=== PATIENT | female | born 1960 | race Hispanic/Latino ===

== ENCOUNTER 2021-12-22 09:03 | Observation (INO) | payer SELFPAY ==
[2021-12-22] VITALS (13 sets, daily range): BP systolic 88–136; BP diastolic 50–83; PULSE 78–130; RESP 12–18; TEMP 36.1–36.7; O2SAT 88–100; BMI 42.3
--- NOTE | 2021-12-22 | GALL_PTH ---
PATIENT: KIERRA FLOWER #:[id number] LOC: MS3 U#:[id number] AGE/SX: 61/F ROOM: NC315 RE12/22/[address]: Dr. Seth Lauren MD : 1960 BED: 1 DIS: 12/24/2021 SPEC #: [id number] RECD: 12/23/21 10:12 STATUS: FAHAD NGUYEN #: [id number] SERGEI: 12/22/21 00:[address]: Seth Lauren DEPT: SURGICAL PATHOLOGY RECD BY: Dominic Molina ENTERED: 12/23/21 10:12 SP TYPE: FUNMI [place] DR: Dr. Daniel Hess MD Tissues: Gallbladder, NOS Procedures: Surgery Specimen Level III HEADER OPERATION: Laparoscopic cholecystectomy with IOC PRE-OP DIAGNOSIS: Acute cholecystitis TISSUE SUBMITTED: Gallbladder MICROSCOPIC DIAGNOSIS Gallbladder, cholecystectomy: Chronic cholecystitis with denudation of mucosa and cholelithiasis. AM:rg 12/26/2021 MICROSCOPIC DESCRIPTION Slides are reviewed. GROSS DESCRIPTION Received is one container labeled with the patient's name and designated gallbladder. The specimen consists of a gallbladder measuring 9 x 4 x 3.5 cm. The external surface is smooth and glistening. Focally, it is granular, hemorrhagic and contains cautery artifact. The lumen of the gallbladder contains yellow-green mucoid bile and multiple chalky-white calculi ranging in size from <0.1 to 0.7 cm in greatest dimension. The gallbladder mucosa is smooth and glistening bile-stained and without any mass lesions. The gallbladder wall averages 0.2 cm in thickness and is free of mass lesions. Copy And [employer] Associate sections of the gallbladder and the cystic duct at margin of resection are submitted in one cassette. / AM:colby 12/23/2021 TC:3 CPT: 95697
--- NOTE | 2021-12-22 09:14 | EKG12_ITS ---
Test Reason : CP Blood Pressure : / mmHG Vent. Rate : 135 BPM Atrial Rate : 135 BPM P-R Int : 132 ms QRS Dur : 064 ms QT Int : 306 ms P-R-T Axes : 049 024 074 degrees QTc Int : 459 ms Sinus tachycardia Nonspecific ST and T wave abnormality Abnormal ECG Confirmed by AMADOR IVAN, ELIDA ([id number]), medical editor VERN VALDOVINOS ([id number]) on 12/26/2021 11:11:15 AM Referred By: MAKENZIE Confirmed By:ELIDA ENGLISH MD
--- NOTE | 2021-12-22 09:14 | CT_ITS ---
STUDY: CT ABDOMEN AND PELVIS WITH CONTRAST REASON FOR EXAM: Female, 61 years old. Abdominal pain RADIATION DOSAGE (If Supplied By Facility): CTDIvol = ( 18.47 ) mGy, DLP = ( 1279.77 ) mGycm TECHNIQUE: Transaxial images were obtained from the dome of the diaphragm to the symphysis pubis without oral contrast. IV 100mL Isovue-300 was administered. Sagittal and coronal images were reconstructed. Individualized dose optimization techniques were used for this CT. COMPARISON: None. FINDINGS: There is shift of the heart and mediastinal structures towards the right hemithorax. Multiple small cystic spaces are seen in the right lower lobe with air-fluid levels. These may represent pneumatoceles or infected bulla. There is evidence of a small right pleural effusion. The visualized portions of the heart are within normal limits. Perihepatic fluid. Decreased size of the liver with the nodular contour suggestive of cirrhosis. Marked degree of a distention of the gallbladder. Mild splenomegaly. Normal pancreas. Normal bilateral adrenal glands. Normal right kidney. Normal left kidney. Residual fluid and fluid seen within the stomach. There is diffuse thickening of the gastric wall. A mass lesion should be ruled out. Normal small intestine. There are multiple colonic diverticula consistent with diverticulosis. There is a tubular, thick-walled appendix (>7mm), consistent with acute appendicitis. Normal abdominal aorta. Normal inferior vena cava. Normal retroperitoneum. Increased markings within the mesenteric fat. Inflammatory process should be ruled out. Normal urinary bladder. Fluid is seen within the pelvis. There is evidence of an umbilical hernia containing fat. Normal osseous structures. CT/Abdomen/Pelvis W IV Cont ONLY IMPRESSION: Loss of volume in the right hemithorax with multiple cystic spaces in the right lower lobe with air-fluid levels. Ascites. Findings suggestive of cirrhosis of the liver. Markedly distended gallbladder. There is thickening of the appendix and keep with appendicitis. Increased markings in the mesenteric fat suggestive of inflammatory changes. Sigmoid diverticulosis. Electronically Signed: Valeriano Hull MD at 11:03 EST ,
--- NOTE | 2021-12-22 09:15 | US_ITS ---
STUDY: ABDOMINAL ULTRASOUND - RIGHT UPPER QUADRANT REASON FOR VISIT: Female, 61 years old abdominal pain. Nausea and vomiting. TECHNIQUE: Ultrasound evaluation of the right upper quadrant was performed with real-time and static novak-scale imaging. TECHNICAL QUALITY: Limited. Examination limited due to the patient?s condition. COMPARISON: None. FINDINGS: Liver: The liver measures 14.1 cm. There is a heterogeneous echogenicity of the liver. The bile ducts are within normal limits. There is hepatic color flow. The direction of portal flow is hepatopetal. There is no demonstrated mass lesion. Gallbladder: There is a markedly distended gallbladder. The gallbladder wall is thickened and measures 10.6 mm. There is a positive sonographic Mock''s sign. There is pericholecystic fluid. There are multiple echogenic structures within the gallbladder, consistent with multiple gallstones. Common Bile Duct (C.B.D.): The common bile duct was not visualized. Pancreas: There is nonvisualization of the pancreas due to overlying bowel gas. Right Kidney: Normal size of the right kidney. The right kidney measures 10.9 cm x 5.9 cm x 5.5 cm. Normal renal cortex. The right cortex measures 1.7 cm. There is no demonstrated renal mass or cyst. There is no right hydronephrosis. US/Gallbladder IMPRESSION: Heterogeneous hepatic echotexture. Thickening gallbladder wall with distention and multiple gallstones. Electronically Signed: Valeriano Hull MD at 11:05 EST ,
--- NOTE | 2021-12-22 09:16 | ED.VIS.GI ---
HPI HPI - GI History of Present Illness Chief Complaint: Abd Pain Narrative Narrative: History and physical is mildly limited secondary to language barrier. Patient speaks mainly Marshallese. 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 Additionally, I can speak conversational Marshallese to a small to moderate degree. Patient presents to the emergency department this morning with epigastric to right upper quadrant abdominal pain. She had normal bowel movement today. She denies any exacerbating or alleviating factors. No fevers or chills. She vomited once with a small amount of blood. She does not take blood thinners. She denies any significant past medical history except for she has been treated for bronchitis with an inhaler. She denies any chest pain. No other symptoms. She complains of pain in the upper portion of her abdomen. [facility] Medical History Bronchitis Allergy/AdvReac Type Severity Reaction Status Date / Time No Known Allergies Allergy Verified 12/22/21 09:11 Surgical History no surgical history Social History Smoking Status: Never smoker ROS ROS ED ROS Narrative Constitutional: No fever, no chills. HEENT: No sore throat. No neck pain. No loss of vision. No rhinorrhea. Cardiovascular: No chest pain. No palpitations. No pedal edema. Respiratory: No cough, no shortness of breath. Abdominal: Epigastric to right upper quadrant abdominal pain. Positive nausea. 1 episode of vomiting with a small amount of blood. Genitourinary: No dysuria. No hematuria. Musculoskeletal: No myalgias. No arthralgias. Neurologic: No headaches. No dizziness. No lightheadedness. Skin: No rash. No change in color. Psychiatric: No depression. No anxiety. EXAM Physical Exam Narrative Exam Narrative: Afebrile. Vital signs noted. HEENT: Normocephalic. Atraumatic. PERRL, EOMI. Neck soft and supple. No point tenderness or step off. Cardiovascular: Positive tachycardia no murmurs, rubs, or gallops appreciated. Respiratory: No tachypnea. Lungs clear to auscultation bilaterally. Gastrointestinal: Abdomen soft, with tenderness to palpation in the epigastrium to right upper quadrant, with normoactive bowel sounds. No rebound or guarding. Questionable Mock sign, limited secondary to body habitus. Neurological: Awake. Alert. Nonfocal, nonlateralizing. Skin: No rash. Normal color. No pallor. Musculoskeletal: No pedal edema. Full range of motion extremities. Const Vital Signs: 12/22/21 09:07 12/22/21 10:47 Temperature 97.8 F Temperature Source Temporal Pulse Rate 130 H 116 H Respiratory Rate 12 12 Blood Pressure 136/83 H 102/58 L Blood Pressure Mean 100 72 Pulse Ox 99 100 Oxygen Delivery Method Room Air Room Air MDM MDM MDM Narrative Medical decision making narrative: Comprehensive work-up was pursued. Her EKG shows sinus tachycardia at a rate of [address] changes/no STEMI. She was administered morphine and ondansetron and will be bolused normal saline. I have concern that while she may have pancreatitis versus cholecystitis. She has normal white count of 9.7, hemoglobin stable at 11.2, platelet count normal at 172. Lactic acid elevated at 3.1. Lipase normal at 55. High-sensitivity troponin negative at 8. She has an elevated alk phos at 187, AST and ALT only slightly elevated at 39 and the other being normal. I did obtain a CT of the abdomen and pelvis along with an ultrasound of the right upper quadrant. It appears that she has an acute appendicitis because it is tubular, and dilated greater than 7 mm. Additionally, she has gallstones and a thickened gallbladder wall at 10.6 mm. Common bile duct was not visualized. She was started on Zosyn. I did discuss the patient with Dr. Sutton with general surgery who will admit her and take her to the operating room. Additionally, it was noted on her CT that she has cirrhosis of the liver along with ascites, and bullae in her right lower lobe of her lung that have air-fluid levels in it. I do feel these are more incidental findings when compared to her acute appendicitis and acute cholecystitis. Patient will be admitted in stable condition. Lab Data Labs: Laboratory Results - last 24 hr 12/22/21 12/22/21 12/22/21 09:10 09:10 09:10 WBC 9.7 RBC 3.45 L Hgb 11.2 L Hct 34.4 L MCV 99.7 H MCH 32.5 H MCHC 32.6 RDW Std Deviation 53.9 H RDW Coeff of Blas 14.6 Plt Count 172 MPV 10.2 Immature Gran % (Auto) 0.200 Neut % (Auto) 64.5 Lymph % (Auto) 29.6 [place] % (Auto) 5.1 Eos % (Auto) 0.2 Baso % (Auto) 0.4 Absolute Neuts (auto) 6.3 Absolute Lymphs (auto) 2.87 Nucleated RBC % 0 PT INR Sodium 141 Potassium 4.2 Chloride 108 H Carbon Dioxide 30.0 Anion Gap 3 L BUN 29 H Creatinine 0.70 Estim Creat Clear Calc 62.16 Est GFR (MDRD) Af Amer 110 Est GFR (MDRD) Non-Af 91 BUN/Creatinine Ratio 41.5 H Glucose 124 H Lactic Acid 3.1 H* Calcium 7.6 L Total Bilirubin 2.00 H AST 39 H ALT 26 Alkaline Phosphatase 187 H Troponin I High Sens 8 Total Protein 6.7 Albumin 2.0 L Globulin 4.7 H Albumin/Globulin Ratio 0.4 L Lipase 55 L 12/22/21 09:10 WBC RBC Hgb Hct MCV MCH MCHC RDW Std Deviation RDW Coeff of Blas Plt Count MPV Immature Gran % (Auto) Neut % (Auto) Lymph % (Auto) [place] % (Auto) Eos % (Auto) Baso % (Auto) Absolute Neuts (auto) Absolute Lymphs (auto) Nucleated RBC % PT 19.4 H INR 1.7 Sodium Potassium Chloride Carbon Dioxide Anion Gap BUN Creatinine Estim Creat Clear Calc Est GFR (MDRD) Af Amer Est GFR (MDRD) Non-Af BUN/Creatinine Ratio Glucose Lactic Acid Calcium Total Bilirubin AST ALT Alkaline Phosphatase Troponin I High Sens Total Protein Albumin Globulin Albumin/Globulin Ratio Lipase Radiography Diagnostic Testing: Clinical Impression(s) from Imaging Studies Abdomen/Pelvis CT 12/22/21 09:14 IMPRESSION: Loss of volume in the right hemithorax with multiple cystic spaces in the right lower lobe with air-fluid levels. Ascites. Findings suggestive of cirrhosis of the liver. Markedly distended gallbladder. There is thickening of the appendix and keep with appendicitis. Increased markings in the mesenteric fat suggestive of inflammatory changes. Sigmoid diverticulosis. Electronically Signed: Valeriano Hull MD at 11:03 EST , Gallbladder Ultrasound 12/22/21 09:15 IMPRESSION: Heterogeneous hepatic echotexture. Thickening gallbladder wall with distention and multiple gallstones. Electronically Signed: Valeriano Hull MD at 11:05 EST , Discharge Plan Dx/Rx/DC Orders Clinical Impression: Cholecystitis, Appendicitis, Lactic acidosis, Cirrhosis of liver, Lung bullae Disposition Disposition: Acute Care Hospital [facility]
[2021-12-22] MEDS: 0.9% Normal Saline 1,000 ML 1000 ML IV (09:19)
[2021-12-22] MEDS: Ondansetron 4 MG/2 ML Vial IV ×3 (09:19→22:02)
[2021-12-22] MEDS: Morphine 4 MG/ML Syringe IV (09:19)
[2021-12-22 09:31] LABS: Absolute Lymphocyte Count 2.87 X10^3/uL (0.83-4.51); Absolute Neutrophil Count 6.3 X10^3/uL (2.0-7.7); Basophil# 0.04 X10^3/uL; Basophil% 0.4 % (0-1); Eosinophil# 0.02 X10^3/uL; Eosinophils% 0.2 % (0-5); Hematocrit 34.4 % (37-47); Hemoglobin 11.2 g/dL (12.0-15.0); Lymphocyte # 2.87 X10^3/ul (0.83-4.51); Lymphocyte % 29.6 % (19-41); Mean Corp Hgb Conc 32.6 g/dL (32-36); Mean Corpuscular Hgb 32.5 pg (27.0-32.0); Mean Corpuscular Volume 99.7 fL (81-99); Mean Platelet Vol. 10.2 fl (6.2-12.0); Monocyte# 0.49 X10^3/uL; Monocyte% 5.1 % (0-10); NRBC Flagged by Analyzer 0 % (0-5); Neutrophil # 6.26 X10^3/uL (2.7-7.7); Neutrophil % 64.5 % (47-70); Platelet Count 172 K/mm3 (150-450); RBC Distribution Width CV 14.6 % (11.6-14.6); RBC Distribution Width SD 53.9 fl (35.1-43.9); Red Blood Count 3.45 M/mm3 (4.2-5.4); White Blood Count 9.7 K/mm3 (4.4-11.0)
[2021-12-22 09:48] LABS: ALB/GLOB Ratio 0.4 RATIO (0.9-2.4); AST(SGOT) 39 U/L (15-37); Alanine Aminotransfer ALT/SGPT 26 U/L (13-56); Alkaline Phosphatase 187 U/L (45-117); Anion Gap 3 (5-15); BUN 29 mg/dL (7-18); BUN/Creat Ratio 41.5 RATIO (10-20); Calcium,Total 7.6 mg/dL (8.5-10.1); Chloride 108 mmol/L (98-107); EST Glomerular Filtration Rate 91 mL/min (>60); Est Glom Filt Rate - Afr Amer 110 mL/min (>60); Estimated Creatinine Clearance 62.16 ml/min; Globulin 4.7 g/dL (2.2-4.2); Glucose 124 mg/dL (74-106); Lipase 55 U/L (73-393); Potassium 4.2 mmol/L (3.5-5.1); Protein, Total 6.7 g/dL (6.4-8.2); Sodium Level 141 mmol/L (136-145); Troponin-I HS 8 pg/mL (3.0-54.0)
[2021-12-22 09:58] LABS: Lactic Acid 3.1 mmol/L (0.4-1.9)
[2021-12-22] MEDS: 0.9% Normal Saline 1,000 ML 999 ML IV (10:32)
[2021-12-22 12:06] LABS: International Normalized Ratio 1.7; Prothrombin Time (Protime)PT. 19.4 SECONDS (11.7-14.9)
--- NOTE | 2021-12-22 12:17 | PCM.HP.STD ---
HPI - General HPI Narrative KIERRA FOSTER, is a 61 F who presents with epigastric pain. No fevers or chills. No nausea or vomiting. PFSH Medical History Bronchitis Allergy/AdvReac Type Severity Reaction Status Date / Time No Known Allergies Allergy Verified 12/22/21 09:11 Surgical History no surgical history Social History Smoking Status: Never smoker ROS Constitutional Constitutional: Denies anorexia or fatigue Cardiovascular Cardiovascular: Denies chest pain Respiratory/Chest Respiratory/Chest: Denies cough Gastrointestinal Gastrointestinal: Reports abdominal pain; Denies nausea or vomiting Genitourinary Genitourinary: Denies difficulty urinating Musculoskeletal Musculoskeletal: Denies difficulty walking Integumentary Integumentary: Denies jaundice Neurologic Neurologic: Denies abnormal gait Psychiatric Psychiatric: Denies anxiety Endocrine Endocrinology: Denies flushing Vital Signs Vital Signs Vital Signs: 12/22/21 09:07 12/22/21 10:47 Temperature 97.8 F Temperature Source Temporal Pulse Rate 130 H 116 H Respiratory Rate 12 12 Blood Pressure 136/83 H 102/58 L Blood Pressure Mean 100 72 Pulse Ox 99 100 Oxygen Delivery Method Room Air Room Air Weight Weight: 216 lb 14.958 oz Body Mass Index (BMI) 42.3 Physical Exam Const oriented x3 and no apparent distress Resp normal respiratory effort Cardio regular rate and regular rhythm GI soft to palpation Palpation: tender epigastric Results Lab / Micro Data Result Diagrams: 12/22/21 09:10 12/22/21 09:10 Labs: Laboratory Results - last 24 hr 12/22/21 09:10: WBC 9.7, RBC 3.45 L, Hgb 11.2 L, Hct 34.4 L, MCV 99.7 H, MCH 32.5 H, MCHC 32.6, RDW Std Deviation 53.9 H, RDW Coeff of Blas 14.6, Plt Count 172, MPV 10.2, Immature Gran % (Auto) 0.200, Neut % (Auto) 64.5, Lymph % (Auto) 29.6, [place] % (Auto) 5.1, Eos % (Auto) 0.2, Baso % (Auto) 0.4, Absolute Neuts (auto) 6.3, Absolute Lymphs (auto) 2.87, Nucleated RBC % 0 12/22/21 09:10: Sodium 141, Potassium 4.2, Chloride 108 H, Carbon Dioxide 30.0, Anion Gap 3 L, BUN 29 H, Creatinine 0.70, Estim Creat Clear Calc 62.16, Est GFR (MDRD) Af Amer 110, Est GFR (MDRD) Non-Af 91, BUN/Creatinine Ratio 41.5 H, Glucose 124 H, Calcium 7.6 L, Total Bilirubin 2.00 H, AST 39 H, ALT 26, Alkaline Phosphatase 187 H, Troponin I High Sens 8, Total Protein 6.7, Albumin 2.0 L, Globulin 4.7 H, Albumin/Globulin Ratio 0.4 L, Lipase 55 L 12/22/21 09:10: Lactic Acid 3.1 H* 12/22/21 09:10: PT 19.4 H, INR 1.7 Micro: Microbiology 12/22/21 11:20 Nasal Secretion SARS-CoV-2 Antigen (Rapid) - Final Radiology Impression Abdomen/Pelvis CT 12/22/21 09:14 IMPRESSION: Loss of volume in the right hemithorax with multiple cystic spaces in the right lower lobe with air-fluid levels. Ascites. Findings suggestive of cirrhosis of the liver. Markedly distended gallbladder. There is thickening of the appendix and keep with appendicitis. Increased markings in the mesenteric fat suggestive of inflammatory changes. Sigmoid diverticulosis. Electronically Signed: Valeriano Hull MD at 11:03 EST , Gallbladder Ultrasound 12/22/21 09:15 IMPRESSION: Heterogeneous hepatic echotexture. Thickening gallbladder wall with distention and multiple gallstones. Electronically Signed: Valeriano Hull MD at 11:05 EST , Assessment & Plan Assessment/Plan (1) Cholecystitis: (2) Appendicitis: QUALIFIERS: Appendicitis type: unspecified Qualified Code(s): K37 - Unspecified appendicitis (3) Cirrhosis of liver: QUALIFIERS: Hepatic cirrhosis type: unspecified hepatic cirrhosis Ascites presence: with ascites Qualified Code(s): K74.60 - Unspecified cirrhosis of liver; R18.8 - Other ascites PLAN: Patient has epigastric pain and a CT scan shows a very distended gallbladder as well as cirrhosis of the liver with ascites. Patient also has inflammation around the right lower quadrant with possible acute appendicitis. Gallbladder ultrasound shows cholelithiasis with thickened wall. There is a lot of fluid and a lot of epigastric pain and a very large gallbladder so I do recommend laparoscopic cholecystectomy with cholangiogram. I did discuss with the patient that she is at increased risk due to her cirrhosis. I also discussed possible appendectomy if the appendix appears inflamed. I discussed the procedure in detail with the patient. I discussed the risks, benefits, and alternatives of the procedure. I discussed the risks including but not limited to bleeding, infection, injury to surrounding organs such as the liver, bile duct, bowels. I did discuss the possibility of having to convert to an open procedure as well as the possibility that if any injuries occurred this may necessitate further surgery at a tertiary care center. Seth Lauren MD Pager: [facility] [address] [place] [address], [address] [place] [address] Office:
[2021-12-22] MEDS: Metoclopramide 10 MG/2 ML Vial IV (12:27)
[2021-12-22] MEDS: Lactated Ringers 1,000 ML 15 ML IV ×2 (12:52→15:30)
[2021-12-22 13:27] LABS: Reflex Lactate? Y
[2021-12-22 14:46] LABS: Lactic Acid 2.9 mmol/L (0.4-1.9)
--- NOTE | 2021-12-22 14:59 | RAD_ITS ---
CLINICAL HISTORY: Female, 61 years old. Right upper quadrant pain PROCEDURE: CHOLANGIOGRAM - intraoperative FLUOROSCOPY TIME (if supplied): ( ) minutes/seconds Placement of the catheter and the procedure were performed by: Operating surgeon Fluoroscopy was provided by rn radiology, who was present in the room time of the procedure. TECHNIQUE: Fluoroscopic guidance transhepatic cholangiogram was performed in the anterior projection. 162 fluoroscopic guided dynamic images were obtained during the procedure as well as additional static images during the procedure for documentation purposes. For more complete information recommend correlation with surgical notes RAD/Cholangiogram/ O R,Initial IMPRESSION: Fluoroscopic guided transhepatic cholangiogram. Electronically Signed: Eldon Olivares MD at 16:55 EST ,
[2021-12-22] MEDS: Bupivacaine Mpf 0.5% 30 ML VIAL (15:00)
--- NOTE | 2021-12-22 16:02 | OP.PCM_ITS ---
Problems Associated Problem List Diagnoses (1) Cholecystitis: Report of Operation Date of Procedure: 12/22/21 Pre-Operative Diagnosis: Acute cholecystitis Post-Operative Diagnosis: Acute cholecystitis and cirrhosis of the liver Surgery/Procedure Performed:: Laparoscopic cholecystectomy with cholangiogram Description of Surgical Findings:: Acute cholecystitis Specimen's removed: Gallbladder Description of Procedure: After obtaining informed consent patient was brought back to the operating room. General anesthesia was induced. The abdomen was prepped and draped in usual sterile fashion. A small midline incision was made superior to the umbilicus and deepened to the level of fascia. The fascia was elevated and incised. Next the peritoneum was elevated and incised in the same fashion. Finger sweep was performed and the Lopes trocar was placed into the abdomen. The balloon was inflated. The abdomen was inflated to 15 mmHg. Next a camera was introduced into the abdomen and the abdomen was inspected. Next under direct visualization three 5-mm ports were placed one subxiphoid and 2 subcostal. Next the gallbladder was elevated and retracted toward the right shoulder. The peritoneum was stripped from the gallbladder. The gallbladder was inflamed. The infundibulum was located and retracted laterally. Next the triangle of Calot was dissected and the cystic duct and cystic artery were identified. Cholangiograms were performed. There was a large stone in the cystic duct. A clip was placed proximal to this and the cystic duct was incised. The stone was milked from the duct and removed. Next the Ranfac catheter was placed through a stab incision in the right upper quadrant into the duct and a clip was placed over it and under fluoroscopy contrast was instilled into the gallbladder and the common duct, cystic duct as well as proximal hepatic ducts were identified. There was good filling of the duodenum. There were no filling defects noted in the common bile duct. The clamp was removed as well as the needle and the infundibulum was grasped once more. The cystic duct was too large for a clip and so it was divided and then a Vicryl Endoloop was placed around it. There is no bile leakage. The cystic artery was clipped and divided. The hook cautery was then used to take the gallbladder off of the gallbladder bed. The patient had clear cirrhosis of the liver. Hemostasis was obtained. Gallbladder fossa was irrigated and no active bleeding or bile leakage was noted. Next the camera was introduced in the subxiphoid port. An Endopouch bag was placed through the umbilical port and the gallbladder was placed into it. The gallbladder was then removed through the umbilical incision. The camera was then reinserted through the umbilical port. The gallbladder fossa was inspected once more and noted to be hemostatic with no leaking bile. The abdomen was suctioned dry. The 5 mm ports were removed under direct visualization. The umbilical port was then removed and the air was removed from the abdomen. Next using an 0 Vicryl suture the umbilical fascia was closed in a [id number] fashion. The umbilical port site was irrigated local anesthetic was administered to all the incisions. All the incisions were closed with interrupted subcuticular 4-0 Monocryl sutures followed by Steri- Strips and dressings. The patient was awoken and taken to PACU in stable condition. Admit VTE Documentation VTE Mechan Device Prophylaxis: SCD's
--- NOTE | 2021-12-22 16:52 | SUR.PHASEI ---
PATIENT IS MONITORED ON ETCO2 NASAL CANNULA IN PACU. WILL CONTINUE TO MONITOR.
--- NOTE | 2021-12-22 17:52 | CON.PCM.GI_ITS ---
HPI Consult Data Date of Consult: 12/22/21 HPI Narrative HPI Narrative: KIERRA FOSTER, is a 61 F who presentsFrom home with worsening abdominal pain. All the history is obtained from her son as she is only Icelandic-speaking. She has no history of alcoholism. She has no history of hepatitis C. She has not received any blood transfusions. She has not seen a liver doctor for cirrhosis. There is shift of the heart and mediastinal structures towards the right hemithorax. Multiple small cystic spaces are seen in the right lower lobe with air-fluid levels. These may represent pneumatoceles or infected bulla. There is evidence of a small right pleural effusion. The visualized portions of the heart are within normal limits. Perihepatic fluid. Decreased size of the liver with the nodular contour suggestive of cirrhosis. Marked degree of a distention of the gallbladder. Mild splenomegaly. Normal pancreas. Normal bilateral adrenal glands. Normal right kidney. Normal left kidney. Residual fluid and fluid seen within the stomach. There is diffuse thickening of the gastric wall. A mass lesion should be ruled out. Normal small intestine. There are multiple colonic diverticula consistent with diverticulosis. There is a tubular, thick-walled appendix (>7mm), consistent with acute appendicitis. Normal abdominal aorta. Normal inferior vena cava. Normal retroperitoneum. Increased markings within the mesenteric fat. Inflammatory process should be ruled out. Normal urinary bladder. Fluid is seen within the pelvis. There is evidence of an umbilical hernia containing fat. Normal osseous structures. PFSH Medical History Bronchitis Allergy/AdvReac Type Severity Reaction Status Date / Time No Known Allergies Allergy Verified 12/22/21 09:11 Surgical History no surgical history Social History Smoking Status: Never smoker ROS Gastrointestinal Gastrointestinal: Reports abdominal pain Physical Exam Const alert General Appearance: cooperative Orientation / Consciousness: oriented to person HEENT hearing grossly normal bilaterally Head and Scalp: normal to inspection Face and Sinus: face symmetric Nose: external nose normal Mouth: oral and palatal mucosa normal Eyes conjunctivae normal General Eye: normal appearance of both eyes Neck full ROM General: normal visual inspection Lymph Lymphatic: no lymphadenopathy noted Chest inspection of chest normal and palpation of chest normal Chest: symmetrical chest wall rise Resp normal respiratory effort Cardio regular rate GI non-distended Percussion: normal to percussion Rectal Exam: deferred Neuro Speech: speech normal Lab / Micro Data Result Diagrams: 12/22/21 09:10 12/22/21 09:10 Labs: Laboratory Results - last 24 hr 12/22/21 09:10: WBC 9.7, RBC 3.45 L, Hgb 11.2 L, Hct 34.4 L, MCV 99.7 H, MCH 32.5 H, MCHC 32.6, RDW Std Deviation 53.9 H, RDW Coeff of Blas 14.6, Plt Count 172, MPV 10.2, Immature Gran % (Auto) 0.200, Neut % (Auto) 64.5, Lymph % (Auto) 29.6, [place] % (Auto) 5.1, Eos % (Auto) 0.2, Baso % (Auto) 0.4, Absolute Neuts (auto) 6.3, Absolute Lymphs (auto) 2.87, Nucleated RBC % 0 12/22/21 09:10: Sodium 141, Potassium 4.2, Chloride 108 H, Carbon Dioxide 30.0, Anion Gap 3 L, BUN 29 H, Creatinine 0.70, Estim Creat Clear Calc 62.16, Est GFR (MDRD) Af Amer 110, Est GFR (MDRD) Non-Af 91, BUN/Creatinine Ratio 41.5 H, Glucose 124 H, Calcium 7.6 L, Total Bilirubin 2.00 H, AST 39 H, ALT 26, Alkaline Phosphatase 187 H, Troponin I High Sens 8, Total Protein 6.7, Albumin 2.0 L, Globulin 4.7 H, Albumin/Globulin Ratio 0.4 L, Lipase 55 L 12/22/21 09:10: Lactic Acid 3.1 H* 12/22/21 09:10: PT 19.4 H, INR 1.7 12/22/21 14:10: Lactic Acid 2.9 H* Micro: Microbiology 12/22/21 11:20 Nasal Secretion SARS-CoV-2 Antigen (Rapid) - Final Radiology Impression Abdomen/Pelvis CT 12/22/21 09:14 IMPRESSION: Loss of volume in the right hemithorax with multiple cystic spaces in the right lower lobe with air-fluid levels. Ascites. Findings suggestive of cirrhosis of the liver. Markedly distended gallbladder. There is thickening of the appendix and keep with appendicitis. Increased markings in the mesenteric fat suggestive of inflammatory changes. Sigmoid diverticulosis. Electronically Signed: Valeriano Hull MD at 11:03 EST , Gallbladder Ultrasound 12/22/21 09:15 IMPRESSION: Heterogeneous hepatic echotexture. Thickening gallbladder wall with distention and multiple gallstones. Electronically Signed: Valeriano Hull MD at 11:05 EST , Cholangiogram 12/22/21 14:59 IMPRESSION: Fluoroscopic guided transhepatic cholangiogram. 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 Her current meld is 22. She is decompensated at this time secondary to acute cholecystitis. I believe that she has a mild right hepatic hydrothorax. She is satting well on room air and not in any respiratory compromise despite her bullous disease of her lungs and mediastinal shift of her heart. She should probably be seen by pulmonary for chronic lung disease. Her INR is elevated. Therefore I will give her 5 mg of vitamin K. - I will also place her on Xifaxan 550 mg twice a day for hepatic encephalopathy prophylaxis along with lactulose 20 mg a day. She will also need to be on ursodiol 550mg to prevent further decompensated liver disease. -She has some diffuse thickening on her stomach that is seen on CT scan possibly secondary to under distention and should be assessed for gastric varices. Right now her blood pressure is low, therefore we do not need beta-nathan therapy. -She also had some ascites that was seen on imaging. She will need Lasix 20 mg and Aldactone 12.5 mg a day so she does not redevelop an hepatic hydrothorax or expand hydrothorax. She should also get albumin overnight. -Possible dextrocardia. Her son did not know that her heart was on the right side. She does not seem to be experiencing any signs of right heart failure at this time. I Would watch her fluid balance. -Repeat INR, LFTs, CBC and CMP, ammonia in the AM
[2021-12-22] MEDS: Albumin Human 25% (50 mL) 12.5 GM/50 ML IV.SOLN IV (19:02)
[2021-12-22] MEDS: Morphine 2 MG/ML Syringe IV ×2 (19:10→21:57)
[2021-12-22] MEDS: 0.9% Saline Lock 10 ML Syringe IV (19:11)
[2021-12-22] MEDS: Furosemide 20 MG Tablet PO (19:19)
[2021-12-22] MEDS: 0.9% Normal Saline 1,000 ML 100 ML IV (20:00)
[2021-12-22] MEDS: rifAXIMin 550 MG Tablet PO (22:16)
[2021-12-22] MEDS: Spironolactone 25 MG Tablet 12.5 MG PO (22:16)
[2021-12-22] MEDS: Pantoprazole Sodium 20 MG Tablet PO (22:16)
--- NOTE | 2021-12-22 23:03 | NURSING ---
Patient having difficulty understanding how to use the purewick. patient assisted up to the BSC and XLG incontinence of urine noted. Patient assisted to the BSC to finish voiding and to do bed change of linens. X2 assist to BSC- tolerated well
[2021-12-23] VITALS (10 sets, daily range): BP systolic 94–109; BP diastolic 53–74; PULSE 78–99; RESP 16–18; TEMP 36.5–37.2; O2SAT 84–100
[2021-12-23 06:01] LABS: Absolute Neutrophil Count 7.9 X10^3/uL (2.0-7.7); Basophil# 0.02 X10^3/uL; Basophil% 0.2 % (0-1); Hematocrit 28.7 % (37-47); Hemoglobin 8.9 g/dL (12.0-15.0); Lymphocyte % 15.4 % (19-41); Mean Corpuscular Hgb 31.1 pg (27.0-32.0); Mean Corpuscular Volume 100.3 fL (81-99); Mean Platelet Vol. 9.8 fl (6.2-12.0); Monocyte# 0.27 X10^3/uL; Monocyte% 2.8 % (0-10); NRBC Flagged by Analyzer 0 % (0-5); Neutrophil # 7.91 X10^3/uL (2.7-7.7); Neutrophil % 81.1 % (47-70); Platelet Count 139 K/mm3 (150-450); RBC Distribution Width SD 55.8 fl (35.1-43.9); Red Blood Count 2.86 M/mm3 (4.2-5.4); White Blood Count 9.8 K/mm3 (4.4-11.0)
[2021-12-23] MEDS: 0.9% Normal Saline 1,000 ML 100 ML IV (06:18)
[2021-12-23 06:34] LABS: ALB/GLOB Ratio 0.5 RATIO (0.9-2.4); AST(SGOT) 71 U/L (15-37); Alanine Aminotransfer ALT/SGPT 38 U/L (13-56); Alkaline Phosphatase 145 U/L (45-117); Anion Gap 1 (5-15); BUN 28 mg/dL (7-18); BUN/Creat Ratio 44.1 RATIO (10-20); Calcium,Total 7.2 mg/dL (8.5-10.1); Chloride 110 mmol/L (98-107); Creatinine, Serum 0.64 mg/dL (0.55-1.02); EST Glomerular Filtration Rate 102 mL/min (>60); Est Glom Filt Rate - Afr Amer 123 mL/min (>60); Estimated Creatinine Clearance 67.98 ml/min; Globulin 4.1 g/dL (2.2-4.2); Glucose 160 mg/dL (74-106); Potassium 4.2 mmol/L (3.5-5.1); Protein, Total 6.1 g/dL (6.4-8.2); Sodium Level 143 mmol/L (136-145)
--- NOTE | 2021-12-23 07:51 | CPS ---
Unable to perform, language barrier difficult for pt to understand instructions, weak effort
--- NOTE | 2021-12-23 07:55 | PCM.PROGNOTE ---
Subjective Subjective Patient is postop day 1 from cholecystectomy. She did very well overnight. She has minimal abdominal pain. She does not speak Lithuanian so all of her responses are through her son. She has no fever. She denies any dark in urine. She had no episodes of altered mental status overnight. As per her son she seems to be at her baseline. Objective Data Objective Data Vital Signs: Vital Signs Temp Pulse Resp BP Pulse Ox 98.0 F 97 18 100/53 L 98 12/23/21 05:44 12/23/21 05:44 12/23/21 05:44 12/23/21 05:44 12/23/21 07:47 Oxygen Flow Rate (L/min) 2 Oxygen Delivery Method Nasal Cannula Weight: 216 lb 14.958 oz Body Mass Index (BMI) 42.3 Intake & Output: Intake and Output for Last 24 Hours 12/21/21 12/22/21 12/23/21 23:59 23:59 23:59 Intake Total 3150.5 / 3150.5 1356.5 / 1356.5 Output Total 200 / 200 300 / 300 Balance 2950.5 / 2950.5 1056.5 / 1056.5 Lab / Micro Data Result Diagrams: 12/23/21 05:52 12/23/21 05:52 Labs: Laboratory Results - last 24 hr 12/22/21 09:10: WBC 9.7, RBC 3.45 L, Hgb 11.2 L, Hct 34.4 L, MCV 99.7 H, MCH 32.5 H, MCHC 32.6, RDW Std Deviation 53.9 H, RDW Coeff of Blas 14.6, Plt Count 172, MPV 10.2, Immature Gran % (Auto) 0.200, Neut % (Auto) 64.5, Lymph % (Auto) 29.6, [place] % (Auto) 5.1, Eos % (Auto) 0.2, Baso % (Auto) 0.4, Absolute Neuts (auto) 6.3, Absolute Lymphs (auto) 2.87, Nucleated RBC % 0 12/22/21 09:10: Sodium 141, Potassium 4.2, Chloride 108 H, Carbon Dioxide 30.0, Anion Gap 3 L, BUN 29 H, Creatinine 0.70, Estim Creat Clear Calc 62.16, Est GFR (MDRD) Af Amer 110, Est GFR (MDRD) Non-Af 91, BUN/Creatinine Ratio 41.5 H, Glucose 124 H, Calcium 7.6 L, Total Bilirubin 2.00 H, AST 39 H, ALT 26, Alkaline Phosphatase 187 H, Troponin I High Sens 8, Total Protein 6.7, Albumin 2.0 L, Globulin 4.7 H, Albumin/Globulin Ratio 0.4 L, Lipase 55 L 12/22/21 09:10: Lactic Acid 3.1 H* 12/22/21 09:10: PT 19.4 H, INR 1.7 12/22/21 14:10: Lactic Acid 2.9 H* 12/22/21 18:50: Ammonia 31.0 12/23/21 05:52: WBC 9.8, RBC 2.86 L, Hgb 8.9 L, Hct 28.7 L, MCV 100.3 H, MCH 31.1, MCHC 31.0 L, RDW Std Deviation 55.8 H, RDW Coeff of Blas 15.0 H, Plt Count 139 L, MPV 9.8, Immature Gran % (Auto) 0.500, Neut % (Auto) 81.1 H, Lymph % (Auto) 15.4 L, [place] % (Auto) 2.8, Eos % (Auto) 0.0, Baso % (Auto) 0.2, Absolute Neuts (auto) 7.9 H, Absolute Lymphs (auto) 1.50, Nucleated RBC % 0 12/23/21 05:52: Sodium 143, Potassium 4.2, Chloride 110 H, Carbon Dioxide 32.0, Anion Gap 1 L, BUN 28 H, Creatinine 0.64, Estim Creat Clear Calc 67.98, Est GFR (MDRD) Af Amer 123, Est GFR (MDRD) Non-Af 102, BUN/Creatinine Ratio 44.1 H, Glucose 160 H, Calcium 7.2 L, Total Bilirubin 0.90, AST 71 H, ALT 38, Alkaline Phosphatase 145 H, Total Protein 6.1 L, Albumin 2.0 L, Globulin 4.1, Albumin/Globulin Ratio 0.5 L Micro: Microbiology 12/22/21 11:20 Nasal Secretion SARS-CoV-2 Antigen (Rapid) - Final Radiography Diagnostic Testing: Radiology Impression Abdomen/Pelvis CT 12/22/21 09:14 IMPRESSION: Loss of volume in the right hemithorax with multiple cystic spaces in the right lower lobe with air-fluid levels. Ascites. Findings suggestive of cirrhosis of the liver. Markedly distended gallbladder. There is thickening of the appendix and keep with appendicitis. Increased markings in the mesenteric fat suggestive of inflammatory changes. Sigmoid diverticulosis. Electronically Signed: Valeriano Hull MD at 11:03 EST , Gallbladder Ultrasound 12/22/21 09:15 IMPRESSION: Heterogeneous hepatic echotexture. Thickening gallbladder wall with distention and multiple gallstones. Electronically Signed: Valeriano Hull MD at 11:05 EST , Cholangiogram 12/22/21 14:59 IMPRESSION: Fluoroscopic guided transhepatic cholangiogram. Electronically Signed: Eldon Olivares MD at 16:55 EST , Physical Exam Const alert General Appearance: cooperative Orientation / Consciousness: oriented to person HEENT hearing grossly normal bilaterally Head and Scalp: normal to inspection Face and Sinus: face symmetric Nose: external nose normal Mouth: oral and palatal mucosa normal Eyes conjunctivae normal General Eye: normal appearance of both eyes Neck full ROM General: normal visual inspection Lymph Lymphatic: no lymphadenopathy noted Chest inspection of chest normal and palpation of chest normal Chest: symmetrical chest wall rise Resp normal respiratory effort Effort and Inspection: able to speak in complete sentences Cardio regular rate GI non-distended Percussion: normal to percussion Rectal Exam: deferred Neuro Speech: speech normal Gait (Neuro): normal gait Charges/Coding Visit Charges Inpatient E&M: 93936 Subs Hosp L3 Assessment & Plan Assessment & Plan (1) Cholecystitis: (2) Cirrhosis of liver: Qualifiers: Hepatic cirrhosis type: unspecified hepatic cirrhosis Ascites presence: with ascites Qualified Code(s): K74.60 - Unspecified cirrhosis of liver; R18.8 - Other ascites Plan: Patient is doing well and not showing any signs of decompensation at this time. Her labs continue to improve. She is not having any signs of encephalopathy, GI bleed and does not seem to be developing any ascites. INR is relatively the same and her platelets are mildly low which could be an acute phase reactant. Her blood pressure is stable and she is satting well.Patient can be discharged to home with close follow-up in a week and a half or 2 weeks at the GI clinic for management of her cirrhosis. I would send her home on lactulose 10 mg Twice a dayAs her risk of decompensation in the Next 7 to 10 days as the highest.She will need follow-up labs within the next week.
--- NOTE | 2021-12-23 09:26 | CASEMGMT ---
Social Work Note Pt is listed as self-pay. SW placed a call to [facility] and left message with Coleen to see if they will follow up with pt. Per [facility] notes, pt's son was provided ER Self pay Incentive program information and [employer]CAP application. Katherine Dee EMAIL DESIGNER, HOSPITALIST PHYSICIAN
--- NOTE | 2021-12-23 09:51 | PCM.PN.SRG ---
Subjective Subjective Patient reports no pain this morning. She reports feeling much better. She has not tried clear liquids yet. Objective Data Objective Data Vital Signs: Vital Signs Temp Pulse Resp BP Pulse Ox 97.7 F L 91 16 94/56 L 99 12/23/21 08:30 12/23/21 08:30 12/23/21 08:30 12/23/21 08:30 12/23/21 08:30 Oxygen Flow Rate (L/min) 2 Oxygen Delivery Method Nasal Cannula Weight: 216 lb 14.958 oz Body Mass Index (BMI) 42.3 Intake & Output: Intake and Output for Last 24 Hours 12/21/21 12/22/21 12/23/21 23:59 23:59 23:59 Intake Total 3150.5 / 3150.5 1451.5 / 1451.5 Output Total 200 / 200 300 / 300 Balance 2950.5 / 2950.5 1151.5 / 1151.5 Lab / Micro Data Result Diagrams: 12/23/21 05:52 12/23/21 05:52 Labs: Laboratory Results - last 24 hr 12/22/21 09:10: Lactic Acid 3.1 H* 12/22/21 09:10: PT 19.4 H, INR 1.7 12/22/21 14:10: Lactic Acid 2.9 H* 12/22/21 18:50: Ammonia 31.0 12/23/21 05:52: WBC 9.8, RBC 2.86 L, Hgb 8.9 L, Hct 28.7 L, MCV 100.3 H, MCH 31.1, MCHC 31.0 L, RDW Std Deviation 55.8 H, RDW Coeff of Blas 15.0 H, Plt Count 139 L, MPV 9.8, Immature Gran % (Auto) 0.500, Neut % (Auto) 81.1 H, Lymph % (Auto) 15.4 L, [place] % (Auto) 2.8, Eos % (Auto) 0.0, Baso % (Auto) 0.2, Absolute Neuts (auto) 7.9 H, Absolute Lymphs (auto) 1.50, Nucleated RBC % 0 12/23/21 05:52: Sodium 143, Potassium 4.2, Chloride 110 H, Carbon Dioxide 32.0, Anion Gap 1 L, BUN 28 H, Creatinine 0.64, Estim Creat Clear Calc 67.98, Est GFR (MDRD) Af Amer 123, Est GFR (MDRD) Non-Af 102, BUN/Creatinine Ratio 44.1 H, Glucose 160 H, Calcium 7.2 L, Total Bilirubin 0.90, AST 71 H, ALT 38, Alkaline Phosphatase 145 H, Total Protein 6.1 L, Albumin 2.0 L, Globulin 4.1, Albumin/Globulin Ratio 0.5 L Micro: Microbiology 12/22/21 11:20 Nasal Secretion SARS-CoV-2 Antigen (Rapid) - Final Radiography Diagnostic Testing: Radiology Impression Abdomen/Pelvis CT 12/22/21 09:14 IMPRESSION: Loss of volume in the right hemithorax with multiple cystic spaces in the right lower lobe with air-fluid levels. Ascites. Findings suggestive of cirrhosis of the liver. Markedly distended gallbladder. There is thickening of the appendix and keep with appendicitis. Increased markings in the mesenteric fat suggestive of inflammatory changes. Sigmoid diverticulosis. Electronically Signed: Valeriano Hull MD at 11:03 EST , Gallbladder Ultrasound 12/22/21 09:15 IMPRESSION: Heterogeneous hepatic echotexture. Thickening gallbladder wall with distention and multiple gallstones. Electronically Signed: Valeriano Hull MD at 11:05 EST , Cholangiogram 12/22/21 14:59 IMPRESSION: Fluoroscopic guided transhepatic cholangiogram. Electronically Signed: Eldon Olivares MD at 16:55 EST , Physical Exam Const no apparent distress Resp normal respiratory effort Cardio regular rate and regular rhythm GI soft to palpation and non-tender Assessment & Plan Assessment/Plan (1) Cholecystitis: PLAN: Patient is feeling much better. She was given albumin overnight and she has been urinating. She has not tried a diet yet but she will be advanced as tolerated. She is also still on oxygen and once this can be weaned down and she tolerates a diet she will be discharged home. She will follow-up with GI and go home on lactulose. Seth Lauren MD Pager: [facility] [address] [place] [address], [address] [place] [phone] Office:
--- NOTE | 2021-12-23 09:52 | PCM.DC.SUM ---
Providers Date of Admission: 12/22/21 Primary Care Physician: Dr. Daniel Hess MD Consultations 12/22/21 14:36 Consult: Gastroenterology Routine Consulting Provider: [facility] Reason for Consult: cirrhosis, postop mgmt EMERGENT Consult: No MD Notified: Yes Date Notified: 12/22/21 Time Notified: 14:36 Method of Notification: Verbal Reason For Visit: CHOLECYSTITIS, APPENDICITIS Diagnosis Discharge Diagnosis (1) Cholecystitis: Status: Acute Code(s): K81.9 - Cholecystitis, unspecified Medications at Discharge Home Medications lactulose 20 g PO BID 10 Days #30 ea 12/23/21 oxycodone 5 - 10 mg PO Q4H PRN PRN 5 Days #20 tab 12/23/21 Hospital Course Operations cholecystecomy Procedures None Summary of Care Provided Hospital Course: Patient was admitted with epigastric pain and taken for laparoscopic cholecystectomy was found to have cirrhosis. GI was consulted. The following day she was advanced as tolerated. She was still on oxygen and was sent home on Home O2, she will follow up with pulmonology and GI Weight / BMI Weight Weight: 216 lb 14.958 oz Body Mass Index (BMI) 42.3 ABG / Lab / Microbiology Data Result Diagrams: 12/23/21 05:52 12/23/21 05:52 Laboratory: Laboratory Results - last 24 hr 12/22/21 09:10: Lactic Acid 3.1 H* 12/22/21 09:10: PT 19.4 H, INR 1.7 12/22/21 14:10: Lactic Acid 2.9 H* 12/22/21 18:50: Ammonia 31.0 12/23/21 05:52: WBC 9.8, RBC 2.86 L, Hgb 8.9 L, Hct 28.7 L, MCV 100.3 H, MCH 31.1, MCHC 31.0 L, RDW Std Deviation 55.8 H, RDW Coeff of Blas 15.0 H, Plt Count 139 L, MPV 9.8, Immature Gran % (Auto) 0.500, Neut % (Auto) 81.1 H, Lymph % (Auto) 15.4 L, [place] % (Auto) 2.8, Eos % (Auto) 0.0, Baso % (Auto) 0.2, Absolute Neuts (auto) 7.9 H, Absolute Lymphs (auto) 1.50, Nucleated RBC % 0 12/23/21 05:52: Sodium 143, Potassium 4.2, Chloride 110 H, Carbon Dioxide 32.0, Anion Gap 1 L, BUN 28 H, Creatinine 0.64, Estim Creat Clear Calc 67.98, Est GFR (MDRD) Af Amer 123, Est GFR (MDRD) Non-Af 102, BUN/Creatinine Ratio 44.1 H, Glucose 160 H, Calcium 7.2 L, Total Bilirubin 0.90, AST 71 H, ALT 38, Alkaline Phosphatase 145 H, Total Protein 6.1 L, Albumin 2.0 L, Globulin 4.1, Albumin/Globulin Ratio 0.5 L Microbiology: Microbiology 12/22/21 11:20 Nasal Secretion SARS-CoV-2 Antigen (Rapid) - Final Radiography Diagnostic Testing: Radiology Impression Abdomen/Pelvis CT 12/22/21 09:14 IMPRESSION: Loss of volume in the right hemithorax with multiple cystic spaces in the right lower lobe with air-fluid levels. Ascites. Findings suggestive of cirrhosis of the liver. Markedly distended gallbladder. There is thickening of the appendix and keep with appendicitis. Increased markings in the mesenteric fat suggestive of inflammatory changes. Sigmoid diverticulosis. Electronically Signed: Valeriano Hull MD at 11:03 EST , Gallbladder Ultrasound 12/22/21 09:15 IMPRESSION: Heterogeneous hepatic echotexture. Thickening gallbladder wall with distention and multiple gallstones. Electronically Signed: Valeriano Hull MD at 11:05 EST , Cholangiogram 12/22/21 14:59 IMPRESSION: Fluoroscopic guided transhepatic cholangiogram. Electronically Signed: Eldon Olivares MD at 16:55 EST , D/C Instructions Discharge Diet: Light diet - advance as tolerated Discharge Activity: May Not Drive (for 2-3 days or while taking narcotic pain medications.) and - (Do not drive, work heavy equipment or sign legal documents for 24 hours.) May shower in (days): 1 Lifting Restrictions: 20 lbs for 2 weeks Additional Activity Instructions: Pain medication may cause nausea. You should typically eat light foods as you take your pain medications. Pain medication may also cause constipation. If this is a problem for you, please discuss with your doctor. Call your doctor if your incision/area has: Continuous Slow Oozing, Sudden Increased Bleeding, Increased Pain/ Swelling, Increased Redness and Foul Smelling Discharge Call your doctor if you observe: Fever of 101 or Higher Suture Line Care: Avoid Pulling/Pushing and Avoid Pinching/Bending Remove Dressing in: 2 days Additional Dressing/Incision Instructions: Leave operative bandaids on for 2 days. When you remove dressing, leave Steri-Strips on until your follow-up appointment, or until the Steri-Strips fall off on their own. Additional Instructions: Follow up with Dr Estrada for cirrhosis, call for appt [phone] Please Follow Up With: Seth Lauren MD When: Please call to schedule 2 week follow up appointment. [phone] Meaningful Use Info Meaningful Use Diagnoses (Choose all that apply): None applicable Discharge Plan Admission Admit Date/Time: 12/22/21 16:06 Attending Provider: Seth Lauren Primary Care Provider: Daniel Hess Consulting Providers: Abdoul Olmstead Discharge Orders/Prescriptions Prescriptions: New oxycodone 5 mg Tablet 5 - 10 mg PO Q4H PRN PRN (Reason: Pain Score 4-10) 5 Days Qty: 20 RF: 0 lactulose 10 gram packet 20 g PO BID 10 Days Qty: 30 RF: 0 Referrals / Follow Up: Daniel Hess MD [Primary Care Provider] - Disposition Discharge Orders: Discharge Patient (Routine); Ordered 12/24/21 Ordered By: Dr. Edmundo Dean
--- NOTE | 2021-12-23 12:40 | RAD_ITS ---
STUDY: X-RAY CHEST REASON FOR EXAM: Female, 61 years old. Hypoxia TECHNIQUE: Single AP portable view of the chest. COMPARISON: None. FINDINGS: Left lung is normally expanded and free of a superimposed process. There is tracheal and mediastinal deviation to the right which may be postsurgical. The visualized right lung shows superimposed opacification suggesting a likely combination of inflammation and atelectasis. There is nonspecific pleural thickening in the right apex which also may be related to previous surgery. Heart and mediastinum cannot be accurately evaluated due to the mediastinal shift to the right and the opacified right hemithorax Normal visualized thoracic spine. Normal visualized ribs, clavicles, and shoulders. There is no demonstrated abnormality of the visualized soft tissue structures of the upper abdomen. RAD/Chest 1 View (Portable) IMPRESSION: Significant volume loss in the right hemithorax which I suspect is likely due to previous surgery. The visualized right lung shows opacification suggesting a likely combination of inflammation and atelectasis. Mediastinal shift to the right likely postsurgical Opacified right apex also likely postsurgical Left lung is free of a superimposed process Electronically Signed: Lucian Medina MD at 17:08 EST ,
--- NOTE | 2021-12-23 12:58 | CON.PCM.CC_ITS ---
Assessment & Plan Assessment/Plan (1) Hypoxia: PLAN: RECOMMENDATIONS: 1. Wean supplemental oxygen to maintain saturations at or above 90%. 2. Perform ambulatory pulse ox testing to determine home-going oxygen need. 3. Recommend dedicated chest CT on outpatient basis. 4. Follow-up in the pulmonary medicine clinic in 2 weeks. 5. Continue medical management of cirrhosis per GI recommendations. IMPRESSIONS: 1. Hypoxemia The patient underwent laparoscopic cholecystectomy yesterday, which was uncomplicated. Today, she is found to have a small supplemental oxygen requirement with exertion. Prior CT abdomen did reveal volume loss in the right hemithorax along with cystic changes in the right lower lobe and a small effusion. Her current oxygen requirement is likely secondary to the aforementioned plus some mild atelectasis following her surgery. The use of her incentive spirometer was strongly advised. Recommended the patient be ambulated in the hallway and supplemental oxygen need determined. I have provided an order to the case resource manager for home-going O2. I did recommend that the patient follow-up in the pulmonary medicine clinic within 2 weeks, at which time, I would recommend that a dedicated chest CT be obtained to fully evaluate the extent of her cystic lung disease. It is unclear as to the chronicity of these findings, as there is no prior chest imaging in our system. 2. Acute cholecystitis status post laparoscopic cholecystectomy Continue routine postoperative care per general surgery recommendations. Encourage incentive spirometer use as noted above and mobilize patient as tolerated. 3. 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 This note was generated with [employer] dictation software. It may contain incorrect words, spelling, and punctuation that were not noted in checking the note before signing. HPI Consult Data Date of Consult: 12/23/21 HPI Narrative Reason for Consultation: Respiratory insufficiency HPI Narrative: The patient is a 61-year-old female, with a history as outlined below, who presented to the emergency department on December 22 with epigastric pain, nausea and vomiting. Abdominal CT imaging demonstrated cirrhosis along with a distended gallbladder and acute appendicitis. In addition, there was e vidence of volume loss in the right hemithorax and basilar predominant cystic lung disease. The patient was evaluated by general surgery and taken to the OR where she underwent laparoscopic cholecystectomy. The patient was also seen in consultation by gastroenterology given her underlying liver disease. There was concern for HARRISON cirrhosis. Although the patient has been afebrile and hemodynamically stable, she is requiring a small amount of supplemental oxygen with exertion. The patient is primarily Scottish-speaking so her daughter provided assistance with translation. The patient is a non-smoker and was born in [facility] only to later immigrate to the [place]. She apparently carries a diagnosis of asthma and utilizes an albuterol inhaler as needed. According to her daughter, she was not previously on supplemental oxygen. They are unaware that she has ever been diagnosed with any chronic lung conditions. [facility] Medical History Bronchitis Home Medications lactulose 20 g PO BID 10 Days #30 ea 12/23/21 [Rx Last Taken Unknown] oxycodone 5 - 10 mg PO Q4H PRN PRN 5 Days #20 tab 12/23/21 [Rx Last Taken Unknown] Allergy/AdvReac Type Severity Reaction Status Date / Time No Known Allergies Allergy Verified 12/22/21 09:11 Surgical History no surgical history Social History Smoking Status: Never smoker ROS Constitutional Constitutional: Denies chills, fatigue or fever(s) Eyes Eyes: Denies blurry vision or change in vision ENT HEENT: Denies dizziness, dysphagia, epistaxis or headache(s) Cardiovascular Cardiovascular: Denies chest pain, dizziness or dyspnea Respiratory/Chest Respiratory/Chest: Denies cough or dyspnea Gastrointestinal Gastrointestinal: Reports abdominal pain, nausea and vomiting; Denies diarrhea Genitourinary Genitourinary: Denies difficulty urinating Musculoskeletal Musculoskeletal: Denies arthralgias, back pain or joint pain Integumentary Integumentary: Denies lesions, rash or skin ulcer Neurologic Neurologic: Denies abnormal gait or abnormal speech Psychiatric Psychiatric: Denies anxiety or depression Endocrine Endocrinology: Denies fatigue Hematologic/Lymphatic Hematologic/Lymphatic: Denies easy bleeding or easy bruising Physical Exam Const alert and no apparent distress Constitutional Narrative: Scottish-speaking. General Appearance: cooperative Nutritional Appearance: morbidly obese HEENT normocephalic and head/scalp atraumatic Eyes PERRL and EOMs intact bilaterally Neck supple General: trachea midline Chest inspection of chest normal Resp normal respiratory effort Auscultation: rales right Cardio regular rate and regular rhythm GI normal to inspection, nondistended, normoactive bowel sounds Extremity no clubbing, cyanosis or edema Skin no rashes or lesions noted Neuro CN's II-XII intact bilaterally, moves all extremities and no focal motor deficits Psych cooperative and affect normal Lab / Micro Data Result Diagrams: 12/23/21 05:52 12/23/21 05:52 Labs: Laboratory Results - last 24 hr 12/22/21 14:10: Lactic Acid 2.9 H* 12/22/21 18:50: Ammonia 31.0 12/23/21 05:52: WBC 9.8, RBC 2.86 L, Hgb 8.9 L, Hct 28.7 L, MCV 100.3 H, MCH 31.1, MCHC 31.0 L, RDW Std Deviation 55.8 H, RDW Coeff of Blas 15.0 H, Plt Count 139 L, MPV 9.8, Immature Gran % (Auto) 0.500, Neut % (Auto) 81.1 H, Lymph % (Auto) 15.4 L, [place] % (Auto) 2.8, Eos % (Auto) 0.0, Baso % (Auto) 0.2, Absolute Neuts (auto) 7.9 H, Absolute Lymphs (auto) 1.50, Nucleated RBC % 0 12/23/21 05:52: Sodium 143, Potassium 4.2, Chloride 110 H, Carbon Dioxide 32.0, Anion Gap 1 L, BUN 28 H, Creatinine 0.64, Estim Creat Clear Calc 67.98, Est GFR (MDRD) Af Amer 123, Est GFR (MDRD) Non-Af 102, BUN/Creatinine Ratio 44.1 H, Glucose 160 H, Calcium 7.2 L, Total Bilirubin 0.90, AST 71 H, ALT 38, Alkaline Phosphatase 145 H, Total Protein 6.1 L, Albumin 2.0 L, Globulin 4.1, Albumin/Globulin Ratio 0.5 L Micro: Microbiology 12/22/21 11:20 Nasal Secretion SARS-CoV-2 Antigen (Rapid) - Final Radiology Impression Cholangiogram 12/22/21 14:59 IMPRESSION: Fluoroscopic guided transhepatic cholangiogram. Electronically Signed: Eldon Olivares MD at 16:55 EST , Charges/Coding Visit Charges Inpatient E&M: 03052 Init Hosp L3
[2021-12-23 13:28] LABS: BNP,B-Type NATRIURETIC PEPTIDE 44.4 pg/mL (0-100)
[2021-12-23] MEDS: rifAXIMin 550 MG Tablet PO ×2 (13:52→21:20)
[2021-12-23] MEDS: Pantoprazole Sodium 20 MG Tablet PO ×2 (13:52→21:20)
[2021-12-23] MEDS: oxyCODONE 5 MG Tablet PO (13:52)
--- NOTE | 2021-12-23 14:04 | CASEMGMT ---
Social Work SW met w/pt and daughter in room, as pt does not have insurance. SW provided financial resources, including information on [employer], [employer], 211, food pantry resources, [facility], prescription assistance programs, [facility] rescources and a Medicaid application. As per daughter pt did get the financial assistance information in the ER and pt's son has it. Daughter thanked SW for the information. No further needs at this time. RAYMUNDO Lion
--- NOTE | 2021-12-23 16:31 | CASEMGMT ---
RN CM in to pt room, pt dtr present who speaks Syriac. Pt sitting up in chair with O2 off currently. Discussed local DME companies should pt need O2 upon dc. Pt dtr facetimed pt son and this RN CM explained to him with cost. [employer] chosen. Pt does not have DME in the home. Pt currently using a walker. Family requests to purchase on own if needed as pt did not need AD prior to hospitalization. Pt/dtr made aware that would like to see her in 2wks at the clinic. Deny further needs at this time.
[2021-12-24 03:44] VITALS: BP 106/56; PULSE 93; RESP 16; TEMP 36.6; O2SAT 99
--- NOTE | 2021-12-24 09:49 | PCM.PN.SRG ---
Subjective Subjective Patient's pain has improved. Is having bowel movements. Objective Data Objective Data Dressings are dry abdomen is soft Vital Signs: Vital Signs Temp Pulse Resp BP Pulse Ox 97.9 F 93 16 106/56 L 99 12/24/21 03:44 12/24/21 03:44 12/24/21 03:44 12/24/21 03:44 12/24/21 03:44 Oxygen Flow Rate (L/min) [ 2 AMBULATING with Oxygen #1] Oxygen Flow Rate (L/min) 2 Oxygen Delivery Method Nasal Cannula Weight: 216 lb 7.903 oz Body Mass Index (BMI) 42.3 Intake & Output: Intake and Output for Last 24 Hours 12/22/21 12/23/21 12/24/21 23:59 23:59 23:59 Intake Total 3150.5 / 3150.5 2041.5 / 2041.5 Output Total 200 / 200 1500 / 1700 500 / 500 Balance 2950.5 / 2950.5 541.5 / 341.5 -500 / -500 Lab / Micro Data Result Diagrams: 12/23/21 05:52 12/23/21 05:52 Labs: Laboratory Results - last 24 hr 12/23/21 05:52: B-Natriuretic Peptide 44.4 Micro: Microbiology 12/22/21 11:20 Nasal Secretion SARS-CoV-2 Antigen (Rapid) - Final Radiography Diagnostic Testing: Radiology Impression Chest X-Ray 12/23/21 12:40 IMPRESSION: Significant volume loss in the right hemithorax which I suspect is likely due to previous surgery. The visualized right lung shows opacification suggesting a likely combination of inflammation and atelectasis. Mediastinal shift to the right likely postsurgical Opacified right apex also likely postsurgical Left lung is free of a superimposed process Electronically Signed: Lucian Medina MD at 17:08 EST , Assessment & Plan Assessment/Plan (1) Appendicitis: QUALIFIERS: Appendicitis type: unspecified Qualified Code(s): K37 - Unspecified appendicitis PLAN: Okay for discharge today
[2021-12-24 09:51] VITALS: BP 99/61; PULSE 66; RESP 18; TEMP 36.7; O2SAT 99
[2021-12-24] MEDS: Pantoprazole Sodium 20 MG Tablet PO (09:53)
[2021-12-24] MEDS: Enoxaparin 40 MG/0.4 ML Syringe SC (09:53)
[2021-12-24] MEDS: rifAXIMin 550 MG Tablet PO (09:53)
[2021-12-24 10:37] VITALS: BP 99/61; PULSE 66; RESP 18; TEMP 36.6; O2SAT 99
[2021-12-24 13:08] VITALS: BP 105/54; PULSE 86; RESP 18; TEMP 36.9; O2SAT 99
[2021-12-24 14:25] VITALS: BP 105/54; PULSE 86; RESP 18; TEMP 36.9; O2SAT 99
== END 2021-12-24 16:20 ==
LOC: ED 12:19 → SDC 12:22 → AC 12:23 → MS3 14:51 → SDC 16:19 → MS3 16:19
PROVIDERS: Internal Medicine Critical Care Medicine; Internal Medicine Gastroenterology; Admitting Provider Surgery; Emergency Provider Emergency Medicine; PCP Family Medicine; Visit Provider Surgery
PROC: (CPT 47610; principal; 2021-12-22 14:10)
DX: K80.12 Calculus of gallbladder with acute and chronic cholecystitis without obstruction (principal); K74.60 Unspecified cirrhosis of liver; J43.9 Emphysema, unspecified; R09.02 Hypoxemia; K42.9 Umbilical hernia without obstruction or gangrene; K76.89 Other specified diseases of liver; R18.8 Other ascites; K57.30 Diverticulosis of large intestine without perforation or abscess without bleeding; E87.2 Acidosis
CPT/HCPCS: 47563; 00790; 36415; 71045; 74177; 74300; 76000; 76705; 80053; 82140; 83605; 83690; 83880; 84484; 85025; 85610; 87426; 88304; 93005; 96361; 96365; 96367; 96372; 96375; 96376; 97802; 99218; 99284; J7030; J7120; P9047; Q9967; A4216; G0378; J2405; J3490

== ENCOUNTER 2022-02-02 13:24 | Outpatient (CLI) | payer SELFPAY ==
[2022-02-02 13:30] VITALS: PULSE 111; PULSE 113; PULSE 116; PULSE 124; PULSE 127; PULSE 130; PULSE 96; O2SAT 90; O2SAT 91; O2SAT 92; O2SAT 93; O2SAT 96
--- NOTE | 2022-02-02 14:06 | CPS ---
Pt stopped at minute 5 due to leg pain. Pt denied any SOB with walk.
--- NOTE | 2022-02-03 13:23 | PCM.PSN.6M ---
PSN 6 Minute Walk Test 6 Minute Walk Test 6 Minute Walk Test: 6 Minute Walk Test PSN:6-Minute Walk Test Start: 02/02/22 14:02 Freq: Status: Active Protocol: [id number] Document 02/02/22 13:30 AE (Rec: 02/02/22 14:07 [facility] [id number]) 6 Minute Walk Test Date Performed 02/02/22 Time Performed 13:30 Height 5 ft 6 in Weight: 90.718 kg Weight in Pounds 200.[address]: DANIEL Moses Assistive device used: Walker Pre-test Oxygen Delivery Method Room Air Pulse Ox (%) 93 Pulse Rate (60-100 beats/min) 96 Dyspnea Zacarias Scale (0-10) 0 Exertion Zacarias Scale (6-20) 6 1st minute Oxygen Delivery Method Room Air Pulse Ox (%) 93 Pulse Rate (60-100 beats/min) 116 H 2nd minute Oxygen Delivery Method Room Air Pulse Ox (%) 93 Pulse Rate (60-100 beats/min) 111 H 3rd minute Oxygen Delivery Method Room Air Pulse Ox (%) 92 Pulse Rate (60-100 beats/min) 130 H 4th minute Oxygen Delivery Method Room Air Pulse Ox (%) 91 Pulse Rate (60-100 beats/min) 116 H 5th minute Oxygen Delivery Method Room Air Pulse Ox (%) 92 Pulse Rate (60-100 beats/min) 127 H Number of Rests Taken 1 6th minute Oxygen Delivery Method Room Air Pulse Ox (%) 90 Pulse Rate (60-100 beats/min) 124 H Dyspnea Zacarias Scale (0-10) 0 Exertion Zacarias Scale (6-20) 13 Post-test Oxygen Delivery Method Room Air Pulse Ox (%) 96 Pulse Rate (60-100 beats/min) 113 H Full Laps Walked 3 Partial Lap, Number of Tiles Walked 0 Total Distance Walked (ft) 177 02/02/22 14:06 Cardiopulmonary Services by Radha Chan Pt stopped at minute 5 due to leg pain. Pt denied any SOB with walk. Initialized on 02/02/22 14:06 - END OF NOTE Interpretation Interpretation: The patient ambulated 177 feet over the course of 6 minutes beginning on room air with the use of a walker. Pretesting oxygen saturation was noted to be 93%. With ambulation, the lance oxygen saturation was 90%. Although there was evidence of impaired walk distance, there was no significant exertional oxygen desaturation. Recommendations Recommendations: There is no indication for the use of supplemental oxygen at this time.
== END 2022-02-02 23:59 | disposition home or self-care (01) ==
PROVIDERS: PCP Family Medicine; Referring Provider Nurse Practitioner Acute Care; Visit Provider Nurse Practitioner Acute Care
DX: R09.02 Hypoxemia (principal)
CPT/HCPCS: 94618

== ENCOUNTER 2022-02-27 14:48 | Observation (INO) | payer SELFPAY ==
[2022-02-27] VITALS (8 sets, daily range): BP systolic 111–125; BP diastolic 69–79; PULSE 87–123; RESP 16–18; TEMP 36.6–36.7; O2SAT 87–100; BMI 40.3; BMI 41.1
--- NOTE | 2022-02-27 15:17 | EKG12_ITS ---
Test Reason : Blood Pressure : / mmHG Vent. Rate : 121 BPM Atrial Rate : 121 BPM P-R Int : 126 ms QRS Dur : 070 ms QT Int : 338 ms P-R-T Axes : 034 -01 043 degrees QTc Int : 479 ms Sinus tachycardia Otherwise normal ECG Confirmed by SIMBA IVAN, LAMBERT ([id number]), make up editor VERN VALDOVINOS ([id number]) on 03/01/2022 9:42:24 AM Referred By: JASON Confirmed By:LAMBERT COTTRELL MD
--- NOTE | 2022-02-27 15:18 | EDS_ITS ---
HPI History of Present Illness Chief Complaint: General Illness Informant: patient and family Onset/Context/Timing Onset: Days Context: Gradual Onset Timing: Continuous Current Severity: Mild Maximum Severity: Mild Narrative Narrative: 62-year-old female does not speak Czech and her son is educational interpreter in the room. Reportedly the patient had a laparoscopic cholecystectomy 2 to 3 weeks ago. Had a follow-up appointment today with her surgeon who was concerned that she had significant abdominal ascites and sent her to the emergency department. She states that she has had abdominal pain for about a week. She denies any nausea, vomiting or diarrhea. She does have a history of constipation and states she has been having trouble having bowel movements. Denies any melena. No fever. No dysuria. She states the pain is diffuse. Nothing specifically makes it better or worse. 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 Constipation. Review of Systems ROS Unobtainable: Denies due to encephalopathy Constitutional Constitutional ED: Denies fever(s) Eyes Eyes: Denies change in vision ENT ENT ED: Denies ear pain Cardiovascular Cardiovascular: Denies chest pain Respiratory/Chest Respiratory/Chest: Denies dyspnea Gastrointestinal Gastrointestinal: Reports abdominal pain and constipation; Denies diarrhea, melena, nausea or vomiting Genitourinary Genitourinary ED: Denies dysuria Musculoskeletal Musculoskeletal: Denies myalgias Integumentary Denies rash Neurologic Neurologic: Denies headache(s) Psychiatric Psychiatric: Denies depression Endocrine Endocrinology: Denies polyuria Allergic/Immunologic Allergic/Immunologic ED: Denies urticaria EXAM Physical Exam Narrative Exam Narrative: 62-year-old no acute distress vital signs stable afebrile. Pulse ox 9% on room air no signs hypoxia. HEENT exam unremarkable. Neck nontender no lymphadenopathy. Lungs clear to auscultation bilaterally. Heart regular rate and rhythm rate about 100. Abdomen obese with ascites. Fluid wave. No significant tenderness. No peritoneal signs. Moving all 4 extremities. 2+ pitting edema bilaterally. 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 Normal dorsi plantar flexion. Neurologically she is awake and alert. No focal motor deficits. Const Vital Signs: 02/27/22 14:49 02/27/22 15:55 02/27/22 17:47 Temperature 97.9 F Temperature Source Temporal Pulse Rate 107 H 87 Respiratory Rate 18 16 Respiratory Effort Normal Respiratory Pattern Normal Blood Pressure 111/74 114/78 Blood Pressure Mean 86 90 Pulse Ox 99 99 Oxygen Delivery Method Room Air 02/27/22 19:00 Temperature Temperature Source Pulse Rate Respiratory Rate 17 Respiratory Effort Respiratory Pattern Blood Pressure Blood Pressure Mean Pulse Ox Oxygen Delivery Method Room Air Positive well nourished, well developed and obese; Negative for cachectic, contractures or unkempt General Appearance ED: well developed and NAD; Negative for unkempt, cachectic, contractures, cyanotic or diaphoretic Nutritional Appearance: obese; Negative for cachectic HEENT Reports moist mucous membranes Negative for trauma or tenderness Eyes PERRL and EOMs intact bilaterally General Eye ED: Negative for pale conjunctiva or scleral icterus Neck no lymphadenopathy, supple and no JVD General: Negative for tenderness Chest Wall inspection of chest normal and palpation of chest normal Resp normal respiratory effort and clear to auscultation bilaterally Auscultation: Negative for rales, rhonchi or wheezes Cardio regular rate, regular rhythm, S1 normal heart sound, S2 normal heart sound and no murmurs GI normal to inspection, nondistended, normoactive bowel sounds, non-tender, non- distended and no masses GI Narrative: Distended abdomen due to ascites. No peritoneal signs. Auscultation: normoactive bowel sounds Palpation: soft; Negative for tender, guarding or rebound tenderness present Back/Spine no CVA tenderness General Back: Negative for CVA tenderness Cervical Spine: Negative for cervical spine tenderness Thoracic Spine / Upper Back: Negative for thoracic spinal tenderness Extremity Negative for normal to inspection Extremity Narrative: 2+ pitting edema bilaterally. General Extremety ED: Yes edema; Negative for tenderness General Extremity: edema Neuro oriented x3 and CN's II-XII intact bilaterally Sensorium / Orientation: alert; Negative for orientation impaired, lethargic or stuporous Motor Exam: strength 5/5 throughout Psych mental status grossly normal Appearance: Negative for unkempt Mood & Affect: Negative for depressed or tearful Skin no rashes or lesions noted and no wounds MDM MDM MDM Narrative Medical decision making narrative: 62-year-old female with nonalcoholic cirrhosi s with abdominal ascites, bilateral leg edema and abdominal pain. Labs, chest x-ray and EKG are pending. Repeat exam patient is doing well at 8:30 PM. I went over test results with her and family. They had no history of right-sided prior chest surgery, trauma or TB. So I do not know what is causing that chronic scarring of the right hemithorax. It has been seen on prior films. Due to Hoare ascites and lower extremity edema I am going to have her admitted for abdominal paracentesis. Lab Data Attestation: I reviewed the patient's lab results. Lab results narrative: CBC shows a white count of 4. H&H 10.2 and 33. Platelets 153. PT and 19 INR 1.7 PTT 39. Electrolytes unremarkable gap of 4. Normal BUN and creatinine. Liver enzymes total bilirubin is 1.5. Lipase normal 143. Urinalysis negative. Chest x-ray shows right hemithorax volume loss and with suspected be chronic scarring has been seen on a prior film. Labs: Laboratory Results - last 24 hr 02/27/22 02/27/22 02/27/22 15:25 15:25 15:25 WBC 4.4 RBC 4.09 L Hgb 10.2 L Hct 33.4 L MCV 81.7 MCH 24.9 L MCHC 30.5 L RDW Std Deviation 53.8 H RDW Coeff of Blas 18.3 H Plt Count 153 MPV 9.7 Immature Gran % (Auto) 0.200 Neut % (Auto) 45.7 L Lymph % (Auto) 37.4 [place] % (Auto) 12.8 H Eos % (Auto) 3.4 Baso % (Auto) 0.5 Absolute Neuts (auto) 2.0 Absolute Lymphs (auto) 1.63 Nucleated RBC % 0 PT 19.8 H INR 1.7 APTT 39.0 H Sodium 139 Potassium 3.5 Chloride 105 Carbon Dioxide 30.0 Anion Gap 4 L BUN 11 Creatinine 0.56 Estim Creat Clear Calc 100.01 Est GFR (MDRD) Af Amer 142 Est GFR (MDRD) Non-Af 117 BUN/Creatinine Ratio 19.6 Glucose 97 Calcium 7.4 L Total Bilirubin 1.50 H AST 34 ALT 18 Alkaline Phosphatase 119 H Total Protein 7.0 Albumin 2.2 L Globulin 4.8 H Albumin/Globulin Ratio 0.5 L Lipase 143 Urine Color Urine Clarity Urine pH Ur Specific [place] Urine Protein Urine Glucose (UA) Urine Ketones Urine Occult Blood Urine Nitrite Urine Bilirubin Urine Urobilinogen Ur Leukocyte Esterase Urine RBC Urine WBC Ur Squamous Epith Cells Urine Bacteria Urine Mucus 02/27/22 17:45 WBC RBC Hgb Hct MCV MCH MCHC RDW Std Deviation RDW Coeff of Blas Plt Count MPV Immature Gran % (Auto) Neut % (Auto) Lymph % (Auto) [place] % (Auto) Eos % (Auto) Baso % (Auto) Absolute Neuts (auto) Absolute Lymphs (auto) Nucleated RBC % PT INR APTT Sodium Potassium Chloride Carbon Dioxide Anion Gap BUN Creatinine Estim Creat Clear Calc Est GFR (MDRD) Af Amer Est GFR (MDRD) Non-Af BUN/Creatinine Ratio Glucose Calcium Total Bilirubin AST ALT Alkaline Phosphatase Total Protein Albumin Globulin Albumin/Globulin Ratio Lipase Urine Color Yellow Urine Clarity Clear Urine pH 7.0 Ur Specific [place] 1.010 Urine Protein Negative Urine Glucose (UA) Normal Urine Ketones 50 H Urine Occult Blood Negative Urine Nitrite Negative Urine Bilirubin Negative Urine Urobilinogen Normal Ur Leukocyte Esterase Negative Urine RBC 0 SEEN Urine WBC 0 SEEN Ur Squamous Epith Cells 0 SEEN Urine Bacteria 0 SEEN Urine Mucus 0 SEEN Radiography Chest X-Ray - ED: 1 View, Read by ED Physician, Read by Radiologist, Heart and Chronic Changes Diagnostic Testing: Clinical Impression(s) from Imaging Studies Chest X-Ray 02/27/22 15:32 IMPRESSION: Stable volume loss in the right hemithorax suggestive of a pleural parenchymal scarring. Old tuberculosis should be ruled out. Stable mild increased markings at the left lung base. Electronically Signed: Valeriano Hull MD at 15:47 EDT , Chest x-ray, portable, single view shows chronic right-sided volume loss and suspected scarring. Elevated right hemidiaphragm. Cannot rule out effusion. This was seen on a prior x-ray. Rhythm Strip Rhythm Strip: Sinus Rhythm Rate: 121 EKG Initial EKG: Attestation: I personally reviewed and interpreted this EKG as follows: Interpretation: Sinus Tachycardia Comments: Sinus tachycardia rate of 121. No acute signs of GA or ischemia. Discharge Plan Dx/Rx/DC Orders Clinical Impression: Cirrhosis of liver, Abdominal ascites, Peripheral edema, Chronic anemia Disposition Disposition: Acute Care Hospital [facility]
--- NOTE | 2022-02-27 15:32 | RAD_ITS ---
STUDY: X-RAY CHEST REASON FOR EXAM: Female, 62 years old. ??Effusions TECHNIQUE: Single AP portable view of the chest. COMPARISON: Comparison is made with prior study dated 12/23/2021. FINDINGS: Stable volume loss in the right hemithorax with the elevated right hemidiaphragm and shift of the heart and mediastinal structures to the right side of the chest. This is suggestive of a chronic scarring and volume loss such as a possible tuberculosis. Stable mild increased markings at the left lung base. This most likely represents scarring and possible small calcified granulomas. Correlation with a CT scan is recommended if clinically indicated. Normal size heart. Normal mediastinum and les. Normal visualized pulmonary arteries. Normal visualized aortic arch and descending thoracic aorta. Normal visualized thoracic spine. Normal visualized ribs, clavicles, and shoulders. There is no demonstrated abnormality of the visualized soft tissue structures of the upper abdomen. RAD/Chest 1 View (Portable) IMPRESSION: Stable volume loss in the right hemithorax suggestive of a pleural parenchymal scarring. Old tuberculosis should be ruled out. Stable mild increased markings at the left lung base. Electronically Signed: Valeriano Hull MD at 15:47 EDT ,
[2022-02-27 15:34] LABS: Absolute Lymphocyte Count 1.63 X10^3/uL (0.83-4.51); Basophil# 0.02 X10^3/uL; Basophil% 0.5 % (0-1); Eosinophil# 0.15 X10^3/uL; Eosinophils% 3.4 % (0-5); Hematocrit 33.4 % (37-47); Hemoglobin 10.2 g/dL (12.0-15.0); Lymphocyte # 1.63 X10^3/ul (0.83-4.51); Lymphocyte % 37.4 % (19-41); Mean Corp Hgb Conc 30.5 g/dL (32-36); Mean Corpuscular Hgb 24.9 pg (27.0-32.0); Mean Corpuscular Volume 81.7 fL (81-99); Mean Platelet Vol. 9.7 fl (6.2-12.0); Monocyte# 0.56 X10^3/uL; Monocyte% 12.8 % (0-10); NRBC Flagged by Analyzer 0 % (0-5); Neutrophil # 1.99 X10^3/uL (2.7-7.7); Neutrophil % 45.7 % (47-70); Platelet Count 153 K/mm3 (150-450); RBC Distribution Width CV 18.3 % (11.6-14.6); RBC Distribution Width SD 53.8 fl (35.1-43.9); Red Blood Count 4.09 M/mm3 (4.2-5.4); White Blood Count 4.4 K/mm3 (4.4-11.0)
[2022-02-27 15:50] LABS: ALB/GLOB Ratio 0.5 RATIO (0.9-2.4); AST(SGOT) 34 U/L (15-37); Alanine Aminotransfer ALT/SGPT 18 U/L (13-56); Albumin, Serum 2.2 g/dL (3.2-5.0); Alkaline Phosphatase 119 U/L (45-117); Anion Gap 4 (5-15); BUN 11 mg/dL (7-18); BUN/Creat Ratio 19.6 RATIO (10-20); Calcium,Total 7.4 mg/dL (8.5-10.1); Chloride 105 mmol/L (98-107); Creatinine, Serum 0.56 mg/dL (0.55-1.02); EST Glomerular Filtration Rate 117 mL/min (>60); Est Glom Filt Rate - Afr Amer 142 mL/min (>60); Estimated Creatinine Clearance 100.01 ml/min; Globulin 4.8 g/dL (2.2-4.2); Glucose 97 mg/dL (74-106); Lipase 143 U/L (73-393); Potassium 3.5 mmol/L (3.5-5.1); Sodium Level 139 mmol/L (136-145)
[2022-02-27 15:59] LABS: International Normalized Ratio 1.7; Prothrombin Time (Protime)PT. 19.8 SECONDS (11.7-14.9)
[2022-02-27] MEDS: Ondansetron 4 MG/2 ML Vial IV ×2 (17:29→20:50)
[2022-02-27] MEDS: morphine 8 MG/ML Syringe 6 MG IV (17:29)
[2022-02-27 17:56] LABS: Bacteria 0 SEEN /hpf (None Seen); Mucous, Urine 0 SEEN /hpf (<or=2+); Red Blood Cells-Urine 0 SEEN /hpf (0-5); Squamous Epithelial Cells - UA 0 SEEN /hpf (5-10); White Blood Cells 0 SEEN /hpf (0-5)
[2022-02-27 18:22] LABS: Color, Urine Yellow (Yellow); Glucose, Dipstick Normal (Normal); Ketone-Dipstick 50 mg/dl (Negative); Leukocyte Esterase-Dipstick Negative /ul (Negative); Nitrite-Dipstick Negative (Negative); Occult Blood-Urine Negative /ul (Negative); Protein-Dipstick Negative (Negative); Urine Bilirubin Dipstick Negative (Negative); Urine Clarity Clear (Clear); Urine Urobilinogen Normal (Normal)
--- NOTE | 2022-02-27 20:59 | HP.PCM_ITS ---
Documented by User: ALE Davis 02/27/22 21:15 HPI - General General Date of Admission: 02/27/22 Date of Service: 02/27/22 Chief Complaint: Abdominal ascites HPI Narrative KIERRA FOSTER, is a 62 F who presents from Dr. Lauren's office with abdominal ascites. Patient daughter at bedside translating as patient is not [place]ib[place]ian speaking. Patient's daughter reports that patient was seen by Dr. Lauren in his office today following her cholecystectomy approximately 2 [address] Lauren noted that patients abdomen was much more swollen then when he saw her for surgery and was concerned and sent her to the ER for further evaluation. Patient was seen by Dr. Estrada during her last admission but does not to appear to have following up with him outpatient. Patient will be admitted for observation and for paracentesis in the morning. 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 Home Medications lactulose 20 g PO BID 10 Days #30 ea 12/23/21 [Rx Last Taken Unknown] albuterol sulfate 90 mcg/actuation aerosol inhaler 2 puff INHALATION Q4H PRN g 01/06/22 [History Last Taken Unknown] Allergy/AdvReac Type Severity Reaction Status Date / Time No Known Allergies Allergy Verified 02/27/22 14:51 Surgical History S/P laparoscopic cholecystectomy Social History (Updated 02/27/22 @ 21:03 by ALE Davis) Smoking Status: Never smoker alcohol intake: never substance use type: does not use ROS Constitutional Constitutional: Denies anorexia, chills, fatigue, fever(s), malaise or weakness Cardiovascular Cardiovascular: Reports edema; Denies chest pain, palpitations or syncope Respiratory/Chest Respiratory/Chest: Denies cough, shortness of breath at rest, shortness of breath with exertion or wheezing Gastrointestinal Gastrointestinal: Reports abdominal pain, nausea and weight changes; Denies constipation, diarrhea or vomiting Genitourinary Genitourinary: Denies dysuria Musculoskeletal Musculoskeletal: Denies back pain, extremity pain, joint pain or joint stiffness Integumentary Integumentary: Denies dry skin or jaundice Neurologic Neurologic: Denies abnormal gait, abnormal speech, confusion or dizziness Psychiatric Psychiatric: Denies anxiety or depression Endocrine Endocrinology: Denies change in body appearance Hematologic/Lymphatic Hematologic/Lymphatic: Denies anemia Vital Signs Vital Signs Vital Signs: 02/27/22 14:49 02/27/22 15:55 02/27/22 17:47 Temperature 97.9 F Temperature Source Temporal Pulse Rate 107 H 87 Respiratory Rate 18 16 Respiratory Effort Normal Respiratory Pattern Normal Blood Pressure 111/74 114/78 Blood Pressure Mean 86 90 Pulse Ox 99 99 Oxygen Delivery Method Room Air Oxygen Flow Rate (L/min) 02/27/22 19:00 02/27/22 20:44 02/27/22 20:51 Temperature 98 F Temperature Source Temporal Pulse Rate 112 H 123 H Respiratory Rate 17 18 18 Respiratory Effort Respiratory Pattern Blood Pressure 125/69 H 118/74 Blood Pressure Mean 87 88 Pulse Ox 87 100 Oxygen Delivery Method Room Air Room Air Nasal Cannula Oxygen Flow Rate (L/min) 2 Weight Weight: 250 lb Body Mass Index (BMI) 40.3 Physical Exam Narrative Patient is Khmer-speaking and does not speak [place]ian, daughter at bedside translating. Const alert, oriented x3 and no apparent distress General Appearance: cooperative HEENT normocephalic and head/scalp atraumatic Eyes conjunctivae normal and no scleral icterus Neck no lymphadenopathy and supple General: trachea midline Resp normal respiratory effort, normal air movement and clear to auscultation bilaterally Cardio regular rate, regular rhythm, S1 normal heart sound, S2 normal heart sound and peripheral pulses 2+ throughout GI soft to palpation and non-tender Palpation: ascites Extremity normal capillary refill General Extremity: edema bilateral lower extremity Details: severe and no tenderness to palpation of joints or extremities Skin General Skin Exam: no breakdown and turgor normal Lesions: no lesions Rashes: no rashes Neuro no focal motor deficits and no sensory deficits noted Motor Exam: Negative for general weakness Psych cooperative and affect normal Appearance: appropriate Results Lab / Micro Data Result Diagrams: 02/28/22 04:15 02/28/22 04:15 Labs: Laboratory Results - last 24 hr 02/27/22 15:25: PT 19.8 H, INR 1.7, APTT 39.0 H 02/27/22 15:25: WBC 4.4, RBC 4.09 L, Hgb 10.2 L, Hct 33.4 L, MCV 81.7, MCH 24.9 L, MCHC 30.5 L, RDW Std Deviation 53.8 H, RDW Coeff of Blas 18.3 H, Plt Count 153, MPV 9.7, Immature Gran % (Auto) 0.200, Neut % (Auto) 45.7 L, Lymph % (Auto) 37.4, [place] % (Auto) 12.8 H, Eos % (Auto) 3.4, Baso % (Auto) 0.5, Absolute Neuts (auto) 2.0, Absolute Lymphs (auto) 1.63, Nucleated RBC % 0 02/27/22 15:25: Sodium 139, Potassium 3.5, Chloride 105, Carbon Dioxide 30.0, Anion Gap 4 L, BUN 11, Creatinine 0.56, Estim Creat Clear Calc 100.01, Est GFR (MDRD) Af Amer 142, Est GFR (MDRD) Non-Af 117, BUN/Creatinine Ratio 19.6, Glucose 97, Calcium 7.4 L, Total Bilirubin 1.50 H, AST 34, ALT 18, Alkaline Phosphatase 119 H, Total Protein 7.0, Albumin 2.2 L, Globulin 4.8 H, Albumin/Globulin Ratio 0.5 L, Lipase 143 02/27/22 17:45: Urine Color Yellow, Urine Clarity Clear, Urine pH 7.0, Ur Sp ecific [place] 1.010, Urine Protein Negative, Urine Glucose (UA) Normal, Urine Ketones 50 H, Urine Occult Blood Negative, Urine Nitrite Negative, Urine Bilirubin Negative, Urine Urobilinogen Normal, Ur Leukocyte Esterase Negative, Urine RBC 0 SEEN, Urine WBC 0 SEEN, Ur Squamous Epith Cells 0 SEEN, Urine Bacteria 0 SEEN, Urine Mucus 0 SEEN Rhythm Strip Rhythm Strip: Sinus Rhythm Rate: 121 Radiology Impression Chest X-Ray 02/27/22 15:32 IMPRESSION: Stable volume loss in the right hemithorax suggestive of a pleural parenchymal scarring. Old tuberculosis should be ruled out. Stable mild increased markings at the left lung base. Electronically Signed: Valeriano Hull MD at 15:47 EDT , Assessment & Plan Assessment/Plan (1) Abdominal ascites: QUALIFIERS: Ascites type: other type Qualified Code(s): R18.8 - Other ascites (2) Peripheral edema: (3) Hypoxia: PLAN: 1. Abdominal ascites -Admit to PCU -Paracentesis ordered for tomorrow morning along with corresponding labs for body fluid and serum levels. -CBC and BMP ordered for a.m. -Intake and output with daily weights -Regular diet -Patient diagnosed with cirrhosis of the liver during her inpatient stay 12/22/2021 to 12/24/2021 2. Peripheral edema -Kelvin wraps to bilateral lower extremities -Elevate bilateral lower extremities 3. Acute hypoxia -Patient initially 99% on room air however patient did become hypoxic at 87% and was placed on 2 L nasal cannula -Patient currently 100% on 2 L nasal cannula oxygen -Oxygen therapy per protocol -Likely secondary to her fluid volume overload 4. Hyperbilirubinemia -Total bilirubin currently 1.5 up from 0.9 on 12/23/2021 -CMP ordered daily 5. Asthma -Patient's lung sounds clear bilaterally, no wheezes noted -Patient takes albuterol inhaler at home, as needed albuterol nebulizer treatments ordered -Patient does not appear to be in any exacerbation at this time 6. Chronic anemia -Likely secondary to her liver disease -Patient's hemoglobin 10.2 which appears to be consistent with her baseline. DVT prophylaxis-not indicated This patient was seen by Bella Hadley NP-C under the supervision of Dr. Cook. 31 minutes spent in clinical coordination of patient's plan of care. Documented by User: Dr. 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 Home Medications lactulose 20 g PO BID 10 Days #30 ea 12/23/21 [Rx Last Taken Unknown] albuterol sulfate 90 mcg/actuation aerosol inhaler 2 puff INHALATION Q4H PRN g 01/06/22 [History Last Taken Unknown] Allergy/AdvReac Type Severity Reaction Status Date / Time No Known Allergies Allergy Verified 02/27/22 14:51 Surgical History S/P laparoscopic cholecystectomy Social History (Updated 02/27/22 @ 21:03 by Bella Hadley NP-C) Smoking Status: Never smoker alcohol intake: never substance use type: does not use Results Lab / Micro Data Result Diagrams: 02/28/22 04:15 02/28/22 04:15 Charges/Coding Addendum Addendum: Patient seen and examined agree with above assessment plan
[2022-02-27 21:35] LABS: LDH 228 U/L (84-246)
[2022-02-28] VITALS (13 sets, daily range): BP systolic 99–115; BP diastolic 57–82; PULSE 85–113; RESP 16–18; TEMP 36.1–36.7; O2SAT 91–100; BMI 41.1
--- NOTE | 2022-02-28 | FLU_PTH ---
PATIENT: KIERRA FLOWER #:[id number] LOC: [facility] U#:[id number] AGE/SX: 62/F ROOM: [facility] RE02/27/[address]: Dr. Omid Alston MD : 1960 BED: 1 DIS: 03/01/2022 SPEC #: [id number] RECD: 02/28/22 14:07 STATUS: FAHAD NGUYEN #: [id number] SERGEI: 02/28/22 00:[address]: Omid Alston DEPT: CYTOLOGY RECD BY: Mirian Woody ENTERED: 03/01/22 09:14 SP TYPE: Fluid OTHR DR: MD Dr. Daniel Flood MD Tissues: PARACENTESIS FLUID Procedures: Special Stain Group II Surgery Specimen Level IV Cytospin Fluid HEADER OPERATION: Ultrasound Guided Right Paracentesis PRE-OP DIAGNOSIS: Ascites TISSUE SUBMITTED: Right Paracentesis Fluid for Cytology DIAGNOSIS CYTOLOGY Right paracentesis fluid for cytology (cytospin and cell block): Negative for malignant cells. See comment. LEANDER:colby 03/02/2022 COMMENT Clinical correlation and appropriate follow up are necessary. CYTOLOGY STUDY Slides are reviewed. CYTOLOGY GROSS Received is 50 ml of yellow cloudy fluid labeled with the patient's name and and designated per the requisition as paracentesis. Submitted for cytology preparation including cell block. / colby 03/01/2022 TC:5 CPT: 79601, 47283
[2022-02-28] MEDS: 0.9% Saline Lock 10 ML Syringe IV ×2 (00:02→04:58)
[2022-02-28] MEDS: Ondansetron 4 MG/2 ML Vial IV (00:02)
[2022-02-28] MEDS: proCHLORPERazine 10 MG/2 ML Vial 5 MG IV (04:56)
[2022-02-28 05:39] LABS: Absolute Neutrophil Count 3.1 X10^3/uL (2.0-7.7); Basophil# 0.02 X10^3/uL; Basophil% 0.4 % (0-1); Eosinophil# 0.02 X10^3/uL; Eosinophils% 0.4 % (0-5); Hematocrit 35.5 % (37-47); Hemoglobin 10.4 g/dL (12.0-15.0); Lymphocyte % 24.9 % (19-41); Mean Corp Hgb Conc 29.3 g/dL (32-36); Mean Corpuscular Hgb 24.6 pg (27.0-32.0); Mean Corpuscular Volume 83.9 fL (81-99); Mean Platelet Vol. 9.8 fl (6.2-12.0); Monocyte# 0.43 X10^3/uL; Monocyte% 8.9 % (0-10); NRBC Flagged by Analyzer 0 % (0-5); Neutrophil # 3.12 X10^3/uL (2.7-7.7); Platelet Count 158 K/mm3 (150-450); RBC Distribution Width CV 18.2 % (11.6-14.6); RBC Distribution Width SD 55.2 fl (35.1-43.9); Red Blood Count 4.23 M/mm3 (4.2-5.4); White Blood Count 4.8 K/mm3 (4.4-11.0)
[2022-02-28 06:06] LABS: ALB/GLOB Ratio 0.5 RATIO (0.9-2.4); AST(SGOT) 35 U/L (15-37); Alanine Aminotransfer ALT/SGPT 18 U/L (13-56); Albumin, Serum 2.4 g/dL (3.2-5.0); Alkaline Phosphatase 121 U/L (45-117); Anion Gap 7 (5-15); BUN 13 mg/dL (7-18); BUN/Creat Ratio 25.2 RATIO (10-20); Calcium,Total 7.5 mg/dL (8.5-10.1); Chloride 102 mmol/L (98-107); Creatinine, Serum 0.52 mg/dL (0.55-1.02); EST Glomerular Filtration Rate 129 mL/min (>60); Est Glom Filt Rate - Afr Amer 156 mL/min (>60); Estimated Creatinine Clearance 99.35 ml/min; Globulin 5.1 g/dL (2.2-4.2); Glucose 93 mg/dL (74-106); Potassium 3.8 mmol/L (3.5-5.1); Protein, Total 7.5 g/dL (6.4-8.2); Sodium Level 137 mmol/L (136-145)
--- NOTE | 2022-02-28 08:01 | PN.HOSP_ITS ---
Subjective Subjective Patient was admitted with ascites. Diagnosed cirrhosis about 3 months ago. Never had paracentesis. History taken from patient's daughter near the bedside. Patient speaks Kinyarwanda. Denies chronic alcohol use or hepatitis. Objective Data Objective Data Vital Signs: Vital Signs Temp Pulse Resp BP Pulse Ox 97.5 F L 113 H 18 115/65 96 02/28/22 03:48 02/28/22 07:13 02/28/22 03:48 02/28/22 03:48 02/28/22 03:48 Oxygen Flow Rate (L/min) 2 Oxygen Delivery Method Nasal Cannula Weight: 239 lb 10.279 oz Body Mass Index (BMI) 41.1 Intake & Output: Intake and Output for Last 24 Hours 02/26/22 02/27/22 02/28/22 23:59 23:59 23:59 Intake Total 120 / 120 Output Total 120 / 120 Balance 0 / 0 Lab / Micro Data Result Diagrams: 02/28/22 04:15 02/28/22 04:15 Labs: Laboratory Results - last 24 hr 02/27/22 15:25: PT 19.8 H, INR 1.7, APTT 39.0 H 02/27/22 15:25: WBC 4.4, RBC 4.09 L, Hgb 10.2 L, Hct 33.4 L, MCV 81.7, MCH 24.9 L, MCHC 30.5 L, RDW Std Deviation 53.8 H, RDW Coeff of Blas 18.3 H, Plt Count 153, MPV 9.7, Immature Gran % (Auto) 0.200, Neut % (Auto) 45.7 L, Lymph % (Auto) 37.4, [place] % (Auto) 12.8 H, Eos % (Auto) 3.4, Baso % (Auto) 0.5, Absolute Neuts (auto) 2.0, Absolute Lymphs (auto) 1.63, Nucleated RBC % 0 02/27/22 15:25: Sodium 139, Potassium 3.5, Chloride 105, Carbon Dioxide 30.0, Anion Gap 4 L, BUN 11, Creatinine 0.56, Estim Creat Clear Calc 100.01, Est GFR (MDRD) Af Amer 142, Est GFR (MDRD) Non-Af 117, BUN/Creatinine Ratio 19.6, Glucose 97, Calcium 7.4 L, Total Bilirubin 1.50 H, AST 34, ALT 18, Alkaline Phosphatase 119 H, Total Protein 7.0, Albumin 2.2 L, Globulin 4.8 H, Albumin/Globulin Ratio 0.5 L, Lipase 143 02/27/22 15:25: Lactate Dehydrogenase 228 02/27/22 17:45: Urine Color Yellow, Urine Clarity Clear, Urine pH 7.0, Ur Specific [place] 1.010, Urine Protein Negative, Urine Glucose (UA) Normal, Urine Ketones 50 H, Urine Occult Blood Negative, Urine Nitrite Negative, Urine Bilirubin Negative, Urine Urobilinogen Normal, Ur Leukocyte Esterase Negative, Urine RBC 0 SEEN, Urine WBC 0 SEEN, Ur Squamous Epith Cells 0 SEEN, Urine Bacteria 0 SEEN, Urine Mucus 0 SEEN 02/28/22 04:15: Sodium 137, Potassium 3.8, Chloride 102, Carbon Dioxide 28.0, Anion Gap 7, BUN 13, Creatinine 0.52 L, Estim Creat Clear Calc 99.35, Est GFR (MDRD) Af Amer 156, Est GFR (MDRD) Non-Af 129, BUN/Creatinine Ratio 25.2 H, Glucose 93, Calcium 7.5 L, Total Bilirubin 1.60 H, AST 35, ALT 18, Alkaline Phosphatase 121 H, Total Protein 7.5, Albumin 2.4 L, Globulin 5.1 H, Alb umin/Globulin Ratio 0.5 L 02/28/22 04:15: WBC 4.8, RBC 4.23, Hgb 10.4 L, Hct 35.5 L, MCV 83.9, MCH 24.6 L, MCHC 29.3 L, RDW Std Deviation 55.2 H, RDW Coeff of Blas 18.2 H, Plt Count 158, MPV 9.8, Immature Gran % (Auto) 0.400, Neut % (Auto) 65.0, Lymph % (Auto) 24.9, [place] % (Auto) 8.9, Eos % (Auto) 0.4, Baso % (Auto) 0.4, Absolute Neuts (auto) 3.1, Absolute Lymphs (auto) 1.20, Nucleated RBC % 0 Radiography Diagnostic Testing: Radiology Impression Chest X-Ray 02/27/22 15:32 IMPRESSION: Stable volume loss in the right hemithorax suggestive of a pleural parenchymal scarring. Old tuberculosis should be ruled out. Stable mild increased markings at the left lung base. Electronically Signed: Valeriano Hull MD at 15:47 EDT , Rhythm Strip Rhythm Strip: Sinus Rhythm Rate: 121 Assessment & Plan Assessment/Plan (1) Abdominal ascites: QUALIFIERS: Ascites type: other type Qualified Code(s): R18.8 - Other ascites (2) Peripheral edema: (3) Hypoxia: PLAN: 1. 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 Patient recently diagnosed cirrhosis about 3 months ago most likely Powell cirrhosis as patient does not have history of hepatitis and alcohol. CT abdomen at that time showed cirrhosis, mild splenomegaly and distended gallbladder. Patient had lap jered by Dr. Baires and at that time was seen by GI. Hein nt was also seen in pulmonary clinic. She is chronically on 3 L of oxygen. She had ultrasound-guided paracentesis, today. 1050 mill. She never had paracentesis. Fluid chemistry and cytology pending. 2. Chronic pulmonary disease with chronic hypoxic respiratory failure: Diagnosis is unclear. Possible differential is pneumatocele with inflected bullae, portal pulmonary hypertension, right hepatic hydrothorax or pulmonary fibrosis patient had CT abdomen in November 2021 which shows multiple small cystic spaces in the right lower lobe with air-fluid level and a small right pleural effusion. Suspicion of pneumatocele/infected bullae and right hepatic hydrothorax. She was seen by Scarlett Serrano In pulmonary clinic CT chest was ordered as an outpatient. Chest x-ray on admission shows right lung volume loss, pleural-parenchymal scarring. 3. Chronic stable asthma: No exacerbation. No wheezing noted. On albuterol inhaler as needed at home. 4. Chronic normocytic normochromic anemia due to chronic liver disease/cirrhosis -Patient's hemoglobin 10.2 which appears to be consistent with her baseline. DVT prophylaxis-Lovenox 40 mils subcu daily Charges/Coding Visit Charges Inpatient E&M: 55688 Subs Hosp L2
--- NOTE | 2022-02-28 11:22 | PCM.DC ---
Discharge Instructions Follow Up Care Test Results: Test results from this visit will be discussed in further detail at your follow-up appointment, if applicable. Discharge Plan Admission Admit Date/Time: 02/27/22 20:53 Attending Provider: Omid Alston Primary Care Provider: Daniel Hess Consulting Providers: Chester Cook Instructions Patient Instructions: Paracentesis Dc Discharge Orders/Prescriptions Prescriptions: No Action albuterol sulfate 90 mcg/actuation HFA aerosol inhaler 2 puff inhalation Q4H PRN (Reason: WHEEZING, SOB) RF: 0 lactulose 10 gram packet 20 g PO BID 10 Days Qty: 30 RF: 0 Referrals / Follow Up: Daniel Hess MD [Primary Care Provider] -
--- NOTE | 2022-02-28 12:16 | CASEMGMT ---
BHARGAVI noted patient is self pay. BHARGAVI met with patient and her daughter. BHARGAVI is familiar with this family from previous visit. BHARGAVI gave family a Medicaid application last visit. Patient's daughter said they completed the application. Patient does have a primary care doctor. She has been doing okay paying for medications. Patient's daughter denies any further needs at this time. BHARGAVI is available should this change. Isaura Jara MASTER BAKER RAINA
[2022-02-28] MEDS: Lidocaine 2% (20 ml mdv) 20 ML Vial INFILT (13:50)
[2022-02-28 14:13] LABS: Cytology, Body Fluid / CSF SEE PATHOLOGY REPORT
[2022-02-28 14:51] LABS: Glucose, Body Fluid 120 mg/dL (40-70); LDH,Body Fluid 53 Units/l (Not Establ.); Protein, Body Fluid 1.8 g/dL (Not Establ.)
--- NOTE | 2022-02-28 15:23 | CHAPLAIN ---
Type of Pastoral Visit ___ Initial Visit ___ Follow-up Visit ___ On-call Visit ___ General Patient Visit ___ Spiritual Assessment ___ Family Conference ___ Bereavement ___ Rapid Response ___ Code Blue ___ Other (describe below) Pastoral Care Referral From ___ Patient ___ Family ___ Nurse ___ Physician ___ Liquified Natural Gas Specialist ___ Apparel Embroidery Digitizer ___ Other (describe below) Sacrament/Intervention ___ Active listening ___ Anointing ___ Amish ___ Bereavement ___ Communion ___ Katherine exploration ___ ___ Life review ___ Prayer ___ Reconciliation ___ Sacrament of Sick ___ Supportive presence ___ Wedding ___ Other (describe below) Pastoral Comments patient and bed are out of the room; left a calling card
[2022-02-28 15:40] LABS: Body Fluid Mononuclear WBC # 0.235 10^3/uL; Body Fluid Mononuclear WBC % 81.3 %; Body Fluid Polynuclear WBC # 0.054 10^3/uL; Body Fluid Polynuclear WBC % 18.7 %; Body Fluid Total Cells Counted 0.336 10^3/ul; White Blood Count/Body Fluid 0.289 10^3/uL
[2022-02-28 16:48] LABS: Auto B Fluid Analyzer BKGD Ct COUNTS W/IN LIMITS (W/IN LIMITS)
[2022-02-28 16:49] LABS: Appearance/Body Fluid CLEAR; Color/Body Fluid YELLOW; Red Cell Count/Body Fluid 567 /mm3; Source- Body Fluid OTHER
[2022-02-28 17:52] LABS: Lymphocytes 42 %; Mesothelial Cells 35 %; Monocytes 3 %; Neutrophil (Segs) 20 %
[2022-02-28 17:53] LABS: Body Fluid QC Type(s) BF1Q
--- NOTE | 2022-02-28 21:23 | US_ITS ---
PROCEDURE: Ultrasound guided paracentesis. DATE OF EXAMINATION: 02/28/2022. INDICATION: Female, 62 years old. Ascites. PHYSICIAN: Valeriano Hull M.D. TECHNIQUE: The risks, benefits, and alternatives to the procedure were explained to the patient. The specific risks of bleeding, infection, and damage to bowel were detailed and accepted. Witnessed informed consent was obtained. The abdomen was ultrasonographically surveyed. An appropriate pocket of fluid was identified at the right lower quadrant. The skin were cleaned and prepped in the usual sterile fashion. Using ultrasound guidance, the peritoneal cavity was accessed with a 5-Zimbabwean paracentesis needle/catheter system. The trocar was removed. A total of 1050 ml of willis-colored fluid were removed from the peritoneal cavity. A 100 mL sample of fluid was sent to the laboratory. The catheter was removed and a sterile dressing was applied. The procedure was well tolerated. US/Paracentesis with US IMPRESSION: Ultrasound guided paracentesis. Electronically Signed: Valeriano Hull MD at 14:35 EDT ,
[2022-02-28] MEDS: Ibuprofen 400 MG Tablet PO (21:45)
[2022-02-28] MEDS: Enoxaparin 40 MG/0.4 ML Syringe SC (21:48)
[2022-03-01] VITALS (7 sets, daily range): BP systolic 102–115; BP diastolic 56–62; PULSE 79–119; RESP 16–18; TEMP 36.6–36.7; O2SAT 93–99
[2022-03-01] MEDS: Ibuprofen 400 MG Tablet PO (03:09)
[2022-03-01] MEDS: Ondansetron 4 MG/2 ML Vial IV (07:18)
[2022-03-01] MEDS: 0.9% Saline Lock 10 ML Syringe IV (07:18)
--- NOTE | 2022-03-01 08:12 | PCM.DC ---
Discharge Instructions Diet Discharge Diet: 2000 mg Sodium Diet Activity Discharge Activity: May Not Drive Dressing / Incision Call your doctor if you observe: Fever of 101 or Higher, Coldness, Increased Pain, Numbness or Tingling, Change in Color, Inability to urinate, Inability to have a bowel movement, Shortness of breath, Dizziness, Fainting spells, Swelling in the ankles, Chest pain, Prolonged hiccupping, Increased palpitations (irregular heartbeat), Calf discomfort and Uncontrolled pain Follow Up Care Test Results: Test results from this visit will be discussed in further detail at your follow-up appointment, if applicable. Discharge Plan Admission Admit Date/Time: 02/27/22 20:53 Primary Reason for Your Visit: Decompensated cirrhosis probably Powell. Chronic right lung disease Attending Provider: Omid Alston Primary Care Provider: Daniel Hess Consulting Providers: Chester Cook Instructions Patient Instructions: Paracentesis Dc Discharge Orders/Prescriptions Prescriptions: New spironolactone 25 mg tablet 25 mg PO DAILY Qty: 30 RF: 1 furosemide [Lasix] 40 mg tablet 40 mg PO DAILY Qty: 30 RF: 1 Xifaxan 550 mg tablet 550 mg PO BID Qty: 60 RF: 0 Continued albuterol sulfate 90 mcg/actuation HFA aerosol inhaler 2 puff inhalation Q4H PRN (Reason: WHEEZING, SOB) RF: 0 lactulose 10 gram packet 20 g PO BID 10 Days Qty: 60 RF: 1 Referrals / Follow Up: Abdoul Olmstead DO [STAFF PHYSICIAN] - Within 2 Weeks (For work-up for chronic hypoxia, right lung volume loss and follow-up QuantiFERON test.) Terry Estarda DO [STAFF PHYSICIAN] - Within 1 Month (For decompensated Powell cirrhosis. Titrate the diuretics as needed) Daniel Hess MD [Primary Care Provider] - Within 1 Week (Advised BMP, magnesium in 1 week and follow with PCP as patient is on diuretic torsemide and spironolactone.) Disposition Disposition (needs filled in before D/C Order can be placed): Home, Self Care
[2022-03-01] MEDS: Enoxaparin 40 MG/0.4 ML Syringe SC (09:00)
--- NOTE | 2022-03-01 10:23 | DS.PCM_ITS ---
Providers Date of Admission: 02/27/22 Date of Discharge: 03/01/22 Primary Care Physician: Dr. Daniel Hess MD Reason For Visit: ABDOMINAL ASCITES Diagnosis Discharge Diagnosis (1) Abdominal ascites: Status: Acute Code(s): R18.8 - Other ascites Qualifiers: Ascites type: other type Qualified Code(s): R18.8 - Other ascites (2) Peripheral edema: Status: Acute Code(s): R60.9 - Edema, unspecified (3) Hypoxia: Status: Acute Code(s): R09.02 - Hypoxemia Medications at Discharge Home Medications albuterol sulfate 90 mcg/actuation aerosol inhaler 2 puff INHALATION Q4H PRN g 01/06/22 furosemide [Lasix] 40 mg PO DAILY #30 tab 03/01/22 lactulose 20 g PO BID 10 Days #60 ea 03/01/22 rifaximin [Xifaxan] 550 mg PO BID #60 tab 03/01/22 spironolactone 25 mg PO DAILY #30 tab 03/01/22 Hospital Course Summary of Care Provided Hospital Course: This 62-year-old female who was admitted through ED from Dr. Lauren's office for evaluation of ascites. Patient has history of decompensated cirrhosis. 1. 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 Patient recently diagnosed cirrhosis about 3 months ago most likely Powell cirrhosis as patient does not have history of hepatitis and alcohol. CT abdomen at that time showed cirrhosis, mild splenomegaly and distended gallbladder. Patient had lap jered by Dr. Lauren and at that time was seen by GI. Patient was also seen in pulmonary clinic. She is chronically on 3 L of oxygen. She had ultrasound-guided paracentesis on 02/28, 1050 mill. She never had paracentesis. Fluid protein is 1.8. As there is no fluid albumin therefore SAG cannot be calculated but seems portal hypertensive from cirrhosis. Fluid cell and differential negative for SBP. Ascitic fluid gram stain, culture and cytology are pending. The patient is started on furosemide 40 mg daily and spironolactone 25 mg daily. Follow-up with GI Friend and titrate the dose as per recurrence of ascites, electrolytes and kidney function. Advised BMP in 1 week and follow with PCP. Discussed with son who speaks Czech regarding diagnosis, management and follow-up. 2. Chronic pulmonary disease with chronic hypoxic respiratory failure: Diagnosis is unclear. Possible differential is pneumatocele with inflected bullae, portal pulmonary hypertension, right hepatic hydrothorax or pulmonary fibrosis patient had CT abdomen in November 2021 which shows multiple small cystic spaces in the right lower lobe with air-fluid level and a small right pleural effusion. Suspicion of pneumatocele/infected bullae and right hepatic hydrothorax. She was seen by Scarlett Serrano In pulmonary clinic CT chest was ordered as an outpatient. Chest x-ray on admission shows right lung volume loss, pleural-parenchymal scarring. 03/01: Discussed with sales store checker. She missed appointment of Dr. Olmstead last time. Advised to follow-up with him for full work-up of right-sided volume loss/fibrosis. QuantiFERON test pending follow with him. 3. Chronic stable asthma: No exacerbation. No wheezing noted. On albuterol inhaler as needed at home. Patient does not have history of his smoking. 4. Chronic normocytic normochromic anemia due to chronic liver disease/cirrhosis -Patient's hemoglobin 10.2 which appears to be consistent with her baseline. Repeat hemoglobin is at baseline. Platelet count 1 58,000. DVT prophylaxis-Lovenox 40 mg subcu daily. Discharge medication reconciliation done. Discharge follow-up instructions completed. Discharge process discussed with the patient and all questions were answered to patient's satisfaction. Total time spent, exact 35 minutes on discharge meds reconciliation, examination, coordination of care with nurses and ancillary staff, review of imaging and blood test and discussion with the patient on follow-up instructions. Physical Exam Narrative Seen and examined Patient overall feeling better with regards to ascites. Patient has chronic hypoxia. She [place] to [place] about 22 years ago. 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 QuantiFERON test pending. General: Alert, Oriented x3, Cooperative HEENT: Atraumatic, PERRLA, EOMI, Normocephalic Oral: No Gingival or Mucosal Lesions/ Ulcerations Neck: Supple, No JVD, Negative Carotid Bruits Lungs: Air entry severely diminished on right middle and lower and posterior lateral chest. Mediastinal shift to the right. Coarse crepitation on right side. Cardiovascular: Regular rate, Regular Rhythm, Normal S1, Normal S2, No murmurs Abdomen: Soft, mild to moderate ascites. No tenderness. Bowel Sounds Present : No renal angle tenderness. No suprapubic tenderness. Extremities: Mild bilateral peripheral ankle pitting edema, Capillary Refill Less than 3 Seconds Skin: No rashes, No breakdown Musculoskeletal: No Tenderness to Palpation of Joints or Extremities Neurological: Cranial nerves II-XII grossly intact, DTR 2+/4 and Symmetrical, Neuro grossly intact Psych/Mental Status: Normal Affect, Appropriate Weight / BMI Weight Weight: 238 lb 8.642 oz Body Mass Index (BMI) 41.1 ABG / Lab / Microbiology Data Result Diagrams: 02/28/22 04:15 02/28/22 04:15 Laboratory: Laboratory Results - last 24 hr 02/28/22 13:00: Fluid Glucose 120 H, Fluid Total Protein 1.8, Fluid LDH 53 02/28/22 13:00: Fluid Source OTHER, Fluid Color YELLOW, Fluid Appearance CLEAR, Fluid WBC 0.289, Fluid RBC 567, Fluid Tot Cell Count 0.336 H, Fld Polynuclear WBCs # 0.054, Fld Polynuclear WBCs % 18.7, Fluid Mononuclear WBCs 0.235, Fld Mononuclear WBCs % 81.3, Fluid Neutrophils 20, Fluid Lymphocytes 42, Fluid Monocytes 3, Fld Mesothelial Cells 35, Fl Pathologist Comment May follow, Fluid Comment 2 Not Reportable Radiography Diagnostic Testing: Radiology Impression Paracentesis Ultrasound 02/28/22 21:23 IMPRESSION: Ultrasound guided paracentesis. Electronically Signed: Valeriano Hull MD at 14:35 EDT , D/C Instructions Discharge Diet: 2000 mg Sodium Diet Call your doctor if you observe: Fever of 101 or Higher, Coldness, Increased Pain, Numbness or Tingling, Change in Color, Inability to urinate, Inability to have a bowel movement, Shortness of breath, Dizziness, Fainting spells, Swelling in the ankles, Chest pain, Prolonged hiccupping, Increased palpitations (irregular heartbeat), Calf discomfort and Uncontrolled pain Meaningful Use Info Meaningful Use Diagnoses (Choose all that apply): None applicable Discharge Plan Admission Admit Date/Time: 02/27/22 20:53 Primary Reason for Your Visit: Decompensated cirrhosis probably Powell. Chronic right lung disease Attending Provider: Omid Alston Primary Care Provider: Daniel Hess Consulting Providers: Chester Cook Instructions Patient Instructions: Paracentesis Dc Discharge Orders/Prescriptions Prescriptions: New spironolactone 25 mg tablet 25 mg PO DAILY Qty: 30 RF: 1 furosemide [Lasix] 40 mg tablet 40 mg PO DAILY Qty: 30 RF: 1 Xifaxan 550 mg tablet 550 mg PO BID Qty: 60 RF: 0 Continued albuterol sulfate 90 mcg/actuation HFA aerosol inhaler 2 puff inhalation Q4H PRN (Reason: WHEEZING, SOB) RF: 0 lactulose 10 gram packet 20 g PO BID 10 Days Qty: 60 RF: 1 Referrals / Follow Up: Abdoul Olmstead DO [STAFF PHYSICIAN] - Within 2 Weeks (For work-up for chronic hypoxia, right lung volume loss and follow-up QuantiFERON test.) FriendTerry DO [STAFF PHYSICIAN] - Within 1 Month (For decompensated Powell cirrhosis. Titrate the diuretics as needed) Daniel Hess MD [Primary Care Provider] - Within 1 Week (Advised BMP, magnesium in 1 week and follow with PCP as patient is on diuretic torsemide and spironolactone.) Disposition Disposition (needs filled in before D/C Order can be placed): Home, Self Care
--- NOTE | 2022-03-01 10:51 | CASEMGMT ---
Pt is on home oxygen 3L continuous and has currently been on 2L while admitted. Pt has already been provided [facility] lloyd/resources. Pt to f/u with Dr. Olmstead and Dr. Estrada at d/c for further OP testing/results. Ignacio SCRUGGS CM
--- NOTE | 2022-03-01 12:14 | PHA.DC.MR ---
Pharmacy Service has performed discharge medication reconciliation for this patient. The patient's discharge medication list was reviewed for discrepancies and discrepancies were resolved. Home Medications albuterol sulfate 90 mcg/actuation aerosol inhaler 2 puff INHALATION Q4H PRN g 01/06/22 furosemide [Lasix] 40 mg PO DAILY #30 tab 03/01/22 lactulose 20 g PO BID 10 Days #60 ea 03/01/22 rifaximin [Xifaxan] 550 mg PO BID #60 tab 03/01/22 spironolactone 25 mg PO DAILY #30 tab 03/01/22
[2022-03-02 10:20] LABS: Pathologist Comment/Body Fluid Reviewed
[2022-03-03 15:09] LABS: QNTFERON TB Mitogen Value > 10.00 IU/mL (.); QNTFERON TB Nil Value 2.91 IU/mL (.); QNTFERON TB1+ Ag Value 6.88 IU/mL (.); QNTFERON TB2+ Ag Value 8.04 IU/mL (.)
[2022-03-04 10:22] LABS: QNTIFERON TB Positive Criteria Positive (Negative)
== END 2022-03-01 10:22 | disposition home or self-care (01) ==
LOC: ED 20:34 → PCU 21:09
PROVIDERS: Nurse Practitioner Family; Admitting Provider Family Medicine; Emergency Provider Emergency Medicine; PCP Family Medicine; Visit Provider Internal Medicine
DX: R18.8 Other ascites (principal); K74.60 Unspecified cirrhosis of liver; J43.9 Emphysema, unspecified; J96.11 Chronic respiratory failure with hypoxia; D64.9 Anemia, unspecified; R60.0 Localized edema; K75.81 Nonalcoholic steatohepatitis (NASH)
CPT/HCPCS: 36415; 49083; 71045; 80053; 81001; 82945; 83615; 83690; 84157; 85025; 85610; 85730; 86480; 87070; 87075; 87205; 88108; 88305; 88313; 89050; 93005; 96372; 96374; 96375; 96376; 97802; 99218; 99251; 99285; A4216; G0378; G0463; J2405

== ENCOUNTER 2022-03-02 06:52 | Emergency (ER) | payer SELFPAY ==
[2022-03-02 06:58] VITALS: BP 91/65; PULSE 102; RESP 30; TEMP 36.5; O2SAT 67; BMI 41.6
[2022-03-02 07:05] VITALS: O2SAT 97
--- NOTE | 2022-03-02 07:41 | CT_ITS ---
STUDY: CT BRAIN WITHOUT CONTRAST REASON FOR EXAM: Female, 62 years old. Headache RADIATION DOSAGE (If Supplied By Facility): CTDIvol = ( 47.06 ) mGy, DLP = ( 837.39 ) mGycm TECHNIQUE: Transaxial CT imaging of the brain was performed without administration of intravenous contrast material. Individualized dose optimization techniques were used for this CT. COMPARISON: No relevant priors. FINDINGS: Normal soft tissue structures. Normal calvarium. Normal size ventricles and extra-axial spaces for the patient''s age. Normal white matter tracts of the cerebral hemispheres. Normal basal ganglia and thalami. Normal brainstem. Normal cerebellum. There is no intracranial hemorrhage. There are no findings of an acute ischemic infarction. Normal visualized paranasal sinuses. CT/Brain/Head without Contrast IMPRESSION: Normal unenhanced CT scan of the brain. Electronically Signed: Valeriano Hull MD at 8:31 EDT ,
--- NOTE | 2022-03-02 07:42 | EKG12_ITS ---
Test Reason : SOB Blood Pressure : / mmHG Vent. Rate : 094 BPM Atrial Rate : 094 BPM P-R Int : 138 ms QRS Dur : 076 ms QT Int : 388 ms P-R-T Axes : -01 009 032 degrees QTc Int : 485 ms Normal sinus rhythm Prolonged QT Abnormal ECG Confirmed by SIMBA IVAN, LAMBERT ([id number]), supervising editor news reel VERN VALDOVINOS ([id number]) on 03/06/2022 1:32:25 PM Referred By: PRIMITIVO Confirmed By:LAMBERT COTTRELL MD
--- NOTE | 2022-03-02 07:44 | EX.ED.VIS.HA ---
HPI History of Present Illness Chief Complaint: Headache Narrative Narrative: Patient with history of Powell as well and recently admitted for ascites and did have paracentesis and discharged home yesterday. She reports that she had a headache in the hospital and was giving something for this. She does not have this at home. She reports a headache today on arrival. She denies history of migraine headaches in the past. She denies any head trauma. This is not acute onset in nature. Patient states her headache pain is about an 8 of 10. Patient nonanxious speaking and her family does interpret. Patient found to be hypoxic in the emergency room with a pulse ox of 67%. After being placed on oxygen she states her headache feels improved. She was previously on oxygen in the hospital but was discharged home without home O2. She states she felt hot this morning but no known history of fever as an outpatient. She is not have any chest pain but does state that she has felt mildly more short of breath. She feels improved after being placed on oxygen. She states her abdomen is large but is about the same as it was yesterday. No increase in pain. She does state that she has had some small fluid leak from the paracentesis site. No redness or erythema surrounding the site. 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 Home Medications albuterol sulfate 90 mcg/actuation aerosol inhaler 2 puff INHALATION Q4H PRN g 01/06/22 [History Last Taken Unknown] furosemide [Lasix] 40 mg PO DAILY #30 tab 03/01/22 [Rx Last Taken Unknown] lactulose 20 g PO BID 10 Days #60 ea 03/01/22 [Rx Last Taken Unknown] rifaximin [Xifaxan] 550 mg PO BID #60 tab 03/01/22 [Rx Last Taken Unknown] spironolactone 25 mg PO DAILY #30 tab 03/01/22 [Rx Last Taken Unknown] Allergy/AdvReac Type Severity Reaction Status Date / Time No Known Allergies Allergy Verified 02/27/22 14:51 Surgical History S/P laparoscopic cholecystectomy Social History Smoking Status: Never smoker alcohol intake: never substance use type: does not use ROS ROS ED Constitutional Constitutional ED: Denies chills or fever(s) Eyes Eyes: Denies blurry vision or diplopia ENT ENT ED: Denies rhinorrhea or sore throat Cardiovascular Cardiovascular: Denies chest pain Respiratory/Chest Respiratory/Chest: Reports dyspnea Gastrointestinal Gastrointestinal: Reports abdominal pain and other Details: Drainage from paracentesis site ; Denies diarrhea or vomiting Genitourinary Genitourinary ED: Denies dysuria or hematuria Musculoskeletal Musculoskeletal: Denies arthralgias or myalgias Integumentary Denies rash Neurologic Neurologic: Reports headache(s); Denies paresthesias or weakness Psychiatric Psychiatric: Denies anxiety or depression EXAM Physical Exam Const Vital Signs: 03/02/22 06:58 03/02/22 07:05 03/02/22 08:12 Temperature 97.7 F L Temperature Source Temporal Pulse Rate 102 H Respiratory Rate 30 H Respiratory Pattern Normal Blood Pressure 91/65 Blood Pressure Mean 73 Pulse Ox 67 97 Oxygen Delivery Method Room Air Nasal Cannula Oxygen Flow Rate (L/min) 2 03/02/22 08:23 03/02/22 09:05 03/02/22 12:15 Temperature Temperature Source Pulse Rate 94 94 Respiratory Rate 17 24 H Respiratory Pattern Blood Pressure 103/64 112/71 Blood Pressure Mean 77 84 Pulse Ox 97 100 98 Oxygen Delivery Method Nasal Cannula Nasal Cannula Nasal Cannula Oxygen Flow Rate (L/min) 2 2 2 Positive obese General Appearance ED: NAD; Negative for pallor Nutritional Appearance: obese HEENT Reports normocephalic and moist mucous membranes atraumatic Eyes EOMs intact bilaterally General Eye ED: Negative for pale conjunctiva or scleral icterus Resp normal respiratory effort Auscultation: diminished lung sounds right and left GI GI Narrative: Paracentesis site currently clean dry and intact. Abdomen nonperitoneal. Palpation: soft Back/Spine no CVA tenderness Neuro CN's II-XII intact bilaterally and no sensory deficits noted Sensorium / Orientation: awake and alert Psych mental status grossly normal Skin General Skin Exam: Negative for jaundice or pallor Lesions: no lesions Rashes: no rashes MDM MDM MDM Narrative Medical decision making narrative: Patient presenting with hypoxia. She also has complaint of headache which is improving with her oxygen therapy. EKG shows a normal sinus rhythm ventricular rate of 94 bpm without sign of ischemic change. QTc 485. CBC shows no leukocytosis. Hemoglobin 9.5 and your baseline. Renal function and electrolytes unremarkable. High-sensitivity troponin initially 97 and delta troponin is 83. This is likely due to the hypoxia experienced by the patient. CT of the brain was obtained because the patient has new onset headache and she was treated with Reglan and Benadryl. CT of the brain is negative for acute intracranial findings. Her headache is improved and she is not eating. Patient on 2 L of oxygen via nasal cannula and is stable. Chest x-ray my interpretation shows no acute cardiopulmonary findings although there are chronic changes. D-dimer is elevated at 13.49. Given this I did obtain a CTA which was interpreted by the radiologist as Volume loss in the right hemithorax with shift of the heart and mediastinal structures to the right side. Multiple cystic spaces suggestive of bronchiectasis and possible pneumatoceles with the infiltration and/or consolidative atelectasis at the right lung base. Small left pleural effusion. Increased markings with volume loss in the left upper lobe. 1.2 cm x 1.8cm nodule in the left upper lobe. Given that she was hypoxic I spoke with Dr. Olmstead who stated these are all chronic findings known to him. He states that she was lost to follow-up in his office at her last office visit. Prior to that she did a 6-minute walk and refused to walk more than 177 feet. He states that she is medically noncompliant. He recommended trying to get the patient oxygen for home which after speaking with social work I was able to achieve. All findings were discussed with the patient and specially the need to follow-up with pulmonology given her respiratory issues. Her ammonia was slightly elevated today and she will need to continue her lactulose. This was discussed with her family who is interpreting. Social work was able to get some medical assistance due to the patient's prescriptions being too expensive. Patient discharged home in stable condition. Impression: 1. Hypoxic respiratory failure 2. Dyspnea 3. Elevated D-dimer 4. Chronic anemia 5. Elevated ammonia 6. Left pleural effusion 7. 1.2 cm x 1.8 cm left upper lobe nodule 8. Pneumatoceles of the right lung base 9. Medical noncompliance Lab Data Attestation: I reviewed the patient's lab results. Labs: Laboratory Results - last 24 hr 05/03/1903/02/22 03/02/22 07:55 07:55 07:55 WBC 4.0 L RBC 3.79 L Hgb 9.5 L Hct 32.1 L MCV 84.7 MCH 25.1 L MCHC 29.6 L RDW Std Deviation 55.2 H RDW Coeff of Blas 18.0 H Plt Count 130 L MPV 11.7 D-Dimer Quant (PE/DVT) 13.49 H* Sodium Potassium Chloride Carbon Dioxide Anion Gap BUN Creatinine Estim Creat Clear Calc Est GFR (MDRD) Af Amer Est GFR (MDRD) Non-Af BUN/Creatinine Ratio Glucose Calcium Total Bilirubin Direct Bilirubin AST ALT Alkaline Phosphatase Ammonia 33.0 H Troponin I High Sens B-Natriuretic Peptide Total Protein Albumin Globulin Lipase 03/02/22 03/02/22 03/02/22 07:55 08:05 10:30 WBC RBC Hgb Hct MCV MCH MCHC RDW Std Deviation RDW Coeff of Blas Plt Count MPV D-Dimer Quant (PE/DVT) Sodium 141 Potassium 4.0 Chloride 105 Carbon Dioxide 33.0 H Anion Gap 3 L BUN 14 Creatinine 0.52 L Estim Creat Clear Calc 99.35 Est GFR (MDRD) Af Amer 155 Est GFR (MDRD) Non-Af 128 BUN/Creatinine Ratio 27.0 H Glucose 97 Calcium 7.3 L Total Bilirubin 1.20 H Direct Bilirubin 0.61 H AST 31 ALT 16 Alkaline Phosphatase 104 Ammonia Troponin I High Sens 97 H 83 H B-Natriuretic Peptide 330.8 H Total Protein 6.6 Albumin 2.0 L Globulin 4.6 H Lipase 107 Radiography Diagnostic Testing: Clinical Impression(s) from Imaging Studies Brain CT 03/02/22 07:41 IMPRESSION: Normal unenhanced CT scan of the brain. Electronically Signed: Valeriano Hull MD at 8:31 EDT , Chest CTA 03/02/22 08:31 IMPRESSION: Volume loss in the right hemithorax with shift of the heart and mediastinal structures to the right side. Multiple cystic spaces suggestive of bronchiectasis and possible pneumatoceles with the infiltration and/or consolidative atelectasis at the right lung base. Small left pleural effusion. Increased markings with volume loss in the left upper lobe. 1.2 cm x 1.8 cm nodule in the left upper lobe. Electronically Signed: Valeriano Hull MD at 9:35 EDT , Chest X-Ray 03/02/22 08:41 IMPRESSION: Stable examination. Electronically Signed: Valeriano Hull MD at 9:30 EDT , Discharge Plan Triage Chief Complaint: Headache ED Provider: Zackary Gudino Dx/Rx/DC Orders Instructions: Self-Care for Headaches, ED Dyspnea Prescriptions: No Action albuterol sulfate 90 mcg/actuation HFA aerosol inhaler 2 puff inhalation Q4H PRN (Reason: WHEEZING, SOB) RF: 0 spironolactone 25 mg tablet 25 mg PO DAILY Qty: 30 RF: 1 furosemide [Lasix] 40 mg tablet 40 mg PO DAILY Qty: 30 RF: 1 Xifaxan 550 mg tablet 550 mg PO BID Qty: 60 RF: 0 lactulose 10 gram packet 20 g PO BID 10 Days Qty: 60 RF: 1 Primary Care Provider: Daniel Hess Referrals: Daniel Hess MD [Primary Care Provider] - Disposition Disposition: Home, Self Care
[2022-03-02 08:03] LABS: Hematocrit 32.1 % (37-47); Hemoglobin 9.5 g/dL (12.0-15.0); Mean Corp Hgb Conc 29.6 g/dL (32-36); Mean Corpuscular Hgb 25.1 pg (27.0-32.0); Mean Corpuscular Volume 84.7 fL (81-99); Mean Platelet Vol. 11.7 fl (6.2-12.0); Platelet Count 130 K/mm3 (150-450); RBC Distribution Width SD 55.2 fl (35.1-43.9); Red Blood Count 3.79 M/mm3 (4.2-5.4)
[2022-03-02] MEDS: DiphenhydrAMINE 50 MG/ML Syringe 25 MG IV (08:06)
[2022-03-02] MEDS: Metoclopramide 10 MG/2 ML Vial IV (08:06)
[2022-03-02 08:23] VITALS: O2SAT 97
[2022-03-02 08:25] LABS: D-Dimer Quantitative (DVT/PE) 13.49 FEU/ug/m (0.27-0.49)
--- NOTE | 2022-03-02 08:31 | CT_ITS ---
STUDY: CTA CHEST REASON FOR EXAM: Female, 62 years old. Hypoxic respiratory failure RADIATION DOSAGE (If Supplied By Facility): CTDIvol = ( 13.75 ) mGy, DLP = ( 502.65 ) mGycm TECHNIQUE: The examination was performed with the intravenous administration of IV 100mL Isovue-370. Post-processing of the angiographic images was performed, with multiplanar reformation and 3D reconstruction. Individualized dose optimization techniques were used for this CT. COMPARISON: Comparison is made with prior chest radiograph done earlier today. FINDINGS: Normal enhancement of the main pulmonary artery and right and left pulmonary arteries. Normal enhancement of the bilateral peripheral pulmonary arteries. There is no demonstrated pulmonary embolism. Normal thoracic aorta and visualized great vessels. There is no demonstrated aortic dissection. Normal heart and pericardium. Normal mediastinum. Normal hilar regions. Normal visualized trachea and bronchi. Mild loss in the right hemithorax with shift of the heart and mediastinal structures to the right side. There is evidence of bronchiectasis and consolidation/atelectasis involving the right upper lobe. Cystic changes are seen. There is evidence of bronchiectasis and cystic changes with a consolidation in the right lower lobe. Increased markings in the apical aspect of the left upper lobe with volume loss. There is a 1.8 cm x 1.2 cm nodule in the left upper lobe. Small left pleural effusion. Atelectasis and/or scarring at the left lung base. Normal chest wall structures. Normal osseous structures. Ascites is seen in the upper abdomen. CT/CTA Chest W/WO Contrast IMPRESSION: Volume loss in the right hemithorax with shift of the heart and mediastinal structures to the right side. Multiple cystic spaces suggestive of bronchiectasis and possible pneumatoceles with the infiltration and/or consolidative atelectasis at the right lung base. Small left pleural effusion. Increased markings with volume loss in the left upper lobe. 1.2 cm x 1.8 cm nodule in the left upper lobe. Electronically Signed: Valeriano Hull MD at 9:35 EDT ,
--- NOTE | 2022-03-02 08:41 | RAD_ITS ---
STUDY: X-RAY CHEST REASON FOR EXAM: Female, 62 years old. Hypoxia. Headaches. TECHNIQUE: Single AP portable view of the chest. COMPARISON: Comparison is made with prior study of 02/27/2022. FINDINGS: EKG electrodes are seen. 16 again, there is volume loss in the right hemithorax with shift of the heart and mediastinal structures towards the right side. Stable chronic infiltrate/scarring in the right hemithorax suggestive of a post tuberculosis infection. Stable mild increased markings at the left lung base. There is no demonstrated pleural abnormality. Normal size heart. Normal mediastinum and les. Normal visualized pulmonary arteries. Normal visualized aortic arch and descending thoracic aorta. Normal visualized thoracic spine. Normal visualized ribs, clavicles, and shoulders. There is no demonstrated abnormality of the visualized soft tissue structures of the upper abdomen. RAD/Chest 1 View (Portable) IMPRESSION: Stable examination. Electronically Signed: Valeriano Hull MD at 9:30 EDT ,
[2022-03-02 08:58] LABS: AST(SGOT) 31 U/L (15-37); Alanine Aminotransfer ALT/SGPT 16 U/L (13-56); Alkaline Phosphatase 104 U/L (45-117); Anion Gap 3 (5-15); BUN 14 mg/dL (7-18); Bilirubin, Direct 0.61 mg/dL (0.00-0.30); Calcium,Total 7.3 mg/dL (8.5-10.1); Chloride 105 mmol/L (98-107); Creatinine, Serum 0.52 mg/dL (0.55-1.02); EST Glomerular Filtration Rate 128 mL/min (>60); Est Glom Filt Rate - Afr Amer 155 mL/min (>60); Estimated Creatinine Clearance 99.35 ml/min; Globulin 4.6 g/dL (2.2-4.2); Glucose 97 mg/dL (74-106); Lipase 107 U/L (73-393); Protein, Total 6.6 g/dL (6.4-8.2); Sodium Level 141 mmol/L (136-145); Troponin-I HS 97 pg/mL (3.0-54.0)
[2022-03-02 09:05] VITALS: BP 103/64; PULSE 94; RESP 17; O2SAT 100
[2022-03-02 10:44] LABS: BNP,B-Type NATRIURETIC PEPTIDE 330.8 pg/mL (0-100)
[2022-03-02 11:05] LABS: Troponin-I HS 83 pg/mL (3.0-54.0)
--- NOTE | 2022-03-02 11:55 | CM.ED ---
BHARGAVI Note Referral Source: MD Referral Reason: Home Oxygen SW was advised that patient will need 2 L of oxygen at home at discharge. BHARGAVI went to see patient. She is alseep. SW called [facility] and spoke to Dominic. The cost is $270 month for home oxygen and the cost of concentrator only is $200-225. He is not aware of any indigient or sliding fee scale. BHARGAVI called [facility]. SW inquired about home oxygen and SW was advised that [facility] bills montly and the cost of conentratio ri $115 and portability is $30 plus tanks $22. BHARGAVI called cherry's son All and reviewed that patient will need home oxygen at discharge. SW reviewed prices of [employer] vs [employer] and All said that they want [employer] and he said that he understand he will need to pay on credit card or checking account. He is coming back to the ED. BHARGAVI updated patient's RN. Lela CHEATHAM
[2022-03-02 12:15] VITALS: BP 112/71; PULSE 94; RESP 24; O2SAT 98
--- NOTE | 2022-03-02 12:16 | CM.ED ---
[place] [facility] [facility] [place] for patient but had turned the DME in on 01/12/2022. In order to establish home oxygen again for patient, and through their [place] [facility], BHARGAVI faxed the order, Face to Face and quickscript [place] [facility]. BHARGAVI provided patient with medicaid application. Lela CHEATHAM
--- NOTE | 2022-03-02 14:08 | CM.ED ---
Addendum entered by Lela Faith 03/02/22 14:24: RAFAEL sent [employer] information about patient's home oxygen order and demographic information. Lela CHEATHAM Original Note: RAFAEL Note RAFAEL called [employer] and was advised that they did not get the home oxygen referral packet. RAFAEL faxed referral to [facility]. Of note SW received confirmation for both packets that they were received by [employer]. RAFAEL called Дмитрий at [facility] and inquired about home oxygen. Rafael explained to Дмитрий that patient has no insurance. RAFAEL advised patient had returned the previous home oxygen on 01/12/22. RAFAEL asked Дмитрий to call the son and verify that financially the patient is ok with being discharged on home oxygen. Дмитрий agreed to call son. RAFAEL provided patient with medicaid application. RAFAEL received update from Дмитрий. He said that he spoke to son and the patient is fine to leave with home oxygen as the financial piece has been completed. RAFAEL met with patient and her son. RAFAEL reviewed financial packet with the son. Son indicated that they would like to apply for [place] medicaid but the patient has no SSN. RAFAEL asked if patient could receive a SSN and son said no due to her immigration status. RAFAEL encouraged patients son to apply for medicaid and complete as much information as possible. Son discussed concerns regarding cost of the medication. RAFAEL provided son with list of prescription resources and prescription cards. RAFAEL also encouraged him to call the casemanager at [facility] about financial assistance. MD was updated. Plan: Home with Home oxygen Lela CHEATHAM
--- NOTE | 2022-03-07 12:55 | CM.ED ---
ER RNCM DC F/u Call: per Fire Patroller to call and f/u with this patient as patient was Dc's with home O2-[employer]. Private pay. H/o HARRISON with paracentesis. Luxembourgish Speaking. Called patient's son All, answered and this jingle writer introduced self and role. All states busy at work and provided sister Estefania's number [phone]. States that patient has home O2 and uses 2-2.5LPM. Has been doing okay and has a f/u appt with pcp this . Unsure/unable to answer if patient has a Pulse Ox to check O2 sat but states told green is good and red is not good. Called patient's daughter Stacy per son request. no answer and VM did not identify correct person/number and therefore no VM left by this jingle writer at this time. Herve Vasquez RNCM
== END 2022-03-02 14:26 | disposition home or self-care (01) ==
PROVIDERS: Emergency Provider Student in an Organized Health Care Education/Training Program; PCP Family Medicine; Visit Provider Student in an Organized Health Care Education/Training Program
DX: J96.91 Respiratory failure, unspecified with hypoxia (principal); K74.60 Unspecified cirrhosis of liver; J43.9 Emphysema, unspecified; E72.20 Disorder of urea cycle metabolism, unspecified; J90 Pleural effusion, not elsewhere classified; Z91.19 Patient's noncompliance with other medical treatment and regimen; D64.9 Anemia, unspecified; R51.9 Headache, unspecified; K75.81 Nonalcoholic steatohepatitis (NASH); R06.00 Dyspnea, unspecified; J98.4 Other disorders of lung; Z79.899 Other long term (current) drug therapy
CPT/HCPCS: 36415; 70450; 71045; 71275; 80048; 80076; 82140; 83690; 83880; 84484; 85027; 85379; 93005; 96374; 96375; 99283; Q9967; A4216

== ENCOUNTER 2022-03-14 13:08 | Day surgery (SDC) | payer SELFPAY ==
[2022-03-14 13:43] VITALS: BP 107/68; PULSE 106; RESP 16; TEMP 36.7; O2SAT 96; BMI 39.9
[2022-03-14] MEDS: Lactated Ringers 1,000 ML 15 ML IV (13:48)
[2022-03-14 14:01] LABS: Troponin-I HS 7 pg/mL (3.0-54.0)
--- NOTE | 2022-03-14 14:09 | HP.PCM_ITS ---
History and Physical Date of Admission: 03/14/22 MADHAVI FOSTER, is a 62 F who presents to the office today for Hospital follow up. Madhavi established with this clinic through hospitalization with [facility]. She presented to [facility] ED 12.22.21 with epigastric and RUQ abdominal pain without exacerbating or alleviating factors. Admitted to treat acute appendicitis and acute cholecystitis. Incidentally, it was found that she has cirrhosis of the liver during ED workup. Underwent cholecystectomy 12.22.21. Gastroenterology was consulted 12.22.21 for new diagnosis of HARRISON cirrhosis with ascites. MELD at consultation with noted decompensation r/t acute cholecystitis. She was started on Xifaxan 550mg BID for hepatic encephalopathy with lactulose 20mg QD, ursodiol 550mg Lasix 20mg and Aldactone 12.5mg QD. She was discharged 12.24.21. CT abd/pel 12.22.21 found decreased liver size with cirrhotic changes; perihepatic fluid; splenomegaly; gallbladder distention; diffuse thickening of gastric wall; colonic diveritula; increased marking within mesenteric fat; shift of heart and mediastinal structures toward right hemithorax; small right pleural effusion. US gallbladder 12.22.21 found liver measurement 14.1 with heterogeneous echogenicity of the liver without mass or lesion; gallbladder markedly distended with thickened wall and positive sonographic Mock?s sign and pericholecystic fluid and gallstones. [facility] ED presentation 02.27.22 for increasing abdominal ascites following laparoscopic cholecystectomy 2-3 weeks prior. Paracentesis performed with 1050mL fluid removed; cytology without abnormal finding. When she gets the paracentesis she feels much better. Denies any difficulties at this time. Will occasionally get some pain on the left side of her abdomen when she has a bowel movement with is relieved with movement. Occasionally will feel feverish. Denies pruritis, confusion or jaundice, pain RUQ/LUQ. Sleep is disturbed r/t pulmonology issues. When she has a cold she will feel faint she has not talked to her PCP about this yet but will be making an appointment to see her soon. She will also be seeing her pulmonology 04.07.22. ROS Const Constitutional: No fatigue, malaise, weight change, sleep problems, abnormal sleep pattern or change in appetite ENT ENT: No difficulty swallowing, hoarseness or sore throat Cardio Cardiology: No chest pain at rest Gastro GI: No belching, bloating, change in bowel habits, change in stool character, coffee ground emesis, constipation, cramping, diarrhea, heartburn, difficulty swallowing, feeling full early, excessive flatus, incontinent of stools, Vomiting blood/hematemesis, Blood in stool, loose stools, Black,tarry stools, nausea/dyspepsia, pain with swallowing, vomiting or other Musc Musculoskeletal: No joint pain Skin Skin: No yellowing of the eye or itchy eyes Neuro Neurology: No behavioral changes Psych Psychiatric: No abnormal sleep pattern, No anxiety, No behavioral changes, No change in appetite and No depression Endo Endocrine: No fatigue or weight change Aller/Imm Allergy/Immunologic: No itchy eyes Omar/Lymp Hematologic/Lymphatic: No easy bleeding or easy bruising Exam Const General: cooperative and comfortable Nutritional Appearance: average body habitus and well nourished HENMT Head: normal to inspection Ears: hearing grossly normal bilaterally Nose: external nose normal Face and sinus: normal facial exam Mouth: oral mucosae normal Throat: posterior oropharynx normal Eyes General: appearance normal, both eyes and all related structures Neck Neck: normal visual inspection Chest Chest palpation & inspection: normal inspection of the chest and normal palpation of entire chest wall Resp Effort & Inspection: normal respiratory effort Auscultation: Bilateral: Clear to Auscultation Cardio Palpation: normal PMI Rate: regular rate Rhythm: regular rhythm GI Inspection: normal to inspection Auscultation: normal bowel sounds Percussion: normal to percussion Palpation: no hepatosplenomegaly Skin General: no rashes or lesions noted Neuro General: patient alert Extrem General: normal to inspection Psych Affect: normal affect Quality Reporting Tobacco Screening ([facility] 138) Smoking Status: Never smoker Assessment and Plan Assessment and Plan (1) 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 Stewart Friend, DO: We we will check her labs in order to perform a meld score. Her previous meld score prior to surgery was 16. Since her surgery she has had decompensated cirrhosis with recurrent ascites requiring paracentesis. She also has had a decrease in her hemoglobin and platelet count. I suspect that her meld has increased. She is also on any signs of encephalopathy at this time. She does not have any signs of GI bleeding. She will need to undergo a screening EGD for varices. At that time she may need beta-nathan therapy. She does have refractory ascites to diuretics at this time. I will increase her Aldactone to 50 mg a day and Lasix 80 mg a day. We will recheck her kidney function in approximately 5 days to make sure she is not developing any renal failure secondary to diuretic therapy. She is young and should be evaluated for liver transplant. 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 I do not know if that is disqualify her for her regarding the evaluation for liver transplant. All this was explained to her son who is Venezuelan speaking in the office with his mother today. Plan Details Other Medications: Changed: From: spironolactone 25 mg PO DAILY 30 tabs 1RF To: spironolactone 50 mg (2 x 25 mg) PO DAILY 60 tabs 1RF From: furosemide (Lasix) 40 mg PO DAILY 30 tabs 1RF To: furosemide (Lasix) 80 mg (2 x 40 mg) PO DAILY 60 tabs 1RF I have re-examined the patient. There are no clinical changes since date of exam.
--- NOTE | 2022-03-14 15:18 | OP.EGD_ITS ---
Patient Name: Madhavi Avalos Procedure Date: 03/14/2022 2:38 PM Date of : 1960 Age: 62 Procedure: Upper GI endoscopy Indications: Cirrhosis with suspected esophageal varices Providers: Terry Estrada DO Medicines: Monitored Anesthesia Care Patient Profile: This is a 62 year old female. Refer to note in patient chart for documentation of history and physical. Patient has symptoms. Complications: No immediate complications. Procedure: Pre-Anesthesia Assessment: - Prior to the procedure, a History and Physical was performed, and patient medications and allergies were reviewed. The risks and benefits of the procedure and the sedation options and risks were discussed with the patient. All questions were answered and informed consent was obtained. Patient identification and proposed procedure were verified by the physician in the pre-procedure area. Mental Status Examination: alert and oriented. Airway Examination: normal oropharyngeal airway and neck mobility. Respiratory Examination: clear to auscultation. CV Examination: normal. Prophylactic Antibiotics: The patient does not require prophylactic antibiotics. Prior Anticoagulants: The patient has taken no previous anticoagulant or antiplatelet agents. ASA Grade Assessment: II - A patient with mild systemic disease. After reviewing the risks and benefits, the patient was deemed in satisfactory condition to undergo the procedure. The anesthesia plan was to use moderate sedation / analgesia (conscious sedation). Immediately prior to administration of medications, the patient was re-assessed for adequacy to receive sedatives. The heart rate, respiratory rate, oxygen saturations, blood pressure, adequacy of pulmonary ventilation, and response to care were monitored throughout the procedure. The physical status of the patient was re-assessed after the procedure. After obtaining informed consent, the endoscope was passed under direct vision. Throughout the procedure, the patient's blood pressure, pulse, and oxygen saturations were monitored continuously. The gastroscope was introduced through the mouth, and advanced to the second part of duodenum. The upper GI endoscopy was accomplished without difficulty. The patient tolerated the procedure well. Scope In: 2:56:38 PM Scope Out: 3:12:18 PM Total Procedure Duration Time 0 hours 15 minutes 40 seconds Findings: Grade III varices were found in the lower third of the esophagus. They were 5 mm in largest diameter. Two bands were successfully placed with incomplete eradication of varices. There was no bleeding during the procedure. Moderate portal hypertensive gastropathy was found in the entire examined stomach. The first portion of the duodenum was normal. Impression: - Grade III esophageal varices. Incompletely eradicated. Banded. - Portal hypertensive gastropathy. - Normal first portion of the duodenum. - No specimens collected. Recommendation: - Discharge patient to home. - Full liquid diet today. - Continue present medications. Procedure Code(s): --- Professional --- 39307, Esophagogastroduodenoscopy, flexible, transoral; with band ligation of esophageal/gastric varices CPT copyright 2017 [employer]. All rights reserved. The codes documented in this report are preliminary and upon electric wirer review may be revised to meet current compliance requirements. Terry Estrada DO 03/14/2022 3:17:56 PM This report has been signed electronically. Number of Addenda: 1 Note Initiated On: 03/14/2022 2:38 PM Addendum Number: 1 Addendum Date: 07/28/2022 6:21:05 AM MAC was used as sedation for this procedure. Terry Estrada DO 07/28/2022 6:21:09 AM This report has been signed electronically.
--- NOTE | 2022-03-14 15:19 | OP.CCLET_ITS ---
07/28/2022 Daniel Hess Re : Upper GI endoscopy procedure for Madhavi Avalos Dear Jimena This procedure was performed on Monday, March 14, 2022. My impressions and recommendations are as follows: Impressions : - Grade III esophageal varices. Incompletely eradicated. Banded. - Portal hypertensive gastropathy. - Normal first portion of the duodenum. - No specimens collected. Recommendations : - Discharge patient to home. - Full liquid diet today. - Continue present medications. My findings are described in the full procedure note, which is enclosed. If I can be of further assistance, please feel free to contact me at . Sincerely, Terry Estrada, 03/14/2022 3:17:56 PM This report has been signed electronically.
[2022-03-14 15:20] VITALS: BP 107/68; BP 117/70; PULSE 103; RESP 20; TEMP 36.9; O2SAT 96
[2022-03-14 15:25] VITALS: BP 100/68; BP 107/68; PULSE 126; RESP 20; O2SAT 94
[2022-03-14 15:30] VITALS: BP 107/68; BP 108/67; PULSE 102; RESP 20; O2SAT 95
[2022-03-14 15:35] VITALS: BP 100/78; BP 107/68; PULSE 100; RESP 18; TEMP 36.2; O2SAT 97
--- NOTE | 2022-03-14 16:23 | SUR.PHASEII ---
Spoke to Dr Ramires, he is agreeable to calling in a script for albuterol per patients request. Dr ramires also states that he would like patient to get an appointment with Dr Olmstead before the current scheduled appt of april 07. Called dr hemphill office, reached voicemail. Left message requesting an earlier appt per Dr Hartman request. left contact number of david Carrizales ([phone]) Instructed david Carrizales that if he does not hear back from Dr Hemphill office by tomorrow afternoon, to call them again.
[2022-03-14 16:55] VITALS: BP 107/68
== END 2022-03-14 17:00 | disposition home or self-care (01) ==
LOC: EN 13:09 → AC 13:21
PROVIDERS: Anesthesiology; PCP Family Medicine; Referring Provider Family Medicine; Visit Provider Internal Medicine Gastroenterology
PROC: 0DJ08ZZ Inspection of Upper Intestinal Tract, Via Natural or Artificial Opening Endoscopic (ICD-10-PCS; CPT 43235; principal; 2022-03-14 13:55)
DX: K76.6 Portal hypertension (principal); I85.00 Esophageal varices without bleeding; K74.60 Unspecified cirrhosis of liver; J43.9 Emphysema, unspecified; Z20.822 Contact with and (suspected) exposure to COVID-19; K75.81 Nonalcoholic steatohepatitis (NASH); K31.89 Other diseases of stomach and duodenum; Z99.81 Dependence on supplemental oxygen; Z79.899 Other long term (current) drug therapy
CPT/HCPCS: 43244; 84484; 87426; J7120; J2405

== ENCOUNTER → 2022-04-26 | Outpatient (CLI) | payer SELFPAY ==
[2022-04-26 16:04] LABS: Absolute Lymphocyte Count 1.37 X10^3/uL (0.83-4.51); Absolute Neutrophil Count 1.4 X10^3/uL (2.0-7.7); Basophil# 0.01 X10^3/uL; Basophil% 0.3 % (0-1); Eosinophil# 0.14 X10^3/uL; Eosinophils% 4.3 % (0-5); Hematocrit 31.9 % (37-47); Hemoglobin 9.7 g/dL (12.0-15.0); Lymphocyte # 1.37 X10^3/ul (0.83-4.51); Lymphocyte % 42.3 % (19-41); Mean Corp Hgb Conc 30.4 g/dL (32-36); Mean Corpuscular Hgb 25.3 pg (27.0-32.0); Mean Corpuscular Volume 83.1 fL (81-99); Mean Platelet Vol. 9.6 fl (6.2-12.0); Monocyte% 9.3 % (0-10); NRBC Flagged by Analyzer 0 % (0-5); Neutrophil # 1.41 X10^3/uL (2.7-7.7); Neutrophil % 43.5 % (47-70); POSITIVE MORPHOLOGY YES; Platelet Count 141 K/mm3 (150-450); RBC Distribution Width CV 22.8 % (11.6-14.6); Red Blood Count 3.84 M/mm3 (4.2-5.4); White Blood Count 3.2 K/mm3 (4.4-11.0)
[2022-04-26 16:08] LABS: Differential Indicated SCAN CRITERIA MET
[2022-04-26 16:16] LABS: International Normalized Ratio 1.7
[2022-04-26 16:33] LABS: ALB/GLOB Ratio 0.5 RATIO (0.9-2.4); AST(SGOT) 36 U/L (15-37); Alanine Aminotransfer ALT/SGPT 18 U/L (13-56); Albumin, Serum 2.3 g/dL (3.2-5.0); Alkaline Phosphatase 202 U/L (45-117); Anion Gap 3 (5-15); BUN 11 mg/dL (7-18); BUN/Creat Ratio 21.7 RATIO (10-20); Calcium,Total 7.5 mg/dL (8.5-10.1); Chloride 108 mmol/L (98-107); Creatinine, Serum 0.51 mg/dL (0.55-1.02); EST Glomerular Filtration Rate 131 mL/min (>60); Est Glom Filt Rate - Afr Amer 159 mL/min (>60); Globulin 4.7 g/dL (2.2-4.2); Glucose 88 mg/dL (74-106); Potassium 3.6 mmol/L (3.5-5.1); Sodium Level 140 mmol/L (136-145)
[2022-04-26 16:52] LABS: Differential Comment SCANNED
[2022-04-28 07:08] LABS: HEPATITIS B SURFACE AG Negative (Negative); Hep C Antibodies <0.1 s/co ratio (0.0-0.9); Hepatitis A IgM Antibody Negative (Negative); Hepatitis B Core AB IgM Negative (Negative)
== END | disposition home or self-care (01) ==
LOC: LAB 14:55
PROVIDERS: PCP Family Medicine; Visit Provider Nurse Practitioner Adult Health
DX: K75.81 Nonalcoholic steatohepatitis (NASH) (principal); K74.60 Unspecified cirrhosis of liver
CPT/HCPCS: 36415; 80053; 80074; 82140; 85025; 85610

== ENCOUNTER 2022-07-10 09:55 | Day surgery (SDC) | payer SELFPAY ==
[2022-07-10] VITALS (7 sets, daily range): BP systolic 102–128; BP diastolic 71–81; PULSE 87–94; RESP 16–18; TEMP 36.2–36.7; O2SAT 94–100; BMI 35.6
[2022-07-10] MEDS: Lactated Ringers 1,000 ML 15 ML IV (10:33)
--- NOTE | 2022-07-10 10:36 | PCM.HP.BLA ---
History and Physical Date of Admission: 07/10/22 MADHAVI FOSTER, is a 62 F who presents to the office today for follow-up HARRISON-related cirrhosis.? She is accompanied by her daughter who acts as carton marker machine.? They report that the patient is doing very well.? She feels good, has energy, enjoys being able to cook and be active around the home.? She ran out of her diuretics about 1 week ago; she has done well on the diuretics, she has not had any issue with ascites or edema.? Doses of of diuretics were increased for ascites at her 03/09/2022 appointment--furosemide 40 mg BID, spironolactone 50 mg daily.? She had paracentesis on 02/28/22, 1050 mL, no growth, negative for malignancy. She denies jaundice.? She denies pruritus.? She has not had any bruising or bleeding, no hematemesis, hematuria, hematochezia or melena.? She denies any confusion or forgetfulness.? She is sleeping well at night.? She takes a 1 hour nap during the day.? She feels awake and alert throughout the day otherwise.? She takes lactulose twice a day.? She has 5 bowel movements per day, this is formed stool not diarrhea.? She did take Xifaxan until she ran out of it, her daughter paid for it, it cost $2000.? The only abdominal pain she has is when she eats certain types of fruit, that resolves then when she has a bowel movement.? She is not on a beta-nathan.? She does have esophageal varices; Dr Estrada banded varices on 03/14/22.? Daughter reports her mother used to have hypertension but it resolved spontaneously.? She does not have any dizziness or lightheadedness, but does tend to have low blood pressure now. She has been diagnosed with tuberculosis.? She was seen by the pulmonology department here, they referred her to infectious disease Dr. Li, he requested AFB, patient was not aware of this, didn't know why her appt was pushed back. Madhavi established with this clinic through hospitalization with [facility]. She presented to [facility] ED 12.22.21 with epigastric and RUQ abdominal pain without exacerbating or alleviating factors. Admitted to treat acute appendicitis and acute cholecystitis. Incidentally, it was found that she has cirrhosis of the liver during ED workup. Underwent cholecystectomy 12.22.21. Gastroenterology was consulted 12.22.21 for new diagnosis of HARRISON cirrhosis with ascites. MELD at consultation with noted decompensation r/t acute cholecystitis. She was started on Xifaxan 550mg BID for hepatic encephalopathy with lactulose 20mg QD, ursodiol 550mg Lasix 20mg and Aldactone 12.5mg QD. She was discharged 12.24.21. CT abd/pel 12.22.21 found decreased liver size with cirrhotic changes; perihepatic fluid; splenomegaly; gallbladder distention; diffuse thickening of gastric wall; colonic diverticula; increased marking within mesenteric fat; shift of heart and mediastinal structures toward right hemithorax; small right pleural effusion. US gallbladder 12.22.21 found liver measurement 14.1 with heterogeneous echogenicity of the liver without mass or lesion; gallbladder markedly distended with thickened wall and positive sonographic Mock?s sign and pericholecystic fluid and gallstones. [facility] ED presentation 02.27.22 for increasing abdominal ascites following laparoscopic cholecystectomy 2-3 weeks prior. Paracentesis performed with 1050mL fluid removed; cytology without abnormal finding. 03/14/22 EGD Impression: ?- Grade III esophageal varices. Incompletely ? eradicated. Banded. ? - Portal hypertensive gastropathy. ? - Normal first portion of the duodenum. ? - No specimens collected. ROS Const Constitutional: No fatigue ENT ENT: No difficulty swallowing Gastro GI: No abdominal pain, belching, bloating, change in bowel habits, change in stool character, coffee ground emesis, constipation, cramping, diarrhea, heartburn, difficulty swallowing, feeling full early, excessive flatus, incontinent of stools, Vomiting blood/hematemesis, Blood in stool, loose stools, Black,tarry stools, nausea/dyspepsia, pain with swallowing, vomiting or other Musc Musculoskeletal: No joint pain Skin Skin: No yellowing of the eye or itchy eyes Psych Psychiatric: No anxiety and No depression Endo Endocrine: No fatigue Aller/Imm Allergy/Immunologic: No itchy eyes Omar/Lymp Hematologic/Lymphatic: No easy bleeding or easy bruising Exam Const General: cooperative, comfortable, no acute distress and well developed Nutritional Appearance: obese HENMT Head: normal to inspection Eyes Conjunctivae: conjunctivae normal Sclera: sclerae normal Resp Effort & Inspection: normal respiratory effort GI Inspection: obesity Palpation: soft, no masses and nontender Skin General: no jaundice Neuro General: patient alert, patient awake and patient oriented x3 Extrem General: pedal edema bilaterally Location: of the leg (trace) Severity: non-pitting Psych Mood: euthymic mood Affect: normal affect Quality Reporting Tobacco Screening ([facility] 138) Smoking Status: Never smoker Assessment and Plan Assessment and Plan (1) 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 Compensated cirrhosis. Pt is Russian-speaker. Daughter paid $2000 tiwari for xifaxan, so no I'm not recommending that rx at this time since pt's hepatic encephalopathy is controlled with lactulose, continue lactulose BID. BP too low to tolerate beta nathan at this time. Schedule another EGD for banding of esophageal varices. Refill lactulose, diuretics. The diuretics have been controlling ascites; we need to check labs today since diuretics were increased, and to update MELD. We will order AFB to be done at [facility] so she can see ID for treatment of TB. We have tried to refer her to liver transplant group but she is uninsured; so we'll see if perhaps [facility] or another agency could help her figure out how to get insured. (2) Tuberculosis: ?Status:?Acute ?Plan: see above ? ? ? Orders: Orders AFB Stain & Cytology 04/26/22 A15.9 - Respiratory tuberculosis unspecified ? Comprehensive Metabolic Profil 04/26/22 K74.60 - Unspecified cirrhosis of liver, K75.81 - Nonalcoholic steatohepatitis (HARRISON) ? Prothrombin Time w/INR 04/26/22 K74.60 - Unspecified cirrhosis of liver, K75.81 - Nonalcoholic steatohepatitis (HARRISON) ? CBC W/Diff, Automated 04/26/22 K74.60 - Unspecified cirrhosis of liver, K75.81 - Nonalcoholic steatohepatitis (HARRISON) ? Hepatitis Panel Acute 04/26/22 K74.60 - Unspecified cirrhosis of liver, K75.81 - Nonalcoholic steatohepatitis (HARRISON) ? Ammonia 04/26/22 K74.60 - Unspecified cirrhosis of liver, K75.81 - Nonalcoholic steatohepatitis (HARRISON) ? AFB Cult/Smear [id number] 04/26/22 A15.9 - Respiratory tuberculosis unspecified ? Medications: New lactulose 20 grams (30 mL) PO BID 3,000 mL 1RF ? ? Changed From furosemide (Lasix) 80 mg (2 x 40 mg) PO DAILY 60 tabs 1RF ? ? To furosemide (Lasix) 80 mg (2 x 40 mg) PO BID 180 tabs 1RF ? ? Refilled spironolactone 50 mg (2 x 25 mg) PO DAILY 180 tabs 1RF ? ? Discontinued levofloxacin ?? Discontinued Reason:? Order Completed 500 mg? PO Q24H 7 tabs 0RF ? ? rifaximin (Xifaxan) ?? Discontinued Reason:? Cost Prohibitive 550 mg? PO BID 60 tabs 0RF ? ? lactulose ?? Discontinued Reason:? Duplicate Order 20 grams? PO BID 10 days 60 ea 1RF ? ? I have re-examined the patient. There are no clinical changes since date of exam.
--- NOTE | 2022-07-10 11:15 | OP.CCLET_ITS ---
07/10/2022 Daniel Hess Re : Upper GI endoscopy procedure for Madhavi Avalos Dear Jimena This procedure was performed on Sunday, July 10, 2022. My impressions and recommendations are as follows: Impressions : - Non-bleeding grade III esophageal varices. Incompletely eradicated. Banded. - Type 1 gastroesophageal varices (GOV1, esophageal varices which extend along the lesser curvature), without bleeding. - Normal first portion of the duodenum. - No specimens collected. Recommendations : - Written discharge instructions were provided to the patient. - The signs and symptoms of potential delayed complications were discussed with the patient. - Patient has a contact number available for emergencies. - Return to normal activities tomorrow. - Resume previous diet. - Continue present medications. - Repeat upper endoscopy in 3 months to assess disease activity. My findings are described in the full procedure note, which is enclosed. If I can be of further assistance, please feel free to contact me at . Sincerely, Terry Estrada, 07/10/2022 11:14:25 AM This report has been signed electronically.
--- NOTE | 2022-07-10 11:15 | OP.EGD_ITS ---
Patient Name: Madhavi Avalos Procedure Date: 07/10/2022 10:37 AM Date of : 1960 Age: 62 Procedure: Upper GI endoscopy Indications: Cirrhosis with UGI bleeding suspected esophageal varices Providers: Terry Estrada DO Medicines: Monitored Anesthesia Care Patient Profile: This is a 62 year old female. Refer to note in patient chart for documentation of history and physical. Patient has symptoms of chronic nausea and chronic vomiting. Complications: No immediate complications. Procedure: Pre-Anesthesia Assessment: - Prior to the procedure, a History and Physical was performed, and patient medications and allergies were reviewed. The risks and benefits of the procedure and the sedation options and risks were discussed with the patient. All questions were answered and informed consent was obtained. Patient identification and proposed procedure were verified by the physician in the pre-procedure area. Mental Status Examination: alert and oriented. Airway Examination: normal oropharyngeal airway and neck mobility. Respiratory Examination: clear to auscultation. CV Examination: normal. Prophylactic Antibiotics: The patient does not require prophylactic antibiotics. Prior Anticoagulants: The patient has taken no previous anticoagulant or antiplatelet agents. ASA Grade Assessment: II - A patient with mild systemic disease. After reviewing the risks and benefits, the patient was deemed in satisfactory condition to undergo the procedure. The anesthesia plan was to use monitored anesthesia care (MAC). Immediately prior to administration of medications, the patient was re-assessed for adequacy to receive sedatives. The heart rate, respiratory rate, oxygen saturations, blood pressure, adequacy of pulmonary ventilation, and response to care were monitored throughout the procedure. The physical status of the patient was re-assessed after the procedure. After obtaining informed consent, the endoscope was passed under direct vision. Throughout the procedure, the patient's blood pressure, pulse, and oxygen saturations were monitored continuously. The gastroscope was introduced through the mouth, and advanced to the second part of duodenum. The upper GI endoscopy was accomplished without difficulty. The patient tolerated the procedure well. Scope In: 10:56:40 AM Scope Out: 11:04:53 AM Total Procedure Duration Time 0 hours 8 minutes 13 seconds Findings: Four columns of non-bleeding grade III varices were found in the upper third of the esophagus, in the middle third of the esophagus and in the lower third of the esophagus, 38 cm from the incisors. They were 5 mm in largest diameter. No stigmata of recent bleeding were evident and no red naida signs were present. Stigmata of prior treatment were evident. Three bands were successfully placed with incomplete eradication of varices. There was no bleeding during the procedure. Type 1 gastroesophageal varices (GOV1, esophageal varices which extend along the lesser curvature) with no bleeding were found in the gastric fundus. There were no stigmata of recent bleeding. They were 3 mm in largest diameter. The first portion of the duodenum was normal. Impression: - Non-bleeding grade III esophageal varices. Incompletely eradicated. Banded. - Type 1 gastroesophageal varices (GOV1, esophageal varices which extend along the lesser curvature), without bleeding. - Normal first portion of the duodenum. - No specimens collected. Recommendation: - Written discharge instructions were provided to the patient. - The signs and symptoms of potential delayed complications were discussed with the patient. - Patient has a contact number available for emergencies. - Return to normal activities tomorrow. - Resume previous diet. - Continue present medications. - Repeat upper endoscopy in 3 months to assess disease activity. Procedure Code(s): --- Professional --- 84589, Esophagogastroduodenoscopy, flexible, transoral; with band ligation of esophageal/gastric varices CPT copyright 2017 [employer]. All rights reserved. The codes documented in this report are preliminary and upon utility arborist review may be revised to meet current compliance requirements. Terry Estrada DO 07/10/2022 11:14:25 AM This report has been signed electronically. Number of Addenda: 0 Note Initiated On: 07/10/2022 10:37 AM
== END 2022-07-10 12:45 | disposition home or self-care (01) ==
LOC: EN 09:58 → AC 10:00
PROVIDERS: PCP Family Medicine; Referring Provider Family Medicine; Visit Provider Internal Medicine Gastroenterology
PROC: 0DJ08ZZ Inspection of Upper Intestinal Tract, Via Natural or Artificial Opening Endoscopic (ICD-10-PCS; CPT 43235; principal; 2022-07-10 10:40)
DX: K75.81 Nonalcoholic steatohepatitis (NASH) (principal); I85.00 Esophageal varices without bleeding; K74.60 Unspecified cirrhosis of liver; J43.9 Emphysema, unspecified; A15.9 Respiratory tuberculosis unspecified; Z99.81 Dependence on supplemental oxygen
CPT/HCPCS: 43244; J7120; J2405

== ENCOUNTER → 2022-07-31 | Outpatient (CLI) | payer SELFPAY ==
--- NOTE | 2022-07-31 | FLU_PTH ---
PATIENT: KIERRA FLOWER #:[id number] LOC: [facility]#:[id number] AGE/SX: 62/F ROOM: RE07/31/[address]: Dr. Terry Estrada DO : 1960 BED: DIS: 07/31/2022 SPEC #: [id number] RECD: 07/31/22 09:16 STATUS: FAHAD NGUYEN #: [id number] SERGEI: 07/31/22 00:[address]: Terry Estrada DEPT: CYTOLOGY RECD BY: Dominic Molina ENTERED: 08/01/22 08:33 SP TYPE: Fluid OTHR DR: Dr. Darlene Garibay MD Tissues: PARACENTESIS FLUID Procedures: Special Stain Group II Surgery Specimen Level IV Cytospin Fluid HEADER OPERATION: Ultrasound-guided right paracentesis PRE-OP DIAGNOSIS: Ascites TISSUE SUBMITTED: Paracentesis fluid for cytology DIAGNOSIS CYTOLOGY Paracentesis fluid for cytology (cytospin and cell block): Negative for malignant cells. AM:colby 08/02/2022 CYTOLOGY STUDY Slides are reviewed. CYTOLOGY GROSS Received is 100 ml of orange cloudy fluid labeled with the patient's name and and designated per the requisition as paracentesis. Submitted for cytology preparation including cell block. / colby 08/01/2022 TC:5 CPT: 79082, 19102
--- NOTE | 2022-07-31 08:03 | US_ITS ---
PROCEDURE: Ultrasound guided paracentesis. DATE OF EXAMINATION: 07/31/2022. INDICATION: Female, 62 years old. Ascites. PHYSICIAN: Valeriano Hull M.D. TECHNIQUE: The risks, benefits, and alternatives to the procedure were explained to the patient. The specific risks of bleeding, infection, and damage to bowel were detailed and accepted. Witnessed informed consent was obtained. The abdomen was ultrasonographically surveyed. An appropriate pocket of fluid was identified at the right lower quadrant. The skin were cleaned and prepped in the usual sterile fashion. Using ultrasound guidance, the peritoneal cavity was accessed with a 5-Guyanese paracentesis needle/catheter system. The trocar was removed. A total of 9050 ml of willis-colored fluid were removed from the peritoneal cavity. A 100 mL sample was sent to the laboratory for analysis. The catheter was removed and a sterile dressing was applied. The procedure was well tolerated. US/Paracentesis with US IMPRESSION: Ultrasound guided paracentesis. Electronically Signed: Valeriano Hull MD at 9:36 EDT ,
[2022-07-31 08:27] VITALS: BP 100/55; BP 113/66; BP 119/62; BP 124/63; PULSE 101; PULSE 87; PULSE 89; RESP 18; TEMP 36.6; O2SAT 94; O2SAT 95; O2SAT 96; O2SAT 97
[2022-07-31] MEDS: Lidocaine 2% (10 ml mdv) 10 ML Vial INFILT (08:27)
[2022-07-31 09:19] VITALS: BP 101/61; PULSE 99; RESP 16; TEMP 36.3; O2SAT 99
[2022-07-31] MEDS: 0.9% Saline Lock 10 ML Syringe IV ×2 (09:36→09:43)
[2022-07-31] MEDS: Albumin Human 25% (100 mL) 25 GM/100 ML BAG IV ×2 (09:48→11:14)
[2022-07-31 10:09] LABS: Absolute Neutrophil Count 1.4 X10^3/uL (2.0-7.7); Basophil# 0.02 X10^3/uL; Basophil% 0.7 % (0-1); Eosinophil# 0.14 X10^3/uL; Eosinophils% 5.1 % (0-5); Hematocrit 31.7 % (37-47); Hemoglobin 9.8 g/dL (12.0-15.0); Lymphocyte % 29.2 % (19-41); Mean Corp Hgb Conc 30.9 g/dL (32-36); Mean Corpuscular Volume 84.1 fL (81-99); Mean Platelet Vol. 10.5 fl (6.2-12.0); Monocyte# 0.38 X10^3/uL; Monocyte% 13.9 % (0-10); NRBC Flagged by Analyzer 0 % (0-5); Neutrophil # 1.39 X10^3/uL (2.7-7.7); Neutrophil % 50.7 % (47-70); Platelet Count 117 K/mm3 (150-450); RBC Distribution Width CV 19.2 % (11.6-14.6); RBC Distribution Width SD 58.7 fl (35.1-43.9); Red Blood Count 3.77 M/mm3 (4.2-5.4); White Blood Count 2.7 K/mm3 (4.4-11.0)
[2022-07-31 10:39] LABS: International Normalized Ratio 1.8; Prothrombin Time (Protime)PT. 20.4 SECONDS (11.7-14.9)
[2022-07-31 10:48] LABS: ALB/GLOB Ratio 0.4 RATIO (0.9-2.4); AST(SGOT) 30 U/L (15-37); Alanine Aminotransfer ALT/SGPT 20 U/L (13-56); Alkaline Phosphatase 159 U/L (45-117); Anion Gap 4 (5-15); BUN 14 mg/dL (7-18); BUN/Creat Ratio 25.3 RATIO (10-20); Calcium,Total 7.3 mg/dL (8.5-10.1); Chloride 107 mmol/L (98-107); Creatinine, Serum 0.55 mg/dL (0.55-1.02); EST Glomerular Filtration Rate 119 mL/min (>60); Est Glom Filt Rate - Afr Amer 144 mL/min (>60); Globulin 4.5 g/dL (2.2-4.2); Glucose 95 mg/dL (74-106); LDH 179 U/L (84-246); Potassium 3.7 mmol/L (3.5-5.1); Protein, Total 6.5 g/dL (6.4-8.2); Sodium Level 142 mmol/L (136-145)
[2022-07-31 13:03] VITALS: BP 93/48; PULSE 83; RESP 16; TEMP 35.8; O2SAT 99
== END | disposition home or self-care (01) ==
LOC: US 07:55
PROVIDERS: Nurse Practitioner Adult Health; PCP Family Medicine; Referring Provider Internal Medicine Gastroenterology; Visit Provider Internal Medicine Gastroenterology
DX: K75.81 Nonalcoholic steatohepatitis (NASH) (principal); R18.8 Other ascites
CPT/HCPCS: 96365; 96366 ×2; 49083; 80053; 82140; 83615; 85025; 85610; 88108; 88305; 88313; J7050; P9047; A4216

== ENCOUNTER → 2022-09-08 | Outpatient (CLI) | payer SELFPAY ==
--- NOTE | 2022-09-07 14:44 | CASEMGMT ---
Noted from H&P from 07/10/22, Pt is uninsured. Complex Quality Control Operator called [facility] regarding this as Pt is looking to get on the transplant list. Navigator left a voicemail, with contact information, for Giselle.
--- NOTE | 2022-09-08 09:08 | US_ITS ---
PROCEDURE: Ultrasound guided paracentesis. DATE OF EXAMINATION: 09/08/2022. INDICATION: Female, 62 years old. Ascites. PHYSICIAN: Valeriano Hull M.D. TECHNIQUE: The risks, benefits, and alternatives to the procedure were explained to the patient. The specific risks of bleeding, infection, and damage to bowel were detailed and accepted. Witnessed informed consent was obtained. The abdomen was ultrasonographically surveyed. An appropriate pocket of fluid was identified at the right lower quadrant. The skin were cleaned and prepped in the usual sterile fashion. Using ultrasound guidance, the peritoneal cavity was accessed with a 5-Cook Islander paracentesis needle/catheter system. The trocar was removed. A total of 9000 ml of willis-colored fluid were removed from the peritoneal cavity. The catheter was removed and a sterile dressing was applied. The procedure was well tolerated. US/Paracentesis with US IMPRESSION: Ultrasound guided paracentesis. Electronically Signed: Valeriano Hull MD at 10:40 EST ,
[2022-09-08 09:37] VITALS: BP 103/69; BP 104/65; BP 105/58; BP 108/62; PULSE 102; PULSE 104; PULSE 105; RESP 18; O2SAT 92; O2SAT 94
[2022-09-08] MEDS: Lidocaine 2% (20 ml mdv) 20 ML Vial (09:37)
--- NOTE | 2022-09-08 10:08 | CASEMGMT ---
Addendum entered by Madeleine Draper 09/08/22 16:29: TC to Marlee with the [facility]. Marlee advised pt and pt's dtr can contact her at [phone] ex [phone]. Pt will make an appointment with Marlee. Marlee said pt may be able to get financial assistance, be referred to [place], or be accepted for Medicaid (since she's been in the states more than five years). TC to pt. Pt and pt's dtr spoke with Skye. Navigator provided Marlee's phone number and relayed what was said. Pt's dtr said she and pt will call Marlee. Addendum entered by Madeleine Draper 09/08/22 12:22: Complex Javascript Engineer called [facility]. Navigator spoke with Donovan and nurse Cr. Navigator was advised, since pt is uninsured, to call [facility]. Navigator called [facility] and was advised if the [facility] [place] [facility] [place] [facility], they are unable to assist. They only assist those visiting from another country. Navigator was encouraged to contact transplant facilities. Addendum entered by Madeleine Draper 09/08/22 10:25: Complex Javascript Engineer reached out to the [facility] Pt Assistance Program. Navigator will wait to hear back from the foundation to note whether or not the pt is a candidate for the program. Addendum entered by Madeleine Draper 09/08/22 10:15: TC to Avni Whalen Navigator with the [facility]. Voicemail left with the Complex Javascript Engineer's phone contact along with a request for a return call. Original Note: Complex Javascript Engineer phoned Nirmala and Félix, with [employer], regarding insurance questions. Both were unavailable. Voicemail left with both. Navigator's contact information provided along with a request for a return call.
--- NOTE | 2022-09-08 10:30 | CASEMGMT ---
Complex [employer] Assessment Navigator met with pt while Albumin was administered. Pt?s dtr, Eaglelauren, in room. Ipad utilized for translation. Pt gave permission for her dtr to be in the room during the assessment. 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 Pt is doing very well. She feels good, has energy, and enjoys being able to cook and be active around the home. She denies jaundice.? She denies pruritus.? She has not had any bruising or bleeding, no hematemesis, hematuria, hematochezia or melena.? She denies any confusion or forgetfulness.? She is sleeping well at night.? She takes a 1 hour nap during the day.? She feels awake and alert throughout the day otherwise.?She has been diagnosed with tuberculosis.? She was seen by the pulmonology department here, they referred her to infectious disease Dr. Li. Dx:? 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 Hospitalizations in 2021: -02/27/22 ? 03/01/22:? Abdominal Ascites. -12/22/21 ? 12/24/21:? Cholecystitis, Appendicitis. New concerns: -Pt said she feels ?full? and like she?s ?9 months ? 4-5 days after paracentesis procedure. Providers:? -[place], PCP; Friend, GI. ? Insurance:? -Pt is uninsured. Medication:? -Per pt?s H&P on 07/10/22, pt is now on Lactulose 20grams PO BID. Furosemide is now 80mg PO BID 180tabs. Refilled Spironolactone 50mug PO daily 180tabs. Discontinue:? Levofloxacin (order complete), Rifaximin (cost prohibitive), and lactulose (duplicate order). ? ? Scheduled appointments:? -09/20/22:? Paracentesis, Albumin. -10/04/22:? Paracentesis, Albumin. -10/18/22: ?Paracentesis, Albumin. -11/20/22:? GI visit with Nanda Thomas NP. ? Smoker/Non, Alcohol use, substance use: -Pt denied smoking, alcohol use, or substance use in the past or present. ? Understanding of the disease process: -Pt voiced understanding of the disease process and denied any questions. ? SDOH (Finances, Housing, Transportation, Phone/Internet, Food, Support/Family, Employment): -Pt denied any current financial issues. Pt advised she is living on her late ?s pension. Pt and her dtr live together and denied any housing concerns. Pt?s dtr transports. Pt?s dtr has a phone that the pt uses. Pt and her dtr have internet. Pt denied any food concerns. Pt has the support of her dtr as well as a ?[employer]?. Pt is unemployed. ? DME: -Pt has [employer] through [employer]. Pt reports having a concentrator and necessary supplies. Pt has a walker and uses it if needed. ? Needs: -Pt would like to be placed on the transplant list but is uninsured. -Pt is interested in obtaining a wheelchair and shower chair. ? Goals: -Pt?s goal is to get on the transplant list. -Per BHARGAVI?s note on 12/23/21, pt received the following financial resources:? information on the [facility], [employer], 211, Food pantry resources, [facility] Assist, Prescription assistance programs, [employer] resources, and a Medicaid application. ? -Navigator has contacted the following:? [facility], [facility], [facility], [facility] Pt Assistance Program, and [facility]. Navigator provided pt with Marlee?anastacia, from [employer], contact information. ? ?
[2022-09-08] MEDS: Albumin Human 25% (100 mL) 25 GM/100 ML BAG IV (10:44)
[2022-09-08] MEDS: 0.9% Saline Lock 10 ML Syringe IV (10:47)
[2022-09-08 10:49] VITALS: BP 126/72; PULSE 78; RESP 16; TEMP 36.2; O2SAT 99
[2022-09-08 12:18] VITALS: BP 86/60; PULSE 83; RESP 16; TEMP 36.8; O2SAT 95
--- NOTE | 2022-09-11 09:07 | CASEMGMT ---
EFRAÍN from Félix with [facility]. Félix advised pt is unable to obtain insurance through [facility] unless pt is a Citizen, has a Green Card, or has a Visa Card.
--- NOTE | 2022-09-12 08:13 | CASEMGMT ---
Notification received from the [facility]. Complex Cooling Machine Operator was advised that individuals are denied transplants without insurance due to the cost being much too high for the patients to have a good outcome after the transplant and to maintain care. The foundation further advised they are not aware of any programs/care for uninsured patients. Based on the [facility] research, receiving insurance coverage is likely the only chance of being put on the wait list. The [facility] assistance is for post-transplant recipients. Pt would not be eligible unless approved for transplant.
== END | disposition home or self-care (01) ==
LOC: US 09:07
PROVIDERS: PCP Family Medicine; Referring Provider Internal Medicine Gastroenterology; Visit Provider Internal Medicine Gastroenterology
DX: K75.81 Nonalcoholic steatohepatitis (NASH) (principal)
CPT/HCPCS: 49083; P9047; A4216

== ENCOUNTER → 2022-09-20 | Outpatient (CLI) | payer SELFPAY ==
--- NOTE | 2022-09-20 10:27 | US_ITS ---
PROCEDURE: Ultrasound guided paracentesis. DATE OF EXAMINATION: 09/20/2022. INDICATION: Female, 62 years old. Ascites. PHYSICIAN: Rafita Luis DO TECHNIQUE: The risks, benefits, and alternatives to the procedure were explained to the patient''s daughter who translated for the patient as patient does not speak Ukrainian. The specific risks of bleeding, infection, and damage to bowel were detailed and accepted. Witnessed informed consent was obtained. The abdomen was ultrasonographically surveyed. An appropriate pocket of fluid was identified at the right upper quadrant. The skin were cleaned and prepped in the usual sterile fashion. Using ultrasound guidance, the peritoneal cavity was accessed with a 5-Pashto paracentesis needle/catheter system. The trocar was removed. A total of 9050 ml of clear straw-colored ascites fluid were removed from the peritoneal cavity. The catheter was removed and a sterile dressing was applied. The procedure was well tolerated. The patient was discharged in stable condition. US/Paracentesis with US IMPRESSION: Ultrasound guided therapeutic paracentesis. Electronically Signed: Rafita Luis, at 12:45 EST ,
[2022-09-20] MEDS: Lidocaine 2% (20 ml mdv) 20 ML Vial INFILT (10:55)
--- NOTE | 2022-09-20 11:35 | RAD_ITS ---
STUDY: XR Chest 2 Views 09/20/2022 11:42 AM REASON FOR EXAM: Female, 62 years old. CHEST PAIN shortness of breath COMPARISON: 03/02/2022 TECHNIQUE: XR Chest 2 Views FINDINGS: There is is volume loss in the right hemithorax with shift of the heart and mediastinal structures towards the right side. Stable chronic infiltrate/scarring in the right hemithorax suggestive of a post tuberculosis infection. Stable mild increased markings at the left lung base. There is no demonstrated pleural abnormality.. Normal heart size. Normal mediastinum. Normal les. Prominent appearing increased interstitial lung markings. Normal visualized pulmonary arteries. There is atherosclerotic calcification of the aortic arch with tortuosity. There are diffuse degenerative changes of the visualized thoracic spine. There is degenerative osteoarthritis of the bilateral shoulders. There is no demonstrated abnormality of the visualized soft tissue structures of the upper abdomen. RAD/Chest PA and Lateral IMPRESSION: There has been no change in the appearance of the chest since the prior study. Electronically Signed: Jt Betancourt MD at 16:53 EST Reading Location ID and State: [facility] / [place] , Service support ,
[2022-09-20 11:50] LABS: Absolute Lymphocyte Count 1.15 X10^3/uL (0.83-4.51); Absolute Neutrophil Count 1.5 X10^3/uL (2.0-7.7); Basophil# 0.01 X10^3/uL; Basophil% 0.3 % (0-1); Eosinophil# 0.14 X10^3/uL; Eosinophils% 4.3 % (0-5); Hematocrit 33.5 % (37-47); Hemoglobin 10.9 g/dL (12.0-15.0); Lymphocyte # 1.15 X10^3/ul (0.83-4.51); Lymphocyte % 35.2 % (19-41); Mean Corp Hgb Conc 32.5 g/dL (32-36); Mean Corpuscular Hgb 27.5 pg (27.0-32.0); Mean Corpuscular Volume 84.4 fL (81-99); Mean Platelet Vol. 10.3 fl (6.2-12.0); Monocyte# 0.44 X10^3/uL; Monocyte% 13.5 % (0-10); NRBC Flagged by Analyzer 0 % (0-5); Neutrophil # 1.52 X10^3/uL (2.7-7.7); Neutrophil % 46.4 % (47-70); Platelet Count 108 K/mm3 (150-450); RBC Distribution Width CV 17.8 % (11.6-14.6); RBC Distribution Width SD 55.3 fl (35.1-43.9); Red Blood Count 3.97 M/mm3 (4.2-5.4); White Blood Count 3.3 K/mm3 (4.4-11.0)
[2022-09-20 11:51] LABS: International Normalized Ratio 1.6; Prothrombin Time (Protime)PT. 18.4 SECONDS (11.7-14.9)
[2022-09-20 11:55] VITALS: BP 118/75; PULSE 78; RESP 16; TEMP 36.6; O2SAT 99
[2022-09-20] MEDS: Albumin Human 25% (100 mL) 25 GM/100 ML BAG IV ×2 (11:55→13:15)
[2022-09-20] MEDS: 0.9% NaCl Peripheral Flush Adult/Peds IV (11:55)
[2022-09-20 11:58] LABS: ALB/GLOB Ratio 0.6 RATIO (0.9-2.4); AST(SGOT) 35 U/L (15-37); Alanine Aminotransfer ALT/SGPT 21 U/L (13-56); Albumin, Serum 2.4 g/dL (3.2-5.0); Alkaline Phosphatase 167 U/L (45-117); Anion Gap 6 (5-15); BUN 17 mg/dL (7-18); Calcium,Total 7.7 mg/dL (8.5-10.1); Chloride 103 mmol/L (98-107); Creatinine, Serum 0.61 mg/dL (0.55-1.02); EST Glomerular Filtration Rate 107 mL/min (>60); Est Glom Filt Rate - Afr Amer 129 mL/min (>60); Globulin 4.1 g/dL (2.2-4.2); Glucose 92 mg/dL (74-106); Potassium 3.6 mmol/L (3.5-5.1); Protein, Total 6.5 g/dL (6.4-8.2); Sodium Level 139 mmol/L (136-145)
--- NOTE | 2022-09-20 12:00 | CASEMGMT ---
Complex Piano Professor met with pt while receiving Albumin. Pt's dtr was in the room as well. Navigator provided information for uninsured. Pt could not recall if she has contacted the [facility] yet. Navigator encouraged pt to do so. D/t pt's Citizenship status and being uninsured, none of the facilities contacted ([facility], [facility], [facility]) will assist with a transplant. Per JFS, pt does not qualify for insurance unless she is a Citizen, has a Green Card, or has a Visa Card. Marlee, with the [facility], said the pt can call and she will at least see if they can assist in any way. Navigator reminded pt of this.?
[2022-09-20 15:00] VITALS: BP 101/65; BP 103/58; BP 111/69; BP 98/59; PULSE 100; PULSE 101; PULSE 90; PULSE 94; RESP 16; TEMP 36.6; O2SAT 96; O2SAT 97
[2022-09-20 15:04] VITALS: BP 92/53; PULSE 90; RESP 14; TEMP 36.7; O2SAT 100
[2022-09-20 16:53] LABS: Absolute Lymphocyte Count 0.76 X10^3/uL (0.83-4.51); Basophil# 0.01 X10^3/uL; Basophil% 0.5 % (0-1); Eosinophils% 4.6 % (0-5); Hematocrit 30.3 % (37-47); Hemoglobin 9.4 g/dL (12.0-15.0); Lymphocyte # 0.76 X10^3/ul (0.83-4.51); Lymphocyte % 35.2 % (19-41); Mean Corpuscular Hgb 26.9 pg (27.0-32.0); Mean Corpuscular Volume 86.8 fL (81-99); Mean Platelet Vol. 9.5 fl (6.2-12.0); Monocyte# 0.31 X10^3/uL; Monocyte% 14.4 % (0-10); NRBC Flagged by Analyzer 0 % (0-5); Neutrophil # 0.98 X10^3/uL (2.7-7.7); Neutrophil % 45.3 % (47-70); POSITIVE COUNT YES; POSITIVE DIFFERENTIAL YES; Platelet Count 87 K/mm3 (150-450); RBC Distribution Width CV 17.9 % (11.6-14.6); RBC Distribution Width SD 57.3 fl (35.1-43.9); Red Blood Count 3.49 M/mm3 (4.2-5.4); White Blood Count 2.2 K/mm3 (4.4-11.0)
[2022-09-20 17:20] LABS: Differential Indicated SCAN CRITERIA MET
[2022-09-20 17:21] LABS: Differential Comment SCANNED; Hypochromasia 1+
[2022-09-20 17:22] LABS: Erythrocyte Sedimentation Rate 3 mm/hr (0-30)
[2022-09-20 17:39] LABS: ALB/GLOB Ratio 0.9 RATIO (0.9-2.4); AST(SGOT) 24 U/L (15-37); Alanine Aminotransfer ALT/SGPT 19 U/L (13-56); Albumin, Serum 2.8 g/dL (3.2-5.0); Alkaline Phosphatase 127 U/L (45-117); Anion Gap 2 (5-15); BUN 17 mg/dL (7-18); BUN/Creat Ratio 24.7 RATIO (10-20); Calcium,Total 7.2 mg/dL (8.5-10.1); Chloride 105 mmol/L (98-107); Creatinine, Serum 0.69 mg/dL (0.55-1.02); EST Glomerular Filtration Rate 92 mL/min (>60); Est Glom Filt Rate - Afr Amer 112 mL/min (>60); Globulin 3.1 g/dL (2.2-4.2); Glucose 129 mg/dL (74-106); Potassium 3.6 mmol/L (3.5-5.1); Protein, Total 5.9 g/dL (6.4-8.2); Sodium Level 140 mmol/L (136-145)
== END | disposition home or self-care (01) ==
PROVIDERS: Nurse Practitioner Adult Health; PCP Family Medicine; Referring Provider Internal Medicine Gastroenterology; Visit Provider Internal Medicine Gastroenterology
DX: K74.60 Unspecified cirrhosis of liver (principal); R18.8 Other ascites; K75.81 Nonalcoholic steatohepatitis (NASH); J90 Pleural effusion, not elsewhere classified; A15.9 Respiratory tuberculosis unspecified
CPT/HCPCS: 96365; 96366 ×2; 36415; 49083; 71046; 80053; 85025; 85610; 85652; 86140; J7050; P9047

== ENCOUNTER → 2022-09-29 | Outpatient (CLI) | payer SELFPAY | END | disposition home or self-care (01) | LOC: LAB 09:34 | PROVIDERS: PCP Family Medicine | DX: A15.9 Respiratory tuberculosis unspecified (principal) | CPT/HCPCS: 87015; 87116; 87206 ==

== ENCOUNTER → 2022-09-29 | Outpatient (CLI) | payer SELFPAY ==
--- NOTE | 2022-09-29 09:54 | US_ITS ---
PROCEDURE: Ultrasound guided paracentesis. DATE OF EXAMINATION: 09/29/2022.. INDICATION: Female, 62 years old. Ascites. PHYSICIAN: Valeriano Hull M.D. TECHNIQUE: The risks, benefits, and alternatives to the procedure were explained to the patient. The specific risks of bleeding, infection, and damage to bowel were detailed and accepted. Witnessed informed consent was obtained. The abdomen was ultrasonographically surveyed. An appropriate pocket of fluid was identified at the left lower quadrant. The skin were cleaned and prepped in the usual sterile fashion. Using ultrasound guidance, the peritoneal cavity was accessed with a 5-Djiboutian paracentesis needle/catheter system. The trocar was removed. A total of 8950 ml of willis-colored fluid were removed from the peritoneal cavity. The catheter was removed and a sterile dressing was applied. The procedure was well tolerated. US/Paracentesis with US IMPRESSION: Ultrasound guided paracentesis. Electronically Signed: Valeriano Hull MD at 11:47 EST ,
[2022-09-29 10:05] VITALS: BP 107/63; BP 108/65; BP 93/59; BP 96/55; BP 99/57; PULSE 102; PULSE 103; PULSE 105; PULSE 94; RESP 16; RESP 18; TEMP 36.7; O2SAT 96; O2SAT 97; O2SAT 98
[2022-09-29] MEDS: Lidocaine 2% (10 ml mdv) 10 ML Vial INFILT (10:12)
[2022-09-29] MEDS: Albumin Human 25% (100 mL) 25 GM/100 ML BAG IV ×2 (11:36→13:05)
[2022-09-29] MEDS: 0.9% Saline Lock 10 ML Syringe IV (11:36)
[2022-09-29 12:26] VITALS: BP 91/44; PULSE 80; RESP 16; TEMP 36.5; O2SAT 99
[2022-09-29 14:39] VITALS: BP 85/47; PULSE 90
== END | disposition home or self-care (01) ==
LOC: US 09:53
PROVIDERS: PCP Family Medicine; Referring Provider Internal Medicine Gastroenterology; Visit Provider Internal Medicine Gastroenterology
DX: K75.81 Nonalcoholic steatohepatitis (NASH) (principal); R18.8 Other ascites
CPT/HCPCS: 49083; J7050; P9046; A4216; P9047

== ENCOUNTER → 2022-10-05 | Outpatient (CLI) | payer SELFPAY ==
--- NOTE | 2022-10-05 09:57 | US_ITS ---
PROCEDURE: Ultrasound guided paracentesis. DATE OF EXAMINATION: 10/05/2022. INDICATION: Female, 62 years old. Ascites. PHYSICIAN: Valeriano Hull M.D. TECHNIQUE: The risks, benefits, and alternatives to the procedure were explained to the patient. The specific risks of bleeding, infection, and damage to bowel were detailed and accepted. Witnessed informed consent was obtained. The abdomen was ultrasonographically surveyed. An appropriate pocket of fluid was identified at the right lower quadrant. The skin were cleaned and prepped in the usual sterile fashion. Using ultrasound guidance, the peritoneal cavity was accessed with a 5-Ghanaian paracentesis needle/catheter system. The trocar was removed. A total of 5300 ml of willis-colored fluid were removed from the peritoneal cavity. The catheter was removed and a sterile dressing was applied. The procedure was well tolerated. US/Paracentesis with US IMPRESSION: Ultrasound guided paracentesis. Electronically Signed: Valeriano Hull MD at 12:28 EST ,
[2022-10-05 10:43] VITALS: BP 101/56; BP 102/54; BP 98/53; BP 99/49; PULSE 86; PULSE 87; RESP 16; RESP 18; TEMP 37.2; O2SAT 97; O2SAT 98
[2022-10-05] MEDS: Lidocaine 2% (10 ml mdv) 10 ML Vial INFILT (10:45)
[2022-10-05 11:44] VITALS: BP 100/60; PULSE 86; RESP 14; TEMP 37.1; O2SAT 98
[2022-10-05] MEDS: Albumin Human 25% (100 mL) 25 GM/100 ML BAG IV (11:50)
[2022-10-05] MEDS: 0.9% Saline Lock 10 ML Syringe IV ×2 (11:50→11:54)
[2022-10-05 11:54] LABS: Absolute Neutrophil Count 1.4 X10^3/uL (2.0-7.7); Basophil# 0.01 X10^3/uL; Basophil% 0.4 % (0-1); Eosinophil# 0.07 X10^3/uL; Eosinophils% 2.7 % (0-5); Hematocrit 36.5 % (37-47); Hemoglobin 11.7 g/dL (12.0-15.0); Lymphocyte % 23.1 % (19-41); Mean Corp Hgb Conc 32.1 g/dL (32-36); Mean Corpuscular Hgb 27.7 pg (27.0-32.0); Mean Corpuscular Volume 86.5 fL (81-99); Mean Platelet Vol. 9.6 fl (6.2-12.0); Monocyte# 0.49 X10^3/uL; Monocyte% 18.8 % (0-10); NRBC Flagged by Analyzer 0 % (0-5); Neutrophil # 1.42 X10^3/uL (2.7-7.7); Neutrophil % 54.6 % (47-70); POSITIVE COUNT YES; POSITIVE DIFFERENTIAL YES; Platelet Count 54 K/mm3 (150-450); RBC Distribution Width SD 53.2 fl (35.1-43.9); Red Blood Count 4.22 M/mm3 (4.2-5.4); White Blood Count 2.6 K/mm3 (4.4-11.0)
[2022-10-05 12:01] LABS: Differential Indicated SCAN CRITERIA MET
[2022-10-05 12:17] LABS: ALB/GLOB Ratio 0.7 RATIO (0.9-2.4); AST(SGOT) 31 U/L (15-37); Alanine Aminotransfer ALT/SGPT 17 U/L (13-56); Albumin, Serum 2.6 g/dL (3.2-5.0); Alkaline Phosphatase 191 U/L (45-117); Anion Gap 4 (5-15); BUN 12 mg/dL (7-18); BUN/Creat Ratio 21.5 RATIO (10-20); Calcium,Total 7.4 mg/dL (8.5-10.1); Chloride 106 mmol/L (98-107); Creatinine, Serum 0.56 mg/dL (0.55-1.02); EST Glomerular Filtration Rate 117 mL/min (>60); Est Glom Filt Rate - Afr Amer 142 mL/min (>60); Globulin 3.5 g/dL (2.2-4.2); Glucose 115 mg/dL (74-106); Potassium 3.8 mmol/L (3.5-5.1); Protein, Total 6.1 g/dL (6.4-8.2); Sodium Level 139 mmol/L (136-145)
[2022-10-05 12:19] LABS: Differential Comment SCANNED
[2022-10-05 12:20] LABS: Platelet Estimate MKD DEC (ADEQ)
[2022-10-05 13:29] VITALS: BP 102/54; PULSE 82
[2022-10-06 12:05] LABS: Pathologist Review Reviewed
== END | disposition home or self-care (01) ==
PROVIDERS: PCP Family Medicine; Referring Provider Internal Medicine Gastroenterology; Visit Provider Internal Medicine Gastroenterology
DX: R18.8 Other ascites (principal); K75.81 Nonalcoholic steatohepatitis (NASH)
CPT/HCPCS: 49083; 80053; 85025; J7050; P9046; P9047

== ENCOUNTER → 2022-10-12 | Outpatient (CLI) | payer SELFPAY ==
--- NOTE | 2022-10-12 10:17 | US_ITS ---
PROCEDURE: Ultrasound guided paracentesis. DATE OF EXAMINATION: 10/12/2022. INDICATION: Female, 62 years old. Ascites. PHYSICIAN: Valeriano Hull M.D. TECHNIQUE: The risks, benefits, and alternatives to the procedure were explained to the patient. The specific risks of bleeding, infection, and damage to bowel were detailed and accepted. Witnessed informed consent was obtained. The abdomen was ultrasonographically surveyed. An appropriate pocket of fluid was identified at the left lower quadrant. The skin were cleaned and prepped in the usual sterile fashion. Using ultrasound guidance, the peritoneal cavity was accessed with a 5-Yi paracentesis needle/catheter system. The trocar was removed. A total of 4400 ml of willis-colored fluid were removed from the peritoneal cavity. The catheter was removed and a sterile dressing was applied. The procedure was well tolerated. US/Paracentesis with US IMPRESSION: Ultrasound guided paracentesis. Electronically Signed: Valeriano Hull MD at 12:27 EST ,
[2022-10-12] MEDS: Lidocaine 1% (20 ml mdv) 20 ML Vial INFILT (10:35)
[2022-10-12 10:38] VITALS: BP 100/60; BP 101/65; PULSE 103; PULSE 109; RESP 16; O2SAT 96; O2SAT 98
[2022-10-12 11:23] LABS: Absolute Lymphocyte Count 0.98 X10^3/uL (0.83-4.51); Absolute Neutrophil Count 1.6 X10^3/uL (2.0-7.7); Basophil# 0.01 X10^3/uL; Basophil% 0.3 % (0-1); Eosinophils% 3.2 % (0-5); Hematocrit 37.6 % (37-47); Hemoglobin 11.9 g/dL (12.0-15.0); Lymphocyte # 0.98 X10^3/ul (0.83-4.51); Lymphocyte % 30.9 % (19-41); Mean Corp Hgb Conc 31.6 g/dL (32-36); Mean Corpuscular Hgb 27.4 pg (27.0-32.0); Mean Corpuscular Volume 86.4 fL (81-99); Mean Platelet Vol. 10.3 fl (6.2-12.0); Monocyte# 0.42 X10^3/uL; Monocyte% 13.2 % (0-10); NRBC Flagged by Analyzer 0 % (0-5); Neutrophil # 1.64 X10^3/uL (2.7-7.7); Neutrophil % 51.8 % (47-70); Platelet Count 111 K/mm3 (150-450); RBC Distribution Width CV 16.3 % (11.6-14.6); RBC Distribution Width SD 51.5 fl (35.1-43.9); Red Blood Count 4.35 M/mm3 (4.2-5.4); White Blood Count 3.2 K/mm3 (4.4-11.0)
[2022-10-12 11:50] LABS: ALB/GLOB Ratio 0.7 RATIO (0.9-2.4); AST(SGOT) 28 U/L (15-37); Alanine Aminotransfer ALT/SGPT 16 U/L (13-56); Albumin, Serum 2.6 g/dL (3.2-5.0); Alkaline Phosphatase 150 U/L (45-117); Anion Gap 5 (5-15); BUN 11 mg/dL (7-18); BUN/Creat Ratio 18.8 RATIO (10-20); Calcium,Total 7.6 mg/dL (8.5-10.1); Chloride 106 mmol/L (98-107); Creatinine, Serum 0.58 mg/dL (0.55-1.02); EST Glomerular Filtration Rate 112 mL/min (>60); Est Glom Filt Rate - Afr Amer 135 mL/min (>60); Globulin 3.6 g/dL (2.2-4.2); Glucose 86 mg/dL (74-106); Potassium 3.9 mmol/L (3.5-5.1); Protein, Total 6.2 g/dL (6.4-8.2); Sodium Level 138 mmol/L (136-145)
== END | disposition home or self-care (01) ==
PROVIDERS: PCP Family Medicine; Referring Provider Internal Medicine Gastroenterology; Visit Provider Internal Medicine Gastroenterology
DX: R18.8 Other ascites (principal); Z22.7 Latent tuberculosis
CPT/HCPCS: 49083; 80053; 85025; A4216

== ENCOUNTER 2022-10-19 10:47 | Outpatient (RCR) | payer SELFPAY ==
[2022-10-19 11:07] LABS: Absolute Lymphocyte Count 1.03 X10^3/uL (0.83-4.51); Absolute Neutrophil Count 1.6 X10^3/uL (2.0-7.7); Basophil# 0.01 X10^3/uL; Basophil% 0.3 % (0-1); Eosinophil# 0.11 X10^3/uL; Eosinophils% 3.4 % (0-5); Hematocrit 36.3 % (37-47); Hemoglobin 11.3 g/dL (12.0-15.0); Lymphocyte # 1.03 X10^3/ul (0.83-4.51); Lymphocyte % 32.1 % (19-41); Mean Corp Hgb Conc 31.1 g/dL (32-36); Mean Corpuscular Hgb 27.3 pg (27.0-32.0); Mean Corpuscular Volume 87.7 fL (81-99); Mean Platelet Vol. 9.9 fl (6.2-12.0); Monocyte# 0.46 X10^3/uL; Monocyte% 14.3 % (0-10); NRBC Flagged by Analyzer 0 % (0-5); Neutrophil % 49.9 % (47-70); Platelet Count 118 K/mm3 (150-450); RBC Distribution Width CV 16.2 % (11.6-14.6); RBC Distribution Width SD 52.1 fl (35.1-43.9); Red Blood Count 4.14 M/mm3 (4.2-5.4); White Blood Count 3.2 K/mm3 (4.4-11.0)
[2022-10-19 11:54] LABS: ALB/GLOB Ratio 0.6 RATIO (0.9-2.4); AST(SGOT) 33 U/L (15-37); Alanine Aminotransfer ALT/SGPT 21 U/L (13-56); Albumin, Serum 2.2 g/dL (3.2-5.0); Alkaline Phosphatase 180 U/L (45-117); Anion Gap 3 (5-15); BUN 12 mg/dL (7-18); BUN/Creat Ratio 21.2 RATIO (10-20); Calcium,Total 7.1 mg/dL (8.5-10.1); Chloride 107 mmol/L (98-107); Creatinine, Serum 0.57 mg/dL (0.55-1.02); EST Glomerular Filtration Rate 116 mL/min (>60); Est Glom Filt Rate - Afr Amer 140 mL/min (>60); Globulin 3.4 g/dL (2.2-4.2); Glucose 112 mg/dL (74-106); Potassium 4.2 mmol/L (3.5-5.1); Protein, Total 5.6 g/dL (6.4-8.2); Sodium Level 138 mmol/L (136-145)
== END 2022-10-19 18:00 | disposition home or self-care (01) ==
LOC: LAB 10:47
PROVIDERS: PCP Family Medicine
DX: Z22.7 Latent tuberculosis (principal)
CPT/HCPCS: 36415; 80053; 85025

== ENCOUNTER → 2022-10-19 | Outpatient (CLI) | payer SELFPAY ==
--- NOTE | 2022-10-19 10:23 | US_ITS ---
STUDY: ABDOMINAL ULTRASOUND - 4 quadrants. REASON FOR VISIT: Female, 62 years old ASCITES TECHNIQUE: Ultrasound evaluation of the 4 quadrants was performed with real-time and static novak-scale imaging. TECHNICAL QUALITY: Adequate. COMPARISON: None. FINDINGS: Imaging of the 4 quadrants was obtained. Not enough ascitic fluid for safe paracentesis. US/Abdomen Limited IMPRESSION: Not enough ascitic fluid for safe paracentesis. Electronically Signed: Valeriano Hull MD at 14:28 EST ,
== END | disposition home or self-care (01) ==
PROVIDERS: PCP Family Medicine; Referring Provider Internal Medicine Gastroenterology; Visit Provider Internal Medicine Gastroenterology
DX: K75.81 Nonalcoholic steatohepatitis (NASH) (principal); R18.8 Other ascites; Z22.7 Latent tuberculosis; Z53.09 Procedure and treatment not carried out because of other contraindication
CPT/HCPCS: 49083; 76705

== ENCOUNTER → 2022-10-26 | Outpatient (CLI) | payer SELFPAY ==
--- NOTE | 2022-10-26 10:09 | US_ITS ---
PROCEDURE: Ultrasound guided paracentesis. DATE OF EXAMINATION: 10/26/2022. INDICATION: Female, 62 years old. Ascites. PHYSICIAN: Rafita Luis DO TECHNIQUE: The risks, benefits, and alternatives to the procedure were explained to the patient''s daughter who translated for the patient as patient does not speak Uzbek. The specific risks of bleeding, infection, and damage to bowel were detailed and accepted. Witnessed informed consent was obtained. The abdomen was ultrasonographically surveyed. An appropriate pocket of fluid was identified at the right lower quadrant. The skin were cleaned and prepped in the usual sterile fashion. Using ultrasound guidance, the peritoneal cavity was accessed with a 5-Sami paracentesis needle/catheter system. The trocar was removed. A total of 6100 ml of clear straw-colored ascites fluid was removed from the peritoneal cavity. The catheter was removed and a sterile dressing was applied. The procedure was well tolerated. The patient was discharged in stable condition. US/Paracentesis with US IMPRESSION: Ultrasound guided therapeutic paracentesis. Electronically Signed: Rafita Luis, at 12:05 EST ,
[2022-10-26 10:41] VITALS: BP 102/53; BP 105/52; BP 106/53; BP 109/59; PULSE 83; PULSE 84; PULSE 88; PULSE 95; PULSE 96; RESP 16; TEMP 36.4; O2SAT 98; O2SAT 99
[2022-10-26] MEDS: Lidocaine 1% (20 ml mdv) 20 ML Vial INFILT (10:46)
[2022-10-26 11:43] LABS: Absolute Neutrophil Count 1.7 X10^3/uL (2.0-7.7); Basophil# 0.01 X10^3/uL; Basophil% 0.3 % (0-1); Eosinophil# 0.11 X10^3/uL; Eosinophils% 3.3 % (0-5); Hematocrit 34.1 % (37-47); Hemoglobin 11.1 g/dL (12.0-15.0); Mean Corp Hgb Conc 32.6 g/dL (32-36); Mean Corpuscular Volume 86.1 fL (81-99); Mean Platelet Vol. 10.4 fl (6.2-12.0); NRBC Flagged by Analyzer 0 % (0-5); Neutrophil % 51.1 % (47-70); POSITIVE COUNT YES; Platelet Count 85 K/mm3 (150-450); RBC Distribution Width CV 16.5 % (11.6-14.6); Red Blood Count 3.96 M/mm3 (4.2-5.4); White Blood Count 3.3 K/mm3 (4.4-11.0)
[2022-10-26] MEDS: 0.9% Saline Lock 10 ML Syringe IV (12:05)
[2022-10-26 12:07] LABS: ALB/GLOB Ratio 0.7 RATIO (0.9-2.4); AST(SGOT) 45 U/L (15-37); Alanine Aminotransfer ALT/SGPT 24 U/L (13-56); Albumin, Serum 2.3 g/dL (3.2-5.0); Alkaline Phosphatase 205 U/L (45-117); Anion Gap 3 (5-15); BUN 17 mg/dL (7-18); BUN/Creat Ratio 31.5 RATIO (10-20); Calcium,Total 7.4 mg/dL (8.5-10.1); Chloride 109 mmol/L (98-107); Creatinine, Serum 0.54 mg/dL (0.55-1.02); EST Glomerular Filtration Rate 122 mL/min (>60); Est Glom Filt Rate - Afr Amer 148 mL/min (>60); Globulin 3.5 g/dL (2.2-4.2); Glucose 94 mg/dL (74-106); Potassium 4.3 mmol/L (3.5-5.1); Protein, Total 5.8 g/dL (6.4-8.2); Sodium Level 139 mmol/L (136-145)
[2022-10-26] MEDS: Albumin Human 25% (100 mL) 25 GM/100 ML BAG IV (12:16)
[2022-10-26 12:17] VITALS: BP 99/51; PULSE 93; RESP 14; TEMP 36.4; O2SAT 96
[2022-10-26] MEDS: Albumin Human 25% (50 mL) 12.5 GM/50 ML IV.SOLN IV (13:42)
[2022-10-26 14:43] VITALS: BP 100/57; PULSE 107; RESP 16; O2SAT 93
== END | disposition home or self-care (01) ==
LOC: US 10:08
PROVIDERS: PCP Family Medicine; Referring Provider Internal Medicine Gastroenterology; Visit Provider Internal Medicine Gastroenterology
DX: K75.81 Nonalcoholic steatohepatitis (NASH) (principal); R18.8 Other ascites
CPT/HCPCS: 96365; 96366 ×2; 49083; 80053; 85025; P9046; P9047; A4216

== ENCOUNTER → 2022-11-02 | Outpatient (CLI) | payer SELFPAY ==
--- NOTE | 2022-11-02 08:02 | US_ITS ---
PROCEDURE: Ultrasound guided paracentesis. DATE OF EXAMINATION: 11/02/2022. INDICATION: Female, 62 years old. Ascites. PHYSICIAN: Valeriano Hull M.D. TECHNIQUE: The risks, benefits, and alternatives to the procedure were explained to the patient. The specific risks of bleeding, infection, and damage to bowel were detailed and accepted. Witnessed informed consent was obtained. The abdomen was ultrasonographically surveyed. An appropriate pocket of fluid was identified at the right lower quadrant. The skin were cleaned and prepped in the usual sterile fashion. Using ultrasound guidance, the peritoneal cavity was accessed with a 5-Singaporean paracentesis needle/catheter system. The trocar was removed. A total of 5950 ml of willis-colored fluid were removed from the peritoneal cavity. The catheter was removed and a sterile dressing was applied. The procedure was well tolerated. US/Paracentesis with US IMPRESSION: Ultrasound guided paracentesis. Electronically Signed: Valeriano Hull MD at 9:13 EST ,
[2022-11-02 08:14] VITALS: BP 91/54; BP 93/69; BP 97/56; PULSE 82; PULSE 93; RESP 18; TEMP 36.7; O2SAT 96; O2SAT 97; O2SAT 98
[2022-11-02] MEDS: Lidocaine 1% (20 ml mdv) 20 ML Vial INFILT (08:20)
[2022-11-02 09:19] VITALS: BP 89/53; PULSE 69; RESP 16; TEMP 36.2; O2SAT 99
[2022-11-02 09:19] LABS: Absolute Lymphocyte Count 1.31 X10^3/uL (0.83-4.51); Absolute Neutrophil Count 1.7 X10^3/uL (2.0-7.7); Basophil# 0.01 X10^3/uL; Basophil% 0.3 % (0-1); Eosinophil# 0.15 X10^3/uL; Eosinophils% 4.2 % (0-5); Hematocrit 34.5 % (37-47); Hemoglobin 10.7 g/dL (12.0-15.0); Lymphocyte # 1.31 X10^3/ul (0.83-4.51); Mean Corpuscular Hgb 27.1 pg (27.0-32.0); Mean Corpuscular Volume 87.3 fL (81-99); Mean Platelet Vol. 12.4 fl (6.2-12.0); Monocyte# 0.39 X10^3/uL; NRBC Flagged by Analyzer 0 % (0-5); Neutrophil # 1.67 X10^3/uL (2.7-7.7); Neutrophil % 47.2 % (47-70); POSITIVE COUNT YES; Platelet Count 58 K/mm3 (150-450); RBC Distribution Width CV 16.6 % (11.6-14.6); RBC Distribution Width SD 53.2 fl (35.1-43.9); Red Blood Count 3.95 M/mm3 (4.2-5.4); White Blood Count 3.5 K/mm3 (4.4-11.0)
[2022-11-02] MEDS: Albumin Human 25% (100 mL) 25 GM/100 ML BAG IV (09:22)
[2022-11-02] MEDS: 0.9% Saline Lock 10 ML Syringe IV (09:26)
[2022-11-02 09:34] LABS: ALB/GLOB Ratio 0.7 RATIO (0.9-2.4); AST(SGOT) 45 U/L (15-37); Alanine Aminotransfer ALT/SGPT 25 U/L (13-56); Albumin, Serum 2.2 g/dL (3.2-5.0); Alkaline Phosphatase 189 U/L (45-117); Anion Gap 2 (5-15); BUN 14 mg/dL (7-18); BUN/Creat Ratio 24.2 RATIO (10-20); Calcium,Total 7.1 mg/dL (8.5-10.1); Chloride 110 mmol/L (98-107); Creatinine, Serum 0.58 mg/dL (0.55-1.02); EST Glomerular Filtration Rate 113 mL/min (>60); Est Glom Filt Rate - Afr Amer 137 mL/min (>60); Globulin 3.3 g/dL (2.2-4.2); Glucose 109 mg/dL (74-106); Potassium 4.2 mmol/L (3.5-5.1); Protein, Total 5.5 g/dL (6.4-8.2); Sodium Level 140 mmol/L (136-145)
[2022-11-02] MEDS: Albumin Human 25% (50 mL) 12.5 GM/50 ML IV.SOLN IV (10:49)
[2022-11-02 11:59] VITALS: BP 82/43; PULSE 82; TEMP 36.7; O2SAT 100
== END | disposition home or self-care (01) ==
LOC: US 07:50
PROVIDERS: PCP Family Medicine; Referring Provider Internal Medicine Gastroenterology; Visit Provider Internal Medicine Gastroenterology
DX: R18.8 Other ascites (principal); K75.81 Nonalcoholic steatohepatitis (NASH)
CPT/HCPCS: 49083; 80053; 85025; J7050; P9047; A4216

== ENCOUNTER 2022-11-06 08:55 | Day surgery (SDC) | payer SELFPAY ==
[2022-11-06] VITALS (7 sets, daily range): BP systolic 95–113; BP diastolic 52–77; PULSE 86–106; RESP 16–17; TEMP 36.4–37.3; O2SAT 96–99; BMI 30.2
--- NOTE | 2022-11-06 09:08 | PCM.HP.BLA ---
History and Physical Date of Admission: 11/06/22 62 F who presents to the office today for f/u EGD during which non-bleeding esophageal varices were banded. She has HARRISON-related cirrhosis. She is accompanied by her daughter who acts as infection prevention coordinator. She has a standing order for paracentesis but had difficulty making an appt; our Slovenian-speaking PROGRAM PROPOSALS COORDINATOR reviewed that process with them; they will call again to schedule paracentesis since she is having a lot of discomfort due to abdominal ascites. She has been taking ibuprofen for abd pain. She had increased epigastric pain after her EGD. She continues to emmanuel lactulose BID. BP too low to tolerate beta nathan. She had AFP sputum test done at [facility] about 3 wks ago, asks for results, we will track those down. The [employer] was needed for her to see ID for treatment of latent TB.? HARRISON-related cirrhosis.? She continues to take furosemide 40 mg BID, spironolactone 50 mg daily.? She denies jaundice.? She denies pruritus.? She has not had any bruising or bleeding, no hematemesis, hematuria, hematochezia or melena.? She denies any confusion or forgetfulness.? She is sleeping well at night.? She takes a 1 hour nap during the day.? She feels awake and alert throughout the day otherwise.? She takes lactulose twice a day.? She has 5 bowel movements per day, this is formed stool not diarrhea.? She has been diagnosed with tuberculosis.? She was seen by the pulmonology department here, they referred her to infectious disease Dr. Li. Madhavi established with this clinic through hospitalization with [facility]. She presented to [facility] ED 12.22.21 with epigastric and RUQ abdominal pain without exacerbating or alleviating factors. Admitted to treat acute appendicitis and acute cholecystitis. Incidentally, it was found that she has cirrhosis of the liver during ED workup. Underwent cholecystectomy 12.22.21. Gastroenterology was consulted 12.22.21 for new diagnosis of HARRISON cirrhosis with ascites. MELD at consultation 22 with noted decompensation r/t acute cholecystitis. She was started on Xifaxan 550mg BID for hepatic encephalopathy with lactulose 20mg QD, ursodiol 550mg Lasix 20mg and Aldactone 12.5mg QD. She was discharged 12.24.21. CT abd/pel 12.22.21 found decreased liver size with cirrhotic changes; perihepatic fluid; splenomegaly; gallbladder distention; diffuse thickening of gastric wall; colonic diverticula; increased marking within mesenteric fat; shift of heart and mediastinal structures toward right hemithorax; small right pleural effusion. US gallbladder 12.22.21 found liver measurement 14.1 with heterogeneous echogenicity of the liver without mass or lesion; gallbladder markedly distended with thickened wall and positive sonographic Mock?s sign and pericholecystic fluid and gallstones. [facility] ED presentation .12.20 for increasing abdominal ascites following laparoscopic cholecystectomy 2-3 weeks prior. Paracentesis performed with 1050mL fluid removed; cytology without abnormal finding. MELD Scores: 11/2021 22 04/2022 14 07/10/22 EGD Impression: ? - Non-bleeding grade III esophageal varices. ? Incompletely eradicated. Banded. ? - Type 1 gastroesophageal varices (GOV1, ? esophageal varices which extend along the ? lesser curvature), without bleeding. ? - Normal first portion of the duodenum. ? - No specimens collected. ROS Const Constitutional: No fatigue ENT ENT: No difficulty swallowing Gastro GI: No abdominal pain, belching, bloating, change in bowel habits, change in stool character, coffee ground emesis, constipation, cramping, diarrhea, heartburn, difficulty swallowing, feeling full early, excessive flatus, incontinent of stools, Vomiting blood/hematemesis, Blood in stool, loose stools, Black,tarry stools, nausea/dyspepsia, pain with swallowing, vomiting or other Musc Musculoskeletal: Positive for muscle weakness and leg pain at night; No joint pain Skin Skin: No yellowing of the eye or itchy eyes Psych Psychiatric: No anxiety and No depression Endo Endocrine: No fatigue Aller/Imm Allergy/Immunologic: No itchy eyes [facility]/Lymp Hematologic/Lymphatic: No easy bleeding or easy bruising Exam Const General: cooperative, comfortable and no acute distress Nutritional Appearance: obese Orientation: alert, awake and oriented x3 HENMT Head: normal to inspection Eyes General: appearance normal, both eyes and all related structures Resp Effort & Inspection: normal respiratory effort GI Inspection: distended and obesity Palpation: no masses, nontender and ascites Skin General: no jaundice Quality Reporting Tobacco Screening ([facility]) Smoking Status: Never smoker Assessment and Plan Assessment and Plan (1) 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: ?Status:?Acute ?Plan: We reviewed recent EGD, banded varices Refill lactulose, continue BID Continue furosemide and spironolactone Hold off still on beta nathan due to low BP; if necessary we could use midodrine plus beta nathan for varices Repeat EGD in 3 months Start pantoprazole for upper abd pain; if too expensive then get OTC omeprazole We will request sputum result from [facility] Discussed with pt and daughter that they need to call radiology to schedule paracentesis, she has a standing order Stop the ibuprofen that she was taking for abd pain, cautioned no NSAIDS, it is ok to take max 2000 mg daily of acetaminophen (she reports hx abd pain from APAP) Update labs for MELD f/u 2 wks after next EGD ? ? ? Orders: Orders Ammonia Today K74.60 - Unspecified cirrhosis of liver, K75.81 - Nonalcoholic steatohepatitis (HARRISON) ? CBC W/Diff, Automated Today K74.60 - Unspecified cirrhosis of liver, K75.81 - Nonalcoholic steatohepatitis (HARRISON) ? Comprehensive Metabolic Profil Today K74.60 - Unspecified cirrhosis of liver, K75.81 - Nonalcoholic steatohepatitis (HARRISON) ? Prothrombin Time w/INR Today K74.60 - Unspecified cirrhosis of liver, K75.81 - Nonalcoholic steatohepatitis (HARRISON) ? LDH Today K74.60 - Unspecified cirrhosis of liver, K75.81 - Nonalcoholic steatohepatitis (HARRISON) ? Medications: New pantoprazole 40 mg? PO DAILY 30 tabs 5RF ? ? Refilled lactulose 20 grams (30 mL) PO BID 3,000 mL 5RF ? ? lactulose 20 grams (30 mL) PO BID 3,000 mL 5RF ? ? I have examined the patient and the H&P has been reviewed. There are no clinical changes since date of exam.
[2022-11-06] MEDS: Lactated Ringers 1,000 ML 15 ML IV (09:15)
--- NOTE | 2022-11-06 10:11 | OP.EGD_ITS ---
Patient Name: Madhavi Avalos Procedure Date: 11/06/2022 9:42 AM Date of : 1960 Age: 62 Procedure: Upper GI endoscopy Indications: 2nd degree variceal eradication (following bleed) Providers: Terry Estrada DO Referring MD: Darlene Garibay Medicines: Monitored Anesthesia Care Patient Profile: This is a 62 year old female. Refer to note in patient chart for documentation of history and physical. Patient has symptoms of chronic dysphagia. Complications: No immediate complications. Procedure: Pre-Anesthesia Assessment: - Prior to the procedure, a History and Physical was performed, and patient medications and allergies were reviewed. The patient is competent. The risks and benefits of the procedure and the sedation options and risks were discussed with the patient. All questions were answered and informed consent was obtained. Patient identification and proposed procedure were verified by the physician in the pre-procedure area. Mental Status Examination: alert and oriented. Airway Examination: normal oropharyngeal airway and neck mobility. Respiratory Examination: clear to auscultation. CV Examination: normal. Prophylactic Antibiotics: The patient does not require prophylactic antibiotics. Prior Anticoagulants: The patient has taken no previous anticoagulant or antiplatelet agents. ASA Grade Assessment: III - A patient with severe systemic disease. After reviewing the risks and benefits, the patient was deemed in satisfactory condition to undergo the procedure. The anesthesia plan was to use monitored anesthesia care (MAC). Immediately prior to administration of medications, the patient was re-assessed for adequacy to receive sedatives. The heart rate, respiratory rate, oxygen saturations, blood pressure, adequacy of pulmonary ventilation, and response to care were monitored throughout the procedure. The physical status of the patient was re-assessed after the procedure. After obtaining informed consent, the endoscope was passed under direct vision. Throughout the procedure, the patient's blood pressure, pulse, and oxygen saturations were monitored continuously. The gastroscope was introduced through the mouth, and advanced to the second part of duodenum. The upper GI endoscopy was accomplished without difficulty. The patient tolerated the procedure well. Scope In: 9:53:53 AM Scope Out: 10:03:28 AM Total Procedure Duration Time 0 hours 9 minutes 35 seconds Findings: Grade III varices were found in the middle third of the esophagus and in the lower third of the esophagus. They were 5 mm in largest diameter. Three bands were successfully placed with incomplete eradication of varices. Bleeding had stopped at the end of the procedure. A medium amount of food (residue) was found in the gastric body. Moderate portal hypertensive gastropathy was found in the entire examined stomach. The first portion of the duodenum was normal. Impression: - Grade III esophageal varices. Incompletely eradicated. Banded. - A medium amount of food (residue) in the stomach. - Portal hypertensive gastropathy. - Normal first portion of the duodenum. - No specimens collected. Recommendation: - Discharge patient to home. - Resume previous diet. - Continue present medications. Procedure Code(s): --- Professional --- 26994, Esophagogastroduodenoscopy, flexible, transoral; with band ligation of esophageal/gastric varices CPT copyright 2017 [employer]. All rights reserved. The codes documented in this report are preliminary and upon invoice coder review may be revised to meet current compliance requirements. Terry Estrada DO 11/06/2022 10:11:16 AM This report has been signed electronically. Number of Addenda: 0 Note Initiated On: 11/06/2022 9:42 AM
--- NOTE | 2022-11-06 10:12 | OP.CCLET_ITS ---
11/06/2022 Darlene Garibay [id number] [facility] [address] Re : Upper GI endoscopy procedure for Madhavi Avalos Dear Dr. Garibay This procedure was performed on Sunday, November 06, 2022. My impressions and recommendations are as follows: Impressions : - Grade III esophageal varices. Incompletely eradicated. Banded. - A medium amount of food (residue) in the stomach. - Portal hypertensive gastropathy. - Normal first portion of the duodenum. - No specimens collected. Recommendations : - Discharge patient to home. - Resume previous diet. - Continue present medications. My findings are described in the full procedure note, which is enclosed. If I can be of further assistance, please feel free to contact me at . Sincerely, Terry Estrada, 11/06/2022 10:11:16 AM This report has been signed electronically.
== END 2022-11-06 11:04 | disposition home or self-care (01) ==
LOC: EN 09:02 → AC 09:02
PROVIDERS: PCP Family Medicine; Referring Provider Family Medicine; Visit Provider Internal Medicine Gastroenterology
PROC: 0DJ08ZZ Inspection of Upper Intestinal Tract, Via Natural or Artificial Opening Endoscopic (ICD-10-PCS; CPT 43235; principal; 2022-11-06 10:10)
DX: I85.00 Esophageal varices without bleeding (principal); K76.6 Portal hypertension; K74.60 Unspecified cirrhosis of liver; K75.81 Nonalcoholic steatohepatitis (NASH); K31.89 Other diseases of stomach and duodenum
CPT/HCPCS: 43244; J7120; J2405

== ENCOUNTER → 2022-11-08 | Outpatient (CLI) | payer SELFPAY ==
--- NOTE | 2022-11-08 10:14 | US_ITS ---
PROCEDURE: Ultrasound guided paracentesis. DATE OF EXAMINATION: 11/08/2022. INDICATION: Female, 62 years old. Ascites. PHYSICIAN: Valeriano Hull M.D. TECHNIQUE: The risks, benefits, and alternatives to the procedure were explained to the patient. The specific risks of bleeding, infection, and damage to bowel were detailed and accepted. Witnessed informed consent was obtained. The abdomen was ultrasonographically surveyed. An appropriate pocket of fluid was identified at the right lower quadrant. The skin were cleaned and prepped in the usual sterile fashion. Using ultrasound guidance, the peritoneal cavity was accessed with a 5-Nigerien paracentesis needle/catheter system. The trocar was removed. A total of 4050 ml of willis-colored fluid were removed from the peritoneal cavity. The catheter was removed and a sterile dressing was applied. The procedure was well tolerated. US/Paracentesis with US IMPRESSION: Ultrasound guided paracentesis. Electronically Signed: Valeriano Hull MD at 12:41 EST ,
[2022-11-08 11:00] VITALS: BP 107/53; BP 87/54; BP 90/48; BP 91/44; PULSE 73; PULSE 76; PULSE 78; PULSE 84; RESP 18; TEMP 36.8; O2SAT 95; O2SAT 96; O2SAT 98
[2022-11-08] MEDS: Lidocaine 1% (20 ml mdv) 20 ML Vial INFILT (11:27)
[2022-11-08 12:25] LABS: Absolute Lymphocyte Count 0.95 X10^3/uL (0.83-4.51); Absolute Neutrophil Count 1.6 X10^3/uL (2.0-7.7); Basophil# 0.02 X10^3/uL; Basophil% 0.7 % (0-1); Eosinophil# 0.06 X10^3/uL; Hematocrit 34.2 % (37-47); Hemoglobin 10.5 g/dL (12.0-15.0); Lymphocyte # 0.95 X10^3/ul (0.83-4.51); Lymphocyte % 31.6 % (19-41); Mean Corp Hgb Conc 30.7 g/dL (32-36); Mean Corpuscular Hgb 27.1 pg (27.0-32.0); Mean Corpuscular Volume 88.4 fL (81-99); Mean Platelet Vol. 9.9 fl (6.2-12.0); Monocyte# 0.38 X10^3/uL; Monocyte% 12.6 % (0-10); NRBC Flagged by Analyzer 0 % (0-5); Neutrophil # 1.59 X10^3/uL (2.7-7.7); Neutrophil % 52.8 % (47-70); Platelet Count 100 K/mm3 (150-450); RBC Distribution Width SD 55.2 fl (35.1-43.9); Red Blood Count 3.87 M/mm3 (4.2-5.4)
[2022-11-08 12:55] LABS: ALB/GLOB Ratio 0.7 RATIO (0.9-2.4); AST(SGOT) 37 U/L (15-37); Alanine Aminotransfer ALT/SGPT 24 U/L (13-56); Albumin, Serum 2.3 g/dL (3.2-5.0); Alkaline Phosphatase 155 U/L (45-117); Anion Gap 0 (5-15); BUN 12 mg/dL (7-18); BUN/Creat Ratio 20.7 RATIO (10-20); Calcium,Total 7.5 mg/dL (8.5-10.1); Chloride 108 mmol/L (98-107); Creatinine, Serum 0.58 mg/dL (0.55-1.02); EST Glomerular Filtration Rate 113 mL/min (>60); Est Glom Filt Rate - Afr Amer 136 mL/min (>60); Globulin 3.4 g/dL (2.2-4.2); Glucose 95 mg/dL (74-106); Potassium 4.4 mmol/L (3.5-5.1); Protein, Total 5.7 g/dL (6.4-8.2); Sodium Level 139 mmol/L (136-145)
== END | disposition home or self-care (01) ==
PROVIDERS: PCP Family Medicine; Referring Provider Internal Medicine Gastroenterology; Visit Provider Internal Medicine Gastroenterology
DX: R18.8 Other ascites (principal); K75.81 Nonalcoholic steatohepatitis (NASH)
CPT/HCPCS: 49083; 36415; 80053; 85025

== ENCOUNTER → 2022-11-15 | Outpatient (CLI) | payer SELFPAY ==
--- NOTE | 2022-11-15 10:32 | US_ITS ---
PROCEDURE: Ultrasound guided paracentesis. DATE OF EXAMINATION: 11/15/2022. INDICATION: Female, 62 years old. Ascites. PHYSICIAN: Valeriano Hull M.D. TECHNIQUE: The risks, benefits, and alternatives to the procedure were explained to the patient. The specific risks of bleeding, infection, and damage to bowel were detailed and accepted. Witnessed informed consent was obtained. The abdomen was ultrasonographically surveyed. An appropriate pocket of fluid was identified at the left lower quadrant. The skin were cleaned and prepped in the usual sterile fashion. Using ultrasound guidance, the peritoneal cavity was accessed with a 5-Telugu paracentesis needle/catheter system. The trocar was removed. A total of 7000 ml of willis-colored fluid were removed from the peritoneal cavity. The catheter was removed and a sterile dressing was applied. The procedure was well tolerated. US/Paracentesis with US IMPRESSION: Ultrasound guided paracentesis. Electronically Signed: Valeriano Hull MD at 12:18 EST ,
[2022-11-15] MEDS: Lidocaine 2% (20 ml mdv) 20 ML Vial INFILT (10:45)
[2022-11-15 10:51] VITALS: BP 105/60; BP 106/65; BP 96/67; PULSE 107; PULSE 90; PULSE 96; RESP 16; TEMP 36.6; O2SAT 97; O2SAT 98
[2022-11-15] MEDS: 0.9% Saline Lock 10 ML Syringe IV (11:22)
[2022-11-15 11:35] LABS: Absolute Lymphocyte Count 0.93 X10^3/uL (0.83-4.51); Absolute Neutrophil Count 1.7 X10^3/uL (2.0-7.7); Basophil# 0.01 X10^3/uL; Basophil% 0.3 % (0-1); Eosinophil# 0.06 X10^3/uL; Eosinophils% 1.9 % (0-5); Hematocrit 34.8 % (37-47); Hemoglobin 11.1 g/dL (12.0-15.0); Lymphocyte # 0.93 X10^3/ul (0.83-4.51); Lymphocyte % 29.2 % (19-41); Mean Corp Hgb Conc 31.9 g/dL (32-36); Mean Corpuscular Hgb 27.8 pg (27.0-32.0); Mean Platelet Vol. 10.7 fl (6.2-12.0); Monocyte# 0.49 X10^3/uL; Monocyte% 15.4 % (0-10); NRBC Flagged by Analyzer 0 % (0-5); Neutrophil % 53.2 % (47-70); POSITIVE COUNT YES; Platelet Count 88 K/mm3 (150-450); RBC Distribution Width CV 17.5 % (11.6-14.6); RBC Distribution Width SD 56.4 fl (35.1-43.9); White Blood Count 3.2 K/mm3 (4.4-11.0)
[2022-11-15 11:39] LABS: Differential Indicated SCAN CRITERIA MET
[2022-11-15] MEDS: Albumin Human 25% (100 mL) 25 GM/100 ML BAG IV (11:46)
[2022-11-15 11:48] LABS: ALB/GLOB Ratio 0.6 RATIO (0.9-2.4); AST(SGOT) 27 U/L (15-37); Alanine Aminotransfer ALT/SGPT 20 U/L (13-56); Albumin, Serum 2.4 g/dL (3.2-5.0); Alkaline Phosphatase 233 U/L (45-117); Anion Gap 4 (5-15); BUN 18 mg/dL (7-18); BUN/Creat Ratio 23.4 RATIO (10-20); Calcium,Total 7.5 mg/dL (8.5-10.1); Chloride 106 mmol/L (98-107); Creatinine, Serum 0.77 mg/dL (0.55-1.02); EST Glomerular Filtration Rate 81 mL/min (>60); Est Glom Filt Rate - Afr Amer 98 mL/min (>60); Globulin 3.7 g/dL (2.2-4.2); Glucose 92 mg/dL (74-106); Potassium 4.3 mmol/L (3.5-5.1); Protein, Total 6.1 g/dL (6.4-8.2); Sodium Level 137 mmol/L (136-145)
[2022-11-15 12:15] LABS: Platelet Estimate MOD DEC (ADEQ)
[2022-11-15] MEDS: Albumin Human 25% (50 mL) 12.5 GM/50 ML IV.SOLN IV (13:07)
== END | disposition home or self-care (01) ==
LOC: US 10:28
PROVIDERS: PCP Family Medicine; Referring Provider Internal Medicine Gastroenterology; Visit Provider Internal Medicine Gastroenterology
DX: R18.8 Other ascites (principal); K75.81 Nonalcoholic steatohepatitis (NASH)
CPT/HCPCS: 96365; 96366; 49083; 80053; 85025; J7050; P9047; A4216

== ENCOUNTER 2022-11-23 11:22 | Outpatient (RCR) | payer SELFPAY ==
[2022-11-23 12:24] LABS: Absolute Lymphocyte Count 0.81 X10^3/uL (0.83-4.51); Absolute Neutrophil Count 1.5 X10^3/uL (2.0-7.7); Basophil# 0.02 X10^3/uL; Basophil% 0.7 % (0-1); Eosinophil# 0.11 X10^3/uL; Eosinophils% 3.9 % (0-5); Hematocrit 36.6 % (37-47); Hemoglobin 11.8 g/dL (12.0-15.0); Lymphocyte # 0.81 X10^3/ul (0.83-4.51); Lymphocyte % 28.9 % (19-41); Mean Corp Hgb Conc 32.2 g/dL (32-36); Mean Corpuscular Hgb 28.2 pg (27.0-32.0); Mean Corpuscular Volume 87.6 fL (81-99); Mean Platelet Vol. 11.2 fl (6.2-12.0); Monocyte# 0.35 X10^3/uL; Monocyte% 12.5 % (0-10); NRBC Flagged by Analyzer 0 % (0-5); Neutrophil # 1.51 X10^3/uL (2.7-7.7); POSITIVE COUNT YES; Platelet Count 90 K/mm3 (150-450); RBC Distribution Width SD 54.4 fl (35.1-43.9); Red Blood Count 4.18 M/mm3 (4.2-5.4); White Blood Count 2.8 K/mm3 (4.4-11.0)
[2022-11-23 13:49] LABS: ALB/GLOB Ratio 0.7 RATIO (0.9-2.4); AST(SGOT) 26 U/L (15-37); Alanine Aminotransfer ALT/SGPT 18 U/L (13-56); Albumin, Serum 2.4 g/dL (3.2-5.0); Alkaline Phosphatase 156 U/L (45-117); Anion Gap 4 (5-15); BUN 15 mg/dL (7-18); BUN/Creat Ratio 23.4 RATIO (10-20); Calcium,Total 7.5 mg/dL (8.5-10.1); Chloride 106 mmol/L (98-107); Creatinine, Serum 0.64 mg/dL (0.55-1.02); EST Glomerular Filtration Rate 100 mL/min (>60); Est Glom Filt Rate - Afr Amer 121 mL/min (>60); Globulin 3.6 g/dL (2.2-4.2); Glucose 91 mg/dL (74-106); Sodium Level 137 mmol/L (136-145)
== END 2022-11-23 18:00 | disposition home or self-care (01) ==
LOC: LAB 11:22
PROVIDERS: PCP Family Medicine
DX: Z22.7 Latent tuberculosis (principal)
CPT/HCPCS: 36415; 80053; 85025

== ENCOUNTER → 2022-11-23 | Outpatient (CLI) | payer SELFPAY ==
--- NOTE | 2022-11-23 10:16 | US_ITS ---
PROCEDURE: Ultrasound guided paracentesis. DATE OF EXAMINATION: 11/23/2022. INDICATION: Female, 62 years old. Ascites. PHYSICIAN: Valeriano Hull M.D. TECHNIQUE: The risks, benefits, and alternatives to the procedure were explained to the patient. The specific risks of bleeding, infection, and damage to bowel were detailed and accepted. Witnessed informed consent was obtained. The abdomen was ultrasonographically surveyed. An appropriate pocket of fluid was identified at the right lower quadrant. The skin were cleaned and prepped in the usual sterile fashion. Using ultrasound guidance, the peritoneal cavity was accessed with a 5-Puerto Rican paracentesis needle/catheter system. The trocar was removed. A total of 4400 ml of willis-colored fluid were removed from the peritoneal cavity. The catheter was removed and a sterile dressing was applied. The procedure was well tolerated. US/Paracentesis with US IMPRESSION: Ultrasound guided paracentesis. Electronically Signed: Valeriano Hull MD at 12:42 EST ,
[2022-11-23 10:30] VITALS: BP 100/60; BP 109/65; BP 110/66; PULSE 100; PULSE 107; PULSE 108; RESP 16; RESP 18; TEMP 36.4; O2SAT 97; O2SAT 98
[2022-11-23] MEDS: Lidocaine 2% (20 ml mdv) 20 ML Vial INFILT (10:30)
== END | disposition home or self-care (01) ==
PROVIDERS: PCP Family Medicine; Referring Provider Internal Medicine Gastroenterology; Visit Provider Internal Medicine Gastroenterology
DX: R18.8 Other ascites (principal)
CPT/HCPCS: 49083

== ENCOUNTER → 2022-11-30 | Outpatient (CLI) | payer SELFPAY ==
--- NOTE | 2022-11-30 10:18 | US_ITS ---
PROCEDURE: Ultrasound guided paracentesis. DATE OF EXAMINATION: 11/30/2022. INDICATION: Female, 62 years old. Ascites. PHYSICIAN: Valeriano Hull M.D. TECHNIQUE: The risks, benefits, and alternatives to the procedure were explained to the patient. The specific risks of bleeding, infection, and damage to bowel were detailed and accepted. Witnessed informed consent was obtained. The abdomen was ultrasonographically surveyed. An appropriate pocket of fluid was identified at the right lower quadrant. The skin were cleaned and prepped in the usual sterile fashion. Using ultrasound guidance, the peritoneal cavity was accessed with a 5-Austrian paracentesis needle/catheter system. The trocar was removed. A total of 6500 ml of willis-colored fluid were removed from the peritoneal cavity. The catheter was removed and a sterile dressing was applied. The procedure was well tolerated. US/Paracentesis with US IMPRESSION: Ultrasound guided paracentesis. Electronically Signed: Valeriano Hull MD at 12:20 EST ,
[2022-11-30] MEDS: Lidocaine 2% (20 ml mdv) 20 ML Vial INFILT (10:47)
[2022-11-30 10:55] VITALS: BP 102/63; BP 92/51; BP 93/62; BP 96/63; PULSE 84; PULSE 87; PULSE 91; PULSE 98; RESP 16; TEMP 36.6; O2SAT 97; O2SAT 98; O2SAT 99
[2022-11-30] MEDS: Albumin Human 25% (100 mL) 25 GM/100 ML BAG IV (11:57)
[2022-11-30 12:00] VITALS: BP 99/59; PULSE 82; RESP 16; TEMP 36.2; O2SAT 99
[2022-11-30 12:04] LABS: Absolute Lymphocyte Count 1.13 X10^3/uL (0.83-4.51); Absolute Neutrophil Count 1.5 X10^3/uL (2.0-7.7); Basophil# 0.01 X10^3/uL; Basophil% 0.3 % (0-1); Eosinophil# 0.09 X10^3/uL; Eosinophils% 2.9 % (0-5); Hematocrit 35.2 % (37-47); Hemoglobin 11.4 g/dL (12.0-15.0); Lymphocyte # 1.13 X10^3/ul (0.83-4.51); Mean Corp Hgb Conc 32.4 g/dL (32-36); Mean Corpuscular Volume 86.5 fL (81-99); Monocyte# 0.39 X10^3/uL; Monocyte% 12.4 % (0-10); NRBC Flagged by Analyzer 0 % (0-5); Neutrophil # 1.52 X10^3/uL (2.7-7.7); Neutrophil % 48.4 % (47-70); POSITIVE COUNT YES; RBC Distribution Width CV 16.6 % (11.6-14.6); RBC Distribution Width SD 53.1 fl (35.1-43.9); Red Blood Count 4.07 M/mm3 (4.2-5.4); White Blood Count 3.1 K/mm3 (4.4-11.0)
[2022-11-30 12:15] LABS: ALB/GLOB Ratio 0.6 RATIO (0.9-2.4); AST(SGOT) 31 U/L (15-37); Alanine Aminotransfer ALT/SGPT 17 U/L (13-56); Albumin, Serum 2.2 g/dL (3.2-5.0); Alkaline Phosphatase 173 U/L (45-117); Anion Gap 6 (5-15); BUN 16 mg/dL (7-18); BUN/Creat Ratio 26.6 RATIO (10-20); Calcium,Total 7.3 mg/dL (8.5-10.1); Chloride 108 mmol/L (98-107); EST Glomerular Filtration Rate 108 mL/min (>60); Est Glom Filt Rate - Afr Amer 130 mL/min (>60); Glucose 107 mg/dL (74-106); Potassium 3.9 mmol/L (3.5-5.1); Protein, Total 6.2 g/dL (6.4-8.2); Sodium Level 141 mmol/L (136-145)
[2022-11-30 12:28] LABS: Differential Indicated SCAN CRITERIA MET
[2022-11-30 12:29] LABS: Platelet Estimate SLT DEC (ADEQ)
[2022-11-30] MEDS: Albumin Human 25% (50 mL) 12.5 GM/50 ML IV.SOLN IV (13:21)
[2022-11-30 14:22] VITALS: BP 91/58; PULSE 88; RESP 16; TEMP 36.4; O2SAT 99
== END | disposition home or self-care (01) ==
LOC: US 10:16
PROVIDERS: PCP Family Medicine; Referring Provider Internal Medicine Gastroenterology; Visit Provider Internal Medicine Gastroenterology
DX: K75.81 Nonalcoholic steatohepatitis (NASH) (principal); R18.8 Other ascites
CPT/HCPCS: 96365; 96366; 49083; 80053; 85025; J7050; P9047

== ENCOUNTER → 2022-12-07 | Outpatient (CLI) | payer SELFPAY ==
--- NOTE | 2022-12-07 10:29 | US_ITS ---
PROCEDURE: Ultrasound guided paracentesis. DATE OF EXAMINATION: 12/07/2022. INDICATION: Female, 62 years old. Ascites. PHYSICIAN: Valeriano Hull M.D. TECHNIQUE: The risks, benefits, and alternatives to the procedure were explained to the patient. The specific risks of bleeding, infection, and damage to bowel were detailed and accepted. Witnessed informed consent was obtained. The abdomen was ultrasonographically surveyed. An appropriate pocket of fluid was identified at the left lower quadrant. The skin were cleaned and prepped in the usual sterile fashion. Using ultrasound guidance, the peritoneal cavity was accessed with a 5-Indonesian paracentesis needle/catheter system. The trocar was removed. A total of 7100 ml of willis-colored fluid were removed from the peritoneal cavity. The catheter was removed and a sterile dressing was applied. The procedure was well tolerated. US/Paracentesis with US IMPRESSION: Ultrasound guided paracentesis. Electronically Signed: Valeriano Hull MD at 12:23 EST ,
[2022-12-07 10:50] VITALS: BP 102/59; BP 109/72; BP 97/54; PULSE 85; PULSE 90; RESP 14; RESP 18; O2SAT 100
[2022-12-07] MEDS: Lidocaine 2% (20 ml mdv) 20 ML Vial INFILT (10:50)
[2022-12-07 11:47] LABS: Absolute Lymphocyte Count 1.14 X10^3/uL (0.83-4.51); Absolute Neutrophil Count 1.5 X10^3/uL (2.0-7.7); Basophil# 0.01 X10^3/uL; Basophil% 0.3 % (0-1); Eosinophil# 0.13 X10^3/uL; Eosinophils% 4.1 % (0-5); Hematocrit 36.5 % (37-47); Lymphocyte # 1.14 X10^3/ul (0.83-4.51); Mean Corp Hgb Conc 32.9 g/dL (32-36); Mean Corpuscular Hgb 28.4 pg (27.0-32.0); Mean Corpuscular Volume 86.3 fL (81-99); Mean Platelet Vol. 9.6 fl (6.2-12.0); Monocyte# 0.36 X10^3/uL; Monocyte% 11.4 % (0-10); NRBC Flagged by Analyzer 0 % (0-5); Neutrophil # 1.52 X10^3/uL (2.7-7.7); Neutrophil % 47.9 % (47-70); POSITIVE COUNT YES; Platelet Count 77 K/mm3 (150-450); RBC Distribution Width CV 17.2 % (11.6-14.6); RBC Distribution Width SD 54.4 fl (35.1-43.9); Red Blood Count 4.23 M/mm3 (4.2-5.4); White Blood Count 3.2 K/mm3 (4.4-11.0)
[2022-12-07] MEDS: 0.9% Saline Lock 10 ML Syringe IV (11:51)
[2022-12-07] MEDS: Albumin Human 25% (100 mL) 25 GM/100 ML BAG IV (11:52)
[2022-12-07 11:57] VITALS: BP 92/65; PULSE 78; RESP 16; TEMP 36.2; O2SAT 99
[2022-12-07 12:05] LABS: ALB/GLOB Ratio 0.7 RATIO (0.9-2.4); AST(SGOT) 27 U/L (15-37); Alanine Aminotransfer ALT/SGPT 18 U/L (13-56); Albumin, Serum 2.5 g/dL (3.2-5.0); Alkaline Phosphatase 200 U/L (45-117); Anion Gap 5 (5-15); BUN 12 mg/dL (7-18); BUN/Creat Ratio 18.1 RATIO (10-20); Calcium,Total 7.6 mg/dL (8.5-10.1); Chloride 108 mmol/L (98-107); Creatinine, Serum 0.66 mg/dL (0.55-1.02); EST Glomerular Filtration Rate 96 mL/min (>60); Est Glom Filt Rate - Afr Amer 116 mL/min (>60); Globulin 3.8 g/dL (2.2-4.2); Glucose 101 mg/dL (74-106); Potassium 3.5 mmol/L (3.5-5.1); Protein, Total 6.3 g/dL (6.4-8.2); Sodium Level 139 mmol/L (136-145)
[2022-12-07] MEDS: Albumin Human 25% (50 mL) 12.5 GM/50 ML IV.SOLN IV (13:16)
== END | disposition home or self-care (01) ==
PROVIDERS: PCP Family Medicine; Referring Provider Internal Medicine Gastroenterology; Visit Provider Internal Medicine Gastroenterology
DX: K75.81 Nonalcoholic steatohepatitis (NASH) (principal)
CPT/HCPCS: 96365; 96366; 49083; 80053; 85025; J7050; P9047; A4216

== ENCOUNTER → 2022-12-14 | Outpatient (CLI) | payer SELFPAY ==
--- NOTE | 2022-12-14 11:46 | CT_ITS ---
STUDY: CT ABDOMEN AND PELVIS WITHOUT CONTRAST REASON FOR EXAM: Female, 62 years old. VOMITING. Recurrent ascites. RADIATION DOSAGE (If Supplied By Facility): CTDIvol = ( 12.56 ) mGy, DLP = ( 649.37 ) mGycm TECHNIQUE: Transaxial images were obtained from the dome of the diaphragm to the symphysis pubis without oral contrast, and without intravenous contrast. Sagittal and coronal images were reconstructed. Individualized dose optimization techniques were used for this CT. COMPARISON: Comparison is made with prior study dated 12/22/2021. FINDINGS: There is volume loss in the right hemithorax with the multiple cystic changes in the right lower lobe and the calcified pleural plaques. This is essentially unchanged. The visualized portions of the heart are within normal limits. There is a diffuse contour abnormality of the liver consistent with cirrhotic changes. There are multiple gallstones. There is mild splenomegaly. Findings suggestive of varices in the splenic hilum. Stable volume loss in the right hemithorax with multiple cystic changes and soft tissue prominence in the right lower lobe. Normal pancreas. Normal bilateral adrenal glands. Normal right kidney. Normal left kidney. Normal visualized stomach. Normal small intestine. There are multiple colonic diverticula consistent with diverticulosis. The appendix is visualized and appears normal. Normal abdominal aorta. Normal inferior vena cava. Normal retroperitoneum. Normal urinary bladder. Diffuse ascites. Midline ventral hernia containing nondilated small bowel loops and the ascitic fluid. Diffuse skin thickening and increased markings in the subcutaneous fat of the abdominal wall. Normal osseous structures. CT/Abdomen/Pelvis without Cont IMPRESSION: Diffuse ascites and findings suggestive of cirrhosis with a evidence of a splenomegaly and varices in the region of the splenic hilum. Electronically Signed: Valeriano Hull MD at 12:44 EST ,
[2022-12-14 12:30] LABS: Absolute Lymphocyte Count 1.07 X10^3/uL (0.83-4.51); Absolute Neutrophil Count 1.4 X10^3/uL (2.0-7.7); Basophil# 0.02 X10^3/uL; Basophil% 0.7 % (0-1); Eosinophil# 0.12 X10^3/uL; Eosinophils% 3.9 % (0-5); Hematocrit 35.2 % (37-47); Hemoglobin 11.3 g/dL (12.0-15.0); Lymphocyte # 1.07 X10^3/ul (0.83-4.51); Lymphocyte % 35.2 % (19-41); Mean Corp Hgb Conc 32.1 g/dL (32-36); Mean Corpuscular Hgb 28.2 pg (27.0-32.0); Mean Corpuscular Volume 87.8 fL (81-99); Monocyte# 0.42 X10^3/uL; Monocyte% 13.8 % (0-10); NRBC Flagged by Analyzer 0 % (0-5); Neutrophil # 1.41 X10^3/uL (2.7-7.7); Neutrophil % 46.4 % (47-70); POSITIVE COUNT YES; Platelet Count 63 K/mm3 (150-450); RBC Distribution Width SD 54.4 fl (35.1-43.9); Red Blood Count 4.01 M/mm3 (4.2-5.4)
[2022-12-14 13:07] LABS: ALB/GLOB Ratio 0.7 RATIO (0.9-2.4); AST(SGOT) 26 U/L (15-37); Alanine Aminotransfer ALT/SGPT 19 U/L (13-56); Albumin, Serum 2.4 g/dL (3.2-5.0); Alkaline Phosphatase 165 U/L (45-117); Anion Gap 5 (5-15); BUN 10 mg/dL (7-18); BUN/Creat Ratio 15.5 RATIO (10-20); Calcium,Total 7.1 mg/dL (8.5-10.1); Chloride 107 mmol/L (98-107); Creatinine, Serum 0.65 mg/dL (0.55-1.02); EST Glomerular Filtration Rate 99 mL/min (>60); Est Glom Filt Rate - Afr Amer 120 mL/min (>60); Globulin 3.3 g/dL (2.2-4.2); Glucose 97 mg/dL (74-106); Potassium 3.8 mmol/L (3.5-5.1); Protein, Total 5.7 g/dL (6.4-8.2); Sodium Level 138 mmol/L (136-145)
== END | disposition home or self-care (01) ==
LOC: CT 11:45
PROVIDERS: PCP Family Medicine
DX: R10.9 Unspecified abdominal pain (principal); R11.2 Nausea with vomiting, unspecified; Z87.19 Personal history of other diseases of the digestive system
CPT/HCPCS: 74176; 80053; 85025; Q9967; A4216

== ENCOUNTER → 2022-12-14 | Outpatient (CLI) | payer SELFPAY ==
--- NOTE | 2022-12-14 10:49 | US_ITS ---
PROCEDURE: Ultrasound guided paracentesis. DATE OF EXAMINATION: 12/14/2022. INDICATION: Female, 62 years old. Ascites. PHYSICIAN: Valeriano Hull M.D. TECHNIQUE: The risks, benefits, and alternatives to the procedure were explained to the patient. The specific risks of bleeding, infection, and damage to bowel were detailed and accepted. Witnessed informed consent was obtained. The abdomen was ultrasonographically surveyed. An appropriate pocket of fluid was identified at the right lower quadrant. The skin were cleaned and prepped in the usual sterile fashion. Using ultrasound guidance, the peritoneal cavity was accessed with a 5-Slovenian paracentesis needle/catheter system. The trocar was removed. A total of 7050 ml of willis-colored fluid were removed from the peritoneal cavity. The catheter was removed and a sterile dressing was applied. The procedure was well tolerated. US/Paracentesis with US IMPRESSION: Ultrasound guided paracentesis. Electronically Signed: Valeriano Hull MD at 12:00 EST ,
[2022-12-14 10:56] VITALS: BP 100/54; BP 107/57; BP 90/53; BP 97/58; PULSE 101; PULSE 85; PULSE 91; RESP 18; TEMP 37.6; O2SAT 100; O2SAT 98; O2SAT 99
[2022-12-14] MEDS: Lidocaine 2% (20 ml mdv) 20 ML Vial INFILT (11:05)
[2022-12-14] MEDS: 0.9% Saline Lock 10 ML Syringe IV (11:24)
[2022-12-14] MEDS: Albumin Human 25% (100 mL) 25 GM/100 ML BAG IV (12:15)
[2022-12-14] MEDS: Albumin Human 25% (50 mL) 12.5 GM/50 ML IV.SOLN IV (13:38)
[2022-12-14 14:37] VITALS: BP 98/65; PULSE 72
== END | disposition home or self-care (01) ==
PROVIDERS: PCP Family Medicine; Referring Provider Internal Medicine Gastroenterology; Visit Provider Internal Medicine Gastroenterology
DX: K75.81 Nonalcoholic steatohepatitis (NASH) (principal)
CPT/HCPCS: 96365; 96366; 49083; J7050; P9047; A4216

== ENCOUNTER → 2022-12-21 | Outpatient (CLI) | payer SELFPAY ==
--- NOTE | 2022-12-21 10:20 | US_ITS ---
PROCEDURE: Ultrasound guided paracentesis. DATE OF EXAMINATION: 12/21/2022. INDICATION: Female, 62 years old. Ascites. PHYSICIAN: Valeriano Hull M.D. TECHNIQUE: The risks, benefits, and alternatives to the procedure were explained to the patient. The specific risks of bleeding, infection, and damage to bowel were detailed and accepted. Witnessed informed consent was obtained. The abdomen was ultrasonographically surveyed. An appropriate pocket of fluid was identified at the right lower quadrant. The skin were cleaned and prepped in the usual sterile fashion. Using ultrasound guidance, the peritoneal cavity was accessed with a 5-Singaporean paracentesis needle/catheter system. The trocar was removed. A total of 6500 ml of willis-colored fluid were removed from the peritoneal cavity. The catheter was removed and a sterile dressing was applied. The procedure was well tolerated. US/Paracentesis with US IMPRESSION: Ultrasound guided paracentesis. Electronically Signed: Valeriano Hull MD at 12:18 EST ,
[2022-12-21 10:38] VITALS: BP 109/66; BP 85/50; BP 87/52; BP 88/54; BP 93/62; PULSE 100; PULSE 104; PULSE 106; PULSE 95; PULSE 98; RESP 18; TEMP 36.9; O2SAT 98; O2SAT 99
[2022-12-21] MEDS: Lidocaine 2% (20 ml mdv) 20 ML Vial INFILT (10:52)
[2022-12-21] MEDS: 0.9% Saline Lock 10 ML Syringe IV (11:23)
[2022-12-21 11:40] VITALS: BP 76/46; PULSE 75; RESP 16; TEMP 36.6
[2022-12-21] MEDS: Albumin Human 25% (100 mL) 25 GM/100 ML BAG IV (11:46)
[2022-12-21 12:38] LABS: ALB/GLOB Ratio 0.7 RATIO (0.9-2.4); AST(SGOT) 28 U/L (15-37); Alanine Aminotransfer ALT/SGPT 22 U/L (13-56); Albumin, Serum 2.5 g/dL (3.2-5.0); Alkaline Phosphatase 195 U/L (45-117); Anion Gap 5 (5-15); BUN 12 mg/dL (7-18); BUN/Creat Ratio 18.9 RATIO (10-20); Calcium,Total 7.6 mg/dL (8.5-10.1); Chloride 109 mmol/L (98-107); Creatinine, Serum 0.64 mg/dL (0.55-1.02); EST Glomerular Filtration Rate 101 mL/min (>60); Est Glom Filt Rate - Afr Amer 123 mL/min (>60); Globulin 3.5 g/dL (2.2-4.2); Glucose 142 mg/dL (74-106); Potassium 3.6 mmol/L (3.5-5.1); Sodium Level 140 mmol/L (136-145)
[2022-12-21 12:42] LABS: Absolute Lymphocyte Count 1.17 X10^3/uL (0.83-4.51); Absolute Neutrophil Count 1.7 X10^3/uL (2.0-7.7); Basophil# 0.01 X10^3/uL; Basophil% 0.3 % (0-1); Eosinophil# 0.13 X10^3/uL; Eosinophils% 3.8 % (0-5); Hematocrit 36.6 % (37-47); Hemoglobin 11.6 g/dL (12.0-15.0); Lymphocyte # 1.17 X10^3/ul (0.83-4.51); Lymphocyte % 34.3 % (19-41); Mean Corp Hgb Conc 31.7 g/dL (32-36); Mean Corpuscular Hgb 27.9 pg (27.0-32.0); Mean Platelet Vol. 10.9 fl (6.2-12.0); Monocyte# 0.38 X10^3/uL; Monocyte% 11.1 % (0-10); NRBC Flagged by Analyzer 0 % (0-5); Neutrophil # 1.71 X10^3/uL (2.7-7.7); Neutrophil % 50.2 % (47-70); POSITIVE COUNT YES; Platelet Count 80 K/mm3 (150-450); RBC Distribution Width SD 54.7 fl (35.1-43.9); Red Blood Count 4.16 M/mm3 (4.2-5.4); White Blood Count 3.4 K/mm3 (4.4-11.0)
[2022-12-21] MEDS: Albumin Human 25% (50 mL) 12.5 GM/50 ML IV.SOLN IV (13:10)
[2022-12-21 14:10] VITALS: BP 84/44; PULSE 77; RESP 16; TEMP 36.4
== END | disposition home or self-care (01) ==
LOC: US 10:19
PROVIDERS: PCP Family Medicine; Visit Provider Internal Medicine Gastroenterology
DX: K75.81 Nonalcoholic steatohepatitis (NASH) (principal); R18.8 Other ascites
CPT/HCPCS: 49083; 80053; 85025; J7050; P9047; A4216

== ENCOUNTER → 2022-12-28 | Outpatient (CLI) | payer SELFPAY ==
--- NOTE | 2022-12-28 10:35 | US_ITS ---
PROCEDURE: Ultrasound guided paracentesis. DATE OF EXAMINATION: December 28, 2022. INDICATION: Female, 62 years old. Ascites. PHYSICIAN: Valeriano Hull M.D. TECHNIQUE: The risks, benefits, and alternatives to the procedure were explained to the patient. The specific risks of bleeding, infection, and damage to bowel were detailed and accepted. Witnessed informed consent was obtained. The abdomen was ultrasonographically surveyed. An appropriate pocket of fluid was identified at the right lower quadrant. The skin were cleaned and prepped in the usual sterile fashion. Using ultrasound guidance, the peritoneal cavity was accessed with a 5-Irish paracentesis needle/catheter system. The trocar was removed. A total of 7100 ml of willis-colored fluid were removed from the peritoneal cavity. The catheter was removed and a sterile dressing was applied. The procedure was well tolerated. US/Paracentesis with US IMPRESSION: Ultrasound guided paracentesis. Electronically Signed: Valeriano Hull MD at 12:27 EST ,
[2022-12-28 11:01] VITALS: BP 100/60; BP 106/66; BP 108/57; BP 98/54; BP 98/58; PULSE 68; PULSE 71; PULSE 76; PULSE 81; RESP 16; TEMP 36.2; O2SAT 100; O2SAT 98; O2SAT 99
[2022-12-28] MEDS: Lidocaine 2% (20 ml mdv) 20 ML Vial INFILT (11:03)
[2022-12-28] MEDS: 0.9% Saline Lock 10 ML Syringe IV (11:58)
[2022-12-28] MEDS: Albumin Human 25% (100 mL) 25 GM/100 ML BAG IV (12:05)
[2022-12-28 12:10] VITALS: BP 89/56; PULSE 71; RESP 16; TEMP 36.3; O2SAT 100
[2022-12-28] MEDS: Albumin Human 25% (50 mL) 12.5 GM/50 ML IV.SOLN IV (13:34)
[2022-12-28 14:32] VITALS: BP 85/48; PULSE 72; RESP 14; TEMP 36.5; O2SAT 96
== END | disposition home or self-care (01) ==
LOC: US 10:33
PROVIDERS: PCP Family Medicine; Referring Provider Internal Medicine Gastroenterology; Visit Provider Internal Medicine Gastroenterology
DX: K75.81 Nonalcoholic steatohepatitis (NASH) (principal); K72.90 Hepatic failure, unspecified without coma; K74.60 Unspecified cirrhosis of liver
CPT/HCPCS: 96365; 96366 ×2; 49083; J7050; P9047; A4216

== ENCOUNTER → 2023-01-04 | Outpatient (CLI) | payer SELFPAY ==
--- NOTE | 2023-01-04 10:33 | US_ITS ---
PROCEDURE: Ultrasound guided paracentesis. DATE OF EXAMINATION: January 04, 2023. INDICATION: Female, 62 years old. Ascites. PHYSICIAN: Valeriano Hull M.D. TECHNIQUE: The risks, benefits, and alternatives to the procedure were explained to the patient. The specific risks of bleeding, infection, and damage to bowel were detailed and accepted. Witnessed informed consent was obtained. The abdomen was ultrasonographically surveyed. An appropriate pocket of fluid was identified at the right lower quadrant. The skin were cleaned and prepped in the usual sterile fashion. Using ultrasound guidance, the peritoneal cavity was accessed with a 5-Czech paracentesis needle/catheter system. The trocar was removed. A total of 6550 ml of willis-colored fluid were removed from the peritoneal cavity. The catheter was removed and a sterile dressing was applied. The procedure was well tolerated. US/Paracentesis with US IMPRESSION: Ultrasound guided paracentesis. Electronically Signed: Valeriano Hull MD at 12:13 EST ,
[2023-01-04 10:56] VITALS: BP 107/60; BP 97/61; PULSE 84; PULSE 88; RESP 16; RESP 18; TEMP 36.7; O2SAT 99
[2023-01-04] MEDS: Lidocaine 2% (20 ml mdv) 20 ML Vial INFILT (11:26)
[2023-01-04] MEDS: Albumin Human 25% (100 mL) 25 GM/100 ML BAG IV (11:52)
[2023-01-04 11:53] VITALS: BP 98/64; PULSE 77; RESP 16
[2023-01-04] MEDS: Albumin Human 25% (50 mL) 12.5 GM/50 ML IV.SOLN IV (13:15)
[2023-01-04 14:39] LABS: Hematocrit 30.6 % (37-47); Hemoglobin 9.9 g/dL (12.0-15.0); Mean Corp Hgb Conc 32.4 g/dL (32-36); Mean Corpuscular Hgb 29.2 pg (27.0-32.0); Mean Corpuscular Volume 90.3 fL (81-99); Mean Platelet Vol. 9.3 fl (6.2-12.0); POSITIVE COUNT YES; Platelet Count 72 K/mm3 (150-450); RBC Distribution Width CV 17.9 % (11.6-14.6); RBC Distribution Width SD 59.6 fl (35.1-43.9); Red Blood Count 3.39 M/mm3 (4.2-5.4); White Blood Count 2.7 K/mm3 (4.4-11.0)
[2023-01-04 14:45] LABS: Prothrombin Time (Protime)PT. 22.1 SECONDS (11.7-14.9)
[2023-01-04 14:46] LABS: Partial Thromboplast Time 45.2 Seconds (24.1-36.2)
[2023-01-04 14:52] LABS: ALB/GLOB Ratio 1.2 RATIO (0.9-2.4); AST(SGOT) 26 U/L (15-37); Alanine Aminotransfer ALT/SGPT 22 U/L (13-56); Albumin, Serum 2.9 g/dL (3.2-5.0); Alkaline Phosphatase 136 U/L (45-117); Anion Gap 4 (5-15); BUN 11 mg/dL (7-18); BUN/Creat Ratio 16.8 RATIO (10-20); Calcium,Total 7.2 mg/dL (8.5-10.1); Chloride 108 mmol/L (98-107); Creatinine, Serum 0.66 mg/dL (0.55-1.02); EST Glomerular Filtration Rate 98 mL/min (>60); Est Glom Filt Rate - Afr Amer 118 mL/min (>60); Globulin 2.5 g/dL (2.2-4.2); Glucose 127 mg/dL (74-106); Potassium 3.6 mmol/L (3.5-5.1); Protein, Total 5.4 g/dL (6.4-8.2); Sodium Level 141 mmol/L (136-145)
== END | disposition home or self-care (01) ==
LOC: US 10:28
PROVIDERS: PCP Family Medicine; Referring Provider Internal Medicine Gastroenterology; Visit Provider Internal Medicine Gastroenterology
DX: K75.81 Nonalcoholic steatohepatitis (NASH) (principal)
CPT/HCPCS: 96365; 96366; 36415; 49083; 80053; 85027; 85610; 85730; J7050; P9047; A4216

== ENCOUNTER → 2023-01-11 | Outpatient (CLI) | payer SELFPAY ==
--- NOTE | 2023-01-11 10:36 | US_ITS ---
PROCEDURE: ULTRASOUND GUIDED PARACENTESIS CLINICAL HISTORY: Female, 62 years old. ASCITES CONSENT: Informed consent obtained Time-Out Called: Yes. Consent form signed: Yes. PT-PTT Levels Checked: Yes. SEDATION: Local with 1% Xylocaine TECHNIQUE: Sonographically guided FINDINGS: Informed consent was obtained with explanations of the risks and benefits of the procedure including possible bowel perforation. Appropriate site for paracentesis was determined using sonographic guidance. The area was marked, prepped and draped in a sterile manner and 1% Xylocaine was used as local anesthetic. A 14-gauge Yeuh catheter was advanced into the peritoneal cavity and fluid return was noted. The drainage tube was put to suction and approximately 8000 mL of straw-colored serous fluid was withdrawn from the peritoneal cavity. Patient tolerated procedure well with no immediate complications. US/Paracentesis with US IMPRESSION: Successful sonographically guided paracentesis Electronically Signed: Lucian Medina MD at 12:02 EDT ,
[2023-01-11 10:46] VITALS: BP 122/77; PULSE 96; RESP 18; TEMP 37.2; O2SAT 98
[2023-01-11 10:54] VITALS: BP 95/62; PULSE 97; RESP 18; O2SAT 99
[2023-01-11] MEDS: Lidocaine 2% (20 ml mdv) 20 ML Vial INFILT (10:58)
[2023-01-11 11:08] VITALS: BP 94/59; PULSE 100; RESP 18; O2SAT 98
[2023-01-11] MEDS: 0.9% Saline Lock 10 ML Syringe IV (11:20)
[2023-01-11 11:25] VITALS: BP 97/56; PULSE 93; RESP 18; O2SAT 99
[2023-01-11 11:38] VITALS: BP 98/57; PULSE 78; RESP 16; TEMP 36.5; O2SAT 98; BMI 30.1
[2023-01-11] MEDS: Albumin Human 25% (100 mL) 25 GM/100 ML BAG IV ×2 (11:54→13:16)
[2023-01-11 15:06] VITALS: BP 82/48; PULSE 87; RESP 16; TEMP 36.4; O2SAT 97
== END | disposition home or self-care (01) ==
LOC: US 10:35
PROVIDERS: PCP Family Medicine; Referring Provider Internal Medicine Gastroenterology; Visit Provider Internal Medicine Gastroenterology
DX: K75.81 Nonalcoholic steatohepatitis (NASH) (principal)
CPT/HCPCS: 96365; 96366 ×2; 49083; P9047

== ENCOUNTER → 2023-01-18 | Outpatient (CLI) | payer SELFPAY ==
--- NOTE | 2023-01-18 10:27 | US_ITS ---
PROCEDURE: Ultrasound guided paracentesis. DATE OF EXAMINATION: January 18, 2023. INDICATION: Female, 62 years old. Ascites. PHYSICIAN: Valeriano Hull M.D. TECHNIQUE: The risks, benefits, and alternatives to the procedure were explained to the patient. The specific risks of bleeding, infection, and damage to bowel were detailed and accepted. Witnessed informed consent was obtained. The abdomen was ultrasonographically surveyed. An appropriate pocket of fluid was identified at the right lower quadrant. The skin were cleaned and prepped in the usual sterile fashion. Using ultrasound guidance, the peritoneal cavity was accessed with a 5-Maori paracentesis needle/catheter system. The trocar was removed. A total of 7650 ml of willis-colored fluid were removed from the peritoneal cavity. The catheter was removed and a sterile dressing was applied. The procedure was well tolerated. US/Paracentesis with US IMPRESSION: Ultrasound guided paracentesis. Electronically Signed: Valeriano Hull MD at 12:07 EDT ,
[2023-01-18 10:44] VITALS: BP 100/61; BP 101/59; BP 104/55; BP 106/59; PULSE 85; PULSE 88; PULSE 90; PULSE 93; RESP 18; TEMP 37; O2SAT 100; O2SAT 99
[2023-01-18] MEDS: Lidocaine 2% (20 ml mdv) 20 ML Vial INFILT (10:51)
[2023-01-18] MEDS: 0.9% Saline Lock 10 ML Syringe IV (11:15)
[2023-01-18] MEDS: Albumin Human 25% (100 mL) 25 GM/100 ML BAG IV ×2 (11:55→13:19)
[2023-01-18 15:16] VITALS: BP 80/47; PULSE 58; RESP 14; O2SAT 96
== END | disposition home or self-care (01) ==
LOC: US 10:26
PROVIDERS: PCP Family Medicine; Visit Provider Internal Medicine Gastroenterology
DX: K75.81 Nonalcoholic steatohepatitis (NASH) (principal)
CPT/HCPCS: 96365; 96366; 49083; J7050; P9047; A4216

== ENCOUNTER → 2023-01-25 | Outpatient (CLI) | payer SELFPAY ==
--- NOTE | 2023-01-25 10:30 | US_ITS ---
PROCEDURE: Ultrasound guided paracentesis. DATE OF EXAMINATION: January 25, 2023. INDICATION: Female, 62 years old. Ascites. PHYSICIAN: Valeriano Hull M.D. TECHNIQUE: The risks, benefits, and alternatives to the procedure were explained to the patient. The specific risks of bleeding, infection, and damage to bowel were detailed and accepted. Witnessed informed consent was obtained. The abdomen was ultrasonographically surveyed. An appropriate pocket of fluid was identified at the right lower quadrant. The skin were cleaned and prepped in the usual sterile fashion. Using ultrasound guidance, the peritoneal cavity was accessed with a 5-Yi paracentesis needle/catheter system. The trocar was removed. A total of 8250 ml of willis-colored fluid were removed from the peritoneal cavity. The catheter was removed and a sterile dressing was applied. The procedure was well tolerated. US/Paracentesis with US IMPRESSION: Ultrasound guided paracentesis. Electronically Signed: Valeriano Hull MD at 12:33 EDT ,
[2023-01-25] MEDS: Lidocaine 2% (20 ml mdv) 20 ML Vial INFILT (10:57)
[2023-01-25 11:00] VITALS: BP 100/54; BP 104/54; BP 105/59; BP 91/55; BP 92/55; BP 94/50; PULSE 72; PULSE 73; PULSE 74; PULSE 75; PULSE 76; PULSE 81; RESP 16; TEMP 36.6; O2SAT 100; O2SAT 97; O2SAT 98; O2SAT 99
[2023-01-25 11:49] VITALS: BP 82/50; PULSE 72; RESP 14; O2SAT 100
[2023-01-25] MEDS: Albumin Human 25% (100 mL) 25 GM/100 ML BAG IV ×2 (12:01→13:27)
[2023-01-25 15:21] VITALS: BP 82/50; PULSE 78
== END | disposition home or self-care (01) ==
LOC: US 10:29
PROVIDERS: PCP Family Medicine; Visit Provider Internal Medicine Gastroenterology
DX: K75.81 Nonalcoholic steatohepatitis (NASH) (principal)
CPT/HCPCS: 96365; 96366; 49083; J7050; P9047

== ENCOUNTER → 2023-02-01 | Outpatient (CLI) | payer SELFPAY ==
--- NOTE | 2023-02-01 10:18 | US_ITS ---
PROCEDURE: Ultrasound guided paracentesis. DATE OF EXAMINATION: February 01, 2023. INDICATION: Female, 63 years old. Ascites. PHYSICIAN: Valeriano Hull M.D. TECHNIQUE: The risks, benefits, and alternatives to the procedure were explained to the patient. The specific risks of bleeding, infection, and damage to bowel were detailed and accepted. Witnessed informed consent was obtained. The abdomen was ultrasonographically surveyed. An appropriate pocket of fluid was identified at the right lower quadrant. The skin were cleaned and prepped in the usual sterile fashion. Using ultrasound guidance, the peritoneal cavity was accessed with a 5-Turkmen paracentesis needle/catheter system. The trocar was removed. A total of 6650 ml of willis-colored fluid were removed from the peritoneal cavity. The catheter was removed and a sterile dressing was applied. The procedure was well tolerated. US/Paracentesis with US IMPRESSION: Ultrasound guided paracentesis. Electronically Signed: Valeriano Hull MD at 11:49 EDT ,
[2023-02-01 10:40] VITALS: BP 105/57; BP 116/59; BP 91/49; BP 93/51; PULSE 80; PULSE 83; PULSE 85; PULSE 87; RESP 16; RESP 18; O2SAT 95; O2SAT 97
[2023-02-01] MEDS: Lidocaine 2% (20 ml mdv) 20 ML Vial (10:50)
[2023-02-01] MEDS: 0.9% Saline Lock 10 ML Syringe IV ×2 (11:24→11:46)
[2023-02-01 11:40] VITALS: BP 92/65; PULSE 68; RESP 16; TEMP 36.2; O2SAT 98
[2023-02-01] MEDS: Albumin Human 25% (100 mL) 25 GM/100 ML BAG IV (11:47)
[2023-02-01] MEDS: Albumin Human 25% (50 mL) 12.5 GM/50 ML IV.SOLN IV (13:10)
[2023-02-01 14:10] VITALS: BP 88/49; PULSE 77; RESP 16
== END | disposition home or self-care (01) ==
LOC: US 10:17
PROVIDERS: PCP Family Medicine; Visit Provider Internal Medicine Gastroenterology
DX: K75.81 Nonalcoholic steatohepatitis (NASH) (principal)
CPT/HCPCS: 96365; 96366; 49083; J7050; P9047; A4216

== ENCOUNTER → 2023-02-08 | Outpatient (CLI) | payer SELFPAY ==
--- NOTE | 2023-02-08 10:29 | US_ITS ---
PROCEDURE: ULTRASOUND GUIDED PARACENTESIS CLINICAL HISTORY: Female, 63 years old. ASCITES CONSENT: Informed consent obtained Time-Out Called: Yes. Consent form signed: Yes. PT-PTT Levels Checked: Yes. SEDATION: Local with 2% Xylocaine TECHNIQUE: Ultrasound-guided FINDINGS: FLUID PRE-PROCEDURE There is posterior enhancement. The findings appear anechoic. There is no loculation. After informed consent was obtained, appropriate site for paracentesis was determined using sonographic guidance. Area was prepped and draped in sterile manner and 2% Xylocaine was used as local anesthetic. A drainage catheter was advanced into the peritoneal cavity and approximately 8600 mL of straw-colored serous fluid was withdrawn via suction. Patient tolerated the procedure well with no immediate complications. US/Paracentesis with US IMPRESSION: Successful sonographically guided paracentesis Electronically Signed: Lucian Medina MD at 11:50 EDT ,
[2023-02-08] MEDS: Lidocaine 2% (20 ml mdv) 20 ML Vial INFILT (10:50)
[2023-02-08 10:51] VITALS: BP 109/64; BP 95/58; BP 95/63; PULSE 100; PULSE 108; PULSE 96; PULSE 98; RESP 18; TEMP 37.2; O2SAT 97; O2SAT 98; O2SAT 99
[2023-02-08] MEDS: 0.9% Saline Lock 10 ML Syringe IV (11:08)
[2023-02-08] MEDS: Albumin Human 25% (100 mL) 25 GM/100 ML BAG IV ×2 (11:53→13:17)
[2023-02-08 15:07] VITALS: BP 86/47; PULSE 90; RESP 16
== END | disposition home or self-care (01) ==
LOC: US 10:28
PROVIDERS: PCP Family Medicine; Referring Provider Internal Medicine Gastroenterology; Visit Provider Internal Medicine Gastroenterology
DX: K75.81 Nonalcoholic steatohepatitis (NASH) (principal)
CPT/HCPCS: 96365; 96366; 49083; J7050; P9047; A4216

== ENCOUNTER → 2023-02-19 | Outpatient (CLI) | payer SELFPAY ==
--- NOTE | 2023-02-19 08:13 | US_ITS ---
PROCEDURE: Ultrasound guided paracentesis. DATE OF EXAMINATION: February 19, 2023. INDICATION: Female, 63 years old. Ascites. PHYSICIAN: Valeriano Hull M.D. TECHNIQUE: The risks, benefits, and alternatives to the procedure were explained to the patient. The specific risks of bleeding, infection, and damage to bowel were detailed and accepted. Witnessed informed consent was obtained. The abdomen was ultrasonographically surveyed. An appropriate pocket of fluid was identified at the right lower quadrant. The skin were cleaned and prepped in the usual sterile fashion. Using ultrasound guidance, the peritoneal cavity was accessed with a 5-Yoruba paracentesis needle/catheter system. The trocar was removed. A total of 7300 ml of willis-colored fluid were removed from the peritoneal cavity. The catheter was removed and a sterile dressing was applied. The procedure was well tolerated. US/Paracentesis with US IMPRESSION: Ultrasound guided paracentesis. Electronically Signed: Valeriano Hull MD at 9:49 EDT ,
[2023-02-19 08:31] VITALS: BP 108/60; BP 93/59; BP 96/61; PULSE 104; PULSE 96; PULSE 97; RESP 14; RESP 18; O2SAT 96; O2SAT 97
[2023-02-19 09:39] VITALS: BP 88/53; PULSE 92; RESP 16; TEMP 36.5; O2SAT 99
[2023-02-19] MEDS: 0.9% Saline Lock 10 ML Syringe IV (09:54)
[2023-02-19] MEDS: Albumin Human 25% (100 mL) 25 GM/100 ML BAG IV ×2 (09:55→11:23)
[2023-02-19 13:22] VITALS: BP 90/46; PULSE 88; RESP 16; TEMP 36.8; O2SAT 98
== END | disposition home or self-care (01) ==
LOC: US 08:11
PROVIDERS: PCP Family Medicine; Referring Provider Internal Medicine Gastroenterology; Visit Provider Internal Medicine Gastroenterology
DX: K75.81 Nonalcoholic steatohepatitis (NASH) (principal)
CPT/HCPCS: 96365; 96366; 49083; J7050; P9046; A4216; P9047

== ENCOUNTER 2023-02-22 10:12 | Outpatient (CLI) | payer SELFPAY ==
--- NOTE | 2023-02-22 10:14 | US_ITS ---
PROCEDURE: Ultrasound guided paracentesis. DATE OF EXAMINATION: February 22, 2023. INDICATION: Female, 63 years old. Ascites. PHYSICIAN: Valeriano Hull M.D. TECHNIQUE: The risks, benefits, and alternatives to the procedure were explained to the patient. The specific risks of bleeding, infection, and damage to bowel were detailed and accepted. Witnessed informed consent was obtained. The abdomen was ultrasonographically surveyed. An appropriate pocket of fluid was identified at the left lower quadrant. The skin were cleaned and prepped in the usual sterile fashion. Using ultrasound guidance, the peritoneal cavity was accessed with a 5-Portuguese paracentesis needle/catheter system. The trocar was removed. A total of 7000 ml of willis-colored fluid were removed from the peritoneal cavity. The catheter was removed and a sterile dressing was applied. The procedure was well tolerated. US/Paracentesis with US IMPRESSION: Ultrasound guided paracentesis. Electronically Signed: Valeriano Hull MD at 11:46 EDT ,
[2023-02-22 10:42] VITALS: BP 100/60; BP 101/57; BP 97/55; PULSE 81; PULSE 83; PULSE 88; PULSE 89; RESP 18; TEMP 36.9; O2SAT 100; O2SAT 95; O2SAT 96; O2SAT 98
[2023-02-22] MEDS: Lidocaine 2% (20 ml mdv) 20 ML Vial INFILT (10:54)
[2023-02-22] MEDS: 0.9% Saline Lock 10 ML Syringe IV (11:22)
[2023-02-22 11:40] VITALS: BP 90/58; PULSE 77; RESP 16; TEMP 36.3; O2SAT 98
[2023-02-22] MEDS: Albumin Human 25% (100 mL) 25 GM/100 ML BAG IV (11:52)
[2023-02-22] MEDS: Albumin Human 25% (50 mL) 12.5 GM/50 ML IV.SOLN IV (13:22)
[2023-02-22 14:23] VITALS: BP 84/45; PULSE 78
== END 2023-02-22 23:59 | disposition home or self-care (01) ==
PROVIDERS: PCP Family Medicine; Referring Provider Internal Medicine Gastroenterology; Visit Provider Internal Medicine Gastroenterology
DX: K75.81 Nonalcoholic steatohepatitis (NASH) (principal)
CPT/HCPCS: 96365; 96366; 49083; J7050; P9047; A4216

== ENCOUNTER → 2023-03-01 | Outpatient (CLI) | payer SELFPAY ==
--- NOTE | 2023-03-01 10:09 | US_ITS ---
PROCEDURE: Ultrasound guided paracentesis. DATE OF EXAMINATION: March 01, 2023. INDICATION: Female, 63 years old. Ascites. PHYSICIAN: Valeriano Hull M.D. TECHNIQUE: The risks, benefits, and alternatives to the procedure were explained to the patient. The specific risks of bleeding, infection, and damage to bowel were detailed and accepted. Witnessed informed consent was obtained. The abdomen was ultrasonographically surveyed. An appropriate pocket of fluid was identified at the right lower quadrant. The skin were cleaned and prepped in the usual sterile fashion. Using ultrasound guidance, the peritoneal cavity was accessed with a 5-Lao paracentesis needle/catheter system. The trocar was removed. A total of 4400 ml of willis-colored fluid were removed from the peritoneal cavity. The catheter was removed and a sterile dressing was applied. The procedure was well tolerated. US/Paracentesis with US IMPRESSION: Ultrasound guided paracentesis. Electronically Signed: Valeriano Hull MD at 12:11 EDT ,
[2023-03-01] MEDS: Lidocaine 2% (20 ml mdv) 20 ML Vial INFILT (10:31)
[2023-03-01 10:34] VITALS: BP 96/50; BP 96/52; PULSE 76; PULSE 84; RESP 14; RESP 18; TEMP 36.8; O2SAT 99
== END | disposition home or self-care (01) ==
PROVIDERS: PCP Family Medicine; Referring Provider Internal Medicine Gastroenterology; Visit Provider Internal Medicine Gastroenterology
DX: K75.81 Nonalcoholic steatohepatitis (NASH) (principal)
CPT/HCPCS: 49083

== ENCOUNTER → 2023-03-08 | Outpatient (CLI) | payer SELFPAY ==
--- NOTE | 2023-03-08 10:35 | US_ITS ---
PROCEDURE: Ultrasound guided paracentesis. DATE OF EXAMINATION: March 08, 2023. INDICATION: Female, 63 years old. Ascites. PHYSICIAN: Valeriano Hull M.D. TECHNIQUE: The risks, benefits, and alternatives to the procedure were explained to the patient. The specific risks of bleeding, infection, and damage to bowel were detailed and accepted. Witnessed informed consent was obtained. The abdomen was ultrasonographically surveyed. An appropriate pocket of fluid was identified at the right lower quadrant. The skin were cleaned and prepped in the usual sterile fashion. Using ultrasound guidance, the peritoneal cavity was accessed with a 5-[place] Islander paracentesis needle/catheter system. The trocar was removed. A total of 5000 ml of willis-colored fluid were removed from the peritoneal cavity. The catheter was removed and a sterile dressing was applied. The procedure was well tolerated. US/Paracentesis with US IMPRESSION: Ultrasound guided paracentesis. Electronically Signed: Valeriano Hull MD at 12:13 EDT ,
[2023-03-08 10:48] VITALS: BP 114/59; BP 93/52; BP 96/56; PULSE 76; PULSE 77; PULSE 80; RESP 18; TEMP 36.6; O2SAT 97; O2SAT 98; O2SAT 99
[2023-03-08] MEDS: Lidocaine 2% (20 ml mdv) 20 ML Vial INFILT (10:55)
[2023-03-08] MEDS: 0.9% Saline Lock 10 ML Syringe IV (11:20)
[2023-03-08 11:36] VITALS: BP 90/59; PULSE 69; RESP 16
[2023-03-08] MEDS: Albumin Human 25% (100 mL) 25 GM/100 ML BAG IV (12:30)
[2023-03-08 14:02] VITALS: BP 93/51; PULSE 86
== END | disposition home or self-care (01) ==
LOC: US 10:35
PROVIDERS: PCP Family Medicine; Referring Provider Internal Medicine Gastroenterology; Visit Provider Internal Medicine Gastroenterology
DX: K75.81 Nonalcoholic steatohepatitis (NASH) (principal)
CPT/HCPCS: 96365; 49083; J7050; P9046; A4216; P9047

== ENCOUNTER → 2023-03-15 | Outpatient (CLI) | payer SELFPAY ==
--- NOTE | 2023-03-15 10:39 | US_ITS ---
PROCEDURE: Ultrasound guided paracentesis. DATE OF EXAMINATION: March 15, 2023.. INDICATION: Female, 63 years old. Ascites. PHYSICIAN: Valeriano Hull M.D. TECHNIQUE: The risks, benefits, and alternatives to the procedure were explained to the patient. The specific risks of bleeding, infection, and damage to bowel were detailed and accepted. Witnessed informed consent was obtained. The abdomen was ultrasonographically surveyed. An appropriate pocket of fluid was identified at the right lower quadrant. The skin were cleaned and prepped in the usual sterile fashion. Using ultrasound guidance, the peritoneal cavity was accessed with a 5-Luxembourgish paracentesis needle/catheter system. The trocar was removed. A total of 4500 ml of willis-colored fluid were removed from the peritoneal cavity. The catheter was removed and a sterile dressing was applied. The procedure was well tolerated. US/Paracentesis with US IMPRESSION: Ultrasound guided paracentesis. Electronically Signed: Valeriano Hull MD at 12:18 EDT ,
[2023-03-15 10:56] VITALS: BP 100/56; BP 108/47; BP 91/50; PULSE 80; PULSE 85; PULSE 88; RESP 14; RESP 18; O2SAT 98; O2SAT 99
[2023-03-15] MEDS: Lidocaine 2% (20 ml mdv) 20 ML Vial INFILT (11:13)
== END | disposition home or self-care (01) ==
PROVIDERS: PCP Family Medicine; Referring Provider Internal Medicine Gastroenterology; Visit Provider Internal Medicine Gastroenterology
DX: K75.81 Nonalcoholic steatohepatitis (NASH) (principal)
CPT/HCPCS: 49083

== ENCOUNTER → 2023-03-22 | Outpatient (CLI) | payer SELFPAY ==
--- NOTE | 2023-03-22 10:30 | US_ITS ---
PROCEDURE: Ultrasound guided paracentesis. DATE OF EXAMINATION: March 22, 2023. INDICATION: Female, 63 years old. Ascites. PHYSICIAN: Rafita Luis DO TECHNIQUE: The risks, benefits, and alternatives to the procedure were explained to the patient. The specific risks of bleeding, infection, and damage to bowel were detailed and accepted. Witnessed informed consent was obtained. The abdomen was ultrasonographically surveyed. An appropriate pocket of fluid was identified at the left lower quadrant. The skin were cleaned and prepped in the usual sterile fashion. Using ultrasound guidance, the peritoneal cavity was accessed with a 5-Uzbek paracentesis needle/catheter system. The trocar was removed. A total of 5200 ml of clear straw colored fluid were removed from the peritoneal cavity. The catheter was removed and a sterile dressing was applied. The procedure was well tolerated. US/Paracentesis with US IMPRESSION: Ultrasound guided therapeutic paracentesis. Electronically Signed: Rafita Luis DO at 12:40 EDT ,
[2023-03-22 10:52] VITALS: BP 104/59; BP 109/53; BP 111/64; PULSE 102; PULSE 88; PULSE 90; RESP 16; TEMP 36.9; O2SAT 96; O2SAT 98
[2023-03-22] MEDS: Lidocaine 2% (20 ml mdv) 20 ML Vial INFILT (10:56)
[2023-03-22 11:29] VITALS: BP 98/59; PULSE 104; RESP 16; O2SAT 98
[2023-03-22 11:44] VITALS: BP 91/51; PULSE 101; RESP 16; TEMP 36.6; O2SAT 100
[2023-03-22] MEDS: Albumin Human 25% (100 mL) 25 GM/100 ML BAG IV (11:52)
[2023-03-22] MEDS: 0.9% Saline Lock 10 ML Syringe IV (11:52)
[2023-03-22 13:28] VITALS: BP 92/48; PULSE 90; RESP 16
== END | disposition home or self-care (01) ==
LOC: US 10:29
PROVIDERS: PCP Family Medicine; Referring Provider Internal Medicine Gastroenterology; Visit Provider Internal Medicine Gastroenterology
DX: K75.81 Nonalcoholic steatohepatitis (NASH) (principal)
CPT/HCPCS: 96365; 96366; 49083; J7050; P9046; A4216; P9047

== ENCOUNTER 2023-03-29 10:32 | Outpatient (CLI) | payer SELFPAY ==
--- NOTE | 2023-03-29 10:33 | US_ITS ---
PROCEDURE: Ultrasound guided paracentesis. DATE OF EXAMINATION: March 29, 2023. INDICATION: Female, 63 years old. Ascites. PHYSICIAN: Valeriano Hull M.D. TECHNIQUE: The risks, benefits, and alternatives to the procedure were explained to the patient. The specific risks of bleeding, infection, and damage to bowel were detailed and accepted. Witnessed informed consent was obtained. The abdomen was ultrasonographically surveyed. An appropriate pocket of fluid was identified at the right lower quadrant. The skin were cleaned and prepped in the usual sterile fashion. Using ultrasound guidance, the peritoneal cavity was accessed with a 5-Hong Konger paracentesis needle/catheter system. The trocar was removed. A total of 6100 ml of willis-colored fluid were removed from the peritoneal cavity. The catheter was removed and a sterile dressing was applied. The procedure was well tolerated. US/Paracentesis with US IMPRESSION: Ultrasound guided paracentesis. Electronically Signed: Valeriano Hull MD at 11:58 EDT ,
[2023-03-29 10:55] VITALS: BP 89/51; BP 89/54; BP 93/52; PULSE 75; PULSE 78; PULSE 82; RESP 18; TEMP 36.7; O2SAT 98; O2SAT 99
[2023-03-29] MEDS: Lidocaine 2% (20 ml mdv) 20 ML Vial INFILT (10:59)
[2023-03-29] MEDS: 0.9% Saline Lock 10 ML Syringe IV ×2 (11:37→11:53)
[2023-03-29 11:47] VITALS: PULSE 98; RESP 14; TEMP 35.9; O2SAT 95
[2023-03-29] MEDS: Albumin Human 25% (100 mL) 25 GM/100 ML BAG IV (11:53)
[2023-03-29] MEDS: Albumin Human 25% (50 mL) 12.5 GM/50 ML IV.SOLN IV (13:30)
[2023-03-29 14:33] VITALS: BP 84/41; PULSE 80; RESP 14; TEMP 36.4; O2SAT 99
== END 2023-03-29 23:59 | disposition home or self-care (01) ==
LOC: US 10:32
PROVIDERS: PCP Family Medicine; Referring Provider Internal Medicine Gastroenterology; Visit Provider Internal Medicine Gastroenterology
DX: K75.81 Nonalcoholic steatohepatitis (NASH) (principal)
CPT/HCPCS: 96365; 96366; 49083; J7050; P9046; P9047; A4216

== ENCOUNTER → 2023-04-05 | Outpatient (CLI) | payer SELFPAY ==
--- NOTE | 2023-04-05 10:37 | US_ITS ---
PROCEDURE: Ultrasound guided paracentesis. DATE OF EXAMINATION: April 05, 2023. INDICATION: Female, 63 years old. Ascites. PHYSICIAN: Valeriano Hull M.D. TECHNIQUE: The risks, benefits, and alternatives to the procedure were explained to the patient. The specific risks of bleeding, infection, and damage to bowel were detailed and accepted. Witnessed informed consent was obtained. The abdomen was ultrasonographically surveyed. An appropriate pocket of fluid was identified at the left lower quadrant. The skin were cleaned and prepped in the usual sterile fashion. Using ultrasound guidance, the peritoneal cavity was accessed with a 5-Kyrgyz paracentesis needle/catheter system. The trocar was removed. A total of 4950 ml of willis-colored fluid were removed from the peritoneal cavity. The catheter was removed and a sterile dressing was applied. The procedure was well tolerated. US/Paracentesis with US IMPRESSION: Ultrasound guided paracentesis. Electronically Signed: Valeriano Hull MD at 12:20 EDT ,
[2023-04-05] MEDS: Lidocaine 2% (20 ml mdv) 20 ML Vial INFILT (10:54)
[2023-04-05 10:59] VITALS: BP 100/63; BP 107/57; BP 109/56; PULSE 72; PULSE 74; PULSE 83; RESP 16; TEMP 36.5; O2SAT 97; O2SAT 98
== END | disposition home or self-care (01) ==
PROVIDERS: PCP Family Medicine; Referring Provider Internal Medicine Gastroenterology; Visit Provider Internal Medicine Gastroenterology
DX: K75.81 Nonalcoholic steatohepatitis (NASH) (principal)
CPT/HCPCS: 49083

== ENCOUNTER → 2023-04-12 | Outpatient (CLI) | payer SELFPAY ==
--- NOTE | 2023-04-12 10:34 | US_ITS ---
PROCEDURE: Ultrasound guided paracentesis. DATE OF EXAMINATION: April 12, 2023. INDICATION: Female, 63 years old. Ascites. PHYSICIAN: Valeriano Hull M.D. TECHNIQUE: The risks, benefits, and alternatives to the procedure were explained to the patient. The specific risks of bleeding, infection, and damage to bowel were detailed and accepted. Witnessed informed consent was obtained. The abdomen was ultrasonographically surveyed. An appropriate pocket of fluid was identified at the right lower quadrant. The skin were cleaned and prepped in the usual sterile fashion. Using ultrasound guidance, the peritoneal cavity was accessed with a 5-Portuguese paracentesis needle/catheter system. The trocar was removed. A total of 5400 ml of willis-colored fluid were removed from the peritoneal cavity. The catheter was removed and a sterile dressing was applied. The procedure was well tolerated. US/Paracentesis with US IMPRESSION: Ultrasound guided paracentesis. Electronically Signed: Valeriano Hull MD at 11:48 EDT ,
[2023-04-12 10:45] VITALS: BP 112/61; BP 116/68; BP 90/56; PULSE 85; PULSE 86; PULSE 92; RESP 16; TEMP 36.6; O2SAT 98
[2023-04-12] MEDS: Lidocaine 2% (20 ml mdv) 20 ML Vial INFILT (10:50)
[2023-04-12] MEDS: 0.9% Saline Lock 10 ML Syringe IV (11:15)
[2023-04-12] MEDS: Albumin Human 25% (100 mL) 25 GM/100 ML BAG IV (11:44)
[2023-04-12] MEDS: Albumin Human 25% (50 mL) 12.5 GM/50 ML IV.SOLN IV (13:09)
[2023-04-12 14:10] VITALS: BP 91/49; PULSE 82; RESP 16; TEMP 36.3
== END | disposition home or self-care (01) ==
LOC: US 10:32
PROVIDERS: PCP Family Medicine; Referring Provider Internal Medicine Gastroenterology; Visit Provider Internal Medicine Gastroenterology
DX: K75.81 Nonalcoholic steatohepatitis (NASH) (principal)
CPT/HCPCS: 96365; 96366; 49083; J7050; P9047

== ENCOUNTER 2023-04-17 23:46 | Emergency (ER) | payer SELFPAY ==
[2023-04-17 23:48] VITALS: BP 105/68; PULSE 122; RESP 20; TEMP 37.7; O2SAT 97
[2023-04-17 23:56] VITALS: BMI 30.5
[2023-04-17 23:58] VITALS: BP 101/65; PULSE 118; RESP 18; TEMP 38.1; O2SAT 94
[2023-04-18] VITALS (7 sets, daily range): BP systolic 82–105; BP diastolic 58–90; PULSE 102–133; RESP 16–20; TEMP 36.9–38.1; O2SAT 25–98
[2023-04-18 00:31] LABS: Absolute Lymphocyte Count 0.72 X10^3/uL (0.83-4.51); Absolute Neutrophil Count 4.5 X10^3/uL (2.0-7.7); Basophil# 0.03 X10^3/uL; Basophil% 0.5 % (0-1); Eosinophil# 0.01 X10^3/uL; Eosinophils% 0.2 % (0-5); Hematocrit 35.5 % (37-47); Hemoglobin 11.7 g/dL (12.0-15.0); Lymphocyte # 0.72 X10^3/ul (0.83-4.51); Lymphocyte % 12.2 % (19-41); Mean Corpuscular Hgb 29.9 pg (27.0-32.0); Mean Corpuscular Volume 90.8 fL (81-99); Mean Platelet Vol. 9.2 fl (6.2-12.0); Monocyte# 0.55 X10^3/uL; Monocyte% 9.4 % (0-10); NRBC Flagged by Analyzer 0 % (0-5); Neutrophil # 4.54 X10^3/uL (2.7-7.7); Neutrophil % 77.2 % (47-70); POSITIVE COUNT YES; Platelet Count 93 K/mm3 (150-450); RBC Distribution Width CV 14.7 % (11.6-14.6); Red Blood Count 3.91 M/mm3 (4.2-5.4); White Blood Count 5.9 K/mm3 (4.4-11.0)
[2023-04-18 00:38] LABS: International Normalized Ratio 1.7; Prothrombin Time (Protime)PT. 19.7 SECONDS (11.7-14.9)
[2023-04-18 00:39] LABS: Partial Thromboplast Time 39.3 Seconds (24.1-36.2)
--- NOTE | 2023-04-18 00:42 | CT_ITS ---
ACR Level 3 findings have been noted. An addendum which confirms receipt of the report will follow. EXAM: CT ABDOMEN AND PELVIS WITH INTRAVENOUS CONTRAST CLINICAL INDICATION: Abdominal pain TECHNIQUE: Helically acquired images were obtained of the abdomen and pelvis with intravenous contrast. CTDIvol = ( 13.42 ) mGy, DLP = ( 1097.27 ) mGycm This CT exam was performed using one or more of the following dose reduction techniques: automated exposure control, adjustment of the mA and/or kV according to patient size, and/or use of iterative reconstruction technique. CONTRAST: Oral and amp; IV Gastrografin and amp; 100mL [id number] COMPARISON: December 14, 2022 FINDINGS: LOWER THORAX: Right hemithorax volume loss with shift of the cardiomediastinal structures towards the right hemithorax along with chronic cystic changes involving the right lung base. Pleural parenchymal scarring at the inferior lingula. No significant pericardial effusion. ABDOMEN: LIVER: See below. GALLBLADDER AND BILE DUCTS: Unremarkable. No calcified gallstones. No gallbladder distention or wall edema. No intra- or extrahepatic biliary ductal dilation. PANCREAS: Unremarkable. No focal cystic or solid mass. SPLEEN: Unremarkable. Normal size without focal cystic or solid mass. ADRENALS: Unremarkable. No nodules. KIDNEYS AND URETERS: Unremarkable. Normal renal size and position. No hydronephrosis. STOMACH AND BOWEL: Midline lower abdominal wall hernia containing herniated small bowel loops. This is potentially incarcerated as well as potentially strangulated. Extensive anasarca. Cirrhosis. Main portal vein is patent. No stomach or bowel distention. No focal inflammatory change. PELVIS: APPENDIX: No evidence of acute appendicitis. BLADDER: Unremarkable. REPRODUCTIVE: Unremarkable as visualized. No adnexal masses. ABDOMEN and PELVIS: INTRAPERITONEAL SPACE: Extensive volume of abdominal and pelvic ascites. No free air. BONES/JOINTS: Unremarkable. No suspicious lytic or blastic abnormality. SOFT TISSUES: See above. VASCULATURE: Unremarkable. Abdominal aorta is non-dilated. LYMPH NODES: Unremarkable. No enlarged lymph nodes. CT/Abdomen/Pelvis WITH Contrast IMPRESSION: Incarcerated bowel associated with midline lower abdominal wall hernia is also potentially strangulated. Extensive ascites. Anasarca. Electronically Signed: Travon Nevarez MD at 3:52 EDT ,
[2023-04-18 00:50] LABS: ALB/GLOB Ratio 0.7 RATIO (0.9-2.4); AST(SGOT) 38 U/L (15-37); Alanine Aminotransfer ALT/SGPT 26 U/L (13-56); Albumin, Serum 2.7 g/dL (3.2-5.0); Alkaline Phosphatase 179 U/L (45-117); Anion Gap 6 (5-15); BUN 20 mg/dL (7-18); BUN/Creat Ratio 23.1 RATIO (10-20); Calcium,Total 7.5 mg/dL (8.5-10.1); Chloride 106 mmol/L (98-107); Creatinine, Serum 0.86 mg/dL (0.55-1.02); EST Glomerular Filtration Rate 71 mL/min (>60); Est Glom Filt Rate - Afr Amer 86 mL/min (>60); Estimated Creatinine Clearance 59.32 ml/min; Globulin 3.9 g/dL (2.2-4.2); Glucose 89 mg/dL (74-106); Protein, Total 6.6 g/dL (6.4-8.2); Sodium Level 136 mmol/L (136-145)
[2023-04-18 00:57] LABS: Lactic Acid 1.8 mmol/L (0.4-1.9)
[2023-04-18] MEDS: Ondansetron 4 MG/2 ML Vial IV ×2 (01:05→03:55)
[2023-04-18] MEDS: Morphine 4 MG/ML Syringe IV (01:05)
[2023-04-18] MEDS: Acetaminophen 500 MG Tablet 1000 MG PO (01:05)
[2023-04-18 01:06] LABS: Color, Urine Amber (Yellow); Glucose, Dipstick Normal (Normal); Leukocyte Esterase-Dipstick 25 /ul (Negative); Nitrite-Dipstick Positive (Negative); Occult Blood-Urine 25 /ul (Negative); Protein-Dipstick 100 mg/dl (Negative); Urine Bilirubin Dipstick 3 mg/dL (Negative); Urine Clarity Clear (Clear); Urine Urobilinogen 8 mg/dl (Normal)
[2023-04-18 01:07] LABS: Ketone-Dipstick 150 mg/dl (Negative)
[2023-04-18 01:16] LABS: Bacteria 2+ /hpf (None Seen); Mucous, Urine 1+ /hpf (<or=2+); White Blood Cells 0-5 SEEN /hpf (0-5)
[2023-04-18 01:17] LABS: Red Blood Cells-Urine 0-5 SEEN /hpf (0-5); Squamous Epithelial Cells - UA 5-10 SEEN /hpf (5-10)
--- NOTE | 2023-04-18 03:46 | EX.ED.DYSGE1 ---
HPI History of Present Illness Chief Complaint: Fever Informant: patient and family Onset/Context/Timing Onset: Yesterday Context: Gradual Onset Timing: Waxes and wanes Quality: Aching Location: Generalized Worsened by: Nothing Relieved by: Nothing Narrative Narrative: Patient presents with a fever and abdominal pain that began yesterday. Patient states it came on gradually. Patient states it has been waxing and waning. Patient describes her pain as aching. Patient states it is generalized over her abdomen. Patient states nothing makes it worse and nothing makes it better. Patient admits to subjective fevers. Patient also admits to a sore throat and a headache. Patient denies any nausea or vomiting. Patient denies any diarrhea. 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 [facility] Medical History Abdominal ascites Appendicitis Bronchitis Cholecystitis Chronic anemia Chronic cough Difficulty swallowing Emphysema lung Hypoxia Jaundice Lactic acidosis Loss of consciousness Lung bullae Nausea Non-smoker On home oxygen therapy Peripheral edema S/P abdominal paracentesis Shortness of breath on exertion Tuberculosis Uses wheelchair Walker as ambulation aid Wears glasses Home Medications albuterol sulfate 90 mcg/actuation aerosol inhaler 2 puff inhalation Q4H PRN WHEEZING, SOB 01/06/22 [History Last Taken Unknown] furosemide 40 mg tablet (Lasix) 80 mg PO BID #180 tabs 04/26/22 [Rx Last Taken Unknown] spironolactone 25 mg tablet 50 mg PO DAILY #180 tabs 04/26/22 [Rx Last Taken Unknown] lactulose 20 gram/30 mL oral solution 20 g (30 mL) PO BID #3,000 mL 07/24/22 [Rx Last Taken Unknown] pantoprazole 40 mg tablet,delayed release 40 mg PO DAILY #30 tabs 07/24/22 [Rx Last Taken Unknown] ondansetron 4 mg oral soluble film 4 mg PO Q12H PRN Nausea 10/05/22 [History Last Taken Unknown] rifampin 600 mg OTHER BID 10/05/22 [History Last Taken Unknown] lidocaine HCl 2 % mucosal solution (Lidocaine Viscous) 1 applic mucous membrane TID PRN pain #600 mL 11/06/22 [Rx Last Taken Unknown] ciprofloxacin HCl 500 mg tablet 500 mg PO BID #6 TABLETS 04/18/23 [Rx Last Taken Unknown] ondansetron 4 mg disintegrating tablet 4 mg PO Q8H PRN PRN Nausea #10 tabs 04/18/23 [Rx Last Taken Unknown] Allergy/AdvReac Type Severity Reaction Status Date / Time No Known Allergies Allergy Verified 04/17/23 23:50 Surgical History S/P laparoscopic cholecystectomy Social History Smoking Status: Never smoker alcohol intake: never substance use type: does not use ROS ROS ED Constitutional Constitutional ED: Reports fever(s); Denies chills Eyes Eyes: Denies blurry vision or change in vision ENT ENT ED: Reports sore throat; Denies rhinorrhea Cardiovascular Cardiovascular: Denies chest pain or palpitations Respiratory/Chest Respiratory/Chest: Denies cough or dyspnea Gastrointestinal Gastrointestinal: Reports abdominal pain; Denies nausea or vomiting Genitourinary Genitourinary ED: Denies dysuria or hematuria Musculoskeletal Musculoskeletal: Denies back pain or neck pain Integumentary Denies abscess or rash Neurologic Neurologic: Reports headache(s); Denies weakness Allergic/Immunologic Allergic/Immunologic ED: Denies mouth swelling or urticaria EXAM Physical Exam Const Vital Signs: 04/17/23 23:48 04/17/23 23:58 04/17/23 23:59 Temperature 99.9 F H 100.6 F H Temperature Source Temporal Oral Pulse Rate 122 H 118 H Respiratory Rate 20 H 18 Respiratory Effort Normal Respiratory Pattern Normal Blood Pressure 105/68 101/65 Blood Pressure Mean 80 77 Pulse Ox 97 94 Oxygen Delivery Method Room Air 04/18/23 01:02 04/18/23 01:03 04/18/23 03:15 Temperature 100.6 F H Temperature Source Temporal Pulse Rate 133 H 124 H Respiratory Rate 20 H 16 Respiratory Effort Respiratory Pattern Blood Pressure 102/74 96/65 Blood Pressure Mean 83 75 Pulse Ox 98 25 94 Oxygen Delivery Method Room Air 04/18/23 03:15 04/18/23 04:32 04/18/23 05:00 Temperature 98.6 F 98.5 F 98.5 F Temperature Source Temporal Temporal Temporal Pulse Rate 124 H 102 H 113 H Respiratory Rate 16 16 19 H Respiratory Effort Respiratory Pattern Blood Pressure 96/62 97/72 82/58 L Blood Pressure Mean 73 80 66 Pulse Ox 92 94 93 Oxygen Delivery Method 04/18/23 05:00 04/18/23 06:00 04/18/23 06:40 Temperature 98.4 F Temperature Source Temporal Pulse Rate 113 H 113 H Respiratory Rate 19 H 16 Respiratory Effort Respiratory Pattern Blood Pressure 82/58 L 105/90 H 105/90 H Blood Pressure Mean 66 95 Pulse Ox 93 94 Oxygen Delivery Method Positive well nourished and well developed General Appearance ED: well developed and NAD HEENT Reports moist mucous membranes Neck supple and no JVD Resp normal respiratory effort and clear to auscultation bilaterally Cardio regular rate, regular rhythm and no murmurs GI hepatosplenomegaly GI Narrative: There is a fluid wave noted. Inspection: abdominal distention Palpation: soft and tender epigastric, LLQ, RLQ, LUQ, RUQ, periumbilical and suprapubic; Negative for guarding or rebound tenderness present Extremity normal to inspection General Extremety ED: Negative for edema or tenderness General Extremity: Negative for edema Neuro oriented x3, CN's II-XII intact bilaterally and no sensory deficits noted Sensorium / Orientation: alert Motor Exam: strength 5/5 throughout Psych mental status grossly normal Skin no rashes or lesions noted MDM MDM MDM Narrative Medical decision making narrative: Differential diagnosis includes ascites, bowel obstruction, perforation, spontaneous bacterial peritonitis, gastroenteritis, and urinary tract infection. CBC will be obtained to assess for leukocytosis and anemia. Comprehensive metabolic profile will be obtained to assess for electrolyte abnormality, renal function, and hepatic function. PT with INR and PTT will be obtained to assess for coagulopathy. Serum lactate will be obtained to assess for sepsis. Obtained to assess for urinary tract infection. CT scan of the abdomen pelvis will be obtained to assess for bowel obstruction and perforation. COVID-19 rapid antigen will be obtained to assess for COVID infection. Influenza A and influenza B antigens will be obtained to assess for influenza infection. Blood cultures will be obtained to assess for sepsis. Urine culture will be obtained to assess for urinary tract infection. Lab Data Attestation: I reviewed the patient's lab results. Lab results narrative: CBC was reviewed. There is a mild anemia with a hemoglobin of 11.7 and hematocrit 35.5. Platelets were low at 93. White blood cell count was normal at 5.9. Comprehensive metabolic profile was reviewed. Total bilirubin was mildly elevated at 2.3. AST was 38. ALT was normal at 26. Alkaline phosphatase was slightly elevated at 179. Anion gap was normal at 6. Lactic acid was reviewed and was normal at 1.8. Urinalysis was reviewed and showed a leukocyte esterase of 25 with 0-5 white blood cells. There were positive nitrites. There were 5-10 epithelial cells. COVID-19 rapid antigen was reviewed and was negative. Influenza A and influenza B antigens were reviewed and were negative. Labs: Laboratory Results - last 24 hr 04/18/23 04/18/23 04/18/23 00:15 00:15 00:15 WBC 5.9 RBC 3.91 L Hgb 11.7 L Hct 35.5 L MCV 90.8 MCH 29.9 MCHC 33.0 RDW Std Deviation 49.0 H RDW Coeff of Blas 14.7 H Plt Count 93 L MPV 9.2 Immature Gran % (Auto) 0.500 Neut % (Auto) 77.2 H Lymph % (Auto) 12.2 L [place] % (Auto) 9.4 Eos % (Auto) 0.2 Baso % (Auto) 0.5 Absolute Neuts (auto) 4.5 Absolute Lymphs (auto) 0.72 L Nucleated RBC % 0 PT 19.7 H INR 1.7 APTT 39.3 H Sodium 136 Potassium 4.0 Chloride 106 Carbon Dioxide 24.0 Anion Gap 6 BUN 20 H Creatinine 0.86 Estim Creat Clear Calc 59.32 Est GFR (MDRD) Af Amer 86 Est GFR (MDRD) Non-Af 71 BUN/Creatinine Ratio 23.1 H Glucose 89 Lactic Acid Calcium 7.5 L Total Bilirubin 2.30 H AST 38 H ALT 26 Alkaline Phosphatase 179 H Total Protein 6.6 Albumin 2.7 L Globulin 3.9 Albumin/Globulin Ratio 0.7 L Urine Color Urine Clarity Urine pH Ur Specific [place] Urine Protein Urine Glucose (UA) Urine Ketones Urine Occult Blood Urine Nitrite Urine Bilirubin Urine Urobilinogen Ur Leukocyte Esterase Urine RBC Urine WBC Ur Squamous Epith Cells Urine Bacteria Urine Mucus 04/18/23 04/18/23 00:15 00:51 WBC RBC Hgb Hct MCV MCH MCHC RDW Std Deviation RDW Coeff of Blas Plt Count MPV Immature Gran % (Auto) Neut % (Auto) Lymph % (Auto) [place] % (Auto) Eos % (Auto) Baso % (Auto) Absolute Neuts (auto) Absolute Lymphs (auto) Nucleated RBC % PT INR APTT Sodium Potassium Chloride Carbon Dioxide Anion Gap BUN Creatinine Estim Creat Clear Calc Est GFR (MDRD) Af Amer Est GFR (MDRD) Non-Af BUN/Creatinine Ratio Glucose Lactic Acid 1.8 Calcium Total Bilirubin AST ALT Alkaline Phosphatase Total Protein Albumin Globulin Albumin/Globulin Ratio Urine Color Nicolle Urine Clarity Clear Urine pH 6.0 Ur Specific [place] 1.020 Urine Protein 100 H Urine Glucose (UA) Normal Urine Ketones 150 A* Urine Occult Blood 25 H Urine Nitrite Positive H Urine Bilirubin 3 H Urine Urobilinogen 8 H Ur Leukocyte Esterase 25 H Urine RBC 0-5 SEEN Urine WBC 0-5 SEEN Ur Squamous Epith Cells 5-10 SEEN Urine Bacteria 2+ Urine Mucus 1+ Radiography Diagnostic Testing: Clinical Impression(s) from Imaging Studies Abdomen/Pelvis CT 04/18/23 00:42 IMPRESSION: Incarcerated bowel associated with midline lower abdominal wall hernia is also potentially strangulated. Extensive ascites. Anasarca. Electronically Signed: Travon Nevarez MD at 3:52 EDT , ADDENDUM: 04/18/23 [id number] IMPRESSION: Incarcerated bowel associated with midline lower abdominal wall hernia is also potentially strangulated. Extensive ascites. Anasarca. N.B. : Dr. Brodie Morgan, DO, confirmed on 04/18/2023 04:04:37 (ET) that the healthcare facility has received the radiology report. Electronically Signed: Tarvon Nevarez MD at 3:52 EDT , ADDENDUM: 04/18/23 [id number] IMPRESSION: undefined CT scan of the abdomen pelvis was obtained. There is a ventral hernia in the lower abdomen that has some bowel loops in it. There is no distention of the bowel loops. This was interpreted by the radiologist and was also independently reviewed by myself. EKG Initial EKG: Attestation: I personally reviewed and interpreted this EKG as follows: Interpretation: No Acute Injury Pattern and Sinus Tachycardia (113) Comments: EKG was obtained. On my independent interpretation, it showed a sinus tachycardia with a rate of 113. NM interval, QRS interval, and QTc intervals were all normal. [place] was normal. There are no acute ST or T wave changes. Prior EKG tracings: available for review Prior: Unchanged (03/02/2022) Treatment and Re-Evaluation :: Patient was given a dose of Tylenol here. Patient was given morphine and Zofran. Patient was given a dose of Zosyn. Patient was also given a repeat dose of Zofran. On my reevaluation, patient did have some mild tenderness over the lower abdomen. The hernia was palpated and I was able to push some of the bowel into the abdomen. I am not sure that I pushed the entire hernia back into the abdomen or if some of it came back out after I was able to reduce some of it. Patient had no tenderness with manipulation of the hernia. Case was discussed with Dr. Finch. She reviewed the CT scan. She noted that patient did have a ventral hernia in November that appeared to be similar on the CT scan tonight. She does not feel that the hernia is incarcerated or strangulated. Dr. Finch was in to evaluate the patient. She stated that she was able to reduce the ventral hernia. Patient is feeling better on reevaluation. Patient was advised of her findings. Patient wants to go home. Patient was given prescription for Zofran and Cipro. Patient was instructed to follow-up with her primary care physician in 3 to 5 days. Patient was instructed return if worse in any way. Patient and family understood and were agreeable with the plan. All questions were answered. 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, Fever, Ventral hernia Instructions: ED Cirrhosis, ED Fever Control (Adult), ED Cystitis Female Adult Prescriptions: New ciprofloxacin HCl [ciprofloxacin HCl] 500 mg tablet 500 mg PO BID Qty: 6 0RF ondansetron [ondansetron] 4 mg tablet,disintegrating 4 mg PO Q8H PRN PRN (Reason: Nausea) Qty: 10 0RF No Action albuterol sulfate 90 mcg/actuation HFA aerosol inhaler 2 puff inhalation Q4H PRN (Reason: WHEEZING, SOB) Label Comments: INHALE 2 PUFFS BY MOUTH EVERY 4 HOURS NEEDED furosemide [Lasix] 40 mg tablet 80 mg PO BID Qty: 180 1RF spironolactone 25 mg tablet 50 mg PO DAILY Qty: 180 1RF pantoprazole 40 mg tablet,delayed release (DR/EC) 40 mg PO DAILY Qty: 30 5RF lactulose 20 gram/30 mL solution 20 g PO BID Qty: 3000 5RF rifampin 600 mg OTHER BID ondansetron 4 mg Film 4 mg PO Q12H PRN (Reason: Nausea) lidocaine HCl [Lidocaine Viscous] 2 % solution 1 applic mucous membrane TID PRN (Reason: pain) Qty: 600 0RF Primary Care Provider: Darlene Garibay Referrals: Darlene Garibay MD [Primary Care Provider] - 5-7 Days Terry Estrada DO [Med Staff - Active Staff] - 3-5 Days Disposition Disposition: Home, Self Care Discharge Date/Time: 04/18/23 06:41
--- NOTE | 2023-04-18 05:37 | EX.PCM.CON.S ---
Assessment & Plan Assessment/Plan (1) Ventral hernia: (2) Liver cirrhosis secondary to POWELL: PLAN: Plan Patient denies any abdominal exam prior to coming in or currently as translated by the patient's daughter. Patient has not incisional/umbilical hernia. Patient has had some nausea denies any vomiting did have flatus and a bowel movement prior to coming in. CT abdomen pelvis was personally reviewed appears to be similar to November 2022 there is no bowel seen in the CAT scan appears to be abdominal adipose as a bowel has contrast in it, which is different than the read of possible strangulation of bowel. This was reduced easily at bedside-and was only minimal the tender when reducing. No plans for patient's current surgical intervention to discuss with the patient and her daughter would not plan to repair this hernia due to her cirrhosis. Kenna Finch M.D. Pager: [phone] [facility] [address] [place] [address], [facility], [address] [place] [address] Office: [phone] HPI Consult Data Date of Consult: 04/18/23 HPI Narrative HPI Narrative: KIERRA FOSTER, is a 63 F who presents to the ER due to fever starting yesterday and body aches denies abdominal pain. Patient temperature here was 100.6 currently within normal limits. Patient is Kuwaiti-speaking translation via patient's daughter. Patient did have some nausea and vomiting but also had flatus and a bowel movement prior to coming in. Patient denies any pain at her known hernia site prior to coming in or currently. CT abdomen pelvis was done and shows a large amount of ascites called possible strangulation of bowel in the hernia however there is no sign of bowel obstruction and p.o. contrast was used?my read this appears similar to November 2022 and it is fat in the hernia with no obvious signs of strangulation but patient does have a large amount of ascites compared to previously but she has been getting paracentesis about weekly due to her cirrhosis due to [place]. ER physician did request an addendum from radiology they did say this this looks similar to November 2022 but this could possibly still be incarcerated or not. Patient also appears to have have UTI with positive nitrites and leuk esterase 2+ bacteria. [facility] Medical History Abdominal ascites Appendicitis Bronchitis Cholecystitis Chronic anemia Chronic cough Difficulty swallowing Emphysema lung Hypoxia Jaundice Lactic acidosis Loss of consciousness Lung bullae Nausea Non-smoker On home oxygen therapy Peripheral edema S/P abdominal paracentesis Shortness of breath on exertion Tuberculosis Uses wheelchair Walker as ambulation aid Wears glasses Home Medications albuterol sulfate 90 mcg/actuation aerosol inhaler 2 puff inhalation Q4H PRN WHEEZING, SOB 01/06/22 [History Last Taken Unknown] furosemide 40 mg tablet (Lasix) 80 mg PO BID #180 tabs 04/26/22 [Rx Last Taken Unknown] spironolactone 25 mg tablet 50 mg PO DAILY #180 tabs 04/26/22 [Rx Last Taken Unknown] lactulose 20 gram/30 mL oral solution 20 g (30 mL) PO BID #3,000 mL 07/24/22 [Rx Last Taken Unknown] pantoprazole 40 mg tablet,delayed release 40 mg PO DAILY #30 tabs 07/24/22 [Rx Last Taken Unknown] ondansetron 4 mg oral soluble film 4 mg PO Q12H PRN Nausea 10/05/22 [History Last Taken Unknown] rifampin 600 mg OTHER BID 10/05/22 [History Last Taken Unknown] lidocaine HCl 2 % mucosal solution (Lidocaine Viscous) 1 applic mucous membrane TID PRN pain #600 mL 11/06/22 [Rx Last Taken Unknown] Allergy/AdvReac Type Severity Reaction Status Date / Time No Known Allergies Allergy Verified 04/17/23 23:50 Surgical History S/P laparoscopic cholecystectomy Social History Smoking Status: Never smoker alcohol intake: never substance use type: does not use Physical Exam Const alert and no apparent distress HEENT normocephalic Resp normal respiratory effort Cardio Rate: regular rate GI soft to palpation and non-tender Inspection: abdominal distention Palpation: hernia other (Incisional/umbilical hernia about 1.5 cm in size- reduced, no erythema of the skin) Extremity normal to inspection Skin no jaundice Neuro CN's II-XII intact bilaterally Psych mental status grossly normal Lab / Micro Data Result Diagrams: 04/18/23 00:15 04/18/23 00:15 Labs: Laboratory Results - last 24 hr 04/18/23 00:15: WBC 5.9, RBC 3.91 L, Hgb 11.7 L, Hct 35.5 L, MCV 90.8, MCH 29.9, MCHC 33.0, RDW Std Deviation 49.0 H, RDW Coeff of Blas 14.7 H, Plt Count 93 L, MPV 9.2, Immature Gran % (Auto) 0.500, Neut % (Auto) 77.2 H, Lymph % (Auto) 12.2 L, [place] % (Auto) 9.4, Eos % (Auto) 0.2, Baso % (Auto) 0.5, Absolute Neuts (auto) 4.5, Absolute Lymphs (auto) 0.72 L, Nucleated RBC % 0 04/18/23 00:15: PT 19.7 H, INR 1.7, APTT 39.3 H 04/18/23 00:15: Sodium 136, Potassium 4.0, Chloride 106, Carbon Dioxide 24.0, Anion Gap 6, BUN 20 H, Creatinine 0.86, Estim Creat Clear Calc 59.32, Est GFR (MDRD) Af Amer 86, Est GFR (MDRD) Non-Af 71, BUN/Creatinine Ratio 23.1 H, Glucose 89, Calcium 7.5 L, Total Bilirubin 2.30 H, AST 38 H, ALT 26, Alkaline Phosphatase 179 H, Total Protein 6.6, Albumin 2.7 L, Globulin 3.9, Albumin/Globulin Ratio 0.7 L 04/18/23 00:15: Lactic Acid 1.8 04/18/23 00:51: Urine Color Nicolle, Urine Clarity Clear, Urine pH 6.0, Ur Specific [place] 1.020, Urine Protein 100 H, Urine Glucose (UA) Normal, Urine Ketones 150 A*, Urine Occult Blood 25 H, Urine Nitrite Positive H, Urine Bilirubin 3 H, Urine Urobilinogen 8 H, Ur Leukocyte Esterase 25 H, Urine RBC 0-5 SEEN, Urine WBC 0-5 SEEN, Ur Squamous Epith Cells 5-10 SEEN, Urine Bacteria 2+, Urine Mucus 1+ Micro: Microbiology 04/18/23 01:20 Nasal Secretion SARS-CoV-2 Antigen (Rapid) - Final 04/18/23 00:10 Interface Orders Influenza Types A,B Direct FA (ISAC) - Final Radiology Impression Abdomen/Pelvis CT 04/18/23 00:42 IMPRESSION: Incarcerated bowel associated with midline lower abdominal wall hernia is also potentially strangulated. Extensive ascites. Anasarca. Electronically Signed: Travon Nevarez MD at 3:52 EDT , ADDENDUM: 04/18/23 0411 IMPRESSION: Incarcerated bowel associated with midline lower abdominal wall hernia is also potentially strangulated. Extensive ascites. Anasarca. N.B. : Dr. Brodie Morgan DO, confirmed on 04/18/2023 04:04:37 (ET) that the healthcare facility has received the radiology report. Electronically Signed: Travon Nevarez MD at 3:52 EDT , ADDENDUM: 04/18/23 0447 IMPRESSION: undefined Charges/Coding Visit Charges Inpatient E&M: 38418 Init Hosp L3
--- NOTE | 2023-04-18 13:54 | ED.RN ---
THIS RN RECEIVED POSITIVE BLOOD CULTURE RESULTS FROM LAB. PRELIMINARY RESULTS REVIEWED BY DR. DE LEÓN WHO RECOMMENDS PT RETURN TO THE ED AND BE RE-EVALUATED. THIS RN CALLED PT AND INFORMED HER OF RESULTS AND PHYSICIAN RECOMMENDATION TO RETURN TO THE ED FOR RE-EVALUATION.
== END 2023-04-18 06:41 | disposition home or self-care (01) ==
PROVIDERS: Emergency Provider Emergency Medicine; PCP Family Medicine; Visit Provider Emergency Medicine
DX: N39.0 Urinary tract infection, site not specified (principal); K74.60 Unspecified cirrhosis of liver; K75.81 Nonalcoholic steatohepatitis (NASH); K43.9 Ventral hernia without obstruction or gangrene; R10.9 Unspecified abdominal pain; R50.9 Fever, unspecified; A15.9 Respiratory tuberculosis unspecified
CPT/HCPCS: 74177; 80053; 81001; 83605; 85025; 85610; 85730; 87040; 87077; 87086; 87088; 87149; 87186; 87804; 87811; 93005; 96365; 96366; 96375; 96376; 99284; J7050; Q9967; A4216; J2405

== ENCOUNTER → 2023-04-19 | Outpatient (CLI) | payer SELFPAY ==
--- NOTE | 2023-04-19 10:15 | US_ITS ---
PROCEDURE: Ultrasound guided paracentesis. DATE OF EXAMINATION: 04/19/2023. INDICATION: Female, 63 years old. Ascites. PHYSICIAN: Rafita Luis DO TECHNIQUE: The risks, benefits, and alternatives to the procedure were explained to the patient. The specific risks of bleeding, infection, and damage to bowel were detailed and accepted. Witnessed informed consent was obtained. The abdomen was ultrasonographically surveyed. An appropriate pocket of fluid was identified at the right lower quadrant. The skin were cleaned and prepped in the usual sterile fashion. Using ultrasound guidance, the peritoneal cavity was accessed with a 5-Faroese paracentesis needle/catheter system. The trocar was removed. A total of 5500 ml of clear straw colored fluid were removed from the peritoneal cavity. The catheter was removed and a sterile dressing was applied. The procedure was well tolerated. The patient was discharged home in stable condition. US/Paracentesis with US IMPRESSION: Ultrasound guided therapeutic paracentesis. Electronically Signed: Rafita Luis DO at 11:41 EDT ,
[2023-04-19 10:43] VITALS: BP 93/58; BP 94/51; BP 95/56; PULSE 85; PULSE 86; PULSE 87; RESP 16; TEMP 36.6; O2SAT 95; O2SAT 96
[2023-04-19] MEDS: Lidocaine 2% (20 ml mdv) 20 ML Vial INFILT (10:51)
[2023-04-19 11:41] VITALS: BP 88/49; PULSE 76; RESP 16; TEMP 36.1; O2SAT 98; BMI 25.7
[2023-04-19] MEDS: Albumin Human 25% (100 mL) 25 GM/100 ML BAG IV (11:57)
[2023-04-19] MEDS: 0.9% Saline Lock 10 ML Syringe IV (11:57)
[2023-04-19] MEDS: Albumin Human 25% (50 mL) 12.5 GM/50 ML IV.SOLN IV (13:23)
== END | disposition home or self-care (01) ==
LOC: US 10:14
PROVIDERS: PCP Family Medicine; Referring Provider Internal Medicine Gastroenterology; Visit Provider Internal Medicine Gastroenterology
DX: K75.81 Nonalcoholic steatohepatitis (NASH) (principal)
CPT/HCPCS: 96365; 96366; 49083; J7050; P9047

== ENCOUNTER → 2023-04-26 | Outpatient (CLI) | payer SELFPAY ==
--- NOTE | 2023-04-26 12:08 | US_ITS ---
PROCEDURE: Ultrasound guided paracentesis. DATE OF EXAMINATION: April 26, 2023. INDICATION: Female, 63 years old. Ascites. PHYSICIAN: Valeriano Hull M.D. TECHNIQUE: The risks, benefits, and alternatives to the procedure were explained to the patient. The specific risks of bleeding, infection, and damage to bowel were detailed and accepted. Witnessed informed consent was obtained. The abdomen was ultrasonographically surveyed. An appropriate pocket of fluid was identified at the right lower quadrant. The skin were cleaned and prepped in the usual sterile fashion. Using ultrasound guidance, the peritoneal cavity was accessed with a 5-Estonian paracentesis needle/catheter system. The trocar was removed. A total of 5850 ml of willis-colored fluid were removed from the peritoneal cavity. The catheter was removed and a sterile dressing was applied. The procedure was well tolerated. US/Paracentesis with US IMPRESSION: Ultrasound guided paracentesis. Electronically Signed: Valeriano Hull MD at 8:19 EDT ,
[2023-04-26 12:30] VITALS: BP 112/50; BP 87/47; BP 92/50; BP 92/52; BP 97/49; PULSE 76; PULSE 83; PULSE 84; PULSE 88; RESP 16; TEMP 36.3; O2SAT 100; O2SAT 97; O2SAT 98; O2SAT 99
[2023-04-26] MEDS: Lidocaine 2% (20 ml mdv) 20 ML Vial INFILT (12:35)
== END | disposition home or self-care (01) ==
PROVIDERS: PCP Family Medicine; Referring Provider Internal Medicine Gastroenterology; Visit Provider Internal Medicine Gastroenterology
DX: K75.81 Nonalcoholic steatohepatitis (NASH) (principal)
CPT/HCPCS: 49083; A4216

== ENCOUNTER → 2023-05-03 | Outpatient (CLI) | payer SELFPAY ==
--- NOTE | 2023-05-03 10:32 | US_ITS ---
PROCEDURE: Ultrasound guided paracentesis. DATE OF EXAMINATION: May 03, 2023. INDICATION: Female, 63 years old. Ascites. PHYSICIAN: Valeriano Hull M.D. TECHNIQUE: The risks, benefits, and alternatives to the procedure were explained to the patient. The specific risks of bleeding, infection, and damage to bowel were detailed and accepted. Witnessed informed consent was obtained. The abdomen was ultrasonographically surveyed. An appropriate pocket of fluid was identified at the left lower quadrant. The skin were cleaned and prepped in the usual sterile fashion. Using ultrasound guidance, the peritoneal cavity was accessed with a 5-Serbian paracentesis needle/catheter system. The trocar was removed. A total of 6600 ml of willis-colored fluid were removed from the peritoneal cavity. The catheter was removed and a sterile dressing was applied. The procedure was well tolerated. US/Paracentesis with US IMPRESSION: Ultrasound guided paracentesis. Electronically Signed: Valeriano Hull MD at 12:10 EDT ,
[2023-05-03 10:54] VITALS: BP 100/60; BP 101/61; BP 103/63; PULSE 79; PULSE 80; PULSE 87; RESP 18; TEMP 36.8; O2SAT 98
[2023-05-03] MEDS: Lidocaine 2% (20 ml mdv) 20 ML Vial INFILT (11:00)
[2023-05-03] MEDS: 0.9% Saline Lock 10 ML Syringe IV (11:30)
[2023-05-03 11:44] VITALS: BP 97/45; PULSE 73; RESP 16; TEMP 36.3; O2SAT 98; BMI 25.7
[2023-05-03] MEDS: Albumin Human 25% (100 mL) 25 GM/100 ML BAG IV (11:49)
[2023-05-03] MEDS: Albumin Human 25% (50 mL) 12.5 GM/50 ML IV.SOLN IV (13:17)
[2023-05-03 14:18] VITALS: BP 90/49; PULSE 63
== END | disposition home or self-care (01) ==
LOC: US 10:31
PROVIDERS: PCP Family Medicine; Referring Provider Internal Medicine Gastroenterology; Visit Provider Internal Medicine Gastroenterology
DX: K75.81 Nonalcoholic steatohepatitis (NASH) (principal)
CPT/HCPCS: 96365; 96366; 49083; J7050; P9047

== ENCOUNTER → 2023-05-10 | Outpatient (CLI) | payer SELFPAY ==
--- NOTE | 2023-05-10 10:13 | US_ITS ---
PROCEDURE: Ultrasound guided paracentesis. DATE OF EXAMINATION: May 10, 2023. INDICATION: Female, 63 years old. Ascites. PHYSICIAN: Valeriano Hull M.D. TECHNIQUE: The risks, benefits, and alternatives to the procedure were explained to the patient. The specific risks of bleeding, infection, and damage to bowel were detailed and accepted. Witnessed informed consent was obtained. The abdomen was ultrasonographically surveyed. An appropriate pocket of fluid was identified at the left lower quadrant. The skin were cleaned and prepped in the usual sterile fashion. Using ultrasound guidance, the peritoneal cavity was accessed with a 5-Indonesian paracentesis needle/catheter system. The trocar was removed. A total of 7100 ml of willis-colored fluid were removed from the peritoneal cavity. The catheter was removed and a sterile dressing was applied. The procedure was well tolerated. US/Paracentesis with US IMPRESSION: Ultrasound guided paracentesis. Electronically Signed: Valeriano Hull MD at 12:11 EDT ,
[2023-05-10 10:35] VITALS: BP 103/48; BP 112/61; BP 92/48; BP 94/57; PULSE 71; PULSE 74; PULSE 75; RESP 16; RESP 18; TEMP 36.3; O2SAT 98; O2SAT 99
[2023-05-10] MEDS: Lidocaine 2% (20 ml mdv) 20 ML Vial INFILT (10:40)
[2023-05-10] MEDS: 0.9% Saline Lock 10 ML Syringe IV ×2 (10:58→11:40)
[2023-05-10 11:30] VITALS: BP 97/47; PULSE 70; RESP 16; TEMP 36.1; O2SAT 98; BMI 25.7
[2023-05-10] MEDS: Albumin Human 25% (100 mL) 25 GM/100 ML BAG IV (11:39)
[2023-05-10] MEDS: Albumin Human 25% (50 mL) 12.5 GM/50 ML IV.SOLN IV (13:22)
[2023-05-10 14:17] VITALS: BP 95/53; PULSE 76; RESP 16
== END | disposition home or self-care (01) ==
PROVIDERS: PCP Family Medicine; Referring Provider Internal Medicine Gastroenterology; Visit Provider Internal Medicine Gastroenterology
DX: K75.81 Nonalcoholic steatohepatitis (NASH) (principal)
CPT/HCPCS: 96365; 96366; 49083; J7050; P9047

== ENCOUNTER → 2023-05-16 | Outpatient (CLI) | payer SELFPAY ==
--- NOTE | 2023-05-16 08:00 | US_ITS ---
PROCEDURE: ULTRASOUND-GUIDED PARACENTESIS REASON FOR EXAM: Female, 63 years old. Ascites. CONSENT: Procedure performed by myself after obtaining detailed informed consent from the patient. Her daughter assisted as program evaluation consultant. COMPARISON: Ultrasound guided paracentesis May 10, 2023. 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 TECHNIQUE: With the patient in a recumbent position, real-time sonography demonstrated moderate to large volume ascites. A site at the lateral right flank was marked. A timeout was performed. Patient''s right flank was prepped and draped using sterile technique. I infiltrated the tissues with 2% lidocaine for local anesthesia. A 5 Amharic centesis needle was advanced through the tissues of the abdominal wall to the peritoneal cavity. At the conclusion of the procedure, the catheter was removed. The site was cleansed and dressed. She tolerated the procedure without complication, and left the Radiology Department in stable condition. FINDINGS: 5300 mL of clear yellow ascites fluid were removed. Her vital signs remained stable throughout the exam. US/Paracentesis with US IMPRESSION: Ultrasound guided paracentesis. Electronically Signed: Lucian Penn MD at 9:57 EDT Reading Location ID and State: [id number] / Unknown , Service support ,
[2023-05-16] MEDS: Lidocaine 2% (20 ml mdv) 20 ML Vial INFILT (08:45)
[2023-05-16 08:53] VITALS: BP 101/59; BP 109/62; BP 117/51; PULSE 71; PULSE 75; PULSE 76; RESP 18; TEMP 36.8; O2SAT 97; O2SAT 98
[2023-05-16] MEDS: 0.9% Saline Lock 10 ML Syringe IV ×2 (09:20→10:04)
[2023-05-16] MEDS: Albumin Human 25% (100 mL) 25 GM/100 ML BAG IV (10:03)
[2023-05-16] MEDS: Albumin Human 25% (50 mL) 12.5 GM/50 ML IV.SOLN IV (11:22)
[2023-05-16 12:32] VITALS: BP 88/46; PULSE 77; RESP 16; TEMP 36.3; O2SAT 100
== END | disposition home or self-care (01) ==
LOC: US 08:21
PROVIDERS: PCP Family Medicine; Referring Provider Internal Medicine Gastroenterology; Visit Provider Internal Medicine Gastroenterology
DX: K75.81 Nonalcoholic steatohepatitis (NASH) (principal)
CPT/HCPCS: 96365; 96366; 49083; J7050; P9047; A4216

== ENCOUNTER → 2023-05-24 | Outpatient (CLI) | payer SELFPAY ==
--- NOTE | 2023-05-24 10:26 | US_ITS ---
PROCEDURE: Ultrasound guided paracentesis. DATE OF EXAMINATION: May 24, 2023. INDICATION: Female, 63 years old. Ascites. PHYSICIAN: Valeriano Hull M.D. TECHNIQUE: The risks, benefits, and alternatives to the procedure were explained to the patient. The specific risks of bleeding, infection, and damage to bowel were detailed and accepted. Witnessed informed consent was obtained. The abdomen was ultrasonographically surveyed. An appropriate pocket of fluid was identified at the right lower quadrant. The skin were cleaned and prepped in the usual sterile fashion. Using ultrasound guidance, the peritoneal cavity was accessed with a 5-Syriac paracentesis needle/catheter system. The trocar was removed. A total of 6150 ml of willis-colored fluid were removed from the peritoneal cavity. The catheter was removed and a sterile dressing was applied. The procedure was well tolerated. US/Paracentesis with US IMPRESSION: Ultrasound guided paracentesis. Electronically Signed: Valeriano Hull MD at 12:36 EDT ,
[2023-05-24 10:44] VITALS: BP 87/48; BP 90/49; BP 92/59; BP 97/60; PULSE 80; PULSE 81; PULSE 90; RESP 16; TEMP 36.4; O2SAT 100; O2SAT 99
[2023-05-24] MEDS: Lidocaine 2% (20 ml mdv) 20 ML Vial INFILT (10:47)
[2023-05-24] MEDS: 0.9% NaCl Peripheral Flush Adult/Peds IV (11:46)
[2023-05-24] MEDS: Albumin Human 25% (100 mL) 25 GM/100 ML BAG IV (11:46)
[2023-05-24 11:47] VITALS: BP 90/50; PULSE 72; RESP 16; TEMP 36; O2SAT 99; BMI 24.9
[2023-05-24] MEDS: Albumin Human 25% (50 mL) 12.5 GM/50 ML IV.SOLN IV (13:09)
[2023-05-24 14:10] VITALS: BP 85/47; PULSE 74; RESP 16; TEMP 35.9; O2SAT 98
== END | disposition home or self-care (01) ==
LOC: US 10:26
PROVIDERS: PCP Family Medicine; Referring Provider Internal Medicine Gastroenterology; Visit Provider Internal Medicine Gastroenterology
DX: K75.81 Nonalcoholic steatohepatitis (NASH) (principal)
CPT/HCPCS: 96365; 96366; 49083; J7050; P9047

== ENCOUNTER → 2023-05-30 | Outpatient (CLI) | payer SELFPAY ==
--- NOTE | 2023-05-30 08:16 | US_ITS ---
PROCEDURE: Ultrasound guided paracentesis. DATE OF EXAMINATION: May 30, 2023.. INDICATION: Female, 63 years old. Ascites. PHYSICIAN: Valeriano Hull M.D. TECHNIQUE: The risks, benefits, and alternatives to the procedure were explained to the patient. The specific risks of bleeding, infection, and damage to bowel were detailed and accepted. Witnessed informed consent was obtained. The abdomen was ultrasonographically surveyed. An appropriate pocket of fluid was identified at the right lower quadrant. The skin were cleaned and prepped in the usual sterile fashion. Using ultrasound guidance, the peritoneal cavity was accessed with a 5-Yakut paracentesis needle/catheter system. The trocar was removed. A total of 3250 ml of willis-colored fluid were removed from the peritoneal cavity. The catheter was removed and a sterile dressing was applied. The procedure was well tolerated. US/Paracentesis with US IMPRESSION: Ultrasound guided paracentesis. Electronically Signed: Valeriano Hull MD at 9:36 EDT ,
[2023-05-30 08:27] VITALS: BP 103/64; BP 89/52; BP 94/53; BP 99/58; PULSE 77; PULSE 79; PULSE 85; RESP 16; TEMP 37; O2SAT 100; O2SAT 97; O2SAT 99
[2023-05-30] MEDS: Lidocaine 2% (20 ml mdv) 20 ML Vial INFILT (08:30)
== END | disposition home or self-care (01) ==
PROVIDERS: PCP Family Medicine; Referring Provider Internal Medicine Gastroenterology; Visit Provider Internal Medicine Gastroenterology
DX: K75.81 Nonalcoholic steatohepatitis (NASH) (principal)
CPT/HCPCS: 49083

== ENCOUNTER → 2023-06-07 | Outpatient (CLI) | payer SELFPAY ==
--- NOTE | 2023-06-07 09:56 | US_ITS ---
PROCEDURE: Ultrasound guided paracentesis. DATE OF EXAMINATION: June 07, 2023.. INDICATION: Female, 63 years old. Ascites. PHYSICIAN: Valeriano Hull M.D. TECHNIQUE: The risks, benefits, and alternatives to the procedure were explained to the patient. The specific risks of bleeding, infection, and damage to bowel were detailed and accepted. Witnessed informed consent was obtained. The abdomen was ultrasonographically surveyed. An appropriate pocket of fluid was identified at the left lower quadrant. The skin were cleaned and prepped in the usual sterile fashion. Using ultrasound guidance, the peritoneal cavity was accessed with a 5-Mohawk paracentesis needle/catheter system. The trocar was removed. A total of 4450 ml of willis-colored fluid were removed from the peritoneal cavity. The catheter was removed and a sterile dressing was applied. The procedure was well tolerated. US/Paracentesis with US IMPRESSION: Ultrasound guided paracentesis. Electronically Signed: Valeriano Hull MD at 12:11 EDT ,
[2023-06-07] MEDS: Lidocaine 2% (20 ml mdv) 20 ML Vial INFILT (10:22)
[2023-06-07 10:29] VITALS: BP 85/52; BP 89/51; BP 91/53; BP 92/51; PULSE 76; PULSE 83; PULSE 85; PULSE 86; RESP 16; RESP 18; TEMP 36.8; O2SAT 97; O2SAT 98
[2023-06-07 11:26] LABS: Absolute Lymphocyte Count 0.81 X10^3/uL (0.83-4.51); Absolute Neutrophil Count 1.8 X10^3/uL (2.0-7.7); Basophil# 0.01 X10^3/uL; Basophil% 0.3 % (0-1); Eosinophil# 0.08 X10^3/uL; Eosinophils% 2.6 % (0-5); Hematocrit 33.4 % (37-47); Hemoglobin 10.4 g/dL (12.0-15.0); Lymphocyte # 0.81 X10^3/ul (0.83-4.51); Lymphocyte % 26.5 % (19-41); Mean Corp Hgb Conc 31.1 g/dL (32-36); Mean Corpuscular Hgb 29.5 pg (27.0-32.0); Mean Corpuscular Volume 94.6 fL (81-99); Mean Platelet Vol. 9.9 fl (6.2-12.0); Monocyte# 0.32 X10^3/uL; Monocyte% 10.5 % (0-10); NRBC Flagged by Analyzer 0 % (0-5); Neutrophil # 1.82 X10^3/uL (2.7-7.7); Neutrophil % 59.4 % (47-70); POSITIVE COUNT YES; Platelet Count 92 K/mm3 (150-450); RBC Distribution Width CV 15.6 % (11.6-14.6); RBC Distribution Width SD 54.3 fl (35.1-43.9); Red Blood Count 3.53 M/mm3 (4.2-5.4); White Blood Count 3.1 K/mm3 (4.4-11.0)
[2023-06-07 11:32] LABS: International Normalized Ratio 1.7; Prothrombin Time (Protime)PT. 19.8 SECONDS (11.7-14.9)
[2023-06-07 11:53] LABS: ALB/GLOB Ratio 0.6 RATIO (0.9-2.4); AST(SGOT) 34 U/L (15-37); Alanine Aminotransfer ALT/SGPT 25 U/L (13-56); Albumin, Serum 2.3 g/dL (3.2-5.0); Alkaline Phosphatase 168 U/L (45-117); Anion Gap 2 (5-15); BUN 13 mg/dL (7-18); BUN/Creat Ratio 16.5 RATIO (10-20); Calcium,Total 7.4 mg/dL (8.5-10.1); Chloride 104 mmol/L (98-107); Creatinine, Serum 0.79 mg/dL (0.55-1.02); EST Glomerular Filtration Rate 79 mL/min (>60); Est Glom Filt Rate - Afr Amer 95 mL/min (>60); Globulin 3.9 g/dL (2.2-4.2); Glucose 153 mg/dL (74-106); Potassium 3.8 mmol/L (3.5-5.1); Protein, Total 6.2 g/dL (6.4-8.2); Sodium Level 138 mmol/L (136-145)
== END | disposition home or self-care (01) ==
PROVIDERS: PCP Family Medicine; Referring Provider Internal Medicine Gastroenterology; Visit Provider Internal Medicine Gastroenterology
DX: K72.90 Hepatic failure, unspecified without coma (principal); K74.60 Unspecified cirrhosis of liver
CPT/HCPCS: 49083; 80053; 85025; 85610

== ENCOUNTER → 2023-06-14 | Outpatient (CLI) | payer SELFPAY ==
--- NOTE | 2023-06-14 10:27 | US_ITS ---
PROCEDURE: Ultrasound guided paracentesis. DATE OF EXAMINATION: June 14, 2023.. INDICATION: Female, 63 years old. Ascites. PHYSICIAN: Valeriano Hull M.D. TECHNIQUE: The risks, benefits, and alternatives to the procedure were explained to the patient. The specific risks of bleeding, infection, and damage to bowel were detailed and accepted. Witnessed informed consent was obtained. The abdomen was ultrasonographically surveyed. An appropriate pocket of fluid was identified at the left lower quadrant. The skin were cleaned and prepped in the usual sterile fashion. Using ultrasound guidance, the peritoneal cavity was accessed with a 5-Greenlandic paracentesis needle/catheter system. The trocar was removed. A total of 5850 ml of willis-colored fluid were removed from the peritoneal cavity. The catheter was removed and a sterile dressing was applied. The procedure was well tolerated. US/Paracentesis with US IMPRESSION: Ultrasound guided paracentesis. Electronically Signed: Valeriano Hull MD at 11:58 EDT ,
[2023-06-14 10:46] VITALS: BP 101/56; BP 98/58; BP 98/61; PULSE 67; PULSE 69; PULSE 75; RESP 18; TEMP 36.8; O2SAT 100; O2SAT 99
[2023-06-14] MEDS: Lidocaine 2% (20 ml mdv) 20 ML Vial INFILT (10:50)
[2023-06-14] MEDS: 0.9% Saline Lock 10 ML Syringe IV ×2 (11:12→11:41)
[2023-06-14] MEDS: Albumin Human 25% (100 mL) 25 GM/100 ML BAG IV (11:41)
[2023-06-14 11:42] VITALS: BP 90/49; PULSE 60; RESP 16; TEMP 35.9; O2SAT 99; BMI 31.4
[2023-06-14] MEDS: Albumin Human 25% (50 mL) 12.5 GM/50 ML IV.SOLN IV (13:05)
[2023-06-14 14:16] VITALS: BP 94/79; PULSE 73; RESP 16; TEMP 36.1; O2SAT 100
== END | disposition home or self-care (01) ==
LOC: US 10:26
PROVIDERS: PCP Family Medicine; Referring Provider Internal Medicine Gastroenterology; Visit Provider Internal Medicine Gastroenterology
DX: K75.81 Nonalcoholic steatohepatitis (NASH) (principal)
CPT/HCPCS: 96365; 96366; 49083; J7050; P9047; A4216

== ENCOUNTER → 2023-06-21 | Outpatient (CLI) | payer SELFPAY ==
--- NOTE | 2023-06-21 10:22 | US_ITS ---
PROCEDURE: Ultrasound guided paracentesis. DATE OF EXAMINATION: 06/21/2023. INDICATION: Female, 63 years old. Ascites. PHYSICIAN: Rafita Luis DO TECHNIQUE: The risks, benefits, and alternatives to the procedure were explained to the patient, with her daughter present as brain surgeon. The specific risks of bleeding, infection, and damage to bowel were detailed and accepted. Witnessed informed consent was obtained. The abdomen was ultrasonographically surveyed. An appropriate pocket of fluid was identified at the left lower quadrant. The skin were cleaned and prepped in the usual sterile fashion. Using ultrasound guidance, the peritoneal cavity was accessed with a 5-Northern Irish paracentesis needle/catheter system. The trocar was removed. A total of 6500 ml of clear straw colored ascites fluid were removed from the peritoneal cavity. The catheter was removed and a sterile dressing was applied. The procedure was well tolerated. The patient was discharged home in stable condition. US/Paracentesis with US IMPRESSION: Ultrasound guided therapeutic paracentesis. Electronically Signed: Rafita Luis DO at 13:16 EDT ,
[2023-06-21 10:36] VITALS: BP 100/69; BP 102/61; BP 110/62; BP 93/52; PULSE 82; PULSE 83; PULSE 84; RESP 16; TEMP 36.8; O2SAT 95; O2SAT 96; O2SAT 99
[2023-06-21] MEDS: Lidocaine 2% (20 ml mdv) 20 ML Vial INFILT (10:37)
[2023-06-21 12:03] VITALS: BP 86/50; PULSE 74; RESP 16; TEMP 36.7; O2SAT 96; BMI 26.5
[2023-06-21] MEDS: 0.9% NaCl Peripheral Flush Adult/Peds IV (12:20)
[2023-06-21] MEDS: Albumin Human 25% (100 mL) 25 GM/100 ML BAG IV (12:27)
[2023-06-21] MEDS: Albumin Human 25% (50 mL) 12.5 GM/50 ML IV.SOLN IV (13:56)
[2023-06-21 15:00] VITALS: BP 89/51; PULSE 79; RESP 14; TEMP 36.8; O2SAT 99
== END | disposition home or self-care (01) ==
LOC: US 10:21
PROVIDERS: PCP Family Medicine; Referring Provider Internal Medicine Gastroenterology; Visit Provider Internal Medicine Gastroenterology
DX: K75.81 Nonalcoholic steatohepatitis (NASH) (principal)
CPT/HCPCS: 96365; 96366; 49083; J7050; P9047

== ENCOUNTER → 2023-06-28 | Outpatient (CLI) | payer SELFPAY ==
--- NOTE | 2023-06-28 10:31 | US_ITS ---
PROCEDURE: Ultrasound guided paracentesis. DATE OF EXAMINATION: June 28, 2023.. INDICATION: Female, 63 years old. Ascites. PHYSICIAN: Valeriano Hull M.D. TECHNIQUE: The risks, benefits, and alternatives to the procedure were explained to the patient. The specific risks of bleeding, infection, and damage to bowel were detailed and accepted. Witnessed informed consent was obtained. The abdomen was ultrasonographically surveyed. An appropriate pocket of fluid was identified at the right lower quadrant. The skin were cleaned and prepped in the usual sterile fashion. Using ultrasound guidance, the peritoneal cavity was accessed with a 5-Malagasy paracentesis needle/catheter system. The trocar was removed. A total of 6950 ml of willis-colored fluid were removed from the peritoneal cavity. The catheter was removed and a sterile dressing was applied. The procedure was well tolerated. US/Paracentesis with US IMPRESSION: Ultrasound guided paracentesis. Electronically Signed: Valeriano Hull MD at 12:00 EDT ,
[2023-06-28 10:46] VITALS: BP 100/55; BP 90/54; BP 92/57; BP 94/58; PULSE 75; PULSE 79; PULSE 80; PULSE 88; RESP 18; TEMP 36.4; O2SAT 95; O2SAT 98; O2SAT 99
[2023-06-28] MEDS: Lidocaine 2% (20 ml mdv) 20 ML Vial INFILT (10:50)
[2023-06-28] MEDS: 0.9% Saline Lock 10 ML Syringe IV ×2 (11:29→12:11)
[2023-06-28 12:08] VITALS: BP 85/46; PULSE 74; RESP 16; TEMP 36.3; O2SAT 100; BMI 26.5
[2023-06-28] MEDS: Albumin Human 25% (100 mL) 25 GM/100 ML BAG IV (12:08)
[2023-06-28] MEDS: Albumin Human 25% (50 mL) 12.5 GM/50 ML IV.SOLN IV (13:48)
[2023-06-28 14:57] VITALS: BP 91/47; PULSE 82
== END | disposition home or self-care (01) ==
LOC: US 10:31
PROVIDERS: PCP Family Medicine; Referring Provider Internal Medicine Gastroenterology; Visit Provider Internal Medicine Gastroenterology
DX: K75.81 Nonalcoholic steatohepatitis (NASH) (principal); R18.8 Other ascites
CPT/HCPCS: 96365; 96366 ×2; 49083; J7050; P9047; A4216

== ENCOUNTER → 2023-07-06 | Outpatient (CLI) | payer SELFPAY ==
--- NOTE | 2023-07-06 08:33 | US_ITS ---
PROCEDURE: Ultrasound guided paracentesis. DATE OF EXAMINATION: July 06, 2023. INDICATION: Female, 63 years old. Ascites. PHYSICIAN: Valeriano Hull M.D. TECHNIQUE: The risks, benefits, and alternatives to the procedure were explained to the patient. The specific risks of bleeding, infection, and damage to bowel were detailed and accepted. Witnessed informed consent was obtained. The abdomen was ultrasonographically surveyed. An appropriate pocket of fluid was identified at the left lower quadrant. The skin were cleaned and prepped in the usual sterile fashion. Using ultrasound guidance, the peritoneal cavity was accessed with a 5-Paraguayan paracentesis needle/catheter system. The trocar was removed. A total of 6100 ml of willis-colored fluid were removed from the peritoneal cavity. The catheter was removed and a sterile dressing was applied. The procedure was well tolerated. US/Paracentesis with US IMPRESSION: Ultrasound guided paracentesis. Electronically Signed: Valeriano Hull MD at 10:05 EDT ,
[2023-07-06] MEDS: Lidocaine 2% (20 ml mdv) 20 ML Vial INFILT (08:53)
[2023-07-06 09:04] VITALS: BP 101/67; BP 103/62; BP 109/65; BP 91/54; BP 97/55; PULSE 86; PULSE 88; PULSE 89; PULSE 91; PULSE 92; RESP 16; TEMP 37; O2SAT 100; O2SAT 93; O2SAT 95; O2SAT 97; O2SAT 98
[2023-07-06 09:34] VITALS: BMI 29.2
[2023-07-06] MEDS: Albumin Human 25% (100 mL) 25 GM/100 ML BAG IV (09:40)
[2023-07-06] MEDS: Albumin Human 25% (50 mL) 12.5 GM/50 ML IV.SOLN IV (11:11)
[2023-07-06 11:53] VITALS: BP 87/54; PULSE 77; RESP 16; TEMP 36.2; O2SAT 98
== END | disposition home or self-care (01) ==
LOC: US 08:33
PROVIDERS: PCP Family Medicine; Referring Provider Internal Medicine Gastroenterology; Visit Provider Internal Medicine Gastroenterology
DX: K75.81 Nonalcoholic steatohepatitis (NASH) (principal)
CPT/HCPCS: 96365; 96366; 49083; P9047

== ENCOUNTER → 2023-07-12 | Outpatient (CLI) | payer SELFPAY ==
--- NOTE | 2023-07-12 10:34 | US_ITS ---
PROCEDURE: Ultrasound guided paracentesis. DATE OF EXAMINATION: July 12, 2023.. INDICATION: Female, 63 years old. Ascites. PHYSICIAN: Valeriano Hull M.D. TECHNIQUE: The risks, benefits, and alternatives to the procedure were explained to the patient. The specific risks of bleeding, infection, and damage to bowel were detailed and accepted. Witnessed informed consent was obtained. The abdomen was ultrasonographically surveyed. An appropriate pocket of fluid was identified at the left lower quadrant. The skin were cleaned and prepped in the usual sterile fashion. Using ultrasound guidance, the peritoneal cavity was accessed with a 5-Malaysian paracentesis needle/catheter system. The trocar was removed. A total of 5800 ml of willis-colored fluid were removed from the peritoneal cavity. The catheter was removed and a sterile dressing was applied. The procedure was well tolerated. US/Paracentesis with US IMPRESSION: Ultrasound guided paracentesis. Electronically Signed: Valeriano Hull MD at 12:00 EDT ,
[2023-07-12] MEDS: Lidocaine 2% (20 ml mdv) 20 ML Vial INFILT (10:52)
[2023-07-12 11:00] VITALS: BP 103/60; BP 104/63; BP 105/62; BP 108/64; PULSE 72; PULSE 75; PULSE 80; PULSE 82; RESP 16; TEMP 36.7; O2SAT 96; O2SAT 97
[2023-07-12 12:20] VITALS: BP 91/53; PULSE 71; RESP 16; TEMP 36.3; O2SAT 99
[2023-07-12] MEDS: Albumin Human 25% (100 mL) 25 GM/100 ML BAG IV (12:26)
[2023-07-12] MEDS: Albumin Human 25% (50 mL) 12.5 GM/50 ML IV.SOLN IV (13:55)
[2023-07-12 14:58] VITALS: BP 92/49; PULSE 88
== END | disposition home or self-care (01) ==
LOC: US 10:33
PROVIDERS: PCP Family Medicine; Referring Provider Internal Medicine Gastroenterology; Visit Provider Internal Medicine Gastroenterology
DX: K75.81 Nonalcoholic steatohepatitis (NASH) (principal)
CPT/HCPCS: 96365; 96366; 49083; J7050; P9047

== ENCOUNTER → 2023-07-19 | Outpatient (CLI) | payer SELFPAY ==
--- NOTE | 2023-07-19 10:38 | US_ITS ---
PROCEDURE: Ultrasound guided paracentesis. DATE OF EXAMINATION: July 19, 2023. INDICATION: Female, 63 years old. Ascites. PHYSICIAN: Valeriano Hull M.D. TECHNIQUE: The risks, benefits, and alternatives to the procedure were explained to the patient. The specific risks of bleeding, infection, and damage to bowel were detailed and accepted. Witnessed informed consent was obtained. The abdomen was ultrasonographically surveyed. An appropriate pocket of fluid was identified at the right lower quadrant. The skin were cleaned and prepped in the usual sterile fashion. Using ultrasound guidance, the peritoneal cavity was accessed with a 5-Bulgarian paracentesis needle/catheter system. The trocar was removed. A total of 4650 ml of willis-colored fluid were removed from the peritoneal cavity. The catheter was removed and a sterile dressing was applied. The procedure was well tolerated. US/Paracentesis with US IMPRESSION: Ultrasound guided paracentesis. Electronically Signed: Valeriano Hull MD at 12:32 EDT ,
[2023-07-19 10:52] VITALS: BP 100/58; BP 102/61; BP 92/59; PULSE 74; PULSE 75; PULSE 84; RESP 16; TEMP 36.3; O2SAT 98; O2SAT 99
[2023-07-19] MEDS: Lidocaine 2% (20 ml mdv) 20 ML Vial INFILT (10:56)
== END | disposition home or self-care (01) ==
PROVIDERS: PCP Family Medicine; Referring Provider Internal Medicine Gastroenterology; Visit Provider Internal Medicine Gastroenterology
DX: K75.81 Nonalcoholic steatohepatitis (NASH) (principal)
CPT/HCPCS: 49083

== ENCOUNTER → 2023-07-26 | Outpatient (CLI) | payer SELFPAY ==
--- NOTE | 2023-07-26 10:30 | US_ITS ---
PROCEDURE: Ultrasound guided paracentesis. DATE OF EXAMINATION: July 26, 2023. INDICATION: Female, 63 years old. Ascites. PHYSICIAN: Valeriano Hull M.D. TECHNIQUE: The risks, benefits, and alternatives to the procedure were explained to the patient. The specific risks of bleeding, infection, and damage to bowel were detailed and accepted. Witnessed informed consent was obtained. The abdomen was ultrasonographically surveyed. An appropriate pocket of fluid was identified at the left lower quadrant. The skin were cleaned and prepped in the usual sterile fashion. Using ultrasound guidance, the peritoneal cavity was accessed with a 5-Uruguayan paracentesis needle/catheter system. The trocar was removed. A total of 6400 ml of willis-colored fluid were removed from the peritoneal cavity. The catheter was removed and a sterile dressing was applied. The procedure was well tolerated. US/Paracentesis with US IMPRESSION: Ultrasound guided paracentesis. Electronically Signed: Valeriano Hull MD at 12:39 EDT ,
[2023-07-26 10:46] VITALS: BP 108/54; BP 98/48; PULSE 81; PULSE 87; RESP 18; O2SAT 98; O2SAT 99
[2023-07-26] MEDS: Lidocaine 2% (20 ml mdv) 20 ML Vial INFILT (10:55)
[2023-07-26 11:04] VITALS: BP 103/62; PULSE 77; RESP 18; O2SAT 99
[2023-07-26] MEDS: 0.9% Saline Lock 10 ML Syringe IV ×2 (11:25→11:58)
[2023-07-26 11:28] VITALS: BP 96/56; PULSE 76; RESP 18; O2SAT 99
[2023-07-26 11:51] VITALS: BP 101/53; PULSE 70; RESP 16; TEMP 36.2; O2SAT 99; BMI 27.4
[2023-07-26] MEDS: Albumin Human 25% (100 mL) 25 GM/100 ML BAG IV (11:54)
[2023-07-26] MEDS: Albumin Human 25% (50 mL) 12.5 GM/50 ML IV.SOLN IV (13:19)
[2023-07-26 14:14] VITALS: BP 90/51; PULSE 71; RESP 16
== END | disposition home or self-care (01) ==
LOC: US 10:28
PROVIDERS: PCP Family Medicine; Referring Provider Internal Medicine Gastroenterology; Visit Provider Internal Medicine Gastroenterology
DX: K75.81 Nonalcoholic steatohepatitis (NASH) (principal)
CPT/HCPCS: 96365; 96366; 49083; J7050; P9047; A4216

== ENCOUNTER → 2023-08-02 | Outpatient (CLI) | payer SELFPAY ==
--- NOTE | 2023-08-02 10:37 | US_ITS ---
PROCEDURE: Ultrasound guided paracentesis. DATE OF EXAMINATION: August 02, 2023.. INDICATION: Female, 63 years old. Ascites. PHYSICIAN: Valeriano Hull M.D. TECHNIQUE: The risks, benefits, and alternatives to the procedure were explained to the patient. The specific risks of bleeding, infection, and damage to bowel were detailed and accepted. Witnessed informed consent was obtained. The abdomen was ultrasonographically surveyed. An appropriate pocket of fluid was identified at the right lower quadrant. The skin were cleaned and prepped in the usual sterile fashion. Using ultrasound guidance, the peritoneal cavity was accessed with a 5-Turkmen paracentesis needle/catheter system. The trocar was removed. A total of 6900 ml of willis-colored fluid were removed from the peritoneal cavity. The catheter was removed and a sterile dressing was applied. The procedure was well tolerated. US/Paracentesis with US IMPRESSION: Ultrasound guided paracentesis. Electronically Signed: Valeriano Hull MD at 12:06 EDT ,
[2023-08-02] MEDS: Lidocaine 2% (20 ml mdv) 20 ML Vial INFILT (10:57)
[2023-08-02 11:06] VITALS: BP 103/58; BP 106/58; BP 107/63; BP 110/64; PULSE 16; PULSE 88; PULSE 90; PULSE 92; RESP 16; RESP 89; TEMP 36.3; O2SAT 96; O2SAT 97; O2SAT 98
[2023-08-02 11:45] VITALS: BP 99/53; PULSE 80; RESP 16; TEMP 35.9; O2SAT 98; BMI 28.3
[2023-08-02] MEDS: Albumin Human 25% (100 mL) 25 GM/100 ML BAG IV (11:50)
[2023-08-02] MEDS: 0.9% Saline Lock 10 ML Syringe IV (11:51)
[2023-08-02] MEDS: Albumin Human 25% (50 mL) 12.5 GM/50 ML IV.SOLN IV (13:17)
[2023-08-02 14:17] VITALS: BP 94/51; PULSE 92; RESP 16; TEMP 36; O2SAT 98
== END | disposition home or self-care (01) ==
LOC: US 10:31
PROVIDERS: PCP Family Medicine; Referring Provider Internal Medicine Gastroenterology; Visit Provider Internal Medicine Gastroenterology
DX: K75.81 Nonalcoholic steatohepatitis (NASH) (principal)
CPT/HCPCS: 96365; 96366; 49083; J7050; P9047

== ENCOUNTER → 2023-08-09 | Outpatient (CLI) | payer SELFPAY ==
--- NOTE | 2023-08-09 11:15 | US_ITS ---
PROCEDURE: Ultrasound guided paracentesis. DATE OF EXAMINATION: August 09, 2023. INDICATION: Female, 63 years old. Ascites. PHYSICIAN: Valeriano Hull M.D. TECHNIQUE: The risks, benefits, and alternatives to the procedure were explained to the patient. The specific risks of bleeding, infection, and damage to bowel were detailed and accepted. Witnessed informed consent was obtained. The abdomen was ultrasonographically surveyed. An appropriate pocket of fluid was identified at the left lower quadrant. The skin were cleaned and prepped in the usual sterile fashion. Using ultrasound guidance, the peritoneal cavity was accessed with a 5-Djiboutian paracentesis needle/catheter system. The trocar was removed. A total of 5750 ml of willis-colored fluid were removed from the peritoneal cavity. The catheter was removed and a sterile dressing was applied. The procedure was well tolerated. US/Paracentesis with US IMPRESSION: Ultrasound guided paracentesis. Electronically Signed: Valeriano Hull MD at 11:21 EDT ,
[2023-08-09] MEDS: Lidocaine 2% (20 ml mdv) 20 ML Vial INFILT (11:28)
[2023-08-09 12:16] VITALS: BP 94/55; PULSE 86; RESP 16; TEMP 36.5; O2SAT 97; BMI 28.3
[2023-08-09] MEDS: Albumin Human 25% (100 mL) 25 GM/100 ML BAG IV (12:41)
[2023-08-09 12:49] VITALS: BP 109/71; BP 110/53; BP 110/69; BP 95/64; PULSE 82; PULSE 85; PULSE 90; PULSE 92; RESP 16; TEMP 36.5; O2SAT 96; O2SAT 97
[2023-08-09] MEDS: Albumin Human 25% (50 mL) 12.5 GM/50 ML IV.SOLN IV (14:04)
[2023-08-09 15:03] VITALS: BP 101/57; RESP 16
--- NOTE | 2023-08-10 11:39 | PCM.OP.PRO ---
Procedure Report Date of Procedure: 08/09/23 Assessment & Plan Assessment/Plan (1) Abdominal ascites: QUALIFIERS: Ascites type: other type Qualified Code(s): R18.8 - Other ascites PLAN: PROCEDURE: Ultrasound guided paracentesis DATE OF EXAMINATION: August 09, 2023 ORDERING PROVIDER: Dr. Estrada INDICATION: Female, 63 years old. Ascites. PROVIDER: V[employer] Painting TECHNIQUE: The risks, benefits, and alternatives to the procedure were explained to the patient and her daughter. The specific risks of bleeding, infection, and damage to bowel were detailed and accepted. Witnessed informed consent was obtained. The abdomen was ultrasonographically surveyed. An appropriate pocket of fluid was identified in the left lower quadrant. The skin was prepped with Betadine swabs and sterile field established. Using ultrasound guidance, the peritoneal cavity was accessed with a 5-Armenian paracentesis needle/catheter system. The trocar was removed. A total of 5750 ml of light willis colored fluid was removed from the peritoneal cavity. The catheter was removed and a sterile dressing was applied. The procedure was well tolerated. IMPRESSION: Successful paracentesis of the left lower quadrant. Procedures Radiology Radiology US Procedures: [id number] Paracentesis
== END | disposition home or self-care (01) ==
LOC: US 11:15
PROVIDERS: PCP Family Medicine; Referring Provider Internal Medicine Gastroenterology; Visit Provider Internal Medicine Gastroenterology
DX: K75.81 Nonalcoholic steatohepatitis (NASH) (principal)
CPT/HCPCS: 96365; 96366; 49083; J7050; P9047

== ENCOUNTER → 2023-08-16 | Outpatient (CLI) | payer SELFPAY ==
--- NOTE | 2023-08-16 10:33 | US_ITS ---
PROCEDURE: Ultrasound guided paracentesis. DATE OF EXAMINATION: August 16, 2023. INDICATION: Female, 63 years old. Ascites. PHYSICIAN: Valeriano Hull M.D. TECHNIQUE: The risks, benefits, and alternatives to the procedure were explained to the patient. The specific risks of bleeding, infection, and damage to bowel were detailed and accepted. Witnessed informed consent was obtained. The abdomen was ultrasonographically surveyed. An appropriate pocket of fluid was identified at the left lower quadrant. The skin were cleaned and prepped in the usual sterile fashion. Using ultrasound guidance, the peritoneal cavity was accessed with a 5-Palestinian paracentesis needle/catheter system. The trocar was removed. A total of 5850 ml of willis-colored fluid were removed from the peritoneal cavity. The catheter was removed and a sterile dressing was applied. The procedure was well tolerated. US/Paracentesis with US IMPRESSION: Ultrasound guided paracentesis. Electronically Signed: Valeriano Hull MD at 12:35 EDT ,
[2023-08-16] MEDS: Lidocaine 2% (20 ml mdv) 20 ML Vial INFILT (10:40)
[2023-08-16 10:47] VITALS: BP 102/64; BP 102/74; BP 103/62; PULSE 76; PULSE 77; PULSE 98; RESP 18; TEMP 36.6; O2SAT 100; O2SAT 97
[2023-08-16] MEDS: 0.9% Saline Lock 10 ML Syringe IV (11:28)
[2023-08-16] MEDS: Albumin Human 25% (100 mL) 25 GM/100 ML BAG IV (11:45)
[2023-08-16] MEDS: Albumin Human 25% (50 mL) 12.5 GM/50 ML IV.SOLN IV (13:08)
[2023-08-16 14:09] VITALS: BP 94/48; PULSE 84; RESP 16
== END | disposition home or self-care (01) ==
LOC: US 10:32
PROVIDERS: PCP Family Medicine; Referring Provider Internal Medicine Gastroenterology; Visit Provider Internal Medicine Gastroenterology
DX: K75.81 Nonalcoholic steatohepatitis (NASH) (principal)
CPT/HCPCS: 96365; 96366; 49083; J7050; P9047; A4216

== ENCOUNTER → 2023-08-23 | Outpatient (CLI) | payer SELFPAY ==
--- NOTE | 2023-08-23 10:35 | US_ITS ---
PROCEDURE: Ultrasound guided paracentesis. DATE OF EXAMINATION: August 23, 2023.. INDICATION: Female, 63 years old. Ascites. PHYSICIAN: Valeriano Hull M.D. TECHNIQUE: The risks, benefits, and alternatives to the procedure were explained to the patient. The specific risks of bleeding, infection, and damage to bowel were detailed and accepted. Witnessed informed consent was obtained. The abdomen was ultrasonographically surveyed. An appropriate pocket of fluid was identified at the left lower quadrant. The skin were cleaned and prepped in the usual sterile fashion. Using ultrasound guidance, the peritoneal cavity was accessed with a 5-Kuwaiti paracentesis needle/catheter system. The trocar was removed. A total of 6500 ml of willis-colored fluid were removed from the peritoneal cavity. The catheter was removed and a sterile dressing was applied. The procedure was well tolerated. US/Paracentesis with US IMPRESSION: Ultrasound guided paracentesis. Electronically Signed: Valeriano Hull MD at 12:08 EDT ,
[2023-08-23] MEDS: Lidocaine 2% (20 ml mdv) 20 ML Vial INFILT (10:54)
[2023-08-23 10:58] VITALS: BP 101/56; BP 102/52; BP 94/57; BP 96/55; PULSE 77; PULSE 80; PULSE 82; PULSE 92; RESP 14; RESP 16; O2SAT 96; O2SAT 97
--- NOTE | 2023-08-23 11:32 | PRO.PCM_ITS ---
Procedure Report Date of Procedure: 08/23/23 Assessment & Plan Assessment/Plan (1) Abdominal ascites: QUALIFIERS: Ascites type: other type Qualified Code(s): R18.8 - Other ascites PLAN: PROCEDURE: Ultrasound guided paracentesis ORDERING PROVIDER: Dr. Estrada INDICATION: Female, 63 years old. Ascites. PROVIDER: [employer] Painting TECHNIQUE: The risks, benefits, and alternatives to the procedure were explained to the patient. The specific risks of bleeding, infection, and damage to bowel were detailed and accepted. Witnessed informed consent was obtained. The abdomen was ultrasonographically surveyed. An appropriate pocket of fluid was identified in the left lower quadrant. The skin was prepped with Betadine swabs and sterile field established. Using ultrasound guidance, the peritoneal cavity was accessed with a 5-New Zealander paracentesis needle/catheter system. The trocar was removed. A total of 6500 ml of clear yellow colored fluid was removed from the peritoneal cavity. The catheter was removed and a sterile dressing was applied. The procedure was well tolerated. IMPRESSION: Successful ultrasound-guided paracentesis. Procedures Radiology Radiology US Procedures: [id number] Paracentesis
[2023-08-23 11:37] VITALS: BP 94/55; PULSE 74; RESP 16; TEMP 36.1; O2SAT 99; BMI 27.4
[2023-08-23] MEDS: 0.9% Saline Lock 10 ML Syringe IV ×2 (11:37→12:07)
[2023-08-23] MEDS: Albumin Human 25% (100 mL) 25 GM/100 ML BAG IV (12:09)
[2023-08-23] MEDS: Albumin Human 25% (50 mL) 12.5 GM/50 ML IV.SOLN IV (13:37)
[2023-08-23 14:40] VITALS: BP 89/52; PULSE 80; RESP 16; TEMP 36.6; O2SAT 97
== END | disposition home or self-care (01) ==
LOC: US 10:35
PROVIDERS: PCP Family Medicine; Referring Provider Internal Medicine Gastroenterology; Visit Provider Internal Medicine Gastroenterology
DX: K75.81 Nonalcoholic steatohepatitis (NASH) (principal)
CPT/HCPCS: 96365; 96366; 49083; J7050; P9047

== ENCOUNTER → 2023-09-10 | Outpatient (CLI) | payer SELFPAY ==
[2023-09-10 10:50] VITALS: BP 100/55; BP 108/54; BP 108/56; BP 92/58; PULSE 78; PULSE 81; PULSE 85; PULSE 88; RESP 16; TEMP 36.7; O2SAT 96; O2SAT 97; O2SAT 98; O2SAT 99
[2023-09-10] MEDS: Lidocaine 2% (20 ml mdv) 20 ML Vial INFILT (10:57)
--- NOTE | 2023-09-10 11:31 | PCM.OP.PRO ---
Procedure Report Date of Procedure: 09/10/23 Assessment & Plan Assessment/Plan (1) Abdominal ascites: QUALIFIERS: Ascites type: other type Qualified Code(s): R18.8 - Other ascites PLAN: PROCEDURE: Ultrasound guided paracentesis ORDERING PROVIDER: Dr. Estrada INDICATION: Female, 63 years old. Ascites. PROVIDER: [employer] Painting TECHNIQUE: The risks, benefits, and alternatives to the procedure were explained to the patient. The specific risks of bleeding, infection, and damage to bowel were detailed and accepted. Witnessed informed consent was obtained. The abdomen was ultrasonographically surveyed. An appropriate pocket of fluid was identified in the right lower quadrant. The skin was prepped with Betadine swabs and sterile field established. 2% lidocaine was used for local anesthetic. Aspiration while anesthetizing the insertion track revealed the return of clear yellow ascitic fluid. Using ultrasound guidance, the peritoneal cavity was accessed with a 5-Frisian paracentesis needle/catheter system. The trocar was removed. A total of 5750 ml of clear yellow colored fluid was removed from the peritoneal cavity. The catheter was removed and a sterile dressing was applied. The procedure was well tolerated. IMPRESSION: Successful ultrasound-guided paracentesis with right lower quadrant access site. Procedures Radiology Radiology US Procedures: [id number] Paracentesis
[2023-09-10 11:38] VITALS: BP 100/52; PULSE 75; RESP 16; TEMP 36.4; O2SAT 100; BMI 26.5
[2023-09-10] MEDS: 0.9% Saline Lock 10 ML Syringe IV (11:59)
[2023-09-10] MEDS: Albumin Human 25% (100 mL) 25 GM/100 ML BAG IV (11:59)
[2023-09-10] MEDS: Albumin Human 25% (50 mL) 12.5 GM/50 ML IV.SOLN IV (13:33)
[2023-09-10 14:37] VITALS: BP 98/48; PULSE 78; RESP 16
== END | disposition home or self-care (01) ==
LOC: US 10:38
PROVIDERS: PCP Family Medicine; Referring Provider Internal Medicine Gastroenterology; Visit Provider Internal Medicine Gastroenterology
DX: K75.81 Nonalcoholic steatohepatitis (NASH) (principal)
CPT/HCPCS: 96365; 96366; 49083; P9047

== ENCOUNTER → 2023-09-19 | Outpatient (CLI) | payer SELFPAY ==
[2023-09-19] MEDS: Lidocaine 2% (20 ml mdv) 20 ML Vial INFILT (11:00)
[2023-09-19 11:06] VITALS: BP 102/57; BP 102/58; BP 98/60; PULSE 101; PULSE 88; PULSE 99; RESP 16; TEMP 36.3; O2SAT 98; O2SAT 99
--- NOTE | 2023-09-19 11:30 | PRO.PCM_ITS ---
Procedure Report Date of Procedure: 09/19/23 Assessment & Plan Assessment/Plan (1) Abdominal ascites: QUALIFIERS: Ascites type: other type Qualified Code(s): R18.8 - Other ascites PLAN: PROCEDURE: Ultrasound guided paracentesis ORDERING PROVIDER: Dr. Estrada INDICATION: Female, 63 years old. Ascites. PROVIDER: V[employer] Painting TECHNIQUE: The risks, benefits, and alternatives to the procedure were explained to the patient. The specific risks of bleeding, infection, and damage to bowel were detailed and accepted. Witnessed informed consent was obtained. The abdomen was ultrasonographically surveyed. An appropriate pocket of fluid was identified in the left lower quadrant. The skin was prepped with chlorhexidine swab and sterile field established. 2% lidocaine was used for local anesthetic. Aspiration while anesthetizing the insertion track revealed the return of clear yellow ascitic fluid. Using ultrasound guidance, the peritoneal cavity was accessed with a 5-Trinidadian paracentesis needle/catheter system. The trocar was removed. A total of 4750 ml of clear yellow colored fluid was removed from the peritoneal cavity. The catheter was removed and a sterile dressing was applied. The procedure was well tolerated. IMPRESSION: Successful ultrasound-guided paracentesis with left lower quadrant access site. Procedures Radiology Radiology US Procedures: [id number] Paracentesis
== END | disposition home or self-care (01) ==
PROVIDERS: PCP Family Medicine; Referring Provider Internal Medicine Gastroenterology; Visit Provider Internal Medicine Gastroenterology
DX: K75.81 Nonalcoholic steatohepatitis (NASH) (principal)
CPT/HCPCS: 49083

== ENCOUNTER → 2023-09-27 | Outpatient (CLI) | payer SELFPAY ==
--- NOTE | 2023-09-27 09:49 | US_ITS ---
PROCEDURE: Ultrasound guided paracentesis. DATE OF EXAMINATION: September 27, 2023. INDICATION: Female, 63 years old. Ascites. PHYSICIAN: Valeriano Hull M.D. TECHNIQUE: The risks, benefits, and alternatives to the procedure were explained to the patient. The specific risks of bleeding, infection, and damage to bowel were detailed and accepted. Witnessed informed consent was obtained. The abdomen was ultrasonographically surveyed. An appropriate pocket of fluid was identified at the right lower quadrant. The skin were cleaned and prepped in the usual sterile fashion. Using ultrasound guidance, the peritoneal cavity was accessed with a 5-Lebanese paracentesis needle/catheter system. The trocar was removed. A total of 5500 ml of willis-colored fluid were removed from the peritoneal cavity. The catheter was removed and a sterile dressing was applied. The procedure was well tolerated. US/Paracentesis with US IMPRESSION: Ultrasound guided paracentesis. Electronically Signed: Valeriano Hull MD at 10:59 EST ,
[2023-09-27] MEDS: Lidocaine 2% (20 ml mdv) 20 ML Vial INFILT (10:10)
[2023-09-27 10:27] VITALS: BP 103/56; BP 98/53; BP 98/59; PULSE 87; PULSE 88; PULSE 96; RESP 18; TEMP 36.7; O2SAT 97; O2SAT 98
[2023-09-27] MEDS: 0.9% Saline Lock 10 ML Syringe IV ×2 (10:40→11:11)
[2023-09-27 10:55] VITALS: BP 108/64; PULSE 78; RESP 16; TEMP 36.6; O2SAT 96
[2023-09-27] MEDS: Albumin Human 25% (100 mL) 25 GM/100 ML BAG IV (11:10)
[2023-09-27] MEDS: Albumin Human 25% (50 mL) 12.5 GM/50 ML IV.SOLN IV (12:53)
[2023-09-27 14:04] VITALS: BP 111/57; PULSE 80; TEMP 36.6
== END | disposition home or self-care (01) ==
LOC: US 09:48
PROVIDERS: PCP Family Medicine; Referring Provider Internal Medicine Gastroenterology; Visit Provider Internal Medicine Gastroenterology
DX: K75.81 Nonalcoholic steatohepatitis (NASH) (principal)
CPT/HCPCS: 96365; 96366; 49083; J7050; P9047

== ENCOUNTER → 2023-10-04 | Outpatient (CLI) | payer SELFPAY ==
[2023-10-04] MEDS: Lidocaine 2% (20 ml mdv) 20 ML Vial INFILT (10:30)
[2023-10-04 10:38] VITALS: BP 107/44; PULSE 83; RESP 16; TEMP 36.7; O2SAT 99
[2023-10-04 10:45] VITALS: BP 100/60; PULSE 84; RESP 16; O2SAT 97
[2023-10-04 11:00] VITALS: BP 95/50; PULSE 78; RESP 16; O2SAT 98
[2023-10-04 11:18] LABS: Absolute Lymphocyte Count 1.03 X10^3/uL (0.83-4.51); Absolute Neutrophil Count 2.3 X10^3/uL (2.0-7.7); Basophil# 0.02 X10^3/uL; Basophil% 0.5 % (0-1); Eosinophil# 0.08 X10^3/uL; Hematocrit 34.6 % (37-47); Hemoglobin 11.2 g/dL (12.0-15.0); Lymphocyte # 1.03 X10^3/ul (0.83-4.51); Lymphocyte % 25.7 % (19-41); Mean Corp Hgb Conc 32.4 g/dL (32-36); Mean Corpuscular Hgb 30.1 pg (27.0-32.0); Mean Platelet Vol. 10.1 fl (6.2-12.0); Monocyte# 0.55 X10^3/uL; Monocyte% 13.7 % (0-10); NRBC Flagged by Analyzer 0 % (0-5); Neutrophil # 2.32 X10^3/uL (2.7-7.7); Neutrophil % 57.9 % (47-70); Platelet Count 113 K/mm3 (150-450); RBC Distribution Width CV 14.5 % (11.6-14.6); RBC Distribution Width SD 49.2 fl (35.1-43.9); Red Blood Count 3.72 M/mm3 (4.2-5.4)
[2023-10-04 11:24] LABS: International Normalized Ratio 1.5; Prothrombin Time (Protime)PT. 18.3 SECONDS (11.7-14.9)
[2023-10-04 11:31] LABS: ALB/GLOB Ratio 0.7 RATIO (0.9-2.4); AST(SGOT) 33 U/L (15-37); Alanine Aminotransfer ALT/SGPT 23 U/L (13-56); Albumin, Serum 2.6 g/dL (3.2-5.0); Alkaline Phosphatase 189 U/L (45-117); Anion Gap 6 (5-15); BUN 16 mg/dL (7-18); BUN/Creat Ratio 22.2 RATIO (10-20); Calcium,Total 7.2 mg/dL (8.5-10.1); Chloride 104 mmol/L (98-107); Creatinine, Serum 0.72 mg/dL (0.55-1.02); EST Glomerular Filtration Rate 87 mL/min (>60); Est Glom Filt Rate - Afr Amer 105 mL/min (>60); Globulin 3.6 g/dL (2.2-4.2); Glucose 91 mg/dL (74-106); Potassium 3.5 mmol/L (3.5-5.1); Protein, Total 6.2 g/dL (6.4-8.2); Sodium Level 139 mmol/L (136-145)
--- NOTE | 2023-10-04 11:33 | PRO.PCM_ITS ---
Procedure Report Date of Procedure: 10/04/23 Assessment & Plan Assessment/Plan (1) Abdominal ascites: QUALIFIERS: Ascites type: other type Qualified Code(s): R18.8 - Other ascites PLAN: Plan PROCEDURE: Ultrasound guided paracentesis ORDERING PROVIDER: Dr. Estrada INDICATION: Female, 63 years old. Ascites. PROVIDER: [employer] TECHNIQUE: The risks, benefits, and alternatives to the procedure were explained to the patient and daughter. The specific risks of bleeding, infection, and damage to bowel were detailed and accepted. Witnessed informed consent was obtained. The abdomen was ultrasonographically surveyed. An appropriate pocket of fluid was identified in the left lower quadrant. The skin was prepped with Betadine swabs and sterile field established. 2% lidocaine was used for local anesthetic. Using ultrasound guidance, the peritoneal cavity was accessed with a 5-[place] Island[place] paracentesis needle/catheter system. The trocar was removed. A total of 6150 ml of clear yellow colored fluid was removed from the peritoneal cavity. The catheter was removed and a sterile dressing was applied. The procedure was well tolerated. IMPRESSION: Successful ultrasound-guided paracentesis with left lower quadrant access site. Procedures Radiology Radiology US Procedures: [id number] Paracentesis
[2023-10-04] MEDS: Albumin Human 25% (100 mL) 25 GM/100 ML BAG IV (11:41)
[2023-10-04] MEDS: 0.9% Saline Lock 10 ML Syringe IV (11:43)
[2023-10-04] MEDS: Albumin Human 25% (50 mL) 12.5 GM/50 ML IV.SOLN IV (13:07)
[2023-10-04 14:19] VITALS: BP 96/49; PULSE 75; RESP 16; TEMP 36.6; O2SAT 100
== END | disposition home or self-care (01) ==
LOC: US 10:02
PROVIDERS: PCP Family Medicine; Referring Provider Internal Medicine Gastroenterology; Visit Provider Internal Medicine Gastroenterology
DX: K75.81 Nonalcoholic steatohepatitis (NASH) (principal); K72.90 Hepatic failure, unspecified without coma; K74.60 Unspecified cirrhosis of liver
CPT/HCPCS: 96365; 96366; 49083; 80053; 85025; 85610; J7050; P9047

== ENCOUNTER → 2023-10-11 | Outpatient (CLI) | payer SELFPAY ==
[2023-10-11 11:28] VITALS: BP 98/62; PULSE 105; RESP 18; O2SAT 98
[2023-10-11] MEDS: Lidocaine 2% (20 ml mdv) 20 ML Vial INFILT (11:33)
[2023-10-11 11:42] VITALS: BP 88/61; PULSE 101; RESP 18; O2SAT 98
[2023-10-11] MEDS: 0.9% Saline Lock 10 ML Syringe IV ×2 (11:54→12:25)
[2023-10-11 11:55] VITALS: BP 94/58; PULSE 97; RESP 18; O2SAT 99
[2023-10-11] MEDS: Albumin Human 25% (100 mL) 25 GM/100 ML BAG IV (12:26)
[2023-10-11 12:35] VITALS: BP 96/57; PULSE 91; RESP 16; TEMP 36.1; O2SAT 100
[2023-10-11] MEDS: Albumin Human 25% (50 mL) 12.5 GM/50 ML IV.SOLN IV (13:56)
--- NOTE | 2023-10-11 14:05 | PCM.OP.PRO ---
Procedure Report Date of Procedure: 10/11/23 Assessment & Plan Assessment/Plan (1) Abdominal ascites: QUALIFIERS: Ascites type: other type Qualified Code(s): R18.8 - Other ascites PLAN: PROCEDURE: Ultrasound guided paracentesis ORDERING PROVIDER: Dr. Estrada INDICATION: Female, 63 years old. Ascites. PROVIDER: [employer] TECHNIQUE: The risks, benefits, and alternatives to the procedure were explained to the patient and daughter. The specific risks of bleeding, infection, and damage to bowel were detailed and accepted. Witnessed informed consent was obtained. The abdomen was ultrasonographically surveyed. An appropriate pocket of fluid was identified in the left lower quadrant. The skin was prepped with Betadine swabs and sterile field established. 2% lidocaine was used for local anesthetic. Using ultrasound guidance, the peritoneal cavity was accessed with a 5-Romansh paracentesis needle/catheter system. The trocar was removed. A total of 7250 ml of clear light yellow colored fluid was removed from the peritoneal cavity. The catheter was removed and a sterile dressing was applied. The procedure was well tolerated. IMPRESSION: Successful ultrasound-guided paracentesis with left lower quadrant access site Procedures Radiology Radiology US Procedures: [id number] Paracentesis
[2023-10-11 14:56] VITALS: BP 99/50; PULSE 98; RESP 16; TEMP 36.8; O2SAT 99
== END | disposition home or self-care (01) ==
LOC: US 11:14
PROVIDERS: PCP Family Medicine; Referring Provider Internal Medicine Gastroenterology; Visit Provider Internal Medicine Gastroenterology
DX: K75.81 Nonalcoholic steatohepatitis (NASH) (principal)
CPT/HCPCS: 96365; 96366; 49083; J7050; P9047; A4216

== ENCOUNTER → 2023-10-18 | Outpatient (CLI) | payer SELFPAY ==
[2023-10-18 10:41] VITALS: BP 106/59; PULSE 83; RESP 18; TEMP 36.9; O2SAT 99
[2023-10-18] MEDS: Lidocaine 2% (20 ml mdv) 20 ML Vial INFILT (10:44)
[2023-10-18 10:46] VITALS: BP 112/70; PULSE 82; RESP 18; O2SAT 97
[2023-10-18 11:00] VITALS: BP 105/61; PULSE 83; RESP 18; O2SAT 97
[2023-10-18] MEDS: 0.9% Saline Lock 10 ML Syringe IV ×2 (11:10→12:12)
[2023-10-18 11:15] VITALS: BP 108/56; PULSE 79; RESP 18; O2SAT 98
--- NOTE | 2023-10-18 11:24 | PCM.OP.PRO ---
Procedure Report Date of Procedure: 10/18/23 Assessment & Plan Assessment/Plan (1) Abdominal ascites: QUALIFIERS: Ascites type: other type Qualified Code(s): R18.8 - Other ascites PLAN: PROCEDURE: Ultrasound guided paracentesis ORDERING PROVIDER: Dr. Estrada INDICATION: Female, 63 years old. Ascites. PROVIDER: [employer] TECHNIQUE: The risks, benefits, and alternatives to the procedure were explained to the patient. The specific risks of bleeding, infection, and damage to bowel were detailed and accepted. Witnessed informed consent was obtained. The abdomen was ultrasonographically surveyed. An appropriate pocket of fluid was identified in the left lower quadrant. The skin was prepped with Betadine swabs and sterile field established. 2% lidocaine was used for local anesthetic. Aspiration while anesthetizing the insertion track revealed the return of clear yellow ascitic fluid. Using ultrasound guidance, the peritoneal cavity was accessed with a 5-Setswana paracentesis needle/catheter system. The trocar was removed. A total of 6350 ml of clear yellow colored fluid was removed from the peritoneal cavity. The catheter was removed and a sterile dressing was applied. The procedure was well tolerated. IMPRESSION: Successful ultrasound-guided paracentesis with left lower quadrant access site. Procedures Radiology Radiology US Procedures: [id number] Paracentesis
[2023-10-18 11:38] VITALS: BP 88/56; PULSE 79; TEMP 36.3
[2023-10-18] MEDS: Albumin Human 25% (100 mL) 25 GM/100 ML BAG IV (12:10)
[2023-10-18] MEDS: Albumin Human 25% (50 mL) 12.5 GM/50 ML IV.SOLN IV (13:41)
[2023-10-18 14:39] VITALS: BP 90/53; PULSE 79; RESP 16; TEMP 36.3
== END | disposition home or self-care (01) ==
LOC: US 09:57
PROVIDERS: PCP Family Medicine; Referring Provider Internal Medicine Gastroenterology; Visit Provider Internal Medicine Gastroenterology
DX: K75.81 Nonalcoholic steatohepatitis (NASH) (principal)
CPT/HCPCS: 96365; 96366; 49083; J7050; P9047

== ENCOUNTER → 2023-10-25 | Outpatient (CLI) | payer SELFPAY ==
[2023-10-25 11:02] VITALS: BP 84/53; PULSE 95; RESP 16; TEMP 36.6; O2SAT 97
[2023-10-25] MEDS: Lidocaine 2% (20 ml mdv) 20 ML Vial INFILT (11:10)
[2023-10-25 11:17] VITALS: BP 93/57; PULSE 95; RESP 16; O2SAT 95
[2023-10-25 11:32] VITALS: BP 109/52; PULSE 80; RESP 16; O2SAT 96
[2023-10-25 11:37] VITALS: BP 97/61; PULSE 90; RESP 16; O2SAT 96
[2023-10-25 11:48] VITALS: BP 93/54; PULSE 79; RESP 16; TEMP 36.3; O2SAT 98; BMI 24.9
--- NOTE | 2023-10-25 12:07 | PRO.PCM_ITS ---
Procedure Report Date of Procedure: 10/25/23 Assessment & Plan Assessment/Plan (1) Abdominal ascites: QUALIFIERS: Ascites type: other type Qualified Code(s): R18.8 - Other ascites PLAN: PROCEDURE: Ultrasound guided paracentesis ORDERING PROVIDER: Dr. Estrada INDICATION: Female, 63 years old. Ascites. PROVIDER: [employer] TECHNIQUE: The risks, benefits, and alternatives to the procedure were explained to the patient. The specific risks of bleeding, infection, and damage to bowel were detailed and accepted. Witnessed informed consent was obtained. The abdomen was ultrasonographically surveyed. An appropriate pocket of fluid was identified in the left lower quadrant. The skin was prepped with chlorhexidine and sterile field established. 2% lidocaine was used for local anesthetic. Using ultrasound guidance, the peritoneal cavity was accessed with a 5-[place] paracentesis needle/catheter system. The trocar was removed. A total of 5900 ml of clear yellow colored fluid was removed from the peritoneal cavity. The catheter was removed and a sterile dressing was applied. The procedure was well tolerated. IMPRESSION: Successful ultrasound-guided paracentesis with left lower quadrant access site. Procedures Radiology Radiology US Procedures: [id number] Paracentesis
[2023-10-25] MEDS: 0.9% NaCl Peripheral Flush Adult/Peds IV (12:11)
[2023-10-25] MEDS: Albumin Human 25% (100 mL) 25 GM/100 ML BAG IV (12:11)
[2023-10-25] MEDS: Albumin Human 25% (50 mL) 12.5 GM/50 ML IV.SOLN IV (13:47)
[2023-10-25 14:52] VITALS: BP 87/52; PULSE 78; RESP 16; TEMP 36.2; O2SAT 98
== END | disposition home or self-care (01) ==
LOC: US 10:43
PROVIDERS: PCP Family Medicine; Referring Provider Internal Medicine Gastroenterology; Visit Provider Internal Medicine Gastroenterology
DX: K75.81 Nonalcoholic steatohepatitis (NASH) (principal)
CPT/HCPCS: 96365; 96366; 49083; J7050; P9047; A4216

== ENCOUNTER → 2023-11-01 | Outpatient (CLI) | payer SELFPAY ==
[2023-11-01 10:40] VITALS: BP 98/57; PULSE 99; RESP 16; TEMP 36.8; O2SAT 96
[2023-11-01] MEDS: Lidocaine 2% (20 ml mdv) 20 ML Vial INFILT (10:47)
[2023-11-01 10:55] VITALS: BP 93/48; PULSE 75; RESP 16; O2SAT 95
[2023-11-01 11:05] VITALS: BP 90/50; PULSE 83; RESP 16; O2SAT 96
--- NOTE | 2023-11-01 11:24 | PCM.OP.PRO ---
Procedure Report Date of Procedure: 11/01/23 Assessment & Plan Assessment/Plan (1) Abdominal ascites: QUALIFIERS: Ascites type: other type Qualified Code(s): R18.8 - Other ascites PLAN: PROCEDURE: Ultrasound guided paracentesis ORDERING PROVIDER: Dr. Estrada INDICATION: Female, 63 years old. Ascites. PROVIDER: [employer] TECHNIQUE: The risks, benefits, and alternatives to the procedure were explained to the patient and daughter. The specific risks of bleeding, infection, and damage to bowel were detailed and accepted. Witnessed informed consent was obtained. The abdomen was ultrasonographically surveyed. An appropriate pocket of fluid was identified in the left lower quadrant. The skin was prepped with chlorhexidine and sterile field established. 2% lidocaine was used for local anesthetic. Using ultrasound guidance, the peritoneal cavity was accessed with a 5-Scottish paracentesis needle/catheter system. The trocar was removed. A total of 3350 ml of clear yellow colored fluid was removed from the peritoneal cavity. The catheter was removed and a sterile dressing was applied. The procedure was well tolerated. IMPRESSION: Successful ultrasound-guided paracentesis with left lower quadrant access site. Procedures Radiology Radiology US Procedures: [id number] Paracentesis
== END | disposition home or self-care (01) ==
PROVIDERS: PCP Family Medicine; Referring Provider Internal Medicine Gastroenterology; Visit Provider Internal Medicine Gastroenterology
DX: K75.81 Nonalcoholic steatohepatitis (NASH) (principal)
CPT/HCPCS: 49083

== ENCOUNTER → 2023-11-08 | Outpatient (CLI) | payer SELFPAY ==
[2023-11-08] MEDS: Lidocaine 2% (20 ml mdv) 20 ML Vial INFILT (11:14)
[2023-11-08 11:30] VITALS: BP 101/58; PULSE 75; RESP 18; TEMP 36.5; O2SAT 99
[2023-11-08 11:31] VITALS: BP 100/51; PULSE 78; RESP 18; O2SAT 98
[2023-11-08 11:32] VITALS: BP 97/51; PULSE 82; RESP 18; O2SAT 99
--- NOTE | 2023-11-08 11:48 | US_ITS ---
STUDY: ABDOMINAL ULTRASOUND - RIGHT UPPER QUADRANT REASON FOR VISIT: Female, 63 years old HARRISON, CIRRHOSIS TECHNIQUE: Ultrasound evaluation of the right upper quadrant was performed with real-time and static novak-scale imaging. TECHNICAL QUALITY: Adequate. COMPARISON: Comparison is made with prior study dated December 22, 2021. FINDINGS: Liver: The liver measures 13 cm. There is increased echogenicity consistent with fatty infiltration. The bile ducts are within normal limits. There is hepatic color flow. The direction of portal flow is hepatopetal. There is no demonstrated mass lesion. Gallbladder: Normal distended gallbladder. The gallbladder wall measures 1.2 mm. There is a negative sonographic Mock''s sign. There is no pericholecystic fluid. There are no gallstones. Common Bile Duct (C.B.D.): The common bile duct measures 8.2 mm. Pancreas: Normal size of the head of the pancreas. The body and tail obscured due to overlying bowel gas. There is normal echogenicity of the pancreas. There is no demonstrated pancreatic mass or cyst. Right Kidney: Normal size of the right kidney. The right kidney measures 8.9 cm x 4 cm x 3.9 cm. Normal renal cortex. The right cortex measures 1.1 cm. There is no demonstrated renal mass or cyst. There is no right hydronephrosis. Ascites. US/Abdomen Limited IMPRESSION: Fatty infiltration of the liver. Ascites. Electronically Signed: Valeriano Hull MD at 13:34 EST ,
--- OUTSIDE RECORDS SUMMARY | 2023-11-08 11:59 | XMS RPT_ITS | CCD ---
Author Name Unknown Address [address] [place] [address] Organization [facility] Care Team Providers Care Bowling Ball Molder Name Role Phone Unavailable Primary Care Provider Unavailjairo Garibay MD, Morris Primary Care Provider AARON WHEATON Primary Care Unavailable HAILE MALDONADO Attending Unavailable HAILE MALDONADO Referring Unavailable NEPTALI, CHATHUR Referring Unavailable NEPTALI, CHATHUR Referring Unavailable SETH HINES Admitting Unavailable SETH HINES Attending Unavailable [facility] Primary Care Unavailable SELF, SELF Referring Unavailable ANNABEL GOETZ Attending Unavailable [facility] Primary Care Unavailable ANNABEL GOETZ Attending Unavailable [facility] Primary Care Unavailable SELF, SELF Referring Unavailable [facility] Primary Care Unavailable NEPTALI, CHATHUR Referring Unavailable [facility] Primary Care Unavailable MANUEL AMBER Attending Unavailable NEPTALI, CHATHUR Referring Unavailable NEPTALI, CHATHUR Attending Unavailable [facility] Primary Care Unavailable NEPTALI, CHATHUR Attending Unavailable SELF, SELF Referring Unavailable SELF, SELF Referring Unavailable NEPTALI, CHATHUR Attending Unavailable NEPTALI, CHATHUR Referring Unavailable NEPTALI, CHATHUR Attending Unavailable NEPTALI, CHATHUR Attending Unavailable [facility] Primary Care Unavailable SELF, SELF Referring Unavailable SELF, SELF Referring Unavailable NEPTALI, CHATHUR Attending Unavailable SELF, SELF Referring Unavailable BUTNARIUKEN I Attending Unavailable NEPTALI, CHATHUR Referring Unavailable [facility] Primary Care Unavailable SELF, SELF Referring Unavailable FRIEND, DAMIAN Referring Unavailable NEPTALI, CHATHUR Attending Unavailable Medications Current Medications Medication Drug Class(es) Dates Sig (Normalized) Sig (Original) Acetaminophen / oxyCODONE (9 sources) Opioid Agonist take 5 capsules by mouth once daily OXYCODONE-ACETAM INOPHEN PO Take 5 capsules by mouth daily. 0 Active albuterol 90 MCG/ACT Inhaler (1 source) take 2 puff(s) by inhalation every six hours as needed albuterol 90 MCG/ACT Inhaler Inhale 2 puffs every 6 hours as needed. 0 Active lidocaine hydrochloride 20 mg/ml mucous membrane topical solution (1 source) Antiarrhythmic, Amide Local Anesthetic take 15 mL oropharyngeal route every three hours as needed Lidocaine HCl (Lidocaine viscous) 2 % Solution 15 mL by Mouth/Throat route every 3 hours as needed. 0 Active midodrine hydrochloride 5 mg oral tablet (13 sources) alpha-Adrenergic Agonist Start: 08-30-2023 End: 09-29-2023 take 3 tablets by mouth three times daily midodrine 5 MG tablet Take 3 tablets by mouth 3 times daily. 270 tablet 0 08/30/2023 09/29/2023 Active Completed/Discontinued Medications Medication Drug Class(es) Dates Sig (Normalized) Sig (Original) acetaminophen 325 mg oral tablet (1 source) Start: 08-28-2023 End: 08-30-2023 take 1 tablet by mouth every six hours as needed Acetaminophen (TYLENOL) tablet 650 mg Albumin Human, [facility] (2 sources) Human Serum Albumin Start: 08-29-2023 End: 08-29-2023 albumin human 25 % injection 50 g Problems Problem Classification Problem Date Documented Da te Episodic/Chronic Hepatitis (4 sources) Cirrhosis - non-alcoholic; Translations: [Nonalcoholic steatohepatitis (HARRISON)] Onset: 08-28-2023 08-28-2023 Chronic Other gastrointestinal disorders (2 sources) Celiac disease; Translations: [Celiac disease] Onset: 02-13-2023 Chronic Other gastrointestinal disorders (5 sources) Ascites; Translations: [Other ascites] Onset: 08-28-2023 07-05-2023 Episodic Other gastrointestinal disorders (1 source) Other ascites; Translations: [Other ascites] Onset: 08-28-2023 Episodic Other liver diseases (1 source) Non-alcoholic fatty liver; Translations: [Fatty (change of) liver, not elsewhere classified] Chronic Other liver diseases (3 sources) Cirrhosis of liver; Translations: [Other cirrhosis of liver] Onset: 08-28-2023 08-10-2023 Chronic Other liver diseases (2 sources) Unspecified cirrhosis of liver; Translations: [Unspecified cirrhosis of liver] Onset: 09-11-2023 Chronic Other liver diseases (1 source) Other cirrhosis of liver; Translations: [Other cirrhosis of liver] Onset: 08-28-2023 Chronic Other liver diseases (2 sources) Fatty (change of) liver, not elsewhere classified; Translations: [Fatty (change of) liver, not elsewhere classified] Onset: 11-09-2022 Chronic Other liver diseases (5 sources) Decompensated cirrhosis of liver; Translations: [Hepatic failure, unspecified without coma] Episodic Other liver diseases (2 sources) Hepatic failure, unspecified without coma; Translations: [Hepatic failure, unspecified without coma] Onset: 09-11-2023 Episodic Other nutritional; endocrine; and metabolic disorders (9 sources) Obese class I; Translations: [Obesity, unspecified] Onset: 11-07-2022 11-07-2022 Chronic Results Test Name Value Interpretation Reference Range Facil ity Vital Signs Date Time Vital Sign Value Performing Clinician Faci lity 10-16-2023 10:59-0500 Body mass index (BMI) [Ratio] 31.91 kg/m2 Annabel WOODARD Work Phone: [facility] 10-16-2023 10:59-0500 Body weight 76.61 kg Annabel WOODARD Work Phone: [facility] 10-16-2023 10:59-0500 Diastolic blood pressure 58 mm[Hg] Annabel WOODARD Work Phone: [facility] 10-16-2023 10:59-0500 Heart rate 103 /min Annabel WOODARD Work Phone: [facility] 10-16-2023 10:59-0500 SaO2% (BldA) [Mass fraction] 98 % Annabel WOODARD Work Phone: [facility] 10-16-2023 10:59-0500 Systolic blood pressure 98 mm[Hg] Annabel Goetz LITHOGRAPHIC PHOTOGRAPHER APPRENTICE-AUTOMATIC MACHINE ATTENDANT Work Phone: [facility] 08-30-2023 13:44-0400 Body temperature 97.39 [degF] Seth Hines MD, MPH Work Phone: [facility] 08-30-2023 13:44-0400 Diastolic blood pressure 52 mm[Hg] Seth Hines MD, MPH Work Phone: [facility] 08-30-2023 13:44-0400 Heart rate 65 /min Seth Hines MD, MPH Work Phone: [facility] 08-30-2023 13:44-0400 Respiratory rate 16 /min Seth Hines MD, MPH Work Phone: [facility] 08-30-2023 13:44-0400 SaO2% (BldA) [Mass fraction] 97 % Seth Hines MD, MPH Work Phone: [facility] 08-30-2023 13:44-0400 Systolic blood pressure 95 mm[Hg] Seth Hines MD, MPH Work Phone: [facility] 08-28-2023 11:49-0400 Body height 154.9 cm Seth Hines MD, MPH Work Phone: [facility] 08-28-2023 11:49-0400 Body mass index (BMI) [Ratio] 32.9 kg/m2 Seth Hines MD, MPH Work Phone: [facility] 08-28-2023 11:49-0400 Body weight 78.97 kg Seth Hines MD, MPH Work Phone: [facility] 08-27-2023 13:10-0400 Body height 160 cm Haile Maldonado LITHOGRAPHIC PHOTOGRAPHER APPRENTICE-AUTOMATIC MACHINE ATTENDANT Work Phone: [facility] 10-30-2023 13:10-0400 Body mass index (BMI) [Ratio] 30.47 kg/m2 Haile Erica LITHOGRAPHIC PHOTOGRAPHER APPRENTICE-AUTOMATIC MACHINE ATTENDANT Work Phone: [facility] 08-27-2023 13:10-0400 Body weight 78 kg Haile Erica LITHOGRAPHIC PHOTOGRAPHER APPRENTICE-AUTOMATIC MACHINE ATTENDANT Work Phone: [facility] 08-27-2023 13:10-0400 Diastolic blood pressure 62 mm[Hg] Haile Maldonado LITHOGRAPHIC PHOTOGRAPHER APPRENTICE-AUTOMATIC MACHINE ATTENDANT Work Phone: [facility] 08-27-2023 13:10-0400 Heart rate 80 /min Haile Maldonado LITHOGRAPHIC PHOTOGRAPHER APPRENTICE-AUTOMATIC MACHINE ATTENDANT Work Phone: 2(068)[phone] [place] [address] 08-27-2023 13:10-0400 Systolic blood pressure 94 mm[Hg] Haile Maldonado LITHOGRAPHIC PHOTOGRAPHER APPRENTICE-AUTOMATIC MACHINE ATTENDANT Work Phone: 7(017)947-155007 [place] [address] 08-27-2023 08:36-0400 Body height 160 cm Annabel Goetz LITHOGRAPHIC PHOTOGRAPHER APPRENTICE-AUTOMATIC MACHINE ATTENDANT Work Phone: [facility] 08-27-2023 08:36-0400 Body mass index (BMI) [Ratio] 30.47 kg/m2 Annabel Goetz LITHOGRAPHIC PHOTOGRAPHER APPRENTICE-AUTOMATIC MACHINE ATTENDANT Work Phone: [facility] 08-27-2023 08:36-0400 Body weight 78.02 kg Annabel Goetz LITHOGRAPHIC PHOTOGRAPHER APPRENTICE-AUTOMATIC MACHINE ATTENDANT Work Phone: [facility] 08-27-2023 08:36-0400 Diastolic blood pressure 62 mm[Hg] Annabel Goetz LITHOGRAPHIC PHOTOGRAPHER APPRENTICE-AUTOMATIC MACHINE ATTENDANT Work Phone: [facility] 08-27-2023 08:36-0400 Heart rate 80 /min Annabel Goetz LITHOGRAPHIC PHOTOGRAPHER APPRENTICE-AUTOMATIC MACHINE ATTENDANT Work Phone: [facility] 08-27-2023 08:36-0400 SaO2% (BldA) [Mass fraction] 95 % Annabel Goetz LITHOGRAPHIC PHOTOGRAPHER APPRENTICE-AUTOMATIC MACHINE ATTENDANT Work Phone: [facility] 08-27-2023 08:36-0400 Systolic blood pressure 94 mm[Hg] Annabel Goetz VANCE Work Phone: [facility] 08-10-2023 08:43-0400 Body temperature 97.81 [degF] [facility] 08-10-2023 08:43-0400 Diastolic blood pressure 57 mm[Hg] [facility] 08-10-2023 08:43-0400 Heart rate 84 /min [facility] 08-10-2023 08:43-0400 SaO2% (BldA) [Mass fraction] 97 % [facility] 08-10-2023 08:43-0400 Systolic blood pressure 107 mm[Hg] [facility] 07-05-2023 17:18-0400 Body height 160 cm Randal Vital MD Work Phone: [facility] 07-05-2023 17:18-0400 Body mass index (BMI) [Ratio] 28.34 kg/m2 Randal Vital MD Work Phone: [facility] 07-05-2023 17:18-0400 Body weight 72.58 kg Randal Vital MD Work Phone: [facility] 07-05-2023 17:18-0400 Diastolic blood pressure 57 mm[Hg] Randal Vital MD Work Phone: [facility] 07-05-2023 17:18-0400 Heart rate 74 /min Randal Vital MD Work Phone: [facility] 07-05-2023 17:18-0400 Systolic blood pressure 96 mm[Hg] Randal Vital MD Work Phone: [facility] 05-23-2023 09:47-0400 Body height 159.8 cm Randal Vital MD Work Phone: [facility] 05-23-2023 09:47-0400 Body mass index (BMI) [Ratio] 31.22 kg/m2 Randal Vital MD Work Phone: [facility] 05-23-2023 09:47-0400 Body weight 79.7 kg Randal Vital MD Work Phone: 3(070)[phone] [place] [address] 05-23-2023 09:47-0400 Diastolic blood pressure 62 mm[Hg] Randal Vital MD Work Phone: 7(032)[phone] [place] [address] 05-23-2023 09:47-0400 Heart rate 78 /min Randal Vital MD Work Phone: 3(464)[phone] [place] [address] 05-23-2023 09:47-0400 Respiratory rate 16 /min Randal Vital MD Work Phone: [facility] 05-23-2023 09:47-0400 SaO2% (BldA) [Mass fraction] 99 % Randal Vital MD Work Phone: [facility] 05-23-2023 09:47-0400 Systolic blood pressure 104 mm[Hg] Randal Vital MD Work Phone: 0(368)[phone] [place] [address] 02-26-2023 13:27-0400 Body height 160 cm Randal Vital MD Work Phone: 7(297)[phone] [place] [address] 02-26-2023 13:27-0400 Body mass index (BMI) [Ratio] 33.16 kg/m2 Randal Vital MD Work Phone: [facility] 02-26-2023 13:27-0400 Body weight 84.9 kg Randal Vital MD Work Phone: [facility] 02-26-2023 13:27-0400 Diastolic blood pressure 78 mm[Hg] Randal Vital MD Work Phone: [facility] 02-26-2023 13:27-0400 Systolic blood pressure 112 mm[Hg] Randal Vital MD Work Phone: [facility] 11-07-2022 16:13-0500 Body height 157.5 cm Randal Vital MD Work Phone: [facility] 11-07-2022 16:13-0500 Body mass index (BMI) [Ratio] 34.2 kg/m2 Randal Vital MD Work Phone: [facility] 11-07-2022 16:13-0500 Body weight 84.82 kg Randal Vital MD Work Phone: [facility] 11-07-2022 16:13-0500 Diastolic blood pressure 70 mm[Hg] Randal Vital MD Work Phone: [facility] 11-07-2022 16:13-0500 Heart rate 88 /min Randal Vital MD Work Phone: [facility] 11-07-2022 16:13-0500 Respiratory rate 18 /min Randal Vital MD Work Phone: [facility] 11-07-2022 16:13-0500 SaO2% (BldA) [Mass fraction] 98 % Randal Vital MD Work Phone: [facility] 11-07-2022 16:13-0500 Systolic blood pressure 102 mm[Hg] Randal Vital MD Work Phone: [facility] Encounters Encounter Date Encounter Type Care Provider Facility Start: 10-16-2023 End: 10-16-2023 Office outpatient visit 25 minutes Annabel Goetz LITHOGRAPHIC PHOTOGRAPHER APPRENTICE-AUTOMATIC MACHINE ATTENDANT Work Phone: [facility] [place] Procedures Date Procedure Procedure Detail Performing Clinician Start: 08-30-2023 Assay of magnesium Will kenya Contreras MD Work Phone: Start: 08-30-2023 Hepatic function panel Tk Contreras MD Work Phone: Start: 08-29-2023 GENERAL PROCEDURE Ediliachriss Trent DO Work Phone: Start: 08-29-2023 End: 08-29-2023 Creatinine blood Marilia NEAL Work Phone: Start: 08-29-2023 End: 08-29-2023 TRANSFUSE OR PLASMA Allan Levin LITHOGRAPHIC PHOTOGRAPHER APPRENTICE-C RNA Start: 08-29-2023 Bilirubin direct Wally Contreras MD Work Phone: Start: 08-28-2023 ABORH TYPE RECONFIRMATION Daniel May MD Work Phone: Start: 08-28-2023 End: 08-28-2023 Antibody screen Seth Hines MD, MPH Work Phone: Plan of Treatment Date Care Activity Detail Author Start: 10-16-2024 Potassium [Moles/volume] in Serum or Plasma POTASSIUM [facility] Start: 08-27-2024 Potassium [Moles/volume] in Serum or Plasma POTASSIUM [facility] Start: 08-10-2024 Potassium [Moles/volume] in Serum or Plasma POTASSIUM [facility] Start: 05-23-2024 Potassium [Moles/volume] in Serum or Plasma POTASSIUM [facility] Start: 02-27-2024 Potassium [Moles/volume] in Serum or Plasma POTASSIUM [facility] Start: 01-02-2024 End: 01-02-2024 Patient encounter procedure 01/02/2024 10:30 AM EST Office Visit [facility] [place] [address] [place] [address] Randal Vital MD [address] [place] [address] [facility] [place] Start: 12-28-2023 End: 10-16-2024 US Abdomen RUQ US ABDOMEN RUQ/LIVER/GB Imaging Routine 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 Expected: 12/28/2023 (Approximate), Expires: 10/16/2024 [facility] Immunizations Immunization Date Immunization Notes Care Provider Fa luceroty 05-23-2023 Pneumococcal Conjuga te 20-Valent Vaccine Randal Vital MD Work Phone: [facility] Social History Date Type Detail Facility Start: 11-07-2022 Tobacco smoking stat us TXIS Never smoked tobacco [facility] Start: 11-07-2022 Tobacco use and exposure Smokeless tobacco non-user [facility] Start: 11-07-2022 End: 10-16-2023 Alcohol intake Lifetime non-drinker (finding) [facility] Start: 1960 Sex Assigned At Not on file O [facility] Start: 10-28-2022 End: 11-07-2022 Exposure to SARS-CoV-2 (event) Unable to assess [facility] Start: 05-23-2023 End: 10-16-2023 History of Social function [facility] Start: 05-23-2023 End: 10-16-2023 Tobacco use panel [facility] Clinical Notes 11-07-2022 to 10-16-2023 VANCE Cuellar - 10/16/2023 11:30 AM Sole Olmstead LPN - 10/16/2023 11:30 AM Angelika Wright - 08/30/2023 4:42 PM Issac Garcia - 08/30/2023 3:48 PM EDTDischarge Instructions Note Date & Type Note Facility 10-16-2023 History of Presen t illness Narrative CLINICAL CARE TEAM: -Referring Provider for today's consult: Darlene Garibay MD -Primary Care Provider: Darlene Garibay HISTORY OF PRESENT ILLNESS: Madhavi Avalos is a 63 y.o. female who presents to the [facility] today for follow-up. I have reviewed her medical, surgical, and social history and have updated medication and allergy information in the computerized patient record. Madhavi Avalos has a history of decompensated [facility] cirrhosis c/b refractory ascites despite diuretics and weekly paracentesis, EV s/p EBL. History also notable for obesity and CCY She was diagnosed with cirrhosis 2020 when she presented to [facility] with hematemesis and was noted to have volume overload and ascites. She underwent EGD at that time with EBL. Her ascites has been difficult to control despite diuretics and weekly LVPs. She was admitted for elective TIPS on 08/29, however due to patient's anatomy, size of the liver, length of the right hepatic vein and the angle between the right atrium, IVC and right hepatic vein, it was not possible to advance the sheath into the right hepatic vein. Her lasix was discontinue and she was started on torsemide 20 mg BID and was continued on aldactone 300 mg daily. LILI 08/27/2023 Since LILI, the patient reports ongoing issues with ascites. She has been requiring paracentesis weekly with 5-7L removed. She reports nausea without vomiting. She has been coughing up white sputum, her PCP prescribed an antibiotic that she will be picking up today. She has reports coughing attacks where she develops SOB and dizziness from coughing so hard. Otherwise, she denies signs or symptoms of worsening liver function including jaundice, pruritus, gastrointestinal bleeding or mental status changes suggestive of encephalopathy. Otherwise, she denies any recent fevers, chills, night sweats, unexpected weight loss, chest pain, shortness of breath, vomiting, abdominal pain, diarrhea, constipation, melena, hematochezia. PAST MEDICAL, SURGICAL, FAMILY, & SOCIAL HISTORY: Past Medical History: Diagnosis Date Abdominal wall hernia Liver disease HARRISON cirrhosis Obesity TB (tuberculosis) 01/2023 Completed treated for 3 months Past Surgical History: Procedure Laterality Date INSERTION SHUNT TRANSVENOUS INTRAHEPATIC PORTOSYSTEMIC PERCUTANEOUS (TIPS) N/A 08/29/2023 Laterality: N/A; Surgeon: Amber Manuel MD; Location: [facility] INTERVENTIONAL RADIOLOGY (VIR) PARACENTESIS ABDOMINAL W/ IMAGING GUIDANCE N/A 08/29/2023 Laterality: N/A; Surgeon: Amber Manuel MD; Location: [facility] INTERVENTIONAL RADIOLOGY (VIR) ESOPHAGOSCOPY W/ LIGATION BAND ESOPHAGEAL VARICES 10/2022 CHOLECYSTECTOMY 2021 History reviewed. No pertinent family history. Social History Socioeconomic History Marital status: Tobacco Use Smoking status: Never Smokeless tobacco: Never Vaping Use Vaping Use: Never used Substance and Sexual Activity Alcohol use: Never Drug use: Never MEDICATIONS: Current Outpatient Medications Medication Sig Lactulose 10 GM/15ML Solution oral solution Take 30 mL by mouth 2 times daily. Ondansetron 4 MG tablet Take 1 tablet by mouth every 12 hours. OXYCODONE-ACETAMINOPHEN PO Take 5 capsules by mouth daily. PROMETHAZINE-CODEINE PO Take by mouth. 5 to 10 ml q6hr Spironolactone 100 MG tablet Take 3 tablets by mouth daily. Torsemide 20 MG tablet Take 1 tablet by mouth 2 times daily (take before meals). ALLERGIES: Patient has no known allergies. PHYSICAL EXAM: BP 98/58 (BP Location: Left arm, BP Position: Sitting) Pulse 103 Wt 76.6 kg (168 lb 14.4 oz) SpO2 98% BMI 31.91 kg/m Smoking Status Never Constitutional: Breathing easily, in no acute distress. Does not appear cachectic. HEENT: PER, neg scleral icterus, normal appearing oropharynx, no appreciable cervical LAD Cardiovascular: Normal rate and regular rhythm. Pulmonary/Chest: Breath sounds normal. Abdominal: Soft. Distended. NT. HS. +reducible umbilical hernia Extrem: 1+ BLE edema. No gross focal motor deficits in distal extrem. Neurological: AOx4. No asterixis Skin: Does not appear jaundiced. +spiders -palmar erythema REVIEW OF SYSTEMS; otherwise full ROS was reviewed and was otherwise negative Review of Systems Constitutional: Negative. HENT: Negative. Cardiovascular: Negative. Musculoskeletal: Negative. Psychiatric: Negative. Lymph/Heme: Negative. LABORATORY EVALUATION: I have reviewed her pertinent laboratory data in the computerized patient record. Lab Results Component Value Date/Time PT 20.3 (H) 08/29/2023 03:08 AM INR 1.8 (H) 08/29/2023 03:08 AM PLATELET 62 (L) 08/30/2023 03:25 AM WBC 3.27 (L) 08/30/2023 03:25 AM HGB 9.4 (L) 08/30/2023 03:25 AM POTASSIUM 4.0 08/30/2023 03:25 AM POTASSIUM 6.3 (HH) 08/29/2023 11:40 AM BUN 20 08/30/2023 03:25 AM CREATSERUM 0.65 08/30/2023 03:25 AM CREATSERUM 0.49 (L) 07/05/2023 05:10 PM GFR >90 08/30/2023 03:25 AM GFR >90 07/05/2023 05:10 PM Lab Results Component Value Date ALT 16 08/30/2023 AST 31 08/30/2023 ALKPHOS 90 08/30/2023 BILITOTAL 2.2 (H) 08/30/2023 BILIDIRECT 0.9 (H) 08/30/2023 MELD 3.0: 16 at 08/30/2023 3:25 AM MELD-Na: 16 at 08/30/2023 3:25 AM Calculated from: Serum Creatinine: 0.65 mg/dL (Using min of 1 mg/dL) at 08/30/2023 3:25 AM Serum Sodium: 138 mmol/L (Using max of 137 mmol/L) at 08/30/2023 3:25 AM Total Bilirubin: 2.2 mg/dL at 08/30/2023 3:25 AM Serum Albumin: 3.5 g/dL at 08/30/2023 3:25 AM INR(ratio): 1.8 at 08/29/2023 3:08 AM Age at listing (hypothetical): 63 years Sex: Female at 08/30/2023 3:25 AM Wt Readings from Last 3 Encounters: 10/16/23 76.6 kg (168 lb 14.4 oz) 09/11/23 75.1 kg (165 lb 9.6 oz) 08/28/23 79 kg (174 lb 1.6 oz) Imaging/Procedures 07/05/2023 CT A/P with Contrast IMPRESSION: 1. Cirrhosis with stigmata of portal hypertension, including splenomegaly, large ascites and portosystemic collaterals. 2. Moderate umbilical hernia containing fat and loculated ascites. 3. Partial visualization of severe bronchiectatic changes in the right lower lobe with bronchial wall thickening and volume loss. 02/26/2023 Echo Poor image quality. No apical or subcostal images obtained. The LV segments seen contract normally. Multiple segments not seen, thus an EF cannot be determined. Apparent normal RV function. No significant mitral or aortic valve disease on limited 2D images. No saline contrast study performed due to poor image quality. 09/11/2023 EGD Impression: - Small (< 5 mm) esophageal varices. - Scar in the lower third of the esophagus. - Portal hypertensive gastropathy. - A large amount of food (residue) in the stomach. The food was suctioned as much as possible, however the fundus was not evaluated due to the food presence. - Normal examined duodenum. - No specimens collected. 11/06/2022 EGD Impression: - Grade III EVs. Incompletely eradicated. Banded. - A medium amount of food (residue) in the stomach - PHG - Normal first portion of the duodenum - No specimens collected ASSESSMENT AND PLAN: Madhavi Avalos is a 63 y.o. female with a history of decompensated [facility] cirrhosis c/b refractory ascites despite diuretics and weekly paracentesis, EV s/p EBL. She was admitted for elective TIPS on 08/29, however due to patient's anatomy, size of the liver, length of the right hepatic vein and the angle between the right atrium, IVC and right hepatic vein, it was not possible to advance the sheath into the right hepatic vein. She is still having diuretic refractory ascites requiring weekly paracentesis. Plan [facility] Cirrhosis: MELD 3.0 16 from previous labs. Will recheck MELD labs today. Ascites: Abdomen distended, soft. 1+ BLE edema. Continue weekly paracentesis prn. Will consider up-titration in diuretics pending renal function. I would recommend adherence to a strict 2 gram, low sodium diet. EV: 09/11 EGD with small EVs, however prep was poor. Repeat EGD ordered, will assist with scheduling HE: A&Ox4. Hx of HE. Continue lactulose, titrate to 3-4 BMs/day HCC: RUQ US due 12/2023, ordered to be done locally. I would recommend ongoing surveillance for HCC with abdominal imaging in conjunction with serum AFP every 6 months. In addition, I would recommend vaccination against hepatitis A and B. I recommend lifelong abstinence from alcohol and tobacco. I would strictly avoid using NSAIDs for pain control given their risk for mucosal ulceration, bleeding and nephrotoxicity. For pain, I recommend acetaminophen, up to but not exceeding 2,000 mg daily. I would recommend against using narcotics or benzodiazepines given their risk for precipitating or exacerbating hepatic encephalopathy. I would strictly avoid raw shellfish given the risk of Vibrio Vulnificus in cirrhotics. I discussed my impression and plan with the patient. The patient had the opportunity to ask all questions regarding their condition and answered those questions to the best of my ability Discussion with patient and /or family with regards to: Diagnostic results and or recommended studies Risks and benefits of management or treatment options Important of compliance with chosen treatment Risk factor reduction Patient and family education FOLLOW-UP -For follow up, she will return to Dr. Vital's clinic as scheduled on 01/02/2024 Thank you for allowing me to participate in the care of Madhavi Avalos. VANCE Culelar Hepatology Nurse Practitioner Division of Gastroenterology, Hepatology, & Nutrition [facility] This nurse used sweeping compound blender [id number]. This nurse verified pts name and . documented in this encounter [facility] 08-30-2023 History of Presen t illness Narrative Images from the original note were not included. [facility] Note: Bedside Delivery Documentation The following prescription(s) were delivered to the patient's bedside. Michelet Wright [facility] ([place]) [phone] [facility] [phone] [facility] Bedside Delivery [phone] [facility] [phone] [facility] Bedside Delivery [phone] [place] [phone] [facility] Bedside Delivery [phone] [place] [phone] [place] [phone] Images from the original note were not included. [facility] Note: Non-Verbal Med Rec [facility] received the following discharge prescription(s): Total cost is $0.00. I have reviewed the Discharge Rx Reconciliation Report. The discharge prescription(s) will be delivered to the patient on 08/30/2023. [facility] ([place]) [phone] [facility] [phone] [facility] Bedside Delivery [phone] [facility] [phone] [facility] Bedside Delivery [phone] [place] [phone] [facility] Bedside Delivery [phone] [place] [phone] [place] [phone] Final Discharge Planning and Transportation Final Discharge Planning Discharge Disposition: Home Services at Discharge: Outpatient clinical services (ie: lab draws, transfusions, injectables) Plan Plan: home with follow up Patient/Family In Agreement With Plan: yes Medication assistance helping with new medications. Transportation Transport Request Mode of Transfer: Private Vehicle daughter CM had conversation with patient/caregiver related to specialty care follow-up. Barriers identified: Otherno insurance Outpatient CM was not contacted related to barriers Nadira Mauricio RN, GROUND CONTROL APPROACH TECHNICIAN-S, ACM R 9 E Clinical Visual Display Manager Telephone # available in Treatment team. Also available via Secure Chat. Acute Physical Therapy Evaluation Prior to Admission [facility] score(s): PRIOR LEVEL AM-PAC Mobility Raw Score: 23 Current AM-PAC score(s): CURRENT AM-PAC Mobility Raw Score: 20 Based on the above AM-PAC score(s) and PT clinical judgment, patient is a good candidate for discharge to Home with Home Health Barriers to discharge home: Patient needs assistance with functional mobility Mobility equipment available at home: 2 wheeled walker ADL equipment available at home: shower chair Equipment needed for discharge: (would benefit from rollator for community distances) Current therapy frequency recommendation in acute: Therapy Frequency: 3 times a week Precautions and Weightbearing Status: Existing Precautions/Restrictions: no known precautions/restrictions No critical lines at this time Patient Safety Communication Prior to Visit: Nursing Subjective: Patient sitting upright in bed upon arrival. Friendly and agreeable to PT treatment with RN approval. Latvian speaking- daughter present and assists with translation as needed. Pain: General Pain Documentation (Adult, OB, Peds) Presence of Pain: denies pain/discomfort Presence of Pain Score (Auto-calculated): 0 Home Setting Residence: House Lives With: spouse First floor setup: bedroom, half bath Second floor setup: tub shower Number of stairs to enter home: 1 Number of stairs in home: full flight to full bathroom Mobility Equipment Available: 2 wheeled walker ADL Equipment Available: shower chair Previous Level of Function Prior level ADL Overview: Needs assist Bathing: needs device and assist Upper Body Dressing: independent Lower Body Dressing: independent Grooming: independent Toileting: independent Eating: independent Bed Mobility/Transfers: independent Ambulation Skills: independent Assistive Device: 2 wheeled walker, straight cane Prior Level of Function Details: Daughter lives close, assists as needed Objective/Observation: Vitals/Vitals Responses to Treatment: WFL; no s/s of distress with activity. O2 Device: room air Cognition Overall Cognitive Status: Within Functional Limits Arousal/Alertness: Appropriate responses to stimuli Orientation Level: Oriented X4 Following Commands: Follows all commands and directions without difficulty Vision Screen Currently wearing corrective lenses: No Speech Speech: no gross deficits noted Hearing Hearing: no gross deficits noted Extremity Assessments: RLE Assessment RLE Assessment: Within Functional Limits LLE Assessment LLE Assessment: Within Functional Limits Sensation Overall Sensation: Intact Proprioception Proprioception: intact Mobility Assessment: Supine to Sit Mobility Berg[place] Level: Supine->Sit: modified independence Bed Features/Set-up: Supine->Sit: Head of bed elevated Skilled Rationale: Verbal cues, Initiation and execution of task Sit to Supine Mobility [place] Level: Sit->Supine: modified independence Bed Features/Set-up: Sit->Supine: Head of bed elevated, Use of bed rail Skilled Rationale: Verbal cues, Initiation and execution of task Balance: Sitting Balance Static Sitting-Level of Assistance: Independent Dynamic Sitting-Level of Assistance: Supervision Standing Balance Static Standing-Level of Assistance: Supervision Dynamic Standing-Level of Assistance: Stand-by assist Standing-Balance Support: No upper extremity supported Skilled Rationale: Verbal cues, Full extension to upright positioning/posture, Technique of activity, Initiation and execution of task Standing Balance Skilled Intervention/Details: No LOB during short distance ambulation without device Transfer Assessment: Sit to Stand Transfer Bergen Level: Sit->Stand: stand-by assist Assistive Device: Sit->Stand: gait belt Skilled Rationale: Verbal cues, Initiation and execution of task Skilled Intervention/Details: Sit->Stand: X1 EOB Stand to Sit Transfer Bergen Level: Stand->Sit: stand-by assist Assistive Device: Stand->Sit: gait belt Skilled Rationale: Sequencing, Hand placement, Verbal cues, Controlled descent for sitting Gait/Functional Mobility: Gait Assessment Bergen Level: Gait: stand-by assist Assistive Device: Gait: gait belt Ambulation Distance (Feet): 100 Gait Deviations Identified: decreased temitope, decreased gait speed, decreased heel strike, decreased step length Gait Skilled Rationale: verbal (cueing for arm swing) Skilled Intervention/Details - Gait: Pt ambulated 100' w/o device; initially ambulating with trunk and BUE's in flexed, rigid position, but improved with cueing for use of arm swing to optimize gait mechanics Stairs: Stairs Assessment Bergen Level: Stair Negotiation: not tested Outcome Score(s): CURRENT [facility] Basic Mobility Inpatient Short Form Turning over in bed: 4 - No Assistance Sitting/standing from chair: 3 - A Little Assistance Moving from lying on back to sittin - No Assistance Moving to and from bed to chair: 3 - A Little Assistance Walk in hospital room: 3 - A Little Assistance Climbing 3-5 steps with a railin - A Little Assistance CURRENT [facility] Mobility Raw Score: 20 CURRENT [facility] Mobility Functional Limitation/Modifier: 35.83% Currently Impaired in Basic Mobility - CJ Assessment & Plan: Patient was admitted for decompensated cirrhosis with GIB s/p TIPS and seen for therapy evaluation related to above to evaluate for fall risk and to assist with discharge planning. Exam findings include impairments in: Strength, Balance, Posture, Gait/Locomotion, Aerobic capacity/endurance. These impairments contribute to functional limitations including Decreased ambulation distance/endurance, Increased fall risk, Difficulty ambulating on uneven/dynamic surfaces, Difficulty with transfers, Decreased functional mobility. Home with HHPT and family support Current clinical presentation is Stable - unchanging or predictable (Low). Patient history factors impacting Plan Of Care include PMH. Patient will benefit from skilled physical therapy to address these impairments, functional limitations, and participation restrictions and has good rehab potential to achieve therapy goals. Planned Therapy Interventions: balance training, bed mobility training, functional activity tolerance, endurance, gait training, neuromuscular re-education, postural re-education, strengthening, transfer training Patient Instruction/Education this session: role of PT; discharge planning Plan for next session: Progress ambulation distance; stair training Acute PT Goals Plan of Care by Val Yoo PT at 08/30/2023 8:26 AM Version 1 of 1 Problem: PT - Balance/Coordination/Neuro Re-Education Goal: Standing Dynamic/Static Balance Description: Pt will perform standing balance tasks for 15 minutes with independence with least restrictive assistive device in order to improve functional mobility and safety with standing tasks. Outcome: Ongoing Problem: PT - Mobility Goal: Ambulation Description: Pt will ambulate 250 feet with least restrictive device with independence to improve ability to navigate home environment. Outcome: Ongoing Goal: Stairs Description: Pt will ascend/descend full flight stairs with railings with independence with least restrictive device to improve ability to perform functional mobility necessary in recommended discharge environment. Outcome: Ongoing Problem: PT - Transfers Goal: Supine <-> Sit Description: Pt will perform bed mobility with flat bed & no rail with independence in order to improve functional mobility and safety. Outcome: Ongoing Goal: Sit <-> Stand Description: Pt will perform sit to/from stand transfers with independence with least restrictive device in order to improve functional mobility and safety. Outcome: Ongoing Goal: Strength/ROM Description: Pt will perform 3 sets of 10 repetitions of lower bilateral extremity exercises with independence in order to improve strength, maintain ROM, necessary for functional mobility. Outcome: Ongoing PT treatment consisted of the following to progress towards the above goal(s): PT Evaluation and Treatment Time PT Evaluation (Low) Time Entry: 14 Evaluating Therapist: Val Yoo PT Additional Details: PT Co-Eval/Treatment Information Co-evaluation/co-treatment performed?: Yes, simultaneous billable skilled care was necessary due to medical complexity and functional deficits Other discipline: OT Rationale for need to co-eval/treat: postural control Co-treatment goal focus: balance, transfer, mobility Evaluation Complexity Components History: Moderate (1-2 personal factors and/or comorbidities) Body Systems Review: Moderate (Addressing a total of 3 or more elements) Clinical Presentation: Stable - unchanging or predictable (Low) Clinical Decision Making: Low Time In: 08 Time Out: 0840 Total Visit Time: 14 minutes Total Treatment Time (skilled, billable minutes): 14 minutes PPE used during patient interaction: facemask, gloves Patient location at end of session: bed with head of bed elevated Alarms on at end of session: RN aware Needs in reach. Upon discontinuation of Acute Care Physical Therapy Services or patient discharge from the hospital this note represents the current Physical Therapy Discharge Summary. Acute Occupational Therapy Evaluation Prior to Admission AM-PAC Score: PRIOR LEVEL AM-PAC Activity Raw Score: 23 Current AM-PAC score(s): CURRENT AM-PAC Activity Raw Score: 19 Based on the above AM-PAC score(s) and OT clinical judgment, discharge destination recommendation is: Home with Home Health Barriers to discharge home: Patient needs assistance with functional mobility, Patient needs assistance with ADLs, Patient needs assistance with IADLs (see note below) Mobility equipment available at home: 2 wheeled walker ADL equipment available at home: shower chair Equipment recommendations for discharge: none Current therapy frequency recommendation(s) in acute: 3 times a week Activity Recommendations for outside of rehab session: 08/30: SBA to bathroom, OOBTC for all meals Precautions and Weightbearing Status: OT Existing Precautions/Restrictions: fall No critical lines at this time Patient Safety Communication Prior to Visit: Nursing Subjective: Pt alert and agreeable to therapy session, daughter present and supportive throughout Pain: General Pain Documentation (Adult, OB, Peds) Presence of Pain: denies pain/discomfort Presence of Pain Score (Auto-calculated): 0 Home Setting Residence: House Lives With: spouse First floor setup: bedroom, half bath Second floor setup: tub shower Number of stairs to enter home: 1 Number of stairs in home: full flight to full bathroom Mobility Equipment Available: 2 wheeled walker ADL Equipment Available: shower chair Previous Level of Function Prior level ADL Overview: Needs assist Bathing: needs device and assist Upper Body Dressing: independent Lower Body Dressing: independent Grooming: independent Toileting: independent Eating: independent Bed Mobility/Transfers: independent Ambulation Skills: independent Assistive Device: 2 wheeled walker, straight cane Prior Level of Function Details: Daughter lives close, assists as needed Objective/Observation: Vitals/Vitals Responses to Treatment: Pt without adverse events observed during session. Vision Screen Currently wearing corrective lenses: No Speech Speech: no gross deficits noted Successful Methods (Communication Strategies): verbal speech Hearing Hearing: no gross deficits noted Cognition Overall Cognitive Status: Within Functional Limits Arousal/Alertness: Appropriate responses to stimuli Orientation Level: Oriented X4 Following Commands: Follows all commands and directions without difficulty Safety Judgment: Good awareness of safety precautions Awareness of Errors: Good awareness of errors made Deficits: Fully aware of deficits Attention Span: Appears intact Memory: Appears intact Problem Solving: Able to problem solve independently ADLs: ADL Anticipated Performance (ADLs not directly observed this session): Eating, Grooming, UE Dressing, Bathing, Toileting Eating Assistance: Independent Eating Location: chair Grooming Assistance: Stand by Grooming Location: standing at sink Bathing Assistance: Minimal Bathing Location: seated on shower chair UE Dressing Assistance: Set up supervision UE Dressing Location: seated in chair LE Dressing Assistance: Set up supervision LE Dressing Location: edge of bed LE Dressing Deficit: Don/doff L shoe, Don/doff R shoe Toilet Assistance: Stand by Toileting Location: toilet Extremity Assessments: RUE Assessment RUE Assessment: Within Functional Limits LUE Assessment LUE Assessment: Within Functional Limits Balance: Sitting Balance Static Sitting-Level of Assistance: Independent Dynamic Sitting-Level of Assistance: Supervision Standing Balance Static Standing-Level of Assistance: Stand-by assist Dynamic Standing-Level of Assistance: Stand-by assist Standing-Balance Support: 2 wheeled walker Skilled Rationale: Positioning, Hand placement, Cues for increased safety Neuro: Sensation Overall Sensation: Intact Gross Coordination Gross Coordination: bilat UE intact Fine Motor Coordination Additional Documentation: (WFL) Skin and Edema: Mobility Assessment: Supine to Sit Mobility Berg[place] Level: Supine->Sit: supervision Bed Features/Set-up: Supine->Sit: Head of bed elevated Sit to Supine Mobility Berg[place] Level: Sit->Supine: supervision Bed Features/Set-up: Sit->Supine: Head of bed elevated Transfer Assessment: Sit to Stand Transfer Bergen Level: Sit->Stand: stand-by assist Assistive Device: Sit->Stand: 2 wheeled walker Skilled Rationale: Cues for increased safety, Full extension to upright positioning/posture Stand to Sit Transfer Bergen Level: Stand->Sit: stand-by assist Assistive Device: Stand->Sit: 2 wheeled walker Functional Mobility: Functional Mobility Berg[place] Level: Functional Mobility/Gait: stand-by assist Assistive Device: Functional Mobility/Gait: 2 wheeled walker Functional Mobility Distance: Distance needed for common household mobility Functional Mobility Deficits: Activity tolerance, Balance, Generalized weakness, Slowed gait speed Functional Mobility Skilled Rationale: Cues for increased safety, Walker management/safety Skilled Intervention/Details - Functional Mobility/Gait: Min cueing for safety, navigation around environmental hazards Outcome Score(s): CURRENT [facility] Daily Activity Inpatient Short Form Putting on/Taking Off Lower Body Clothin - A Little Assistance Bathin - A Little Assistance Toiletin - A Little Assistance Putting on/Taking Off Upper Body Clothin - A Little Assistance Groomin - A Little Assistance Eatin - No Assistance CURRENT [facility] Activity Raw Score: 19 CURRENT [facility] Activity Functional Limitation/Modifier: 42.80% Currently Impaired in Daily Activity - CK Interventions: Assessment & Plan: Patient was admitted for [facility] cirrhosis and seen for therapy evaluation related to ADL independence and safety within strength, endurance, balance deficits. Exam findings include impairments in: balance, endurance, strength, transfers. These impairments contribute to occupational performance limitations including bathing, dressing, grooming, functional mobility, toileting, ADL transfers. The following factors impact the plan of care: Past Medical History: Diagnosis Date Abdominal wall hernia Liver disease [place] cirrhosis Obesity TB (tuberculosis) 01/2023 Completed treated for 3 months Psychosocial Factors Positive indicators for performance: Adequate support system Possible barriers for performance: None Patient will benefit from skilled occupational therapy to address these impairments, occupational performance limitations, and participation restrictions. Patient's rehab potential is: good, to achieve stated therapy goals. Planned Therapy Interventions (OT Eval): ADL retraining, IADL retraining, balance training, transfer training Patient Instruction/Education this session: Role of OT, OT plan of care, activity recs Plan for next session: Standing ADL tolerance Acute OT Goals Plan of Care by Tanya Carlos OT at 08/30/2023 8:25 AM Version 1 of 1 Problem: OT - ADLs Goal: Toileting Description: Pt will complete toileting task including clothing management with modified independence for improved ability to safely complete self-care activities. Outcome: Ongoing Problem: OT - Balance Goal: Balance - Standing Description: Pt will perform 10 minutes of functional ADL task in standing with modified independence and balance level of modified Independent to promote safety and improved balance required for self-care activities. Outcome: Ongoing Problem: OT - Endurance Goal: Endurance Functional Mobility to Bathroom Description: Pt will demonstrate safe functional mobility to/from restroom with modified independence and least restrictive device to access standard commode for improved ability to safely complete toileting. Outcome: Ongoing OT treatment consisted of the following to work and progress towards the above goal(s): OT Evaluation and Treatment Time OT Evaluation (Low) Time Entry: 18 Evaluating Therapist: Tanya Carlos OT Additional Details: OT Co-Eval/Treatment Information Co-evaluation/co-treatment performed?: Yes, simultaneous billable skilled care was necessary due to medical complexity and functional deficits Other discipline: PT Rationale for need to co-eval/treat: postural control OT Evaluation Complexity Occupational Profile and Client History: Moderate - expanded history Assessment of Occupational Performance: Low (1-3 performance deficits) Clinical Decision/Performance Deficits: Low (problem-focused assessments w/limited treatment options) Time In: 821 Time Out: 40 Total Visit Time: 18 minutes Total Treatment Time (skilled, billable minutes): 18 minutes PPE used during patient interaction: facemask, gloves Patient location at end of session: bed with head of bed elevated Alarms on at end of session: none Needs in reach. Upon discontinuation of Acute Care Occupational Therapy Services or patient discharge from the hospital this note represents the current Occupational Therapy Discharge Summary. Occupational Therapy Attempt Note 08/29/2023 OT Therapy Completed: Attempted Attempted Reason: Patient is unavailable due to test/procedure (TIPS procedure) FLORENCIO Carvalho, OTR/L Time In: 08 Time Out: 0805 Total Visit Time: 0 minutes Total Treatment Time (skilled, billable minutes): 0 minutes Physical Therapy Attempt Note 08/29/2023 PT Therapy Completed: Attempted Attempted Reason: Patient is unavailable due to test/procedure (TIPS) Nirmala Mazariegos PT Time In: 08 Time Out: 0804 Total Visit Time: 0 minutes Total Treatment Time (skilled, billable minutes): 0 minutes Internal Medicine Daily Progress Note Patient: Madhavi Avalos, 1960, [id number] Physician: Tk Contreras MD, Hepatology Service Assessment/Plan: Madhavi Avalos is a 63 y.o. female with a history of decompensated [facility] cirrhosis c/b refractory ascites despite diuretics and weekly paracentesis, EV s/p EBL. Admitted for a planned TIPS on 08/29/2023. [facility] Cirrhosis S/p attempted TIPS procedure MELD 3.0: 17 at 08/29/2023 12:15 PM MELD-Na: 15 at 08/29/2023 12:15 PM Calculated from: Serum Creatinine: 0.48 mg/dL (Using min of 1 mg/dL) at 08/29/2023 12:15 PM Serum Sodium: 142 mmol/L (Using max of 137 mmol/L) at 08/29/2023 12:15 PM Total Bilirubin: 1.8 mg/dL at 08/29/2023 3:08 AM Serum Albumin: 2.6 g/dL at 08/29/2023 3:08 AM INR(ratio): 1.8 at 08/29/2023 3:08 AM Age at listing (hypothetical): 63 years Sex: Female at 08/29/2023 12:15 PM Sex: Female at 08/28/2023 12:25 PM Ascites: Hold lasix 120 mg daily and aldactone 300 mg daily. Recommend adherence to a strict 2 gram, low sodium diet. EV: 10/2022 EGD with large EVs s/p EBL. Repeat EGD scheduled 09/11/2023. Scheduled TIPS as discussed. HE: Alert and oriented today. Engaging in conversation. Hx of HE. Continue lactulose, titrate to 3-4 BMs/day HCC: 06/2023 CT A/P without focal liver lesion. Diet: Liver diet DVT ppx: SCDs Access: PIV Code: Full Code Dispo: Admitted to hepatology s/p attempted TIPS Subjective/Interval History: No acute events overnight. The patient was examined at the bedside after she was down in the Interventional Radiology suite for her TIPS procedure. Discussed with the patient and her daughter that they were unsuccessful in regards to completing the TIPS. I discussed how we would come back tomorrow to discuss her case with the attending combine driver, what the next steps would be, and to answer any questions they may have. The patient denies any chest pain, shortness for breath, nausea, vomiting, diarrhea, fever, chills, or abdominal pain. Objective: Vitals: 08/29/231849 BP: 89/52 Pulse: 84 Resp: 16 Temp: 97.3 F (36.3 C) SpO2: 95% O2 Device: room air (08/29/231849) Flow (L/min): 0 (08/29/231643) Gen: NAD, tired appearing after her procedure HENT: NCAT, EOMI, MMM, no scleral icterus Cardio: RRR, normal S1/S2, no murmur Resp: CTA b/l, no increased WOB GI: soft, NT, ND, normal BS MSK: no joint swelling or erythema Ext: warm and well-perfused, 1+ lower extremity edema Neuro: alert and oriented, moving all four extremities Data Review: WBC/Hgb/Hct/Plts: 3.39/10.4/30.1/100 (08/29 308-08/29 1140) Na/K+/Phos/Mg/Ca: 142/4.0/--/1.8/7.9 (08/29 308-08/29 1215) Bun/Creat/Cl/CO2/Glucose: 16/0.48/110/24/73 (08/29 1215) Ptt/Pt/Inr: 45.6/20.3/1.8 (08/29 308) MELD 3.0: 17 at 08/29/2023 12:15 PM MELD-Na: 15 at 08/29/2023 12:15 PM Calculated from: Serum Creatinine: 0.48 mg/dL (Using min of 1 mg/dL) at 08/29/2023 12:15 PM Serum Sodium: 142 mmol/L (Using max of 137 mmol/L) at 08/29/2023 12:15 PM Total Bilirubin: 1.8 mg/dL at 08/29/2023 3:08 AM Serum Albumin: 2.6 g/dL at 08/29/2023 3:08 AM INR(ratio): 1.8 at 08/29/2023 3:08 AM Age at listing (hypothetical): 63 years Sex: Female at 08/29/2023 12:15 PM Discussed with team and attending, Dr. Hines, on rounds. Signed, Tk Contreras MD Associated attestation - Seth Hines MD, MPH - 08/29/2023 11:29 PM EDT ATTENDING STATEMENT: I have personally seen and examined this patient independently. All pertinent data has been reviewed. I agree with the resident's dictated impression and plan. Ms. Avalos has a history of decompensated MASH cirrhosis with refractory ascites. Admitted for planned for planned TIPS today. MELD 3.0 17. Focused Assessment for Discharge Planning Patient is here for planned TIPS procedure. Qualified sweeping compound blender was present as primary sweeping compound blender to interpret during the following: admission. The primary sweeping compound blender resource was qualified telephonic sweeping compound blender: ID # [id number] Initial Discharge Planning Anticipated discharge disposition: Home Transportation Available for Discharge: Family or Friend, Private Vehicle Anticipated DME: [facility]va Anticipated Services at Discharge: Outpatient follow up, Outpatient clinical services (ie: lab draws, transfusions, injectables) Patient Assessment Completed: Focused Advanced Care Planning Assessment Advanced Care Planning Has the patient completed Advance Directives?: Not Completed Referral to Social Work for Advance Care Planning? : Patient Declines HCPOA Agent(s): none Legal Next of Kin: Brent Stone [phone] 2. daughter Fara Neville [phone] Financial Resources Insurance: No Prescription Coverage: No Resources Needed: Yes Resources Provided: Social work consulted Living Environment and Support System Patient lives in a two story home with her . She stated she has been staying on the first floor. Patient Resources Prior to Admission Post-acute Services: no Community Resources: no DME: no PCP; Darlene Gar[facility]: [place] Patient's goal for discharge is home. Will continue to follow for discharge planning and care coordination. Nadira Mauricio RN, GROUND CONTROL APPROACH TECHNICIAN-S, ACM R 9 E Clinical Visual Display Manager Telephone # available in Treatment team. Also available via Secure Chat. documented in this encounter [facility] 08-30-2023 Nurse Note Handout in Latvian on cirrhosis/low salt diet given to patient and family prior to discharge today. Pt scheduled for hospital follow up with Annabel Goetz NP on 10/16/23. [facility] 08-30-2023 Miscellaneous Notes Handout in Latvian on cirrhosis/low salt diet given to patient and family prior to discharge today. Pt scheduled for hospital follow up with Annabel Goetz NP on 10/16/23. Problem: PT - Balance/Coordination/Neuro Re-Education Goal: Standing Dynamic/Static Balance Description: Pt will perform standing balance tasks for 15 minutes with independence with least restrictive assistive device in order to improve functional mobility and safety with standing tasks. Outcome: Ongoing Problem: PT - Mobility Goal: Ambulation Description: Pt will ambulate 250 feet with least restrictive device with independence to improve ability to navigate home environment. Outcome: Ongoing Goal: Stairs Description: Pt will ascend/descend full flight stairs with railings with independence with least restrictive device to improve ability to perform functional mobility necessary in recommended discharge environment. Outcome: Ongoing Problem: PT - Transfers Goal: Supine <-> Sit Description: Pt will perform bed mobility with flat bed & no rail with independence in order to improve functional mobility and safety. Outcome: Ongoing Goal: Sit <-> Stand Description: Pt will perform sit to/from stand transfers with independence with least restrictive device in order to improve functional mobility and safety. Outcome: Ongoing Goal: Strength/ROM Description: Pt will perform 3 sets of 10 repetitions of lower bilateral extremity exercises with independence in order to improve strength, maintain ROM, necessary for functional mobility. Outcome: Ongoing Problem: OT - ADLs Goal: Toileting Description: Pt will complete toileting task including clothing management with modified independence for improved ability to safely complete self-care activities. Outcome: Ongoing Problem: OT - Balance Goal: Balance - Standing Description: Pt will perform 10 minutes of functional ADL task in standing with modified independence and balance level of modified Independent to promote safety and improved balance required for self-care activities. Outcome: Ongoing Problem: OT - Endurance Goal: Endurance Functional Mobility to Bathroom Description: Pt will demonstrate safe functional mobility to/from restroom with modified independence and least restrictive device to access standard commode for improved ability to safely complete toileting. Outcome: Ongoing Problem: Patient Care Overview Goal: Plan of Care Review Outcome: Ongoing Goal: Individualization & Mutuality Outcome: Ongoing Problem: Liver Failure, Acute/Chronic (Adult) Goal: Signs and Symptoms of Listed Potential Problems Will be Absent, Minimized or Managed (Liver Failure, Acute/Chronic) Description: Signs and symptoms of listed potential problems will be absent, minimized or managed by discharge/transition of care (reference Liver Failure, Acute/Chronic (Adult) CPG). Outcome: Ongoing Problem: Liver Failure, Acute/Chronic (Adult) Intervention: Support/Optimize Psychosocial Response to Liver Disease Flowsheets (Taken 08/29/20231952) Supportive Measures: active listening utilized verbalization of feelings encouraged Problem: Patient Care Overview Goal: Plan of Care Review Outcome: Progressing Toward Goal Goal: Individualization & Mutuality Outcome: Progressing Toward Goal Goal: Discharge Needs Assessment Outcome: Progressing Toward Goal Goal: Interdisciplinary Rounds/Family Conf Outcome: Progressing Toward Goal Problem: Paracentesis, Abdominal (Adult) Goal: Signs and Symptoms of Listed Potential Problems Will be Absent, Minimized or Managed (Paracentesis, Abdominal) Description: Signs and symptoms of listed potential problems will be absent, minimized or managed by discharge/transition of care (reference Paracentesis, Abdominal (Adult) CPG). Outcome: Progressing Toward Goal Problem: Liver Failure, Acute/Chronic (Adult) Goal: Signs and Symptoms of Listed Potential Problems Will be Absent, Minimized or Managed (Liver Failure, Acute/Chronic) Description: Signs and symptoms of listed potential problems will be absent, minimized or managed by discharge/transition of care (reference Liver Failure, Acute/Chronic (Adult) CPG). Outcome: Progressing Toward Goal Interventional Radiology TIPSS procedure and paracentesis completed by IR Attending Deonte and Dr Trent with General Anesthesia. Please see anesthesia charting under chart review for medication administration and vital signs throughout procedure. Right internal jugular venous access sheath site with D/I dressing. Pt to travel to PACU+ post procedure. Initial Pressures obtained by MD are as follows: Right Atrium: 7 Portal: 24 Gradient: 17 Hemostasis right groin at 1304 Flat bedrest until 1504 6600 mL of clear yellow ascites removed during paracentesis. Problem: Patient Care Overview Goal: Plan of Care Review Outcome: Ongoing Goal: Individualization & Mutuality Outcome: Ongoing Goal: Discharge Needs Assessment Outcome: Ongoing Goal: Interdisciplinary Rounds/Family Conf Outcome: Ongoing I certify that this patient requires inpatient services at this time. I anticipate the expected length of stay will include at least two midnights. Inpatient services are due to the following medical concerns TIPS. Plans for post hospitalization care will be discharge to home. Madhavi Avalos was admitted to [facility] from home. The patient reported all personal belongings accounted for at the time of admission. They will assume responsibility for all personal belongings kept at bedside. The patient's fall risk was assessed, necessary interventions were implemented, and the fall tool was updated. A head to toe assessment completed. Please see the flowsheet for further assessment. A dual RN initial assessment of skin condition was performed by Merle Linares RN and Dennis Ware RN. Skin Assessment: Skin within defined limits:Yes LDA Added:No Dr. Contreras notified of the patient's arrival. Patient arrived from home with family member. Dr. Contreras notified of arrival. 08/28/2023 Notified room Ready @ 11:16 AM spoke to pt, will arrive to admitting @ now, pt is parking the car documented in this encounter [facility] 08-30-2023 Hospital Discharg e instructions Tk Contreras MD - 08/30/2023 2:18 PM EDT You were admitted to the hospital for: - a TIPS procedure. The Transjugular Intrahepatic Portosystemic Shunt (TIPS) procedure is a medical intervention used to relieve high blood pressure in the portal vein by creating a shunt between the portal vein and the hepatic vein, often to manage complications of cirrhosis. Treatment in the hospital: - The TIPS procedure was attempted but was unsuccessful. This procedure was not done during your hospitalization. Please continue to take your diuretics as listed below. Treatment at home: - Increase your midodrine to 15 mg three times daily. This is three tablets at a time, three times a day. Hold midodrine for systolic blood pressures greater than 140. - Stop taking furosemide, also known as Lasix. - Start taking Torsemide 20 mg twice a day. Torsemide is a diuretic medication used to treat conditions like edema and high blood pressure by increasing urine production and reducing excess fluid in the body.Common side effects of Torsemide may include excessive urination, low potassium levels, dizziness, and muscle cramps. - We provided you prescriptions for the midodrine and torsemide while you were here. Please note that you should obtain refills from [facility] using GoodRx coupons to get these medications at a discounted barn[place] without insurance. - Follow up with the liver team as scheduled on 10/16/2023 at 11:30 AM. - Follow up with your primary care provider in 7-10 days for a post-hospitalization follow up visit . - Continue to take your other home medications as you were at home. When returning home from the hospital, it's important to take certain precautions to ensure a smooth and safe transition. Carefully adhere to the healthcare provider's recommendations, including medication schedules, dietary restrictions, and activity limitations. Make sure you understand your treatment plan and any potential side effects or warning signs to watch for. Enlist the help of family members, friends, or caregivers to assist with daily tasks and transportation to follow-up appointments. Ensure you have a reliable support system in place for your recovery. Keep a close eye on your symptoms and report any unusual changes or complications to your healthcare provider promptly. It's essential to attend all scheduled follow-up appointments to track your progress and address any concerns. Call your primary doctor if: - You have sustained fever over 100.4 F. - You have shaking chills. - You have uncontrolled nausea, vomiting, or diarrhea. - You have watery diarrhea, stomach cramps, or nausea that doesn't go away. - You have questions about which medications you should be taking. - You have any other symptoms concerning to you. Call 911 or go to your local emergency room if: - You have chest pain or irregular feelings in your chest - You feel like you can t catch your breath - You have loss of consciousness, confusion, or concern for seizures. - You feel confused or very sleepy. - You have new numbness or weakness on one side of your body. - You faint or pass out without even knowing it s about to happen. - For any other life threatening emergencies. - You have a concern and cannot reach your doctor. The following attachments cannot be sent through Care Everywhere.Torsemide Oral Tablet (TORSEMIDE - ORAL) (Latvian)documented in this encounter [facility] 08-30-2023 Hospital course Narrative Discharge Summary Name: Madhavi Avalos Age: 63 y.o. 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 As you may know, Madhavi Avalos is a 63 y.o. female with a history of decompensated MASH cirrhosis c/b refractory ascites despite diuretics and weekly paracentesis, EV s/p EBL. Admitted for a planned TIPS on 08/29/2023. The following describes her hospital course. MASH Cirrhosis S/p attempted TIPS procedure which was ultimately aborted as described below Meld at discharge: MELD 3.0: 16 at 08/30/2023 3:25 AM MELD-Na: 16 at 08/30/2023 3:25 AM Calculated from: Serum Creatinine: 0.65 mg/dL (Using min of 1 mg/dL) at 08/30/2023 3:25 AM Serum Sodium: 138 mmol/L (Using max of 137 mmol/L) at 08/30/2023 3:25 AM Total Bilirubin: 2.2 mg/dL at 08/30/2023 3:25 AM Serum Albumin: 3.5 g/dL at 08/30/2023 3:25 AM INR(ratio): 1.8 at 08/29/2023 3:08 AM Age at listing (hypothetical): 63 years Sex: Female at 08/30/2023 3:25 AM Ascites: Held home lasix 120 mg daily and aldactone 300 mg daily at admission prior to TIPS. Discharged on Torsemide 20 mg BID and discontinued Lasix at discharge. Recommend adherence to a strict 2 gram, low sodium diet. EV: 10/2022 EGD with large EVs s/p EBL. Repeat EGD scheduled 09/11/2023. TIPS unsuccessful. HE: Alert and oriented today. Engaging in conversation. Hx of HE. Continue lactulose, titrate to 3-4 BMs/day HCC: 06/2023 CT A/P without focal liver lesion. A TIPS procedure was attempted by interventional radiology. As part of this procedure, US-guided paracentesis was performed with removal of 6200 mL. TIPS was attempted via the right femoral and right jugular vein. However, due to patient's anatomy, size of the liver, length of the right hepatic vein and the angle between the right atrium, IVC and right hepatic vein, it was not possible to advance the sheath into the right hepatic vein. The right hepatic vein was accessed multiple times with the wire and catheter however, the sheath was not able to advance safely into the right hepatic vein. After numerous failed attempts, decision was made to abort the procedure. Other medication changes during this patients hospitalization was an increase in the patient's home midodrine to 15 mg three times daily (hold for SBP > 140). The patient had some episodes of hypotension during her stay. This was managed with midodrine and albumin resuscitation. Overall the patient's hospital course was uncomplicated. The patient was discharged home with her daughter in a personal vehicle and instructed to follow up with her primary care provider within 7-10 days for a post hospitalization follow-up visit. The patient was also instructed to follow up with the hepatology nurse practitioner. She is scheduled for a follow up on 10/16/2023 at 11:30 a.m.. All questions were answered prior to discharge. The patient was discharged from the hospital in stable condition and tolerating a very low sodium liver diet. Physical Exam on the Date of Discharge: Vitals: 08/30/23 1344 BP: 95/52 Pulse: 65 Resp: 16 Temp: 97.4 F (36.3 C) SpO2: 97% Wt Readings from Last 1 Encounters: 08/28/23 79 kg (174 lb 1.6 oz) Gen: well appearing, non toxic, no acute distress HEENT: PERRL, sclerae anicteric, conjunctivae clear Pulm: no increased work of breathing, clear to auscultation bilaterally CV: regular rate and rhythm, normal s1 and s2, no murmurs/rubs/gallops Abd: non tender, distended, no rebound or guarding, normoactive bowel sounds Ext: warm and well perfused, mild edema Neuro: Alert and oriented, CN II-XII grossly intact, tone normal and symmetric Skin: no rashes or ecchymoses Psych: affect full, mood euthymic, no overt psychosis At the time of discharge the patient's mental status was at baseline. Diet was DIET LIVER - VERY LOW SODIUM Upon discharge the patient's code status full code It has been my pleasure participating in this patient's care. Please contact me with any questions or concerns regarding her hospital stay. Sincerely, Tk Contreras MD Dictated under attending physician No att. providers found Division of Hospital Medicine p: [phone] f: [phone] CONSULTS DURING ADMISSION: IP CONSULT TO PHYSICAL THERAPY IP CONSULT TO OCCUPATIONAL THERAPY IP CONSULT TO PHARMACY MEDICATION ASSISTANCE IP CONSULT TO PHARMACY BEDSIDE DISCHARGE MED DELIVERY IMAGING / PROCEDURES / RESULTS: PERCUTANEOUS TRANSHEPATIC PORTAL VEIN-IP ONLY ABDOMINAL PARACENTESIS Should you require further information or copies of results or reports please contact Medical Information Management @ [phone] LABS AT TIME OF DISCHARGE: Lab Results Component Value Date SODIUM 138 08/30/2023 POTASSIUM 4.0 08/30/2023 POTASSIUM 6.3 (HH) 08/29/2023 MAGNESIUM 1.8 08/30/2023 BUN 20 08/30/2023 CREATSERUM 0.65 08/30/2023 CREATSERUM 0.49 (L) 07/05/2023 Lab Results Component Value Date WBC 3.27 (L) 08/30/2023 HGB 9.4 (L) 08/30/2023 PLATELET 62 (L) 08/30/2023 INR 1.8 (H) 08/29/2023 No results found for: HGBA1C RESULTS / STUDIES PENDING AT DISCHARGE: None FURTHER RECOMMENDATIONS: - Follow up with primary care provider within 7-10 days following hospitalization for post hospitalization follow-up visit - Follow up with liver nurse practitioner on 10/16/2023 at 11:30 a.m. - Follow up with liver doctor on 01/02/2024 at 10:30 a.m. - Patient discharged on midodrine 15 mg 3 times daily - Patient discharged on torsemide 20 mg twice daily - Patient instructed to follow up with the liver team for refills of his medications, patient was instructed to call office in order to obtain refills prior to her visit and the patient was directed to go to [email or web address] for discounted medications PATIENT'S MEDICAL HOME AT DISCHARGE: Darlene Gar[facility] [address] [place] / [place] [id number] MEDICATIONS: Medication List for when you go home START taking these medications Torsemide 20 MG TABS Antione 1 comprimido por boca 2 veces al d a (antione antes de las comidas). (Take 1 tablet by mouth 2 times daily (take before meals).) Commonly known as: DEMADEX CHANGE how you take these medications midodrine 5 MG TABS Antione 3 comprimidos por boca 3 veces al d a. (Take 3 tablets by mouth 3 times daily.) Commonly known as: ProAmatine What changed: The strength you have reported taking of this medication has changed The quantity you have reported taking of this medication has changed CONTINUE taking these medications Lactulose 10 GM/15ML SOLN oral solution Take 30 mL by mouth 2 times daily. Commonly known as: CHRONULAC Ondansetron 4 MG TABS Take 1 tablet by mouth every 12 hours. Commonly known as: ZOFRAN OXYCODONE-ACETAMINOPHEN PO Take 5 capsules by mouth daily. PROMETHAZINE-CODEINE PO Take by mouth. 5 to 10 ml q6hr Spironolactone 100 MG TABS Take 3 tablets by mouth daily. Commonly known as: ALDACTONE For diagnoses: Decompensated hepatic cirrhosis STOP taking these medications furOSEmide 40 MG TABS Commonly known as: LASIX Follow-up: No follow-up provider specified. Upcoming Appointments (up to five)-Some appointments for Medical Center outpatient clinics or diagnostic testing locations are not displayed below Provider Department Dept Phone 09/11/2023 1:00 PM Ken Garcia [facility] Arrive at: Arrive to [facility]patient [facility] Registration [phone] 10/16/2023 11:30 AM Annabel Goetz [facility] [place] Arrive at: Arrive to 1st Floor Registration [phone] 01/02/2024 10:30 AM Randal Vital [facility] [place] Arrive at: Arrive to 1st Floor Registration [phone] Associated attestation - Seth Hines MD, MPH - 08/30/2023 9:44 PM EDT ATTENDING STATEMENT: I have personally seen and examined this patient independently. All pertinent data has been reviewed. I agree with the resident's dictated discharge summary. Ms. Jamin Avalos has a history of decompensated HARRISON cirrhosis, admitted for elective TIPS for refractory ascites. Per IR note: Attempted TIPS. However, due to patient's anatomy, size of the liver, length of the right hepatic vein and the angle between the right atrium, IVC and right hepatic vein, it was not possible to advance the sheath into the right hepatic vein. 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 Diuretics adjusted as follows: Lasix discontinued and started on torsemide 20mg bid. Home Aldactone continued. Midodrine increased to 15mg tid from 10mg tid to assist with hypotension. MELD 3.0 16. documented in this encounter [facility] 08-30-2023 Plan of care note Problem: PT - Balance/Coordination/Neuro Re-Education Goal: Standing Dynamic/Static Balance Description: Pt will perform standing balance tasks for 15 minutes with independence with least restrictive assistive device in order to improve functional mobility and safety with standing tasks. Outcome: Ongoing Problem: PT - Mobility Goal: Ambulation Description: Pt will ambulate 250 feet with least restrictive device with independence to improve ability to navigate home environment. Outcome: Ongoing Goal: Stairs Description: Pt will ascend/descend full flight stairs with railings with independence with least restrictive device to improve ability to perform functional mobility necessary in recommended discharge environment. Outcome: Ongoing Problem: PT - Transfers Goal: Supine <-> Sit Description: Pt will perform bed mobility with flat bed & no rail with independence in order to improve functional mobility and safety. Outcome: Ongoing Goal: Sit <-> Stand Description: Pt will perform sit to/from stand transfers with independence with least restrictive device in order to improve functional mobility and safety. Outcome: Ongoing Goal: Strength/ROM Description: Pt will perform 3 sets of 10 repetitions of lower bilateral extremity exercises with independence in order to improve strength, maintain ROM, necessary for functional mobility. Outcome: Ongoing [facility] 08-30-2023 Plan of care note Problem: OT - ADLs Goal: Toileting Description: Pt will complete toileting task including clothing management with modified independence for improved ability to safely complete self-care activities. Outcome: Ongoing Problem: OT - Balance Goal: Balance - Standing Description: Pt will perform 10 minutes of functional ADL task in standing with modified independence and balance level of modified Independent to promote safety and improved balance required for self-care activities. Outcome: Ongoing Problem: OT - Endurance Goal: Endurance Functional Mobility to Bathroom Description: Pt will demonstrate safe functional mobility to/from restroom with modified independence and least restrictive device to access standard commode for improved ability to safely complete toileting. Outcome: Ongoing T [facility] 08-30-2023 Plan of care note Problem: Patient Care Overview Goal: Plan of Care Review Outcome: Ongoing Goal: Individualization & Mutuality Outcome: Ongoing Problem: Liver Failure, Acute/Chronic (Adult) Goal: Signs and Symptoms of Listed Potential Problems Will be Absent, Minimized or Managed (Liver Failure, Acute/Chronic) Description: Signs and symptoms of listed potential problems will be absent, minimized or managed by discharge/transition of care (reference Liver Failure, Acute/Chronic (Adult) CPG). Outcome: Ongoing Problem: Liver Failure, Acute/Chronic (Adult) Intervention: Support/Optimize Psychosocial Response to Liver Disease Flowsheets (Taken 08/29/20231952) Supportive Measures: active listening utilized verbalization of feelings encouraged [facility] 08-29-2023 Plan of care note Problem: Patient Care Overview Goal: Plan of Care Review Outcome: Progressing Toward Goal Goal: Individualization & Mutuality Outcome: Progressing Toward Goal Goal: Discharge Needs Assessment Outcome: Progressing Toward Goal Goal: Interdisciplinary Rounds/Family Conf Outcome: Progressing Toward Goal Problem: Paracentesis, Abdominal (Adult) Goal: Signs and Symptoms of Listed Potential Problems Will be Absent, Minimized or Managed (Paracentesis, Abdominal) Description: Signs and symptoms of listed potential problems will be absent, minimized or managed by discharge/transition of care (reference Paracentesis, Abdominal (Adult) CPG). Outcome: Progressing Toward Goal Problem: Liver Failure, Acute/Chronic (Adult) Goal: Signs and Symptoms of Listed Potential Problems Will be Absent, Minimized or Managed (Liver Failure, Acute/Chronic) Description: Signs and symptoms of listed potential problems will be absent, minimized or managed by discharge/transition of care (reference Liver Failure, Acute/Chronic (Adult) CPG). Outcome: Progressing Toward Goal [facility] 08-29-2023 Note Amber Manuel MD 3:32 PM VASCULAR INTERVENTIONAL RADIOLOGY PROCEDURE NOTE PROCEDURE INDICATION: 63 year-old woman with cirrhosis and recurrent ascites PROCEDURE PERFORMED: US-guided paracentesis with removal of 6200 mL US-guided access of the right femoral vein US-guided access of the right jugular vein Pressure measurements as detailed below. Attempted TIPS. However, due to patient's anatomy, size of the liver, length of the right hepatic vein and the angle between the right atrium, IVC and right hepatic vein, it was not possible to advance the sheath into the right hepatic vein. The right hepatic vein was accessed multiple times with the wire and catheter however, the sheath was not able to advance safely into the right hepatic vein. After numerous failed attempts, decision was made to abort the procedure. FINDINGS: Wedge: 24 RA: 7 Gradient: 17 PLAN: Continue paracentesis as needed for recurrent ascites. Toma Trent DO Interventional Radiology, PGY-6 Toma Trent DO 08/29/2023 1:28 PM COMMUNITY SERVICES COORDINATOR(S): Amber Manuel MD (Attending); Toma Trent DO (Resident) CONSENT: Informed consent was obtained prior to the procedure after discussion of the risks, benefits, and alternatives of the procedure, and expected procedure outcomes were discussed with the patient and/or outbound sales representative. The consent document was placed in chart. DID THIS PROCEDURE REQUIRE A UNIVERSAL PROTOCOL?: Yes. [place] Protocol is required. Preprocedure verification is complete. Patient verified and consents confirmed, procedure sites identified and marked as appropriate, timeout called before the start of the procedure. SPECIMEN(S) REMOVED: N/A DISPOSITION OF SPECIMEN(S): N/A ESTIMATED BLOOD LOSS: Less than 5 mL COMPLICATIONS: None immediate ADDITIONAL: Please refer to the report generated in the IMAGING section of the electronic medical record for additional procedure details. Thank you for allowing Interventional Radiology to participate in this patient's care. [facility] 08-29-2023 Nurse Note Interventional Radiology TIPSS procedure and paracentesis completed by IR Attending Deonte and Dr Trent with General Anesthesia. Please see anesthesia charting under chart review for medication administration and vital signs throughout procedure. Right internal jugular venous access sheath site with D/I dressing. Pt to travel to PACU+ post procedure. Initial Pressures obtained by MD are as follows: Right Atrium: 7 Portal: 24 Gradient: 17 Hemostasis right groin at 1304 Flat bedrest until 1504 6600 mL of clear yellow ascites removed during paracentesis. [facility] 08-28-2023 Plan of care note Problem: Patient Care Overview Goal: Plan of Care Review Outcome: Ongoing Goal: Individualization & Mutuality Outcome: Ongoing Goal: Discharge Needs Assessment Outcome: Ongoing Goal: Interdisciplinary Rounds/Family Conf Outcome: Ongoing [facility] 08-28-2023 Progress note Formatting of t his note might be different from the original. I certify that this patient requires inpatient services at this time. I anticipate the expected length of stay will include at least two midnights. Inpatient services are due to the following medical concerns TIPS. Plans for post hospitalization care will be discharge to home. [facility] 08-28-2023 History and physical note Internal Medicine Admission History & Physical Patient: Madhavi Neville Robbie, 1960, [id number] Physician: Tk Contreras MD, PGY1, Hepatology Service Date of face to face patient encounter: 08/28/2023. Chief Complaint: Planned Admission for TIPS History Of Present Illness: Madhavi Avalos is a 63 y.o. female with a history of decompensated [facility] cirrhosis c/b refractory ascites despite diuretics and weekly paracentesis and EV s/p EBL who presented for a scheduled TIPS procedure. She was initially diagnosed with cirrhosis 2020 after she presented to OSH with hematemesis and was noted to have volume overload and ascites. Underwent EGD at that time and was found to have EV, for which she underwent EBL. Since then, her ascites has been difficult to control despite diuretics and weekly large volume paracentesis. Referred for TIPS. Admitted to the hospital for scheduled TIPS on 08/29/2023. Of note her last paracentesis was on 08/23/2023 and 6 L of fluid was removed. Overall she is doing well. She does endorse some abdominal distention and discomfort associated with this distention. She also notes some abdominal pain originating near her umbilical hernia. The patient has been having 4-5 bowel movements daily. She is on lactulose. She does not have any recent hospitalizations. The patient denies any chest pain, shortness of breath, nausea, vomiting, fever, chills, cough, melena, hematochezia, or hematemesis. Primary Lithograph Designer Dr. Vital Etiology of Liver Disease [facility] cirrhosis MELD MELD 3.0: 14 at 08/28/2023 12:25 PM MELD-Na: 13 at 08/28/2023 12:25 PM Calculated from: Serum Creatinine: 0.63 mg/dL (Using min of 1 mg/dL) at 08/28/2023 12:25 PM Serum Sodium: 138 mmol/L (Using max of 137 mmol/L) at 08/28/2023 12:25 PM Total Bilirubin: 1.9 mg/dL at 08/28/2023 12:25 PM Serum Albumin: 3.4 g/dL at 08/28/2023 12:25 PM INR(ratio): 1.4 at 08/28/2023 12:25 PM Age at listing (hypothetical): 63 years Sex: Female at 08/28/2023 12:25 PM Last EGD/varices EV S/P banding 10/2022. Scheduled for repeat EGD in August. Last Imaging CT abdomen and pelvis in 06/2023 showed cirrhosis with stigmata of portal hypertension, including splenomegaly, large ascites, and portosystemic collaterals, no mass Last Paracentesis 08/23/2023, 6 L of ascites removed History of HE Prior hx of HE History of SBP No known history Medical/Surgical History: Past Medical History: Diagnosis Date Abdominal wall hernia Liver disease [facility] cirrhosis Obesity TB (tuberculosis) 01/2023 Completed treated for 3 months Past Surgical History: Procedure Laterality Date ESOPHAGOSCOPY W/ LIGATION BAND ESOPHAGEAL VARICES 10/2022 CHOLECYSTECTOMY 2021 Social History: she reports that she has never smoked. She has never used smokeless tobacco. She reports that she does not drink alcohol and does not use drugs. Family History: No relevant family history Medications: Prior to Admission Medications Prescriptions Lactulose 10 GM/15ML Solution oral solution Sig: Take 30 mL by mouth 2 times daily. Midodrine HCl 10 MG tablet Sig: Take 1 tablet by mouth 3 times daily. OXYCODONE-ACETAMINOPHEN PO Sig: Take 5 capsules by mouth daily. Ondansetron 4 MG tablet Sig: Take 1 tablet by mouth every 12 hours. PROMETHAZINE-CODEINE PO Sig: Take by mouth. 5 to 10 ml q6hr Spironolactone 100 MG tablet Sig: Take 3 tablets by mouth daily. furOSEmide 40 MG tablet Sig: Take 3 tablets by mouth daily. Facility-Administered Medications: None Allergies: No Known Allergies Review of Systems: Review of Systems Constitutional: Negative for activity change, appetite change, chills, diaphoresis, fatigue, fever and unexpected weight change. HENT: Negative for congestion, drooling, ear discharge, ear pain, facial swelling, hearing loss, nosebleeds, rhinorrhea, sinus pressure, sinus pain, sneezing and sore throat. Eyes: Negative for photophobia, pain, discharge, redness, itching and visual disturbance. Respiratory: Negative for cough, choking, chest tightness and shortness of breath. Cardiovascular: Positive for leg swelling. Negative for chest pain and palpitations. Gastrointestinal: Positive for abdominal distention and abdominal pain. Negative for anal bleeding, blood in stool, constipation, diarrhea, nausea, rectal pain and vomiting. Endocrine: Negative for polydipsia, polyphagia and polyuria. Genitourinary: Negative for difficulty urinating, dysuria, enuresis, flank pain, frequency, hematuria and urgency. Musculoskeletal: Negative for arthralgias, back pain, gait problem, joint swelling, myalgias, neck pain and neck stiffness. Skin: Negative for rash and wound. Neurological: Negative for dizziness, tremors, syncope, facial asymmetry, weakness, light-headedness, numbness and headaches. Hematological: Does not bruise/bleed easily. Psychiatric/Behavioral: Negative for agitation and confusion. Physical Exam: Vitals: 08/28/23 1334 BP: 102/56 Pulse: 84 Resp: 16 Temp: 98.1 F (36.7 C) SpO2: 100% O2 Device: room air (08/28/23 1334) Gen: Alert, Awake, NAD Eyes: PERRLA, EOMI, no icterus ENT: MMM, trachea midline Resp: CTA & P, normal respiratory effort Cardio: RRR, normal S1, S2, no M/R/G. 1+ LLE. GI: Soft, NABS, distended, nontender MSK: No joint effusions or erythema Skin: No jaundice or rash Neuro: family practice md 3-7, 9-11 intact and equal. Strength grossly equal in muscle groups of the bilateral UEs and LEs. Psych: Appropriate affect and cognition Data Review: WBC/Hgb/Hct/Plts: 4.67/12.7/39.1/118 (08/28 1225) Na/K+/Phos/Mg/Ca: 138/5.0/2.9/1.9/8.1 (08/28 1225) Bun/Creat/Cl/CO2/Glucose: 18/0.63/106/25/91 (08/28 1225) Ptt/Pt/Inr: 40.6/17.3/1.4 (08/28 1225) Impression/Plan: Madhavi Avalos is a 63 y.o. female with a history of decompensated [facility] cirrhosis c/b refractory ascites despite diuretics and weekly paracentesis, EV s/p EBL. Admitted for a planned TIPS on 08/29/2023. MASH Cirrhosis MELD 3.0: 14 at 08/28/2023 12:25 PM MELD-Na: 13 at 08/28/2023 12:25 PM Calculated from: Serum Creatinine: 0.63 mg/dL (Using min of 1 mg/dL) at 08/28/2023 12:25 PM Serum Sodium: 138 mmol/L (Using max of 137 mmol/L) at 08/28/2023 12:25 PM Total Bilirubin: 1.9 mg/dL at 08/28/2023 12:25 PM Serum Albumin: 3.4 g/dL at 08/28/2023 12:25 PM INR(ratio): 1.4 at 08/28/2023 12:25 PM Age at listing (hypothetical): 63 years Sex: Female at 08/28/2023 12:25 PM Ascites: Hold lasix 120 mg daily and aldactone 300 mg daily. Recommend adherence to a strict 2 gram, low sodium diet. EV: 10/2022 EGD with large EVs s/p EBL. Repeat EGD scheduled 09/11/2023. Scheduled TIPS as discussed. HE: Alert and oriented today. Engaging in conversation. Hx of HE. Continue lactulose, titrate to 3-4 BMs/day HCC: 06/2023 CT A/P without focal liver lesion. - Will order TIPS Ultrasound 3 days after procedure DVT prophylaxis with SCDs Disposition: Admitted for planned TIPS Code status is FULL Staffed with Dr. Hines Signed, Tk Contreras MD Internal Medicine PGY1 Associated attestation - Seth Hines MD, MPH - 08/28/2023 9:09 PM EDT ATTENDING ATTESTATION: I have personally seen, assessed, and independently examined the patient, including review of pertinent labs and related data. I have discussed the care with Housestaff and was instrumental in the development of the assessment and plan. I agree with the note as written below with the following highlights/additions: Liver cirrhosis decompensated with Ascites, Portal Hypertension, Coagulopathy, and Thrombocytopenia, Varices. Ms. Avalos has a history of decompensated [facility] cirrhosis with refractory ascites admitted for planned TIPS. CT abdomen and ECHO findings reviewed; of note RSVP was unable to be estimated on ECHO. TIPS planned for 08/29/23. MELD 3.0 14. [facility] 08-28-2023 History and physical note Internal Medicine Admission History & Physical Patient: Madhavi Avalos, 1960, [id number] Physician: Tk Contreras MD, PGY1, Hepatology Service Date of face to face patient encounter: 08/28/2023. Chief Complaint: Planned Admission for TIPS History Of Present Illness: Madhavi Avalos is a 63 y.o. female with a history of decompensated [facility] cirrhosis c/b refractory ascites despite diuretics and weekly paracentesis and EV s/p EBL who presented for a scheduled TIPS procedure. She was initially diagnosed with cirrhosis 2020 after she presented to OSH with hematemesis and was noted to have volume overload and ascites. Underwent EGD at that time and was found to have EV, for which she underwent EBL. Since then, her ascites has been difficult to control despite diuretics and weekly large volume paracentesis. Referred for TIPS. Admitted to the hospital for scheduled TIPS on 08/29/2023. Of note her last paracentesis was on 08/23/2023 and 6 L of fluid was removed. Overall she is doing well. She does endorse some abdominal distention and discomfort associated with this distention. She also notes some abdominal pain originating near her umbilical hernia. The patient has been having 4-5 bowel movements daily. She is on lactulose. She does not have any recent hospitalizations. The patient denies any chest pain, shortness of breath, nausea, vomiting, fever, chills, cough, melena, hematochezia, or hematemesis. Primary Lithograph Designer Dr. Vital Etiology of Liver Disease [facility] cirrhosis MELD MELD 3.0: 14 at 08/28/2023 12:25 PM MELD-Na: 13 at 08/28/2023 12:25 PM Calculated from: Serum Creatinine: 0.63 mg/dL (Using min of 1 mg/dL) at 08/28/2023 12:25 PM Serum Sodium: 138 mmol/L (Using max of 137 mmol/L) at 08/28/2023 12:25 PM Total Bilirubin: 1.9 mg/dL at 08/28/2023 12:25 PM Serum Albumin: 3.4 g/dL at 08/28/2023 12:25 PM INR(ratio): 1.4 at 08/28/2023 12:25 PM Age at listing (hypothetical): 63 years Sex: Female at 08/28/2023 12:25 PM Last EGD/varices EV S/P banding 10/2022. Scheduled for repeat EGD in August. Last Imaging CT abdomen and pelvis in 06/2023 showed cirrhosis with stigmata of portal hypertension, including splenomegaly, large ascites, and portosystemic collaterals, no mass Last Paracentesis 08/23/2023, 6 L of ascites removed History of HE Prior hx of HE History of SBP No known history Medical/Surgical History: Past Medical History: Diagnosis Date Abdominal wall hernia Liver disease [facility] cirrhosis Obesity TB (tuberculosis) 01/2023 Completed treated for 3 months Past Surgical History: Procedure Laterality Date ESOPHAGOSCOPY W/ LIGATION BAND ESOPHAGEAL VARICES 10/2022 CHOLECYSTECTOMY 2021 Social History: she reports that she has never smoked. She has never used smokeless tobacco. She reports that she does not drink alcohol and does not use drugs. Family History: No relevant family history Medications: Prior to Admission Medications Prescriptions Lactulose 10 GM/15ML Solution oral solution Sig: Take 30 mL by mouth 2 times daily. Midodrine HCl 10 MG tablet Sig: Take 1 tablet by mouth 3 times daily. OXYCODONE-ACETAMINOPHEN PO Sig: Take 5 capsules by mouth daily. Ondansetron 4 MG tablet Sig: Take 1 tablet by mouth every 12 hours. PROMETHAZINE-CODEINE PO Sig: Take by mouth. 5 to 10 ml q6hr Spironolactone 100 MG tablet Sig: Take 3 tablets by mouth daily. furOSEmide 40 MG tablet Sig: Take 3 tablets by mouth daily. Facility-Administered Medications: None Allergies: No Known Allergies Review of Systems: Review of Systems Constitutional: Negative for activity change, appetite change, chills, diaphoresis, fatigue, fever and unexpected weight change. HENT: Negative for congestion, drooling, ear discharge, ear pain, facial swelling, hearing loss, nosebleeds, rhinorrhea, sinus pressure, sinus pain, sneezing and sore throat. Eyes: Negative for photophobia, pain, discharge, redness, itching and visual disturbance. Respiratory: Negative for cough, choking, chest tightness and shortness of breath. Cardiovascular: Positive for leg swelling. Negative for chest pain and palpitations. Gastrointestinal: Positive for abdominal distention and abdominal pain. Negative for anal bleeding, blood in stool, constipation, diarrhea, nausea, rectal pain and vomiting. Endocrine: Negative for polydipsia, polyphagia and polyuria. Genitourinary: Negative for difficulty urinating, dysuria, enuresis, flank pain, frequency, hematuria and urgency. Musculoskeletal: Negative for arthralgias, back pain, gait problem, joint swelling, myalgias, neck pain and neck stiffness. Skin: Negative for rash and wound. Neurological: Negative for dizziness, tremors, syncope, facial asymmetry, weakness, light-headedness, numbness and headaches. Hematological: Does not bruise/bleed easily. Psychiatric/Behavioral: Negative for agitation and confusion. Physical Exam: Vitals: 08/28/23 1334 BP: 102/56 Pulse: 84 Resp: 16 Temp: 98.1 F (36.7 C) SpO2: 100% O2 Device: room air (08/28/23 133) Gen: Alert, Awake, NAD Eyes: PERRLA, EOMI, no icterus ENT: MMM, trachea midline Resp: CTA & P, normal respiratory effort Cardio: RRR, normal S1, S2, no M/R/G. 1+ LLE. GI: Soft, NABS, distended, nontender MSK: No joint effusions or erythema Skin: No jaundice or rash Neuro: family practice md 3-7, 9-11 intact and equal. Strength grossly equal in muscle groups of the bilateral UEs and LEs. Psych: Appropriate affect and cognition Data Review: WBC/Hgb/Hct/Plts: 4.67/12.7/39.1/118 (08/28 1225) Na/K+/Phos/Mg/Ca: 138/5.0/2.9/1.9/8.1 (08/28 1225) Bun/Creat/Cl/CO2/Glucose: 18/0.63/106/25/91 (08/28 1225) Ptt/Pt/Inr: 40.6/17.3/1.4 (08/28 1225) Impression/Plan: Madhavi Avalos is a 63 y.o. female with a history of decompensated [facility] cirrhosis c/b refractory ascites despite diuretics and weekly paracentesis, EV s/p EBL. Admitted for a planned TIPS on 08/29/2023. MASH Cirrhosis MELD 3.0: 14 at 08/28/2023 12:25 PM MELD-Na: 13 at 08/28/2023 12:25 PM Calculated from: Serum Creatinine: 0.63 mg/dL (Using min of 1 mg/dL) at 08/28/2023 12:25 PM Serum Sodium: 138 mmol/L (Using max of 137 mmol/L) at 08/28/2023 12:25 PM Total Bilirubin: 1.9 mg/dL at 08/28/2023 12:25 PM Serum Albumin: 3.4 g/dL at 08/28/2023 12:25 PM INR(ratio): 1.4 at 08/28/2023 12:25 PM Age at listing (hypothetical): 63 years Sex: Female at 08/28/2023 12:25 PM Ascites: Hold lasix 120 mg daily and aldactone 300 mg daily. Recommend adherence to a strict 2 gram, low sodium diet. EV: 10/2022 EGD with large EVs s/p EBL. Repeat EGD scheduled 09/11/2023. Scheduled TIPS as discussed. HE: Alert and oriented today. Engaging in conversation. Hx of HE. Continue lactulose, titrate to 3-4 BMs/day HCC: 06/2023 CT A/P without focal liver lesion. - Will order TIPS Ultrasound 3 days after procedure DVT prophylaxis with SCDs Disposition: Admitted for planned TIPS Code status is FULL Staffed with Dr. Hines Signed, Tk Contreras MD Internal Medicine PGY1 Associated attestation - Seth Hines MD, MPH - 08/28/2023 9:09 PM EDT ATTENDING ATTESTATION: I have personally seen, assessed, and independently examined the patient, including review of pertinent labs and related data. I have discussed the care with Housestaff and was instrumental in the development of the assessment and plan. I agree with the note as written below with the following highlights/additions: Liver cirrhosis decompensated with Ascites, Portal Hypertension, Coagulopathy, and Thrombocytopenia, Varices. Ms. Avalos has a history of decompensated [facility] cirrhosis with refractory ascites admitted for planned TIPS. CT abdomen and ECHO findings reviewed; of note RSVP was unable to be estimated on ECHO. TIPS planned for 08/29/23. MELD 3.0 14. documented in this encounter [facility] 08-28-2023 Nurse Note Madhavi Avalos was admitted to [facility] from home. The patient reported all personal belongings accounted for at the time of admission. They will assume responsibility for all personal belongings kept at bedside. The patient's fall risk was assessed, necessary interventions were implemented, and the fall tool was updated. A head to toe assessment completed. Please see the flowsheet for further assessment. A dual RN initial assessment of skin condition was performed by Merle Linares RN and Dennis Ware RN. Skin Assessment: Skin within defined limits:Yes LDA Added:No Dr. Contreras notified of the patient's arrival. [facility] 08-28-2023 Nurse Note Patient arrived from home with family member. Dr. Contreras notified of arrival. [facility] 08-28-2023 Progress note Formatting of t his note might be different from the original. 08/28/2023 Notified room Ready @ 11:16 AM spoke to pt, will arrive to admitting @ now, pt is parking the car [facility] 08-27-2023 History of Presen t illness Narrative Purpose of Bubble contrast study explained to patient. IV placed as a saline lock. Sodium chloride 0.9% agitated flush given at rest and with valsalva. IV removed after Echo images obtained without incident. Patient tolerated IV insertion, agitated saline infusions and the removal of the IV without incident. Explained Definity use to patient including potential side effects with emphasis on patient informing the RN/technologist if they develop any symptoms after administration. status: No Medication list reviewed. The patient does NOT have an allergy to Definity. Known sensitivity to Perflutren or Polyethylene Glycol (PEG-containing products such as bowel preparations or laxatives): No Patient tolerated PIV insertion. Definity dose: 1.5 ml diluted with 8.5 ml saline (start with 1-2 ml, additional doses as needed) Total dose given: 2 mL After administration of Definity contrast, the patient experienced no side effects and was without complaints. PIV removed and intact. Adequate hemostasis achieved. documented in this encounter [facility] 08-27-2023 History of Presen t illness Narrative CLINICAL CARE TEAM: -Referring Provider for today's consult: Self, Self -Primary Care Provider: Darlene Garibay HISTORY OF PRESENT ILLNESS: Madhavi Avalos is a 63 y.o. female who presents to the [facility] today for follow-up. I have reviewed her medical, surgical, and social history and have updated medication and allergy information in the computerized patient record. Madhavi Avalos has a history of decompensated [facility] [facility] c/b refractory ascites despite diuretics and weekly paracentesis, EV s/p EBL. History also notable for obesity and CCY She was diagnosed with cirrhosis 2020 when she presented to [facility] with hematemesis and was noted to have volume overload and ascites. She underwent EGD at that time with EBL. Her ascites has been difficult to control despite diuretics and weekly LVPs. She was referred for TIPS and will be admitted tomorrow for elective procedure on 08/29. She will be getting an echocardiogram this afternoon. Her last paracentesis was last 08/23 with 6L removed. Since LILI, she reports she has been doing fair. She endorses abdominal distention/fullness. She reports intermittent abdominal pain from her umbilical hernia. She is moving her bowels 4-5x/day. Her thinking has been clear. She denies any recent ED visits or hospitalizations. Otherwise, she denies any recent fevers, chills, night sweats, unexpected weight loss, chest pain, shortness of breath, nausea, vomiting, abdominal pain, diarrhea, constipation, melena, hematochezia. PAST MEDICAL, SURGICAL, FAMILY, & SOCIAL HISTORY: Past Medical History: Diagnosis Date Abdominal wall hernia Liver disease HARRISON cirrhosis Obesity TB (tuberculosis) 01/2023 Completed treated for 3 months Past Surgical History: Procedure Laterality Date ESOPHAGOSCOPY W/ LIGATION BAND ESOPHAGEAL VARICES 10/2022 CHOLECYSTECTOMY 2021 History reviewed. No pertinent family history. Social History Socioeconomic History Marital status: Tobacco Use Smoking status: Never Smokeless tobacco: Never Vaping Use Vaping Use: Never used Substance and Sexual Activity Alcohol use: Never Drug use: Never MEDICATIONS: Current Outpatient Medications Medication Sig furOSEmide 40 MG tablet Take 3 tablets by mouth daily. Lactulose 10 GM/15ML Solution oral solution Take 30 mL by mouth 2 times daily. Midodrine HCl 10 MG tablet Take 1 tablet by mouth 3 times daily. Ondansetron 4 MG tablet Take 1 tablet by mouth every 12 hours. OXYCODONE-ACETAMINOPHEN PO Take 5 capsules by mouth daily. PROMETHAZINE-CODEINE PO Take by mouth. 5 to 10 ml q6hr Spironolactone 100 MG tablet Take 3 tablets by mouth daily. ALLERGIES: Patient has no known allergies. PHYSICAL EXAM: BP 94/62 (BP Location: Left arm, BP Position: Sitting) Pulse 80 Ht 1.6 m (5' 3 ) Wt 78 kg (172 lb) SpO2 95% BMI 30.47 kg/m Smoking Status Never Constitutional: Breathing easily, in no acute distress. Does not appear cachectic. HEENT: PER, neg scleral icterus, normal appearing oropharynx, no appreciable cervical LAD Cardiovascular: Normal rate and regular rhythm. Pulmonary/Chest: Breath sounds normal. Abdominal: Soft. RUQ TTP. ND. HS. +reducible umbilical hernia Extrem: Nonpitting BLE edema. No gross focal motor deficits in distal extrem. Neurological: AOx4. No asterixis Skin: Does not appear jaundiced. -spiders -palmar erythema REVIEW OF SYSTEMS; otherwise full ROS was reviewed and was otherwise negative Review of Systems Constitutional: Negative. HENT: Negative. Cardiovascular: Negative. Musculoskeletal: Negative. Psychiatric: Negative. Lymph/Heme: Negative. LABORATORY EVALUATION: I have reviewed her pertinent laboratory data in the computerized patient record. Lab Results Component Value Date/Time PT 19.1 (H) 08/10/2023 10:44 AM INR 1.6 (H) 08/10/2023 10:44 AM PLATELET 118 (L) 05/23/2023 10:54 AM WBC 3.68 (L) 05/23/2023 10:54 AM HGB 11.5 05/23/2023 10:54 AM POTASSIUM 4.1 08/10/2023 10:44 AM BUN 18 08/10/2023 10:44 AM CREATSERUM 0.60 08/10/2023 10:44 AM CREATSERUM 0.49 (L) 07/05/2023 05:10 PM GFR >90 08/10/2023 10:44 AM GFR >90 07/05/2023 05:10 PM Lab Results Component Value Date ALT 21 08/10/2023 AST 40 (H) 08/10/2023 ALKPHOS 187 (H) 08/10/2023 BILITOTAL 1.6 (H) 08/10/2023 BILIDIRECT 0.6 (H) 08/10/2023 MELD 3.0: 14 at 08/10/2023 10:44 AM MELD-Na: 13 at 08/10/2023 10:44 AM Calculated from: Serum Creatinine: 0.60 mg/dL (Using min of 1 mg/dL) at 08/10/2023 10:44 AM Serum Sodium: 140 mmol/L (Using max of 137 mmol/L) at 08/10/2023 10:44 AM Total Bilirubin: 1.6 mg/dL at 08/10/2023 10:44 AM Serum Albumin: 3.1 g/dL at 08/10/2023 10:44 AM INR(ratio): 1.6 at 08/10/2023 10:44 AM Age at listing (hypothetical): 63 years Sex: Female at 08/10/2023 10:44 AM Imaging/Procedures 07/05/2023 CT A/P with Contrast IMPRESSION: 1. Cirrhosis with stigmata of portal hypertension, including splenomegaly, large ascites and portosystemic collaterals. 2. Moderate umbilical hernia containing fat and loculated ascites. 3. Partial visualization of severe bronchiectatic changes in the right lower lobe with bronchial wall thickening and volume loss. 02/26/2023 Echo Poor image quality. No apical or subcostal images obtained. The LV segments seen contract normally. Multiple segments not seen, thus an EF cannot be determined. Apparent normal RV function. No significant mitral or aortic valve disease on limited 2D images. No saline contrast study performed due to poor image quality. 11/06/2022 EGD Impression: - Grade III EVs. Incompletely eradicated. Banded. - A medium amount of food (residue) in the stomach - PHG - Normal first portion of the duodenum - No specimens collected ASSESSMENT AND PLAN: Madhavi Avalos is a 63 y.o. female with a history of decompensated [facility] cirrhosis c/b refractory ascites despite diuretics and weekly paracentesis, EV s/p EBL. She will be admitted tomorrow for planned TIPS on 08/29 Plan [facility] Cirrhosis: MELD 3.0 14 from previous labs. Will recheck MELD-Na labs today. Ascites: Continue lasix 120 mg daily and aldactone 300 mg daily. Planned TIPS 08/29. I would recommend adherence to a strict 2 gram, low sodium diet. EV: 10/2022 EGD with large EVs s/p EBL. Repeat EGD scheduled 09/11. Scheduled TIPS as above HE: A&Ox4. Hx of HE. Continue lactulose, titrate to 3-4 BMs/day HCC: 06/2023 CT A/P without focal liver lesion. I would recommend ongoing surveillance for HCC with abdominal imaging in conjunction with serum AFP every 6 months. In addition, I would recommend vaccination against hepatitis A and B. I recommend lifelong abstinence from alcohol and tobacco. I would strictly avoid using NSAIDs for pain control given their risk for mucosal ulceration, bleeding and nephrotoxicity. For pain, I recommend acetaminophen, up to but not exceeding 2,000 mg daily. I would recommend against using narcotics or benzodiazepines given their risk for precipitating or exacerbating hepatic encephalopathy. I would strictly avoid raw shellfish given the risk of Vibrio Vulnificus in cirrhotics. I discussed my impression and plan with the patient. The patient had the opportunity to ask all questions regarding their condition and answered those questions to the best of my ability Discussion with patient and /or family with regards to: Diagnostic results and or recommended studies Risks and benefits of management or treatment options Important of compliance with chosen treatment Risk factor reduction Patient and family education FOLLOW-UP -For follow up, she will return to Dr. Vital's clinic in 3-4 months Thank you for allowing me to participate in the care of Madhavi Avalos. VANCE Cuellar Hepatology Nurse Practitioner Division of Gastroenterology, Hepatology, & Nutrition [facility] This nurse verified pts name and . documented in this encounter [facility] 08-10-2023 History of Presen t illness Narrative Met with patient(only speaks Latvian) and daughter (declined sweeping compound blender for me but sweeping compound blender phone available and used for ADRIANO and Doctor) in IR clinic today to discuss TIPS, reviewed patient medication list, allergies, and day of instructions for procedure. Pt gets weekly paracentesis at [place] for last year. She was drained yesterday for 6.4 liters. Handouts given Patient verbalized understanding of all covered information. Patient will be scheduled for procedure with IR patient scheduler. Pt sent to get labs and will need ECHO before procedure. documented in this encounter [facility] 08-10-2023 Instructions Haile Hammond - 08/10/2023 8:40 AM EDT INFORMATION REGARDING YOUR INTERVENTIONAL RADIOLOGY APPOINTMENT FOR PROCEDURE: Transjugular Intrahepatic Portosystemic Shunt (TIPS) with Dr Manuel DATE: 08/29/23. ARRIVAL TIME: 1:00pm on 08/28/23. CHECK IN: Admitting Office, [address] [place] [address], at the [facility] at the [facility], [address] [place] [address]. It is important to arrive on time to avoid significant delays or possible cancellation of your procedure. Due to COVID -19, you and 1 visitor will have your temperature checked at the front door and be given masks. If you or your visitor do not meet the screening criteria you will not be able to enter the building. Your visitor will be allowed to wait in a designated area during your procedure. Visitor restrictions due to COVID-19 concerns are restricted to 1 guest, 16 years or older. The time you wait for your procedure will vary. Please be aware that emergent procedures may take priority. If you need to cancel your appointment, please call our office at [phone] opt 1 at least 24 hours in advance. Basic Instructions Bring your insurance or medical card, picture ID, and copies of any Advance Directives. Bring a list of your current medications with the name, dose, and how often you take each medication. Leave all valuables (money, jewelry, credit cards, laptops) at home. Wear loose-fitting, comfortable clothing to wear home. Bring cases for glasses and contacts. If you are an outpatient, you MUST be accompanied by a responsible adult who will either drive you home afterwards or accompany you for a cab ride. Failure to do so will result in cancellation of your procedure. We recommend that your responsible adult stay with you overnight. You may park in the hospital garages in the [facility] [address] [place] [address] or [employer] [facility]. [employer] parking is available for $10 (tiwari only) at the main entrance of the [facility] and [facility]. Plan on being here approximately 3-5 days. YOU WILL BE ADMITTED THE DAY BEFORE THE PROCEDURE AT 1:00 PM AND HAVE A PARACENTESIS IF NEEDED During the Procedure: You will have your procedure done in the Interventional Radiology lab. You will receive appropriate sedation and pain control during the procedure and will be under constant nursing and physician care at this time. Your family will be instructed to wait for you on the 4th Floor Family Waiting Area. After the Procedure: Depending on the type of sedation you receive, you may be in an area for close observation before you return to the [facility] where you will be observed and to prepare for discharge. Your family may join you at that time. You will receive written instructions on how to care for yourself prior to discharge. If you are to be admitted following your procedure, you will be transferred to your inpatient bed as soon as it's available Please do not hesitate to call Interventional Radiology at for any questions or concerns regarding your upcoming Interventional Radiology procedure. documented in this encounter [facility] 05-23-2023 History of Presen t illness Narrative Images from the original note were not included. Division of Gastroenterology, Hepatology and Nutrition HEP OP NOTE: HEPATOLOGY OUTPATIENT NOTE PRIMARY CARE PHYSICIAN: Darlene Garibay HEPATOLOGY/GI DIAGNOSIS: 1. Decompensated cirrhosis from HARRISON-MELD NA 15 -02/2023 2. Reccurent Ascites with weekly paracentesis despite diuretics 3. EV s/p banding for SP with h/o hematemesis X1. Last one done 1.? 4. H/o OHE last year X1 on lactulose 5. Gluten sensitivity likely OTHER MEDICAL DIAGNOSIS: 1. S/p CCY 2. TB on rifampin for 2 months 3. Obesity REASON FOR VISIT: 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 HISTORY OF PRESENT ILLNESS: Madhavi Avalos is a 63 y.o. [place] female with decompensated HARRISON cirrhosis with ascites, EV bleeding, OHE, obesity, DM borderlinewho comes to the clinic today for a follow up and for further management.LILI with me 01/2023 I have reviewed the medical, surgical, and social history and have updated medication and allergy information in the computerized patient record. She was diagnosed with liver cirrhosis in 2020 back when she presented [facility] with [facility] and was noted to have volume overload and ascites. Since her last visit She has been following up locally with her pcp. Not with GI. She has had difficult to controls ascites. Currently her ascites is not controlled with weekly paracentesis Of 5.5 L -7.5 L. She takes lasix 80 mg Daily and spironolactone 200 mg. She does ttry to avoid salt in her diet. She gets paracentesis weekly She was noted to have OHE on her first admission and was placed on lactulose . No episodes since. She continues to take 1 tbsp lactulose 3 x day for 2/3 BMs a day She had her EV banding last in oct 2022 She has not been started on a BB due to hypotension. Due for repeat. She had hematemesis January after our clinic visit. She is not sure if she got an EGD then She has been consuming a high protein diet.Still has lost weight of 10 lbs in 3 months. She increased her physically active and goes for walks in the park daily. Started late night protein snack/chicken etc Today in clinic the patient denies fevers, chills, lightheadedness, abdominal pain, diarrhea, constipation, jaundice, pruritus, GI bleeding, nausea, vomiting, weight loss, ascites or confusion REVIEW OF SYSTEMS: Constitutional: no fevers, no chills, no weakness. HEENT: no blurring of vision, no diplopia. Respiratory: no sob, no wheezing, no cough. Cardiovascular: no chest pain, no PND/orthopnea, no edema Gastrointestinal: no diarrhea, no abdominal pain, no nausea, no vomiting. Genitourinary: no dysuria Musculoskeletal: no joint pain, ROM not limited. Neurological: no headache, no focal deficits. Psychiatry: no anxiety, no depression. All other systems were reviewed and were negative. Past medical History: as above Past surgical History: as above ALLERGIES: No Known Allergies HOME MEDICATIONS: Current Outpatient Medications Medication Instructions furOSEmide (LASIX) 80 mg, Oral, DAILY Lactulose 10 GM/15ML Solution oral solution 30 mL, Oral, 2 TIMES DAILY Midodrine HCl 10 mg, Oral, 3 TIMES DAILY Ondansetron (ZOFRAN) 4 mg, Oral, EVERY 12 HOURS OXYCODONE-ACETAMINOPHEN PO 5 capsules, Oral, DAILY Pneumococcal 20-Sade Conj Vacc 0.5 ML Suspension Prefilled Syringe injection 0.5 mL, Intramuscular, ONCE (IN CLINIC) PROMETHAZINE-CODEINE PO Oral, 5 to 10 ml q6hr Spironolactone (ALDACTONE) 200 mg, Oral, DAILY SOCIAL HISTORY: Social Situation: lives with daughterLaurence, 2 sons close by.She is unemployed. She lives and is to a man who is a Green card beltrán. She herself came her illegally but after her marriage has filed some paperwork that is still pending Tobacco:none Alcohol: none Illicit's: none FAMILY HISTORY: No history of Liver, GI malignancy in first degree family member, no history of IBD Physical Examination: Measurements: BP 104/62 (BP Location: Left arm, BP Position: Sitting) Pulse 78 Resp 16 Ht 1.598 m (5' 2.9 ) Wt 79.7 kg (175 lb 11.2 oz) SpO2 99% BMI 31.22 kg/m Smoking Status Never General: The patient is in no acute distress. obese Eyes: Sclera anicteric. ENT: No oral lesions. Skin: No spider angiomata, no jaundice, no palmar erythema, + Sanjay s nails no xanthelasma. Respiratory: Lungs clear to auscultation. Cardiovascular: Regular rate, no murmurs, +edema b/l. Abdomen: Soft, non-tender, liver , spleen not palpable, + ascites. Extremities: + muscle wasting, no gross arthritic changes. Neurologic: Alert and oriented, cranial nerves grossly intact, no asterixis. LABS CBC Lab Results Component Value Date WBC 3.57 (L) 02/13/2023 HGB 11.3 (L) 02/13/2023 HCT 34.7 (L) 02/13/2023 PLATELET 68 (L) 02/13/2023 MCV 90.1 02/13/2023 EDIF Lab Results Component Value Date RBCDISTRIBU 16.2 (H) 02/13/2023 GRNLOCYT 45.8 11/09/2022 LYMPHOCYT 37.5 11/09/2022 MONOCYTELEC 13.4 11/09/2022 EOSINOPHILS 4.2 02/13/2023 BASOPHILS 0.8 02/13/2023 LYMPHOCYTABS 1.12 (L) 02/13/2023 EOSINOPHLABS 0.15 02/13/2023 PLATELET 68 (L) 02/13/2023 MPV 02/13/2023 Comment: Not measured LABS @RESUFAST(WBC,HGB,HCT,MCV,PLT)@ @RESUFAST(GLUCOSE,CALCIUM,NA,K,CO 2,CL,BUN,CREATNINE)@ @RESUFAST(INR:3,PROTIME:3)@ @RESUFAST(ALT,AST,GGT,ALKPHOS,CONCEPCION ITOT)@ @RESUFAST(TACROLIMUS)@ None recently available Outside hospital labs from February 2022 Hemoglobin 9.5, WBC 4, platelets 130 BUN 14, creatinine 0.5 to Albumin 2, globulin 4.6, AST 31, ALT 16, alkaline phosphatase 104, total bilirubin 1.2 Sodium 141, potassium 4 TB QuantiFERON gold positive IMAGING: reviewed past CT abdomen Cirrhotic liver morphology with perihepatic fluid and splenomegaly ENDOSCOPY REPORTS/PATHOLOGY REPORTS: No reports available but apparently had a colonoscopy done 2021 ASSESSMENT/PLAN: Madhavi Avalos is a 62 y.o. [facility] female with what appears to be decompensated HARRISON cirrhosis, who comes to the clinic today for a LT evaluation and for further management pts cell [phone] 1. Decompensated cirrhosis: - Etiology: NAFLD/HARRISON - Diagnosis basis: decompensation - MELD Na: MELD NA 15 (INR 1.6, Bili 2, Cr 0.59. Na 136) 10/2022 -repeat labs today - Transplant candidacy: will refer for OLT once she Has GC in hand. Till then there is no option for insurance 2. Ascites: - Has significant ascites And is getting weekly paracentesis - Currently on lasix 40 mg daily and 100 mg spironolactone. Will check labs todauy and if normal will increase dose to 120/300. Repeat labs locally in 2 weeks and then reasess - Will continue midodrine to 10 mg tid - Might need TIPS if MELD stable . ECHO wnl - Recommend lowsalt intake of <2 gm/day as per her GI. - Recommend that patient monitor daily weights at home. 3.OHE: - Prior h/o OHE and none clinically today. - Continue lactulose for 2-3 Bowel movements a day. - Avoid narcotics and sedatives as outpatient 4.Variceal Screen: - Last EGD done on 11.06.2022 per her GI - Was past due and she does no think she has had once since. Not able to be on BB due to hypotension - No active bleeding currently. 5. HCC screening: - Last liver US on with no mass. - Continue OP liver US every 6 months. Repeat due in 2022. Will order , she did not get it done locally last time 6. Sarcopenia: - Counseled on diet and exercise as below. 7. TB: - Latent and Quantiferon gold +ve. She is asymptomatic. - On rifampin for 2 months only. Will need refer to transplant ID if repeat +ve Education: - Avoid all alcohol - Discussed low-salt diet and to maintain salt intake of less than 2 g a day - Discussed avoiding raw seafood including shellfish - Discussed limiting use of Tylenol till less than 2 g a day and to avoid use of all NSAIDs - Discussed that patient needs to maintain a high-protein( 1.2- 1.5 g/kg/day), - Discussed that patient needs to maintain physical activity at least 3 times a week 30 minutes of cardio exercise or resistance training Health Care Maintenance: - Immunizations: -Will address this on subsequent visit - PPV 20: will give today 05/23/23 - Hep A/B: immune to hav. check hbv - Influenza: done - COVID:X3 moderna - Colonoscopy: Return to clinic in 3 months Randal NEAL Welcome Desk Agent in Clinical Medicine Department of Internal medicine Pager:[phone] This nurse used sweeping compound blender [phone]. This nurse verified pts name and . Order for Pnemococcal injection verified.Patient verified full name and upon entering exam room. Hand hygiene completed and donned clean gloves. Provided VIS sheet. Patient verbalized consent to injection at this time.Injection given in left deltoid. Patient tolerated well, denies any questions or concerns at this time. Patient provided number as they were placed on a wait list. Patient provided number as they were placed on a wait list. documented in this encounter [facility] 05-23-2023 Instructions Randal Vital MD - 05/23/2023 10:30 AM EDT - labs today and if stable will increase water pill dose - get appt for liver US - We will call you to schedule EGD appt for you General liver Education: - No alcohol - Low-salt diet and to maintain salt intake of less than 2 g a day - Avoid raw seafood including shellfish - Limit use of Tylenol till less than 2 g a day and to avoid use of all NSAIDs - Maintain a high-protein( 1.2- 1.5 g/kg/day), high-calorie diet( 20 kcal/kg/day), and to have a late night protein snack( either Ensure/ Premier protein or apples with peanut butter) - Maintain physical activity at least 3 times a week 30 minutes of cardio exercise or resistance training documented in this encounter [facility] 11-07-2022 History of Presen t illness Narrative Images from the original note were not included. Division of Gastroenterology, Hepatology and Nutrition HEP OP NOTE: HEPATOLOGY OUTPATIENT NOTE PRIMARY CARE PHYSICIAN: No primary care provider on file. REFERRING PROVIDER: Damian Estrada DO [address] [place] [phone] HEPATOLOGY/GI DIAGNOSIS: 1. Decompensated cirrhosis from HARRISON- No MELD labs available 2. Reccurent Ascites with weekly paracentesis for 6 months - apparently intolerant of diuretics for the past 6 months 3. EV s/p banding for SP with h/o hematemesis X1. Last one done 11.06.2022 4. H/o OHE last year X1 on lactulose OTHER MEDICAL DIAGNOSIS: 1. S/p CCY 2. TB on rifampin 3. Obesity REASON FOR VISIT: 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 HISTORY OF PRESENT ILLNESS: Madhavi Avalos is a 62 y.o. [facility] female with what appears to be decompensated HARRISON cirrhosis, who comes to the clinic today for a LT evaluation and for further management I have reviewed the medical, surgical, and social history and have updated medication and allergy information in the computerized patient record. She was diagnosed with liver cirrhosis 1 year back when she presented to [facility] with hematemesis and was noted to have volume overload and ascites. Her cpts have been ongoing and progressing for a few months then She was noted to have OHE that admission and was placed on lactulose . No episodes since. She continues to take 1 tbsp lactulose 3/4 x day for 2/3 BMs a day She has had difficult to controls ascites. Currently her ascites is controlled with weekly paracentesis. She has been on high dose diuretics in the past but was stopped for unclear reasons. I do not have notes available. She apparently does ttry to avoid salt in her diet. She has teresa placed on a 1.5 L fluid restriction which makes me believe that she might have hyponatremia. She had her EV banding yesterday. She has not been started on a BB due to hypotension She is not really consuming a high protein diet. Not very physically active. Seems to be frail and needs a WC to walk long distances. Today in clinic the patient denies fevers, chills, lightheadedness, abdominal pain, diarrhea, constipation, jaundice, pruritus, GI bleeding, nausea, vomiting, weight loss, ascites or confusion Outside hospital labs from February 2022 Hemoglobin 9.5, WBC 4, platelets 130 BUN 14, creatinine 0.5 to Albumin 2, globulin 4.6, AST 31, ALT 16, alkaline phosphatase 104, total bilirubin 1.2 Sodium 141, potassium 4 TB QuantiFERON gold positive REVIEW OF SYSTEMS: Constitutional: no fevers, no chills, no weakness. HEENT: no blurring of vision, no diplopia. Respiratory: no sob, no wheezing, no cough. Cardiovascular: no chest pain, no PND/orthopnea, no edema Gastrointestinal: no diarrhea, no abdominal pain, no nausea, no vomiting. Genitourinary: no dysuria Musculoskeletal: no joint pain, ROM not limited. Neurological: no headache, no focal deficits. Psychiatry: no anxiety, no depression. All other systems were reviewed and were negative. Past medical History: as above Past surgical History: as above ALLERGIES: No Known Allergies HOME MEDICATIONS: Current Outpatient Medications Medication Instructions albuterol 90 MCG/ACT Inhaler 2 puffs, Inhalation, EVERY 6 HOURS NEEDED Lactulose (Constulose) 10 GM/15ML Solution oral solution 30 mL, Oral, 2 TIMES DAILY Lidocaine HCl (Lidocaine viscous) 2 % Solution 15 mL, Mouth/Throat, EVERY 3 HOURS NEEDED midodrine (PROAMATINE) 5 mg, Oral, 3 TIMES DAILY Ondansetron (ZOFRAN) 4 mg, Oral, EVERY 12 HOURS OXYCODONE-ACETAMINOPHEN PO 5 capsules, Oral, DAILY PROMETHAZINE-CODEINE PO Oral, 5 to 10 ml q6hr rifAMPin (RIFADINE) 300 mg, Oral, 2 TIMES DAILY SOCIAL HISTORY: Social Situation: lives with daughterLaurence, 2 sons close by.She is unemployed. She lives and is to a man who is a Green card beltrán. She herself came her illegally but after her marriage has filed some paperwork that is still pending Tobacco:none Alcohol: none Illicit's: none FAMILY HISTORY: No history of Liver, GI malignancy in first degree family member, no history of IBD Physical Examination: Measurements: BP 102/70 (BP Location: Left arm, BP Position: Sitting) Pulse 88 Resp 18 Ht 1.575 m (5' 2 ) Wt 84.8 kg (187 lb) SpO2 98% BMI 34.20 kg/m Smoking Status Never General: The patient is in no acute distress. obese Eyes: Sclera anicteric. ENT: No oral lesions. Skin: No spider angiomata, no jaundice, no palmar erythema, + Sanjay s nails no xanthelasma. Respiratory: Lungs clear to auscultation. Cardiovascular: Regular rate, no murmurs, +edema b/l. Abdomen: Soft, non-tender, liver , spleen not palpable, + ascites. Extremities: + muscle wasting, no gross arthritic changes. Neurologic: Alert and oriented, cranial nerves grossly intact, no asterixis. LABS None recently available IMAGING: reviewed CT abdomen Cirrhotic liver morphology with perihepatic fluid and splenomegaly ENDOSCOPY REPORTS/PATHOLOGY REPORTS: No reports available ASSESSMENT/PLAN: Madhavi Avalos is a 62 y.o. [facility] female with what appears to be decompensated HARRISON cirrhosis, who comes to the clinic today for a LT evaluation and for further management 1. Decompensated cirrhosis: - Etiology: NAFLD/HARRISON most likely but will get CLD labs today - Diagnosis basis: decompensation - MELD Na: Labs pending. She was the last pt of the day and the lab had closed. She will come back tomorrow morning - Transplant candidacy: need to assess meld score 2. Ascites: - Has minimal ascites clinically - Apparently intolerant of lasix but is on 50 mg spironolactone - Will add midodrine today 5 mg tid - Recommend conitnued fluid restriction to <1.5 L day and salt intake of <2 gm/day as per her GI. - Recommend that patient monitor daily weights at home. 3.OHE: - Prior h/o OHE and none clinically today. - Continue lactulose for 2-3 Bowel movements a day. - Avoid narcotics and sedatives as outpatient 4.Variceal Screen: - Last EGD done on 11.06.2022 per her GI - Being managed by them. Not able to be on BB due to hypotension - No active bleeding currently. 5. HCC screening: - Last liver US on with no mass. - Continue OP liver US every 6 months. Repeat due in 2022. Being managed by local GI 6. Sarcopenia: - Counseled on diet and exercise as below. 7. TB: - Latent and Quantiferon gold +ve. She is asymptomatic - On rifampin Education: - Avoid all alcohol - Discussed low-salt diet and to maintain salt intake of less than 2 g a day - Discussed avoiding raw seafood including shellfish - Discussed limiting use of Tylenol till less than 2 g a day and to avoid use of all NSAIDs - Discussed that patient needs to maintain a high-protein( 1.2- 1.5 g/kg/day), - Discussed that patient needs to maintain physical activity at least 3 times a week 30 minutes of cardio exercise or resistance training Health Care Maintenance: - Immunizations: -Will address this on subsequent visit - PCV13/PSV23: unclear history - Hep A/B: will check serologies - Influenza: unclear - COVID:unclear - Colonoscopy: per local GI willask on next visit Return to clinic in 3 Randal NEAL Welcome Desk Agent in Clinical Medicine Department of Internal medicine Pager:[phone] This CYBER REVERSE ENGINEER verified patient's name and through skin toggler #[id number]. documented in this encounter [facility] 11-07-2022 Instructions Randal Vital MD - 11/07/2022 4:30 PM EST General liver Education: - Low-salt diet and to maintain salt intake of less than 2 g a day - Avoid raw seafood including shellfish - Limit use of Tylenol till less than 2 g a day and to avoid use of all NSAIDs - Maintain a high-protein( 1.2- 1.5 g/kg/day), high-calorie diet( 20 kcal/kg/day), and to have a late night protein snack( either Ensure/ Premier protein or apples with peanut butter) - Maintain physical activity at least 3 times a week 30 minutes of cardio exercise or resistance training documented in this encounter [facility] Diagnosis Decompensated hepatic cirrhosis [facility] Diagnosis Decompensated hepatic cirrhosis- Primary [facility] Diagnosis Other ascites [facility] Diagnosis Other ascites- Primary Other cirrhosis of liver Other ascites Other cirrhosis of liver Other ascites Other cirrhosis of liver [facility] Diagnosis Other ascites Other cirrhosis of liver Decompensated hepatic cirrhosis- Primary Other ascites Other cirrhosis of liver [facility] Diagnosis Other ascites Other ascites Other cirrhosis of liver [facility] Diagnosis Other ascites Other cirrhosis of liver Decompensated hepatic cirrhosis 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 [address] [place] [address] [address] [place] [address] Referral ID Status Reason Start Date Expiration Date Visits Re quested Visits Authorized [id number] Closed 02/13/2023 03/09/2024 1 1 Specialty Diagnoses / Procedures Referred By Dorian romero Referred To Contact Diagnoses Decompensated hepatic cirrhosis Procedures US ABDOMEN RUQ/LIVER/GB Randal Vital MD [address] [place] [address] Referral ID Status Reason Start Date Expiration Date V isits Requested Visits Authorized [id number] New Request 05/23/2023 06/16/2024 1 1 Specialty Diagnoses / Procedures Referred By Contac t Referred To Contact Diagnoses Decompensated hepatic cirrhosis Procedures INTERVENTIONAL UPPER ENDOSCOPY INTERVENTIONAL UPPER ENDOSCOPY WA ESOPHAGOGASTRODUODENOSCOPY TRANSORAL DIAGNOSTIC Randal Vital MD [address] [place] [phone] Referral ID Status Reason Start Date Expiration Date V isits Requested Visits Authorized [id number] New Request 05/23/2023 06/16/2024 1 1 Specialty Diagnoses / Procedures Referred By Contac t Referred To Contact Diagnoses Other ascites Procedures CT ABDOMEN/PELVIS WITH CONTRAST CHG CT SCAN,ABDOMENT AND PELVIS,W CONTRAST Randal Vital MD [address] [place] [phone] Referral ID Status Reason Start Date Expiration Date V isits Requested Visits Authorized [id number] New Request 06/20/2023 07/14/2024 1 1 Specialty Diagnoses / Procedures Referred By Contac t Referred To Contact Diagnoses Other ascites Other cirrhosis of liver Procedures CASE REQUEST DEPARTMENT USE ONLY INTERVENTIONAL RADIOLOGY Haile Maldonado, LITHOGRAPHIC PHOTOGRAPHER APPRENTICE-AUTOMATIC MACHINE ATTENDANT [address] [place] [address] Referral ID Status Reason Start Date Expiration Date V isits Requested Visits Authorized [id number] New Request 08/10/2023 09/03/2024 1 1 Specialty Diagnoses / Procedures Referred By Contac t Referred To Contact Diagnoses Other ascites Procedures ECHOCARDIOGRAM WA ECHO HEART XTHORACIC,COMPLETE W DOPPLER Haile Maldonado, LITHOGRAPHIC PHOTOGRAPHER APPRENTICE-AUTOMATIC MACHINE ATTENDANT [address] [place] [address] Referral ID Status Reason Start Date Expiration Date V isits Requested Visits Authorized [id number] New Request 08/10/2023 09/03/2024 1 1 Specialty Diagnoses / Procedures Referred By Contac t Referred To Contact Echocardiography Diagnoses Other ascites Procedures ECHOCARDIOGRAM WA ECHO HEART XTHORACIC,COMPLETE W DOPPLER Haile Maldonado, LITHOGRAPHIC PHOTOGRAPHER APPRENTICE-AUTOMATIC MACHINE ATTENDANT [address] [place] [address] Echocardiography [place] [address] [place] [address] Referral ID Status Reason Start Date Expiration Date Visits Re quested Visits Authorized [id number] Closed 08/10/2023 09/03/2024 1 1 Specialty Diagnoses / Procedures Referred By Contac t Referred To Contact Procedures DVT/VTE RISK ASSESSMENT Seth Hines MD, MPH [address] [place] [address] Referral ID Status Reason Start Date Expiration Date V isits Requested Visits Authorized [id number] New Request 08/28/2023 09/21/2024 1 1 Specialty Diagnoses / Procedures Referred By Contac t Referred To Contact Diagnoses 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 FriendDamian, [address] [place] [address] Referral ID Status Reason Start Date Expiration Date V isits Requested Visits Authorized [id number] New Request 03/17/2022 04/11/2023 1 1 Specialty Diagnoses / Procedures Referred By Contac t Referred To Contact Echocardiography Diagnoses Decompensated hepatic cirrhosis Procedures ECHOCARDIOGRAM WA ECHO HEART XTHORACIC,COMPLETE W DOPPLER Randal Vital MD [address] [place] [address] Echocardiography [place] [address] [place] [address] Referral ID Status Reason Start Date Expiration Date Visits Re quested Visits Authorized [id number] Closed 02/13/2023 03/09/2024 1 1 Reason Comments Follow-up Specialty Diagnoses / Procedures Referred By Contac t Referred To Contact Diagnoses Other ascites Procedures CT ABDOMEN/PELVIS WITH CONTRAST CHG CT SCAN,ABDOMENT AND PELVIS,W CONTRAST Randal Vital MD [address] [place] [address] Referral ID Status Reason Start Date Expiration Date V isits Requested Visits Authorized [id number] New Request 06/20/2023 07/14/2024 1 1 Reason Comments Consult Specialty Diagnoses / Procedures Referred By Contac t Referred To Contact Interventional Radiology Diagnoses Decompensated hepatic cirrhosis Randal Vital MD [address] [facility] [address] [place] [phone] Referral ID Status Reason Start Date Expiration Date V isits Requested Visits Authorized [id number] New Request 06/18/2023 07/12/2024 1 1 Reason Comments Follow-up Concerns with throat Specialty Diagnoses / Procedures Referred By Contac t Referred To Contact Echocardiography Diagnoses Other ascites Procedures ECHOCARDIOGRAM WA ECHO HEART XTHORACIC,COMPLETE W DOPPLER Haile Maldonado, LITHOGRAPHIC PHOTOGRAPHER APPRENTICE-AUTOMATIC MACHINE ATTENDANT [address] [place] [address] Echocardiography [place] [address] [facility] [address] [place] [phone] Referral ID Status Reason Start Date Expiration Date Visits Re quested Visits Authorized [id number] Closed 08/10/2023 09/03/2024 1 1 Specialty Diagnoses / Procedures Referred By Contac t Referred To Contact Diagnoses Other ascites Other cirrhosis of liver Other ascites [R18.8] Other cirrhosis of liver [K74.69] Procedures WA INSERT TRANSVEN INTRAHEP PORTOSYS SHUNT WA ABDOM PARACENTESIS DX/THER W IMAGING GUIDANCE INSERTION SHUNT TRANSVENOUS INTRAHEPATIC PORTOSYSTEMIC PERCUTANEOUS (TIPS) PARACENTESIS ABDOMINAL W/ IMAGING GUIDANCE Seth Hines MD, MPH [address] [address] [facility] [address] [place] [address] Referral ID Status Reason Start Date Expiration Date Visits Re quested Visits Authorized [id number] 1 1 Reason Comments Post-Discharge Follow Up Care Teams (unrecognized sec tion and content) Bowling Ball Molder Relationship Specialty Start Date End Date Darlene Garibay MD [address] [place] [address] PCP - General Family Medicine 05/23/23 Bowling Ball Molder Relationship Specialty Start Date End Date Darlene Garibay MD [address] [place] [address] PCP - General Family Medicine 05/23/23 Bowling Ball Molder Relationship Specialty Start Date End Date Darlene Garibay MD [address] [place] [address] PCP - General Family Medicine 05/23/23 Bowling Ball Molder Relationship Specialty Start Date End Date Darlene Garibay MD [address] [place] [address] PCP - General Family Medicine 05/23/23 Scheduled Active and Recently Administ ered Medications (unrecognized section and content) Continuous Medication Order 08/28/2023 08/29/2023 08/30/2023 albumin human 5 % injection 25 g 25 g, Intravenous, CONTINUOUS, Starting on Sun08/29/23 at 0700, Until Sun08/30/23 at 1842, Indications: Fluid Resuscitation, Intra-op/Intra-Proc 0946 (Given - Provider: VALENTÍN GrullonVESSEL WELDER) PRN Medication Order 08/28/2023 08/29/2023 08/30/2023 Acetaminophen (TYLENOL) tablet 650 mg 650 mg, Oral, EVERY 6 HOURS NEEDED, Starting on Sun08/28/23 at 1141, Until Sun08/30/23 at 1842, Mild Pain, Oral temp > 100.4 F, Maximum dose of acetaminophen is 4000 mg from all sources in 24 hours. Ampicillin-Sulbactam Sodium (UNASYN) 3 g in sodium chloride 0.9% (MB PLUS) 100 mL (total volume) IVPB (COMPLETED) 3 g, Intravenous, Administer over 30 Minutes, TELEVISION ANCHOR TO PROCEDURE, 1 dose, Starting on Sun08/29/23 at 0713, Until Sun08/29/23 at 2156, Surgical Prophylaxis, Initiate antibiotic administration 30-60 minutes prior to surgical incision and complete administration prior to surgical incision., Pre-op/Pre-Proc 0838 ($$New Bag$$ - Provider : DEE Britton)1039 (Bolus - Provider: DEE Britton)2156 (Stopped - Provider: Toma Byers RN - Comment: not running at shift change) guaiFENesin (ROBITUSSIN) oral solution 400 mg 400 mg, Oral, EVERY 6 HOURS NEEDED, Starting on Sun08/28/23 at 1141, Until Sun08/30/23 at 1842, Cough, Congestion Melatonin tablet 6 mg 6 mg, Oral, DAILY AT BEDTIME NEEDED, Starting on Sun08/28/23 at 1141, Until Sun08/30/23 at 1842, Insomnia Ondansetron (ZOFRAN) tablet 4 mg(Linked Group 1) 4 mg, Oral, EVERY 6 HOURS NEEDED, Starting on Sun08/28/23 at 1141, Until Sun08/30/23 at 1842, Nausea / Vomiting, 1st line for Nausea/Vomiting Ondansetron 4mg/2ml (ZOFRAN) injection 4 mg(Linked Group 1) 4 mg, Intravenous, EVERY 6 HOURS NEEDED, Starting on Sun08/28/23 at 1141, Until Sun08/30/23 at 1842, Nausea / Vomiting, 1st line for Nausea/Vomiting Polyethylene glycol (MIRALAX) packet 17 g 17 g, Oral, DAILY NEEDED, Starting on Sun08/28/23 at 1141, Until Sun08/30/23 at 1842, Constipation 1st Line Prochlorperazine (COMPAZINE) injection 5 mg 5 mg, Intravenous, EVERY 1 HOUR NEEDED, 2 doses, Starting on Sun08/29/23 at 1351, Until Sun08/30/23 at 1842, Nausea / Vomiting, FIRST Line antiemetic, Do not administer within 6 hours of intra-operative dose. For IV route: dilute dose with 10mL normal saline and give by slow IV push at a rate of 5mg/min. Maximum of 40mg/day., Recovery 1358 (Given - Provider: Stacie Gonzales RN) Sodium chloride 0.9% IV solution 250 mL Intravenous, at 20 mL/hr, NEEDED, Starting on Sun08/28/23 at 1141, Until Sun08/30/23 at 1842, Carrier Fluid - See Admin. Inst, 250mL 0.9NS to be used as carrier fluid for intermittent small volume or piggyback medication administration as needed. Infusion rate of the carrier fluid should be set at 20 mL/hr unless the rate as the intermittent medication is less than 20 mL/hr. For intermittent medications with a rate less than 20 mL/hr set the carrier fluid at that rate of the intermittent or piggy back medication. Linked Groups Order Group 1: Ondansetron 4mg/2ml (ZOFRAN) injection 4 mgJump to med 4 mg, Intravenous, EVERY 6 HOURS NEEDED, Starting on Sun08/28/23 at 1141, Until Sun08/30/23 at 1842, Nausea / Vomiting, 1st line for Nausea/Vomiting Or Ondansetron (ZOFRAN) tablet 4 mgJump to med 4 mg, Oral, EVERY 6 HOURS NEEDED, Starting on Sun08/28/23 at 1141, Until Sun08/30/23 at 1842, Nausea / Vomiting, 1st line for Nausea/Vomiting INFORMATION SOURCE (unrecogn ized section and content) FOR RECORDS PERTAINING TO PATIENTS WHO ARE OR HAVE BEEN ENROLLED IN A CHEMICAL DEPENDENCY/SUBSTANCEABUSE PROGRAM, SOME INFORMATION MAY BE OMITTED. This clinical summary was aggregated from multiple sources. Caution should be exercised in using it in the provision of clinical care. This summary normalizes information from multiple sources, and as a consequence, information in this document may materially change the coding, format and clinical context of patient data. In addition, data may be omitted in some cases. CLINICAL DECISIONS SHOULD BE BASED ON THE PRIMARY CLINICAL RECORDS. [facility] [employer] [facility]. provides no warranty or guarantee of the accuracy or completeness of information in this document.
--- NOTE | 2023-11-08 13:25 | PCM.OP.PRO ---
Procedure Report Date of Procedure: 11/08/23 Assessment & Plan Assessment/Plan (1) Abdominal ascites: QUALIFIERS: Ascites type: other type Qualified Code(s): R18.8 - Other ascites PLAN: PROCEDURE: Ultrasound guided paracentesis ORDERING PROVIDER: Dr. Estrada INDICATION: Female, 63 years old. Ascites. PROVIDER: VANCE Painting TECHNIQUE: The risks, benefits, and alternatives to the procedure were explained to the patient. The specific risks of bleeding, infection, and damage to bowel were detailed and accepted. Witnessed informed consent was obtained. The abdomen was ultrasonographically surveyed. An appropriate pocket of fluid was identified in the left lower quadrant. The skin was prepped with chlorhexidine and sterile field established. 2% lidocaine was used for local anesthetic. Using ultrasound guidance, the peritoneal cavity was accessed with a 5-Ukrainian paracentesis needle/catheter system. The trocar was removed. A total of 4900 ml of clear yellow colored fluid was removed from the peritoneal cavity. The catheter was removed and a sterile dressing was applied. The procedure was well tolerated. IMPRESSION: Successful ultrasound-guided paracentesis with left lower quadrant access site. Procedures Radiology Radiology US Procedures: 08162 Paracentesis
== END | disposition home or self-care (01) ==
PROVIDERS: PCP Family Medicine; Referring Provider Internal Medicine Gastroenterology; Visit Provider Internal Medicine Gastroenterology
DX: K75.81 Nonalcoholic steatohepatitis (NASH) (principal)
CPT/HCPCS: 49083; 76705

== ENCOUNTER → 2023-11-15 | Outpatient (CLI) | payer SELFPAY ==
[2023-11-15 12:48] VITALS: BP 114/60; PULSE 73; RESP 18; TEMP 36.6; O2SAT 97
[2023-11-15] MEDS: Lidocaine 2% (20 ml mdv) 20 ML Vial INFILT (12:58)
[2023-11-15 13:00] VITALS: BP 109/58; PULSE 75; RESP 18; O2SAT 99
--- OUTSIDE RECORDS SUMMARY | 2023-11-15 13:09 | XMS RPT_ITS | CCD ---
Author Name Unknown Address [address] [place] [address] Organization [facility] Care Team Providers Care Rail Switchman Name Role Phone Unavailable Primary Care Provider Unavailjairo Garibay MD, [place] Primary Care Provider [phone] AARON MANNING Primary Care Unavailable HAILE MALDONADO Attending Unavailable HAILE MALDONADO Referring Unavailable NEPTALI, CHATHUR Referring Unavailable NEPTALI, CHATHUR Referring Unavailable SETH HINES Admitting Unavailable SETH HINES Attending Unavailable [facility] Primary Care Unavailable SELF, SELF Referring Unavailable ANNABEL GOETZ Attending Unavailable [facility] Primary Care Unavailable ANNABEL GOETZ Attending Unavailable [facility] Primary Care Unavailable SELF, SELF Referring Unavailable [facility] Primary Care Unavailable NEPTALI, CHATHUR Referring Unavailable [facility] Primary Care Unavailable MANUEL AMBER Attending Unavailable NEPTALI, CHATHUR Referring Unavailable NEPTALI, CHATHUR Attending Unavailable [facility] Primary Care Unavailable NEPTALI, CHATHUR Attending Unavailable SELF, SELF Referring Unavailable SELF, SELF Referring Unavailable NEPTALI, CHATHUR Attending Unavailable NEPTALI, CHATHUR Referring Unavailable NEPTALI, CHATHUR Attending Unavailable NEPTALI, CHATHUR Attending Unavailable [facility] Primary Care Unavailable SELF, SELF Referring Unavailable SELF, SELF Referring Unavailable NEPTALI, CHATHUR Attending Unavailable SELF, SELF Referring Unavailable BUTNARIUKEN I Attending Unavailable NEPTALI, CHATHUR Referring Unavailable [facility] Primary Care Unavailable SELF, SELF Referring [...] Acetaminophen (TYLENOL) tablet 650 mg Albumin Human, FPC (2 sources) Human Serum Albumin Start: 08-29-2023 [...] [Ratio] 31.91 kg/m2 Annabel WOODARD Work Phone: [facility] 10-16-2023 10:59-0500 Body weight 76.61 kg Annabel WOODARD Work Phone: [facility] 10-16-2023 10:59-0500 Diastolic blood pressure 58 mm[Hg] Annabel WOODARD Work Phone: [facility] 10-16-2023 10:59-0500 Heart rate 103 /min Annabel WOODARD Work Phone: [facility] 10-16-2023 10:59-0500 SaO2% (BldA) [Mass fraction] 98 % Annabel WOODARD Work Phone: [facility] 10-16-2023 10:59-0500 Systolic blood pressure 98 mm[Hg] Annabel Goetz COLLECTION SYSTEMS CONSULTANT-COKE HANDLING SUPERVISOR Work Phone: [facility] 08-30-2023 13:44-0400 Body temperature 97.39 [degF] Seth Hines MD, MPH Work Phone: [facility] 08-30-2023 13:44-0400 Diastolic blood pressure 52 mm[Hg] Seth Hines MD, MPH Work Phone: [facility] 08-30-2023 13:44-0400 Heart rate 65 /min Seth Hines MD, MPH Work Phone: [facility] 08-30-2023 13:44-0400 Respiratory rate 16 /min Seth Hines MD, MPH Work Phone: [facility] 08-30-2023 13:44-0400 SaO2% (BldA) [Mass fraction] 97 % Seth Hines MD, MPH Work Phone: [facility] 08-30-2023 13:44-0400 Systolic blood pressure 95 mm[Hg] Seth Hines MD, MPH Work Phone: [facility] 08-28-2023 11:49-0400 Body height 154.9 cm Seth Hines MD, MPH Work Phone: [facility] 08-28-2023 11:49-0400 Body mass index (BMI) [Ratio] 32.9 kg/m2 Seth Hines MD, MPH Work Phone: [facility] 08-28-2023 11:49-0400 Body weight 78.97 kg Seth Hines MD, MPH Work Phone: [facility] 08-27-2023 13:10-0400 Body height 160 cm Haile Maldonado COLLECTION SYSTEMS CONSULTANT-COKE HANDLING SUPERVISOR Work Phone: [facility] 10-30-2023 13:10-0400 Body mass index (BMI) [Ratio] 30.47 kg/m2 Haile Erica COLLECTION SYSTEMS CONSULTANT-COKE HANDLING SUPERVISOR Work Phone: [facility] 08-27-2023 13:10-0400 Body weight 78 kg Haile Erica COLLECTION SYSTEMS CONSULTANT-COKE HANDLING SUPERVISOR Work Phone: [facility] 08-27-2023 13:10-0400 Diastolic blood pressure 62 mm[Hg] Haile Maldonado COLLECTION SYSTEMS CONSULTANT-COKE HANDLING SUPERVISOR Work Phone: [facility] 08-27-2023 13:10-0400 Heart rate 80 /min Haile Maldonado COLLECTION SYSTEMS CONSULTANT-COKE HANDLING SUPERVISOR Work Phone: 7(350)230-[address] [place] [address] 08-27-2023 13:10-0400 Systolic blood pressure 94 mm[Hg] Haile Maldonado COLLECTION SYSTEMS CONSULTANT-COKE HANDLING SUPERVISOR Work Phone: 4(957)298-349914 [place] [address] 08-27-2023 08:36-0400 Body height 160 cm Annabel Goetz COLLECTION SYSTEMS CONSULTANT-COKE HANDLING SUPERVISOR Work Phone: [facility] 08-27-2023 08:36-0400 Body mass index (BMI) [Ratio] 30.47 kg/m2 Annabel Goetz COLLECTION SYSTEMS CONSULTANT-COKE HANDLING SUPERVISOR Work Phone: [facility] 08-27-2023 08:36-0400 Body weight 78.02 kg Annabel Goetz COLLECTION SYSTEMS CONSULTANT-COKE HANDLING SUPERVISOR Work Phone: [facility] 08-27-2023 08:36-0400 Diastolic blood pressure 62 mm[Hg] Annabel Goetz COLLECTION SYSTEMS CONSULTANT-COKE HANDLING SUPERVISOR Work Phone: [facility] 08-27-2023 08:36-0400 Heart rate 80 /min Annabel Goetz COLLECTION SYSTEMS CONSULTANT-COKE HANDLING SUPERVISOR Work Phone: [facility] 08-27-2023 08:36-0400 SaO2% (BldA) [Mass fraction] 95 % Annabel Goetz COLLECTION SYSTEMS CONSULTANT-COKE HANDLING SUPERVISOR Work Phone: [facility] 08-27-2023 08:36-0400 Systolic blood pressure 94 mm[Hg] Annabel Goetz VANCE Work Phone: [facility] 08-10-2023 08:43-0400 Body temperature 97.81 [degF] [facility] 08-10-2023 08:43-0400 Diastolic blood pressure 57 mm[Hg] [facility] 08-10-2023 08:43-0400 Heart rate 84 /min [facility] 08-10-2023 08:43-0400 SaO2% (BldA) [Mass fraction] 97 % [facility] 08-10-2023 08:43-0400 Systolic blood pressure 107 mm[Hg] [facility] Jakub [facility] 07-05-2023 17:18-0400 Body height 160 cm Randal Vital MD Work Phone: [facility] 07-05-2023 17:18-0400 Body mass index (BMI) [Ratio] 28.34 kg/m2 Randal Vital MD Work Phone: [facility] 07-05-2023 17:18-0400 Body weight 72.58 kg Randal Vital MD Work Phone: [facility] 07-05-2023 17:18-0400 Diastolic blood pressure 57 mm[Hg] Randal Vital MD Work Phone: [facility] 07-05-2023 17:18-0400 Heart rate 74 /min Randal Vital MD Work Phone: [facility] 07-05-2023 17:18-0400 Systolic blood pressure 96 mm[Hg] Randal Vital MD Work Phone: [facility] 05-23-2023 09:47-0400 Body height 159.8 cm Randal Vital MD Work Phone: [facility] 05-23-2023 09:47-0400 Body mass index (BMI) [Ratio] 31.22 kg/m2 Randal Vital MD Work Phone: [facility] 05-23-2023 09:47-0400 Body weight 79.7 kg Randal Vital MD Work Phone: 4(588)809-506670 [place] [address] 05-23-2023 09:47-0400 Diastolic blood pressure 62 mm[Hg] Randal Vital MD Work Phone: 2(215)596-947770 [place] [address] 05-23-2023 09:47-0400 Heart rate 78 /min Randal Vital MD Work Phone: 9(598)401-755370 [place] [address] 05-23-2023 09:47-0400 Respiratory rate 16 /min Randal Vital MD Work Phone: [facility] 05-23-2023 09:47-0400 SaO2% (BldA) [Mass fraction] 99 % Randal Vital MD Work Phone: [facility] 05-23-2023 09:47-0400 Systolic blood pressure 104 mm[Hg] Randal Vital MD Work Phone: 5(953)191-335870 [place] [address] 02-26-2023 13:27-0400 Body height 160 cm Randal Vital MD Work Phone: 6(613)979-914670 [place] [address] 02-26-2023 13:27-0400 Body mass index (BMI) [Ratio] 33.16 kg/m2 Randal Vital MD Work Phone: [facility] 02-26-2023 13:27-0400 Body weight 84.9 kg Randal Vital MD Work Phone: [facility] 02-26-2023 13:27-0400 Diastolic blood pressure 78 mm[Hg] Randal Vital MD Work Phone: [facility] 02-26-2023 13:27-0400 Systolic blood pressure 112 mm[Hg] Randal Vital MD Work Phone: [facility] 11-07-2022 16:13-0500 Body height 157.5 cm Randal Vital MD Work Phone: [facility] 11-07-2022 16:13-0500 Body mass index (BMI) [Ratio] 34.2 kg/m2 Randal Vital MD Work Phone: [facility] 11-07-2022 16:13-0500 Body weight 84.82 kg Randal Vital MD Work Phone: [facility] 11-07-2022 16:13-0500 Diastolic blood pressure 70 mm[Hg] Randal Vital MD Work Phone: [facility] 11-07-2022 16:13-0500 Heart rate 88 /min Randal Vital MD Work Phone: [facility] 11-07-2022 16:13-0500 Respiratory rate 18 /min Randal Vital MD Work Phone: [facility] 11-07-2022 16:13-0500 SaO2% (BldA) [Mass fraction] 98 % Randal Vital MD Work Phone: [facility] 11-07-2022 16:13-0500 Systolic blood pressure 102 mm[Hg] Randal Vital MD Work Phone: [facility] Encounters Encounter Date Encounter Type Care Provider Facility Start: 10-16-2023 End: 10-16-2023 Office outpatient visit 25 minutes Annabel Goetz COLLECTION SYSTEMS CONSULTANT-COKE HANDLING SUPERVISOR Work Phone: [facility] [place] Procedures Date Procedure Procedure Detail Performing Clinician Start: 08-30-2023 Assay of magnesium Will kenya Contreras MD Work Phone: Start: 08-30-2023 Hepatic function panel Tk Contreras MD Work Phone: Start: 08-29-2023 GENERAL PROCEDURE Ediliachriss Trent DO Work Phone: Start: 08-29-2023 End: 08-29-2023 Creatinine blood Marilia NEAL Work Phone: Start: 08-29-2023 End: 08-29-2023 TRANSFUSE OR PLASMA Allan Levin COLLECTION SYSTEMS CONSULTANT-C RNA Start: 08-29-2023 Bilirubin direct Wally Contreras MD Work Phone: Start: 08-28-2023 ABORH TYPE RECONFIRMATION Daniel May MD Work Phone: Start: 08-28-2023 End: 08-28-2023 Antibody screen Seth Hines MD, MPH Work Phone: Plan of Treatment Date Care Activity Detail Author Start: 10-16-2024 Potassium [Moles/volume] in Serum or Plasma POTASSIUM [facility] Start: 08-27-2024 Potassium [Moles/volume] in Serum or Plasma POTASSIUM [facility] Start: 08-10-2024 Potassium [Moles/volume] in Serum or Plasma POTASSIUM [facility] Start: 05-23-2024 Potassium [Moles/volume] in Serum or Plasma POTASSIUM [facility] Start: 02-27-2024 Potassium [Moles/volume] in Serum or Plasma POTASSIUM [facility] Start: 01-02-2024 End: 01-02-2024 Patient encounter procedure 01/02/2024 10:30 AM EST Office Visit [facility] [place] [address] [place] [address] Randal Vital MD [address] [place] [address] [facility] [place] Start: 12-28-2023 End: 10-16-2024 US Abdomen RUQ US ABDOMEN RUQ/LIVER/GB Imaging Routine 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 Expected: 12/28/2023 (Approximate), Expires: 10/16/2024 [facility] Immunizations Immunization Date Immunization Notes Care Provider Fa luceroty 05-23-2023 Pneumococcal Conjuga te 20-Valent Vaccine Randal Vital MD Work Phone: [facility] Social History Date Type Detail Facility Start: 11-07-2022 Tobacco smoking stat us VAIS Never smoked tobacco [facility] Start: 11-07-2022 Tobacco use and exposure Smokeless tobacco non-user [facility] Start: 11-07-2022 End: 10-16-2023 Alcohol intake Lifetime non-drinker (finding) [facility] Start: 1960 Sex Assigned At Not on file [facility] Start: 10-28-2022 End: 11-07-2022 Exposure to SARS-CoV-2 (event) Unable to assess [facility] Start: 05-23-2023 End: 10-16-2023 History of Social function [facility] Start: 05-23-2023 End: 10-16-2023 Tobacco use panel [facility] Clinical Notes 11-07-2022 to 10-16-2023 VANCE Cuellar [...] 63 y.o. female who presents to the [facility] today for follow-up. I have reviewed her medical, surgical, and social history and have updated medication and allergy information in the computerized patient record. Madhavi Avalos has a history of decompensated [facility] cirrhosis c/b refractory ascites despite diuretics and [...] Laterality: N/A; Surgeon: Amber Manuel MD; Location: [facility] INTERVENTIONAL RADIOLOGY (VIR) PARACENTESIS ABDOMINAL W/ IMAGING GUIDANCE N/A 08/29/2023 Laterality: N/A; Surgeon: Amber Manuel MD; Location: [facility] INTERVENTIONAL RADIOLOGY (VIR) ESOPHAGOSCOPY W/ LIGATION BAND [...] y.o. female with a history of decompensated [facility] cirrhosis c/b refractory ascites despite diuretics and [...] diuretic refractory ascites requiring weekly paracentesis. Plan [facility] Cirrhosis: MELD 3.0 16 from previous labs. [...] Division of Gastroenterology, Hepatology, & Nutrition [facility] This nurse used garage worker [id number]. This nurse verified pts name and . documented in this encounter [facility] 08-30-2023 History of Presen t illness Narrative Images from the original note were not included. [facility] Note: Bedside Delivery Documentation The following prescription(s) were delivered to the patient's bedside. Michelet Wrigth [facility] [phone] [facility] [phone] [facility] Bedside Delivery [phone] [facility] [phone] [facility] Bedside Delivery [phone] Jakub [phone] [facility] Bedside Delivery [phone] [place] [phone] [place] [phone] Images from the original note were not included. [facility] Note: Non-Verbal Med Rec [facility] received the following discharge prescription(s): Total cost is $0.00. I have reviewed the Discharge Rx Reconciliation Report. The discharge prescription(s) will be delivered to the patient on 08/30/2023. [facility] [phone] [facility] [phone] [facility] Bedside Delivery [phone] [facility] [phone] [facility] Bedside Delivery [phone] [facility] [phone] [facility] Bedside Delivery [phone] [place] [phone] [place] [phone] Final Discharge Planning and Transportation Final Discharge [...] contacted related to barriers Nadira Mauricio RN, CHEMICAL ETCH OPERATOR-S, ACM R 9 E Clinical Brazing Machine Operator Helper Telephone # available in Treatment team. Also available via Secure Chat. Acute Physical Therapy Evaluation Prior to Admission [facility] score(s): PRIOR LEVEL AM-PAC Mobility Raw Score: [...] agreeable to PT treatment with RN approval. Mongolian speaking- daughter present and assists with translation [...] intact Mobility Assessment: Supine to Sit Mobility Williams Level: Supine->Sit: modified independence Bed Features/Set-up: Supine->Sit: Head of bed elevated Skilled Rationale: Verbal cues, Initiation and execution of task Sit to Supine Mobility Williams Level: Sit->Supine: modified independence Bed Features/Set-up: Sit->Supine: [...] device Transfer Assessment: Sit to Stand Transfer Williams Level: Sit->Stand: stand-by assist Assistive Device: Sit->Stand: gait belt Skilled Rationale: Verbal cues, Initiation and execution of task Skilled Intervention/Details: Sit->Stand: X1 EOB Stand to Sit Transfer Williams Level: Stand->Sit: stand-by assist Assistive Device: Stand->Sit: gait belt Skilled Rationale: Sequencing, Hand placement, Verbal cues, Controlled descent for sitting Gait/Functional Mobility: Gait Assessment Williams Level: Gait: stand-by assist Assistive Device: Gait: [...] to optimize gait mechanics Stairs: Stairs Assessment Williams Level: Stair Negotiation: not tested Outcome Score(s): CURRENT [facility] Basic Mobility Inpatient Short Form Turning over in bed: 4 - No Assistance Sitting/standing from chair: 3 - A Little Assistance Moving from lying on back to sittin - No Assistance Moving to and from bed to chair: 3 - A Little Assistance Walk in hospital room: 3 - A Little Assistance Climbing 3-5 steps with a railin - A Little Assistance CURRENT [facility] Mobility Raw Score: 20 CURRENT [facility] Mobility Functional Limitation/Modifier: 35.83% Currently Impaired in [...] Edema: Mobility Assessment: Supine to Sit Mobility Williams Level: Supine->Sit: supervision Bed Features/Set-up: Supine->Sit: Head of bed elevated Sit to Supine Mobility Williams Level: Sit->Supine: supervision Bed Features/Set-up: Sit->Supine: Head of bed elevated Transfer Assessment: Sit to Stand Transfer Williams Level: Sit->Stand: stand-by assist Assistive Device: Sit->Stand: 2 wheeled walker Skilled Rationale: Cues for increased safety, Full extension to upright positioning/posture Stand to Sit Transfer Williams Level: Stand->Sit: stand-by assist Assistive Device: Stand->Sit: 2 wheeled walker Functional Mobility: Functional Mobility Williams Level: Functional Mobility/Gait: stand-by assist Assistive Device: Functional Mobility/Gait: 2 wheeled walker Functional Mobility Distance: Distance needed for common household mobility Functional Mobility Deficits: Activity tolerance, Balance, Generalized weakness, Slowed gait speed Functional Mobility Skilled Rationale: Cues for increased safety, Walker management/safety Skilled Intervention/Details - Functional Mobility/Gait: Min cueing for safety, navigation around environmental hazards Outcome Score(s): CURRENT [facility] Daily Activity Inpatient Short Form Putting on/Taking Off Lower Body Clothin - A Little Assistance Bathin - A Little Assistance Toiletin - A Little Assistance Putting on/Taking Off Upper Body Clothin - A Little Assistance Groomin - A Little Assistance Eatin - No Assistance CURRENT [facility] Activity Raw Score: 19 CURRENT [facility] Activity Functional Limitation/Modifier: 42.80% Currently Impaired in Daily Activity - CK Interventions: Assessment & Plan: [facility] and seen for therapy [...] Daily Progress Note Patient: Madhavi Avalos, 1960, [id number] Physician: Tk Contreras MD, Hepatology Service Assessment/Plan: Madhavi Avalos is a 63 y.o. female with a history of decompensated [facility] cirrhosis c/b refractory ascites despite diuretics and weekly paracentesis, EV s/p EBL. Admitted for a planned TIPS on 08/29/2023. [facility] Cirrhosis S/p attempted TIPS procedure MELD 3.0: [...] to discuss her case with the attending cryolite recovery operator, what the next steps would be, and [...] is here for planned TIPS procedure. Qualified garage worker was present as primary garage worker to interpret during the following: admission. The primary garage worker resource was qualified telephonic garage worker: ID # [id number] Initial Discharge Planning Anticipated discharge disposition: Home [...] none Legal Next of Kin: Brent Stone [phone] 2. daughter Fara Neville [phone] Financial Resources Insurance: No Prescription Coverage: No [...] planning and care coordination. Nadira Mauricio RN, CHEMICAL ETCH OPERATOR-S, ACM R 9 E Clinical Brazing Machine Operator Helper Telephone # available in Treatment team. Also available via Secure Chat. documented in this encounter [facility] 08-30-2023 Nurse Note Handout in Mongolian on cirrhosis/low salt diet given to patient and family prior to discharge today. Pt scheduled for hospital follow up with Annabel Goetz NP on 10/16/23. [facility] 08-30-2023 Miscellaneous Notes Handout in Mongolian on cirrhosis/low salt diet given to patient [...] to home. Madhavi Avalos was admitted to [facility] from home. The patient reported all personal [...] the car documented in this encounter [facility] 08-30-2023 Hospital Discharg e instructions Tk Contreras [...] note that you should obtain refills from [facility] using GoodRx coupons to get these medications [...] Care Everywhere.Torsemide Oral Tablet (TORSEMIDE - ORAL) (Mongolian)documented in this encounter [facility] 08-30-2023 Hospital course Narrative Discharge Summary Name: [...] during her recent hospital stay at [facility]. As you may know, Madhavi Avalos [...] providers found Division of Hospital Medicine p: [phone] f: [phone] CONSULTS DURING ADMISSION: IP CONSULT TO PHYSICAL THERAPY IP CONSULT TO OCCUPATIONAL THERAPY IP CONSULT TO PHARMACY MEDICATION ASSISTANCE IP CONSULT TO PHARMACY BEDSIDE DISCHARGE MED DELIVERY IMAGING / PROCEDURES / RESULTS: PERCUTANEOUS TRANSHEPATIC PORTAL VEIN-IP ONLY ABDOMINAL PARACENTESIS Should you require further information or copies of results or reports please contact Medical Information Management @ [phone] LABS AT TIME OF DISCHARGE: Lab Results [...] the patient was directed to go to [employer] for discounted medications PATIENT'S MEDICAL HOME AT DISCHARGE: Darlene Garibay [address] [place] / [place] [id number] MEDICATIONS: Medication List for when you go [...] Dept Phone 09/11/2023 1:00 PM Ken Garcia [facility] Arrive at: Arrive to Outpatient Surgery Center Registration [phone] 10/16/2023 11:30 AM Annabel Goetz [facility] [place] Arrive at: Arrive to 1st Floor Registration [phone] 01/02/2024 10:30 AM aRndal Vital [facility] [place] Arrive at: Arrive to 1st Floor Registration [phone] Associated attestation - Seth Hines MD, MPH [...] home and will follow-up with her primary cryolite recovery operator regarding next steps. Diuretics adjusted as follows: Lasix discontinued and started on torsemide 20mg bid. Home Aldactone continued. Midodrine increased to 15mg tid from 10mg tid to assist with hypotension. MELD 3.0 16. documented in this encounter [facility] 08-30-2023 Plan of care note Problem: PT [...] ROM, necessary for functional mobility. Outcome: Ongoing [facility] 08-30-2023 Plan of care note Problem: OT [...] to safely complete toileting. Outcome: Ongoing T [facility] 08-30-2023 Plan of care note Problem: Patient [...] active listening utilized verbalization of feelings encouraged [facility] 08-29-2023 Plan of care note Problem: Patient [...] Acute/Chronic (Adult) CPG). Outcome: Progressing Toward Goal [facility] 08-29-2023 Note Amber Manuel MD 3:32 PM [...] PGY-6 Toma Trent DO 08/29/2023 1:28 PM GENERAL ACCOUNTANT(S): Amber Manuel MD (Attending); Toma Trent DO (Resident) CONSENT: Informed consent was obtained prior to the procedure after discussion of the risks, benefits, and alternatives of the procedure, and expected procedure outcomes were discussed with the patient and/or member service representative. The consent document was placed in chart. DID THIS PROCEDURE REQUIRE A UNIVERSAL PROTOCOL?: Yes. [place] Protocol is required. Preprocedure verification is complete. [...] Radiology to participate in this patient's care. [facility] 08-29-2023 Nurse Note Interventional Radiology TIPSS procedure [...] of clear yellow ascites removed during paracentesis. [facility] 08-28-2023 Plan of care note Problem: Patient Care Overview Goal: Plan of Care Review Outcome: Ongoing Goal: Individualization & Mutuality Outcome: Ongoing Goal: Discharge Needs Assessment Outcome: Ongoing Goal: Interdisciplinary Rounds/Family Conf Outcome: Ongoing [facility] 08-28-2023 Progress note Formatting of t his note might be different from the original. I certify that this patient requires inpatient services at this time. I anticipate the expected length of stay will include at least two midnights. Inpatient services are due to the following medical concerns TIPS. Plans for post hospitalization care will be discharge to home. [facility] 08-28-2023 History and physical note Internal Medicine Admission History & Physical Patient: Madhavi Neville Robbie, 1960, [id number] Physician: Tk Contreras MD, PGY1, Hepatology Service Date of face to face patient encounter: 08/28/2023. Chief Complaint: Planned Admission for TIPS History Of Present Illness: Madhavi Avalos is a 63 y.o. female with a history of decompensated [facility] cirrhosis c/b refractory ascites despite diuretics and [...] chills, cough, melena, hematochezia, or hematemesis. Primary Epic Kaleidoscope Analyst Dr. Vital Etiology of Liver Disease [facility] cirrhosis MELD MELD 3.0: 14 at 08/28/2023 [...] erythema Skin: No jaundice or rash Neuro: barrelhead inspector 3-7, 9-11 intact and equal. Strength grossly [...] planned for 08/29/23. MELD 3.0 14. [facility] 08-28-2023 History and physical note Internal Medicine Admission History & Physical Patient: Madhavi Avalos, 1960, [id number] Physician: Tk Contreras MD, PGY1, Hepatology Service Date of face to face patient encounter: 08/28/2023. Chief Complaint: Planned Admission for TIPS History Of Present Illness: Madhavi Avalos is a 63 y.o. female with a history of decompensated [facility] cirrhosis c/b refractory ascites despite diuretics and [...] chills, cough, melena, hematochezia, or hematemesis. Primary Epic Kaleidoscope Analyst Dr. iVtal Etiology of Liver Disease [facility] cirrhosis MELD MELD 3.0: 14 at 08/28/2023 [...] erythema Skin: No jaundice or rash Neuro: barrelhead inspector 3-7, 9-11 intact and equal. Strength grossly [...] Ms. Avalos has a history of decompensated [facility] cirrhosis with refractory ascites admitted for planned TIPS. CT abdomen and ECHO findings reviewed; of note RSVP was unable to be estimated on ECHO. TIPS planned for 08/29/23. MELD 3.0 14. documented in this encounter [facility] 08-28-2023 Nurse Note Madhavi Avalos was admitted to [facility] from home. The patient reported all personal [...] Dr. Contreras notified of the patient's arrival. [facility] 08-28-2023 Nurse Note Patient arrived from home with family member. Dr. Contreras notified of arrival. [facility] 08-28-2023 Progress note Formatting of t his note might be different from the original. 08/28/2023 Notified room Ready @ 11:16 AM spoke to pt, will arrive to admitting @ now, pt is parking the car [facility] 08-27-2023 History of Presen t illness Narrative [...] Adequate hemostasis achieved. documented in this encounter [facility] 08-27-2023 History of Presen t illness Narrative CLINICAL CARE TEAM: -Referring Provider for today's consult: Self, Self -Primary Care Provider: Darlene Garibay HISTORY OF PRESENT ILLNESS: Madhavi Avalos is a 63 y.o. female who presents to the [facility] today for follow-up. I have reviewed her medical, surgical, and social history and have updated medication and allergy information in the computerized patient record. Madhavi Avalos has a history of decompensated [facility] cirrhosis c/b refractory ascites despite diuretics and [...] y.o. female with a history of decompensated [facility] cirrhosis c/b refractory ascites despite diuretics and weekly paracentesis, EV s/p EBL. She will be admitted tomorrow for planned TIPS on 08/29 Plan [facility] Cirrhosis: MELD 3.0 14 from previous labs. [...] Division of Gastroenterology, Hepatology, & Nutrition [facility] This nurse verified pts name and . documented in this encounter [facility] 08-10-2023 History of Presen t illness Narrative Met with patient(only speaks Mongolian) and daughter (declined garage worker for me but garage worker phone available and used for ADRIANO and Doctor) in IR clinic today to discuss TIPS, reviewed patient medication list, allergies, and day of instructions for procedure. Pt gets weekly paracentesis at [facility] for last year. She was drained yesterday for 6.4 liters. Handouts given Patient verbalized understanding of all covered information. Patient will be scheduled for procedure with IR dry pan feeder. Pt sent to get labs and will need ECHO before procedure. documented in this encounter [facility] 08-10-2023 Instructions Haile Hammond - 08/10/2023 8:40 AM EDT INFORMATION REGARDING YOUR INTERVENTIONAL RADIOLOGY APPOINTMENT FOR PROCEDURE: Transjugular Intrahepatic Portosystemic Shunt (TIPS) with Dr Manuel DATE: 08/29/23. ARRIVAL TIME: 1:00pm on 08/28/23. CHECK IN: Admitting Office, [address] [place] [address], at the [facility] at the [facility], [address] [place] [address]. It is important to arrive on time [...] your appointment, please call our office at [phone] opt 1 at least 24 hours in [...] park in the hospital garages in the [facility] [address] [place] [address] or [employer]. [employer] parking is available for $10 (tiwari only) at the main entrance of the [facility]. Plan on being here approximately 3-5 [...] Radiology procedure. documented in this encounter [facility] 05-23-2023 History of Presen t illness Narrative [...] ASSESSMENT/PLAN: Madhavi Avalos is a 62 y.o. [facility] female with what appears to be decompensated HARRISON cirrhosis, who comes to the clinic today for a LT evaluation and for further management pts cell [phone] 1. Decompensated cirrhosis: - Etiology: NAFLD/HARRISON - [...] to clinic in 3 months Randal NEAL Restorative Care Technician in Clinical Medicine Department of Internal medicine Pager:[phone] This nurse used garage worker [phone]. This nurse verified pts name and . [...] a wait list. documented in this encounter [facility] 05-23-2023 Instructions Randal Vital MD - 05/23/2023 [...] resistance training documented in this encounter [facility] 11-07-2022 History of Presen t illness Narrative Images from the original note were not included. Division of Gastroenterology, Hepatology and Nutrition HEP OP NOTE: HEPATOLOGY OUTPATIENT NOTE PRIMARY CARE PHYSICIAN: No primary care provider on file. REFERRING PROVIDER: Damian Estrada DO [address] [place] [phone] HEPATOLOGY/GI DIAGNOSIS: 1. Decompensated cirrhosis from HARRISON- [...] ILLNESS: Madhavi Avalos is a 62 y.o. [facility] female with what appears to be decompensated [...] ASSESSMENT/PLAN: Madhavi Avalos is a 62 y.o. [facility] female with what appears to be decompensated [...] Return to clinic in 3 Randal NEAL Restorative Care Technician in Clinical Medicine Department of Internal medicine Pager:[phone] This PHOTOGRAPHIC DEVELOPER AND PRINTER verified patient's name and through cable armorer operator #[id number]. documented in this encounter [facility] 11-07-2022 Instructions Randal Vital MD - 11/07/2022 [...] or resistance training documented in this encounter [facility] Diagnosis Decompensated hepatic cirrhosis [facility] Diagnosis Decompensated hepatic cirrhosis- Primary [facility] Diagnosis Other ascites [facility] Diagnosis Other ascites- Primary Other cirrhosis of liver Other ascites Other cirrhosis of liver Other ascites Other cirrhosis of liver [facility] Diagnosis Other ascites Other cirrhosis of liver Decompensated hepatic cirrhosis- Primary Other ascites Other cirrhosis of liver [facility] Diagnosis Other ascites Other ascites Other cirrhosis of liver [facility] Diagnosis Other ascites Other cirrhosis of liver Decompensated hepatic cirrhosis 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 [facility] Diagnosis 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- Primary Other chronic nonalcoholic liver disease documented in this encounter [facility] Reason for Referral Specialty Diagnoses / Procedures Referred By Dorian romero Referred To Contact Echocardiography Diagnoses Decompensated hepatic cirrhosis Procedures ECHOCARDIOGRAM NM ECHO HEART XTHORACIC,COMPLETE W DOPPLER Randal Vital MD [address] [facility] [address] [place] [phone] E[address]ocardiography [address] [place] [address] Referral ID Status Reason Start Date Expiration Date Visits Re quested Visits Authorized [id number] Closed 02/13/2023 03/09/2024 1 1 Specialty Diagnoses / Procedures Referred By Dorian romero Referred To Contact Diagnoses Decompensated hepatic cirrhosis Procedures US ABDOMEN RUQ/LIVER/GB Randal Vital MD [address] [place] [address] Referral ID Status Reason Start Date Expiration Date V isits Requested Visits Authorized [id number] New Request 05/23/2023 06/16/2024 1 1 Specialty Diagnoses / Procedures Referred By Contac t Referred To Contact Diagnoses Decompensated hepatic cirrhosis Procedures INTERVENTIONAL UPPER ENDOSCOPY INTERVENTIONAL UPPER ENDOSCOPY NM ESOPHAGOGASTRODUODENOSCOPY TRANSORAL DIAGNOSTIC Randal Vital MD [address] [place] [address] Referral ID Status Reason Start Date Expiration Date V isits Requested Visits Authorized [id number] New Request 05/23/2023 06/16/2024 1 1 Specialty Diagnoses / Procedures Referred By Contac t Referred To Contact Diagnoses Other ascites Procedures CT ABDOMEN/PELVIS WITH CONTRAST CHG CT SCAN,ABDOMENT AND PELVIS,W CONTRAST Randal Vital MD [address] [place] [phone] Referral ID Status Reason Start Date Expiration Date V isits Requested Visits Authorized [id number] New Request 06/20/2023 07/14/2024 1 1 Specialty Diagnoses / Procedures Referred By Contac t Referred To Contact Diagnoses Other ascites Other cirrhosis of liver Procedures CASE REQUEST DEPARTMENT USE ONLY INTERVENTIONAL RADIOLOGY Haile Maldonado, COLLECTION SYSTEMS CONSULTANT-COKE HANDLING SUPERVISOR [address] [place] [address] Referral ID Status Reason Start Date Expiration Date V isits Requested Visits Authorized [id number] New Request 08/10/2023 09/03/2024 1 1 Specialty Diagnoses / Procedures Referred By Contac t Referred To Contact Diagnoses Other ascites Procedures ECHOCARDIOGRAM NM ECHO HEART XTHORACIC,COMPLETE W DOPPLER Haile Maldonado, COLLECTION SYSTEMS CONSULTANT-COKE HANDLING SUPERVISOR [address] [place] [address] Referral ID Status Reason Start Date Expiration Date V isits Requested Visits Authorized [id number] New Request 08/10/2023 09/03/2024 1 1 Specialty Diagnoses / Procedures Referred By Contac t Referred To Contact Echocardiography Diagnoses Other ascites Procedures ECHOCARDIOGRAM NM ECHO HEART XTHORACIC,COMPLETE W DOPPLER Haile Maldonado, COLLECTION SYSTEMS CONSULTANT-COKE HANDLING SUPERVISOR [address] [place] [address] Echocardiography [place] [address] [place] [address] Referral ID Status Reason Start Date Expiration Date Visits Re quested Visits Authorized [id number] Closed 08/10/2023 09/03/2024 1 1 Specialty Diagnoses / Procedures Referred By Contac t Referred To Contact Procedures DVT/VTE RISK ASSESSMENT Seth Hines MD, MPH [address] [place] [address] Referral ID Status Reason Start Date Expiration Date V isits Requested Visits Authorized [id number] New Request 08/28/2023 09/21/2024 1 1 Specialty Diagnoses / Procedures Referred By Contac t Referred To Contact Diagnoses 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 Procedures US ABDOMEN RUQ/LIVER/GB Annabel Goetz APRN-COKE HANDLING SUPERVISOR [address] [place] [address] Referral ID Status Reason Start Date Expiration Date V isits Requested Visits Authorized [id number] New Request 10/16/2023 11/09/2024 1 1 Advance [...] HARRISON FriendDamian, [address] [place] [address] Referral ID Status Reason Start Date Expiration Date V isits Requested Visits Authorized [id number] New Request 03/17/2022 04/11/2023 1 1 Specialty Diagnoses / Procedures Referred By Contac t Referred To Contact Echocardiography Diagnoses Decompensated hepatic cirrhosis Procedures ECHOCARDIOGRAM NM ECHO HEART XTHORACIC,COMPLETE W DOPPLER Randal Vital MD [address] [place] [address] Echocardiography [place] [address] [place] [address] Referral ID Status Reason Start Date Expiration Date Visits Re quested Visits Authorized [id number] Closed 02/13/2023 03/09/2024 1 1 Reason Comments Follow-up Specialty Diagnoses / Procedures Referred By Contac t Referred To Contact Diagnoses Other ascites Procedures CT ABDOMEN/PELVIS WITH CONTRAST CHG CT SCAN,ABDOMENT AND PELVIS,W CONTRAST Randal Vital MD [address] [place] [address] Referral ID Status Reason Start Date Expiration Date V isits Requested Visits Authorized [id number] New Request 06/20/2023 07/14/2024 1 1 Reason Comments Consult Specialty Diagnoses / Procedures Referred By Contac t Referred To Contact Interventional Radiology Diagnoses Decompensated hepatic cirrhosis Randal Vital MD [address] [facility] [address] [place] [phone] Referral ID Status Reason Start Date Expiration Date V isits Requested Visits Authorized [id number] New Request 06/18/2023 07/12/2024 1 1 Reason Comments Follow-up Concerns with throat Specialty Diagnoses / Procedures Referred By Contac t Referred To Contact Echocardiography Diagnoses Other ascites Procedures ECHOCARDIOGRAM NM ECHO HEART XTHORACIC,COMPLETE W DOPPLER Haile Maldonado, COLLECTION SYSTEMS CONSULTANT-COKE HANDLING SUPERVISOR [address] [place] [address] Echocardiography [place] [address] [facility] [address] [place] [address] Referral ID Status Reason Start Date Expiration Date Visits Re quested Visits Authorized [id number] Closed 08/10/2023 09/03/2024 1 1 Specialty Diagnoses / Procedures Referred By Contac t Referred To Contact Diagnoses Other ascites Other cirrhosis of liver Other ascites [R18.8] Other cirrhosis of liver [K74.69] Procedures NM INSERT TRANSVEN INTRAHEP PORTOSYS SHUNT NM ABDOM PARACENTESIS DX/THER W IMAGING GUIDANCE INSERTION SHUNT TRANSVENOUS INTRAHEPATIC PORTOSYSTEMIC PERCUTANEOUS (TIPS) PARACENTESIS ABDOMINAL W/ IMAGING GUIDANCE Seth Hines MD, MPH [address] [address] [facility] [address] [place] [address] Referral ID Status Reason Start Date Expiration Date Visits Re quested Visits Authorized [id number] 1 1 Reason Comments Post-Discharge Follow Up Care Teams (unrecognized sec tion and content) Rail Switchman Relationship Specialty Start Date End Date Darlene Garibay MD [address] [address] PCP - General Family Medicine 05/23/23 Rail Switchman Relationship Specialty Start Date End Date Darlene Garibay MD [address] [place] [address] PCP - General Family Medicine 05/23/23 Rail Switchman Relationship Specialty Start Date End Date Darlene Garibay MD [address] [place] [place] [address] PCP - General Family Medicine 05/23/23 Rail Switchman Relationship Specialty Start Date End Date Darlene Garibay MD [address] [place] [address] PCP - General Family Medicine 05/23/23 Scheduled Active and Recently Administ ered Medications (unrecognized section and content) Continuous Medication Order 08/28/2023 08/29/2023 08/30/2023 albumin human 5 % injection 25 g 25 g, Intravenous, CONTINUOUS, Starting on Sun08/29/23 at 0700, Until Sun08/30/23 at 1842, Indications: Fluid Resuscitation, Intra-op/Intra-Proc 0946 (Given - Provider: VALENTÍN GrullonSYSTEM ADMINISTRATION MANAGER) PRN Medication Order 08/28/2023 08/29/2023 08/30/2023 Acetaminophen [...] 3 g, Intravenous, Administer over 30 Minutes, DIE REAMER TO PROCEDURE, 1 dose, Starting on Sun08/29/23 [...] BE BASED ON THE PRIMARY CLINICAL RECORDS. [facility] My 1% [facility]. provides no warranty or guarantee of the accuracy or completeness of information in this document.
[2023-11-15 13:15] VITALS: BP 105/56; PULSE 75; RESP 18; O2SAT 99
[2023-11-15 13:25] VITALS: BP 99/58; PULSE 73; RESP 18; TEMP 36.6; O2SAT 99
--- NOTE | 2023-11-15 13:37 | PCM.OP.PRO ---
Procedure Report Date of Procedure: 11/15/23 Assessment & Plan Assessment/Plan (1) Abdominal ascites: QUALIFIERS: Ascites type: other type Qualified Code(s): R18.8 - Other ascites PLAN: PROCEDURE: Ultrasound guided paracentesis ORDERING PROVIDER: Dr. Estrada INDICATION: Female, 63 years old. Ascites. PROVIDER: VANCE Painting TECHNIQUE: The risks, benefits, and alternatives to the procedure were explained to the patient and daughter. The specific risks of bleeding, infection, and damage to bowel were detailed and accepted. Witnessed informed consent was obtained. The abdomen was ultrasonographically surveyed. An appropriate pocket of fluid was identified in the left lower quadrant. The skin was prepped with chlorhexidine and sterile field established. 2% lidocaine was used for local anesthetic. Using ultrasound guidance, the peritoneal cavity was accessed with a 5-Hungarian paracentesis needle/catheter system. The trocar was removed. A total of 5000 ml of clear yellow colored fluid was removed from the peritoneal cavity. The catheter was removed and a sterile dressing was applied. The procedure was well tolerated. IMPRESSION: Successful ultrasound-guided paracentesis with left lower quadrant access site. Procedures Radiology Radiology US Procedures: 16962 Paracentesis
== END | disposition home or self-care (01) ==
PROVIDERS: PCP Family Medicine; Referring Provider Internal Medicine Gastroenterology; Visit Provider Internal Medicine Gastroenterology
DX: K75.81 Nonalcoholic steatohepatitis (NASH) (principal)
CPT/HCPCS: 49083

== ENCOUNTER → 2023-11-22 | Outpatient (CLI) | payer SELFPAY ==
--- OUTSIDE RECORDS SUMMARY | 2023-11-22 10:32 | XMS RPT_ITS | CCD ---
Author Name Unknown Address [address] [place] [address] Organization [facility] Care Team Providers Care Vegetable Tier Name Role Phone Unavailable Primary Care Provider Unavailjairo Garibay MD, Loleta Primary Care Provider AARON LYNNDYL Primary Care Unavailable HAILE MALDONADO Attending Unavailable HAILE MALDONADO Referring Unavailable NEPTALI, CHATHUR Referring Unavailable NEPTALI, CHATHUR Referring Unavailable SETH HINES Admitting Unavailable SETH HINES Attending Unavailable [facility] Primary Care Unavailable SELF, SELF Referring Unavailable ANNABEL GOETZ Attending Unavailable [facility] Primary Care Unavailable ANNABEL GOETZ Attending Unavailable [facility] Primary Care Unavailable SELF, SELF Referring Unavailable [facility] Primary Care Unavailable NEPTALI, CHATHUR Referring Unavailable [facility] Primary Care Unavailable MANUEL AMBER Attending Unavailable NEPTALI, CHATHUR Referring Unavailable NEPTALI, CHATHUR Attending Unavailable [facility] Primary Care Unavailable NEPTALI, CHATHUR Attending Unavailable SELF, SELF Referring Unavailable SELF, SELF Referring Unavailable NEPTALI, CHATHUR Attending Unavailable NEPTALI, CHATHUR Referring Unavailable NEPTALI, CHATHUR Attending Unavailable NEPTALI, CHATHUR Attending Unavailable [facility] Primary Care Unavailable SELF, SELF Referring Unavailable SELF, SELF Referring Unavailable NEPTALI, CHATHUR Attending Unavailable SELF, SELF Referring Unavailable BUTNARIUKEN I Attending Unavailable NEPTALI, CHATHUR [facility] Care Unavailable SELF, SELF Referring Unavailable [...] Acetaminophen (TYLENOL) tablet 650 mg Albumin Human, SKILLED NURSING (2 sources) Human Serum Albumin Start: 08-29-2023 [...] [Ratio] 31.91 kg/m2 Annabel WOODARD Work Phone: [facility] 10-16-2023 10:59-0500 Body weight 76.61 kg Annabel WOODARD Work Phone: [facility] 10-16-2023 10:59-0500 Diastolic blood pressure 58 mm[Hg] Annabel WOODARD Work Phone: [facility] 10-16-2023 10:59-0500 Heart rate 103 /min Annabel WOODARD Work Phone: [facility] 10-16-2023 10:59-0500 SaO2% (BldA) [Mass fraction] 98 % Annabel WOODARD Work Phone: [facility] 10-16-2023 10:59-0500 Systolic blood pressure 98 mm[Hg] Annabel Goetz MIMEOGRAPH OPERATOR-BUTT PRESSER Work Phone: [facility] 08-30-2023 13:44-0400 Body temperature 97.39 [degF] Seth Hines MD, MPH Work Phone: [facility] 08-30-2023 13:44-0400 Diastolic blood pressure 52 mm[Hg] Seth Hines MD, MPH Work Phone: [facility] 08-30-2023 13:44-0400 Heart rate 65 /min Seth Hines MD, MPH Work Phone: [facility] 08-30-2023 13:44-0400 Respiratory rate 16 /min Seth Hines MD, MPH Work Phone: [facility] 08-30-2023 13:44-0400 SaO2% (BldA) [Mass fraction] 97 % Seth Hines MD, MPH Work Phone: [facility] 08-30-2023 13:44-0400 Systolic blood pressure 95 mm[Hg] Seth Hines MD, MPH Work Phone: [facility] 08-28-2023 11:49-0400 Body height 154.9 cm Seth Hines MD, MPH Work Phone: [facility] 08-28-2023 11:49-0400 Body mass index (BMI) [Ratio] 32.9 kg/m2 Seth Hines MD, MPH Work Phone: [facility] 08-28-2023 11:49-0400 Body weight 78.97 kg Seth Hines MD, MPH Work Phone: [facility] 08-27-2023 13:10-0400 Body height 160 cm Haile Maldonado MIMEOGRAPH OPERATOR-BUTT PRESSER Work Phone: [facility] 10-30-2023 13:10-0400 Body mass index (BMI) [Ratio] 30.47 kg/m2 Haile Erica MIMEOGRAPH OPERATOR-BUTT PRESSER Work Phone: [facility] 08-27-2023 13:10-0400 Body weight 78 kg Haile Erica MIMEOGRAPH OPERATOR-BUTT PRESSER Work Phone: [facility] 08-27-2023 13:10-0400 Diastolic blood pressure 62 mm[Hg] Haile Maldonado MIMEOGRAPH OPERATOR-BUTT PRESSER Work Phone: [facility] 08-27-2023 13:10-0400 Heart rate 80 /min Haile Maldonado MIMEOGRAPH OPERATOR-BUTT PRESSER Work Phone: 4([phone] [place] [address] 08-27-2023 13:10-0400 Systolic blood pressure 94 mm[Hg] Haile Maldonado MIMEOGRAPH OPERATOR-BUTT PRESSER Work Phone: 9(845)[phone] [place] [address] 08-27-2023 08:36-0400 Body height 160 cm Annabel Goetz MIMEOGRAPH OPERATOR-BUTT PRESSER Work Phone: [facility] 08-27-2023 08:36-0400 Body mass index (BMI) [Ratio] 30.47 kg/m2 Annabel Goetz MIMEOGRAPH OPERATOR-BUTT PRESSER Work Phone: [facility] 08-27-2023 08:36-0400 Body weight 78.02 kg Annabel Goetz MIMEOGRAPH OPERATOR-BUTT PRESSER Work Phone: [facility] 08-27-2023 08:36-0400 Diastolic blood pressure 62 mm[Hg] Annabel Goetz MIMEOGRAPH OPERATOR-BUTT PRESSER Work Phone: [facility] 08-27-2023 08:36-0400 Heart rate 80 /min Annabel Goetz MIMEOGRAPH OPERATOR-BUTT PRESSER Work Phone: [facility] 08-27-2023 08:36-0400 SaO2% (BldA) [Mass fraction] 95 % Annabel Goetz MIMEOGRAPH OPERATOR-BUTT PRESSER Work Phone: [facility] 08-27-2023 08:36-0400 Systolic blood pressure 94 mm[Hg] Annabel Goetz VANCE Work Phone: [facility] 08-10-2023 08:43-0400 Body temperature 97.81 [degF] [facility] 08-10-2023 08:43-0400 Diastolic blood pressure 57 mm[Hg] [facility] 08-10-2023 08:43-0400 Heart rate 84 /min [facility] 08-10-2023 08:43-0400 SaO2% (BldA) [Mass fraction] 97 % [facility] 08-10-2023 08:43-0400 Systolic blood pressure 107 mm[Hg] [facility] Jakub [facility] 07-05-2023 17:18-0400 Body height 160 cm Randal Vital MD Work Phone: [facility] 07-05-2023 17:18-0400 Body mass index (BMI) [Ratio] 28.34 kg/m2 Randal Vital MD Work Phone: [facility] 07-05-2023 17:18-0400 Body weight 72.58 kg Randal Vital MD Work Phone: [facility] 07-05-2023 17:18-0400 Diastolic blood pressure 57 mm[Hg] Randal Vital MD Work Phone: [facility] 07-05-2023 17:18-0400 Heart rate 74 /min Randal Vital MD Work Phone: [facility] 07-05-2023 17:18-0400 Systolic blood pressure 96 mm[Hg] Randal Vital MD Work Phone: [facility] 05-23-2023 09:47-0400 Body height 159.8 cm Randal Vital MD Work Phone: [facility] 05-23-2023 09:47-0400 Body mass index (BMI) [Ratio] 31.22 kg/m2 Randal Vital MD Work Phone: [facility] 05-23-2023 09:47-0400 Body weight 79.7 kg Randal Vital MD Work Phone: 5(018)[phone] [place] [address] 05-23-2023 09:47-0400 Diastolic blood pressure 62 mm[Hg] Randal Vital MD Work Phone: 8(203)[phone] [place] [address] 05-23-2023 09:47-0400 Heart rate 78 /min Randal Vital MD Work Phone: 5(316)[phone] [place] [address] 05-23-2023 09:47-0400 Respiratory rate 16 /min Randal Vital MD Work Phone: [facility] 05-23-2023 09:47-0400 SaO2% (BldA) [Mass fraction] 99 % Randal Vital MD Work Phone: [facility] 05-23-2023 09:47-0400 Systolic blood pressure 104 mm[Hg] Randal Vital MD Work Phone: 3(596)[phone] [place] [address] 02-26-2023 13:27-0400 Body height 160 cm Randal Vital MD Work Phone: 9(264)[phone] [place] [address] 02-26-2023 13:27-0400 Body mass index (BMI) [Ratio] 33.16 kg/m2 Randal Vital MD Work Phone: [facility] 02-26-2023 13:27-0400 Body weight 84.9 kg Randal Vital MD Work Phone: [facility] 02-26-2023 13:27-0400 Diastolic blood pressure 78 mm[Hg] Randal Vital MD Work Phone: [facility] 02-26-2023 13:27-0400 Systolic blood pressure 112 mm[Hg] Randal Vital MD Work Phone: [facility] 11-07-2022 16:13-0500 Body height 157.5 cm Randal Vital MD Work Phone: [facility] 11-07-2022 16:13-0500 Body mass index (BMI) [Ratio] 34.2 kg/m2 Randal Vital MD Work Phone: [facility] 11-07-2022 16:13-0500 Body weight 84.82 kg Randal Vital MD Work Phone: [facility] 11-07-2022 16:13-0500 Diastolic blood pressure 70 mm[Hg] Randal Vital MD Work Phone: [facility] 11-07-2022 16:13-0500 Heart rate 88 /min Randal Vital MD Work Phone: [facility] 11-07-2022 16:13-0500 Respiratory rate 18 /min Randal Vital MD Work Phone: [facility] 11-07-2022 16:13-0500 SaO2% (BldA) [Mass fraction] 98 % Randal Vital MD Work Phone: [facility] 11-07-2022 16:13-0500 Systolic blood pressure 102 mm[Hg] Rnadal Vital MD Work Phone: [facility] Encounters Encounter Date Encounter Type Care Provider Facility Start: 10-16-2023 End: 10-16-2023 Office outpatient visit 25 minutes Annabel Goetz MIMEOGRAPH OPERATOR-BUTT PRESSER Work Phone: [facility] [place] Procedures Date Procedure Procedure Detail Performing Clinician Start: 08-30-2023 Assay of magnesium Will kenya Contreras MD Work Phone: Start: 08-30-2023 Hepatic function panel Tk Contreras MD Work Phone: Start: 08-29-2023 GENERAL PROCEDURE Ediliachriss Trent DO Work Phone: Start: 08-29-2023 End: 08-29-2023 Creatinine blood Marilia NEAL Work Phone: Start: 08-29-2023 End: 08-29-2023 TRANSFUSE OR PLASMA Allan Levin MIMEOGRAPH OPERATOR-C RNA Start: 08-29-2023 Bilirubin direct Wally Contreras MD Work Phone: Start: 08-28-2023 ABORH TYPE RECONFIRMATION Daniel May MD Work Phone: Start: 08-28-2023 End: 08-28-2023 Antibody screen Seth Hines MD, MPH Work Phone: Plan of Treatment Date Care Activity Detail Author Start: 10-16-2024 Potassium [Moles/volume] in Serum or Plasma POTASSIUM [facility] Start: 08-27-2024 Potassium [Moles/volume] in Serum or Plasma POTASSIUM [facility] Start: 08-10-2024 Potassium [Moles/volume] in Serum or Plasma POTASSIUM [facility] Start: 05-23-2024 Potassium [Moles/volume] in Serum or Plasma POTASSIUM [facility] Start: 02-27-2024 Potassium [Moles/volume] in Serum or Plasma POTASSIUM [facility] Start: 01-02-2024 End: 01-02-2024 Patient encounter procedure 01/02/2024 10:30 AM EST Office Visit [facility] [place] [address] [place] [address] Randal Vital MD [address] [place] [address] [facility] [place] Start: 12-28-2023 End: 10-16-2024 US Abdomen RUQ US ABDOMEN RUQ/LIVER/GB Imaging Routine 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 Expected: 12/28/2023 (Approximate), Expires: 10/16/2024 [facility] Immunizations Immunization Date Immunization Notes Care Provider Fa luceroty 05-23-2023 Pneumococcal Conjuga te 20-Valent Vaccine Randal Vital MD Work Phone: [facility] Social History Date Type Detail Facility Start: 11-07-2022 Tobacco smoking stat us ILIS Never smoked tobacco [facility] Start: 11-07-2022 Tobacco use and exposure Smokeless tobacco non-user [facility] Start: 11-07-2022 End: 10-16-2023 Alcohol intake Lifetime non-drinker (finding) [facility] Start: 1960 Sex Assigned At Not on file [facility] Start: 10-28-2022 End: 11-07-2022 Exposure to SARS-CoV-2 (event) Unable to assess [facility] Start: 05-23-2023 End: 10-16-2023 History of Social function [facility] Start: 05-23-2023 End: 10-16-2023 Tobacco use panel [facility] Clinical Notes 11-07-2022 to 10-16-2023 VANCE [...] Darlene Garibay HISTORY OF PRESENT ILLNESS: Madhavi Avlaos is a 63 y.o. female who presents to the [facility] today for follow-up. I have reviewed her medical, surgical, and social history and have updated medication and allergy information in the computerized patient record. Madhavi Avalos has a history of decompensated [facility] cirrhosis c/b refractory ascites despite diuretics [...] Laterality: N/A; Surgeon: Amber Manuel MD; Location: [facility] INTERVENTIONAL RADIOLOGY (VIR) PARACENTESIS ABDOMINAL W/ IMAGING GUIDANCE N/A 08/29/2023 Laterality: N/A; Surgeon: Amber Manuel MD; Location: [facility] INTERVENTIONAL RADIOLOGY (VIR) ESOPHAGOSCOPY W/ LIGATION BAND [...] y.o. female with a history of decompensated [facility] cirrhosis c/b refractory ascites despite diuretics [...] diuretic refractory ascites requiring weekly paracentesis. Plan [facility] Cirrhosis: MELD 3.0 16 from previous [...] Division of Gastroenterology, Hepatology, & Nutrition [facility] This nurse used ceiling installer [id number]. This nurse verified pts name and . documented in this encounter [facility] 08-30-2023 History of Presen t illness Narrative Images from the original note were not included. [facility] Note: Bedside Delivery Documentation The following prescription(s) were delivered to the patient's bedside. Michelet Wright [facility] [phone] [facility] [phone] [facility] Bedside Delivery [phone] [facility] [phone] [facility] Bedside Delivery [phone] Jakub [phone] [facility] Bedside Delivery [phone] [place] [phone] [place] [phone] Images from the original note were not included. [facility] Note: Non-Verbal Med Rec [facility] received the following discharge prescription(s): Total cost is $0.00. I have reviewed the Discharge Rx Reconciliation Report. The discharge prescription(s) will be delivered to the patient on 08/30/2023. [facility] [phone] [facility] [phone] [facility] Bedside Delivery [phone] [facility] [phone] [facility] Bedside Delivery [phone] Jakub [phone] [facility] Bedside Delivery [phone] [place] [phone] [place] [phone] Final Discharge Planning and Transportation Final Discharge [...] contacted related to barriers Nadira Mauricio RN, RECREATION PROGRAMMER-S, ACM R 9 E Clinical R Programmer Telephone # available in Treatment team. Also available via Secure Chat. Acute Physical Therapy Evaluation Prior to Admission [facility] score(s): PRIOR LEVEL AM-PAC Mobility Raw Score: [...] agreeable to PT treatment with RN approval. [place] speaking- daughter present and assists with translation [...] intact Mobility Assessment: Supine to Sit Mobility [place] Level: Supine->Sit: modified independence Bed Features/Set-up: Supine->Sit: Head of bed elevated Skilled Rationale: Verbal cues, Initiation and execution of task Sit to Supine Mobility [place] Level: Sit->Supine: modified independence Bed Features/Set-up: Sit->Supine: [...] device Transfer Assessment: Sit to Stand Transfer [place] Level: Sit->Stand: stand-by assist Assistive Device: Sit->Stand: gait belt Skilled Rationale: Verbal cues, Initiation and execution of task Skilled Intervention/Details: Sit->Stand: X1 EOB Stand to Sit Transfer [place] Level: Stand->Sit: stand-by assist Assistive Device: Stand->Sit: gait belt Skilled Rationale: Sequencing, Hand placement, Verbal cues, Controlled descent for sitting Gait/Functional Mobility: Gait Assessment [place] Level: Gait: stand-by assist Assistive Device: Gait: [...] to optimize gait mechanics Stairs: Stairs Assessment [place] Level: Stair Negotiation: not tested Outcome Score(s): CURRENT [facility] Basic Mobility Inpatient Short Form Turning over in bed: 4 - No Assistance Sitting/standing from chair: 3 - A Little Assistance Moving from lying on back to sittin - No Assistance Moving to and from bed to chair: 3 - A Little Assistance Walk in hospital room: 3 - A Little Assistance Climbing 3-5 steps with a railin - A Little Assistance CURRENT [facility] Mobility Raw Score: 20 CURRENT [facility] Mobility Functional Limitation/Modifier: 35.83% Currently Impaired in [...] Edema: Mobility Assessment: Supine to Sit Mobility [place] Level: Supine->Sit: supervision Bed Features/Set-up: Supine->Sit: Head of bed elevated Sit to Supine Mobility [place] Level: Sit->Supine: supervision Bed Features/Set-up: Sit->Supine: Head of bed elevated Transfer Assessment: Sit to Stand Transfer [place] Level: Sit->Stand: stand-by assist Assistive Device: Sit->Stand: 2 wheeled walker Skilled Rationale: Cues for increased safety, Full extension to upright positioning/posture Stand to Sit Transfer [place] Level: Stand->Sit: stand-by assist Assistive Device: Stand->Sit: 2 wheeled walker Functional Mobility: Functional Mobility [place] Level: Functional Mobility/Gait: stand-by assist Assistive Device: Functional Mobility/Gait: 2 wheeled walker Functional Mobility Distance: Distance needed for common household mobility Functional Mobility Deficits: Activity tolerance, Balance, Generalized weakness, Slowed gait speed Functional Mobility Skilled Rationale: Cues for increased safety, Walker management/safety Skilled Intervention/Details - Functional Mobility/Gait: Min cueing for safety, navigation around environmental hazards Outcome Score(s): CURRENT [facility] Daily Activity Inpatient Short Form Putting on/Taking Off Lower Body Clothin - A Little Assistance Bathin - A Little Assistance Toiletin - A Little Assistance Putting on/Taking Off Upper Body Clothin - A Little Assistance Groomin - A Little Assistance Eatin - No Assistance CURRENT [facility] Activity Raw Score: 19 CURRENT [facility] Activity Functional Limitation/Modifier: 42.80% Currently Impaired in Daily Activity - CK Interventions: Assessment & Plan: [facility] and seen for therapy evaluation related [...] Daily Progress Note Patient: Madhavi Avalos, 1960, [id number] Physician: Tk Contreras MD, Hepatology Service Assessment/Plan: Madhavi Avalos is a 63 y.o. female with a history of decompensated [facility] cirrhosis c/b refractory ascites despite diuretics and weekly paracentesis, EV s/p EBL. Admitted for a planned TIPS on 08/29/2023. [facility] Cirrhosis S/p attempted TIPS procedure MELD [...] to discuss her case with the attending rig supervisor, what the next steps would be, and [...] is here for planned TIPS procedure. Qualified ceiling installer was present as primary ceiling installer to interpret during the following: admission. The primary ceiling installer resource was qualified telephonic ceiling installer: ID # [id number] Initial Discharge Planning Anticipated discharge disposition: Home [...] none Legal Next of Kin: Brent Stone [phone] 2. daughter Fara Neville [phone] Financial Resources Insurance: No Prescription Coverage: No [...] planning and care coordination. Nadira Mauricio RN, RECREATION PROGRAMMER-S, ACM R 9 E Clinical R Programmer Telephone # available in Treatment team. Also available via Secure Chat. documented in this encounter [facility] 08-30-2023 Nurse Note Handout in [place] on cirrhosis/low salt diet given to patient and family prior to discharge today. Pt scheduled for hospital follow up with Annabel Goetz NP on 10/16/23. [facility] 08-30-2023 Miscellaneous Notes Handout in [place] on cirrhosis/low salt diet given to patient [...] to home. Madhavi Avalos was admitted to [facility] from home. The patient reported all personal [...] the car documented in this encounter [facility] 08-30-2023 Hospital Discharg e instructions Tk Contreras [...] note that you should obtain refills from [employer] using GoodRx coupons to get these medications [...] Care Everywhere.Torsemide Oral Tablet (TORSEMIDE - ORAL) ([place])documented in this encounter [facility] 08-30-2023 Hospital course Narrative Discharge Summary Name: [...] during her recent hospital stay at [facility]. As you may know, Madhavi Avalos is [...] providers found Division of Hospital Medicine p: [phone] f: [phone] CONSULTS DURING ADMISSION: IP CONSULT TO PHYSICAL THERAPY IP CONSULT TO OCCUPATIONAL THERAPY IP CONSULT TO PHARMACY MEDICATION ASSISTANCE IP CONSULT TO PHARMACY BEDSIDE DISCHARGE MED DELIVERY IMAGING / PROCEDURES / RESULTS: PERCUTANEOUS TRANSHEPATIC PORTAL VEIN-IP ONLY ABDOMINAL PARACENTESIS Should you require further information or copies of results or reports please contact Medical Information Management @ [phone] LABS AT TIME OF DISCHARGE: Lab Results [...] the patient was directed to go to [facility] for discounted medications PATIENT'S MEDICAL HOME AT DISCHARGE: Darlene Garibay [address] [place] / [place] [id number] MEDICATIONS: Medication List for when you go [...] Dept Phone 09/11/2023 1:00 PM Ken Garcia [facility] Arrive at: Arrive to Outpatient Surgery Center Registration [phone] 10/16/2023 11:30 AM Annabel Goetz [facility] [place] Arrive at: Arrive to 1st Floor Registration [phone] 01/02/2024 10:30 AM Randal Vital [facility] [place] Arrive at: Arrive to 1st Floor Registration [phone] Associated attestation - Seth Hines MD, MPH [...] home and will follow-up with her primary rig supervisor regarding next steps. Diuretics adjusted as follows: Lasix discontinued and started on torsemide 20mg bid. Home Aldactone continued. Midodrine increased to 15mg tid from 10mg tid to assist with hypotension. MELD 3.0 16. documented in this encounter [facility] 08-30-2023 Plan of care note Problem: PT [...] ROM, necessary for functional mobility. Outcome: Ongoing [facility] 08-30-2023 Plan of care note Problem: [...] to safely complete toileting. Outcome: Ongoing T [facility] 08-30-2023 Plan of care note Problem: [...] active listening utilized verbalization of feelings encouraged [facility] 08-29-2023 Plan of care note Problem: [...] Acute/Chronic (Adult) CPG). Outcome: Progressing Toward Goal [facility] 08-29-2023 Note Amber Manuel MD 3:32 [...] PGY-6 Toma Trent DO 08/29/2023 1:28 PM CARAMEL CUTTER MACHINE(S): Amber Manuel MD (Attending); Toma Trent DO (Resident) CONSENT: Informed consent was obtained prior to the procedure after discussion of the risks, benefits, and alternatives of the procedure, and expected procedure outcomes were discussed with the patient and/or customer service representative. The consent document was placed in chart. DID THIS PROCEDURE REQUIRE A UNIVERSAL PROTOCOL?: Yes. [place] Protocol is required. Preprocedure verification is complete. [...] Radiology to participate in this patient's care. [facility] 08-29-2023 Nurse Note Interventional Radiology TIPSS [...] of clear yellow ascites removed during paracentesis. [facility] 08-28-2023 Plan of care note Problem: Patient Care Overview Goal: Plan of Care Review Outcome: Ongoing Goal: Individualization & Mutuality Outcome: Ongoing Goal: Discharge Needs Assessment Outcome: Ongoing Goal: Interdisciplinary Rounds/Family Conf Outcome: Ongoing [facility] 08-28-2023 Progress note Formatting of t his note might be different from the original. I certify that this patient requires inpatient services at this time. I anticipate the expected length of stay will include at least two midnights. Inpatient services are due to the following medical concerns TIPS. Plans for post hospitalization care will be discharge to home. [facility] 08-28-2023 History and physical note Internal Medicine Admission History & Physical Patient: Madhavi Neville Robbie, 1960, [id number] Physician: Tk Contreras MD, PGY1, Hepatology Service Date of face to face patient encounter: 08/28/2023. Chief Complaint: Planned Admission for TIPS History Of Present Illness: Madhavi Avalos is a 63 y.o. female with a history of decompensated [facility] cirrhosis c/b refractory ascites despite diuretics [...] chills, cough, melena, hematochezia, or hematemesis. Primary Compressed Gas Tester Dr. Vital Etiology of Liver Disease [facility] cirrhosis MELD MELD 3.0: 14 at [...] erythema Skin: No jaundice or rash Neuro: chicken hatchery helper 3-7, 9-11 intact and equal. Strength grossly [...] planned for 08/29/23. MELD 3.0 14. [facility] 08-28-2023 History and physical note Internal Medicine Admission History & Physical Patient: Madhavi Avalos, 1960, [id number] Physician: Tk Contreras MD, PGY1, Hepatology Service Date of face to face patient encounter: 08/28/2023. Chief Complaint: Planned Admission for TIPS History Of Present Illness: Madhavi Avalos is a 63 y.o. female with a history of decompensated [facility] cirrhosis c/b refractory ascites despite diuretics [...] chills, cough, melena, hematochezia, or hematemesis. Primary Compressed Gas Tester Dr. Vital Etiology of Liver Disease [facility] cirrhosis MELD MELD 3.0: 14 at [...] erythema Skin: No jaundice or rash Neuro: chicken hatchery helper 3-7, 9-11 intact and equal. Strength grossly [...] Ms. Avalos has a history of decompensated [facility] cirrhosis with refractory ascites admitted for planned TIPS. CT abdomen and ECHO findings reviewed; of note RSVP was unable to be estimated on ECHO. TIPS planned for 08/29/23. MELD 3.0 14. documented in this encounter [facility] 08-28-2023 Nurse Note Madhavi Avalos was admitted to [facility] from home. The patient reported all personal [...] Dr. Contreras notified of the patient's arrival. [facility] 08-28-2023 Nurse Note Patient arrived from home with family member. Dr. Contreras notified of arrival. [facility] 08-28-2023 Progress note Formatting of t his note might be different from the original. 08/28/2023 Notified room Ready @ 11:16 AM spoke to pt, will arrive to admitting @ now, pt is parking the car [facility] 08-27-2023 History of Presen t illness [...] Adequate hemostasis achieved. documented in this encounter [facility] 08-27-2023 History of Presen t illness Narrative CLINICAL CARE TEAM: -Referring Provider for today's consult: Self, Self -Primary Care Provider: Darlene Garibay HISTORY OF PRESENT ILLNESS: Madhavi Avalos is a 63 y.o. female who presents to the [facility] today for follow-up. I have reviewed her medical, surgical, and social history and have updated medication and allergy information in the computerized patient record. Mahdavi Avalos has a history of decompensated [facility] cirrhosis c/b refractory ascites despite diuretics [...] y.o. female with a history of decompensated [facility] cirrhosis c/b refractory ascites despite diuretics and weekly paracentesis, EV s/p EBL. She will be admitted tomorrow for planned TIPS on 08/29 Plan [facility] Cirrhosis: MELD 3.0 14 from previous [...] Division of Gastroenterology, Hepatology, & Nutrition [facility] This nurse verified pts name and . documented in this encounter [facility] 08-10-2023 History of Presen t illness Narrative Met with patient(only speaks [place]) and daughter (declined ceiling installer for me but ceiling installer phone available and used for ADRIANO and Doctor) in IR clinic today to discuss TIPS, reviewed patient medication list, allergies, and day of instructions for procedure. Pt gets weekly paracentesis at [facility] for last year. She was drained yesterday for 6.4 liters. Handouts given Patient verbalized understanding of all covered information. Patient will be scheduled for procedure with IR assemblyman or woman. Pt sent to get labs and will need ECHO before procedure. documented in this encounter [facility] 08-10-2023 Instructions Haile Hammond - 08/10/2023 8:40 AM EDT INFORMATION REGARDING YOUR INTERVENTIONAL RADIOLOGY APPOINTMENT FOR PROCEDURE: Transjugular Intrahepatic Portosystemic Shunt (TIPS) with Dr Manuel DATE: 08/29/23. ARRIVAL TIME: 1:00pm on 08/28/23. CHECK IN: Admitting Office, [address] [place] [address], at the [facility] at the [facility], [address] [place] [address]. It is important to arrive on time [...] your appointment, please call our office at [phone] opt 1 at least 24 hours in [...] park in the hospital garages in the [facility] Garage [address] [place] [address] or [facility]. Sample Washer parking is available for $10 (tiwari only) at the main entrance of the [facility]. Plan on being here approximately 3-5 [...] Radiology procedure. documented in this encounter [facility] 05-23-2023 History of Presen t illness Narrative [...] ASSESSMENT/PLAN: Madhavi Avalos is a 62 y.o. [facility] female with what appears to be decompensated [place] cirrhosis, who comes to the clinic today for a LT evaluation and for further management pts cell [phone] 1. Decompensated cirrhosis: - Etiology: NAFLD/HARRISON - [...] to clinic in 3 months Randal NEAL Digital Circuit Designer in Clinical Medicine Department of Internal medicine Pager:[phone] This nurse used ceiling installer [id number]. This nurse verified pts name and . [...] a wait list. documented in this encounter [facility] 05-23-2023 Instructions Randal Vital MD - [...] resistance training documented in this encounter [facility] 11-07-2022 History of Presen t illness Narrative Images from the original note were not included. Division of Gastroenterology, Hepatology and Nutrition HEP OP NOTE: HEPATOLOGY OUTPATIENT NOTE PRIMARY CARE PHYSICIAN: No primary care provider on file. REFERRING PROVIDER: Damian Estrada DO [address] [place] [id number] HEPATOLOGY/GI DIAGNOSIS: 1. Decompensated cirrhosis from [place]ISON- [...] ILLNESS: Madhavi Avalos is a 62 y.o. [facility] female with what appears to be decompensated [...] ASSESSMENT/PLAN: Madhavi Avalos is a 62 y.o. [facility] female with what appears to be decompensated [...] Return to clinic in 3 Randal NEAL Digital Circuit Designer in Clinical Medicine Department of Internal medicine Pager:[phone] This HEAD BOOKKEEPER verified patient's name and through sql ssis developer #[id number]. documented in this encounter [facility] 11-07-2022 Instructions Randal Vital MD - [...] or resistance training documented in this encounter [facility] documented in this encounter [facility] Diagnosis Decompensated hepatic cirrhosis documented in this encounter [facility] Diagnosis Decompensated hepatic cirrhosis- Primary documented in this encounter [facility] Diagnosis Other ascites [facility] this encounter [facility] Diagnosis Other ascites- Primary Other cirrhosis of liver Other ascites Other cirrhosis of liver Other ascites Other cirrhosis of liver documented in this encounter [facility] Diagnosis Other ascites Other cirrhosis of liver Decompensated hepatic cirrhosis- Primary Other ascites Other cirrhosis of liver documented in this encounter [facility] Diagnosis Other ascites Other ascites Other cirrhosis of liver documented in this encounter [facility] Diagnosis Other ascites Other cirrhosis of liver Decompensated hepatic cirrhosis 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 documented in this encounter [facility] Diagnosis 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- Primary Other chronic nonalcoholic liver disease documented in this encounter [facility] Reason for Referral Specialty Diagnoses / Procedures Referred By Dorian romero Referred To Contact Echocardiography Diagnoses Decompensated hepatic cirrhosis Procedures ECHOCARDIOGRAM NC ECHO HEART XTHORACIC,COMPLETE W DOPPLER Randal Vital MD [address] [facility] [address] [place] [address] [address] [place] [address] Referral ID Status Reason Start Date Expiration Date Visits Re quested Visits Authorized [id number] Closed 02/13/2023 03/09/2024 1 1 Specialty Diagnoses / Procedures Referred By Dorian romero Referred To Contact Diagnoses Decompensated hepatic cirrhosis Procedures US ABDOMEN RUQ/LIVER/GB Randal Vital MD [address] [place] [address] Referral ID Status Reason Start Date Expiration Date V isits Requested Visits Authorized [id number] New Request 05/23/2023 06/16/2024 1 1 Specialty Diagnoses / Procedures Referred By Contac t Referred To Contact Diagnoses Decompensated hepatic cirrhosis Procedures INTERVENTIONAL UPPER ENDOSCOPY INTERVENTIONAL UPPER ENDOSCOPY NC ESOPHAGOGASTRODUODENOSCOPY TRANSORAL DIAGNOSTIC Randal Vital MD [address] [place] [address] Referral ID Status Reason Start Date Expiration Date V isits Requested Visits Authorized [id number] New Request 05/23/2023 06/16/2024 1 1 Specialty Diagnoses / Procedures Referred By Contac t Referred To Contact Diagnoses Other ascites Procedures CT ABDOMEN/PELVIS WITH CONTRAST CHG CT SCAN,ABDOMENT AND PELVIS,W CONTRAST Randal Vital MD [address] [place] [address] Referral ID Status Reason Start Date Expiration Date V isits Requested Visits Authorized [id number] New Request 06/20/2023 07/14/2024 1 1 Specialty Diagnoses / Procedures Referred By Contac t Referred To Contact Diagnoses Other ascites Other cirrhosis of liver Procedures CASE REQUEST DEPARTMENT USE ONLY INTERVENTIONAL RADIOLOGY Haile Maldonado, MIMEOGRAPH OPERATOR-BUTT PRESSER [address] [place] [address] Referral ID Status Reason Start Date Expiration Date V isits Requested Visits Authorized [id number] New Request 08/10/2023 09/03/2024 1 1 Specialty Diagnoses / Procedures Referred By Contac t Referred To Contact Diagnoses Other ascites Procedures ECHOCARDIOGRAM NC ECHO HEART XTHORACIC,COMPLETE W DOPPLER Haile Maldonado, MIMEOGRAPH OPERATOR-BUTT PRESSER [address] [place] [address] Referral ID Status Reason Start Date Expiration Date V isits Requested Visits Authorized [id number] New Request 08/10/2023 09/03/2024 1 1 Specialty Diagnoses / Procedures Referred By Contac t Referred To Contact Echocardiography Diagnoses Other ascites Procedures ECHOCARDIOGRAM NC ECHO HEART XTHORACIC,COMPLETE W DOPPLER Haile Maldonado, MIMEOGRAPH OPERATOR-BUTT PRESSER [address] [place] [address] Echocardiography [place] [address] [place] [address] Referral ID Status Reason Start Date Expiration Date Visits Re quested Visits Authorized [id number] Closed 08/10/2023 09/03/2024 1 1 Specialty Diagnoses / Procedures Referred By Contac t Referred To Contact Procedures DVT/VTE RISK ASSESSMENT Seth Hines MD, MPH [address] [place] [address] Referral ID Status Reason Start Date Expiration Date V isits Requested Visits Authorized [id number] New Request 08/28/2023 09/21/2024 1 1 Specialty Diagnoses / Procedures Referred By Contac t Referred To Contact Diagnoses 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 Procedures US ABDOMEN RUQ/LIVER/GB Annabel Goetz APRN-BUTT PRESSER [address] [place] [address] Referral ID Status Reason Start Date Expiration Date V isits Requested Visits Authorized [id number] New Request 10/16/2023 11/09/2024 1 1 Advance [...] [place] FriendDamian, [address] [place] [address] Referral ID Status Reason Start Date Expiration Date V isits Requested Visits Authorized [id number] New Request 03/17/2022 04/11/2023 1 1 Specialty Diagnoses / Procedures Referred By Contac t Referred To Contact Echocardiography Diagnoses Decompensated hepatic cirrhosis Procedures ECHOCARDIOGRAM NC ECHO HEART XTHORACIC,COMPLETE W DOPPLER Randal Vital MD [address] [place] [address] Echocardiography [place] [address] [place] [address] Referral ID Status Reason Start Date Expiration Date Visits Re quested Visits Authorized [id number] Closed 02/13/2023 03/09/2024 1 1 Reason Comments Follow-up Specialty Diagnoses / Procedures Referred By Contac t Referred To Contact Diagnoses Other ascites Procedures CT ABDOMEN/PELVIS WITH CONTRAST CHG CT SCAN,ABDOMENT AND PELVIS,W CONTRAST Randal Vital MD [address] [place] [address] Referral ID Status Reason Start Date Expiration Date V isits Requested Visits Authorized [id number] New Request 06/20/2023 07/14/2024 1 1 Reason Comments Consult Specialty Diagnoses / Procedures Referred By Contac t Referred To Contact Interventional Radiology Diagnoses Decompensated hepatic cirrhosis Randal Vital MD [address] [facility] [address] [place] [address] Referral ID Status Reason Start Date Expiration Date V isits Requested Visits Authorized [id number] New Request 06/18/2023 07/12/2024 1 1 Reason Comments Follow-up Concerns with throat Specialty Diagnoses / Procedures Referred By Contac t Referred To Contact Echocardiography Diagnoses Other ascites Procedures ECHOCARDIOGRAM NC ECHO HEART XTHORACIC,COMPLETE W DOPPLER Haile Maldonado, MIMEOGRAPH OPERATOR-BUTT PRESSER [address] [place] [address] Echocardiography [place] [address] [facility] [address] [place] [address] Referral ID Status Reason Start Date Expiration Date Visits Re quested Visits Authorized [id number] Closed 08/10/2023 09/03/2024 1 1 Specialty Diagnoses / Procedures Referred By Contac t Referred To Contact Diagnoses Other ascites Other cirrhosis of liver Other ascites [R18.8] Other cirrhosis of liver [K74.69] Procedures NC INSERT TRANSVEN INTRAHEP PORTOSYS SHUNT NC ABDOM PARACENTESIS DX/THER W IMAGING GUIDANCE INSERTION SHUNT TRANSVENOUS INTRAHEPATIC PORTOSYSTEMIC PERCUTANEOUS (TIPS) PARACENTESIS ABDOMINAL W/ IMAGING GUIDANCE Seth Hines MD, MPH [address] [address] [facility] [address] [place] [address] Referral ID Status Reason Start Date Expiration Date Visits Re quested Visits Authorized [id number] 1 1 Reason Comments Post-Discharge Follow Up Care Teams (unrecognized sec tion and content) Vegetable Tier Relationship Specialty Start Date End Date Darlene Garibay MD [address] [place] [address] PCP - General Family Medicine 05/23/23 Vegetable Tier Relationship Specialty Start Date End Date Darlene Garibay MD [address] [place] [address] PCP - General Family Medicine 05/23/23 Vegetable Tier Relationship Specialty Start Date End Date Darlene Garibay MD [address] [place] [address] PCP - General Family Medicine 05/23/23 Vegetable Tier Relationship Specialty Start Date End Date Darlene Garibay MD [address] [place] [address] PCP - General Family Medicine 05/23/23 Scheduled Active and Recently Administ ered Medications (unrecognized section and content) Continuous Medication Order 08/28/2023 08/29/2023 08/30/2023 albumin human 5 % injection 25 g 25 g, Intravenous, CONTINUOUS, Starting on Sun08/29/23 at 0700, Until Sun08/30/23 at 1842, Indications: Fluid Resuscitation, Intra-op/Intra-Proc 0946 (Given - Provider: VALENTÍN GrullonSTUDIO COORDINATOR) PRN Medication Order 08/28/2023 08/29/2023 08/30/2023 Acetaminophen [...] 3 g, Intravenous, Administer over 30 Minutes, TEST TUBE MAKER TO PROCEDURE, 1 dose, Starting on Sun08/29/23 [...] BE BASED ON THE PRIMARY CLINICAL RECORDS. [facility]. provides no warranty or guarantee of the accuracy or completeness of information in this document.
[2023-11-22 11:02] VITALS: BP 119/56; PULSE 85; RESP 18; O2SAT 98
[2023-11-22] MEDS: Lidocaine 2% (20 ml mdv) 20 ML Vial INFILT (11:05)
[2023-11-22 11:14] VITALS: BP 105/50; PULSE 77; RESP 18; O2SAT 98
[2023-11-22 11:28] VITALS: BP 103/41; PULSE 80; RESP 18; O2SAT 98
[2023-11-22] MEDS: 0.9% Saline Lock 10 ML Syringe IV ×2 (11:40→12:00)
[2023-11-22] MEDS: Albumin Human 25% (100 mL) 25 GM/100 ML BAG IV (12:00)
[2023-11-22 12:01] VITALS: BP 86/41; PULSE 78; RESP 16; TEMP 36.3; O2SAT 99; BMI 24.0
[2023-11-22] MEDS: Albumin Human 25% (50 mL) 12.5 GM/50 ML IV.SOLN IV (13:26)
--- NOTE | 2023-11-22 14:08 | PRO.PCM_ITS ---
Procedure Report Date of Procedure: 11/22/23 Assessment & Plan Assessment/Plan (1) Abdominal ascites: QUALIFIERS: Ascites type: other type Qualified Code(s): R18.8 - Other ascites PLAN: PROCEDURE: Ultrasound guided paracentesis ORDERING PROVIDER: Dr. Estrada INDICATION: Female, 63 years old. Abdominal ascites. PROVIDER: VANCE Painting TECHNIQUE: The risks, benefits, and alternatives to the procedure were explained to the patient. The specific risks of bleeding, infection, and damage to bowel were detailed and accepted. Witnessed informed consent was obtained. The abdomen was ultrasonographically surveyed. An appropriate pocket of fluid was identified in the right lower quadrant. The skin was prepped with chlorhexidine and sterile field established. 2% lidocaine was used for local anesthetic. Using ultrasound guidance, the peritoneal cavity was accessed with a 5-Hungarian paracentesis needle/catheter system. The trocar was removed. A total of 6700 ml of clear yellow colored fluid was removed from the peritoneal cavity. The catheter was removed and a sterile dressing was applied. The procedure was well tolerated. IMPRESSION: Successful ultrasound-guided paracentesis with right lower quadrant access site. Procedures Radiology Radiology US Procedures: [id number] Paracentesis
[2023-11-22 14:28] VITALS: BP 87/46; PULSE 79; RESP 16; TEMP 36.3
== END | disposition home or self-care (01) ==
LOC: US 10:04
PROVIDERS: PCP Family Medicine; Referring Provider Internal Medicine Gastroenterology; Visit Provider Internal Medicine Gastroenterology
DX: K75.81 Nonalcoholic steatohepatitis (NASH) (principal)
CPT/HCPCS: 96365; 96366; 49083; J7050; P9047; A4216

== ENCOUNTER → 2023-11-29 | Outpatient (CLI) | payer SELFPAY ==
[2023-11-29] MEDS: Lidocaine 2% (20 ml mdv) 20 ML Vial INFILT (12:35)
[2023-11-29 12:43] VITALS: BP 86/44; PULSE 91; RESP 18; O2SAT 97
[2023-11-29 12:44] VITALS: BP 96/58; PULSE 87; RESP 18; O2SAT 98
[2023-11-29 12:59] VITALS: BP 102/63; PULSE 85; RESP 18; O2SAT 99
--- NOTE | 2023-11-29 13:03 | RAD_ITS ---
STUDY: X-RAY CHEST REASON FOR EXAM: Female, 63 years old. Cough with rales. TECHNIQUE: Frontal and lateral views of the chest. COMPARISON: 09/20/2022. FINDINGS: Hyperinflation of the left along with mild interstitial prominence in the base, unchanged. Marked loss of volume of the right lung with bullous changes, elevation of the horizontal fissure, substantial right pleural thickening and elevation of the right hemidiaphragm with pleural thickening/pleural effusion on the right. Slight increased lucency within the right pleural effusion. No acute or emergent finding. No abnormality of the visualized soft tissue structures of the upper abdomen. RAD/Chest PA and Lateral IMPRESSION: Stable hyperinflation of the left lung with substantial loss of volume of the right lung. Slight increased lucency in the pleural thickening/pleural effusion on the right. No acute or emergent finding. Electronically Signed: Ravin Bess MD at 13:36 EST ,
--- NOTE | 2023-11-29 15:17 | PCM.OP.PRO ---
Procedure Report Date of Procedure: 11/29/23 Assessment & Plan Assessment/Plan (1) Abdominal ascites: QUALIFIERS: Ascites type: other type Qualified Code(s): R18.8 - Other ascites PLAN: PROCEDURE: Ultrasound guided paracentesis ORDERING PROVIDER: Dr. Estrada INDICATION: Female, 63 years old. Abdominal ascites. PROVIDER: VANCE Painting TECHNIQUE: The risks, benefits, and alternatives to the procedure were explained to the patient and daughter. The specific risks of bleeding, infection, and damage to bowel were detailed and accepted. Witnessed informed consent was obtained. The abdomen was ultrasonographically surveyed. An appropriate pocket of fluid was identified in the left lower quadrant. The skin was prepped with chlorhexidine and sterile field established. 2% lidocaine was used for local anesthetic. Using ultrasound guidance, the peritoneal cavity was accessed with a 5-Portuguese paracentesis needle/catheter system. The trocar was removed. A total of 5950 ml of clear yellow colored fluid was removed from the peritoneal cavity. The catheter was removed and a sterile dressing was applied. The procedure was well tolerated. IMPRESSION: Successful ultrasound-guided paracentesis with left lower quadrant access site. Procedures Radiology Radiology US Procedures: [id number] Paracentesis
== END | disposition home or self-care (01) ==
PROVIDERS: PCP Family Medicine; Referring Provider Internal Medicine Gastroenterology; Visit Provider Internal Medicine Gastroenterology
DX: J81.1 Chronic pulmonary edema (principal); K74.60 Unspecified cirrhosis of liver; K75.81 Nonalcoholic steatohepatitis (NASH)
CPT/HCPCS: 49083; 71046

== ENCOUNTER → 2023-12-06 | Outpatient (CLI) | payer SELFPAY ==
--- NOTE | 2023-12-06 10:07 | US_ITS ---
PROCEDURE: Ultrasound guided paracentesis. DATE OF EXAMINATION: December 06, 2023.. INDICATION: Female, 63 years old. Ascites. PHYSICIAN: Valeriano Hull M.D. TECHNIQUE: The risks, benefits, and alternatives to the procedure were explained to the patient. The specific risks of bleeding, infection, and damage to bowel were detailed and accepted. Witnessed informed consent was obtained. The abdomen was ultrasonographically surveyed. An appropriate pocket of fluid was identified at the right lower quadrant. The skin were cleaned and prepped in the usual sterile fashion. Using ultrasound guidance, the peritoneal cavity was accessed with a 5-Rwandan paracentesis needle/catheter system. The trocar was removed. A total of 5050 ml of willis-colored fluid were removed from the peritoneal cavity. The catheter was removed and a sterile dressing was applied. The procedure was well tolerated. US/Paracentesis with US IMPRESSION: Ultrasound guided paracentesis. Electronically Signed: Valeriano Hull MD at 11:52 EST ,
[2023-12-06 10:29] VITALS: BP 104/53; PULSE 104; RESP 96; TEMP 36.9
[2023-12-06] MEDS: Lidocaine 2% (20 ml mdv) 20 ML Vial INFILT (10:35)
[2023-12-06 10:37] VITALS: BP 99/63; PULSE 103; RESP 18; O2SAT 97
[2023-12-06 10:54] VITALS: BP 91/53; PULSE 108; RESP 18; O2SAT 96
[2023-12-06] MEDS: 0.9% Saline Lock 10 ML Syringe IV ×2 (11:06→11:29)
[2023-12-06] MEDS: Albumin Human 25% (100 mL) 25 GM/100 ML BAG IV (11:29)
[2023-12-06 11:30] VITALS: BP 91/52; PULSE 98; RESP 18; TEMP 36.6; O2SAT 98; BMI 29.7
--- OUTSIDE RECORDS SUMMARY | 2023-12-06 11:52 | XMS RPT_ITS | CCD ---
Author Name Unknown Address [address] [place] [address] Organization [facility] Care Team Providers Care Aircraft Log Clerk Name Role Phone Unavailable Primary Care Provider Unavailjairo Garibay MD, [place] Primary Care Provider [phone] [facility] Primary Care Unavailable HAILE MALDONADO Attending Unavailable HAILE MALDONADO Referring Unavailable NEPTALI, CHATHUR Referring Unavailable NEPTALI, CHATHUR Referring Unavailable SETH HINES Admitting Unavailable SETH HINES Attending Unavailable [facility] Primary Care Unavailable SELF, SELF Referring Unavailable ANNABEL GOETZ Attending Unavailable [facility] Primary Care Unavailable ANNABEL GOETZ Attending Unavailable [facility] Primary Care Unavailable SELF, SELF Referring Unavailable [facility] Primary Care Unavailable NEPTALI, CHATHUR Referring Unavailable [facility] Primary Care Unavailable MANUEL AMBER Attending Unavailable NEPTALI, CHATHUR Referring Unavailable NEPTALI, CHATHUR Attending Unavailable [facility] Primary Care Unavailable NEPTALI, CHATHUR Attending Unavailable SELF, SELF Referring Unavailable SELF, SELF Referring Unavailable NEPTALI, CHATHUR Attending Unavailable NEPTALI, CHATHUR Referring Unavailable NEPTALI, CHATHUR Attending Unavailable NEPTALI, CHATHUR Attending Unavailable [facility] Primary Care Unavailable SELF, SELF Referring Unavailable SELF, SELF Referring Unavailable NEPTALI, CHATHUR Attending Unavailable SELF, SELF Referring Unavailable BUTNARIU, KEN I Attending Unavailable NEPTALI, CHATHUR Referring Unavailable [facility] Primary Care Unavailable SELF, SELF Referring [...] [Ratio] 31.91 kg/m2 Annabel WOODARD Work Phone: [facility] 10-16-2023 10:59-0500 Body weight 76.61 kg Annabel WOODARD Work Phone: [facility] 10-16-2023 10:59-0500 Diastolic blood pressure 58 mm[Hg] Annabel WOODARD Work Phone: [facility] 10-16-2023 10:59-0500 Heart rate 103 /min Annabel WOODARD Work Phone: [facility] 10-16-2023 10:59-0500 SaO2% (BldA) [Mass fraction] 98 % Annabel WOODARD Work Phone: [facility] 10-16-2023 10:59-0500 Systolic blood pressure 98 mm[Hg] Annabel Goetz ACCESS CONSULTANT-ANIMAL NURSERY WORKER Work Phone: [facility] 08-30-2023 13:44-0400 Body temperature 97.39 [degF] Seth Hines MD, MPH Work Phone: [facility] 08-30-2023 13:44-0400 Diastolic blood pressure 52 mm[Hg] Seth Hines MD, MPH Work Phone: [facility] 08-30-2023 13:44-0400 Heart rate 65 /min Seth Hines MD, MPH Work Phone: [facility] 08-30-2023 13:44-0400 Respiratory rate 16 /min Seth Hines MD, MPH Work Phone: [facility] 08-30-2023 13:44-0400 SaO2% (BldA) [Mass fraction] 97 % Seth Hines MD, MPH Work Phone: [facility] 08-30-2023 13:44-0400 Systolic blood pressure 95 mm[Hg] Seth Hines MD, MPH Work Phone: [facility] 08-28-2023 11:49-0400 Body height 154.9 cm Seth Hines MD, MPH Work Phone: [facility] 08-28-2023 11:49-0400 Body mass index (BMI) [Ratio] 32.9 kg/m2 Seth Hines MD, MPH Work Phone: [facility] 08-28-2023 11:49-0400 Body weight 78.97 kg Seth Hines MD, MPH Work Phone: [facility] 08-27-2023 13:10-0400 Body height 160 cm Haile Maldonado ACCESS CONSULTANT-ANIMAL NURSERY WORKER Work Phone: [facility] 10-30-2023 13:10-0400 Body mass index (BMI) [Ratio] 30.47 kg/m2 Haile Erica ACCESS CONSULTANT-ANIMAL NURSERY WORKER Work Phone: [facility] 08-27-2023 13:10-0400 Body weight 78 kg Haile Erica ACCESS CONSULTANT-ANIMAL NURSERY WORKER Work Phone: [facility] 08-27-2023 13:10-0400 Diastolic blood pressure 62 mm[Hg] Haile Maldonado ACCESS CONSULTANT-ANIMAL NURSERY WORKER Work Phone: [facility] 08-27-2023 13:10-0400 Heart rate 80 /min Haile Maldonado ACCESS CONSULTANT-ANIMAL NURSERY WORKER Work Phone: [phone])[phone] [place] [address] 08-27-2023 13:10-0400 Systolic blood pressure 94 mm[Hg] Haile Maldonado ACCESS CONSULTANT-ANIMAL NURSERY WORKER Work Phone: 8([phone])195-284638 [place] [address] 08-27-2023 08:36-0400 Body height 160 cm Annabel Goetz ACCESS CONSULTANT-ANIMAL NURSERY WORKER Work Phone: [facility] 08-27-2023 08:36-0400 Body mass index (BMI) [Ratio] 30.47 kg/m2 Annabel Goetz ACCESS CONSULTANT-ANIMAL NURSERY WORKER Work Phone: [facility] 08-27-2023 08:36-0400 Body weight 78.02 kg Annabel Goetz ACCESS CONSULTANT-ANIMAL NURSERY WORKER Work Phone: [facility] 08-27-2023 08:36-0400 Diastolic blood pressure 62 mm[Hg] Annabel Goetz ACCESS CONSULTANT-ANIMAL NURSERY WORKER Work Phone: [facility] 08-27-2023 08:36-0400 Heart rate 80 /min Annabel Goetz ACCESS CONSULTANT-ANIMAL NURSERY WORKER Work Phone: [facility] 08-27-2023 08:36-0400 SaO2% (BldA) [Mass fraction] 95 % Annabel Goetz ACCESS CONSULTANT-ANIMAL NURSERY WORKER Work Phone: [facility] 08-27-2023 08:36-0400 Systolic blood pressure 94 mm[Hg] Annabel Goetz VANCE Work Phone: [facility] 08-10-2023 08:43-0400 Body temperature 97.81 [degF] [facility] 08-10-2023 08:43-0400 Diastolic blood pressure 57 mm[Hg] [facility] 08-10-2023 08:43-0400 Heart rate 84 /min [facility] 08-10-2023 08:43-0400 SaO2% (BldA) [Mass fraction] 97 % [facility] 08-10-2023 08:43-0400 Systolic blood pressure 107 mm[Hg] [facility] Jakub [facility] 07-05-2023 17:18-0400 Body height 160 cm Randal Vital MD Work Phone: [facility] 07-05-2023 17:18-0400 Body mass index (BMI) [Ratio] 28.34 kg/m2 Randal Vital MD Work Phone: [facility] 07-05-2023 17:18-0400 Body weight 72.58 kg Randal Vital MD Work Phone: [facility] 07-05-2023 17:18-0400 Diastolic blood pressure 57 mm[Hg] Randal Vital MD Work Phone: [facility] 07-05-2023 17:18-0400 Heart rate 74 /min Randal Vital MD Work Phone: [facility] 07-05-2023 17:18-0400 Systolic blood pressure 96 mm[Hg] Randal Vital MD Work Phone: [facility] 05-23-2023 09:47-0400 Body height 159.8 cm Randal Vital MD Work Phone: [facility] 05-23-2023 09:47-0400 Body mass index (BMI) [Ratio] 31.22 kg/m2 Randal Vital MD Work Phone: [facility] 05-23-2023 09:47-0400 Body weight 79.7 kg Randal Vital MD Work Phone: [phone] [place] [address] 05-23-2023 09:47-0400 Diastolic blood pressure 62 mm[Hg] Randal Vital MD Work Phone: [phone])[phone] [place] [address] 05-23-2023 09:47-0400 Heart rate 78 /min Randal Vital MD Work Phone: 0(882)[phone] [place] [address] 05-23-2023 09:47-0400 Respiratory rate 16 /min Randal Vital MD Work Phone: [facility] 05-23-2023 09:47-0400 SaO2% (BldA) [Mass fraction] 99 % Randal Vital MD Work Phone: [facility] 05-23-2023 09:47-0400 Systolic blood pressure 104 mm[Hg] Randal Vital MD Work Phone: [phone])[phone] [place] [address] 02-26-2023 13:27-0400 Body height 160 cm Randal Vital MD Work Phone: [phone])[phone] [place] [address] 02-26-2023 13:27-0400 Body mass index (BMI) [Ratio] 33.16 kg/m2 Randal Vital MD Work Phone: [facility] 02-26-2023 13:27-0400 Body weight 84.9 kg Randal Vital MD Work Phone: [facility] 02-26-2023 13:27-0400 Diastolic blood pressure 78 mm[Hg] Randal Vital MD Work Phone: [facility] 02-26-2023 13:27-0400 Systolic blood pressure 112 mm[Hg] Randal Vital MD Work Phone: [facility] 11-07-2022 16:13-0500 Body height 157.5 cm Randal Vital MD Work Phone: [facility] 11-07-2022 16:13-0500 Body mass index (BMI) [Ratio] 34.2 kg/m2 Randal Vital MD Work Phone: [facility] 11-07-2022 16:13-0500 Body weight 84.82 kg Randal Vital MD Work Phone: [facility] 11-07-2022 16:13-0500 Diastolic blood pressure 70 mm[Hg] Randal Vital MD Work Phone: [facility] 11-07-2022 16:13-0500 Heart rate 88 /min Randal Vital MD Work Phone: [facility] 11-07-2022 16:13-0500 Respiratory rate 18 /min Randal Vital MD Work Phone: [facility] 11-07-2022 16:13-0500 SaO2% (BldA) [Mass fraction] 98 % Randal Vital MD Work Phone: [facility] 11-07-2022 16:13-0500 Systolic blood pressure 102 mm[Hg] Randal Vital MD Work Phone: [facility] Encounters Encounter Date Encounter Type Care Provider Facility Start: 10-16-2023 End: 10-16-2023 Office outpatient visit 25 minutes Annabel Goetz ACCESS CONSULTANT-ANIMAL NURSERY WORKER Work Phone: [facility] Procedures Date Procedure Procedure Detail Performing Clinician Start: 08-30-2023 Assay of magnesium Will kenya Contreras MD Work Phone: Start: 08-30-2023 Hepatic function panel Tk Contreras MD Work Phone: Start: 08-29-2023 GENERAL PROCEDURE Ediliachriss Trent DO Work Phone: Start: 08-29-2023 End: 08-29-2023 Creatinine blood Marilia NEAL Work Phone: Start: 08-29-2023 End: 08-29-2023 TRANSFUSE OR PLASMA Allan Levin ACCESS CONSULTANT-C RNA Start: 08-29-2023 Bilirubin direct Wally Contreras MD Work Phone: Start: 08-28-2023 ABORH TYPE RECONFIRMATION Daniel May MD Work Phone: Start: 08-28-2023 End: 08-28-2023 Antibody screen Seth Hines MD, MPH Work Phone: Plan of Treatment Date Care Activity Detail Author Start: 10-16-2024 Potassium [Moles/volume] in Serum or Plasma POTASSIUM [facility] Start: 08-27-2024 Potassium [Moles/volume] in Serum or Plasma POTASSIUM [facility] Start: 08-10-2024 Potassium [Moles/volume] in Serum or Plasma POTASSIUM [facility] Start: 05-23-2024 Potassium [Moles/volume] in Serum or Plasma POTASSIUM [facility] Start: 02-27-2024 Potassium [Moles/volume] in Serum or Plasma POTASSIUM [facility] Start: 01-02-2024 End: 01-02-2024 Patient encounter procedure 01/02/2024 10:30 AM EST Office Visit [facility] 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 Expected: 12/28/2023 (Approximate), Expires: 10/16/2024 [facility] Immunizations Immunization Date Immunization Notes Care Provider Fa luceroty 05-23-2023 Pneumococcal Conjuga te 20-Valent Vaccine Randal Vital MD Work Phone: [facility] Social History Date Type Detail Facility Start: 11-07-2022 Tobacco smoking stat us TXIS Never smoked tobacco [facility] Start: 11-07-2022 Tobacco use and exposure Smokeless tobacco non-user [facility] Start: 11-07-2022 End: 10-16-2023 Alcohol intake Lifetime non-drinker (finding) [facility] Start: 1960 Sex Assigned At Not on file [facility] Start: 10-28-2022 End: 11-07-2022 Exposure to SARS-CoV-2 (event) Unable to assess [facility] Start: 05-23-2023 End: 10-16-2023 History of Social function [facility] Start: 05-23-2023 End: 10-16-2023 Tobacco use panel [facility] Clinical Notes 11-07-2022 to 10-16-2023 VANCE Cuellar [...] 63 y.o. female who presents to the [facility] today for follow-up. I have reviewed her medical, surgical, and social history and have updated medication and allergy information in the computerized patient record. Madhavi Avalos has a history of decompensated [facility] cirrhosis c/b refractory ascites despite [...] Laterality: N/A; Surgeon: Amber Manuel MD; Location: [facility] INTERVENTIONAL RADIOLOGY (VIR) PARACENTESIS ABDOMINAL W/ IMAGING GUIDANCE N/A 08/29/2023 Laterality: N/A; Surgeon: Amber Manuel MD; Location: [facility] INTERVENTIONAL RADIOLOGY (VIR) ESOPHAGOSCOPY W/ LIGATION BAND [...] y.o. female with a history of decompensated [facility] cirrhosis c/b refractory ascites despite [...] diuretic refractory ascites requiring weekly paracentesis. Plan [facility] Cirrhosis: MELD 3.0 16 from [...] Division of Gastroenterology, Hepatology, & Nutrition [facility] This nurse used chorus dancer [id number]. This nurse verified pts name and . documented in this encounter [facility] 08-30-2023 History of Presen t illness Narrative Images from the original note were not included. [facility] Note: Bedside Delivery Documentation The following prescription(s) were delivered to the patient's bedside. Michelet Wright [facility] ([place]) [phone] [facility] [phone] [facility] Bedside Delivery [phone] [facility] [phone] [facility] Bedside Delivery [phone] [facility] [phone] [facility] Bedside Delivery [phone] [facility] [phone] [place] [phone] Images from the original note were not included. [facility] Note: Non-Verbal Med Rec [facility] received the following discharge prescription(s): Total cost is $0.00. I have reviewed the Discharge Rx Reconciliation Report. The discharge prescription(s) will be delivered to the patient on 08/30/2023. [facility] [phone] [facility] [phone] [facility] Bedside Delivery [phone] [facility] [phone] [facility] Bedside Delivery [phone] [facility] [phone] [facility] Bedside Delivery [phone] [facility] [phone] [place] [phone] Final Discharge Planning and Transportation Final Discharge [...] contacted related to barriers Nadira Mauricio RN, BODY MAKER MACHINE SETTER-S, ACM R 9 E Clinical Security Trainer Telephone # available in Treatment team. Also available via Secure Chat. Acute Physical Therapy Evaluation Prior to Admission [facility] score(s): PRIOR LEVEL AM-PAC Mobility Raw Score: [...] agreeable to PT treatment with RN approval. Swiss speaking- daughter present and assists with translation [...] intact Mobility Assessment: Supine to Sit Mobility [place] Level: Supine->Sit: modified independence Bed Features/Set-up: Supine->Sit: Head of bed elevated Skilled Rationale: Verbal cues, Initiation and execution of task Sit to Supine Mobility [place] Level: Sit->Supine: modified independence Bed Features/Set-up: Sit->Supine: [...] device Transfer Assessment: Sit to Stand Transfer [place] Level: Sit->Stand: stand-by assist Assistive Device: Sit->Stand: gait belt Skilled Rationale: Verbal cues, Initiation and execution of task Skilled Intervention/Details: Sit->Stand: X1 EOB Stand to Sit Transfer [place] Level: Stand->Sit: stand-by assist Assistive Device: Stand->Sit: gait belt Skilled Rationale: Sequencing, Hand placement, Verbal cues, Controlled descent for sitting Gait/Functional Mobility: Gait Assessment [place] Level: Gait: stand-by assist Assistive Device: Gait: [...] to optimize gait mechanics Stairs: Stairs Assessment [place] Level: Stair Negotiation: not tested Outcome Score(s): CURRENT [facility] Basic Mobility Inpatient Short Form Turning [...] a railin - A Little Assistance CURRENT [facility] Mobility Raw Score: 20 CURRENT [facility] Mobility Functional Limitation/Modifier: 35.83% Currently Impaired [...] Edema: Mobility Assessment: Supine to Sit Mobility [place] Level: Supine->Sit: supervision Bed Features/Set-up: Supine->Sit: Head of bed elevated Sit to Supine Mobility [place] Level: Sit->Supine: supervision Bed Features/Set-up: Sit->Supine: Head of bed elevated Transfer Assessment: Sit to Stand Transfer [place] Level: Sit->Stand: stand-by assist Assistive Device: Sit->Stand: 2 wheeled walker Skilled Rationale: Cues for increased safety, Full extension to upright positioning/posture Stand to Sit Transfer [place] Level: Stand->Sit: stand-by assist Assistive Device: Stand->Sit: 2 wheeled walker Functional Mobility: Functional Mobility [place] Level: Functional Mobility/Gait: stand-by assist Assistive Device: Functional Mobility/Gait: 2 wheeled walker Functional Mobility Distance: Distance needed for common household mobility Functional Mobility Deficits: Activity tolerance, Balance, Generalized weakness, Slowed gait speed Functional Mobility Skilled Rationale: Cues for increased safety, Walker management/safety Skilled Intervention/Details - Functional Mobility/Gait: Min cueing for safety, navigation around environmental hazards Outcome Score(s): CURRENT [facility] Daily Activity Inpatient Short Form Putting on/Taking Off Lower Body Clothin - A Little Assistance Bathin - A Little Assistance Toiletin - A Little Assistance Putting on/Taking Off Upper Body Clothin - A Little Assistance Groomin - A Little Assistance Eatin - No Assistance CURRENT [facility] Activity Raw Score: 19 CURRENT [facility] Activity Functional Limitation/Modifier: 42.80% Currently Impaired in Daily Activity - CK Interventions: Assessment & Plan: Patient was [facility] cirrhosis and seen for therapy evaluation [...] Daily Progress Note Patient: Madhavi Avalos, 1960, [id number] Physician: Tk Contreras MD, Hepatology Service Assessment/Plan: Madhavi Avalos is a 63 y.o. female with a history of decompensated [facility] cirrhosis c/b refractory ascites despite diuretics and weekly paracentesis, EV s/p EBL. Admitted for a planned TIPS on 08/29/2023. [facility] Cirrhosis S/p attempted TIPS procedure [...] to discuss her case with the attending box sealing machine operator, what the next steps would be, [...] is here for planned TIPS procedure. Qualified chorus dancer was present as primary chorus dancer to interpret during the following: admission. The primary chorus dancer resource was qualified telephonic chorus dancer: ID # [id number] Initial Discharge Planning Anticipated discharge disposition: Home [...] Agent(s): none Legal Next of Kin: Brent Sotne [phone] 2. daughter Fara Neville [phone] Financial Resources Insurance: No Prescription Coverage: No [...] follow for discharge planning and care coordination. aNdira Mauricio RN, BODY MAKER MACHINE SETTER-S, ACM R 9 E Clinical Security Trainer Telephone # available in Treatment team. Also available via Secure Chat. documented in this encounter [facility] 08-30-2023 Nurse Note Handout in Swiss on cirrhosis/low salt diet given to patient and family prior to discharge today. Pt scheduled for hospital follow up with Annabel Goetz NP on 10/16/23. [facility] 08-30-2023 Miscellaneous Notes Handout in Swiss on cirrhosis/low salt diet given to patient [...] to home. Madhavi Avalos was admitted to [facility] from home. The patient reported all [...] the car documented in this encounter [facility] 08-30-2023 Hospital Discharg e instructions Tk Contreras [...] note that you should obtain refills from [employer] using GoodRx coupons to get these medications [...] Care Everywhere.Torsemide Oral Tablet (TORSEMIDE - ORAL) (Swiss)documented in this encounter [facility] 08-30-2023 Hospital course Narrative Discharge Summary Name: [...] during her recent hospital stay at [facility]. As you may know, Madhavi Avalos is [...] providers found Division of Hospital Medicine p: [phone] f: [phone] CONSULTS DURING ADMISSION: IP CONSULT TO PHYSICAL THERAPY IP CONSULT TO OCCUPATIONAL THERAPY IP CONSULT TO PHARMACY MEDICATION ASSISTANCE IP CONSULT TO PHARMACY BEDSIDE DISCHARGE MED DELIVERY IMAGING / PROCEDURES / RESULTS: PERCUTANEOUS TRANSHEPATIC PORTAL VEIN-IP ONLY ABDOMINAL PARACENTESIS Should you require further information or copies of results or reports please contact Medical Information Management @ [phone] LABS AT TIME OF DISCHARGE: Lab Results [...] the patient was directed to go to [employer] for discounted medications PATIENT'S MEDICAL HOME AT DISCHARGE: Darlene Garibay [address] [place] / [place] [id number] MEDICATIONS: Medication List for when you go [...] Dept Phone 09/11/2023 1:00 PM Ken Garcia [facility] Arrive at: Arrive to Outpatient Surgery Center Registration [phone] 10/16/2023 11:30 AM Annabel Goetz [facility] Arrive at: Arrive to 1st Floor Registration [phone] 01/02/2024 10:30 AM Randal Vital [facility] Arrive at: Arrive to 1st Floor Registration [phone] Associated attestation - Seth Hines MD, MPH [...] home and will follow-up with her primary box sealing machine operator regarding next steps. Diuretics adjusted as follows: Lasix discontinued and started on torsemide 20mg bid. Home Aldactone continued. Midodrine increased to 15mg tid from 10mg tid to assist with hypotension. MELD 3.0 16. documented in this encounter [facility] 08-30-2023 Plan of care note Problem: PT [...] ROM, necessary for functional mobility. Outcome: Ongoing [facility] 08-30-2023 Plan of care note Problem: OT [...] to safely complete toileting. Outcome: Ongoing T [facility] 08-30-2023 Plan of care note Problem: Patient [...] active listening utilized verbalization of feelings encouraged [facility] 08-29-2023 Plan of care note Problem: Patient [...] Acute/Chronic (Adult) CPG). Outcome: Progressing Toward Goal [facility] 08-29-2023 Note Amber Manuel MD 3:32 PM [...] PGY-6 Toma Trent DO 08/29/2023 1:28 PM RESEARCH MICROBIOLOGIST(S): Amber Manuel MD (Attending); Toma Trent DO (Resident) CONSENT: Informed consent was obtained prior to the procedure after discussion of the risks, benefits, and alternatives of the procedure, and expected procedure outcomes were discussed with the patient and/or banking representative. The consent document was placed in chart. DID THIS PROCEDURE REQUIRE A UNIVERSAL PROTOCOL?: Yes. [place] Protocol is required. Preprocedure verification is complete. [...] Radiology to participate in this patient's care. [facility] 08-29-2023 Nurse Note Interventional Radiology TIPSS procedure [...] of clear yellow ascites removed during paracentesis. [facility] 08-28-2023 Plan of care note Problem: Patient Care Overview Goal: Plan of Care Review Outcome: Ongoing Goal: Individualization & Mutuality Outcome: Ongoing Goal: Discharge Needs Assessment Outcome: Ongoing Goal: Interdisciplinary Rounds/Family Conf Outcome: Ongoing [facility] 08-28-2023 Progress note Formatting of t his note might be different from the original. I certify that this patient requires inpatient services at this time. I anticipate the expected length of stay will include at least two midnights. Inpatient services are due to the following medical concerns TIPS. Plans for post hospitalization care will be discharge to home. [facility] 08-28-2023 History and physical note Internal Medicine Admission History & Physical Patient: Madhavi Neville Robbie, 1960, [id number] Physician: Tk Contreras MD, PGY1, Hepatology Service Date of face to face patient encounter: 08/28/2023. Chief Complaint: Planned Admission for TIPS History Of Present Illness: Madhavi Avalos is a 63 y.o. female with a history of decompensated [facility] cirrhosis c/b refractory ascites despite [...] chills, cough, melena, hematochezia, or hematemesis. Primary Chain Link Fence Installer Dr. Vital Etiology of Liver Disease [facility] cirrhosis MELD MELD 3.0: 14 [...] erythema Skin: No jaundice or rash Neuro: hatch boss 3-7, 9-11 intact and equal. Strength grossly [...] planned for 08/29/23. MELD 3.0 14. [facility] 08-28-2023 History and physical note Internal Medicine Admission History & Physical Patient: Madhavi Avalos, 1960, [id number] Physician: Tk Contreras MD, PGY1, Hepatology Service Date of face to face patient encounter: 08/28/2023. Chief Complaint: Planned Admission for TIPS History Of Present Illness: Madhavi Avalos is a 63 y.o. female with a history of decompensated [facility] cirrhosis c/b refractory ascites despite [...] chills, cough, melena, hematochezia, or hematemesis. Primary Chain Link Fence Installer Dr. Vital Etiology of Liver Disease [facility] cirrhosis MELD MELD 3.0: 14 [...] erythema Skin: No jaundice or rash Neuro: hatch boss 3-7, 9-11 intact and equal. Strength grossly [...] Ms. Avalos has a history of decompensated [facility] cirrhosis with refractory ascites admitted for planned TIPS. CT abdomen and ECHO findings reviewed; of note RSVP was unable to be estimated on ECHO. TIPS planned for 08/29/23. MELD 3.0 14. documented in this encounter [facility] 08-28-2023 Nurse Note Madhavi Avalos was admitted to [facility] from home. The patient reported all [...] Dr. Contreras notified of the patient's arrival. [facility] 08-28-2023 Nurse Note Patient arrived from home with family member. Dr. Contreras notified of arrival. [facility] 08-28-2023 Progress note Formatting of t his note might be different from the original. 08/28/2023 Notified room Ready @ 11:16 AM spoke to pt, will arrive to admitting @ now, pt is parking the car [facility] 08-27-2023 History of Presen t illness Narrative [...] Adequate hemostasis achieved. documented in this encounter [facility] 08-27-2023 History of Presen t illness Narrative CLINICAL CARE TEAM: -Referring Provider for today's consult: Self, Self -Primary Care Provider: Darlene Garibay HISTORY OF PRESENT ILLNESS: Madhavi Avalos is a 63 y.o. female who presents to the [facility] today for follow-up. I have reviewed her medical, surgical, and social history and have updated medication and allergy information in the computerized patient record. Madhavi Avalos has a history of decompensated [facility] cirrhosis c/b refractory ascites despite [...] y.o. female with a history of decompensated [facility] cirrhosis c/b refractory ascites despite diuretics and weekly paracentesis, EV s/p EBL. She will be admitted tomorrow for planned TIPS on 08/29 Plan [facility] Cirrhosis: MELD 3.0 14 from [...] Division of Gastroenterology, Hepatology, & Nutrition [facility] This nurse verified pts name and . documented in this encounter [facility] 08-10-2023 History of Presen t illness Narrative Met with patient(only speaks Swiss) and daughter (declined chorus dancer for me but chorus dancer phone available and used for ADRIANO and Doctor) in IR clinic today to discuss TIPS, reviewed patient medication list, allergies, and day of instructions for procedure. Pt gets weekly paracentesis at [facility] for last year. She was drained yesterday for 6.4 liters. Handouts given Patient verbalized understanding of all covered information. Patient will be scheduled for procedure with IR reporter. Pt sent to get labs and will need ECHO before procedure. documented in this encounter [facility] 08-10-2023 Instructions Haile Hammond - 08/10/2023 8:40 AM EDT INFORMATION REGARDING YOUR INTERVENTIONAL RADIOLOGY APPOINTMENT FOR PROCEDURE: Transjugular Intrahepatic Portosystemic Shunt (TIPS) with Dr Manuel DATE: 08/29/23. ARRIVAL TIME: 1:00pm on 08/28/23. CHECK IN: Admitting Office, [address] [place] [address], at the [facility] at the [facility], [address] [place] [address]. It is important to arrive on time [...] your appointment, please call our office at [phone] opt 1 at least 24 hours in [...] park in the hospital garages in the [facility] Garage [address] [place] [address] or [email or web address] [facility]. Sales Analytics Manager parking is available for $10 (tiwari only) at the main entrance of the [facility] and [facility]. Plan on being here approximately 3-5 days. [...] Radiology procedure. documented in this encounter [facility] 05-23-2023 History of Presen t illness Narrative [...] ASSESSMENT/PLAN: Madhavi Avalos is a 62 y.o. [facility] female with what appears to be decompensated HARRISON cirrhosis, who comes to the clinic today for a LT evaluation and for further management pts cell [phone] 1. Decompensated cirrhosis: - Etiology: NAFLD/HARRISON - [...] to clinic in 3 months Randal NEAL Perioperative Educator in Clinical Medicine Department of Internal medicine Pager:[phone] This nurse used chorus dancer [phone]. This nurse verified pts name and . [...] a wait list. documented in this encounter [facility] 05-23-2023 Instructions Randal Vital MD - 05/23/2023 [...] resistance training documented in this encounter [facility] 11-07-2022 History of Presen t illness Narrative Images from the original note were not included. Division of Gastroenterology, Hepatology and Nutrition HEP OP NOTE: HEPATOLOGY OUTPATIENT NOTE PRIMARY CARE PHYSICIAN: No primary care provider on file. REFERRING PROVIDER: Damian Estrada DO [address] [place] [phone] HEPATOLOGY/GI DIAGNOSIS: 1. Decompensated cirrhosis from HARRISON- [...] ILLNESS: Madhavi Avalos is a 62 y.o. [facility] female with what appears to [...] ASSESSMENT/PLAN: Madhavi Avalos is a 62 y.o. [facility] female with what appears to [...] Return to clinic in 3 Randal NEAL Perioperative Educator in Clinical Medicine Department of Internal medicine Pager:[phone] This SUPERVISOR DRILLING [employer] SHOOTING verified patient's name and through set rider #[id number]. documented in this encounter [facility] 11-07-2022 Instructions Randal Vital MD - 11/07/2022 [...] or resistance training documented in this encounter [facility] Diagnosis Decompensated hepatic cirrhosis [facility] Diagnosis Decompensated hepatic cirrhosis- Primary [facility] Diagnosis Other ascites [facility] Diagnosis Other ascites- Primary Other cirrhosis of liver Other ascites Other cirrhosis of liver Other ascites Other cirrhosis of liver [facility] Diagnosis Other ascites Other cirrhosis of liver Decompensated hepatic cirrhosis- Primary Other ascites Other cirrhosis of liver [facility] Diagnosis Other ascites Other ascites Other cirrhosis of liver [facility] Diagnosis Other ascites Other cirrhosis of liver Decompensated hepatic cirrhosis 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 [place] [address] [place] [address] [address] [place] [address] Referral ID Status Reason Start Date Expiration Date Visits Re quested Visits Authorized [id number] Closed 02/13/2023 03/09/2024 1 1 Specialty Diagnoses / Procedures Referred By Dorian romero Referred To Contact Diagnoses Decompensated hepatic cirrhosis Procedures US ABDOMEN RUQ/LIVER/GB Randal Vital MD [address] [place] [address] Referral ID Status Reason Start Date Expiration Date V isits Requested Visits Authorized [id number] New Request 05/23/2023 06/16/2024 1 1 Specialty Diagnoses / Procedures Referred By Contac t Referred To Contact Diagnoses Decompensated hepatic cirrhosis Procedures INTERVENTIONAL UPPER ENDOSCOPY INTERVENTIONAL UPPER ENDOSCOPY MD ESOPHAGOGASTRODUODENOSCOPY TRANSORAL DIAGNOSTIC Randal Vital MD [address] [place] [address] Referral ID Status Reason Start Date Expiration Date V isits Requested Visits Authorized [id number] New Request 05/23/2023 06/16/2024 1 1 Specialty Diagnoses / Procedures Referred By Contac t Referred To Contact Diagnoses Other ascites Procedures CT ABDOMEN/PELVIS WITH CONTRAST CHG CT SCAN,ABDOMENT AND PELVIS,W CONTRAST Randal Vital MD [address] [place] [address] Referral ID Status Reason Start Date Expiration Date V isits Requested Visits Authorized [id number] New Request 06/20/2023 07/14/2024 1 1 Specialty Diagnoses / Procedures Referred By Contac t Referred To Contact Diagnoses Other ascites Other cirrhosis of liver Procedures CASE REQUEST DEPARTMENT USE ONLY INTERVENTIONAL RADIOLOGY Haile Maldonado, ACCESS CONSULTANT-ANIMAL NURSERY WORKER [address] [place] [address] Referral ID Status Reason Start Date Expiration Date V isits Requested Visits Authorized [id number] New Request 08/10/2023 09/03/2024 1 1 Specialty Diagnoses / Procedures Referred By Contac t Referred To Contact Diagnoses Other ascites Procedures ECHOCARDIOGRAM MD ECHO HEART XTHORACIC,COMPLETE W DOPPLER Haile Maldonado, ACCESS CONSULTANT-ANIMAL NURSERY WORKER [address] [place] [address] Referral ID Status Reason Start Date Expiration Date V isits Requested Visits Authorized [id number] New Request 08/10/2023 09/03/2024 1 1 Specialty Diagnoses / Procedures Referred By Contac t Referred To Contact Echocardiography Diagnoses Other ascites Procedures ECHOCARDIOGRAM MD ECHO HEART XTHORACIC,COMPLETE W DOPPLER Haile Maldonado, ACCESS CONSULTANT-ANIMAL NURSERY WORKER [address] [place] [address] Echocardiography [facility] [address] [place] [address] Referral ID Status Reason Start Date Expiration Date Visits Re quested Visits Authorized [id number] Closed 08/10/2023 09/03/2024 1 1 Specialty Diagnoses / Procedures Referred By Contac t Referred To Contact Procedures DVT/VTE RISK ASSESSMENT Seth Hines MD, MPH [address] [place] [address] Referral ID Status Reason Start Date Expiration Date V isits Requested Visits Authorized [id number] New Request 08/28/2023 09/21/2024 1 1 Specialty Diagnoses / Procedures Referred By Contac t Referred To Contact Diagnoses 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 Procedures US ABDOMEN RUQ/LIVER/GB Annabel Goetz APRN-ANIMAL NURSERY WORKER [address] [place] [address] Referral ID Status Reason Start Date Expiration Date V isits Requested Visits Authorized [id number] New Request 10/16/2023 11/09/2024 1 1 Advance [...] [place] FriendDamian, [address] [place] [address] Referral ID Status Reason Start Date Expiration Date V isits Requested Visits Authorized [id number] New Request 03/17/2022 04/11/2023 1 1 Specialty Diagnoses / Procedures Referred By Contac t Referred To Contact Echocardiography Diagnoses Decompensated hepatic cirrhosis Procedures ECHOCARDIOGRAM MD ECHO HEART XTHORACIC,COMPLETE W DOPPLER Randal Vital MD [address] [place] [address] Echocardiography [place] [address] [place] [address] Referral ID Status Reason Start Date Expiration Date Visits Re quested Visits Authorized [id number] Closed 02/13/2023 03/09/2024 1 1 Reason Comments Follow-up Specialty Diagnoses / Procedures Referred By Contac t Referred To Contact Diagnoses Other ascites Procedures CT ABDOMEN/PELVIS WITH CONTRAST CHG CT SCAN,ABDOMENT AND PELVIS,W CONTRAST Randal iVtal MD [address] [place] [address] Referral ID Status Reason Start Date Expiration Date V isits Requested Visits Authorized [id number] New Request 06/20/2023 07/14/2024 1 1 Reason Comments Consult Specialty Diagnoses / Procedures Referred By Contac t Referred To Contact Interventional Radiology Diagnoses Decompensated hepatic cirrhosis Randal Vital MD [address] [facility] [place] [address] [place] [address] Referral ID Status Reason Start Date Expiration Date V isits Requested Visits Authorized [id number] New Request 06/18/2023 07/12/2024 1 1 Reason Comments Follow-up Concerns with throat Specialty Diagnoses / Procedures Referred By Contac t Referred To Contact Echocardiography Diagnoses Other ascites Procedures ECHOCARDIOGRAM MD ECHO HEART XTHORACIC,COMPLETE W DOPPLER Haile Maldonado, ACCESS CONSULTANT-ANIMAL NURSERY WORKER [address] [place] [address] Echocardiography [facility] [address] [facility] [place] [address] [place] [address] Referral ID Status Reason Start Date Expiration Date Visits Re quested Visits Authorized [id number] Closed 08/10/2023 09/03/2024 1 1 Specialty Diagnoses / Procedures Referred By Contac t Referred To Contact Diagnoses Other ascites Other cirrhosis of liver Other ascites [R18.8] Other cirrhosis of liver [K74.69] Procedures MD INSERT TRANSVEN INTRAHEP PORTOSYS SHUNT MD ABDOM PARACENTESIS DX/THER W IMAGING GUIDANCE INSERTION SHUNT TRANSVENOUS INTRAHEPATIC PORTOSYSTEMIC PERCUTANEOUS (TIPS) PARACENTESIS ABDOMINAL W/ IMAGING GUIDANCE Seth Hines MD, MPH [address] [address] [facility] [address] [place] [address] Referral ID Status Reason Start Date Expiration Date Visits Re quested Visits Authorized [id number] 1 1 Reason Comments Post-Discharge Follow Up Care Teams (unrecognized sec tion and content) Aircraft Log Clerk Relationship Specialty Start Date End Date Darlene Garibay MD [address] [place] [place] [address] PCP - General Family Medicine 05/23/23 Aircraft Log Clerk Relationship Specialty Start Date End Date Darlene Garibay MD [address] [place] [place] [address] PCP - General Family Medicine 05/23/23 Aircraft Log Clerk Relationship Specialty Start Date End Date Darlene Garibay MD [address] [place] [address] PCP - General Family Medicine 05/23/23 Aircraft Log Clerk Relationship Specialty Start Date End Date Darlene Garibay MD [address] [place] [place] [address] PCP - General Family Medicine 05/23/23 Scheduled Active and Recently Administ ered Medications (unrecognized section and content) Continuous Medication Order 08/28/2023 08/29/2023 08/30/2023 albumin human 5 % injection 25 g 25 g, Intravenous, CONTINUOUS, Starting on Sun08/29/23 at 0700, Until Sun08/30/23 at 1842, Indications: Fluid Resuscitation, Intra-op/Intra-Proc 0946 (Given - Provider: VALENTÍN GrullonCOMMAND POST SUPERINTENDENT) PRN Medication Order 08/28/2023 08/29/2023 08/30/2023 Acetaminophen [...] 3 g, Intravenous, Administer over 30 Minutes, AN/SYQ 13 NAV/C2 OPERATOR TO PROCEDURE, 1 dose, Starting on Sun08/29/23 [...] BE BASED ON THE PRIMARY CLINICAL RECORDS. [facility] [employer] [facility]. provides no warranty or guarantee of the accuracy or completeness of information in this document.
[2023-12-06 13:06] VITALS: BP 90/54; PULSE 96
== END | disposition home or self-care (01) ==
LOC: US 10:07
PROVIDERS: PCP Family Medicine; Referring Provider Internal Medicine Gastroenterology; Visit Provider Internal Medicine Gastroenterology
DX: K75.81 Nonalcoholic steatohepatitis (NASH) (principal)
CPT/HCPCS: 96365; 96366; 49083; P9047; A4216

== ENCOUNTER → 2023-12-13 | Outpatient (CLI) | payer SELFPAY ==
[2023-12-13 10:34] VITALS: BP 104/63; PULSE 100; RESP 16; TEMP 36.6; O2SAT 98
[2023-12-13] MEDS: Lidocaine 2% (20 ml mdv) 20 ML Vial INFILT (10:39)
[2023-12-13 10:45] VITALS: BP 98/62; PULSE 98; RESP 16; O2SAT 98
[2023-12-13 11:00] VITALS: BP 103/64; PULSE 98; RESP 16; O2SAT 97
[2023-12-13 11:15] VITALS: BP 99/57; PULSE 99; RESP 16; O2SAT 96
--- NOTE | 2023-12-13 11:27 | PRO.PCM_ITS ---
Procedure Report Date of Procedure: 12/13/23 Assessment & Plan Assessment/Plan (1) Abdominal ascites: QUALIFIERS: Ascites type: other type Qualified Code(s): R18.8 - Other ascites PLAN: PROCEDURE: Ultrasound guided paracentesis ORDERING PROVIDER: Dr. Estrada INDICATION: Female, 63 years old. Abdominal ascites. PROVIDER: VANCE Painting TECHNIQUE: The risks, benefits, and alternatives to the procedure were explained to the patient and daughter. The specific risks of bleeding, infection, and damage to bowel were detailed and accepted. Witnessed informed consent was obtained. The abdomen was ultrasonographically surveyed. An appropriate pocket of fluid was identified in the left lower quadrant. The skin was prepped with chlorhexidine and sterile field established. 2% lidocaine was used for local anesthetic. Using ultrasound guidance, the peritoneal cavity was accessed with a 5-Mongolian paracentesis needle/catheter system. The trocar was removed. A total of 5850 ml of clear yellow colored fluid was removed from the peritoneal cavity. The catheter was removed and a sterile dressing was applied. The procedure was well tolerated. IMPRESSION: Successful ultrasound-guided paracentesis with left lower quadrant access site. Procedures Radiology Radiology US Procedures: 75493 Paracentesis
[2023-12-13 11:31] VITALS: BP 110/63; PULSE 101; RESP 18; TEMP 36.4; O2SAT 97
[2023-12-13] MEDS: Albumin Human 25% (100 mL) 25 GM/100 ML BAG IV (11:36)
[2023-12-13] MEDS: 0.9% NaCl Peripheral Flush Adult/Peds IV (11:36)
[2023-12-13] MEDS: Albumin Human 25% (50 mL) 12.5 GM/50 ML IV.SOLN IV (13:00)
[2023-12-13 14:00] VITALS: BP 102/55; PULSE 99
== END | disposition home or self-care (01) ==
LOC: US 10:03
PROVIDERS: PCP Family Medicine; Referring Provider Internal Medicine Gastroenterology; Visit Provider Internal Medicine Gastroenterology
DX: K75.81 Nonalcoholic steatohepatitis (NASH) (principal)
CPT/HCPCS: 96365; 96366; 49083; J7050; P9047

== ENCOUNTER → 2023-12-17 | Outpatient (CLI) | payer SELFPAY ==
--- NOTE | 2023-12-17 | FLU_PTH ---
PATHOLOGY RESULTS PATIENT: KIERRA FLOWER #:[id number] LOC: [facility]#:[id number] AGE/SX: 63/F ROOM: RE12/17/[address]: Dr. Darlene Garibay MD : 1960 BED: DIS: 12/17/2023 SPEC #: [id number] RECD: 12/17/23 11:53 STATUS: FAHAD NGUYEN #: [id number] SERGEI: 12/17/23 00:[address]: Darlene Garibay DEPT: CYTOLOGY RECD BY: Sonia Echevarria ENTERED: 12/17/23 11:54 SP TYPE: Fluid Tissues: THORACIC FLUID Procedures: Special Stain Group II Surgery Specimen Level IV Cytospin Fluid HEADER OPERATION: Ultrasound-guided right thoracentesis PRE-OP DIAGNOSIS: Right pleural effusion TISSUE SUBMITTED: Thoracentesis fluid for cytology DIAGNOSIS CYTOLOGY Thoracentesis fluid for cytology (cytospin and cell block): Negative for malignant cells. AM:colby 12/18/2023 CYTOLOGY STUDY Slides are reviewed. CYTOLOGY GROSS Received is 92 ml of yellow cloudy fluid labeled with the patient's name and and designated per the requisition as thoracentesis. Submitted for cytology preparation including cell block. / colby 12/17/2023 TC:5 CPT: 59467, 68210
[2023-12-17 09:52] VITALS: BP 85/40; PULSE 88; RESP 18; TEMP 36.8; O2SAT 99
[2023-12-17] MEDS: Lidocaine 2% (20 ml mdv) 20 ML Vial INFILT (10:00)
--- OUTSIDE RECORDS SUMMARY | 2023-12-17 10:06 | XMS RPT_ITS | CCD ---
Author Name Unknown Address [address] [place] [address] Organization [facility] Care Team Providers Care Adult Education Teacher Name Role Phone Unavailable Primary Care Provider Unavailjairo Garibay MD, [place] Primary Care Provider [phone] AARON ESOPUS Primary Care Unavailable HAILE MALDONADO Attending Unavailable HAILE MALDONADO Referring Unavailable NEPTALI, CHATHUR Referring Unavailable NEPTALI, CHATHUR Referring Unavailable SETH HINES Admitting Unavailable SETH HINES Attending Unavailable [facility] Primary Care Unavailable SELF, SELF Referring Unavailable ANNABEL GOETZ Attending Unavailable [facility] Primary Care Unavailable ANNABEL GOETZ Attending Unavailable [facility] Primary Care Unavailable SELF, SELF Referring Unavailable [facility] Primary Care Unavailable NEPTALI, CHATHUR Referring Unavailable [facility] Primary Care Unavailable MANUEL AMBER Attending Unavailable NEPTALI, CHATHUR Referring Unavailable NEPTALI, CHATHUR Attending Unavailable [facility] Primary Care Unavailable NEPTALI, CHATHUR Attending Unavailable SELF, SELF Referring Unavailable SELF, SELF Referring Unavailable NEPTALI, CHATHUR Attending Unavailable NEPTALI, CHATHUR Referring Unavailable NEPTALI, CHATHUR Attending Unavailable NEPTALI, CHATHUR Attending Unavailable [facility] Primary Care Unavailable SELF, SELF Referring Unavailable SELF, SELF Referring Unavailable NEPTALI, CHATHUR Attending Unavailable SELF, SELF Referring Unavailable BUTNARIU, KEN I Attending Unavailable NEPTALI, CHATHUR Referring Unavailable [facility] Primary Care Unavailable SELF, SELF Referring Unavailable [...] Acetaminophen (TYLENOL) tablet 650 mg Albumin Human, [facility] (2 sources) Human Serum Albumin Start: 08-29-2023 [...] [Ratio] 31.91 kg/m2 Annabel WOODARD Work Phone: [facility] 10-16-2023 10:59-0500 Body weight 76.61 kg Annabel WOODARD Work Phone: [facility] 10-16-2023 10:59-0500 Diastolic blood pressure 58 mm[Hg] Annabel WOODARD Work Phone: [facility] 10-16-2023 10:59-0500 Heart rate 103 /min Annabel WOODARD Work Phone: [facility] 10-16-2023 10:59-0500 SaO2% (BldA) [Mass fraction] 98 % Annabel WOODARD Work Phone: [facility] 10-16-2023 10:59-0500 Systolic blood pressure 98 mm[Hg] Annabel Goetz [employer] Work Phone: [facility] 08-30-2023 13:44-0400 Body temperature 97.39 [degF] Seth Hines MD, MPH Work Phone: [facility] 08-30-2023 13:44-0400 Diastolic blood pressure 52 mm[Hg] Seth Hines MD, MPH Work Phone: [facility] 08-30-2023 13:44-0400 Heart rate 65 /min Seth Hines MD, MPH Work Phone: [facility] 08-30-2023 13:44-0400 Respiratory rate 16 /min Seth Hines MD, MPH Work Phone: [facility] 08-30-2023 13:44-0400 SaO2% (BldA) [Mass fraction] 97 % Seth Hines MD, MPH Work Phone: [facility] 08-30-2023 13:44-0400 Systolic blood pressure 95 mm[Hg] Seth Hines MD, MPH Work Phone: [facility] 08-28-2023 11:49-0400 Body height 154.9 cm Seth Hines MD, MPH Work Phone: [facility] 08-28-2023 11:49-0400 Body mass index (BMI) [Ratio] 32.9 kg/m2 Seth Hines MD, MPH Work Phone: [facility] 08-28-2023 11:49-0400 Body weight 78.97 kg Seth Hines MD, MPH Work Phone: [facility] 08-27-2023 13:10-0400 Body height 160 cm Haile Maldonado [employer] Work Phone: [facility] 10-30-2023 13:10-0400 Body mass index (BMI) [Ratio] 30.47 kg/m2 Haile Erica [employer] Work Phone: [facility] 08-27-2023 13:10-0400 Body weight 78 kg Haile Erica [employer] ENGINEER Work Phone: [facility] 08-27-2023 13:10-0400 Diastolic blood pressure 62 mm[Hg] Haile Maldonado [employer] Work Phone: [facility] 08-27-2023 13:10-0400 Heart rate 80 /min Haile Maldonado [employer] Work Phone: 3(444)[phone] [place] [address] 08-27-2023 13:10-0400 Systolic blood pressure 94 mm[Hg] Haile Maldonado [employer] Work Phone: 2(649)[phone] [place] [address] 08-27-2023 08:36-0400 Body height 160 cm Annabel Goetz [employer]INE[employer] Work Phone: [facility] 08-27-2023 08:36-0400 Body mass index (BMI) [Ratio] 30.47 kg/m2 Annabel Goetz [employer] Work Phone: [facility] 08-27-2023 08:36-0400 Body weight 78.02 kg Annabel Goetz [employer]INE[employer] Work Phone: [facility] 08-27-2023 08:36-0400 Diastolic blood pressure 62 mm[Hg] Annabel Goetz [employer] Work Phone: [facility] 08-27-2023 08:36-0400 Heart rate 80 /min Annabel Goetz [employer]INE[employer] Work Phone: [facility] 08-27-2023 08:36-0400 SaO2% (BldA) [Mass fraction] 95 % Annabel Goetz [employer]INE[employer] Work Phone: [facility] 08-27-2023 08:36-0400 Systolic blood pressure 94 mm[Hg] Annabel Goetz VANCE Work Phone: [facility] 08-10-2023 08:43-0400 Body temperature 97.81 [degF] [facility] 08-10-2023 08:43-0400 Diastolic blood pressure 57 mm[Hg] [facility] 08-10-2023 08:43-0400 Heart rate 84 /min [facility] 08-10-2023 08:43-0400 SaO2% (BldA) [Mass fraction] 97 % [facility] 08-10-2023 08:43-0400 Systolic blood pressure 107 mm[Hg] [facility] Jakub [facility] 07-05-2023 17:18-0400 Body height 160 cm Randal Vital MD Work Phone: [facility] 07-05-2023 17:18-0400 Body mass index (BMI) [Ratio] 28.34 kg/m2 Randal Vital MD Work Phone: [facility] 07-05-2023 17:18-0400 Body weight 72.58 kg Randal Vital MD Work Phone: [facility] 07-05-2023 17:18-0400 Diastolic blood pressure 57 mm[Hg] Randal Vital MD Work Phone: [facility] 07-05-2023 17:18-0400 Heart rate 74 /min Randal Vital MD Work Phone: [facility] 07-05-2023 17:18-0400 Systolic blood pressure 96 mm[Hg] Randal Vital MD Work Phone: [facility] 05-23-2023 09:47-0400 Body height 159.8 cm Randal Vital MD Work Phone: [facility] 05-23-2023 09:47-0400 Body mass index (BMI) [Ratio] 31.22 kg/m2 Randal Vital MD Work Phone: [facility] 05-23-2023 09:47-0400 Body weight 79.7 kg Randal Vital MD Work Phone: 7(885)[phone] [place] [address] 05-23-2023 09:47-0400 Diastolic blood pressure 62 mm[Hg] Randal Vital MD Work Phone: 1(930)[phone] [place] [address] 05-23-2023 09:47-0400 Heart rate 78 /min Randal Vital MD Work Phone: 6(962)[phone] [place] [address] 05-23-2023 09:47-0400 Respiratory rate 16 /min Randal Vital MD Work Phone: [facility] 05-23-2023 09:47-0400 SaO2% (BldA) [Mass fraction] 99 % Randal Vital MD Work Phone: [facility] 05-23-2023 09:47-0400 Systolic blood pressure 104 mm[Hg] Randal Vital MD Work Phone: 4(946)[phone] [place] [address] 02-26-2023 13:27-0400 Body height 160 cm Randal Vital MD Work Phone: 3(841)[phone] [place] [address] 02-26-2023 13:27-0400 Body mass index (BMI) [Ratio] 33.16 kg/m2 Randal Vital MD Work Phone: [facility] 02-26-2023 13:27-0400 Body weight 84.9 kg Randal Vital MD Work Phone: [facility] 02-26-2023 13:27-0400 Diastolic blood pressure 78 mm[Hg] Randal Vital MD Work Phone: [facility] 02-26-2023 13:27-0400 Systolic blood pressure 112 mm[Hg] Randal Vital MD Work Phone: [facility] 11-07-2022 16:13-0500 Body height 157.5 cm Randal Vital MD Work Phone: [facility] 11-07-2022 16:13-0500 Body mass index (BMI) [Ratio] 34.2 kg/m2 Randal Vital MD Work Phone: [facility] 11-07-2022 16:13-0500 Body weight 84.82 kg Randal Vital MD Work Phone: [facility] 11-07-2022 16:13-0500 Diastolic blood pressure 70 mm[Hg] Randal Vital MD Work Phone: [facility] 11-07-2022 16:13-0500 Heart rate 88 /min Randal Vital MD Work Phone: [facility] 11-07-2022 16:13-0500 Respiratory rate 18 /min Randal Vital MD Work Phone: [facility] 11-07-2022 16:13-0500 SaO2% (BldA) [Mass fraction] 98 % Randal Vital MD Work Phone: [facility] 11-07-2022 16:13-0500 Systolic blood pressure 102 mm[Hg] Randal Vital MD Work Phone: [facility] Encounters Encounter Date Encounter Type Care Provider Facility Start: 10-16-2023 End: 10-16-2023 Office outpatient visit 25 minutes Annabel Goetz [employer] Work Phone: [facility] [place] Procedures Date Procedure Procedure Detail Performing Clinician Start: 08-30-2023 Assay of magnesium Will kenya Contreras MD Work Phone: Start: 08-30-2023 Hepatic function panel Tk Contreras MD Work Phone: Start: 08-29-2023 GENERAL PROCEDURE Ediliachriss Trent DO Work Phone: Start: 08-29-2023 End: 08-29-2023 Creatinine blood Marilia NEAL Work Phone: Start: 08-29-2023 End: 08-29-2023 TRANSFUSE OR PLASMA Allan Levin [employer] Start: 08-29-2023 Bilirubin direct Wally Contreras MD Work Phone: Start: 08-28-2023 ABORH TYPE RECONFIRMATION Daniel May MD Work Phone: Start: 08-28-2023 End: 08-28-2023 Antibody screen Seth Hines MD, MPH Work Phone: Plan of Treatment Date Care Activity Detail Author Start: 10-16-2024 Potassium [Moles/volume] in Serum or Plasma POTASSIUM [facility] Start: 08-27-2024 Potassium [Moles/volume] in Serum or Plasma POTASSIUM [facility] Start: 08-10-2024 Potassium [Moles/volume] in Serum or Plasma POTASSIUM [facility] Start: 05-23-2024 Potassium [Moles/volume] in Serum or Plasma POTASSIUM [facility] Start: 02-27-2024 Potassium [Moles/volume] in Serum or Plasma POTASSIUM [facility] Start: 01-02-2024 End: 01-02-2024 Patient encounter procedure 01/02/2024 10:30 AM EST Office Visit [facility] [place] [address] [place] [address] Randal Vital MD [address] [place] [address] [facility] [place] Start: 12-28-2023 End: 10-16-2024 US Abdomen RUQ US ABDOMEN RUQ/LIVER/GB Imaging Routine 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 Expected: 12/28/2023 (Approximate), Expires: 10/16/2024 [facility] Immunizations Immunization Date Immunization Notes Care Provider Fa luceroty 05-23-2023 Pneumococcal Conjuga te 20-Valent Vaccine Randal Vital MD Work Phone: [facility] Social History Date Type Detail Facility Start: 11-07-2022 Tobacco smoking stat us HIIS Never smoked tobacco [facility] Start: 11-07-2022 Tobacco use and exposure Smokeless tobacco non-user [facility] Start: 11-07-2022 End: 10-16-2023 Alcohol intake Lifetime non-drinker (finding) [facility] Start: 1960 Sex Assigned At Not on file O [facility] Start: 10-28-2022 End: 11-07-2022 Exposure to SARS-CoV-2 (event) Unable to assess [facility] Start: 05-23-2023 End: 10-16-2023 History of Social function [facility] Start: 05-23-2023 End: 10-16-2023 Tobacco use panel [facility] Clinical Notes 11-07-2022 to 10-16-2023 VANCE [...] 63 y.o. female who presents to the [facility] today for follow-up. I have reviewed her medical, surgical, and social history and have updated medication and allergy information in the computerized patient record. Madhavi Avalos has a history of decompensated [facility] cirrhosis c/b refractory ascites [...] Laterality: N/A; Surgeon: Amber Manuel MD; Location: [facility] INTERVENTIONAL RADIOLOGY (VIR) PARACENTESIS ABDOMINAL W/ IMAGING GUIDANCE N/A 08/29/2023 Laterality: N/A; Surgeon: Amber Manuel MD; Location: [facility] INTERVENTIONAL RADIOLOGY (VIR) ESOPHAGOSCOPY [...] y.o. female with a history of decompensated [facility] cirrhosis c/b refractory ascites [...] diuretic refractory ascites requiring weekly paracentesis. Plan [facility] Cirrhosis: MELD 3.0 16 [...] Division of Gastroenterology, Hepatology, & Nutrition [facility] This nurse used print press operator [id number]. This nurse verified pts name and . documented in this encounter [facility] 08-30-2023 History of Presen t illness Narrative Images from the original note were not included. [facility] ([facility]) Note: Bedside Delivery Documentation The following prescription(s) were delivered to the patient's bedside. Michelet Wright [facility] ([place]) [phone] [facility] [phone] [facility] Bedside Delivery [phone] [facility] [phone] [facility] Bedside Delivery [phone] Jakub [phone] [facility] Bedside Delivery [phone] [place] [phone] [place] [phone] Images from the original note were not included. [facility] ([facility] Note: Non-Verbal Med Rec [facility] received the following discharge prescription(s): Total cost is $0.00. I have reviewed the Discharge Rx Reconciliation Report. The discharge prescription(s) will be delivered to the patient on 08/30/2023. [facility] ([place]) [phone] [facility] [phone] [facility] Bedside Delivery [phone] [facility] [phone] [facility] Bedside Delivery [phone] Jakub [phone] [facility] Bedside Delivery [phone] [place] [phone] [place] [phone] Final Discharge Planning and Transportation Final Discharge [...] contacted related to barriers Nadira Mauricio RN, STATION ATTENDANT-S, ACM R 9 E Clinical [employer] Telephone # available in Treatment team. Also available via Secure Chat. Acute Physical Therapy Evaluation Prior to Admission [facility] score(s): PRIOR LEVEL AM-PAC Mobility Raw [...] agreeable to PT treatment with RN approval. American speaking- daughter present and assists with translation [...] intact Mobility Assessment: Supine to Sit Mobility Bennett Level: Supine->Sit: modified independence Bed Features/Set-up: Supine->Sit: Head of bed elevated Skilled Rationale: Verbal cues, Initiation and execution of task Sit to Supine Mobility Bennett Level: Sit->Supine: modified independence Bed Features/Set-up: Sit->Supine: [...] device Transfer Assessment: Sit to Stand Transfer Bennett Level: Sit->Stand: stand-by assist Assistive Device: Sit->Stand: gait belt Skilled Rationale: Verbal cues, Initiation and execution of task Skilled Intervention/Details: Sit->Stand: X1 EOB Stand to Sit Transfer Bennett Level: Stand->Sit: stand-by assist Assistive Device: Stand->Sit: gait belt Skilled Rationale: Sequencing, Hand placement, Verbal cues, Controlled descent for sitting Gait/Functional Mobility: Gait Assessment Bennett Level: Gait: stand-by assist Assistive Device: Gait: [...] to optimize gait mechanics Stairs: Stairs Assessment Bennett Level: Stair Negotiation: not tested Outcome Score(s): CURRENT [facility] Basic Mobility Inpatient Short Form Turning [...] a railin - A Little Assistance CURRENT [facility] Mobility Raw Score: 20 CURRENT [facility] Mobility Functional Limitation/Modifier: 35.83% Currently Impaired [...] Edema: Mobility Assessment: Supine to Sit Mobility Bennett Level: Supine->Sit: supervision Bed Features/Set-up: Supine->Sit: Head of bed elevated Sit to Supine Mobility Bennett Level: Sit->Supine: supervision Bed Features/Set-up: Sit->Supine: Head of bed elevated Transfer Assessment: Sit to Stand Transfer Bennett Level: Sit->Stand: stand-by assist Assistive Device: Sit->Stand: 2 wheeled walker Skilled Rationale: Cues for increased safety, Full extension to upright positioning/posture Stand to Sit Transfer Bennett Level: Stand->Sit: stand-by assist Assistive Device: Stand->Sit: 2 wheeled walker Functional Mobility: Functional Mobility Bennett Level: Functional Mobility/Gait: stand-by assist Assistive Device: Functional Mobility/Gait: 2 wheeled walker Functional Mobility Distance: Distance needed for common household mobility Functional Mobility Deficits: Activity tolerance, Balance, Generalized weakness, Slowed gait speed Functional Mobility Skilled Rationale: Cues for increased safety, Walker management/safety Skilled Intervention/Details - Functional Mobility/Gait: Min cueing for safety, navigation around environmental hazards Outcome Score(s): CURRENT [facility] Daily Activity Inpatient Short Form Putting on/Taking Off Lower Body Clothin - A Little Assistance Bathin - A Little Assistance Toiletin - A Little Assistance Putting on/Taking Off Upper Body Clothin - A Little Assistance Groomin - A Little Assistance Eatin - No Assistance CURRENT [facility] Activity Raw Score: 19 CURRENT [facility] Activity Functional Limitation/Modifier: 42.80% Currently Impaired in Daily Activity - CK Interventions: Assessment & Plan: [facility] and seen for therapy evaluation related [...] Daily Progress Note Patient: Madhavi Avalos, 1960, [id number] Physician: Tk Contreras MD, Hepatology Service Assessment/Plan: Madhavi Avalos is a 63 y.o. female with a history of decompens[facility] c/b refractory ascites despite diuretics and weekly paracentesis, EV s/p EBL. Admitted for a planned TIPS on 08/29/2023. [facility] Cirrhosis S/p attempted TIPS [...] to discuss her case with the attending head men's golf coach, what the next steps would be, and [...] is here for planned TIPS procedure. Qualified print press operator was present as primary print press operator to interpret during the following: admission. The primary print press operator resource was qualified telephonic print press operator: ID # [id number] Initial Discharge Planning Anticipated discharge disposition: Home [...] none Legal Next of Kin: Brent Stone [phone] 2. daughter Fara Neville [phone] Financial Resources Insurance: No Prescription Coverage: No [...] planning and care coordination. Nadira Mauricio RN, STATION ATTENDANT-S, ACM R 9 E [facility] [employer] Telephone # available in Treatment team. Also available via Secure Chat. documented in this encounter [facility] 08-30-2023 Nurse Note Handout in American on cirrhosis/low salt diet given to patient and family prior to discharge today. Pt scheduled for hospital follow up with Annabel Goetz NP on 10/16/23. [facility] 08-30-2023 Miscellaneous Notes Handout in American on cirrhosis/low salt diet given to patient [...] to home. Madhavi Avalos was admitted to [facility] from home. The patient reported all [...] the car documented in this encounter [facility] 08-30-2023 Hospital Discharg e instructions [...] note that you should obtain refills from [employer] using GoodRx coupons to get these medications [...] Care Everywhere.Torsemide Oral Tablet (TORSEMIDE - ORAL) (American)documented in this encounter [facility] 08-30-2023 Hospital course Narrative Discharge [...] during her recent hospital stay at [facility]. As you may know, Madhavi Avalos [...] providers found Division of Hospital Medicine p: [phone] f: [phone] CONSULTS DURING ADMISSION: IP CONSULT TO PHYSICAL THERAPY IP CONSULT TO OCCUPATIONAL THERAPY IP CONSULT TO PHARMACY MEDICATION ASSISTANCE IP CONSULT TO PHARMACY BEDSIDE DISCHARGE MED DELIVERY IMAGING / PROCEDURES / RESULTS: PERCUTANEOUS TRANSHEPATIC PORTAL VEIN-IP ONLY ABDOMINAL PARACENTESIS Should you require further information or copies of results or reports please contact Medical Information Management @ [phone] LABS AT TIME OF DISCHARGE: Lab Results [...] the patient was directed to go to Field Agent for discounted medications PATIENT'S MEDICAL HOME AT DISCHARGE: Darlene Garibay [address] [address] / [place] [phone] MEDICATIONS: Medication List for when you go [...] Dept Phone 09/11/2023 1:[address] [facility] Arrive at: Arrive to Outpatient Surgery Center Registration [phone] 10/16/2023 11:30 AM Annabel Goetz [facility] [place] Arrive at: Arrive to 1st Floor Registration [phone] 01/02/2024 10:30 AM Randal Vital [facility] [place] Arrive at: Arrive to 1st Floor Registration [phone] Associated attestation - Seth Hines MD, MPH [...] home and will follow-up with her primary head men's golf coach regarding next steps. Diuretics adjusted as follows: Lasix discontinued and started on torsemide 20mg bid. Home Aldactone continued. Midodrine increased to 15mg tid from 10mg tid to assist with hypotension. MELD 3.0 16. documented in this encounter [facility] 08-30-2023 Plan of care note [...] ROM, necessary for functional mobility. Outcome: Ongoing [facility] 08-30-2023 Plan of care note Problem: [...] to safely complete toileting. Outcome: Ongoing T [facility] 08-30-2023 Plan of care note Problem: [...] active listening utilized verbalization of feelings encouraged [facility] 08-29-2023 Plan of care note Problem: [...] Acute/Chronic (Adult) CPG). Outcome: Progressing Toward Goal [facility] 08-29-2023 Note Amber Manuel MD 3:32 [...] PGY-6 Toma Trent DO 08/29/2023 1:28 PM HAM DOCTOR(S): Amber Manuel MD (Attending); Toma Trent DO (Resident) CONSENT: Informed consent was obtained prior to the procedure after discussion of the risks, benefits, and alternatives of the procedure, and expected procedure outcomes were discussed with the patient and/or access representative. The consent document was placed in chart. DID THIS PROCEDURE REQUIRE A UNIVERSAL PROTOCOL?: Yes. [place] Protocol is required. Preprocedure verification is complete. [...] Radiology to participate in this patient's care. [facility] 08-29-2023 Nurse Note Interventional Radiology TIPSS [...] of clear yellow ascites removed during paracentesis. [facility] 08-28-2023 Plan of care note Problem: Patient Care Overview Goal: Plan of Care Review Outcome: Ongoing Goal: Individualization & Mutuality Outcome: Ongoing Goal: Discharge Needs Assessment Outcome: Ongoing Goal: Interdisciplinary Rounds/Family Conf Outcome: Ongoing [facility] 08-28-2023 Progress note Formatting of t his note might be different from the original. I certify that this patient requires inpatient services at this time. I anticipate the expected length of stay will include at least two midnights. Inpatient services are due to the following medical concerns TIPS. Plans for post hospitalization care will be discharge to home. [facility] 08-28-2023 History and physical note Internal Medicine Admission History & Physical Patient: Madhavi Neville Robbie, 1960, [id number] Physician: Tk Contreras MD, PGY1, Hepatology Service Date of face to face patient encounter: 08/28/2023. Chief Complaint: Planned Admission for TIPS History Of Present Illness: Madhavi Avalos is a 63 y.o. female with a history of decompensated [facility] cirrhosis c/b refractory ascites [...] chills, cough, melena, hematochezia, or hematemesis. Primary Chopped Strand Operator Dr. Vital Etiology of Liver Disease [facility] cirrhosis MELD MELD 3.0: [...] erythema Skin: No jaundice or rash Neuro: roundhouse supervisor 3-7, 9-11 intact and equal. Strength grossly [...] planned for 08/29/23. MELD 3.0 14. [facility] 08-28-2023 History and physical note Internal Medicine Admission History & Physical Patient: Madhavi Avalos, 1960, [id number] Physician: Tk Contreras MD, PGY1, Hepatology Service Date of face to face patient encounter: 08/28/2023. Chief Complaint: Planned Admission for TIPS History Of Present Illness: Madhavi Avalos is a 63 y.o. female with a history of decompensated [facility] cirrhosis c/b refractory ascites [...] chills, cough, melena, hematochezia, or hematemesis. Primary Chopped Strand Operator Dr. Vital Etiology of Liver Disease [facility] cirrhosis MELD MELD 3.0: [...] erythema Skin: No jaundice or rash Neuro: roundhouse supervisor 3-7, 9-11 intact and equal. Strength grossly [...] Ms. Avalos has a history of decompensated [facility] cirrhosis with refractory ascites admitted for planned TIPS. CT abdomen and ECHO findings reviewed; of note RSVP was unable to be estimated on ECHO. TIPS planned for 08/29/23. MELD 3.0 14. documented in this encounter [facility] 08-28-2023 Nurse Note Madhavi Avalos was admitted to [facility] from home. The patient reported all [...] Dr. Contreras notified of the patient's arrival. [facility] 08-28-2023 Nurse Note Patient arrived from home with family member. Dr. Contreras notified of arrival. [facility] 08-28-2023 Progress note Formatting of t his note might be different from the original. 08/28/2023 Notified room Ready @ 11:16 AM spoke to pt, will arrive to admitting @ now, pt is parking the car [facility] 08-27-2023 History of Presen t illness [...] Adequate hemostasis achieved. documented in this encounter [facility] 08-27-2023 History of Presen t illness Narrative CLINICAL CARE TEAM: -Referring Provider for today's consult: Self, Self -Primary Care Provider: Darlene Garibay HISTORY OF PRESENT ILLNESS: Madhavi Avalos is a 63 y.o. female who presents to the [facility] today for follow-up. I have reviewed her medical, surgical, and social history and have updated medication and allergy information in the computerized patient record. Madhavi Avalos has a history of decompensated [facility] cirrhosis c/b refractory ascites [...] y.o. female with a history of decompensated [facility] cirrhosis c/b refractory ascites despite diuretics and weekly paracentesis, EV s/p EBL. She will be admitted tomorrow for planned TIPS on 08/29 Plan [facility] Cirrhosis: MELD 3.0 14 [...] Division of Gastroenterology, Hepatology, & Nutrition [facility] This nurse verified pts name and . documented in this encounter [facility] 08-10-2023 History of Presen t illness Narrative Met with patient(only speaks American) and daughter (declined print press operator for me but print press operator phone available and used for ADRIANO and Doctor) in IR clinic today to discuss TIPS, reviewed patient medication list, allergies, and day of instructions for procedure. Pt gets weekly paracentesis at [facility] for last year. She was drained yesterday for 6.4 liters. Handouts given Patient verbalized understanding of all covered information. Patient will be scheduled for procedure with IR outsole scheduler. Pt sent to get labs and will need ECHO before procedure. documented in this encounter [facility] 08-10-2023 Instructions Haile Hammond - 08/10/2023 8:40 AM EDT INFORMATION REGARDING YOUR INTERVENTIONAL RADIOLOGY APPOINTMENT FOR PROCEDURE: Transjugular Intrahepatic Portosystemic Shunt (TIPS) with Dr Manuel DATE: 08/29/23. ARRIVAL TIME: 1:00pm on 08/28/23. CHECK IN: Admitting Office, [address] [place] [address], at the [facility] at the [facility], [address] [place] [address]. It is important to arrive on time [...] your appointment, please call our office at [phone] opt 1 at least 24 hours in [...] park in the hospital garages in the [facility] [address] [place] [address] or [employer] [facility]. Clamp Remover parking is available for $10 (tiwari only) at the main entrance of the [facility] and [facility]. Plan on being here approximately 3-5 [...] Radiology procedure. documented in this encounter [facility] 05-23-2023 History of Presen t [...] apparently had a colonoscopy done 2021 ASSESSMENT/PLAN: Mahdavi Avalos is a 62 y.o. [facility] female with what appears to be decompensated HARRISON cirrhosis, who comes to the clinic today for a LT evaluation and for further management pts cell [phone] 1. Decompensated cirrhosis: - Etiology: NAFLD/HARRISON - [...] to clinic in 3 months Randal NEAL Welder Tech in Clinical Medicine Department of Internal medicine Pager:[phone] This nurse used print press operator [id number]. This nurse verified pts name and . [...] a wait list. documented in this encounter [facility] 05-23-2023 Instructions Randal Vital MD - [...] resistance training documented in this encounter [facility] 11-07-2022 History of Presen t illness Narrative Images from the original note were not included. Division of Gastroenterology, Hepatology and Nutrition HEP OP NOTE: HEPATOLOGY OUTPATIENT NOTE PRIMARY CARE PHYSICIAN: No primary care provider on file. REFERRING PROVIDER: Damian Estrada DO [address] [place] [phone] HEPATOLOGY/GI DIAGNOSIS: 1. Decompensated cirrhosis from HARRISON- [...] ILLNESS: Madhavi Avalos is a 62 y.o. [facility] female with what appears to be [...] ASSESSMENT/PLAN: Madhavi Avalos is a 62 y.o. [facility] female with what appears to be [...] Return to clinic in 3 Randal NEAL Welder Tech in Clinical Medicine Department of Internal medicine Pager:[phone] This APPLICATIONS SUPPORT ENGINEER verified patient's name and through account support rep #[id number]. documented in this encounter [facility] 11-07-2022 Instructions Randal Vital MD - [...] or resistance training documented in this encounter [facility] Diagnosis Decompensated hepatic cirrhosis [facility] Diagnosis Decompensated hepatic cirrhosis- Primary [facility] Diagnosis Other ascites [facility] [place] [facility] Diagnosis Other ascites- Primary Other cirrhosis of liver Other ascites Other cirrhosis of liver Other ascites Other cirrhosis of liver [facility] [place] [facility] Diagnosis Other ascites Other cirrhosis of liver Decompensated hepatic cirrhosis- Primary Other ascites Other cirrhosis of liver [facility] [place] [facility] Diagnosis Other ascites Other ascites Other cirrhosis of liver [facility] [place] [facility]* Diagnosis Other ascites Other cirrhosis of liver Decompensated hepatic cirrhosis 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 [facility] [place] [facility] Diagnosis 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- Primary Other chronic nonalcoholic liver disease documented in this encounter [facility] Reason for Referral Specialty Diagnoses / Procedures Referred By Dorian romero Referred To Contact Echocardiography Diagnoses Decompensated hepatic cirrhosis Procedures ECHOCARDIOGRAM IA ECHO HEART XTHORACIC,COMPLETE W DOPPLER Randal Vital MD [address] [facility] [address] [place] [address] [address] [place] [address] Referral ID Status Reason Start Date Expiration Date Visits Re quested Visits Authorized [id number] Closed 02/13/2023 03/09/2024 1 1 Specialty Diagnoses / Procedures Referred By Dorian romero Referred To Contact Diagnoses Decompensated hepatic cirrhosis Procedures US ABDOMEN RUQ/LIVER/GB Randal Vital MD [address] [place] [address] Referral ID Status Reason Start Date Expiration Date V isits Requested Visits Authorized [id number] New Request 05/23/2023 06/16/2024 1 1 Specialty Diagnoses / Procedures Referred By Contac t Referred To Contact Diagnoses Decompensated hepatic cirrhosis Procedures INTERVENTIONAL UPPER ENDOSCOPY INTERVENTIONAL UPPER ENDOSCOPY IA ESOPHAGOGASTRODUODENOSCOPY TRANSORAL DIAGNOSTIC Randal Vital MD [address] [place] [address] Referral ID Status Reason Start Date Expiration Date V isits Requested Visits Authorized [id number] New Request 05/23/2023 06/16/2024 1 1 Specialty Diagnoses / Procedures Referred By Contac t Referred To Contact Diagnoses Other ascites Procedures CT ABDOMEN/PELVIS WITH CONTRAST CHG CT SCAN,ABDOMENT AND PELVIS,W CONTRAST Randal Vital MD [address] [place] [address] Referral ID Status Reason Start Date Expiration Date V isits Requested Visits Authorized [id number] New Request 06/20/2023 07/14/2024 1 1 Specialty Diagnoses / Procedures Referred By Contac t Referred To Contact Diagnoses Other ascites Other cirrhosis of liver Procedures CASE REQUEST DEPARTMENT USE ONLY INTERVENTIONAL RADIOLOGY Haile Maldonado, PARLOR CHAPERONE-MINE SAFETY ENGINEER [address] [place] [address] Referral ID Status Reason Start Date Expiration Date V isits Requested Visits Authorized [id number] New Request 08/10/2023 09/03/2024 1 1 Specialty Diagnoses / Procedures Referred By Contac t Referred To Contact Diagnoses Other ascites Procedures ECHOCARDIOGRAM IA ECHO HEART XTHORACIC,COMPLETE W DOPPLER Haile Maldonado, PARLOR CHAPERONE-MINE SAFETY ENGINEER [address] [place] [address] Referral ID Status Reason Start Date Expiration Date V isits Requested Visits Authorized [id number] New Request 08/10/2023 09/03/2024 1 1 Specialty Diagnoses / Procedures Referred By Contac t Referred To Contact Echocardiography Diagnoses Other ascites Procedures ECHOCARDIOGRAM IA ECHO HEART XTHORACIC,COMPLETE W DOPPLER Haile Maldonado, PARLOR CHAPERONE-MINE SAFETY ENGINEER [address] [place] [address] Echocardiography [place] [address] [place] [address] Referral ID Status Reason Start Date Expiration Date Visits Re quested Visits Authorized [id number] Closed 08/10/2023 09/03/2024 1 1 Specialty Diagnoses / Procedures Referred By Contac t Referred To Contact Procedures DVT/VTE RISK ASSESSMENT Seth Hines MD, MPH [address] [place] [address] Referral ID Status Reason Start Date Expiration Date V isits Requested Visits Authorized [id number] New Request 08/28/2023 09/21/2024 1 1 Specialty Diagnoses / Procedures Referred By Contac t Referred To Contact Diagnoses 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 Procedures US ABDOMEN RUQ/LIVER/GB Annabel Goetz APRN-MINE SAFETY ENGINEER [address] [place] [address] Referral ID Status Reason Start Date Expiration Date V isits Requested Visits Authorized [id number] New Request 10/16/2023 11/09/2024 1 1 Advance [...] HARRISON FriendDamian, [address] [place] [address] Referral ID Status Reason Start Date Expiration Date V isits Requested Visits Authorized [id number] New Request 03/17/2022 04/11/2023 1 1 Specialty Diagnoses / Procedures Referred By Contac t Referred To Contact Echocardiography Diagnoses Decompensated hepatic cirrhosis Procedures ECHOCARDIOGRAM IA ECHO HEART XTHORACIC,COMPLETE W DOPPLER Randal Vital MD [address] [place] [address] Echocardiography [place] [address] [place] [address] Referral ID Status Reason Start Date Expiration Date Visits Re quested Visits Authorized [id number] Closed 02/13/2023 03/09/2024 1 1 Reason Comments Follow-up Specialty Diagnoses / Procedures Referred By Contac t Referred To Contact Diagnoses Other ascites Procedures CT ABDOMEN/PELVIS WITH CONTRAST CHG CT SCAN,ABDOMENT AND PELVIS,W CONTRAST Randal Vital MD [address] [place] [address] Referral ID Status Reason Start Date Expiration Date V isits Requested Visits Authorized [id number] New Request 06/20/2023 07/14/2024 1 1 Reason Comments Consult Specialty Diagnoses / Procedures Referred By Contac t Referred To Contact Interventional Radiology Diagnoses Decompensated hepatic cirrhosis Randal Vital MD [address] [facility] [address] [place] [address] Referral ID Status Reason Start Date Expiration Date V isits Requested Visits Authorized [id number] New Request 06/18/2023 07/12/2024 1 1 Reason Comments Follow-up Concerns with throat Specialty Diagnoses / Procedures Referred By Contac t Referred To Contact Echocardiography Diagnoses Other ascites Procedures ECHOCARDIOGRAM IA ECHO HEART XTHORACIC,COMPLETE W DOPPLER Haile Maldonado, PARLOR CHAPERONE-MINE SAFETY ENGINEER [address] [place] [address] Echocardiography [place] [address] [facility] [address] [place] [address] Referral ID Status Reason Start Date Expiration Date Visits Re quested Visits Authorized [id number] Closed 08/10/2023 09/03/2024 1 1 Specialty Diagnoses / Procedures Referred By Contac t Referred To Contact Diagnoses Other ascites Other cirrhosis of liver Other ascites [R18.8] Other cirrhosis of liver [K74.69] Procedures IA INSERT TRANSVEN INTRAHEP PORTOSYS SHUNT IA ABDOM PARACENTESIS DX/THER W IMAGING GUIDANCE INSERTION SHUNT TRANSVENOUS INTRAHEPATIC PORTOSYSTEMIC PERCUTANEOUS (TIPS) PARACENTESIS ABDOMINAL W/ IMAGING GUIDANCE Seth Hines MD, MPH [address] [address] [facility] [address] [place] [address] Referral ID Status Reason Start Date Expiration Date Visits Re quested Visits Authorized [id number] 1 1 Reason Comments Post-Discharge Follow Up Care Teams (unrecognized sec tion and content) Adult Education Teacher Relationship Specialty Start Date End Date Darlene Garibay MD [address] [place] [address] PCP - General Family Medicine 05/23/23 Adult Education Teacher Relationship Specialty Start Date End Date Darlene Garibay MD [address] [place] [address] PCP - General Family Medicine 05/23/23 Adult Education Teacher Relationship Specialty Start Date End Date Darlene Garibay MD [address] [place] [address] PCP - General Family Medicine 05/23/23 Adult Education Teacher Relationship Specialty Start Date End Date Darlene Garibay MD [address] [place] [address] PCP - General Family Medicine 05/23/23 Scheduled Active and Recently Administ ered Medications (unrecognized section and content) Continuous Medication Order 08/28/2023 08/29/2023 08/30/2023 albumin human 5 % injection 25 g 25 g, Intravenous, CONTINUOUS, Starting on Sun08/29/23 at 0700, Until Sun08/30/23 at 1842, Indications: Fluid Resuscitation, Intra-op/Intra-Proc 0946 (Given - [facility] PRN Medication Order 08/28/2023 08/29/2023 08/30/2023 Acetaminophen [...] 3 g, Intravenous, Administer over 30 Minutes, ACCOUNT SUPPORT REP TO PROCEDURE, 1 dose, Starting on Sun08/29/23 [...] BE BASED ON THE PRIMARY CLINICAL RECORDS. [facility] [employer] [facility]. provides no warranty or guarantee of the accuracy or completeness of information in this document.
[2023-12-17 10:07] VITALS: BP 86/41; PULSE 86; RESP 18; O2SAT 97
--- NOTE | 2023-12-17 10:10 | RAD_ITS ---
STUDY: X-RAY CHEST REASON FOR EXAM: Female, 63 years old. Post thora TECHNIQUE: AP inspiration and expiration views. COMPARISON: Comparison is made with prior study dated November 29, 2023. FINDINGS: The patient is status post right thoracentesis. No evidence of pneumothorax on the immediate post right thoracentesis. RAD/Chest Insp/Exp 2 View IMPRESSION: No evidence of pneumothorax on the immediate post right thoracentesis. Electronically Signed: Valeriano Hull MD at 10:30 EST ,
[2023-12-17 10:15] VITALS: BP 93/55; PULSE 98; RESP 18; O2SAT 97
--- NOTE | 2023-12-17 10:59 | PCM.OP.PRO ---
Procedure Report Date of Procedure: 12/17/23 Assessment & Plan Assessment/Plan (1) Pleural effusion: PLAN: PROCEDURE: Ultrasound Guided Thoracentesis ORDERING PROVIDER: Dr. Garibay INDICATION: Female, 63 years old. Right pleural effusion. PROVIDER: VANCE Painting PROCEDURE: The risks, benefits, and alternatives to the procedure were explained to the patient and daughter. The specific risks of bleeding, infection, and pneumothorax requiring chest tube insertion were discussed and accepted. Written informed consent was obtained. The patient was placed in the sitting, upright position. Ultrasonographic evaluation of the bilateral lower pleural spaces was carried out. An adequate pocket was identified in the right pleural space.The overlying skin was prepped and draped in sterile fashion. 2% lidocaine was administered subcutaneously for local anesthesia. Under ultrasound guidance, a 5-Lithuanian thoracentesis needle/catheter system was advanced into the right posterior lower pleural fluid collection. 530 ml of clear yellow colored fluid was drained. 100 mL of this fluid was collected and sent to the laboratory for analysis. The catheter was removed, and a sterile dressing was applied. The patient tolerated the procedure well. A chest x-ray was ordered. IMPRESSION: Successful ultrasound-guided thoracentesis of right pleural effusion Procedures Radiology Radiology US Procedures: 44219 Thoracentesis
== END | disposition home or self-care (01) ==
LOC: US 09:38
PROVIDERS: PCP Family Medicine; Referring Provider Family Medicine; Visit Provider Family Medicine
DX: J90 Pleural effusion, not elsewhere classified (principal)
CPT/HCPCS: 32555; 71046; 87070; 87075; 87205; 88108; 88305; 88313

== ENCOUNTER → 2023-12-20 | Outpatient (CLI) | payer SELFPAY ==
--- NOTE | 2023-12-20 10:26 | US_ITS ---
STUDY: ABDOMINAL ULTRASOUND -ascites assessment. REASON FOR VISIT: Female, 63 years old K75.81 TECHNIQUE: Ultrasound evaluation of the 4 quadrants was performed with real-time and static novak-scale imaging. TECHNICAL QUALITY: Adequate. COMPARISON: None. FINDINGS: The 4 quadrants were examined. Not enough fluid is seen for safe paracentesis. US/Abdomen Limited IMPRESSION: Not enough fluid is seen for safe paracentesis. Electronically Signed: Valeriano Hull MD at 13:27 EST ,
[2023-12-20 10:57] VITALS: BP 91/54; PULSE 75; RESP 18; O2SAT 99
== END | disposition home or self-care (01) ==
PROVIDERS: PCP Family Medicine; Referring Provider Internal Medicine Gastroenterology; Visit Provider Internal Medicine Gastroenterology
DX: K75.81 Nonalcoholic steatohepatitis (NASH) (principal)
CPT/HCPCS: 76705

== ENCOUNTER → 2023-12-27 | Outpatient (CLI) | payer SELFPAY ==
[2023-12-27 12:12] VITALS: BP 102/60; PULSE 76; RESP 16; TEMP 37; O2SAT 96
[2023-12-27] MEDS: Lidocaine 2% (20 ml mdv) 20 ML Vial INFILT (12:17)
[2023-12-27 12:27] VITALS: BP 95/56; PULSE 82; RESP 16; O2SAT 98
[2023-12-27 12:37] VITALS: BP 111/64; PULSE 90; RESP 16; O2SAT 99
--- NOTE | 2023-12-27 13:59 | PCM.OP.PRO ---
Procedure Report Date of Procedure: 12/27/23 Assessment & Plan Assessment/Plan (1) Abdominal ascites: QUALIFIERS: Ascites type: other type Qualified Code(s): R18.8 - Other ascites PLAN: PROCEDURE: Ultrasound guided paracentesis ORDERING PROVIDER: Dr. Estrada INDICATION: Female, 63 years old. Abdominal ascites. PROVIDER: VANCE Painting TECHNIQUE: The risks, benefits, and alternatives to the procedure were explained to the patient and daughter. The specific risks of bleeding, infection, and damage to bowel were detailed and accepted. Witnessed informed consent was obtained. The abdomen was ultrasonographically surveyed. An appropriate pocket of fluid was identified in the right lower quadrant. The skin was prepped with chlorhexidine and sterile field established. 2% lidocaine was used for local anesthetic. Using ultrasound guidance, the peritoneal cavity was accessed with a 5-Kiswahili paracentesis needle/catheter system. The trocar was removed. A total of 3500 ml of light yellow colored fluid was removed from the peritoneal cavity. The catheter was removed and a sterile dressing was applied. The procedure was well tolerated. IMPRESSION: Successful ultrasound-guided paracentesis with right lower quadrant access site. Procedures Radiology Radiology US Procedures: [id number] Paracentesis
== END | disposition home or self-care (01) ==
PROVIDERS: PCP Family Medicine; Referring Provider Internal Medicine Gastroenterology; Visit Provider Internal Medicine Gastroenterology
DX: K75.81 Nonalcoholic steatohepatitis (NASH) (principal)
CPT/HCPCS: 49083

== ENCOUNTER → 2024-01-03 | Outpatient (CLI) | payer SELFPAY ==
[2024-01-03 10:43] VITALS: BP 100/56; PULSE 97; RESP 16; O2SAT 97
[2024-01-03 10:45] VITALS: BP 92/57; PULSE 99; RESP 16; O2SAT 97
[2024-01-03] MEDS: Lidocaine 2% (20 ml mdv) 20 ML Vial INFILT (10:47)
[2024-01-03 11:00] VITALS: BP 116/56; PULSE 111; RESP 18; O2SAT 98
[2024-01-03 11:15] VITALS: BP 102/60; PULSE 100; RESP 18; O2SAT 98
[2024-01-03 11:27] VITALS: BP 100/58; PULSE 91; RESP 16; O2SAT 98
[2024-01-03] MEDS: Albumin Human 25% (100 mL) 25 GM/100 ML BAG IV (11:45)
[2024-01-03] MEDS: Albumin Human 25% (50 mL) 12.5 GM/50 ML IV.SOLN IV (13:10)
[2024-01-03 14:12] VITALS: BP 90/49; PULSE 88; RESP 16; TEMP 37; O2SAT 97
--- NOTE | 2024-01-03 14:48 | PRO.PCM_ITS ---
Procedure Report Date of Procedure: 01/03/24 Assessment & Plan Assessment/Plan (1) Abdominal ascites: QUALIFIERS: Ascites type: other type Qualified Code(s): R18.8 - Other ascites PLAN: PROCEDURE: Ultrasound guided paracentesis ORDERING PROVIDER: Dr. Estrada INDICATION: Female, 63 years old. Ascites. PROVIDER: VANCE Painting TECHNIQUE: The risks, benefits, and alternatives to the procedure were explained to the patient and daughter. The specific risks of bleeding, infection, and damage to bowel were detailed and accepted. Witnessed informed consent was obtained. The abdomen was ultrasonographically surveyed. An appropriate pocket of fluid was identified in the left upper quadrant. The skin was prepped with chlorhexidine and sterile field established. 2% lidocaine was used for local anesthetic. Using ultrasound guidance, the peritoneal cavity was accessed with a 5-[place] Islander paracentesis needle/catheter system. The trocar was removed. A total of 6500 ml of clear yellow colored fluid was removed from the peritoneal cavity. The catheter was removed and a sterile dressing was applied. The procedure was well tolerated. IMPRESSION: Successful ultrasound-guided paracentesis with left upper quadrant access site. Procedures Radiology Radiology US Procedures: [id number] Paracentesis
== END | disposition home or self-care (01) ==
LOC: US 10:22
PROVIDERS: PCP Family Medicine; Referring Provider Internal Medicine Gastroenterology; Visit Provider Internal Medicine Gastroenterology
DX: K75.81 Nonalcoholic steatohepatitis (NASH) (principal)
CPT/HCPCS: 96365; 96366; 49083; J7050; P9047

== ENCOUNTER → 2024-01-10 | Outpatient (CLI) | payer SELFPAY ==
--- NOTE | 2024-01-10 11:01 | US_ITS ---
PROCEDURE: Ultrasound guided paracentesis. DATE OF EXAMINATION: January 10, 2024. INDICATION: Female, 63 years old. Ascites. PHYSICIAN: Valeriano Hull M.D. TECHNIQUE: The risks, benefits, and alternatives to the procedure were explained to the patient. The specific risks of bleeding, infection, and damage to bowel were detailed and accepted. Witnessed informed consent was obtained. The abdomen was ultrasonographically surveyed. An appropriate pocket of fluid was identified at the left lower quadrant. The skin were cleaned and prepped in the usual sterile fashion. Using ultrasound guidance, the peritoneal cavity was accessed with a 5-Georgian paracentesis needle/catheter system. The trocar was removed. A total of 5800 ml of willis-colored fluid were removed from the peritoneal cavity. The catheter was removed and a sterile dressing was applied. The procedure was well tolerated. US/Paracentesis with US IMPRESSION: Ultrasound guided paracentesis. Electronically Signed: Valeriano Hull MD at 12:49 EDT ,
[2024-01-10 11:10] VITALS: BP 92/57; PULSE 92; RESP 16; TEMP 36.8; O2SAT 97
[2024-01-10] MEDS: Lidocaine 2% (20 ml mdv) 20 ML Vial INFILT (11:15)
[2024-01-10 11:25] VITALS: BP 99/58; PULSE 86; RESP 16; O2SAT 96
[2024-01-10 11:40] VITALS: BP 99/52; PULSE 82; RESP 16; O2SAT 97
[2024-01-10 11:46] VITALS: BP 89/53; PULSE 86; RESP 16; O2SAT 97
[2024-01-10] MEDS: Albumin Human 25% (100 mL) 25 GM/100 ML BAG IV (12:22)
[2024-01-10] MEDS: Albumin Human 25% (50 mL) 12.5 GM/50 ML IV.SOLN IV (13:51)
[2024-01-10 14:51] VITALS: BP 86/47; PULSE 89; RESP 16; TEMP 36.4; O2SAT 99
--- OUTSIDE RECORDS SUMMARY | 2024-01-10 19:22 | XMS RPT_ITS | CCD ---
Author Name Unknown Address [address] [place] [address] Organization [facility] Care Team Providers Care Guide Dog Trainer Name Role Phone Unavailable Primary Care Provider Unavailjairo Garibay MD, Falcon Primary Care Provider [facility] Primary Care Unavailable SETH HINES Attending Unavailable NEPTALI, CHATHUR Referring Unavailable SETH HINES Admitting Unavailable [facility] Primary Care Unavailable KEN GARCIA I Attending Unavailable NEPTALI, CHATHUR Referring Unavailable SELF, SELF Referring Unavailable HAILE MALDONADO Referring Unavailable HAILE MALDONADO Attending Unavailable [facility] Unavailable SELF, SELF Referring Unavailable [facility] Primary Care Unavailable ANNABEL GOETZ Attending Unavailable SELF, SELF Referring Unavailable [facility] Primary Care Unavailable ANNABEL GOETZ Attending Unavailable [facility] Primary Care Unavailable NEPTALI, CHATHUR Attending Unavailable NEPTALI, CHATHUR Referring Unavailable SELF, SELF Referring Unavailable NEPTALI, CHATHUR Attending Unavailable SELF, SELF Referring Unavailable [facility] Primary Care Unavailable NEPTALI, CHATHUR Attending Unavailable MANUEL, AMBER Attending Unavailable [facility] Primary Care Unavailable NEPTALI, CHATHUR Referring Unavailable [facility] Primary Care Unavailable NEPTALI, CHATHUR Attending Unavailable NEPTALI, CHATHUR Referring Unavailable SELF, SELF Referring Unavailable NEPTALI, CHATHUR Attending Unavailable NEPTALI, CHATHUR Attending Unavailable [facility] Primary Care Unavailable ANNABEL GOETZ Referring Unavailable [facility] Primary Care Unavailable ANNABEL GOETZ Referring Unavailable NEPTALI, CHATHUR Attending Unavailable SELF, SELF Referring Unavailable NEPTALI, CHATHUR Attending Unavailable MIEDEL, DARLENE Primary Care Unavailable DARLENE GAIRBAY Referring Unavailable ANNABEL GOETZ Attending Unavailable DARLENE GARIBAY Primary Care Unavailable DARLENE GARIBAY Referring Unavailable ANNABEL GOETZ Attending Unavailable Medications Current Medications Medication Drug Class(es) Dates Sig (Normalized) Sig (Original) Acetaminophen / oxyCODONE (10 sources) Opioid Agonist take 5 capsules by mouth once daily OXYCODONE-ACETAMINO PHEN PO Take 5 capsules by mouth daily. Active Completed/Discontinued Medications Medication Drug Class(es) Dates Sig (Normalized) Sig (Original) acetaminophen 325 mg oral tablet (1 source) Start: 08-28-2023 End: 08-30-2023 take 1 tablet by mouth every six hours as needed Acetaminophen (TYLENOL) tablet 650 mg Albumin Human, SENIOR [facility]ARE (2 sources) Human Serum Albumin Start: 08-29-2023 End: 08-29-2023 albumin human 25 % injection 50 g Problems Active Problems Problem Classification Problem Date Documented Da te Episodic/Chronic Hepatitis (7 sources) Cirrhosis - non-alcoholic; Translations: [Nonalcoholic steatohepatitis ([place]ARRISON)] Onset: 08-28-2023 08-28-2023 Chronic Other gastrointestinal disorders (2 sources) Celiac disease; Translations: [Celiac disease] Onset: 02-13-2023 Chronic Other liver diseases (1 source) Non-alcoholic fatty liver; Translations: [Fatty (change of) liver, not elsewhere classified] Chronic Other liver diseases (3 sources) Cirrhosis of liver; Translations: [Other cirrhosis of liver] Onset: 08-28-2023 08-10-2023 Chronic Other liver diseases (2 sources) Unspecified cirrhosis of liver; Translations: [Unspecified cirrhosis of liver] Onset: 01-02-2024 Chronic Other liver diseases (1 source) Other cirrhosis of liver; Translations: [Other cirrhosis of liver] Onset: 08-28-2023 Chronic Other liver diseases (6 sources) Decompensated cirrhosis of liver; Translations: [Hepatic failure, unspecified without coma] Episodic Other liver diseases (2 sources) Hepatic failure, unspecified without coma; Translations: [Hepatic failure, unspecified without coma] Onset: 01-02-2024 Episodic Other nutritional; endocrine; and metabolic disorders (10 sources) Obese class I; Translations: [Obesity, unspecified] Onset: 11-07-2022 11-07-2022 Chronic Past or Other Problems Problem Classification Problem Date Documented Da te Episodic/Chronic Other gastrointestinal disorders (5 sources) Ascites; Translations: [Other ascites] Onset: 08-28-2023 07-05-2023 Episodic Other gastrointestinal disorders (1 source) Other ascites; Translations: [Other ascites] Onset: 08-28-2023 Episodic Results Test Name Value Interpretation Reference Range Facil ity Vital Signs Date Time Vital Sign Value Performing Clinician Faci lity 01-02-2024 10:17-0500 Body height 154.9 cm Amandeep Vital MD Work Phone: [facility] 01-02-2024 10:17-0500 Body mass index (BMI) [Ratio] 33.37 kg/m2 Amandeep Vital MD Work Phone: [facility] 01-02-2024 10:17-0500 Body weight 80.11 kg Amandeep Vital MD Work Phone: [facility] 01-02-2024 10:17-0500 Diastolic blood pressure 52 mm[Hg] Amandeep Vital MD Work Phone: [facility] 01-02-2024 10:17-0500 Heart rate 99 /min Amandeep Vital MD Work Phone: [facility] 01-02-2024 10:17-0500 Respiratory rate 14 /min Amandeep Vital MD Work Phone: [facility] 01-02-2024 10:17-0500 SaO2% (BldA) [Mass fraction] 97 % Amandeep Vital MD Work Phone: [facility] 01-02-2024 10:17-0500 Systolic blood pressure 94 mm[Hg] Amandeep Vital MD Work Phone: [facility] 10-16-2023 10:59-0500 Body mass index (BMI) [Ratio] 31.91 kg/m2 Annabel Goetz DIRECTOR CHEMISTRY-INDUSTRIAL DESIGN ENGINEER Work Phone: [facility] 10-16-2023 10:59-0500 Body weight 76.61 kg Annabel Goetz DIRECTOR CHEMISTRY-INDUSTRIAL DESIGN ENGINEER Work Phone: [facility] 10-16-2023 10:59-0500 Diastolic blood pressure 58 mm[Hg] Annabel Goetz DIRECTOR CHEMISTRY-INDUSTRIAL DESIGN ENGINEER Work Phone: [facility] 10-16-2023 10:59-0500 Heart rate 103 /min Annabel Goetz DIRECTOR CHEMISTRY-INDUSTRIAL DESIGN ENGINEER Work Phone: [facility] 10-16-2023 10:59-0500 SaO2% (BldA) [Mass fraction] 98 % Annabel Goetz DIRECTOR CHEMISTRY-INDUSTRIAL DESIGN ENGINEER Work Phone: [facility] 10-16-2023 10:59-0500 Systolic blood pressure 98 mm[Hg] Annabel Goetz DIRECTOR CHEMISTRY-INDUSTRIAL DESIGN ENGINEER Work Phone: [facility] 08-30-2023 13:44-0400 Body temperature 97.39 [degF] Seth Hines MD, MPH Work Phone: [facility] 08-30-2023 13:44-0400 Diastolic blood pressure 52 mm[Hg] Seth Hines MD, MPH Work Phone: [facility] 08-30-2023 13:44-0400 Heart rate 65 /min Seth Hines MD, MPH Work Phone: [facility] 08-30-2023 13:44-0400 Respiratory rate 16 /min Seth Hines MD, MPH Work Phone: [facility] 08-30-2023 13:44-0400 SaO2% (BldA) [Mass fraction] 97 % Seth Hines MD, MPH Work Phone: [facility] 08-30-2023 13:44-0400 Systolic blood pressure 95 mm[Hg] Seth Hines MD, MPH Work Phone: [facility] 08-28-2023 11:49-0400 Body height 154.9 cm Seth Hines MD, MPH Work Phone: [facility] 08-28-2023 11:49-0400 Body mass index (BMI) [Ratio] 32.9 kg/m2 Seth Hines MD, MPH Work Phone: [facility] 08-28-2023 11:49-0400 Body weight 78.97 kg Seth Hines MD, MPH Work Phone: [facility] 08-27-2023 13:10-0400 Body height 160 cm Haile Maldonado DIRECTOR CHEMISTRY-INDUSTRIAL DESIGN ENGINEER Work Phone: [facility] 08-27-2023 13:10-0400 Body mass index (BMI) [Ratio] 30.47 kg/m2 Haile Maldonado DIRECTOR CHEMISTRY-INDUSTRIAL DESIGN ENGINEER Work Phone: 1(642)[phone] [place] [address] 08-27-2023 13:10-0400 Body weight 78 kg Haile Maldonado DIRECTOR CHEMISTRY-INDUSTRIAL DESIGN ENGINEER Work Phone: [facility] 08-27-2023 13:10-0400 Diastolic blood pressure 62 mm[Hg] Haile Maldonado DIRECTOR CHEMISTRY-INDUSTRIAL DESIGN ENGINEER Work Phone: 9(854)[phone] [address] 08-27-2023 13:10-0400 Heart rate 80 /min Haile Maldonado DIRECTOR CHEMISTRY-INDUSTRIAL DESIGN ENGINEER Work Phone: 1(849)[phone] [place] [address] 08-27-2023 13:10-0400 Systolic blood pressure 94 mm[Hg] Haile Maldonado DIRECTOR CHEMISTRY-INDUSTRIAL DESIGN ENGINEER Work Phone: 4(211)[phone] [address] 08-27-2023 08:36-0400 Body height 160 cm Annabel Goetz DIRECTOR CHEMISTRY-INDUSTRIAL DESIGN ENGINEER Work Phone: [facility] 08-27-2023 08:36-0400 Body mass index (BMI) [Ratio] 30.47 kg/m2 Annabel Goetz DIRECTOR CHEMISTRY-INDUSTRIAL DESIGN ENGINEER Work Phone: [facility] 08-27-2023 08:36-0400 Body weight 78.02 kg Annabel Goetz DIRECTOR CHEMISTRY-INDUSTRIAL DESIGN ENGINEER Work Phone: [facility] 08-27-2023 08:36-0400 Diastolic blood pressure 62 mm[Hg] Annabel Goetz DIRECTOR CHEMISTRY-INDUSTRIAL DESIGN ENGINEER Work Phone: [facility] 08-27-2023 08:36-0400 Heart rate 80 /min Annabel Goetz DIRECTOR CHEMISTRY-INDUSTRIAL DESIGN ENGINEER Work Phone: [facility] 08-27-2023 08:36-0400 SaO2% (BldA) [Mass fraction] 95 % Annabel Goetz DIRECTOR CHEMISTRY-INDUSTRIAL DESIGN ENGINEER Work Phone: [facility] 08-27-2023 08:36-0400 Systolic blood pressure 94 mm[Hg] Annabel Goetz DIRECTOR CHEMISTRY-INDUSTRIAL DESIGN ENGINEER Work Phone: [facility] 08-10-2023 08:43-0400 Body temperature 97.81 [degF] [facility] 08-10-2023 08:43-0400 Diastolic blood pressure 57 mm[Hg] [facility] 08-10-2023 08:43-0400 Heart rate 84 /min [facility] 08-10-2023 08:43-0400 SaO2% (BldA) [Mass fraction] 97 % [facility] 08-10-2023 08:43-0400 Systolic blood pressure 107 mm[Hg] [facility] 07-05-2023 17:18-0400 Body height 160 cm Amandeep Vital MD Work Phone: [facility] 07-05-2023 17:18-0400 Body mass index (BMI) [Ratio] 28.34 kg/m2 Amandeep Vital MD Work Phone: [facility] 07-05-2023 17:18-0400 Body weight 72.58 kg Amandeep Vital MD Work Phone: [facility] 07-05-2023 17:18-0400 Diastolic blood pressure 57 mm[Hg] Amandeep Vital MD Work Phone: [facility] 07-05-2023 17:18-0400 Heart rate 74 /min Amandeep Vital MD Work Phone: [facility] 07-05-2023 17:18-0400 Systolic blood pressure 96 mm[Hg] Amandeep Vital MD Work Phone: [facility] 05-23-2023 09:47-0400 Body height 159.8 cm Amandeep Vital MD Work Phone: [facility] 05-23-2023 09:47-0400 Body mass index (BMI) [Ratio] 31.22 kg/m2 Amandeep Vital MD Work Phone: [facility] 05-23-2023 09:47-0400 Body weight 79.7 kg Amandeep Vital MD Work Phone: [facility] 05-23-2023 09:47-0400 Diastolic blood pressure 62 mm[Hg] Amandeep Vital MD Work Phone: [facility] 05-23-2023 09:47-0400 Heart rate 78 /min Amandeep Vital MD Work Phone: [facility] 05-23-2023 09:47-0400 Respiratory rate 16 /min Amandeep Vital MD Work Phone: [facility] 05-23-2023 09:47-0400 SaO2% (BldA) [Mass fraction] 99 % Amandeep Vital MD Work Phone: [facility] 05-23-2023 09:47-0400 Systolic blood pressure 104 mm[Hg] Amandeep Vital MD Work Phone: 6(460)[phone] [address] 02-26-2023 13:27-0400 Body height 160 cm Amandeep Vital MD Work Phone: 5(858)580-061141 [place] [address] 02-26-2023 13:27-0400 Body mass index (BMI) [Ratio] 33.16 kg/m2 Amandeep Vital MD Work Phone: 5(656)225-497741 [place] [address] 02-26-2023 13:27-0400 Body weight 84.9 kg Amandeep Vital MD Work Phone: 4(770)945-279041 [place] [address] 02-26-2023 13:27-0400 Diastolic blood pressure 78 mm[Hg] Amandeep Vital MD Work Phone: 8(927)954-578141 [place] [address] 02-26-2023 13:27-0400 Systolic blood pressure 112 mm[Hg] Amandeep Vital MD Work Phone: 7(213)544-368941 [place] [address] 11-07-2022 16:13-0500 Body height 157.5 cm Amandeep Vital MD Work Phone: 4(622)[phone] [place] [address] 11-07-2022 16:13-0500 Body mass index (BMI) [Ratio] 34.2 kg/m2 Amandeep Vital MD Work Phone: 4(427)[phone] [address] 11-07-2022 16:13-0500 Body weight 84.82 kg Amandeep Vital MD Work Phone: 3(250)696-069541 [place] [address] 11-07-2022 16:13-0500 Diastolic blood pressure 70 mm[Hg] Amandeep Vital MD Work Phone: [facility] 11-07-2022 16:13-0500 Heart rate 88 /min Amandeep Vital MD Work Phone: [facility] 11-07-2022 16:13-0500 Respiratory rate 18 /min Amandeep Vital MD Work Phone: [facility] 11-07-2022 16:13-0500 SaO2% (BldA) [Mass fraction] 98 % Amandeep Vital MD Work Phone: [facility] 11-07-2022 16:13-0500 Systolic blood pressure 102 mm[Hg] Amandeep Vital MD Work Phone: [facility] Encounters Encounter Date Encounter Type Care Provider Facility Start: 01-02-2024 ambulatory AMANDEEP VITAL Facilit y:[facility] Start: 01-02-2024 ambulatory DARLENE GARIBAY Facility: [facility] Start: 01-02-2024 End: 01-02-2024 Office outpatient visit 40 minutes Amandeep Vital MD Work Phone: [facility] Procedures Date Procedure Procedure Detail Performing Clinician Start: 08-30-2023 Assay of magnesium Will kenya Contreras MD Work Phone: Start: 08-30-2023 Hepatic function panel Tk Contreras MD Work Phone: Start: 08-29-2023 GENERAL PROCEDURE Edilia Trent DO Work Phone: Start: 08-29-2023 End: 08-29-2023 Creatinine blood Marilia NEAL Work Phone: Start: 08-29-2023 End: 08-29-2023 TRANSFUSE OR PLASMA Allan Turpin DIRECTOR CHEMISTRY-C RNA Start: 08-29-2023 Bilirubin direct Wally oCntreras MD Work Phone: Start: 08-28-2023 ABORH TYPE RECONFIRMATION Daniel May MD Work Phone: Start: 08-28-2023 End: 08-28-2023 Antibody screen Seth Hines MD, MPH Work Phone: Plan of Treatment Date Care Activity Detail Author Start: 01-01-2025 Potassium [Moles/volume] in Serum or Plasma POTASSIUM [facility] Start: 10-16-2024 Potassium [Moles/volume] in Serum or Plasma POTASSIUM [facility] Start: 08-27-2024 Potassium [Moles/volume] in Serum or Plasma POTASSIUM [facility] Start: 08-10-2024 Potassium [Moles/volume] in Serum or Plasma POTASSIUM [facility] Start: 08-05-2024 End: 08-05-2024 Patient encounter procedure 08/05/2024 11:30 AM EDT Office Visit [facility] [address] [place], [place] [id number] Amandeep Vital MD [address] [place], [place] [id number] [facility] Start: 05-23-2024 Potassium [Moles/volume] in Serum or Plasma POTASSIUM [facility] Start: 04-14-2024 End: 04-14-2024 Patient encounter procedure 04/14/2024 9:00 AM EDT Office Visit [facility] [address] [place], [place] [id number] Annabel Goetz, JOSELYN-INDUSTRIAL DESIGN ENGINEER [address] [place] [address] [facility] Start: 02-27-2024 Potassium [Moles/volume] in Serum or Plasma POTASSIUM [facility] Start: 02-04-2024 End: 02-04-2024 Patient encounter procedure 02/04/2024 4:30 PM EDT Appointment [facility] [address] [facility] [address] [place] [id number] Matteo Martinez MD [address] [place] [address] [facility] Start: 01-02-2024 End: 01-01-2025 US Abdomen RUQ US ABDOMEN RUQ/LIVER/GB Imaging Routine Decompensated hepatic cirrhosis Expected: 01/02/2024 (Approximate), Expires: 01/01/2025 [facility] Immunizations Immunization Date Immunization Notes Care Provider Fa cility 05-23-2023 Pneumococcal Conjuga te 20-Valent Vaccine Amandeep Vital MD Work Phone: [facility] Social History Date Type Detail Facility Start: 11-07-2022 Tobacco smoking stat us NHIS Never smoked tobacco [facility] Start: 11-07-2022 Tobacco use and exposure Smokeless tobacco non-user [facility] Start: 11-07-2022 End: 01-02-2024 Alcohol intake Lifetime non-drinker (finding) [facility] Start: 1960 Sex Assigned At Not on file [facility] Start: 10-28-2022 End: 11-07-2022 Exposure to SARS-CoV-2 (event) Unable to assess [facility] Start: 05-23-2023 End: 01-02-2024 History of Social function [facility] Start: 05-23-2023 End: 01-02-2024 Tobacco use panel [facility] Clinical Notes 11-07-2022 to 01-02-2024 Amandeep Vital MD - 01/02/2024 10:30 AM Nikki Long LPN - 01/02/2024 10:30 AM ESTPatient VANCE Bernard - 10/16/2023 11:30 AM Angelika Wright - 08/30/2023 4:42 PM EDT Note Date & Type Note Facility 01-02-2024 History of Presen t illness Narrative Images from the original note were not included. Division of Gastroenterology, Hepatology and Nutrition HEP OP NOTE: HEPATOLOGY OUTPATIENT NOTE PRIMARY CARE PHYSICIAN: Darlene Garibay HEPATOLOGY/GI DIAGNOSIS: 1. Decompensated cirrhosis from [facility]-MELD 3.0 of 15 -09/2023 2. Reccurent Ascites with weekly paracentesis despite diuretics. HH and is s/p Thoracentesis X1 on 11/2023 3. EV s/p banding for SP with h/o hematemesis X1. Last one done 08/2023 with small EV 4. H/o OHE last year X1 on lactulose 5. Gluten sensitivity likely OTHER MEDICAL DIAGNOSIS: 1. S/p CCY 2. TB on rifampin for 2 months 3. Obesity REASON FOR VISIT: Liver cirrhosis secondary to [facility] follow up HISTORY OF PRESENT ILLNESS: Madhavi Avalos is a 63 y.o. [place] female with decompensated [facility] cirrhosis with refractory ascites, HH, EV bleeding, OHE, obesity, DM borderline who comes to the clinic today for a follow up and for further management.LILI with me 04/2023.Saw DANIEL Goetz 09/2023 I have reviewed the medical, surgical, and social history and have updated medication and allergy information in the computerized patient record. She was diagnosed with liver cirrhosis in 2020 back when she presented to [facility] with hematemesis and was noted to have volume overload and ascites. We had scheduled her for a TIPS procedure but her anatomy was not amenable to that procedure. (length of the right hepatic vein and the angle between the right atrium, IVC and right hepatic vein, it was not possible to advance the sheath into the right hepatic vein ) She continues to have difficult to controls ascites. Still on weekly paracentesis but now down to 3 L. Her lasix was discontinue during the hospital visit for the TIPS in August 2023 and she was started on torsemide 20 mg BID and was continued on aldactone 300 mg daily . DANIEL Goetz increased this to 40/20 on her LILI 09/2023 She does ttry to avoid salt in her diet. Unfortunately she now has HH and had a small volume thoracentesis recently 11/2023 She was noted to have OHE on her first admission and was placed on lactulose . No episodes since. She continues to take 1 tbsp lactulose 3 x day for 2/3 BMs a day She had her EV banding last in oct 2022 She has not been started on a BB due to hypotension. Last EGD with small EV She has been consuming a high protein diet.Still has lost weight . Started late night protein snack/chicken etc in the past but has not been consistent. Appetite is poor She does not do much physically due to the weather now. Has had 2 falls at home due to presyncope/syncope Today in clinic the patient denies fevers, [...] HOME MEDICATIONS: Current Outpatient Medications Medication Instructions Lactulose 10 GM/15ML Solution oral solution 30 mL, Oral, 2 TIMES DAILY Ondansetron (ZOFRAN) 4 mg, Oral, EVERY 12 HOURS OXYCODONE-ACETAMINOPHEN PO 5 capsules, Oral, DAILY PROMETHAZINE-CODEINE PO Oral, 5 to 10 ml q6hr Spironolactone (ALDACTONE) 300 mg, Oral, DAILY Torsemide 20 MG tablet Take 40 mg in the AM and 20 mg in the PM SOCIAL HISTORY: Social Situation: lives with daughterLaurence, [...] no history of IBD Physical Examination: Measurements: Smoking Status Never General: The patient is [...] CBC Lab Results Component Value Date WBC 4.18 10/16/2023 HGB 11.1 (L) 10/16/2023 HCT 34.5 (L) 10/16/2023 PLATELET 118 (L) 10/16/2023 MCV 94.3 10/16/2023 EDIF Lab Results Component Value Date RBCDISTRIBU 14.7 10/16/2023 GRNLOCYT 56.2 10/16/2023 LYMPHOCYT 25.8 10/16/2023 MONOCYTELEC 14.4 10/16/2023 EOSINOPHILS 2.4 10/16/2023 BASOPHILS 0.7 10/16/2023 LYMPHOCYTABS 1.08 (L) 10/16/2023 EOSINOPHLABS 0.10 10/16/2023 PLATELET 118 (L) 10/16/2023 MPV 9.8 10/16/2023 MELD 3.0: 15 at 10/16/2023 12:02 PM MELD-Na: 14 at 10/16/2023 12:02 PM Calculated from: Serum Creatinine: 0.65 mg/dL (Using min of 1 mg/dL) at 10/16/2023 12:02 PM Serum Sodium: 138 mmol/L (Using max of 137 mmol/L) at 10/16/2023 12:02 PM Total Bilirubin: 2.1 mg/dL at 10/16/2023 12:02 PM Serum Albumin: 3.0 g/dL at 10/16/2023 12:02 PM INR(ratio): 1.5 at 10/16/2023 12:02 PM Age at listing (hypothetical): 63 years Sex: Female at 10/16/2023 12:02 PM Outside hospital labs from February 2022 Hemoglobin 9.5, WBC 4, platelets 130 BUN 14, creatinine 0.5 to Albumin 2, globulin 4.6, AST 31, ALT 16, alkaline phosphatase 104, total bilirubin 1.2 Sodium 141, potassium 4 TB QuantiFERON gold positive IMAGING: CT 06/2023: IMPRESSION: 1. Cirrhosis with stigmata of portal hypertension, including splenomegaly, large ascites and portosystemic collaterals. 2. Moderate umbilical hernia containing fat and loculated ascites. 3. Partial visualization of severe bronchiectatic changes in the right lower lobe with bronchial wall thickening and volume loss. ENDOSCOPY REPORTS/PATHOLOGY REPORTS: EGD 08/2023: Findings: Small (< 5 mm) varices were found in the lower third of the esophagus. They were small in size. A small post variceal banding scar was found in the lower third of the esophagus. The scar tissue was healthy in appearance. Portal hypertensive gastropathy was found in the stomach. A large amount of food (residue) was found in the gastric fundus. The examined duodenum was normal. Impression: - Small (< 5 mm) esophageal varices. - Scar in the lower third of the esophagus. - Portal hypertensive gastropathy. - A large amount of food (residue) in the stomach. The food was suctioned as much as possible, however the fundus was not evaluated due to the food presence. - Normal examined duodenum. - No specimens collected. ASSESSMENT/PLAN: Madhavi Avalos is a 63 [facility] with decompensated [place] cirrhosis with ascites, EV bleeding, OHE, obesity, DM borderlinewho comes to the clinic today for a follow up and for further management.LILI with me 04/2023.Saw DANIEL Goetz 09/2023 pts cell [phone] 1. Decompensated cirrhosis: - Etiology: MASH - Diagnosis basis: decompensation - MELD Na: 15 on 09/2023 -repeat labs today - Transplant candidacy: will refer for OLT once she Has GC in hand. Till then there is no option for insurance. She is more sick than her MELD 2. Ascites: - Has significant ascites And is getting weekly paracentesis - Currently on torsemide 20 /40 mg and aldactone 300 mg daily.Will increase if possible based on labs - Will start midodrine 10 mg tid.used to be on it and for some reason it has fallen off - Failed TIPS. I asked her to get a second opinion at the [facility] - Recommend lowsalt intake of <2 gm/day as per her GI. - Recommend that patient monitor daily weights at home. 3.OHE: - Prior h/o OHE and none clinically today. - Continue lactulose for 2-3 Bowel movements a day. - Avoid narcotics and sedatives as outpatient 4.Variceal Screen: - Last EGD done on 08/2023 with small EV. Repeat in 3 months form January 2024.has been banded in the past for PP - No active bleeding currently. 5. HCC screening: - Last liver CT 06/2023 on with no mass. - Continue OP liver US every 6 months. Repeat due in 12/2023.Ordered she did not get it done locally like last time 6. Sarcopenia: - Counseled on [...] this on subsequent visit - PPV 20: Given 05/23/23 - Hep A/B: immune to hav. - Influenza: done - COVID:X3 moderna - Colonoscopy: defer to pcp Return to clinic in 3 months with PRODUCTION LEADER and me in 6 months Amandeep NEAL Plant Mechanic in Clinical Medicine Department of Internal medicine Pager:[phone] MELD 3.0: 18 at 01/02/2024 11:10 AM MELD-Na: 16 at 01/02/2024 11:10 AM Calculated from: Serum Creatinine: 0.69 mg/dL (Using min of 1 mg/dL) at 01/02/2024 11:10 AM Serum Sodium: 136 mmol/L at 01/02/2024 11:10 AM Total Bilirubin: 2.3 mg/dL at 01/02/2024 11:10 AM Serum Albumin: 2.5 g/dL at 01/02/2024 11:10 AM INR(ratio): 1.6 at 01/02/2024 11:10 AM Age at listing (hypothetical): 63 years Sex: Female at 01/02/2024 11:10 AM Patient verified name and date of Using petal shaper hand ID: [id number] documented in this encounter [facility] 01-02-2024 Instructions Amandeep Vital MD - 01/02/2024 10:30 AM EST - Ask Dr Estrada for [facility] referral documented in this encounter [facility] 10-16-2023 History of Presen t illness Narrative CLINICAL CARE TEAM: -Referring Provider for today's consult: Darlene Garibay MD -Primary Care Provider: Darlene Garibay HISTORY OF PRESENT ILLNESS: Madhavi Avalos is a 63 y.o. female who presents to the [facility] today for follow-up. I have reviewed her medical, surgical, and social history and have updated medication and allergy information in the computerized patient record. Madhavi Avalos has a history of decompensated [facility] cirrhosis c/b refractory ascites despite [...] aldactone 300 mg daily. LILI 08/27/2023 Since [facility], the patient reports ongoing issues with ascites. [...] Laterality: N/A; Surgeon: Amber Manuel MD; Location: [facility] INTERVENTIONAL RADIOLOGY (VIR) PARACENTESIS ABDOMINAL W/ IMAGING GUIDANCE N/A 08/29/2023 Laterality: N/A; Surgeon: Amber Manuel MD; Location: [facility] INTERVENTIONAL RADIOLOGY (VIR) ESOPHAGOSCOPY W/ LIGATION BAND [...] diuretic refractory ascites requiring weekly paracentesis. Plan [facility] Cirrhosis: MELD 3.0 16 from [...] participate in the care of Madhavi Avalos. Annabel Goetz APRN-INDUSTRIAL DESIGN ENGINEER Hepatology Nurse Practitioner Division of Gastroenterology, Hepatology, & Nutrition [facility] This nurse used petal shaper hand [id number]. This nurse verified pts name and . documented in this encounter [facility] 08-30-2023 History of Presen t illness Narrative Images from the original note were not included. [facility] Note: Bedside Delivery Documentation The following prescription(s) were delivered to the patient's bedside. Michelet [facility] ([place]) [phone] [facility] [phone] [facility] Bedside Delivery [phone] [facility] [phone] [facility] Bedside Delivery [phone] [facility] [phone] [facility] Bedside Delivery [phone] [place] [phone] [facility] [phone] Images from the original note were not included. [facility] Note: Non-Verbal Med Rec [facility] received the following discharge prescription(s): Total cost is $0.00. I have reviewed the Discharge Rx Reconciliation Report. The discharge prescription(s) will be delivered to the patient on 08/30/2023. Britt Garcia [facility] ([place]) [phone] [facility] [phone] [facility] [phone] [facility] [phone] [facility] Bedside Delivery [phone] [facility] [phone] [facility] Bedside Delivery [phone] [place] [phone] [facility] [phone] Final Discharge Planning and Transportation Final Discharge [...] contacted related to barriers Nadira Mauricio RN, BLENDER OPERATOR-S, ACM R 9 E Clinical Demand Inspector Telephone # available in Treatment team. Also available via Secure Chat. Acute Physical Therapy Evaluation Prior to Admission AMPA score(s): PRIOR LEVEL AM-PAC Mobility Raw Score: [...] agreeable to PT treatment with RN approval. Bulgarian speaking- daughter present and assists with translation [...] intact Mobility Assessment: Supine to Sit Mobility [place] Level: Supine->Sit: modified independence Bed Features/Set-up: Supine->Sit: Head of bed elevated Skilled Rationale: Verbal cues, Initiation and execution of task Sit to Supine Mobility [place] Level: Sit->Supine: modified mobile Bed Features/Set-up: Sit->Supine: Head of bed elevated, [...] device Transfer Assessment: Sit to Stand Transfer [place] Level: Sit->Stand: stand-by assist Assistive Device: Sit->Stand: gait belt Skilled Rationale: Verbal cues, Initiation and execution of task Skilled Intervention/Details: Sit->Stand: X1 EOB Stand to Sit Transfer [place] Level: Stand->Sit: stand-by assist Assistive Device: Stand->Sit: gait belt Skilled Rationale: Sequencing, Hand placement, Verbal cues, Controlled descent for sitting Gait/Functional Mobility: Gait Assessment [place] Level: Gait: stand-by assist Assistive Device: Gait: [...] to optimize gait mechanics Stairs: Stairs Assessment [place] Level: Stair Negotiation: not tested Outcome Score(s): CURRENT [facility] Basic Mobility Inpatient Short Form Turning over in bed: 4 - No Assistance Sitting/standing from chair: 3 - A Little Assistance Moving from lying on back to sittin - No Assistance Moving to and from bed to chair: 3 - A Little Assistance Walk in hospital room: 3 - A Little Assistance Climbing 3-5 steps with a railin - A Little Assistance CURRENT [facility] Mobility Raw Score: [address] [facility] Mobility Functional Limitation/Modifier: 35.83% Currently Impaired in [...] Edema: Mobility Assessment: Supine to Sit Mobility [place] Level: Supine->Sit: supervision Bed Features/Set-up: Supine->Sit: Head of bed elevated Sit to Supine Mobility [place] Level: Sit->Supine: supervision Bed Features/Set-up: Sit->Supine: Head of bed elevated Transfer Assessment: Sit to Stand Transfer [place] Level: Sit->Stand: stand-by assist Assistive Device: Sit->Stand: 2 wheeled walker Skilled Rationale: Cues for increased safety, Full extension to upright positioning/posture Stand to Sit Transfer [place] Level: Stand->Sit: stand-by assist Assistive Device: Stand->Sit: 2 wheeled walker Functional Mobility: Functional Mobility [place] Level: Functional Mobility/Gait: stand-by assist Assistive Device: Functional Mobility/Gait: 2 wheeled walker Functional Mobility Distance: Distance needed for common household mobility Functional Mobility Deficits: Activity tolerance, Balance, Generalized weakness, Slowed gait speed Functional Mobility Skilled Rationale: Cues for increased safety, Walker management/safety Skilled Intervention/Details - Functional Mobility/Gait: Min cueing for safety, navigation around environmental hazards Outcome Score(s): CURRENT [facility] Daily Activity Inpatient Short Form Putting on/Taking Off Lower Body Clothin - A Little Assistance Bathin - A Little Assistance Toiletin - A Little Assistance Putting on/Taking Off Upper Body Clothin - A Little Assistance Groomin - A Little Assistance Eatin - No Assistance CURRENT [facility] Activity Raw Score: 19 CURRENT [facility] Activity Functional Limitation/Modifier: 42.80% Currently Impaired in Daily Activity - CK Interventions: Assessment & Plan: Patient was admitted for [facility] cirrhosis and seen for therapy evaluation related [...] (problem-focused assessments w/limited treatment options) Time In: 0822 Time Out: 0840 Total Visit Time: 18 minutes Total Treatment [...] Patient is unavailable due to test/procedure (TIPS) iNrmala Mazariegos, PT Time In: 08 Time Out: 0804 Total Visit Time: 0 minutes Total Treatment Time (skilled, billable minutes): 0 minutes Internal Medicine Daily Progress Note Patient: Madhavi Avalos, 1960, [id number] Physician: Tk Contreras MD, Hepatology Service Assessment/Plan: Madhavi Avalos is a 63 y.o. female with a history of decompensated MASH cirrhosis c/b refractory ascites despite diuretics and weekly paracentesis, EV s/p EBL. Admitted for a planned TIPS on 08/29/2023. MASH Cirrhosis S/p attempted TIPS procedure MELD 3.0: [...] to discuss her case with the attending frame table operator, what the next steps would be, and to answer any questions they may have. The patient denies any chest pain, shortness for breath, nausea, vomiting, diarrhea, fever, chills, or abdominal pain. Objective: Vitals: 08/29/231849 BP: 89/52 Pulse: 84 Resp: 16 Temp: 97.3 F (36.3 C) SpO2: 95% O2 Device: room air (08/29/231849) Flow (L/min): 0 (08/29/23 1644) Gen: NAD, tired appearing after her procedure HENT: NCAT, EOMI, MMM, no scleral icterus Cardio: RRR, normal S1/S2, no murmur Resp: CTA b/l, no increased WOB GI: soft, NT, ND, normal BS MSK: no joint swelling or erythema Ext: warm and well-perfused, 1+ lower extremity edema Neuro: alert and oriented, moving all four extremities Data Review: WBC/Hgb/Hct/Plts: 3.39/10.4/30.1/100 (08/29 308-08/29 114) Na/K+/Phos/Mg/Ca: 142/4.0/--/1.8/7.9 (08/29 308-08/29 1215) Bun/Creat/Cl/CO2/Glucose: 16/0.48/110/24/73 [...] Ms. Avalos has a history of decompensated [facility] cirrhosis with refractory ascites. Admitted for planned for planned TIPS today. MELD 3.0 17. Focused Assessment for Discharge Planning Patient is here for planned TIPS procedure. Qualified petal shaper hand was present as primary petal shaper hand to interpret during the following: admission. The primary petal shaper hand resource was qualified telephonic petal shaper hand: ID # [id number] Initial Discharge Planning Anticipated discharge disposition: Home Transportation Available for Discharge: Family or Friend, Private Vehicle Anticipated DME: walker Anticipated Services at Discharge: Outpatient follow up, Outpatient clinical services (ie: lab draws, transfusions, injectables) Patient Assessment Completed: Focused Advanced Care Planning Assessment Advanced Care Planning Has the patient completed Advance Directives?: Not Completed Referral to Social Work for Advance Care Planning? : Patient Declines HCPOA Agent(s): none Legal Next of Kin: Brent Stone [phone] 2. daughter Fara Neville [phone] Financial Resources Insurance: No Prescription Coverage: No [...] planning and care coordination. Nadira Mauricio RN, RAINA-S, ACManisha R 9 E Clinical Demand Inspector Telephone # available in Treatment team. Also available via Secure Chat. documented in this encounter [facility] 08-30-2023 Nurse Note Handout in Bulgarian on cirrhosis/low salt diet given to patient and family prior to discharge today. Pt scheduled for hospital follow up with Annabel Goetz NP on 10/16/23. [facility] 08-30-2023 Miscellaneous Notes Handout in Bulgarian on cirrhosis/low salt diet given to patient [...] to home. Madhavi Avalos was admitted to [facility] from home. The patient reported all [...] the car documented in this encounter [facility] 08-30-2023 Hospital Discharg e sheridan Tk Contreras MD - 08/30/2023 2:18 PM [...] note that you should obtain refills from [employer] using [employer] coupons to get these medications at a [...] Care Everywhere.Torsemide Oral Tablet (TORSEMIDE - ORAL) (Bulgarian)documented in this encounter [facility] 08-30-2023 Hospital course Narrative Discharge Summary Name: [...] during her recent hospital stay at [facility]. As you may know, Madhavi Avalos is [...] providers found Division of Hospital Medicine p: [phone] f: [phone] CONSULTS DURING ADMISSION: IP CONSULT TO PHYSICAL THERAPY IP CONSULT TO OCCUPATIONAL THERAPY IP CONSULT TO PHARMACY MEDICATION ASSISTANCE IP CONSULT TO PHARMACY BEDSIDE DISCHARGE MED DELIVERY IMAGING / PROCEDURES / RESULTS: PERCUTANEOUS TRANSHEPATIC PORTAL VEIN-IP ONLY ABDOMINAL PARACENTESIS Should you require further information or copies of results or reports please contact Medical Information Management @ [phone] LABS AT TIME OF DISCHARGE: Lab Results [...] the patient was directed to go to [facility] for discounted medications PATIENT'S MEDICAL HOME AT DISCHARGE: Darlene [place] [address] [facility] [place] / [place] [address] MEDICATIONS: Medication List for when you go [...] Dept Phone 09/11/2023 1:00 PM Ken Garcia [facility] Peri Arrive at: Arrive to Outpatient Surgery Center Registration [phone] 10/16/2023 11:30 AM Annabel Goetz [facility] [place] Arrive at: Arrive to 1st Floor Registration [phone] 01/02/2024 10:30 AM Amandeep Vital General [facility] Gastrointestinal Surgery Outpatient [facility] [place] Arrive at: Arrive to 1st Floor Registration [phone] Associated attestation - Seth Hines MD, MPH [...] home and will follow-up with her primary frame table operator regarding next steps. Diuretics adjusted as follows: Lasix discontinued and started on torsemide 20mg bid. Home Aldactone continued. Midodrine increased to 15mg tid from 10mg tid to assist with hypotension. MELD 3.0 16. documented in this encounter [facility] 08-30-2023 Plan of care note Problem: [...] for functional mobility. Outcome: Ongoing [facility] 08-30-2023 Plan of care note Problem: [...] ability to safely complete toileting. Outcome: Ongoing [facility] 08-30-2023 Plan of care note Problem: [...] utilized verbalization of feelings encouraged [facility] 08-29-2023 Plan of care note Problem: [...] CPG). Outcome: Progressing Toward Goal [facility] 08-29-2023 Note Amber Manuel MD 3:32 [...] PGY-6 Toma Trent DO 08/29/2023 1:28 PM MANUFACTURING AREA MANAGER(S): Amber Manuel MD (Attending); Toma Trent DO (Resident) CONSENT: Informed consent was obtained prior to the procedure after discussion of the risks, benefits, and alternatives of the procedure, and expected procedure outcomes were discussed with the patient and/or sales representative printing. The consent document was placed in chart. DID THIS PROCEDURE REQUIRE A UNIVERSAL PROTOCOL?: Yes. [place] Protocol is required. Preprocedure verification is complete. [...] participate in this patient's care. [facility] 08-29-2023 Nurse Note Interventional Radiology TIPSS [...] yellow ascites removed during paracentesis. [facility] 08-28-2023 Plan of care note Problem: Patient Care Overview Goal: Plan of Care Review Outcome: Ongoing Goal: Individualization & Mutuality Outcome: Ongoing Goal: Discharge Needs Assessment Outcome: Ongoing Goal: Interdisciplinary Rounds/Family Conf Outcome: Ongoing [facility] 08-28-2023 Progress note Formatting of t his note might be different from the original. I certify that this patient requires inpatient services at this time. I anticipate the expected length of stay will include at least two midnights. Inpatient services are due to the following medical concerns TIPS. Plans for post hospitalization care will be discharge to home. [facility] 08-28-2023 History and physical note Internal Medicine Admission History & Physical Patient: Madhavi Avalos, 1960, [id number] Physician: Tk Contreras MD, PGY1, Hepatology Service Date of face to face patient encounter: 08/28/2023. Chief Complaint: Planned Admission for TIPS History Of Present Illness: Madhavi Avalos is a 63 y.o. female with a history of decompensated [facility] cirrhosis c/b refractory ascites despite [...] chills, cough, melena, hematochezia, or hematemesis. Primary Cut Off Saw Operator Metal Dr. Vital Etiology of Liver Disease [facility] cirrhosis MELD MELD 3.0: 14 [...] erythema Skin: No jaundice or rash Neuro: social group worker 3-7, 9-11 intact and equal. Strength grossly [...] Admitted for a planned TIPS on 08/29/2023. [facility] Cirrhosis MELD 3.0: 14 at 08/28/2023 12:25 [...] is FULL Staffed with Dr. Hines Signed, kT Contreras MD Internal Medicine PGY1 Associated attestation [...] Ms. Avalos has a history of decompensated [facility] cirrhosis with refractory ascites admitted for planned TIPS. CT abdomen and ECHO findings reviewed; of note RSVP was unable to be estimated on ECHO. TIPS planned for 08/29/23. MELD 3.0 14. [facility] 08-28-2023 History and physical note Internal Medicine Admission History & Physical Patient: Madhavi Avalos, 1960, [id number] Physician: Tk Contreras MD, PGY1, Hepatology Service Date of face to face patient encounter: 08/28/2023. Chief Complaint: Planned Admission for TIPS History Of Present Illness: Madhavi Avalos is a 63 y.o. female with a history of decompensated [facility] cirrhosis c/b refractory ascites despite diuretics and [...] chills, cough, melena, hematochezia, or hematemesis. Primary Cut Off Saw Operator Metal Dr. Vital Etiology of Liver Disease [facility] cirrhosis MELD MELD 3.0: 14 [...] erythema Skin: No jaundice or rash Neuro: social group worker 3-7, 9-11 intact and equal. Strength grossly equal in muscle groups of the bilateral UEs and LEs. Psych: Appropriate affect and cognition Data Review: WBC/Hgb/Hct/Plts: 4.67/12.7/39.1/118 (08/28 1225) Na/K+/Phos/Mg/Ca: 138/5.0/2.9/1.9/8.1 (08/28 1225) Bun/Creat/Cl/CO2/Glucose: 18/0.63/106/25/91 (08/28 1225) Ptt/Pt/Inr: 40.6/17.3/1.4 (08/28 1225) Impression/Plan: Madhavi Avalos is a 63 y.o. female with a history of decompensated [facility] cirrhosis c/b refractory ascites despite diuretics and weekly paracentesis, EV s/p EBL. Admitted for a planned TIPS on 08/29/2023. [facility] Cirrhosis MELD 3.0: 14 at 08/28/2023 12:25 [...] 14. documented in this encounter [facility] 08-28-2023 Nurse Note Madhavi Avalos was admitted to [facility] from home. The patient reported all [...] notified of the patient's arrival. [facility] 08-28-2023 Nurse Note Patient arrived from home with family member. Dr. Contreras notified of arrival. [facility] 08-28-2023 Progress note Formatting of t his note might be different from the original. 08/28/2023 Notified room Ready @ 11:16 AM spoke to pt, will arrive to admitting @ now, pt is parking the car [facility] 08-27-2023 History of Presen t illness [...] achieved. documented in this encounter [facility] 08-27-2023 History of Presen t illness Narrative CLINICAL CARE TEAM: -Referring Provider for today's consult: Self, Self -Primary Care Provider: Darlene Garibay HISTORY OF PRESENT ILLNESS: Madhavi Avalos is a 63 y.o. female who presents to the [facility] today for follow-up. I have reviewed her medical, surgical, and social history and have updated medication and allergy information in the computerized patient record. Madhavi Avalos has a history of decompensated [facility] cirrhosis c/b refractory ascites despite diuretics and weekly paracentesis, EV s/p EBL. History also notable for obesity and CCY She was diagnosed with cirrhosis 2020 when she presented to [facility]SH with hematemesis and [...] y.o. female with a history of decompensated [facility] cirrhosis c/b refractory ascites despite diuretics and weekly paracentesis, EV s/p EBL. She will be admitted tomorrow for planned TIPS on 08/29 Plan [facility] Cirrhosis: MELD 3.0 14 from [...] Division of Gastroenterology, Hepatology, & Nutrition [facility] This nurse verified pts name and . documented in this encounter [facility] 08-10-2023 History of Presen t illness Narrative Met with patient(only speaks Bulgarian) and daughter (declined petal shaper hand for me but petal shaper hand phone available and used for ADRIANO and Doctor) in IR clinic today to discuss TIPS, reviewed patient medication list, allergies, and day of instructions for procedure. Pt gets weekly paracentesis at [place] for last year. She was drained yesterday for 6.4 liters. Handouts given Patient verbalized understanding of all covered information. Patient will be scheduled for procedure with IR medical coding instructor. Pt sent to get labs and will need ECHO before procedure. documented in this encounter [facility] 08-10-2023 Instructions Haile Kennedyy - 08/10/2023 8:40 AM EDT INFORMATION REGARDING YOUR INTERVENTIONAL RADIOLOGY APPOINTMENT FOR PROCEDURE: Transjugular Intrahepatic Portosystemic Shunt (TIPS) with Dr Manuel DATE: 08/29/23. ARRIVAL TIME: 1:00pm on 08/28/23. CHECK IN: Admitting Office, [address] [place] [address], at the [facility] at the [facility], [address] [place] [address]. It is important to arrive on time [...] your appointment, please call our office at [phone] opt 1 at least 24 hours in [...] park in the hospital garages in the [facility] [address] [place] or Safe [employer] Gar[facility]. General Handling Supervisor parking is available for $10 (tiwari only) at the main entrance of the [facility] and [facility]. Plan on being here approximately 3-5 [...] Radiology procedure. documented in this encounter [facility] 05-23-2023 History of Presen t illness Narrative Images from the original note were not included. Division of Gastroenterology, Hepatology and Nutrition HEP OP NOTE: HEPATOLOGY OUTPATIENT NOTE PRIMARY CARE PHYSICIAN: Darlene Garibay HEPATOLOGY/GI DIAGNOSIS: 1. Decompensated cirrhosis from HARRISON-MELD NA -02/2023 2. Reccurent Ascites with weekly paracentesis despite diuretics 3. EV s/p banding for SP with h/o hematemesis X1. Last one done 11.06.2022? 4. H/o OHE last year X1 on [...] ASSESSMENT/PLAN: Madhavi Avalos is a 62 y.o. [facility] female with what appears to be decompensated HARRISON cirrhosis, who comes to the clinic today for a LT evaluation and for further management pts cell [phone] 1. Decompensated cirrhosis: - Etiology: NAFLD/HARRISON - [...] Colonoscopy: Return to clinic in 3 months Amandeep NEAL Plant Mechanic in Clinical Medicine Department of Internal medicine Pager:[phone] This nurse used petal shaper hand [id number]. This nurse verified pts name and . [...] list. documented in this encounter [facility] 05-23-2023 Instructions Amandeep Vital MD - 05/23/2023 10:30 AM EDT [...] training documented in this encounter [facility] 11-07-2022 History of Presen t illness Narrative Images from the original note were not included. Division of Gastroenterology, Hepatology and Nutrition HEP OP NOTE: HEPATOLOGY OUTPATIENT NOTE PRIMARY CARE PHYSICIAN: No primary care provider on file. REFERRING PROVIDER: Terry Estrada DO [address] [address] HEPATOLOGY/GI DIAGNOSIS: 1. Decompensated cirrhosis from HARRISON- [...] ILLNESS: Madhavi Avalos is a 62 y.o. [facility] female with what appears to be [...] ASSESSMENT/PLAN: Madhavi Avalos is a 62 y.o. [facility] female with what appears to be [...] next visit Return to clinic in 3 Amandeep NEAL Plant Mechanic in Clinical Medicine Department of Internal medicine Pager:[phone] This ROLL THREADER OPERATOR verified patient's name and through videotape operator #[id number]. documented in this encounter [facility] 11-07-2022 Instructions Amandeep Vital MD - 11/07/2022 4:30 PM EST [...] training documented in this encounter [facility] Decompensated hepatic cirrhosis [facility] Diagnosis Decompensated hepatic cirrhosis- Primary [facility] Diagnosis Other ascites [facility] Diagnosis Other ascites- Primary Other cirrhosis of liver Other ascites Other cirrhosis of liver Other ascites Other cirrhosis of liver [facility] Diagnosis Other ascites Other cirrhosis of liver Decompensated hepatic cirrhosis- Primary Other ascites Other cirrhosis of liver [facility] Diagnosis Other ascites Other ascites Other cirrhosis of liver [facility] Diagnosis Other ascites Other cirrhosis of liver Decompensated hepatic cirrhosis 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 [facility] Diagnosis 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- Primary Other chronic nonalcoholic liver disease [facility] Reason for Referral Specialty Diagnoses / Procedures Referred By Contac t Referred To Contact Echocardiography Diagnoses Decompensated hepatic cirrhosis Procedures ECHOCARDIOGRAM CO ECHO HEART XTHORACIC,COMPLETE W DOPPLER Amandeep Vital MD [address] [place] [id number] [facility] [place] [address] 2nd [place] [address] Referral ID Status Reason Start Date Expiration Date Visits Re quested Visits Authorized [id number] Closed 02/13/2023 03/09/2024 1 1 Specialty Diagnoses / Procedures Referred By Contac t Referred To Contact Diagnoses Decompensated hepatic cirrhosis Procedures US ABDOMEN RUQ/LIVER/GB Amandeep Vital MD [address] [place] [id number] Referral ID Status Reason Start Date Expiration Date V isits Requested Visits Authorized [id number] New Request 05/23/2023 06/16/2024 1 1 Specialty Diagnoses / Procedures Referred By Dorian t Referred To Contact Diagnoses Decompensated hepatic cirrhosis Procedures INTERVENTIONAL UPPER ENDOSCOPY INTERVENTIONAL UPPER ENDOSCOPY CO ESOPHAGOGASTRODUODENOSCOPY TRANSORAL DIAGNOSTIC Amandeep Vital MD [address] [place] [address] Referral ID Status Reason Start Date Expiration Date V isits Requested Visits Authorized [id number] New Request 05/23/2023 06/16/2024 1 1 Specialty Diagnoses / Procedures Referred By Contac t Referred To Contact Diagnoses Other ascites Procedures CT ABDOMEN/PELVIS WITH CONTRAST CHG CT SCAN,ABDOMENT AND PELVIS,W CONTRAST Amandeep Vital MD [address] [place] [address] Referral ID Status Reason Start Date Expiration Date V isits Requested Visits Authorized [id number] New Request 06/20/2023 07/14/2024 1 1 Specialty Diagnoses / Procedures Referred By Contac t Referred To Contact Diagnoses Other ascites Other cirrhosis of liver Procedures CASE REQUEST DEPARTMENT USE ONLY INTERVENTIONAL RADIOLOGY Haile Maldonado, DIRECTOR CHEMISTRY-INDUSTRIAL DESIGN ENGINEER [address] [place] [address] Referral ID Status Reason Start Date Expiration Date V isits Requested Visits Authorized [id number] New Request 08/10/2023 09/03/2024 1 1 Specialty Diagnoses / Procedures Referred By Contac t Referred To Contact Diagnoses Other ascites Procedures ECHOCARDIOGRAM CO ECHO HEART XTHORACIC,COMPLETE W DOPPLER Haile Maldonado DIRECTOR CHEMISTRY-INDUSTRIAL DESIGN ENGINEER [address] [place] [address] Referral ID Status Reason Start Date Expiration Date V isits Requested Visits Authorized [id number] New Request 08/10/2023 09/03/2024 1 1 Specialty Diagnoses / Procedures Referred By Contac t Referred To Contact Echocardiography Diagnoses Other ascites Procedures ECHOCARDIOGRAM CO ECHO HEART XTHORACIC,COMPLETE W DOPPLER Haile Maldonado, DIRECTOR CHEMISTRY-INDUSTRIAL DESIGN ENGINEER [address] [place] [address] [facility] [place] [address] [place] [address] Referral ID Status Reason Start Date Expiration Date Visits Re quested Visits Authorized [id number] Closed 08/10/2023 09/03/2024 1 1 Specialty Diagnoses / Procedures Referred By Contac t Referred To Contact Procedures DVT/VTE RISK ASSESSMENT Seth Hines MD, MPH [address] [facility] 7th [place] [address] Referral ID Status Reason Start Date Expiration Date V isits Requested Visits Authorized [id number] New Request 08/28/2023 09/21/2024 1 1 Specialty Diagnoses / Procedures Referred By Contac t Referred To Contact Diagnoses 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 [place] [address] Referral ID Status Reason Start Date Expiration Date V isits Requested Visits Authorized [id number] New Request 10/16/2023 11/09/2024 1 1 Referral ID Status Reason Start Date Expiration Date V isits Requested Visits Authorized [id number] New Request 01/02/2024 01/26/2025 1 1 Advance Directives No Advanced Directives Records FoundLatest Code Status on File Code Status Date Activated Date Inactivated Comments Full Code 08/28/2023 4:50 PM Summary Purpose Family History No Family History Records Found Additional Source Comments Reason for Visit (unrecogniz ed section and content) Specialty Diagnoses / Procedures Referred By Dorian t Referred To Contact Gastroenterology Diagnoses 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 Friend, Terry, [address] [address] Referral ID Status Reason Start Date Expiration Date V isits Requested Visits Authorized [id number] New Request 03/17/2022 04/11/2023 1 1 Specialty Diagnoses / Procedures Referred By Contac t Referred To Contact Echocardiography Diagnoses Decompensated hepatic cirrhosis Procedures ECHOCARDIOGRAM CO ECHO HEART XTHORACIC,COMPLETE W DOPPLER Amandeep Vital MD [address] [place] [address] Echocardi[facility] [place] [address] [address] Referral ID Status Reason Start Date Expiration Date Visits Re quested Visits Authorized [id number] Closed 02/13/2023 03/09/2024 1 1 Reason Comments Follow-up Specialty Diagnoses / Procedures Referred By Contac t Referred To Contact Diagnoses Other ascites Procedures CT ABDOMEN/PELVIS WITH CONTRAST CHG CT SCAN,ABDOMENT AND PELVIS,W CONTRAST Amandeep Vital MD [address] [place] [address] Referral ID Status Reason Start Date Expiration Date V isits Requested Visits Authorized [id number] New Request 06/20/2023 07/14/2024 1 1 Reason Comments Consult Specialty Diagnoses / Procedures Referred By Contac t Referred To Contact Interventional Radiology Diagnoses Decompensated hepatic cirrhosis Amandeep Vital MD [address] [place] [address] Referral ID Status Reason Start Date Expiration Date V isits Requested Visits Authorized [id number] New Request 06/18/2023 07/12/2024 1 1 Reason Comments Follow-up Concerns with throat Specialty Diagnoses / Procedures Referred By Contac t Referred To Contact Echocardiography Diagnoses Other ascites Procedures ECHOCARDIOGRAM CO ECHO HEART XTHORACIC,COMPLETE W DOPPLER Haile Maldonado, DIRECTOR CHEMISTRY-INDUSTRIAL DESIGN ENGINEER [address] [place] [address] E[facility]ocardi[facility] [place] [address] [place] [address] Referral ID Status Reason Start Date Expiration Date Visits Re quested Visits Authorized [id number] Closed 08/10/2023 09/03/2024 1 1 Specialty Diagnoses / Procedures Referred By Contac t Referred To Contact Diagnoses Other ascites Other cirrhosis of liver Other ascites [R18.8] Other cirrhosis of liver [K74.69] Procedures CO INSERT TRANSVEN INTRAHEP PORTOSYS SHUNT CO ABDOM PARACENTESIS DX/THER W IMAGING GUIDANCE INSERTION SHUNT TRANSVENOUS INTRAHEPATIC PORTOSYSTEMIC PERCUTANEOUS (TIPS) PARACENTESIS ABDOMINAL W/ IMAGING GUIDANCE Seth Hines MD, MPH [address] [facility] 7th [place] [address] [facility] [address] [place] [address] Referral ID Status Reason Start Date Expiration Date Visits Re quested Visits Authorized [id number] 1 1 Reason Comments Post-Discharge Follow Up Reason Comments Follow-up Pt states no appetit victor m Dizziness Pt states she fell t wice previosuly Care Teams (unrecognized sec tion and content) Guide Dog Trainer Relationship Specialty Start Date End Date Darlene Garibay MD [address] [place] [address] [place] [address] PCP - General Family Medicine 05/23/23 Guide Dog Trainer Relationship Specialty Start Date End Date Darlene Garibay MD [address] [place] [address] PCP - General Family Medicine 05/23/23 Guide Dog Trainer Relationship Specialty Start Date End Date Darlene Garibay MD [address] [place] [address] PCP - General Family Medicine 05/23/23 Guide Dog Trainer Relationship Specialty Start Date End Date Darlene Garibay MD [address] [place] [address] PCP - General Family Medicine 05/23/23 Guide Dog Trainer Relationship Specialty Start Date End Date Darlene Garibay MD [address] [place] [address] PCP - General Family Medicine 05/23/23 Scheduled Active and Recently Administ ered Medications (unrecognized section and content) Continuous Medication Order 08/28/2023 08/29/2023 08/30/2023 albumin human 5 % injection 25 g 25 g, Intravenous, CONTINUOUS, Starting on Sun08/29/23 at 0700, Until Sun08/30/23 at 1842, Indications: Fluid Resuscitation, Intra-op/Intra-Proc 0946 (Given - [facility]pin [facility] PRN Medication Order 08/28/2023 08/29/2023 08/30/2023 Acetaminophen (TYLENOL) tablet 650 mg 650 mg, Oral, EVERY 6 HOURS NEEDED, Starting on Sun08/28/23 at 1141, Until Ashley 08/30/23 at 1842, Mild Pain, Oral temp > 100.4 F, Maximum dose of acetaminophen is 4000 mg from all sources in 24 hours. Ampicillin-Sulbactam Sodium (UNASYN) 3 g in sodium chloride 0.9% (MB PLUS) 100 mL (total volume) IVPB (COMPLETED) 3 g, Intravenous, Administer over 30 Minutes, CURTAIN SUPERVISOR TO PROCEDURE, 1 dose, Starting on Sun08/29/23 [...] NEEDED, Starting on Sun08/28/23 at 1141, Until Ashley 08/30/23 at 1842, Carrier Fluid - See Admin. [...] NEEDED, Starting on Sun08/28/23 at 1141, Until Ashley 08/30/23 at 1842, Nausea / Vomiting, 1st line for Nausea/Vomiting Or Ondansetron (ZOFRAN) tablet 4 mgJump to med 4 mg, Oral, EVERY 6 HOURS NEEDED, Starting on Sun08/28/23 at 1141, Until Ashley 08/30/23 at 1842, Nausea / Vomiting, 1st line [...] BE BASED ON THE PRIMARY CLINICAL RECORDS. [employer] provides no warranty or guarantee of the accuracy or completeness of information in this document.
== END | disposition home or self-care (01) ==
PROVIDERS: PCP Family Medicine; Referring Provider Internal Medicine Gastroenterology; Visit Provider Internal Medicine Gastroenterology
DX: K75.81 Nonalcoholic steatohepatitis (NASH) (principal); K74.69 Other cirrhosis of liver; R18.8 Other ascites
CPT/HCPCS: 96365; 96366; 49083; J7050; P9047

== ENCOUNTER → 2024-01-17 | Outpatient (CLI) | payer SELFPAY ==
[2024-01-17 11:10] VITALS: BP 89/51; PULSE 86; RESP 18; O2SAT 99
[2024-01-17 11:30] VITALS: BP 99/53; PULSE 85; RESP 18; O2SAT 99
[2024-01-17] MEDS: 0.9% NaCl Peripheral Flush Adult/Peds IV ×2 (12:00→12:16)
[2024-01-17] MEDS: Albumin Human 25% (100 mL) 25 GM/100 ML BAG IV (12:16)
[2024-01-17 12:41] VITALS: BP 91/61; PULSE 83; RESP 18; O2SAT 99
[2024-01-17 12:42] VITALS: BP 93/52; PULSE 82; RESP 18; O2SAT 99
--- NOTE | 2024-01-17 13:10 | PRO.PCM_ITS ---
Procedure Report Date of Procedure: 01/17/24 Assessment & Plan Assessment/Plan (1) Abdominal ascites: QUALIFIERS: Ascites type: other type Qualified Code(s): R18.8 - Other ascites PLAN: PROCEDURE: Ultrasound guided paracentesis ORDERING PROVIDER: Dr. Estrada INDICATION: Female, 63 years old. Ascites. PROVIDER: VANCE Painting TECHNIQUE: The risks, benefits, and alternatives to the procedure were explained to the patient. The specific risks of bleeding, infection, and damage to bowel were detailed and accepted. Witnessed informed consent was obtained. The abdomen was ultrasonographically surveyed. An appropriate pocket of fluid was identified in the left lower quadrant. The skin was prepped with chlorhexidine and sterile field established. 2% lidocaine was used for local anesthetic. Using ultrasound guidance, the peritoneal cavity was accessed with a 5-Cook Islander paracentesis needle/catheter system. The trocar was removed. A total of 7000 ml of clear yellow colored fluid was removed from the peritoneal cavity. The catheter was removed and a sterile dressing was applied. The procedure was well tolerated. IMPRESSION: Successful ultrasound-guided paracentesis with left lower quadrant access site. Procedures Radiology Radiology US Procedures: [id number] Paracentesis
[2024-01-17] MEDS: Albumin Human 25% (50 mL) 12.5 GM/50 ML IV.SOLN IV (13:35)
[2024-01-17 14:39] VITALS: BP 82/46; PULSE 88; RESP 16; TEMP 36.7; O2SAT 96
== END | disposition home or self-care (01) ==
LOC: US 10:55
PROVIDERS: PCP Family Medicine; Referring Provider Internal Medicine Gastroenterology; Visit Provider Internal Medicine Gastroenterology
DX: K75.81 Nonalcoholic steatohepatitis (NASH) (principal)
CPT/HCPCS: 96365; 96366; 49083; J7050; P9047; A4216

== ENCOUNTER → 2024-01-24 | Outpatient (CLI) | payer SELFPAY ==
[2024-01-24 10:38] VITALS: BP 114/63; PULSE 103; RESP 16; TEMP 36.8; O2SAT 98
[2024-01-24] MEDS: Lidocaine 2% (20 ml mdv) 20 ML Vial INFILT (10:42)
[2024-01-24 10:45] VITALS: BP 100/60; PULSE 91; RESP 16; O2SAT 97
[2024-01-24 11:00] VITALS: BP 97/55; PULSE 87; RESP 16; O2SAT 95
[2024-01-24 11:07] VITALS: BP 93/45; PULSE 93; RESP 16; O2SAT 97
--- NOTE | 2024-01-24 14:16 | PCM.OP.PRO ---
Procedure Report Date of Procedure: 01/24/24 Assessment & Plan Assessment/Plan (1) Abdominal ascites: QUALIFIERS: Ascites type: other type Qualified Code(s): R18.8 - Other ascites PLAN: PROCEDURE: Ultrasound guided paracentesis ORDERING PROVIDER: Dr. Estrada INDICATION: Female, 63 years old. Abdominal ascites. PROVIDER: VANCE Painting TECHNIQUE: The risks, benefits, and alternatives to the procedure were explained to the patient. The specific risks of bleeding, infection, and damage to bowel were detailed and accepted. Witnessed informed consent was obtained. The abdomen was ultrasonographically surveyed. An appropriate pocket of fluid was identified in the left lower quadrant. The skin was prepped with chlorhexidine and sterile field established. 2% lidocaine was used for local anesthetic. Using ultrasound guidance, the peritoneal cavity was accessed with a 5-Portuguese paracentesis needle/catheter system. The trocar was removed. A total of 4950 ml of clear yellow colored fluid was removed from the peritoneal cavity. The catheter was removed and a sterile dressing was applied. The procedure was well tolerated. IMPRESSION: Successful ultrasound-guided paracentesis with left lower quadrant access site. Procedures Radiology Radiology US Procedures: [id number] Paracentesis
== END | disposition home or self-care (01) ==
PROVIDERS: PCP Family Medicine; Referring Provider Internal Medicine Gastroenterology; Visit Provider Internal Medicine Gastroenterology
DX: K75.81 Nonalcoholic steatohepatitis (NASH) (principal)
CPT/HCPCS: 49083

== ENCOUNTER → 2024-01-31 | Outpatient (CLI) | payer SELFPAY ==
[2024-01-31 10:45] VITALS: BP 100/52; PULSE 104; RESP 18; TEMP 36.8; O2SAT 98
[2024-01-31 11:00] VITALS: BP 98/60; PULSE 104; RESP 18; O2SAT 94
[2024-01-31 11:13] VITALS: BP 95/58; PULSE 104; RESP 18; O2SAT 99
--- NOTE | 2024-01-31 11:52 | PRO.PCM_ITS ---
Procedure Report Date of Procedure: 01/31/24 Assessment & Plan Assessment/Plan (1) Abdominal ascites: QUALIFIERS: Ascites type: other type Qualified Code(s): R18.8 - Other ascites PLAN: PROCEDURE: Ultrasound guided paracentesis ORDERING PROVIDER: VANCE Pianting INDICATION: Female, 64 years old. Abdominal ascites. PROVIDER: VANCE Painting TECHNIQUE: The risks, benefits, and alternatives to the procedure were explained to the patient and daughter. The specific risks of bleeding, infection, and damage to bowel were detailed and accepted. Witnessed informed consent was obtained. The abdomen was ultrasonographically surveyed. An appropriate pocket of fluid was identified in the right lower quadrant. The skin was prepped with ch lorhexidine and sterile field established. 2% lidocaine was used for local anesthetic. Using ultrasound guidance, the peritoneal cavity was accessed with a 5-Greenlandic paracentesis needle/catheter system. The trocar was removed. A total of 4350 ml of clear yellow colored fluid was removed from the peritoneal cavity. The catheter was removed and a sterile dressing was applied. The procedure was well tolerated. IMPRESSION: Successful ultrasound-guided paracentesis with right lower quadrant access site. Procedures Radiology Radiology US Procedures: [id number] Paracentesis
== END | disposition home or self-care (01) ==
PROVIDERS: PCP Family Medicine; Referring Provider Internal Medicine Gastroenterology; Visit Provider Internal Medicine Gastroenterology
DX: K75.81 Nonalcoholic steatohepatitis (NASH) (principal)
CPT/HCPCS: 49083

== ENCOUNTER → 2024-02-07 | Outpatient (CLI) | payer SELFPAY ==
[2024-02-07 11:00] VITALS: BP 85/62; PULSE 90; RESP 16; O2SAT 97
[2024-02-07] MEDS: Lidocaine 2% (20 ml mdv) 20 ML Vial INFILT (11:08)
[2024-02-07 11:15] VITALS: BP 98/58; PULSE 98; RESP 16; O2SAT 98
[2024-02-07 11:30] VITALS: BP 98/56; PULSE 96; RESP 16; O2SAT 98
[2024-02-07 11:37] VITALS: BP 85/52; PULSE 91; RESP 16; O2SAT 98
[2024-02-07] MEDS: Albumin Human 25% (100 mL) 25 GM/100 ML BAG IV ×2 (12:13→13:37)
--- NOTE | 2024-02-07 12:41 | PCM.OP.PRO ---
Procedure Report Date of Procedure: 02/07/24 Assessment & Plan Assessment/Plan (1) Abdominal ascites: QUALIFIERS: Ascites type: other type Qualified Code(s): R18.8 - Other ascites PLAN: PROCEDURE: Ultrasound guided paracentesis INDICATION: Female, 64 years old. Abdominal ascites. PROVIDER: VANCE Painting TECHNIQUE: The risks, benefits, and alternatives to the procedure were explained to the patient and daughter. The specific risks of bleeding, infection, and damage to bowel were detailed and accepted. Witnessed informed consent was obtained. The abdomen was ultrasonographically surveyed. An appropriate pocket of fluid was identified in the right upper quadrant. The skin was prepped with chlorhexidine and sterile field established. 2% lidocaine was used for local anesthetic. Using ultrasound guidance, the peritoneal cavity was accessed with a 5-Estonian paracentesis needle/catheter system. The trocar was removed. A total of 7800 ml of clear yellow colored fluid was removed from the peritoneal cavity. The catheter was removed and a sterile dressing was applied. The procedure was well tolerated. IMPRESSION: Successful ultrasound-guided paracentesis with right upper quadrant access site. Procedures Radiology Radiology US Procedures: [id number] Thoracentesis
[2024-02-07 15:35] VITALS: BP 86/61; PULSE 89; RESP 16; TEMP 36.4
== END | disposition home or self-care (01) ==
LOC: US 10:54
PROVIDERS: PCP Family Medicine; Referring Provider Internal Medicine Gastroenterology; Visit Provider Internal Medicine Gastroenterology
DX: K75.81 Nonalcoholic steatohepatitis (NASH) (principal); R18.8 Other ascites
CPT/HCPCS: 96365; 96366; 49083; J7050; P9047

== ENCOUNTER → 2024-02-14 | Outpatient (CLI) | payer SELFPAY ==
[2024-02-14] MEDS: Lidocaine 2% (20 ml mdv) 20 ML Vial INFILT (11:16)
[2024-02-14 12:01] VITALS: BP 94/52; BP 99/53; PULSE 73; PULSE 74; RESP 16; RESP 18; TEMP 36.1; TEMP 36.7; O2SAT 98; O2SAT 99; BMI 23.1
[2024-02-14 12:02] VITALS: BP 94/51; BP 99/61; PULSE 74; PULSE 76; RESP 18; O2SAT 100; O2SAT 98
[2024-02-14] MEDS: 0.9% Saline Lock 10 ML Syringe IV ×2 (12:09→12:18)
[2024-02-14] MEDS: Albumin Human 25% (100 mL) 25 GM/100 ML BAG IV (12:18)
--- NOTE | 2024-02-14 12:38 | PRO.PCM_ITS ---
Procedure Report Date of Procedure: 02/14/24 Assessment & Plan Assessment/Plan (1) Abdominal ascites: QUALIFIERS: Ascites type: other type Qualified Code(s): R18.8 - Other ascites PLAN: PROCEDURE: Ultrasound guided paracentesis ORDERING PROVIDER: Dr. Estrada INDICATION: Female, 64 years old. Abdominal ascites. PROVIDER: VANCE Painting TECHNIQUE: The risks, benefits, and alternatives to the procedure were explained to the patient. The specific risks of bleeding, infection, and damage to bowel were detailed and accepted. Witnessed informed consent was obtained. The abdomen was ultrasonographically surveyed. An appropriate pocket of fluid was identified in the right lower quadrant. The skin was prepped with chlorhexidine and sterile field established. 2% lidocaine was used for local anesthetic. Using ultrasound guidance, the peritoneal cavity was accessed with a 5-Bulgarian paracentesis needle/catheter system. The trocar was removed. A total of 6900 ml of clear yellow colored fluid was removed from the peritoneal cavity. The catheter was removed and a sterile dressing was applied. The procedure was well tolerated. IMPRESSION: Successful ultrasound-guided paracentesis with right lower quadrant access site. Procedures Radiology Radiology US Procedures: [id number] Paracentesis
[2024-02-14] MEDS: Albumin Human 25% (50 mL) 12.5 GM/50 ML IV.SOLN IV (13:40)
[2024-02-14 14:45] VITALS: BP 94/46; PULSE 78
== END | disposition home or self-care (01) ==
PROVIDERS: PCP Family Medicine; Referring Provider Internal Medicine Gastroenterology; Visit Provider Internal Medicine Gastroenterology
DX: K75.81 Nonalcoholic steatohepatitis (NASH) (principal); R18.8 Other ascites
CPT/HCPCS: 96365; 96366; 49083; J7050; P9047

== ENCOUNTER → 2024-02-21 | Outpatient (CLI) | payer SELFPAY ==
[2024-02-21] MEDS: Lidocaine 2% (20 ml mdv) 20 ML Vial INFILT (10:53)
[2024-02-21] MEDS: 0.9% NaCl Peripheral Flush Adult/Peds IV (11:30)
[2024-02-21] MEDS: Albumin Human 25% (100 mL) 25 GM/100 ML BAG IV ×2 (11:45→13:12)
[2024-02-21 11:47] VITALS: BP 101/55; PULSE 82; RESP 18; TEMP 36.7; O2SAT 98
[2024-02-21 11:48] VITALS: BP 90/41; BP 94/53; PULSE 78; PULSE 79; RESP 18; O2SAT 97; O2SAT 98
[2024-02-21 11:49] VITALS: BP 94/44; PULSE 79; RESP 18; O2SAT 99
--- NOTE | 2024-02-21 12:29 | PCM.OP.PRO ---
Procedure Report Date of Procedure: 02/21/24 Assessment & Plan Assessment/Plan (1) Abdominal ascites: QUALIFIERS: Ascites type: other type Qualified Code(s): R18.8 - Other ascites PLAN: PROCEDURE: Ultrasound guided paracentesis ORDERING PROVIDER: Dr. Estrada INDICATION: Female, 64 years old. Abdominal ascites. PROVIDER: VANCE Painting TECHNIQUE: The risks, benefits, and alternatives to the procedure were explained to the patient and daughter. The specific risks of bleeding, infection, and damage to bowel were detailed and accepted. Witnessed informed consent was obtained. The abdomen was ultrasonographically surveyed. An appropriate pocket of fluid was identified in the left lower quadrant. The skin was prepped with chlorhexidine and sterile field established. 2% lidocaine was used for local anesthetic. Using ultrasound guidance, the peritoneal cavity was accessed with a 5-Spanish paracentesis needle/catheter system. The trocar was removed. A total of 7600 ml of clear yellow colored fluid was removed from the peritoneal cavity. The catheter was removed and a sterile dressing was applied. The procedure was well tolerated. IMPRESSION: Successful ultrasound-guided paracentesis with left lower quadrant access site. Procedures Radiology Radiology US Procedures: [id number] Paracentesis
[2024-02-21 15:07] VITALS: BP 91/45; PULSE 76; RESP 16
== END | disposition home or self-care (01) ==
LOC: US 10:34
PROVIDERS: PCP Family Medicine; Referring Provider Internal Medicine Gastroenterology; Visit Provider Internal Medicine Gastroenterology
DX: K75.81 Nonalcoholic steatohepatitis (NASH) (principal)
CPT/HCPCS: 96365; 96366; 49083; J7050; P9047; A4216

== ENCOUNTER → 2024-02-28 | Outpatient (CLI) | payer SELFPAY ==
--- NOTE | 2024-02-28 10:29 | US_ITS ---
PROCEDURE: Ultrasound guided paracentesis. DATE OF EXAMINATION: February 28, 2024. INDICATION: Female, 64 years old. Ascites. PHYSICIAN: Valeriano Hull M.D. TECHNIQUE: The risks, benefits, and alternatives to the procedure were explained to the patient. The specific risks of bleeding, infection, and damage to bowel were detailed and accepted. Witnessed informed consent was obtained. The abdomen was ultrasonographically surveyed. An appropriate pocket of fluid was identified at the left lower quadrant. The skin were cleaned and prepped in the usual sterile fashion. Using ultrasound guidance, the peritoneal cavity was accessed with a 5-Filipino paracentesis needle/catheter system. The trocar was removed. A total of 6750 ml of willis-colored fluid were removed from the peritoneal cavity. The catheter was removed and a sterile dressing was applied. The procedure was well tolerated. US/Paracentesis with US IMPRESSION: Ultrasound guided paracentesis. Electronically Signed: Valeriano Hull MD at 12:58 EDT ,
[2024-02-28 10:48] VITALS: BP 97/61; PULSE 80; RESP 16; TEMP 36.7; O2SAT 98
[2024-02-28] MEDS: Lidocaine 2% (20 ml mdv) 20 ML Vial INFILT (10:55)
[2024-02-28 11:03] VITALS: BP 94/63; PULSE 97; RESP 16; O2SAT 97
[2024-02-28 11:18] VITALS: BP 89/59; PULSE 79; RESP 16; O2SAT 97
[2024-02-28 11:21] VITALS: BP 90/54; PULSE 84; RESP 16; O2SAT 96
[2024-02-28] MEDS: Albumin Human 25% (100 mL) 25 GM/100 ML BAG IV (12:20)
[2024-02-28] MEDS: Albumin Human 25% (50 mL) 12.5 GM/50 ML IV.SOLN IV (14:05)
[2024-02-28 15:06] VITALS: BP 100/54; PULSE 86; RESP 16; TEMP 36.2; O2SAT 98
== END | disposition home or self-care (01) ==
LOC: US 10:28
PROVIDERS: PCP Family Medicine; Referring Provider Internal Medicine Gastroenterology; Visit Provider Internal Medicine Gastroenterology
DX: K75.81 Nonalcoholic steatohepatitis (NASH) (principal); R18.8 Other ascites
CPT/HCPCS: 49083; J7050; P9047; A4216

== ENCOUNTER → 2024-03-06 | Outpatient (CLI) | payer SELFPAY ==
[2024-03-06] MEDS: Lidocaine 2% (20 ml mdv) 20 ML Vial INFILT (10:35)
[2024-03-06] MEDS: 0.9% Saline Lock 10 ML Syringe IV ×2 (11:28→11:48)
--- NOTE | 2024-03-06 11:29 | PCM.OP.PRO ---
Procedure Report Date of Procedure: 03/06/24 Assessment & Plan Assessment/Plan (1) Abdominal ascites: QUALIFIERS: Ascites type: other type Qualified Code(s): R18.8 - Other ascites PLAN: PROCEDURE: Ultrasound guided paracentesis ORDERING PROVIDER: Dr. Estrada INDICATION: Female, 64 years old. Ascites. PROVIDER: VANCE Painting TECHNIQUE: The risks, benefits, and alternatives to the procedure were explained to the patient and daughter. The specific risks of bleeding, infection, and damage to bowel were detailed and accepted. Witnessed informed consent was obtained. The abdomen was ultrasonographically surveyed. An appropriate pocket of fluid was identified in the right upper quadrant. The skin was prepped with chlorhexidine and sterile field established. 2% lidocaine was used for local anesthetic. Using ultrasound guidance, the peritoneal cavity was accessed with a 5-Upper Sorbian paracentesis needle/catheter system. The trocar was removed. A total of 6400 ml of clear yellow colored fluid was removed from the peritoneal cavity. The catheter was removed and a sterile dressing was applied. The procedure was well tolerated. IMPRESSION: Successful ultrasound-guided paracentesis with right upper quadrant access site. Procedures Radiology Radiology US Procedures: [id number] Paracentesis
[2024-03-06 11:30] VITALS: BP 105/58; PULSE 99; RESP 18; O2SAT 97
[2024-03-06 11:31] VITALS: BP 92/65; PULSE 91; RESP 18; O2SAT 96
[2024-03-06 11:32] VITALS: BP 93/50; PULSE 96; RESP 18; O2SAT 97
[2024-03-06] MEDS: Albumin Human 25% (100 mL) 25 GM/100 ML BAG IV (11:47)
[2024-03-06] MEDS: Albumin Human 25% (50 mL) 12.5 GM/50 ML IV.SOLN IV (13:10)
[2024-03-06 14:13] VITALS: BP 88/48; PULSE 79; RESP 16; TEMP 36.6; O2SAT 100
== END | disposition home or self-care (01) ==
LOC: US 10:06
PROVIDERS: PCP Family Medicine; Referring Provider Internal Medicine Gastroenterology; Visit Provider Internal Medicine Gastroenterology
DX: K75.81 Nonalcoholic steatohepatitis (NASH) (principal); R18.8 Other ascites
CPT/HCPCS: 96365; 96366; 49083; J7050; P9047; A4216

== ENCOUNTER → 2024-03-13 | Outpatient (CLI) | payer SELFPAY ==
[2024-03-13 11:00] VITALS: BP 97/62; PULSE 97; RESP 18; O2SAT 99
[2024-03-13] MEDS: Lidocaine 2% (20 ml mdv) 20 ML Vial INFILT (11:05)
[2024-03-13 11:14] VITALS: BP 99/52; PULSE 94; RESP 18; O2SAT 98
[2024-03-13 11:30] VITALS: BP 98/60; PULSE 88; RESP 18; O2SAT 98
[2024-03-13] MEDS: 0.9% Saline Lock 10 ML Syringe IV ×2 (11:34→11:59)
[2024-03-13 11:47] VITALS: BP 103/66; PULSE 78; RESP 16; TEMP 36.4; O2SAT 98
[2024-03-13] MEDS: Albumin Human 25% (100 mL) 25 GM/100 ML BAG IV (11:59)
--- NOTE | 2024-03-13 12:47 | PRO.PCM_ITS ---
Procedure Report Date of Procedure: 03/13/24 Assessment & Plan Assessment/Plan (1) Abdominal ascites: QUALIFIERS: Ascites type: other type Qualified Code(s): R18.8 - Other ascites PLAN: PROCEDURE: Ultrasound guided paracentesis ORDERING PROVIDER: Dr. Estrada INDICATION: Female, 64 years old. Abdominal ascites. PROVIDER: VANCE Painting TECHNIQUE: The risks, benefits, and alternatives to the procedure were explained to the patient. The specific risks of bleeding, infection, and damage to bowel were detailed and accepted. Witnessed informed consent was obtained. The abdomen was ultrasonographically surveyed. An appropriate pocket of fluid was identified in the right lower quadrant. The skin was prepped with chlorhexidine and sterile field established. 2% lidocaine was used for local anesthetic. Using ultrasound guidance, the peritoneal cavity was accessed with a 5-Kiswahili paracentesis needle/catheter system. The trocar was removed. A total of 7200 ml of clear yellow colored fluid was removed from the peritoneal cavity. The catheter was removed and a sterile dressing was applied. The procedure was well tolerated. IMPRESSION: Successful ultrasound-guided paracentesis with right lower quadrant access site. Procedures Radiology Radiology US Procedures: [id number] Paracentesis
[2024-03-13] MEDS: Albumin Human 25% (50 mL) 12.5 GM/50 ML IV.SOLN IV (13:28)
[2024-03-13 14:30] VITALS: BP 99/55; PULSE 79; RESP 16
== END | disposition home or self-care (01) ==
LOC: US 10:48
PROVIDERS: PCP Family Medicine; Referring Provider Internal Medicine Gastroenterology; Visit Provider Internal Medicine Gastroenterology
DX: K75.81 Nonalcoholic steatohepatitis (NASH) (principal); R18.8 Other ascites
CPT/HCPCS: 96365; 96366; 49083; J7050; P9047; A4216

== ENCOUNTER → 2024-03-20 | Outpatient (CLI) | payer SELFPAY ==
[2024-03-20 11:03] VITALS: BP 96/41; PULSE 83; RESP 16; O2SAT 96
[2024-03-20] MEDS: Lidocaine 2% (20 ml mdv) 20 ML Vial INFILT (11:05)
[2024-03-20 11:15] VITALS: BP 92/38; PULSE 84; RESP 16; O2SAT 95
[2024-03-20 11:30] VITALS: BP 84/48; PULSE 82; RESP 16; O2SAT 95
[2024-03-20 11:41] VITALS: BP 91/41; PULSE 74; RESP 16; O2SAT 96
--- NOTE | 2024-03-20 14:18 | PRO.PCM_ITS ---
Procedure Report Date of Procedure: 03/20/24 Assessment & Plan Assessment/Plan (1) Abdominal ascites: QUALIFIERS: Ascites type: other type Qualified Code(s): R18.8 - Other ascites PLAN: PROCEDURE: Ultrasound guided paracentesis ORDERING PROVIDER: Dr. Estrada INDICATION: Female, 64 years old. Abdominal ascites. PROVIDER: VANCE Painting TECHNIQUE: The risks, benefits, and alternatives to the procedure were explained to the patient. The specific risks of bleeding, infection, and damage to bowel were detailed and accepted. Witnessed informed consent was obtained. The abdomen was ultrasonographically surveyed. An appropriate pocket of fluid was identified in the right lower quadrant. The skin was prepped with chlorhexidine and sterile field established. 2% lidocaine was used for local anesthetic. Using ultrasound guidance, the peritoneal cavity was accessed with a 5-Luxembourgish paracentesis needle/catheter system. The trocar was removed. A total of 4500 ml of clear yellow colored fluid was removed from the peritoneal cavity. The catheter was removed and a sterile dressing was applied. The procedure was well tolerated. IMPRESSION: Successful ultrasound-guided paracentesis with right lower quadrant access site. Procedures Radiology Radiology US Procedures: [id number] Paracentesis
== END | disposition home or self-care (01) ==
PROVIDERS: PCP Family Medicine; Visit Provider Internal Medicine Gastroenterology
DX: K75.81 Nonalcoholic steatohepatitis (NASH) (principal); R18.8 Other ascites
CPT/HCPCS: 49083

== ENCOUNTER → 2024-03-28 | Outpatient (CLI) | payer SELFPAY ==
[2024-03-28 10:44] VITALS: BP 103/46; PULSE 87; RESP 16; O2SAT 99
[2024-03-28] MEDS: Lidocaine 2% (20 ml mdv) 20 ML Vial INFILT (10:48)
[2024-03-28 10:59] VITALS: BP 87/55; PULSE 80; RESP 16; O2SAT 98
[2024-03-28 11:14] VITALS: BP 86/48; PULSE 97; RESP 16; O2SAT 99
[2024-03-28 11:39] VITALS: BP 92/48; PULSE 78; RESP 16; TEMP 36.3; O2SAT 99
[2024-03-28] MEDS: 0.9% Saline Lock 10 ML Syringe IV ×2 (11:42→11:56)
[2024-03-28] MEDS: Albumin Human 25% (100 mL) 25 GM/100 ML BAG IV ×2 (11:56→13:29)
--- NOTE | 2024-03-28 14:40 | PCM.OP.PRO ---
Procedure Report Date of Procedure: 03/28/24 Assessment & Plan Assessment/Plan (1) Abdominal ascites: QUALIFIERS: Ascites type: other type Qualified Code(s): R18.8 - Other ascites PLAN: PROCEDURE: Ultrasound guided paracentesis ORDERING PROVIDER: Dr. Estrada INDICATION: Female, 64 years old. Abdominal ascites. PROVIDER: VANCE Painting TECHNIQUE: The risks, benefits, and alternatives to the procedure were explained to the patient and daughter. The specific risks of bleeding, infection, and damage to bowel were detailed and accepted. Witnessed informed consent was obtained. The abdomen was ultrasonographically surveyed. An appropriate pocket of fluid was identified in the right lower quadrant. The skin was prepped with chlorhexidine and sterile field established. 2% lidocaine was used for local anesthetic. Using ultrasound guidance, the peritoneal cavity was accessed with a 5-Irish paracentesis needle/catheter system. The trocar was removed. A total of 7550 ml of clear yellow colored fluid was removed from the peritoneal cavity. The catheter was removed and a sterile dressing was applied. The procedure was well tolerated. IMPRESSION: Successful ultrasound-guided paracentesis with right lower quadrant access site. Procedures Radiology Radiology US Procedures: [id number] Paracentesis
[2024-03-28 15:07] VITALS: BP 103/48; PULSE 77; RESP 16; TEMP 36.2; O2SAT 99
== END | disposition home or self-care (01) ==
LOC: US 10:34
PROVIDERS: PCP Family Medicine; Visit Provider Internal Medicine Gastroenterology
DX: K75.81 Nonalcoholic steatohepatitis (NASH) (principal)
CPT/HCPCS: 49083; J7050; P9047

== ENCOUNTER → 2024-04-03 | Outpatient (CLI) | payer SELFPAY ==
[2024-04-03] VITALS (7 sets, daily range): BP systolic 81–93; BP diastolic 41–61; PULSE 80–90; RESP 16; O2SAT 98–100
[2024-04-03] MEDS: Lidocaine 2% (20 ml mdv) 20 ML Vial INFILT (12:10)
[2024-04-03] MEDS: Albumin Human 25% (100 mL) 25 GM/100 ML BAG IV ×2 (13:20→14:44)
[2024-04-03] MEDS: 0.9% NaCl Peripheral Flush Adult/Peds IV (13:22)
--- NOTE | 2024-04-03 14:11 | PCM.OP.PRO ---
Procedure Report Date of Procedure: 04/03/24 Assessment & Plan Assessment/Plan (1) Abdominal ascites: QUALIFIERS: Ascites type: other type Qualified Code(s): R18.8 - Other ascites PLAN: PROCEDURE: Ultrasound guided paracentesis ORDERING PROVIDER: Dr. Estrada INDICATION: Female, 64 years old. Abdominal ascites. PROVIDER: VANCE Painting TECHNIQUE: The risks, benefits, and alternatives to the procedure were explained to the patient. The specific risks of bleeding, infection, and damage to bowel were detailed and accepted. Witnessed informed consent was obtained. The abdomen was ultrasonographically surveyed. An appropriate pocket of fluid was identified in the right upper quadrant. The skin was prepped with chlorhexidine and sterile field established. 2% lidocaine was used for local anesthetic. Using ultrasound guidance, the peritoneal cavity was accessed with a 5-Romanian paracentesis needle/catheter system. The trocar was removed. A total of 8550 ml of clear yellow colored fluid was removed from the peritoneal cavity. The catheter was removed and a sterile dressing was applied. The procedure was well tolerated. IMPRESSION: Successful ultrasound-guided paracentesis with right upper quadrant access site. Procedures Radiology Radiology US Procedures: [id number] Paracentesis
== END | disposition home or self-care (01) ==
LOC: US 11:35
PROVIDERS: PCP Family Medicine; Referring Provider Internal Medicine Gastroenterology; Visit Provider Internal Medicine Gastroenterology
DX: R18.8 Other ascites (principal)
CPT/HCPCS: 96365; 96366; 49083; J7050; P9047

== ENCOUNTER → 2024-04-10 | Outpatient (CLI) | payer SELFPAY ==
[2024-04-10] VITALS (8 sets, daily range): BP systolic 87–105; BP diastolic 36–62; PULSE 78–120; RESP 16–18; TEMP 36.8; O2SAT 93–98
[2024-04-10] MEDS: Lidocaine 2% (20 ml mdv) 20 ML Vial INFILT (11:00)
[2024-04-10] MEDS: Albumin Human 25% (100 mL) 25 GM/100 ML BAG IV ×2 (12:06→13:28)
[2024-04-10] MEDS: 0.9% NaCl Peripheral Flush Adult/Peds IV (12:07)
--- NOTE | 2024-04-10 13:44 | PCM.OP.PRO ---
Procedure Report Date of Procedure: 04/10/24 Assessment & Plan Assessment/Plan (1) Abdominal ascites: QUALIFIERS: Ascites type: other type Qualified Code(s): R18.8 - Other ascites PLAN: PROCEDURE: Ultrasound guided paracentesis ORDERING PROVIDER: Dr. Estrada INDICATION: Female, 64 years old. Abdominal ascites. PROVIDER: VANCE Painting TECHNIQUE: The risks, benefits, and alternatives to the procedure were explained to the patient. The specific risks of bleeding, infection, and damage to bowel were detailed and accepted. Witnessed informed consent was obtained. The abdomen was ultrasonographically surveyed. An appropriate pocket of fluid was identified in the left lower quadrant. The skin was prepped with chlorhexidine and sterile field established. 2% lidocaine was used for local anesthetic. Using ultrasound guidance, the peritoneal cavity was accessed with a 5-Portuguese paracentesis needle/catheter system. The trocar was removed. A total of 8300 ml of clear yellow colored fluid was removed from the peritoneal cavity. The catheter was removed and a sterile dressing was applied. The procedure was well tolerated. IMPRESSION: Successful ultrasound-guided paracentesis with left lower quadrant access site. Procedures Radiology Radiology US Procedures: [id number] Paracentesis
== END | disposition home or self-care (01) ==
LOC: US 10:39
PROVIDERS: PCP Family Medicine; Referring Provider Internal Medicine Gastroenterology; Visit Provider Internal Medicine Gastroenterology
DX: R18.8 Other ascites (principal); K75.81 Nonalcoholic steatohepatitis (NASH)
CPT/HCPCS: 49083; J7050; P9047

== ENCOUNTER 2024-04-14 21:04 | Emergency (ER) | payer SELFPAY ==
[2024-04-14 21:05] VITALS: BP 94/60; PULSE 90; RESP 16; TEMP 36.6; O2SAT 98
[2024-04-14 21:07] VITALS: BP 98/51; PULSE 87; RESP 23; TEMP 36.8; O2SAT 98; BMI 27.7
[2024-04-14 22:07] VITALS: BP 113/63; PULSE 84; RESP 14; TEMP 36.1; O2SAT 97
[2024-04-14 22:22] VITALS: BP 113/63; PULSE 84; RESP 24; O2SAT 98
[2024-04-14 22:28] LABS: Absolute Lymphocyte Count 0.99 X10^3/uL (0.83-4.51); Basophil# 0.02 X10^3/uL; Basophil% 0.3 % (0-1); Eosinophil# 0.17 X10^3/uL; Eosinophils% 2.8 % (0-5); Hematocrit 34.4 % (37-47); Hemoglobin 11.1 g/dL (12.0-15.0); Lymphocyte # 0.99 X10^3/ul (0.83-4.51); Lymphocyte % 16.1 % (19-41); Mean Corp Hgb Conc 32.3 g/dL (32-36); Mean Corpuscular Hgb 30.8 pg (27.0-32.0); Mean Corpuscular Volume 95.6 fL (81-99); Mean Platelet Vol. 9.3 fl (6.2-12.0); Monocyte# 0.93 X10^3/uL; Monocyte% 15.1 % (0-10); NRBC Flagged by Analyzer 0 % (0-5); Neutrophil % 64.9 % (47-70); POSITIVE MORPHOLOGY YES; Platelet Count 119 K/mm3 (150-450); RBC Distribution Width SD 49.6 fl (35.1-43.9); White Blood Count 6.2 K/mm3 (4.4-11.0)
[2024-04-14 22:29] LABS: Differential Indicated SCAN CRITERIA MET
--- NOTE | 2024-04-14 22:31 | CT_ITS ---
STUDY: CT ABDOMEN AND PELVIS WITH CONTRAST - URINARY TRACT REASON FOR EXAM: Female, 64 years old. abd pain / ? incarerated ventral hernia RADIATION DOSAGE (If Supplied By Facility): CTDIvol = ( 16.72 ) mGy, DLP = ( 1113.45 ) mGycm TECHNIQUE: IV 100mL Isovue-370 was administered. Transaxial images were obtained from the dome of the diaphragm to the symphysis pubis in the arterial, nephrographic and excretory phases. Multiplanar coronal and sagittal images were reformatted. The protocol utilizes one or more of the following dose reduction techniques: automated exposure control, adjustment of mA and/or kV according to patient size,and/or use of iterative reconstruction technique. COMPARISON: CT Abdomen/PelvisFeb 2022 11:49am FINDINGS: There is volume loss in the right hemithorax with the multiple cystic changes in the right lower lobe and the calcified pleural plaques. This is essentially unchanged. The visualized portions of the heart are within normal limits. There is a diffuse contour abnormality of the liver consistent with cirrhotic changes. There is mild splenomegaly. Normal pancreas. Normal bilateral adrenal glands. Normal right kidney. Normal left kidney. There is gastric wall thickening most likely due to portal hypertension. Normal small intestine. There are multiple colonic diverticula consistent with diverticulosis. The appendix is visualized and appears normal. Normal abdominal aorta. Normal inferior vena cava. Normal retroperitoneum. Normal urinary bladder. Diffuse ascites. Midline ventral hernia measures 12.2 cm containing omental fat and the ascitic fluid. Diffuse skin thickening and increased markings in the subcutaneous fat of the abdominal wall. Normal osseous structures. CT/Abdomen/Pelvis W IV Cont ONLY IMPRESSION: Liver cirrhosis with large ascites. Electronically Signed: Moses Pettit MD at 0:59 EDT ,
[2024-04-14 22:33] LABS: Color, Urine Amber (Yellow); Glucose, Dipstick Normal (Normal); Ketone-Dipstick 5 mg/dl (Negative); Leukocyte Esterase-Dipstick 100 /ul (Negative); Nitrite-Dipstick Negative (Negative); Occult Blood-Urine 10 /ul (Negative); Protein-Dipstick 30 mg/dl (Negative); Specific Gravity, Urine 1.015 (1.002-1.030); Urine Clarity Clear (Clear); Urine Urobilinogen 4 mg/dl (Normal); Urine pH 6.5 (5.0 - 8.0)
[2024-04-14 22:49] LABS: ALB/GLOB Ratio 0.8 RATIO (0.9-2.4); AST(SGOT) 36 U/L (15-37); Alanine Aminotransfer ALT/SGPT 28 U/L (13-56); Albumin, Serum 2.8 g/dL (3.2-5.0); Alkaline Phosphatase 167 U/L (45-117); Anion Gap 4 (5-15); BUN 21 mg/dL (7-18); BUN/Creat Ratio 24.4 RATIO (10-20); Calcium,Total 7.6 mg/dL (8.5-10.1); Chloride 100 mmol/L (98-107); Creatinine, Serum 0.86 mg/dL (0.55-1.02); EST Glomerular Filtration Rate 71 mL/min (>60); Est Glom Filt Rate - Afr Amer 86 mL/min (>60); Estimated Creatinine Clearance 66.54 ml/min; Globulin 3.5 g/dL (2.2-4.2); Glucose 115 mg/dL (74-106); Potassium 3.8 mmol/L (3.5-5.1); Protein, Total 6.3 g/dL (6.4-8.2); Sodium Level 134 mmol/L (136-145)
[2024-04-14] MEDS: Morphine 4 MG/ML Syringe IV (22:53)
[2024-04-14] MEDS: 0.9% Normal Saline (500mL Bag) 500 ML 999 ML IV (22:53)
[2024-04-14] MEDS: Ondansetron 4 MG/2 ML Vial IV (22:53)
[2024-04-14 23:00] VITALS: BP 112/67; PULSE 79; RESP 18; TEMP 36.6; O2SAT 97
[2024-04-14 23:02] LABS: Differential Comment SCANNED
[2024-04-14 23:07] LABS: Urine Bilirubin Dipstick 1 mg/dL (Negative)
[2024-04-14 23:08] LABS: Bacteria 1+ /hpf (None Seen); Mucous, Urine 1+ /hpf (<or=2+); Red Blood Cells-Urine 0-5 SEEN /hpf (0-5); Squamous Epithelial Cells - UA 0-5 SEEN /hpf (5-10); White Blood Cells 0-5 SEEN /hpf (0-5)
[2024-04-14 23:25] LABS: Lipase 42 U/L (13-75)
[2024-04-14 23:39] LABS: Lactic Acid 1.3 mmol/L (0.4-1.9)
[2024-04-14 23:58] VITALS: BP 98/49; PULSE 86; RESP 19; O2SAT 95
[2024-04-15 01:00] VITALS: BP 95/64; PULSE 76; RESP 16; TEMP 35.7; O2SAT 97
--- NOTE | 2024-04-15 01:08 | EDS_ITS ---
HPI History of Present Illness Chief Complaint: Abd Pain Informant: patient and family Narrative Narrative: Patient is a 64-year-old female with past medical history of liver cirrhosis and ascites. She has a known ventral hernia. She states that over the last few days she has had increasing midline abdominal pain. She states there is a mass at the area. She denies any trauma or excessive activity. She states that she has been taking her home medications as directed by her doctor and trying [id number] pain medication but there is been no symptom improvement. Secondary to this she comes in for evaluation [facility] Medical History (Updated 04/19/24 @ 07:[address] Travon Jama, DO) Uses wheelchair Non-smoker Tuberculosis Wears glasses Walker as ambulation aid Jaundice Difficulty swallowing Nausea S/P abdominal paracentesis Loss of consciousness Chronic cough On home oxygen therapy Shortness of breath on exertion Chronic anemia Peripheral edema Abdominal ascites Emphysema lung Hypoxia Lung bullae Lactic acidosis Appendicitis Cholecystitis Bronchitis Home Medications ?Medication ?Instructions ?Recorded ?Last Taken ?Type albuterol sulfate 90 mcg/actuation 2 puff inhalation Q4H PRN 01/06/22 Unknown History aerosol inhaler WHEEZING, SOB spironolactone 25 mg tablet 50 mg (2 x 25 mg) PO DAILY #180 04/26/22 Unknown Rx tabs lactulose 20 gram/30 mL oral 20 g (30 mL) PO BID #3,000 mL 07/24/22 Unknown Rx solution pantoprazole 40 mg tablet,delayed 40 mg PO DAILY #30 tabs 07/24/22 Unknown Rx release ondansetron 4 mg oral soluble film 4 mg PO Q12H PRN Nausea 10/05/22 Unknown History rifampin 600 mg OTHER BID 10/05/22 Unknown History lidocaine HCl 2 % mucosal solution 1 applic mucous membrane TID PRN 11/06/22 Unknown Rx (Lidocaine Viscous) pain #600 mL ondansetron 4 mg disintegrating 4 mg PO Q8H PRN PRN Nausea #10 tabs 04/18/23 Unknown Rx tablet oxycodone 5 mg capsule 5 mg PO Q6H PRN PRN pain 3 days 04/15/24 Unknown Rx #12 caps ciprofloxacin HCl 500 mg tablet 500 mg PO BID 04/17/24 Unknown History furosemide 40 mg tablet (Lasix) 80 mg PO DAILY 04/17/24 Unknown History metronidazole 500 mg tablet 500 mg PO TID 04/17/24 Unknown History midodrine 5 mg tablet 5 mg PO TID 04/17/24 Unknown History spironolactone 100 mg tablet 300 mg PO DAILY 04/17/24 Unknown History torsemide 20 mg tablet mg PO UD 04/17/24 Unknown History Allergy/AdvReac Type Severity Reaction Status Date / Time No Known Allergies Allergy Verified 04/17/24 11:46 Surgical History S/P laparoscopic cholecystectomy Social History Smoking Status: Never smoker alcohol intake: never substance use type: does not use ROS ROS ED Constitutional Constitutional ED: Denies chills or fever(s) ENT ENT ED: Denies sore throat Cardiovascular Cardiovascular: Denies chest pain Respiratory/Chest Respiratory/Chest: Denies cough or dyspnea Gastrointestinal Gastrointestinal: Reports abdominal pain; Denies diarrhea, nausea or vomiting Genitourinary Genitourinary ED: Denies dysuria Musculoskeletal Musculoskeletal: Reports other Details: Positive leg swelling ; Denies back pain Integumentary Denies rash Neurologic Neurologic: Denies headache(s) Hematologic/Lymphatic Hematologic/Lymphatic: Reports easy bleeding and easy bruising EXAM Physical Exam Const Vital Signs: 04/14/24 21:05 04/14/24 21:07 04/14/24 22:07 Temperature 97.8 F 98.2 F 97 F L Temperature Source Temporal Oral Temporal Pulse Rate 90 87 84 Respiratory Rate 16 23 H 14 Blood Pressure 94/60 98/51 L 113/63 Blood Pressure Mean 71 66 79 Pulse Ox 98 98 97 Oxygen Delivery Method Room Air Room Air Room Air 04/14/24 22:22 04/14/24 23:00 04/14/24 23:58 Temperature 97.8 F Temperature Source Oral Pulse Rate 84 79 86 Respiratory Rate 24 H 18 19 H Blood Pressure 113/63 112/67 98/49 L Blood Pressure Mean 79 82 65 Pulse Ox 98 97 95 Oxygen Delivery Method Room Air Room Air Room Air Positive well nourished and well developed General Appearance ED: well developed; Negative for pallor HEENT HEENT Narrative: Normocephalic atraumatic Eyes PERRL and EOMs intact bilaterally Eyes Narrative: Positive scleral icterus consistent with history of cirrhosis General Eye ED: Yes scleral icterus Neck supple and no JVD Resp normal respiratory effort and clear to auscultation bilaterally Resp Narrative: Breath sounds are diminished throughout but overall clear to auscultation without signs of respiratory distress Cardio regular rate and regular rhythm GI GI Narrative: Abdomen is soft and distended with normal active bowel sounds. There is a fluid wave present consistent with her history of cirrhosis and ascites. There is a reducible ventral hernia noted. However just cephalad to this is a firm mass concerning for incarcerated hernia. There is tenderness to palpation at the site. No overlying erythema or warmth to suggest infection and no abrasions or ecchymosis to suggest trauma. Auscultation: normoactive bowel sounds Palpation: soft Extremity Extremity Narrative: +1-2 pitting edema to the bilateral lower extremities that is equal and symmetric and consistent with history of cirrhosis with ascites Neuro oriented x3 and CN's II-XII intact bilaterally Sensorium / Orientation: alert Psych mental status grossly normal Skin no rashes or lesions noted Skin Narrative: Diffuse jaundice is noted consistent with history of cirrhosis General Skin Exam: jaundice; Negative for pallor MDM MDM MDM Narrative Medical decision making narrative: Patient presented to the ER with stable vitals and had midepigastric abdominal pain. On physical exam there is a hard lesion just cephalad to the ventral hernia and there is concern that this is an incarcerated hernia. With concern that this could lead to small bowel obstruction or necrosis basic blood work was obtained as well as a CT scan. Labs revealed no clinically significant findings and CAT scan showed cirrhosis with large volume ascites and there is herniation consistent with her physical exam. However the herniation is not of intestine but of omentum. Based on the fact the CAT scan confirms there is no intestine incarcerated there is no concern for perforation CT scan also confirms no sign of bowel obstruction. Therefore there is no need for workup in the hospital as incarcerated omentum does not require hospitalization and she will be put discharged home with pain medication. History & Record Review Discussion w/independent historian: Patient and Family Lab Data Attestation: I reviewed the patient's lab results. Labs: Laboratory Results - last 24 hr 04/14/24 04/14/24 04/14/24 21:54 22:20 22:48 WBC 6.2 RBC 3.60 L Hgb 11.1 L Hct 34.4 L MCV 95.6 MCH 30.8 MCHC 32.3 RDW Std Deviation 49.6 H RDW Coeff of Blas 14.0 Plt Count 119 L MPV 9.3 Immature Gran % (Auto) 0.800 Neut % (Auto) 64.9 Lymph % (Auto) 16.1 L Kinney % (Auto) 15.1 H Eos % (Auto) 2.8 Baso % (Auto) 0.3 Absolute Neuts (auto) 4.0 Absolute Lymphs (auto) 0.99 Nucleated RBC % 0 Differential Comment SCANNED Sodium 134 L Potassium 3.8 Chloride 100 Carbon Dioxide 30.0 Anion Gap 4 L BUN 21 H Creatinine 0.86 Estim Creat Clear Calc 66.54 Est GFR (MDRD) Af Amer 86 Est GFR (MDRD) Non-Af 71 BUN/Creatinine Ratio 24.4 H Glucose 115 H Lactic Acid 1.3 Calcium 7.6 L Total Bilirubin 2.40 H AST 36 ALT 28 Alkaline Phosphatase 167 H Total Protein 6.3 L Albumin 2.8 L Globulin 3.5 Albumin/Globulin Ratio 0.8 L Lipase 42 Urine Color Nicolle Urine Clarity Clear Urine pH 6.5 Ur Specific Conrad 1.015 Urine Protein 30 H Urine Glucose (UA) Normal Urine Ketones 5 H Urine Occult Blood 10 H Urine Nitrite Negative Urine Bilirubin 1 H Urine Urobilinogen 4 H Ur Leukocyte Esterase 100 H Urine RBC 0-5 SEEN Urine WBC 0-5 SEEN Ur Squamous Epith Cells 0-5 SEEN Urine Bacteria 1+ Urine Mucus 1+ Radiography Diagnostic Testing: Clinical Impression(s) from Imaging Studies Abdomen/Pelvis CT 04/14/24 22:31 IMPRESSION: Liver cirrhosis with large ascites. Electronically Signed: Moses Pettit MD at 0:59 EDT , Discharge Plan Triage Chief Complaint: Abd Pain ED Provider: Travon Jama Dx/Rx/DC Orders Clinical Impression: Ventral hernia, Abdominal ascites, Liver cirrhosis Instructions: ED Ascites, ED Hernia (Adult) Prescriptions: New oxycodone 5 mg capsule 5 mg PO Q6H PRN PRN (Reason: pain) 3 Days Qty: 12 0RF No Action albuterol sulfate 90 mcg/actuation HFA aerosol inhaler 2 puff inhalation Q4H PRN (Reason: WHEEZING, SOB) Patient Comments: INHALE 2 PUFFS BY MOUTH EVERY 4 HOURS NEEDED spironolactone 25 mg tablet 50 mg PO DAILY Qty: 180 1RF pantoprazole 40 mg tablet,delayed release (DR/EC) 40 mg PO DAILY Qty: 30 5RF lactulose 20 gram/30 mL solution 20 g PO BID Qty: 3000 5RF rifampin 600 mg OTHER BID ondansetron 4 mg Film 4 mg PO Q12H PRN (Reason: Nausea) ondansetron [ondansetron] 4 mg tablet,disintegrating 4 mg PO Q8H PRN PRN (Reason: Nausea) Qty: 10 0RF torsemide 20 mg tablet PO UD spironolactone 100 mg tablet 300 mg PO DAILY metronidazole 500 mg tablet 500 mg PO TID ciprofloxacin HCl 500 mg tablet 500 mg PO BID midodrine 5 mg tablet 5 mg PO TID Rx Instructions: do not give last dose of day after 6PM or within 4 hrs of bedtime furosemide [Lasix] 40 mg tablet 80 mg PO DAILY lidocaine HCl [Lidocaine Viscous] 2 % solution 1 applic mucous membrane TID PRN (Reason: pain) Qty: 600 0RF Primary Care Provider: Darlene Garibay Referrals: Darlene Garibay MD [Primary Care Provider] - Activity Restrictions/Additional Instructions: Your CT scan showed that you have omental fat protruding through your hernia and this is causing the mass and pain that you feel in your upper abdomen. Follow- up with your family doctor to discuss potential specialist referral and return to the ER should you have any further concerns Print Language: Sammarinese Disposition Disposition: Home, Self Care Discharge Date/Time: 04/15/24 01:17
[2024-04-15 01:11] VITALS: BP 95/64; PULSE 76; RESP 16; TEMP 35.7; O2SAT 97
[2024-04-15] MEDS: oxyCODONE 5 MG Tablet PO (01:15)
== END 2024-04-15 01:17 | disposition home or self-care (01) ==
PROVIDERS: Emergency Provider Emergency Medicine; PCP Family Medicine; Visit Provider Emergency Medicine
DX: K43.9 Ventral hernia without obstruction or gangrene (principal); K74.60 Unspecified cirrhosis of liver; J43.9 Emphysema, unspecified; R18.8 Other ascites; Z99.81 Dependence on supplemental oxygen; Z79.899 Other long term (current) drug therapy
CPT/HCPCS: 74177; 80053; 81001; 83605; 83690; 85025; 96361; 96374; 96375; 99284; J7030; Q9967; A4216; J2405

== ENCOUNTER → 2024-04-17 | Outpatient (CLI) | payer SELFPAY ==
[2024-04-17] MEDS: Lidocaine 2% (20 ml mdv) 20 ML Vial INFILT (10:57)
[2024-04-17] MEDS: 0.9% NaCl Peripheral Flush Adult/Peds IV ×2 (11:25→12:00)
[2024-04-17 11:35] VITALS: BP 85/52; PULSE 80; RESP 16; TEMP 36.6; O2SAT 98
[2024-04-17] MEDS: Albumin Human 25% (100 mL) 25 GM/100 ML BAG IV (12:00)
[2024-04-17 12:32] VITALS: BP 87/45; PULSE 88; RESP 18; TEMP 37.1; O2SAT 99
[2024-04-17 12:33] VITALS: BP 96/51; PULSE 91; RESP 18; O2SAT 98
[2024-04-17 12:34] VITALS: BP 88/49; PULSE 83; RESP 18; O2SAT 97
--- NOTE | 2024-04-17 13:19 | PCM.OP.PRO ---
Procedure Report Date of Procedure: 04/17/24 Assessment & Plan Assessment/Plan (1) Abdominal ascites: QUALIFIERS: Ascites type: other type Qualified Code(s): R18.8 - Other ascites PLAN: PROCEDURE: Ultrasound guided paracentesis ORDERING PROVIDER: Dr. Estrada INDICATION: Female, 64 years old. Abdominal ascites. PROVIDER: VANCE Painting TECHNIQUE: The risks, benefits, and alternatives to the procedure were explained to the patient. The specific risks of bleeding, infection, and damage to bowel were detailed and accepted. Witnessed informed consent was obtained. The abdomen was ultrasonographically surveyed. An appropriate pocket of fluid was identified in the left lower quadrant. The skin was prepped with chlorhexidine and sterile field established. 2% lidocaine was used for local anesthetic. Using ultrasound guidance, the peritoneal cavity was accessed with a 5-Lithuanian paracentesis needle/catheter system. The trocar was removed. A total of 5300 ml of clear yellow colored fluid was removed from the peritoneal cavity. The catheter was removed and a sterile dressing was applied. The procedure was well tolerated. IMPRESSION: Successful ultrasound-guided paracentesis with left lower quadrant access site. Procedures Radiology Radiology US Procedures: [id number] Paracentesis
[2024-04-17] MEDS: Albumin Human 25% (50 mL) 12.5 GM/50 ML IV.SOLN IV (13:28)
[2024-04-17 14:27] VITALS: BP 84/50; PULSE 78; RESP 16
--- NOTE | 2024-04-18 16:12 | CASEMGMT ---
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 This RN CM noted pt to be Yi speaking. Call placed to pt's phone number and her Lithuanian speaking daughter who transports and accompanies pt to her procedure appointments answered the pt's phone. Attempted to confirm daughter's name but she repeated she is Madhavi's daughter. Per daughter, pt has been attending weekly paracentesis appointments where they remove 6-8L of fluid each drainage. Pt tolerates this well but does feel tight at the beginning of the week prior to her appointments. States pt has been following up with Dr. Estrada and also had been seeing a specialist at [facility] every 2-3 months. A TIPS procedure was attempted but pt was unable to have this completed due to her vasculature (confirmed in documentation scanned in from [facility]). Pt has been referred to [facility] for a second attempt for a TIPS. Pt's daughter states they have an appointment on May 15 for this evaluation. Pt's daughter states pt is eating but her appetite is poor and often requires encouragement to eat. States pt is independent with ADLs. Daughter assists pt with medications which pt is taking. Discussed concern with pt being late to appointments and the impact of this lateness on other patients. Explained that late arrival may require the procedure to be rescheduled to a later date or time and the concern for pt's discomfort if the procedure was delayed due to this reason. Pt's daughter expressed understanding and states she has difficulty waking pt up and getting her to the appointment on time. Daughter denies any other factors impacting their arrival time. Also states pt is alert and appropriate and otherwise has normal mentation without concern for confusion or lethargy. Discussed pt is self-pay status and when previously discussed pt was pursuing green card/citizenship. States this is still in process and it is unknown when it will be completed. Daughter denies any financial concerns. Daughter denies any concerns or needs at this time. Feels they are managing pt's health needs and are not in need of any additional assistance or support. Will continue to monitor for increased needs as pt's condition progresses/warrants and assist as indicated. Abigail Velazquez RN AC
== END | disposition home or self-care (01) ==
LOC: US 10:42
PROVIDERS: PCP Family Medicine; Referring Provider Internal Medicine Gastroenterology; Visit Provider Internal Medicine Gastroenterology
DX: K75.81 Nonalcoholic steatohepatitis (NASH) (principal)
CPT/HCPCS: 96365; 96366; 49083; J7050; P9047; A4216

== ENCOUNTER → 2024-04-24 | Outpatient (CLI) | payer SELFPAY ==
[2024-04-24 11:00] VITALS: BP 100/51; PULSE 90; RESP 18; TEMP 36.6; O2SAT 99
[2024-04-24 11:07] VITALS: BP 85/54; PULSE 107; RESP 18; O2SAT 100
[2024-04-24] MEDS: Lidocaine 2% (20 ml mdv) 20 ML Vial INFILT (11:07)
[2024-04-24 11:15] VITALS: BP 93/73; PULSE 106; RESP 18; O2SAT 97
[2024-04-24 11:25] VITALS: BP 94/52; PULSE 100; RESP 18; O2SAT 100
--- NOTE | 2024-04-24 11:28 | PCM.OP.PRO ---
Procedure Report Date of Procedure: 04/24/24 Assessment & Plan Assessment/Plan (1) Abdominal ascites: QUALIFIERS: Ascites type: other type Qualified Code(s): R18.8 - Other ascites PLAN: PROCEDURE: Ultrasound guided paracentesis ORDERING PROVIDER: Dr. Estrada INDICATION: Female, 64 years old. Abdominal ascites. PROVIDER: VANCE Painting TECHNIQUE: The risks, benefits, and alternatives to the procedure were explained to the patient. The specific risks of bleeding, infection, and damage to bowel were detailed and accepted. Witnessed informed consent was obtained. The abdomen was ultrasonographically surveyed. An appropriate pocket of fluid was identified in the right lower quadrant. The skin was prepped with chlorhexidine and sterile field established. 2% lidocaine was used for local anesthetic. Using ultrasound guidance, the peritoneal cavity was accessed with a 5-Turkish paracentesis needle/catheter system. The trocar was removed. A total of 4950 ml of clear yellow colored fluid was removed from the peritoneal cavity. The catheter was removed and a sterile dressing was applied. The procedure was well tolerated. IMPRESSION: Successful ultrasound-guided paracentesis with right lower quadrant access site. Procedures Radiology Radiology US Procedures: [id number] Paracentesis
== END | disposition home or self-care (01) ==
PROVIDERS: PCP Family Medicine; Referring Provider Internal Medicine Gastroenterology; Visit Provider Internal Medicine Gastroenterology
DX: R18.8 Other ascites (principal)
CPT/HCPCS: 49083

== ENCOUNTER → 2024-04-30 | Outpatient (CLI) | payer SELFPAY ==
[2024-04-30 10:40] VITALS: BP 94/56; PULSE 86; RESP 16; TEMP 36.2; O2SAT 99
[2024-04-30] MEDS: Lidocaine 2% (20 ml mdv) 20 ML Vial INFILT (10:45)
[2024-04-30 10:55] VITALS: BP 97/40; PULSE 84; RESP 16; O2SAT 98
[2024-04-30 11:10] VITALS: BP 85/50; PULSE 81; RESP 16; O2SAT 98
[2024-04-30 11:18] VITALS: BP 83/43; PULSE 79; RESP 16; O2SAT 99
[2024-04-30 11:34] VITALS: BP 82/51; PULSE 83; RESP 16; TEMP 36.1; O2SAT 100
[2024-04-30] MEDS: Albumin Human 25% (100 mL) 25 GM/100 ML BAG IV ×2 (11:56→13:21)
[2024-04-30] MEDS: 0.9% NaCl Peripheral Flush Adult/Peds IV (11:56)
--- NOTE | 2024-04-30 12:28 | PCM.OP.PRO ---
Procedure Report Date of Procedure: 04/30/24 Assessment & Plan Assessment/Plan (1) Abdominal ascites: QUALIFIERS: Ascites type: other type Qualified Code(s): R18.8 - Other ascites PLAN: PROCEDURE: Ultrasound guided paracentesis ORDERING PROVIDER: Dr. Estrada INDICATION: Female, 64 years old. Abdominal ascites. PROVIDER: VANCE Painting TECHNIQUE: The risks, benefits, and alternatives to the procedure were explained to the patient and daughter. The specific risks of bleeding, infection, and damage to bowel were detailed and accepted. Witnessed informed consent was obtained. The abdomen was ultrasonographically surveyed. An appropriate pocket of fluid was identified in the left upper quadrant. The skin was prepped with chlorhexidine and sterile field established. 2% lidocaine was used for local anesthetic. Using ultrasound guidance, the peritoneal cavity was accessed with a 5-Uzbek paracentesis needle/catheter system. The trocar was removed. A total of 8050 ml of clear yellow colored fluid was removed from the peritoneal cavity. The catheter was removed and a sterile dressing was applied. The procedure was well tolerated. IMPRESSION: Successful ultrasound-guided paracentesis with left upper quadrant access site. Procedures Radiology Radiology US Procedures: [id number] Paracentesis
[2024-04-30 15:21] VITALS: BP 80/44; PULSE 74; RESP 16; TEMP 36.4; O2SAT 100
== END | disposition home or self-care (01) ==
LOC: US 10:26
PROVIDERS: PCP Family Medicine; Referring Provider Internal Medicine Gastroenterology; Visit Provider Internal Medicine Gastroenterology
DX: R18.8 Other ascites (principal)
CPT/HCPCS: 49083; P9047

== ENCOUNTER → 2024-05-13 | Outpatient (CLI) | payer SELFPAY ==
[2024-05-13] VITALS (7 sets, daily range): BP systolic 84–103; BP diastolic 42–62; PULSE 84–101; RESP 16; TEMP 36.9; O2SAT 95–99
--- NOTE | 2024-05-13 10:17 | US_ITS ---
PROCEDURE: Ultrasound guided paracentesis. DATE OF EXAMINATION: May 13, 2024.. INDICATION: Female, 64 years old. Ascites. PHYSICIAN: Valeriano Hull M.D. TECHNIQUE: The risks, benefits, and alternatives to the procedure were explained to the patient. The specific risks of bleeding, infection, and damage to bowel were detailed and accepted. Witnessed informed consent was obtained. The abdomen was ultrasonographically surveyed. An appropriate pocket of fluid was identified at the right lower quadrant. The skin were cleaned and prepped in the usual sterile fashion. Using ultrasound guidance, the peritoneal cavity was accessed with a 5-Lithuanian paracentesis needle/catheter system. The trocar was removed. A total of 8250 ml of willis-colored fluid were removed from the peritoneal cavity. The catheter was removed and a sterile dressing was applied. The procedure was well tolerated. US/Paracentesis with US IMPRESSION: Ultrasound guided paracentesis. Electronically Signed: Valeriano Hull MD at 12:14 EDT ,
[2024-05-13] MEDS: Albumin Human 25% (100 mL) 25 GM/100 ML BAG IV ×2 (11:45→13:08)
--- NOTE | 2024-05-16 14:30 | CASEMGMT ---
[facility] Care Coordination note: RN MARIANA placed call to pt's daughter, Fara, to inquire if they were able to obtain a W/C for her mother and to provide assistance with this if one has not been obtained yet. No answer. VM left for her to return call to CM manager enrollment, Jeanne, as this RN MARIANA is leaving for the day. Jeanne's phone # provided. Karyna DIAZ RN, CM
== END | disposition home or self-care (01) ==
LOC: US 10:16
PROVIDERS: PCP Family Medicine; Referring Provider Internal Medicine Gastroenterology; Visit Provider Internal Medicine Gastroenterology
DX: R18.8 Other ascites (principal)
CPT/HCPCS: 96365; 96366; 49083; J7050; P9047

== ENCOUNTER → 2024-05-20 | Outpatient (CLI) | payer SELFPAY ==
[2024-05-20 10:32] VITALS: BP 92/49; PULSE 86; RESP 16; O2SAT 97
[2024-05-20] MEDS: Lidocaine 2% (20 ml mdv) 20 ML Vial INFILT (10:36)
[2024-05-20 10:47] VITALS: BP 105/85; PULSE 85; RESP 16; O2SAT 98
[2024-05-20 10:59] VITALS: BP 82/43; PULSE 83; RESP 16; O2SAT 100
[2024-05-20 11:02] VITALS: BP 88/44
--- NOTE | 2024-05-20 14:13 | PCM.OP.PRO ---
Procedure Report Date of Procedure: 05/20/24 Assessment & Plan Assessment/Plan (1) Abdominal ascites: QUALIFIERS: Ascites type: other type Qualified Code(s): R18.8 - Other ascites PLAN: PROCEDURE: Ultrasound guided paracentesis ORDERING PROVIDER: Dr. Estrada INDICATION: Female, 64 years old. Abdominal ascites. PROVIDER: VANCE aPinting TECHNIQUE: The risks, benefits, and alternatives to the procedure were explained to the patient and daughter. The specific risks of bleeding, infection, and damage to bowel were detailed and accepted. Witnessed informed consent was obtained. The abdomen was ultrasonographically surveyed. An appropriate pocket of fluid was identified in the right lower quadrant. The skin was prepped with chlorhexidine and sterile field established. 2% lidocaine was used for local anesthetic. Using ultrasound guidance, the peritoneal cavity was accessed with a 5-Syriac paracentesis needle/catheter system. The trocar was removed. A total of 4900 ml of clear yellow colored fluid was removed from the peritoneal cavity. The catheter was removed and a sterile dressing was applied. The procedure was well tolerated. IMPRESSION: Successful ultrasound-guided paracentesis with right lower quadrant access site. Procedures Radiology Radiology US Procedures: [id number] Paracentesis
== END | disposition home or self-care (01) ==
PROVIDERS: PCP Family Medicine; Referring Provider Internal Medicine Gastroenterology; Visit Provider Internal Medicine Gastroenterology
DX: R18.8 Other ascites (principal)
CPT/HCPCS: 49083

== ENCOUNTER → 2024-05-27 | Outpatient (CLI) | payer SELFPAY ==
--- NOTE | 2024-05-27 10:19 | US_ITS ---
PROCEDURE: Ultrasound guided paracentesis. DATE OF EXAMINATION: May 27, 2024.. INDICATION: Female, 64 years old. Ascites. PHYSICIAN: Valeriano Hull M.D. TECHNIQUE: The risks, benefits, and alternatives to the procedure were explained to the patient. The specific risks of bleeding, infection, and damage to bowel were detailed and accepted. Witnessed informed consent was obtained. The abdomen was ultrasonographically surveyed. An appropriate pocket of fluid was identified at the left lower quadrant. The skin were cleaned and prepped in the usual sterile fashion. Using ultrasound guidance, the peritoneal cavity was accessed with a 5-Sami paracentesis needle/catheter system. The trocar was removed. A total of 5000 ml of willis-colored fluid were removed from the peritoneal cavity. The catheter was removed and a sterile dressing was applied. The procedure was well tolerated. US/Paracentesis with US IMPRESSION: Ultrasound guided paracentesis. Electronically Signed: Valeriano Hull MD at 12:39 EDT ,
[2024-05-27 10:31] VITALS: BP 97/63; PULSE 91; RESP 18; TEMP 36.8; O2SAT 98
[2024-05-27] MEDS: Lidocaine 2% (20 ml mdv) 20 ML Vial INFILT (10:38)
[2024-05-27 10:40] VITALS: BP 94/65; PULSE 88; RESP 18; O2SAT 96
[2024-05-27 10:45] VITALS: BP 97/62; PULSE 93; RESP 18; O2SAT 96
[2024-05-27 11:00] VITALS: BP 92/63; PULSE 95; RESP 18; O2SAT 100
[2024-05-27] MEDS: 0.9% NaCl Peripheral Flush Adult/Peds IV ×2 (11:05→11:32)
[2024-05-27] MEDS: Albumin Human 25% (100 mL) 25 GM/100 ML BAG IV (11:32)
[2024-05-27 11:37] VITALS: BMI 24.9
[2024-05-27 13:13] VITALS: BP 93/48; PULSE 81; RESP 16; TEMP 36.4; O2SAT 100
== END | disposition home or self-care (01) ==
LOC: US 10:19
PROVIDERS: PCP Family Medicine; Referring Provider Internal Medicine Gastroenterology; Visit Provider Internal Medicine Gastroenterology
DX: R18.8 Other ascites (principal); K75.81 Nonalcoholic steatohepatitis (NASH)
CPT/HCPCS: 96365; 96366; 49083; J7050; P9047

== ENCOUNTER → 2024-06-05 | Outpatient (CLI) | payer SELFPAY ==
[2024-06-05 09:20] VITALS: BP 90/49; PULSE 93; RESP 18; TEMP 37; O2SAT 100
[2024-06-05] MEDS: Lidocaine 2% (20 ml mdv) 20 ML Vial INFILT (09:27)
[2024-06-05 09:28] VITALS: BP 92/55; PULSE 81; RESP 18; O2SAT 98
[2024-06-05 09:42] VITALS: BP 94/53; PULSE 87; RESP 18; TEMP 36.8; O2SAT 99
--- NOTE | 2024-06-05 11:34 | PCM.OP.PRO ---
Procedure Report Date of Procedure: 06/05/24 Assessment & Plan Assessment/Plan (1) Abdominal ascites: QUALIFIERS: Ascites type: other type Qualified Code(s): R18.8 - Other ascites PLAN: PROCEDURE: Ultrasound guided paracentesis ORDERING PROVIDER: Dr. Estrada INDICATION: Female, 64 years old. Ascites. PROVIDER: VANCE Painting TECHNIQUE: The risks, benefits, and alternatives to the procedure were explained to the patient and daughter. The specific risks of bleeding, infection, and damage to bowel were detailed and accepted. Witnessed informed consent was obtained. The abdomen was ultrasonographically surveyed. An appropriate pocket of fluid was identified in the right lower quadrant. The skin was prepped with chlorhexidine and sterile field established. 2% lidocaine was used for local anesthetic. Using ultrasound guidance, the peritoneal cavity was accessed with a 5-Irish paracentesis needle/catheter system. The trocar was removed. A total of 3650 ml of clear yellow colored fluid was removed from the peritoneal cavity. The catheter was removed and a sterile dressing was applied. The procedure was well tolerated. IMPRESSION: Successful ultrasound-guided paracentesis with right lower quadrant access site. Procedures Radiology Radiology US Procedures: [id number] Paracentesis
== END | disposition home or self-care (01) ==
PROVIDERS: PCP Family Medicine; Referring Provider Internal Medicine Gastroenterology; Visit Provider Internal Medicine Gastroenterology
DX: R18.8 Other ascites (principal); K75.81 Nonalcoholic steatohepatitis (NASH)
CPT/HCPCS: 49083

== ENCOUNTER → 2024-06-10 | Outpatient (CLI) | payer SELFPAY ==
[2024-06-10 10:45] VITALS: BP 97/57; PULSE 108; RESP 16; O2SAT 98
[2024-06-10] MEDS: Lidocaine 2% (20 ml mdv) 20 ML Vial INFILT (10:53)
[2024-06-10 11:00] VITALS: BP 96/61; PULSE 112; RESP 16; O2SAT 97
[2024-06-10 11:08] VITALS: BP 100/56; PULSE 108; RESP 16; O2SAT 98
--- NOTE | 2024-06-10 13:48 | PRO.PCM_ITS ---
Procedure Report Date of Procedure: 06/10/24 Assessment & Plan Assessment/Plan (1) Abdominal ascites: QUALIFIERS: Ascites type: other type Qualified Code(s): R18.8 - Other ascites PLAN: PROCEDURE: Ultrasound guided paracentesis ORDERING PROVIDER: Dr. Estrada INDICATION: Female, 64 years old. Ascites. PROVIDER: VANCE Painting TECHNIQUE: The risks, benefits, and alternatives to the procedure were explained to the patient. The specific risks of bleeding, infection, and damage to bowel were detailed and accepted. Witnessed informed consent was obtained. The abdomen was ultrasonographically surveyed. An appropriate pocket of fluid was identified in the left lower quadrant. The skin was prepped with chlorhexidine and sterile field established. 2% lidocaine was used for local anesthetic. Using ultrasound guidance, the peritoneal cavity was accessed with a 5-East Timorese paracentesis needle/catheter system. The trocar was removed. A total of 3000 ml of clear yellow colored fluid was removed from the peritoneal cavity. The catheter was removed and a sterile dressing was applied. The procedure was well tolerated. IMPRESSION: Successful ultrasound-guided paracentesis with left lower quadrant access site. Procedures Radiology Radiology US Procedures: [id number] Paracentesis
== END | disposition home or self-care (01) ==
PROVIDERS: PCP Family Medicine; Referring Provider Internal Medicine Gastroenterology; Visit Provider Internal Medicine Gastroenterology
DX: R18.8 Other ascites (principal)
CPT/HCPCS: 49083

== ENCOUNTER → 2024-06-19 | Outpatient (CLI) | payer SELFPAY ==
[2024-06-19 10:42] VITALS: BP 106/60; PULSE 90; RESP 16; O2SAT 99
[2024-06-19] MEDS: Lidocaine 2% (20 ml mdv) 20 ML Vial INFILT (10:49)
[2024-06-19 10:57] VITALS: BP 99/58; PULSE 88; RESP 16; O2SAT 100
[2024-06-19 11:12] VITALS: BP 92/56; PULSE 86; RESP 16; O2SAT 99
--- NOTE | 2024-06-19 11:30 | PCM.OP.PRO ---
Procedure Report Date of Procedure: 06/19/24 Assessment & Plan Assessment/Plan (1) Abdominal ascites: QUALIFIERS: Ascites type: other type Qualified Code(s): R18.8 - Other ascites PLAN: PROCEDURE: Ultrasound guided paracentesis ORDERING PROVIDER: Dr. Estrada INDICATION: Female, 64 years old. Abdominal ascites. PROVIDER: VANCE Painting TECHNIQUE: The risks, benefits, and alternatives to the procedure were explained to the patient. The specific risks of bleeding, infection, and damage to bowel were detailed and accepted. Witnessed informed consent was obtained. The abdomen was ultrasonographically surveyed. An appropriate pocket of fluid was identified in the right lower quadrant. The skin was prepped with chlorhexidine and sterile field established. 2% lidocaine was used for local anesthetic. Using ultrasound guidance, the peritoneal cavity was accessed with a 5-Ukrainian paracentesis needle/catheter system. The trocar was removed. A total of 4400 ml of clear yellow colored fluid was removed from the peritoneal cavity. The catheter was removed and a sterile dressing was applied. The procedure was well tolerated. IMPRESSION: Successful ultrasound-guided paracentesis with right lower quadrant access site. Procedures Radiology Radiology US Procedures: [id number] Paracentesis
== END | disposition home or self-care (01) ==
PROVIDERS: PCP Family Medicine; Referring Provider Internal Medicine Gastroenterology; Visit Provider Internal Medicine Gastroenterology
DX: R18.8 Other ascites (principal); K75.81 Nonalcoholic steatohepatitis (NASH)
CPT/HCPCS: 49083

== ENCOUNTER → 2024-06-24 | Outpatient (CLI) | payer SELFPAY ==
--- NOTE | 2024-06-24 10:35 | US_ITS ---
PROCEDURE: Ultrasound guided paracentesis. DATE OF EXAMINATION: June 24, 2024.. INDICATION: Female, 64 years old. Ascites. PHYSICIAN: Valeriano Hull M.D. TECHNIQUE: The risks, benefits, and alternatives to the procedure were explained to the patient. The specific risks of bleeding, infection, and damage to bowel were detailed and accepted. Witnessed informed consent was obtained. The abdomen was ultrasonographically surveyed. An appropriate pocket of fluid was identified at the right lower quadrant. The skin were cleaned and prepped in the usual sterile fashion. Using ultrasound guidance, the peritoneal cavity was accessed with a 5-Hong Konger paracentesis needle/catheter system. The trocar was removed. A total of 3850 ml of willis-colored fluid were removed from the peritoneal cavity. The catheter was removed and a sterile dressing was applied. The procedure was well tolerated. US/Paracentesis with US IMPRESSION: Ultrasound guided paracentesis. Electronically Signed: Valeriano Hull MD at 12:05 EDT ,
[2024-06-24 10:42] VITALS: BP 99/63; PULSE 100; RESP 16; O2SAT 99
[2024-06-24] MEDS: Lidocaine 2% (20 ml mdv) 20 ML Vial INFILT (10:47)
[2024-06-24 10:57] VITALS: BP 97/54; PULSE 104; RESP 16; O2SAT 99
[2024-06-24 11:09] VITALS: BP 101/52; PULSE 97; RESP 16; O2SAT 100
== END | disposition home or self-care (01) ==
PROVIDERS: PCP Family Medicine; Referring Provider Internal Medicine Gastroenterology; Visit Provider Internal Medicine Gastroenterology
DX: R18.8 Other ascites (principal)
CPT/HCPCS: 49083

== ENCOUNTER → 2024-07-02 | Outpatient (CLI) | payer SELFPAY ==
[2024-07-02 10:25] VITALS: BP 110/63; PULSE 100; RESP 18; TEMP 36.4; O2SAT 99
[2024-07-02] MEDS: Lidocaine 2% (20 ml mdv) 20 ML Vial INFILT (10:30)
[2024-07-02 10:35] VITALS: BP 105/71; PULSE 92; RESP 16; O2SAT 99
[2024-07-02 10:45] VITALS: BP 102/64; PULSE 90; RESP 16; O2SAT 99
[2024-07-02 11:00] VITALS: BP 101/59; PULSE 91; RESP 169; O2SAT 99
[2024-07-02 11:20] VITALS: BP 133/55; PULSE 92; RESP 16; TEMP 36.6; O2SAT 100; BMI 29.8
[2024-07-02] MEDS: 0.9% NaCl Peripheral Flush Adult/Peds IV (11:27)
[2024-07-02] MEDS: Albumin Human 25% (100 mL) 25 GM/100 ML BAG IV ×2 (11:27→12:51)
--- NOTE | 2024-07-02 11:33 | PCM.OP.PRO ---
Procedure Report Date of Procedure: 07/02/24 Assessment & Plan Assessment/Plan (1) Abdominal ascites: QUALIFIERS: Ascites type: other type Qualified Code(s): R18.8 - Other ascites PLAN: PROCEDURE: Ultrasound guided paracentesis ORDERING PROVIDER: Dr. Estrada INDICATION: Female, 64 years old. Abdominal ascites. PROVIDER: VANCE Painting TECHNIQUE: The risks, benefits, and alternatives to the procedure were explained to the patient. The specific risks of bleeding, infection, and damage to bowel were detailed and accepted. Witnessed informed consent was obtained. The abdomen was ultrasonographically surveyed. An appropriate pocket of fluid was identified in the left upper quadrant. The skin was prepped with chlorhexidine and sterile field established. 2% lidocaine was used for local anesthetic. Using ultrasound guidance, the peritoneal cavity was accessed with a 5-German paracentesis needle/catheter system. The trocar was removed. A total of 8150 ml of clear yellow colored fluid was removed from the peritoneal cavity. The catheter was removed and a sterile dressing was applied. The procedure was well tolerated. IMPRESSION: Successful ultrasound guided paracentesis with left upper quadrant access site. Procedures Radiology Radiology US Procedures: [id number] Paracentesis
[2024-07-02 14:53] VITALS: BP 90/46; PULSE 80; RESP 16
== END | disposition home or self-care (01) ==
LOC: US 10:08
PROVIDERS: PCP Family Medicine; Referring Provider Internal Medicine Gastroenterology; Visit Provider Internal Medicine Gastroenterology
DX: R18.8 Other ascites (principal)
CPT/HCPCS: 49083; J7050; P9047

== ENCOUNTER 2024-07-06 13:18 | Emergency (ER) | payer SELFPAY ==
[2024-07-06 13:18] VITALS: BP 94/55; PULSE 80; RESP 20; TEMP 36.2; O2SAT 100
--- NOTE | 2024-07-06 13:51 | CT_ITS ---
STUDY: CT Abdomen And Pelvis W/ Contrast Injection 07/06/2024 3:07 PM REASON FOR EXAM: Female, 64 years old. Abdominal pain upper abd pain, hx of cirrhosis Individualized dose optimization techniques were used for this CT. COMPARISON: 04/14/2024. TECHNIQUE: CT Abdomen And Pelvis W/ Contrast Injection IV 100mL [id number] FINDINGS: There are atherosclerotic calcifications of visualized coronary arteries. Severe pulmonary emphysema with overall pleural thickening and volume loss causing rightward shift of the mediastinum. This is a stable finding. There is a diffuse contour abnormality of the liver consistent with cirrhotic changes. Significant abdominal ascites. Perisplenic varices. Mesenteric edema. Normal gallbladder and extrahepatic biliary system. Normal spleen. Normal pancreas. Normal bilateral adrenal glands. No acute findings of the right kidney. No acute findings of the left kidney. Normal visualized stomach. Normal small intestine. There are multiple colonic diverticula consistent with diverticulosis. The appendix is visualized and appears normal. There are calcifications of the abdominal aorta. This is consistent for atherosclerotic disease. There is NO abdominal aortic aneurysm. Vascular workup can be obtained based on clinical correlation. Normal inferior vena cava. Subcentimeter mesenteric lymph nodes. Normal urinary bladder. Normal visualized uterus. Ascites. Large midline lower abdominal ventral hernia containing mesenteric fluid and intra-abdominal mesenteric fat. There are diffuse degenerative changes of the visualized lumbar spine. CT/Abdomen/Pelvis W IV Cont ONLY IMPRESSION: (NOT LISTED IN ORDER OF SIGNIFICANCE) Hepatic cirrhosis. Significant ascites. Chronic changes in the right lung. Large lower abdominal and lying ventral hernia containing fluid. Other findings as above. Electronically Signed: Jt Betancourt MD at 15:11 EDT ,
--- NOTE | 2024-07-06 13:53 | EDS_ITS ---
HPI HPI - GI History of Present Illness Chief Complaint: Abd Pain Informant: patient and family Narrative Narrative: Patient is a 64-year-old female with history of liver cirrhosis secondary to [place] requiring weekly paracentesis as well as ventral hernia and varices presenting with worsening abdominal pain. She is with her children who are able to translate. They declined formal spanish tutor. Patient has had worsening nausea since yesterday. About 15 minutes prior to arrival she developed worsening upper abdominal pain. She states that radiates to her back. Is over her upper abdomen diffusely to her upper back. She has not had any vomiting. States she last had a bowel movement last night. Denies any black or blood in her stool. Tried taking Flexeril as well as Pepto-Bismol with no relief of her symptoms. Does receive weekly paracentesis and last had her's on Sunday (4 days ago). Denies any fever or chills. Denies any new swelling of her legs. Notes that she had a similar presentation about a month and a half ago and ultimately was discharged home. Is not sure what they found at that time. Follows with Dr. Estrada GI. No other complaints or concerns at this time. Does not feel like her abdomen is any more distended than normal. Is not having any pain at her hernia. Has a history of multiple abdominal surgeries including appendectomy and cholecystectomy. [facility] Medical History Uses wheelchair Non-smoker Tuberculosis Wears glasses Walker as ambulation aid Jaundice Difficulty swallowing Nausea S/P abdominal paracentesis Loss of consciousness Chronic cough On home oxygen therapy Shortness of breath on exertion Chronic anemia Peripheral edema Abdominal ascites Emphysema lung Hypoxia Lung bullae Lactic acidosis Appendicitis Cholecystitis Bronchitis Home Medications ?Medication ?Instructions ?Recorded ?Last Taken ?Type albuterol sulfate 90 mcg/actuation 2 puff inhalation Q4H PRN 01/06/22 Unknown History aerosol inhaler WHEEZING, SOB spironolactone 25 mg tablet 50 mg (2 x 25 mg) PO DAILY #180 04/26/22 Unknown Rx tabs lactulose 20 gram/30 mL oral 20 g (30 mL) PO BID #3,000 mL 07/24/22 Unknown Rx solution pantoprazole 40 mg tablet,delayed 40 mg PO DAILY #30 tabs 07/24/22 Unknown Rx release ondansetron 4 mg oral soluble film 4 mg PO Q12H PRN Nausea 10/05/22 Unknown History rifampin 600 mg OTHER BID 10/05/22 Unknown History lidocaine HCl 2 % mucosal solution 1 applic mucous membrane TID PRN 11/06/22 Unknown Rx (Lidocaine Viscous) pain #600 mL ondansetron 4 mg disintegrating 4 mg PO Q8H PRN PRN Nausea #10 tabs 04/18/23 Unknown Rx tablet oxycodone 5 mg capsule 5 mg PO Q6H PRN PRN pain 3 days 04/15/24 Unknown Rx #12 caps ciprofloxacin HCl 500 mg tablet 500 mg PO BID 04/17/24 Unknown History furosemide 40 mg tablet (Lasix) 80 mg PO DAILY 04/17/24 Unknown History metronidazole 500 mg tablet 500 mg PO TID 04/17/24 Unknown History midodrine 5 mg tablet 5 mg PO TID 04/17/24 Unknown History spironolactone 100 mg tablet 300 mg PO DAILY 04/17/24 Unknown History torsemide 20 mg tablet mg PO UD 04/17/24 Unknown History melatonin 10 mg capsule 10 mg PO HS PRN sleep #30 caps 05/23/24 Unknown Rx ondansetron 4 mg disintegrating 4 mg PO Q8H PRN PRN Nausea #10 tabs 07/06/24 Unknown Rx tablet Allergy/AdvReac Type Severity Reaction Status Date / Time No Known Allergies Allergy Verified 07/06/24 13:24 Surgical History S/P laparoscopic cholecystectomy Social History Smoking Status: Never smoker alcohol intake: never substance use type: does not use ROS ROS ED Constitutional Constitutional ED: Denies chills or fever(s) Cardiovascular Cardiovascular: Denies chest pain Respiratory/Chest Respiratory/Chest: Denies cough or dyspnea Gastrointestinal Gastrointestinal: Reports abdominal pain and nausea; Denies constipation, diarrhea, melena or vomiting Genitourinary Genitourinary ED: Denies dysuria Musculoskeletal Musculoskeletal: Reports back pain; Denies arthralgias or myalgias Integumentary Denies rash Neurologic Neurologic: Denies headache(s) EXAM Physical Exam Const Vital Signs: 07/06/24 13:18 07/06/24 15:18 07/06/24 17:00 Temperature 97.1 F L Temperature Source Temporal Pulse Rate 80 74 73 Respiratory Rate 20 H 19 H 18 Blood Pressure 94/55 L 97/59 L 94/42 L Blood Pressure Mean 68 71 59 Pulse Ox 100 100 98 Oxygen Delivery Method Room Air Room Air Positive well nourished and well developed General Appearance ED: well developed and NAD HEENT Reports moist mucous membranes normocephalic and atraumatic Eyes General Eye ED: Negative for scleral icterus Neck supple Resp normal respiratory effort and clear to auscultation bilaterally Cardio regular rate, regular rhythm and no murmurs GI GI Narrative: Mildly distended abdomen consistent with history of ascites. Umbilical hernia present which is soft and reducible. Patient points diffusely to her upper abdo men as her area of pain. No significant reproduction of pain on palpation. There is some firmness in her left upper quadrant. No rebound tenderness appreciated. Inspection: abdominal distention Palpation: Negative for guarding or rigid Extremity full ROM Extremity Narrative: Chronic appearing pitting edema of the lower extremities with chronic skin changes present. General Extremety ED: Yes edema General Extremity: edema Neuro moves all extremities Sensorium / Orientation: alert Motor Exam: general weakness Psych mental status grossly normal Skin no wounds General Skin Exam: Negative for jaundice MDM MDM MDM Narrative Medical decision making narrative: Patient evaluated for worsening nausea and upper abdominal pain. Has complex history including liver cirrhosis and multiple abdominal surgeries. Differential includes gastritis, pancreatitis, choledocholithiasis, colitis, referred cardiac pain. Lower suspicion for SBP as she is not have tenderness of the lower abdomen. She does not appear to be acutely fluid overloaded or need emergent paracentesis at this time. Will give morphine, Zofran and check labs and obtain a CT of the abdomen pelvis for further evaluation. Chart review shows the last time patient had this presentation in the ER she is found to have an omental hernia and ultimately was discharged home.This was on 04/14/2024. Patient has resolution of her symptoms with 1 dose of morphine and Zofran in the emergency room. She is here to have itching and is given a dose of Benadryl. Lab work largely unremarkable or at her baseline. She has what appears to be more of a chronic pancytopenia that again is stable. CMP shows a chronic elevation of bilirubin which is at her baseline. Her alkaline phosphatase is chronically elevated and again stable. Her liver enzymes otherwise are normal. Urinalysis is not consistent with infection. CT of the abdomen and pelvis does not show any acute process to explain her symptoms today. She has significant ascites which is known to her as well as hepatic cirrhosis. She has a large lower abdominal ventral hernia containing fluid with intra-abdominal mesenteric fat. This is soft on exam and reducible. In addition hernia with mesenteric fat does not require surgical intervention. Patient given p.o. challenge which she tolerates. Discussed that the cause of her symptoms is not clear however she will be discharged home with continued follow-up for her paracentesis and with GI. History & Record Review Additional record(s) reviewed:: Prior ED visit Lab Data Attestation: I reviewed the patient's lab results. Labs: Laboratory Results - last 24 hr 07/06/24 07/06/24 13:38 15:26 WBC 3.9 L RBC 3.33 L Hgb 11.0 L Hct 32.5 L MCV 97.6 MCH 33.0 H MCHC 33.8 RDW Std Deviation 55.3 H RDW Coeff of Blas 15.4 H Plt Count 104 L MPV 9.0 Immature Gran % (Auto) 0.500 Neut % (Auto) 59.7 Lymph % (Auto) 23.2 [place] % (Auto) 13.5 H Eos % (Auto) 2.6 Baso % (Auto) 0.5 Absolute Neuts (auto) 2.3 Absolute Lymphs (auto) 0.91 Nucleated RBC % 0 Sodium 134 L Potassium 4.1 Chloride 101 Carbon Dioxide 29.0 Anion Gap 4 L BUN 20 H Creatinine 0.80 Est GFR (MDRD) Af Amer 94 Est GFR (MDRD) Non-Af 77 BUN/Creatinine Ratio 25.0 H Glucose 114 H Calcium 8.2 L Total Bilirubin 2.20 H Direct Bilirubin 0.90 H AST 37 ALT 22 Alkaline Phosphatase 228 H Total Protein 6.2 L Albumin 2.5 L Globulin 3.7 Lipase 50 Urine Color Yellow Urine Clarity Clear Urine pH 5.0 Ur Specific [place] 1.015 Urine Protein 15 H Urine Glucose (UA) Normal Urine Ketones Negative Urine Occult Blood 10 H Urine Nitrite Negative Urine Bilirubin Negative Urine Urobilinogen 1 H Ur Leukocyte Esterase Negative Urine RBC 0-5 SEEN Urine WBC 0-5 SEEN Ur Squamous Epith Cells 0-5 SEEN Urine Bacteria 1+ Hyaline Casts 0-5 SEEN Urine Mucus 0 SEEN Radiography Diagnostic Testing: Clinical Impression(s) from Imaging Studies Abdomen/Pelvis CT 07/06/24 13:51 IMPRESSION: (NOT LISTED IN ORDER OF SIGNIFICANCE) Hepatic cirrhosis. Significant ascites. Chronic changes in the right lung. Large lower abdominal and lying ventral hernia containing fluid. Other findings as above. Electronically Signed: Jt Betancourt MD at 15:11 EDT , Discharge Plan Triage Chief Complaint: Abd Pain ED Provider: Jaqueline Felix Dx/Rx/DC Orders Clinical Impression: Abdominal pain, Abdominal ascites, Nausea, Ventral hernia Instructions: ED Abdominal Pain Unkn Cause Fem Prescriptions: New ondansetron 4 mg tablet,disintegrating 4 mg PO Q8H PRN PRN (Reason: Nausea) Qty: 10 0RF No Action albuterol sulfate 90 mcg/actuation HFA aerosol inhaler 2 puff inhalation Q4H PRN (Reason: WHEEZING, SOB) Patient Comments: INHALE 2 PUFFS BY MOUTH EVERY 4 HOURS NEEDED spironolactone 25 mg tablet 50 mg PO DAILY Qty: 180 1RF pantoprazole 40 mg tablet,delayed release (DR/EC) 40 mg PO DAILY Qty: 30 5RF lactulose 20 gram/30 mL solution 20 g PO BID Qty: 3000 5RF rifampin 600 mg OTHER BID ondansetron 4 mg Film 4 mg PO Q12H PRN (Reason: Nausea) ondansetron [ondansetron] 4 mg tablet,disintegrating 4 mg PO Q8H PRN PRN (Reason: Nausea) Qty: 10 0RF oxycodone 5 mg capsule 5 mg PO Q6H PRN PRN (Reason: pain) 3 Days Qty: 12 0RF torsemide 20 mg tablet PO UD spironolactone 100 mg tablet 300 mg PO DAILY metronidazole 500 mg tablet 500 mg PO TID ciprofloxacin HCl 500 mg tablet 500 mg PO BID midodrine 5 mg tablet 5 mg PO TID Rx Instructions: do not give last dose of day after 6PM or within 4 hrs of bedtime furosemide [Lasix] 40 mg tablet 80 mg PO DAILY lidocaine HCl [Lidocaine Viscous] 2 % solution 1 applic mucous membrane TID PRN (Reason: pain) Qty: 600 0RF melatonin 10 mg capsule 10 mg PO HS PRN (Reason: sleep) Qty: 30 0RF Primary Care Provider: Darlene Garibay Referrals: Darlene Garibay MD [Primary Care Provider] - Terry Estrada DO [Med Staff - Active Staff] - 1-2 Weeks Activity Restrictions/Additional Instructions: Your workup is largely normal and stable today. The cause your pain is not clear. Please follow-up outpatient with Dr. Estrada. Return if you have progression worsening your symptoms. You have been given a prescription for Zofran to help with the nausea. Print Language: Swiss Disposition Disposition: Home, Self Care
[2024-07-06] MEDS: Ondansetron 4 MG/2 ML Vial IV (13:58)
[2024-07-06] MEDS: Morphine 4 MG/ML Syringe IV (13:58)
[2024-07-06 14:08] LABS: Absolute Lymphocyte Count 0.91 X10^3/uL (0.83-4.51); Absolute Neutrophil Count 2.3 X10^3/uL (2.0-7.7); Basophil# 0.02 X10^3/uL; Basophil% 0.5 % (0-1); Eosinophils% 2.6 % (0-5); Hematocrit 32.5 % (37-47); Lymphocyte # 0.91 X10^3/ul (0.83-4.51); Lymphocyte % 23.2 % (19-41); Mean Corp Hgb Conc 33.8 g/dL (32-36); Mean Corpuscular Volume 97.6 fL (81-99); Monocyte# 0.53 X10^3/uL; Monocyte% 13.5 % (0-10); NRBC Flagged by Analyzer 0 % (0-5); Neutrophil # 2.34 X10^3/uL (2.7-7.7); Neutrophil % 59.7 % (47-70); Platelet Count 104 K/mm3 (150-450); RBC Distribution Width CV 15.4 % (11.6-14.6); RBC Distribution Width SD 55.3 fl (35.1-43.9); Red Blood Count 3.33 M/mm3 (4.2-5.4); White Blood Count 3.9 K/mm3 (4.4-11.0)
[2024-07-06 14:23] LABS: AST(SGOT) 37 U/L (15-37); Alanine Aminotransfer ALT/SGPT 22 U/L (13-56); Albumin, Serum 2.5 g/dL (3.2-5.0); Alkaline Phosphatase 228 U/L (45-117); Anion Gap 4 (5-15); BUN 20 mg/dL (7-18); Calcium,Total 8.2 mg/dL (8.5-10.1); Chloride 101 mmol/L (98-107); EST Glomerular Filtration Rate 77 mL/min (>60); Est Glom Filt Rate - Afr Amer 94 mL/min (>60); Globulin 3.7 g/dL (2.2-4.2); Glucose 114 mg/dL (74-106); Lipase 50 U/L (13-75); Potassium 4.1 mmol/L (3.5-5.1); Protein, Total 6.2 g/dL (6.4-8.2); Sodium Level 134 mmol/L (136-145)
[2024-07-06 15:18] VITALS: BP 97/59; PULSE 74; RESP 19; O2SAT 100
[2024-07-06 15:35] LABS: Mucous, Urine 0 SEEN /hpf (<or=2+)
[2024-07-06 15:42] LABS: Color, Urine Yellow (Yellow); Glucose, Dipstick Normal (Normal); Ketone-Dipstick Negative (Negative); Leukocyte Esterase-Dipstick Negative /ul (Negative); Nitrite-Dipstick Negative (Negative); Occult Blood-Urine 10 /ul (Negative); Protein-Dipstick 15 mg/dl (Negative); Specific Gravity, Urine 1.015 (1.002-1.030); Urine Bilirubin Dipstick Negative (Negative); Urine Clarity Clear (Clear); Urine Urobilinogen 1 mg/dl (Normal)
[2024-07-06 15:53] LABS: Bacteria 1+ /hpf (None Seen); Squamous Epithelial Cells - UA 0-5 SEEN /hpf (5-10); White Blood Cells 0-5 SEEN /hpf (0-5)
[2024-07-06 15:55] LABS: Hyaline Cast 0-5 SEEN /lpf (0-5); Red Blood Cells-Urine 0-5 SEEN /hpf (0-5)
[2024-07-06 17:00] VITALS: BP 94/42; PULSE 73; RESP 18; O2SAT 98
[2024-07-06] MEDS: DiphenhydrAMINE 50 MG/ML Syringe 25 MG IV (18:09)
[2024-07-06 19:00] VITALS: BP 95/59
[2024-07-06 19:03] VITALS: BP 95/59; PULSE 72; RESP 19; TEMP 36.2; O2SAT 100
== END 2024-07-06 19:39 | disposition home or self-care (01) ==
PROVIDERS: Emergency Provider Emergency Medicine; PCP Family Medicine; Visit Provider Emergency Medicine
DX: R10.9 Unspecified abdominal pain (principal); K74.60 Unspecified cirrhosis of liver; J43.9 Emphysema, unspecified; K43.9 Ventral hernia without obstruction or gangrene; R11.0 Nausea; R18.8 Other ascites; K75.81 Nonalcoholic steatohepatitis (NASH); Z90.49 Acquired absence of other specified parts of digestive tract; Z99.81 Dependence on supplemental oxygen; Z79.899 Other long term (current) drug therapy
CPT/HCPCS: 74177; 80048; 80076; 81001; 83690; 85025; 93005; 96374; 96375; 99283; Q9967; A4216; J2405

== ENCOUNTER → 2024-07-08 | Outpatient (CLI) | payer SELFPAY ==
--- NOTE | 2024-07-08 10:36 | US_ITS ---
PROCEDURE: Ultrasound guided paracentesis. DATE OF EXAMINATION: July 08, 2024.. INDICATION: Female, 64 years old. Ascites. PHYSICIAN: Valeriano Hull M.D. TECHNIQUE: The risks, benefits, and alternatives to the procedure were explained to the patient. The specific risks of bleeding, infection, and damage to bowel were detailed and accepted. Witnessed informed consent was obtained. The abdomen was ultrasonographically surveyed. An appropriate pocket of fluid was identified at the left lower quadrant. The skin were cleaned and prepped in the usual sterile fashion. Using ultrasound guidance, the peritoneal cavity was accessed with a 5-Divehi paracentesis needle/catheter system. The trocar was removed. A total of 7000 ml of willis-colored fluid were removed from the peritoneal cavity. The catheter was removed and a sterile dressing was applied. The procedure was well tolerated. US/Paracentesis with US IMPRESSION: Ultrasound guided paracentesis. Electronically Signed: Valeriano Hull MD at 12:00 EDT ,
[2024-07-08 10:46] VITALS: BP 93/53; PULSE 93; RESP 18; TEMP 37; O2SAT 98
[2024-07-08] MEDS: Lidocaine 2% (20 ml mdv) 20 ML Vial INFILT (10:49)
[2024-07-08 10:50] VITALS: BP 88/59; PULSE 93; RESP 18; O2SAT 98
[2024-07-08 11:00] VITALS: BP 89/59; PULSE 98; RESP 18; O2SAT 97
[2024-07-08 11:15] VITALS: BP 90/51; PULSE 92; RESP 18; O2SAT 98
[2024-07-08 11:30] VITALS: BP 100/55; PULSE 87; RESP 18; O2SAT 99
[2024-07-08] MEDS: 0.9% NaCl Peripheral Flush Adult/Peds IV (11:40)
[2024-07-08 12:08] VITALS: BMI 29.2
[2024-07-08] MEDS: Albumin Human 25% (100 mL) 25 GM/100 ML BAG IV (12:08)
[2024-07-08] MEDS: Albumin Human 25% (50 mL) 12.5 GM/50 ML IV.SOLN IV (13:39)
[2024-07-08 14:41] VITALS: BP 92/56; PULSE 65
== END | disposition home or self-care (01) ==
PROVIDERS: PCP Family Medicine; Referring Provider Internal Medicine Gastroenterology; Visit Provider Internal Medicine Gastroenterology
DX: R18.8 Other ascites (principal)
CPT/HCPCS: 49083; J7050; P9047

== ENCOUNTER → 2024-07-15 | Outpatient (CLI) | payer SELFPAY ==
[2024-07-15] MEDS: Lidocaine 2% (20 ml mdv) 20 ML Vial INFILT (11:00)
--- NOTE | 2024-07-15 11:26 | PRO.PCM_ITS ---
Procedure Report Date of Procedure: 07/15/24 Assessment & Plan Assessment/Plan (1) Abdominal ascites: QUALIFIERS: Ascites type: other type Qualified Code(s): R18.8 - Other ascites PLAN: PROCEDURE: Ultrasound guided paracentesis ORDERING PROVIDER: Dr. Estrada INDICATION: Female, 64 years old. Abdominal ascites. PROVIDER: [employer] TECHNIQUE: The risks, benefits, and alternatives to the procedure were explained to the patient and daughter. The specific risks of bleeding, infection, and damage to bowel were detailed and accepted. Witnessed informed consent was obtained. The abdomen was ultrasonographically surveyed. An appropriate pocket of fluid was identified in the left lower quadrant. The skin was prepped with chlorhexidine and sterile field established. 2% lidocaine was used for local anesthetic. Using ultrasound guidance, the peritoneal cavity was accessed with a 5-Latvian paracentesis needle/catheter system. The trocar was removed. A total of 3150 ml of clear yellow colored fluid was removed from the peritoneal cavity. The catheter was removed and a sterile dressing was applied. The procedure was well tolerated. IMPRESSION: Successful ultrasound guided paracentesis with left lower quadrant access site. Procedures Radiology Radiology US Procedures: [id number] Paracentesis
[2024-07-15 11:27] VITALS: BP 103/53; PULSE 84; RESP 18; TEMP 36.8; O2SAT 98
[2024-07-15 11:28] VITALS: BP 101/51; PULSE 81; RESP 18; O2SAT 99
[2024-07-15 11:29] VITALS: BP 94/54; PULSE 85; RESP 18; O2SAT 98
== END | disposition home or self-care (01) ==
PROVIDERS: PCP Family Medicine; Referring Provider Internal Medicine Gastroenterology; Visit Provider Internal Medicine Gastroenterology
DX: R18.8 Other ascites (principal)
CPT/HCPCS: 49083

== ENCOUNTER → 2024-07-22 | Outpatient (CLI) | payer SELFPAY ==
--- NOTE | 2024-07-22 10:28 | US_ITS ---
PROCEDURE: Ultrasound guided paracentesis. DATE OF EXAMINATION: July 22, 2024. INDICATION: Female, 64 years old. Ascites. PHYSICIAN: Valeriano Hull M.D. TECHNIQUE: The risks, benefits, and alternatives to the procedure were explained to the patient. The specific risks of bleeding, infection, and damage to bowel were detailed and accepted. Witnessed informed consent was obtained. The abdomen was ultrasonographically surveyed. An appropriate pocket of fluid was identified at the right lower quadrant. The skin were cleaned and prepped in the usual sterile fashion. Using ultrasound guidance, the peritoneal cavity was accessed with a 5-Telugu paracentesis needle/catheter system. The trocar was removed. A total of 7400 ml of willis-colored fluid were removed from the peritoneal cavity. The catheter was removed and a sterile dressing was applied. The procedure was well tolerated. US/Paracentesis with US IMPRESSION: Ultrasound guided paracentesis. Electronically Signed: Valeriano Hull MD at 12:37 EDT ,
[2024-07-22 10:46] VITALS: BP 90/55; PULSE 109; RESP 16; O2SAT 99
[2024-07-22] MEDS: Lidocaine 2% (20 ml mdv) 20 ML Vial INFILT (10:47)
[2024-07-22 11:00] VITALS: BP 98/59; PULSE 105; RESP 16; O2SAT 99
[2024-07-22 11:15] VITALS: BP 94/53; PULSE 108; RESP 16; O2SAT 100
[2024-07-22] MEDS: Albumin Human 25% (100 mL) 25 GM/100 ML BAG IV ×2 (11:47→13:18)
[2024-07-22 11:50] VITALS: BMI 26.6
[2024-07-22 15:14] VITALS: BP 93/49; PULSE 89
--- NOTE | 2024-07-22 15:17 | PCM.OP.PRO ---
Procedure Report Date of Procedure: 07/22/24 Assessment & Plan Assessment/Plan (1) Abdominal ascites: QUALIFIERS: Ascites type: other type Qualified Code(s): R18.8 - Other ascites PLAN: PROCEDURE: Ultrasound guided paracentesis ORDERING PROVIDER: Dr. Estrada INDICATION: Female, 64 years old. Abdominal ascites. PROVIDER: [employer] TECHNIQUE: The risks, benefits, and alternatives to the procedure were explained to the patient. The specific risks of bleeding, infection, and damage to bowel were detailed and accepted. Witnessed informed consent was obtained. The abdomen was ultrasonographically surveyed. An appropriate pocket of fluid was identified in the right lower quadrant. The skin was prepped with chlorhexidine and sterile field established. 2% lidocaine was used for local anesthetic. Using ultrasound guidance, the peritoneal cavity was accessed with a 5-Divehi paracentesis needle/catheter system. The trocar was removed. A total of 7400 ml of clear yellow colored fluid was removed from the peritoneal cavity. The catheter was removed and a sterile dressing was applied. The procedure was well tolerated. IMPRESSION: Successful ultrasound guided paracentesis with right lower quadrant access site. Procedures Radiology Radiology US Procedures: [id number] Paracentesis
== END | disposition home or self-care (01) ==
LOC: US 10:28
PROVIDERS: PCP Family Medicine; Referring Provider Internal Medicine Gastroenterology; Visit Provider Internal Medicine Gastroenterology
DX: R18.8 Other ascites (principal)
CPT/HCPCS: 96365; 96366; 49083; J7050; P9047

== ENCOUNTER → 2024-07-29 | Outpatient (CLI) | payer SELFPAY ==
[2024-07-29] MEDS: Lidocaine 2% (20 ml mdv) 20 ML Vial INFILT (11:20)
[2024-07-29] MEDS: Albumin Human 25% (100 mL) 25 GM/100 ML BAG IV (12:08)
[2024-07-29] MEDS: 0.9% NaCl Peripheral Flush Adult/Peds IV (12:10)
[2024-07-29] MEDS: Albumin Human 25% (50 mL) 12.5 GM/50 ML IV.SOLN IV (13:33)
[2024-07-29 14:35] VITALS: BP 89/59; PULSE 81; RESP 16
[2024-07-29 14:48] VITALS: BP 94/57; PULSE 82; RESP 18; TEMP 36.8; O2SAT 100
[2024-07-29 14:49] VITALS: BP 110/58; BP 90/66; PULSE 103; PULSE 95; RESP 16; RESP 18; O2SAT 98; O2SAT 99
[2024-07-29 14:50] VITALS: BP 100/57; PULSE 99; RESP 16; O2SAT 100
--- NOTE | 2024-07-29 15:32 | PCM.OP.PRO ---
Procedure Report Date of Procedure: 07/29/24 Assessment & Plan Assessment/Plan (1) Abdominal ascites: QUALIFIERS: Ascites type: other type Qualified Code(s): R18.8 - Other ascites PLAN: PROCEDURE: Ultrasound guided paracentesis ORDERING PROVIDER: Dr. Estrada INDICATION: Female, 64 years old. Abdominal ascites. PROVIDER: [employer] TECHNIQUE: The risks, benefits, and alternatives to the procedure were explained to the patient. The specific risks of bleeding, infection, and damage to bowel were detailed and accepted. Witnessed informed consent was obtained. The abdomen was ultrasonographically surveyed. An appropriate pocket of fluid was identified in the right upper quadrant. The skin was prepped with chlorhexidine and sterile field established. 2% lidocaine was used for local anesthetic. Using ultrasound guidance, the peritoneal cavity was accessed with a 5-Kiswahili paracentesis needle/catheter system. The trocar was removed. A total of 5700 ml of clear yellow colored fluid was removed from the peritoneal cavity. The catheter was removed and a sterile dressing was applied. The procedure was well tolerated. IMPRESSION: Successful ultrasound guided paracentesis with right upper quadrant access site. Procedures Radiology Radiology US Procedures: [id number] Paracentesis
== END | disposition home or self-care (01) ==
LOC: US 10:01
PROVIDERS: PCP Family Medicine; Referring Provider Internal Medicine Gastroenterology; Visit Provider Internal Medicine Gastroenterology
DX: R18.8 Other ascites (principal)
CPT/HCPCS: 96365; 96366; 49083; J7050; P9047; A4216

== ENCOUNTER → 2024-08-07 | Outpatient (CLI) | payer SELFPAY ==
--- NOTE | 2024-08-07 08:14 | US_ITS ---
PROCEDURE: Ultrasound guided paracentesis. DATE OF EXAMINATION: August 07, 2024.. INDICATION: Female, 64 years old. Ascites. PHYSICIAN: Valeriano Hull M.D. TECHNIQUE: The risks, benefits, and alternatives to the procedure were explained to the patient. The specific risks of bleeding, infection, and damage to bowel were detailed and accepted. Witnessed informed consent was obtained. The abdomen was ultrasonographically surveyed. An appropriate pocket of fluid was identified at the right lower quadrant. The skin were cleaned and prepped in the usual sterile fashion. Using ultrasound guidance, the peritoneal cavity was accessed with a 5-Tuvaluan paracentesis needle/catheter system. The trocar was removed. A total of 7800 ml of willis-colored fluid were removed from the peritoneal cavity. The catheter was removed and a sterile dressing was applied. The procedure was well tolerated. US/Paracentesis with US IMPRESSION: Ultrasound guided paracentesis. Electronically Signed: Valeriano Hull MD at 10:18 EDT ,
[2024-08-07 08:20] VITALS: BP 97/52; PULSE 84; RESP 16; O2SAT 98
[2024-08-07] MEDS: Lidocaine 2% (20 ml mdv) 20 ML Vial INFILT (08:25)
[2024-08-07 08:35] VITALS: BP 91/44; PULSE 80; RESP 16; O2SAT 100
[2024-08-07 08:50] VITALS: BP 92/44; PULSE 83; RESP 16; O2SAT 100
[2024-08-07 08:54] VITALS: BP 85/53; PULSE 80; RESP 16; O2SAT 99
[2024-08-07 09:07] VITALS: BP 94/35; PULSE 85; RESP 14; O2SAT 99
[2024-08-07] MEDS: Albumin Human 25% (100 mL) 25 GM/100 ML BAG IV ×2 (09:40→11:10)
[2024-08-07] MEDS: 0.9% Saline Lock 10 ML Syringe IV (09:42)
[2024-08-07 13:03] VITALS: BP 86/43; PULSE 76
== END | disposition home or self-care (01) ==
LOC: US 08:13
PROVIDERS: PCP Family Medicine; Referring Provider Internal Medicine Gastroenterology; Visit Provider Internal Medicine Gastroenterology
DX: R18.8 Other ascites (principal)
CPT/HCPCS: 96365; 96366; 49083; P9047

== ENCOUNTER → 2024-08-15 | Outpatient (CLI) | payer SELFPAY ==
[2024-08-15 10:35] VITALS: BP 93/60; PULSE 101; RESP 16; TEMP 36.8; O2SAT 99
[2024-08-15] MEDS: Lidocaine 2% (20 ml mdv) 20 ML Vial INFILT (10:40)
--- OUTSIDE RECORDS SUMMARY | 2024-08-15 10:41 | XMS RPT_ITS | CCD ---
Author Organization [facility] Care Team Providers Care City Detective Name Role Phone Unavailable Primary Care Provider Unavailjairo Garibay MD, [place] Primary Care Provider [phone] SELF, SELF Referring Unavailable ZAHRAA, CHATHUR Attending Unavailable ZAHRAA, CHATHUR Referring Unavailable [facility] Primary Care Unavailable MARSHAL HINESLA F Admitting Unavailable SETH HINES Attending Unavailable [facility] Primary Care Unavailable SELF, SELF Referring Unavailable ZAHRAA, CHATHUR Attending Unavailable ZAHRAA, CHATHUR Referring Unavailable ZAHRAA, CHATHUR Attending Unavailable [facility] Primary Care Unavailable ZAHRAA, CHATHUR Referring Unavailable [facility] Primary Care Unavailable AMBER CLEMONS Attending Unavailable [facility] Primary Care Unavailable ANNABEL GOETZ Attending Unavailable [facility] Primary Care Unavailable SELF, SELF Referring Unavailable BUTNARIU, KEN I Attending Unavailable ZAHRAA, CHATHUR Referring Unavailable [facility] Primary Care Unavailable BUTDONALD, KEN I Referring Unavailable [facility] Primary Care Unavailable MATTEO MARTINEZ Attending Unavailable ANNABEL GOETZ Attending Unavailable [facility] Primary Care Unavailable SELF, SELF Referring Unavailable ANNABEL GOETZ Attending Unavailable [facility] Primary Care Unavailable [facility], DARLENE Referring Unavailable ANNABEL GOETZ Attending Unavailable [facility] Primary Care Unavailable SELF, SELF Referring Unavailable BISHNU ANNABEL Referring Unavailable ZAHRAA, CHATHUR Attending Unavailable [facility] Primary Care Unavailable BISHNU ANNABEL Referring Unavailable ZAHRAA, CHATHUR Attending Unavailable [facility] Primary Care Unavailable ANNABEL GOETZ Attending Unavailable SELF, SELF Referring Unavailable [facility], DARLENE Primary Care Unavailable ANNABEL GOETZ Attending Unavailable AARON DARLENE Referring Unavailable AARON, DARLENE Primary Care Unavailable AARON DARLENE Primary Care Unavailable HAILE POLLOCK Attending Unavailable HAILE POLLOCK Referring Unavailable Friend Terry JACOB Unavailable Darlene Garibay MD Primary Care Provider AWA REILLY Referring Unavailable AARON DARLENE E Primary Care Unavailable AARON DARLENE E Primary Care Unavailable ALVINO ROBBINS Attending Unavailable AARON, DARLENE E Primary Care Unavailable DARLENE GARIBAY Primary Care Unavailable SHERRI MARTINEZ Referring Unavailable AARON DARLENE E Primary Care Unavailable SHERRI MARTINEZ Referring Unavailable AARON, DARLENE E Primary Care Unavailable SHERRI MARTINEZ Referring Unavailable Medications Current Medications Medication Drug Class(es) Dates Sig (Normalized) Sig (Original) Acetaminophen / oxyCODONE (12 sources) Opioid Agonist take 5 capsules by mouth once daily OXYCODONE-ACETAMINO PHEN PO Take 5 capsules by mouth daily. Active take 5 capsules by m outh once daily OXYCODONE-ACETAMINOPHEN PO Take 5 capsul es by mouth daily. 0 Active [id number] actuat albuterol 0.09 mg/actuat metered dose inhaler (8 sources) beta2-Adrenergic Agonist Start: 04-07-2024 albuterol HFA (PROVENTIL HFA, VENTOLIN HFA) 90 mcg/actuation inhaler Inhale 2 Puffs as instructed. 04/07/2024 Active albuterol 90 MCG/ACT Inhaler (1 source) take 2 puff(s) by inhalation every six hours as needed albuterol 90 MCG/ACT Inhaler Inhale 2 puffs every 6 hours as needed. 0 Active ciprofloxacin 500 mg oral tablet (8 sources) Quinolone Antimicrobial Start: 04-11-2024 take 1 tablet by mouth every twelve hours ciprofloxacin HCl (CIPRO) 500 mg tablet Take 1 tablet by mouth every 12 hours. 04/11/2024 Active cyclobenzaprine hydrochloride 5 mg oral tablet (8 sources) Muscle Relaxant Start: 05-15-2024 take 1 tablet by mouth every eight hours as needed cyclobenzaprine (FLEXERIL) 5 mg tablet Take 5 mg by mouth every 8 hours as needed. 05/15/2024 Active iv contrast (will be provided with radiology test) (2 sources) Start: 08-05-2024 End: 08-06-2024 iv contrast (will be provided with radiology test) Indications: Cirrhosis of liver with ascites, unspecified hepatic cirrhosis type (HCC) (HCC) CT ABD/PEL -Inject, intravenously, once for 1 dose.No IV access, insert saline lock prior to the beginning of sedation, infusion, injection of imaging exam. Discontinue saline lock post exam. If Pt. has a central line or IVAD, may access for administration according to line specific nursing protocol. Once exam is complete flush line and de-access according to line specific nursing protocol in the CT contrast administration guidelines link. 1 Each 08/05/2024 08/06/2024 Active lidocaine hydrochloride 20 mg/ml mucous membrane topical solution (1 source) Antiarrhythmic, Amide Local Anesthetic take 15 mL oropharyngeal route every three hours as needed Lidocaine HCl (Lidocaine viscous) 2 % Solution 15 mL by Mouth/Throat route every 3 hours as needed. 0 Active metroNIDAZOLE 500 mg oral tablet (8 sources) Nitroimidazole Antimicrobial Start: 04-11-2024 take 1 tablet by mouth three times daily metroNIDAZOLE (FLAGYL) 500 mg tablet Take 500 mg by mouth three times a day. 04/11/2024 Active midodrine hydrochloride 5 mg oral tablet (17 sources) alpha-Adrenergic Agonist Start: 04-14-2024 take 1 tablet by mouth three times daily midodrine (PROAMITINE) 5 mg tablet Take 1 tablet by mouth three times a day. 04/14/2024 Active Start: 08-30-2023 End: 09-29-2023 take 3 tablets by mouth three times daily midodrine 5 MG tablet Take 3 tablets by mouth 3 times daily. 270 tablet 0 08/30/2023 09/29/2023 Active Start: 08-30-2023 End: 08-30-2023 midodrine (ProAmatine) table t 15 mg Start: 08-30-2023 End: 08-30-2023 midodrine (ProAmatine) table t 5 mg Start: 08-28-2023 End: 08-30-2023 take 10 mg by mouth three times daily 10 mg, Oral, 3 TIMES DAILY, First dose on Sun08/28/23 at 1400, Until Discontinued Hold for SBP greater than 140 Start: 02-13-2023 End: 08-30-2023 take 1 tablet by mouth three times daily Midodrine HCl 10 MG tablet Indications: Other ascites Take 1 tablet by mouth 3 times daily. 90 tablet 3 02/13/2023 08/30/2023 Discontinued (Stop Taking at Discharge) Start: 11-07-2022 take 1 tablet by lashawn th three times daily midodrine 5 MG tablet Indications: Decompensated hepatic cirrhosis Take 1 tablet by mouth 3 times daily. 30 tablet 3 11/07/2022 Active ondansetron 4 mg oral tablet (20 sources) Serotonin-3 Receptor Antagonist Start: 10-04-2022 take 1 tablet by mouth every twelve hours Ondansetron 4 MG tablet Take 1 tablet by mouth every 12 hours. 10/04/2022 Active ondansetron (ZOF RAN) 4 mg tablet Take by mouth every 8 hours as needed for nausea/vomiting. Active oxyCODONE hydrochloride 5 mg oral capsule (8 sources) Opioid Agonist Start: 04-21-2024 take 1 capsule by mouth every six hours as needed for pain oxyCODONE ir (OXYIR) 5 mg capsule TAKE 1 CAPSULE BY MOUTH EVERY 6 HOURS NEEDED FOR PAIN 04/21/2024 Active Pneumococcal 20-Sade Conj Vacc 0.5 ML Suspension Prefilled Syringe injection (1 source) Start: 05-23-2023 End: 05-23-2023 inject 0.5 mL by intramuscular injection once Pneumococcal 20-Sade Conj Vacc 0.5 ML Suspension Prefilled Syringe injection Indications: Decompensated hepatic cirrhosis Inject 0.5 mL intramuscularly Once (In Clinic) for 1 dose. 0.5 mL 0 05/23/2023 05/23/2023 Active Promethazine (8 sources) Phenothiazine promethazine HCl (PROMETHAZINE ORAL) Take by mouth. Active PROMETHAZINE-CODEI NE PO (12 sources) take 5-10 mL by mouth every six hours PROMETHAZINE-CODEIN E PO Take by mouth. 5 to 10 ml q6hr Active take 5-10 mL by mout h every six hours PROMETHAZINE-CODEINE PO Take by mouth. 5 to 10 ml q6hr 0 Active rifAMPin 300 mg oral capsule (1 source) Rifamycin Antibacterial take 1 capsule by mouth twice daily rifAMPin 300 MG capsule Take 1 capsule by mouth 2 times daily. 0 Active spironolactone 100 mg oral tablet (20 sources) Aldosterone Antagonist Start: take 3 tablets by mouth once spironolactone (ALDACTONE) 100 mg tablet Take 3 tablets by mouth every afternoon. 05/10/2024 Active Start: 04-10-2024 take 3 tablets by mo uth once daily Spironolactone 100 MG tablet Indications: Decompensated hepatic cirrhosis Take 3 tablets by mouth daily. 90 tablet 1 04/10/2024 Active Start: 05-25-2023 take 3 tablets by mo uth once daily Spironolactone 100 MG tablet Indications: Decompensated hepatic cirrhosis Take 3 tablets by mouth daily. 90 tablet 3 05/25/2023 Active Start: 02-13-2023 take 2 tablets by mo uth once daily Spironolactone 100 MG tablet Indications: Decompensated hepatic cirrhosis Take 2 tablets by mouth daily. 90 tablet 3 02/13/2023 Active End: 11-07-2022 take 1 tablet by mouth once daily, then take 2 tablets by mouth once daily Spironolactone 25 MG tablet Take 1 tablet by mouth daily. 2 tabs daily 0 11/07/2022 Discontinued torsemide 20 mg oral tablet (15 sources) Loop Diuretic Start: 04-10-2024 End: 04-14-2024 take 2 tablets by mouth in the morning, then take 1 tablet by mouth in the evening torsemide (DEMADEX) 20 mg tablet TAKE 2 TABLETS BY MOUTH IN THE MORNING AND 1 IN THE EVENING 04/11/2024 Active Start: 10-17-2023 Torsemide 20 M G tablet Indications: 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 Take 40 mg in the AM and 20 mg in the PM 90 tablet 2 10/17/2023 Active Start: 08-30-2023 End: 09-29-2023 take 1 tablet by mouth twice daily before mealtime Torsemide 20 MG tablet Take 1 tablet by mouth 2 times daily (take before meals). 60 tablet 0 08/30/2023 Active Completed/Discontinued Medications Medication Drug Class(es) Dates Sig (Normalized) Sig (Original) acetaminophen 325 mg oral tablet (1 source) Start: 08-28-2023 End: 08-30-2023 take 1 tablet by mouth every six hours as needed Acetaminophen (TYLENOL) tablet 650 mg Albumin Human, SHELTER (2 sources) Human Serum Albumin Start: 08-29-2023 End: 08-29-2023 albumin human 25 % injection 50 g Start: 08-29-2023 End: 08-30-2023 albumin human 5 % injection 25 g furosemide 40 mg oral tablet (7 sources) Loop Diuretic Start: 05-25-2023 End: 08-30-2023 take 3 tablets by mouth once daily furOSEmide 40 MG tablet Indications: Decompensated hepatic cirrhosis Take 3 tablets by mouth daily. 90 tablet 3 05/25/2023 08/30/2023 Discontinued (Stop Taking at Discharge) Start: 02-13-2023 take 2 tablets by mo [facility] once daily furOSEmide 40 MG tablet Indications: Decompensated hepatic cirrhosis Take 2 tablets by mouth daily. 90 tablet 3 02/13/2023 Active guaiFENesin 20 mg/ml oral solution (1 source) Start: 08-28-2023 End: 08-30-2023 take 400 mg by mouth every six hours as needed guaiFENesin (ROBITUSSIN) oral solution 400 mg Iohexol (OMNIPAQUE) 300 MG/ML 50 mL in Water po liquid (free water) 950 mL (1 source) Start: 07-05-2023 End: 07-05-2023 Iohexol (OMNIPAQUE) 300 MG/ML 50 mL in Water po liquid (free water) 950 mL iohexol (OMNIPAQUE) 350 MG/ML injection 1-171 mL (1 source) Start: 07-05-2023 End: 07-05-2023 iohexol (OMNIPAQUE) 350 MG/ML injection 1-171 mL lactulose 667 mg/ml oral solution (18 sources) Osmotic Laxative Start: 08-28-2023 End: 08-30-2023 20 g, Oral, 2 TIMES DAILY, First dose on Sun08/28/23 at 1700, Until Discontinued take 20 g by mouth three times d aily lactulose 10 gram/15 mL solution Take 20 g by mouth three times a day. Active melatonin 3 mg oral tablet (1 source) Start: 08-28-2023 End: 08-30-2023 Melatonin tablet 6 mg Ondansetron 4mg/2ml (ZOFRAN) injection 4 mg (1 source) Start: 08-28-2023 End: 08-30-2023 take 4 mg intravenously every six hours as needed Ondansetron 4mg/2ml (ZOFRAN) injection 4 mg Perflutren Lipid Microsphere (DEFINITY) 1.5 mL in Normal saline flush 0.9% 8.5 mL (1 source) Start: 08-27-2023 End: 08-27-2023 Perflutren Lipid Microsphere (DEFINITY) 1.5 mL in Normal saline flush 0.9% 8.5 mL polyethylene glycol [id number] [id number] mg powder for oral solution (1 source) Osmotic Laxative Start: 08-28-2023 End: 08-30-2023 Polyethylene glycol (MIRALAX) packet 17 g prochlorperazine 5 mg/ml injectable solution (1 source) Phenothiazine Start: 08-29-2023 End: 08-30-2023 take 5 mg intravenously every hour as needed Prochlorperazine (COMPAZINE) injection 5 mg 1000 ml sodium chloride 9 mg/ml injection (2 sources) Start: 08-28-2023 End: 08-30-2023 Sodium chloride 0.9% IV solution 250 mL Start: 07-05-2023 End: 07-05-2023 Sodium chloride (PF) 0.9 % i njection 1-100 mL Problems Active Problems Problem Classification Problem Date Documented Da te Episodic/Chronic Abdominal pain (1 source) Generalized abdominal pain; Translations: [Generalized abdominal pain] 04-14-2024 Episodic Esophageal disorders (2 sources) Esophageal varices without bleeding; Translations: [Esophageal varices without bleeding] Onset: 06-26-2024 06-26-2024 Chronic Hepatitis (14 sources) Cirrhosis - non-alcoholic; Translations: [Nonalcoholic steatohepatitis (HARRISON)] Onset: 08-28-2023 08-28-2023 Chronic Other circulatory disease (4 sources) Low blood pressure; Translations: [Hypotension, unspecified] Onset: 08-11-2024 08-11-2024 Episodic Other gastrointestinal disorders (3 sources) Other ascites; Translations: [Other ascites] Onset: 08-28-2023 Episodic Other gastrointestinal disorders (1 source) Refractory ascites; Translations: [Other ascites] 06-26-2024 Episodic Other gastrointestinal disorders (1 source) Personal history of other diseases of the digestive system; Translations: [History of esophageal varices] Onset: 08-10-2024 Episodic Other gastrointestinal disorders (4 sources) History of esophageal varices; Translations: [Personal history of other diseases of the digestive system] Onset: 08-10-2024 08-10-2024 Episodic Other liver diseases (1 source) Non-alcoholic fatty liver; Translations: [Fatty (change of) liver, not elsewhere classified] Chronic Other liver diseases (5 sources) Cirrhosis of liver; Translations: [Other cirrhosis of liver] Onset: 08-28-2023 08-10-2023 Chronic Other liver diseases (4 sources) Unspecified cirrhosis of liver; Translations: [Unspecified cirrhosis of liver] Onset: 01-02-2024 Chronic Other liver diseases (1 source) Other cirrhosis of liver; Translations: [Other cirrhosis of liver] Onset: 08-28-2023 Chronic Other liver diseases (6 sources) Decompensated cirrhosis of liver; Translations: [Hepatic failure, unspecified without coma] Episodic Other liver diseases (2 sources) Hepatic encephalopathy; Translations: [Hepatic encephalopathy (HCC)] Onset: 06-26-2024 06-26-2024 Episodic Other nutritional; endocrine; and metabolic disorders (13 sources) Obese class I; Translations: [Obesity, unspecified] Onset: 11-07-2022 11-07-2022 Chronic Other nutritional; endocrine; and metabolic disorders (1 source) Drug-induced obesity; Translations: [Drug-induced obesity] 06-26-2024 Chronic Other nutritional; endocrine; and metabolic disorders (1 source) Drug-induced obesity; Translations: [Class 1 drug-induced obesity with serious comorbidity and body mass index (BMI) of 30.0 to 30.9 in adult] Onset: 06-26-2024 Chronic Other nutritional; endocrine; and metabolic disorders (1 source) Body mass index (BMI) 30.0-30.9, adult; Translations: [Class 1 drug-induced obesity with serious comorbidity and body mass index (BMI) of 30.0 to 30.9 in adult] Onset: 06-26-2024 Chronic Residual codes; unclassified (4 sources) H/O: Disorder; Translations: [Personal history of other specified conditions] Onset: 08-11-2024 08-11-2024 Episodic Tuberculosis (5 sources) Personal history of tuberculosis; Translations: [H/O: tuberculosis] Onset: 08-10-2024 08-11-2024 Episodic Past or Other Problems Problem Classification Problem Date Documented Da te Episodic/Chronic Other gastrointestinal disorders (5 sources) Ascites; Translations: [Other ascites] Onset: 08-28-2023 07-05-2023 Episodic Other liver diseases (2 sources) Hepatic failure, unspecified without coma; Translations: [Hepatic failure, unspecified without coma] Onset: 01-02-2024 Episodic Results Test Name Value Interpretation Reference Range Facility CT ABD/PEL W IVCONon 024 CT ABD/PEL W IVCON * * *Final Report* * * DATE OF EXAM: Aug 12 2024 12:53PM [facility] [place] ABD/PEL W IVCON / PROCEDURE REASON: multiple diagnoses * * * * Physician Interpretation * * * * EXAMINATION: CT ABDOMEN AND PELVIS WITH IV CONTRAST CLINICAL HISTORY: History of latent TB and HARRISON cirrhosis. Referred to IR for evaluation of TIPS procedure. CT ordered prior to procedure to assess anatomy. TECHNIQUE: CT of the abdomen and pelvis was performed using standard technique, scanning from just above the dome of the diaphragm to the symphysis pubis. MQ: CTAP_3 Contrast: IV: 100 ml of Omnipaque 350 CT Radiation dose: Integrated Dose-length product (DLP) for this visit = 331 mGy*cm. CT Dose Reduction Employed: Automated exposure control(AEC) and iterative recon COMPARISON: None. RESULT: Liver: Cirrhotic morphology. Biliary: No bile duct dilation. Gallbladder is not well seen given ascites in the gallbladder fossa. Spleen: No mass. Enlarged spleen measuring 14.7 cm in the craniocaudal dimension. Pancreas: No mass or duct dilation. Adrenals: No mass. Kidneys: No mass, calculus or hydronephrosis. GI tract: No wall thickening. Colonic diverticulosis. Normal appendix. Possible right colonic wall thickening may relate to portal colopathy. Lymph nodes: No abdominal or pelvic lymphadenopathy. Mesentery/Peritoneum : Large volume ascites. No mass. Retroperitoneum: No mass. Vasculature: - Abdominal aorta and iliac arteries: No aneurysm. - Celiac and SMA: Patent without stenosis. - Portal venous system (SMV, splenic vein, portal vein and branches): Chronic appearing nonocclusive thrombus at the superior SMV/proximal main portal vein. Otherwise patent with portosystemic venous collaterals. - Hepatic veins: Patent. Pelvis: No mass or organized fluid collection. Ascites. Bones/Soft Tissues: Moderate to large umbilical hernia containing fat and loculated ascites. Small bilateral inguinal hernias containing ascitic fluid. Body wall anasarca. Degenerative changes. Lower thorax: Volume loss of the visualized right lower lobe with severe cystic bronchiectatic change. Unremarkable left lung. Calcified mediastinal nodes. Localizer images: No additional findings. IMPRESSION: Cirrhosis with sequelae of portal hypertension including splenomegaly, large volume ascites, and portosystemic collaterals. Chronic appearing nonocclusive thrombus at the portosplenic confluence. Otherwise patent hepatic vasculature. Moderate umbilical hernia containing fat and ascites. Program Coordinator Executive Education: [facility] Transcribe Date/Time: Aug 12 2024 2:29P Dictated by : OTTONIEL CARMONA MD This examination was interpreted and the report reviewed and electronically signed by: EFE LEO MD on Aug 12 2024 3:45PM EST [id number] CN Normal [facility] CT Abdomen and Pelvis W cont rast Narciso 08-12-2024 IMPRESSION: Cirrhosis with sequelae of portal hypertension including splenomegaly, large volume ascites, and portosystemic collaterals. Chronic appearing nonocclusive thrombus at the portosplenic confluence. Otherwise patent hepatic vasculature. Moderate umbilical hernia containing fat and ascites. Program Coordinator Executive Education: [facility] Transcribe Date/Time: Aug 12 2024 2:29P Dictated by : OTTONIEL CARMONA MD This examination was interpreted and the report reviewed and electronically signed by: EFE LEO MD on Aug 12 2024 3:45PM [facility] DIVISION OF RADIOLOGY * * *Final Report* * * DATE OF EXAM: Aug 12 2024 12:53PM [facility] [place] CT ABD/PEL W IVCON / PROCEDURE REASON: multiple diagnoses * * * * Physician Interpretation * * * * EXAMINATION: CT ABDOMEN AND PELVIS WITH IV CONTRAST CLINICAL HISTORY: History of latent TB and HARRISON cirrhosis. Referred to IR for evaluation of TIPS procedure. CT ordered prior to procedure to assess anatomy. TECHNIQUE: CT of the abdomen and pelvis was performed using standard technique, scanning from just above the dome of the diaphragm to the symphysis pubis. MQ: CTAP_3 Contrast: IV: 100 ml of Omnipaque 350 CT Radiation dose: Integrated Dose-length product (DLP) for this visit = 331 mGy*cm. CT Dose Reduction Employed: Automated exposure control(AEC) and iterative recon COMPARISON: None. RESULT: Liver: Cirrhotic morphology. Biliary: No bile duct dilation. Gallbladder is not well seen given ascites in the gallbladder fossa. Spleen: No mass. Enlarged spleen measuring 14.7 cm in the craniocaudal dimension. Pancreas: No mass or duct dilation. Adrenals: No mass. Kidneys: No mass, calculus or hydronephrosis. GI tract: No wall thickening. Colonic diverticulosis. Normal appendix. Possible right colonic wall thickening may relate to portal colopathy. Lymph nodes: No abdominal or pelvic lymphadenopathy. Mesentery/Peritoneum : Large volume ascites. No mass. Retroperitoneum: No mass. Vasculature: - Abdominal aorta and iliac arteries: No aneurysm. - Celiac and SMA: Patent without stenosis. - Portal venous system (SMV, splenic vein, portal vein and branches): Chronic appearing nonocclusive thrombus at the superior SMV/proximal main portal vein. Otherwise patent with portosystemic venous collaterals. - Hepatic veins: Patent. Pelvis: No mass or organized fluid collection. Ascites. Bones/Soft Tissues: Moderate to large umbilical hernia containing fat and loculated ascites. Small bilateral inguinal hernias containing ascitic fluid. Body wall anasarca. Degenerative changes. Lower thorax: Volume loss of the visualized right lower lobe with severe cystic bronchiectatic change. Unremarkable left lung. Calcified mediastinal nodes. Localizer images: No additional findings. DIVISION OF RADIOLOGY Provider, [facility] - 08/12/2024 * * *Final Report* * * DATE OF EXAM: Aug 12 2024 12:53PM [facility] [place] - CT ABD/PEL W IVCON / PROCEDURE REASON: multiple diagnoses * * * * Physician Interpretation * * * * EXAMINATION: CT ABDOMEN AND PELVIS WITH IV CONTRAST CLINICAL HISTORY: History of latent TB and HARRISON cirrhosis. Referred to IR for evaluation of TIPS procedure. CT ordered prior to procedure to assess anatomy. TECHNIQUE: CT of the abdomen and pelvis was performed using standard technique, scanning from just above the dome of the diaphragm to the symphysis pubis. MQ: CTAP_3 Contrast: IV: 100 ml of Omnipaque 350 CT Radiation dose: Integrated Dose-length product (DLP) for this visit = 331 mGy*cm. CT Dose Reduction Employed: Automated exposure control(AEC) and iterative recon COMPARISON: None. RESULT: Liver: Cirrhotic morphology. Biliary: No bile duct dilation. Gallbladder is not well seen given ascites in the gallbladder fossa. Spleen: No mass. Enlarged spleen measuring 14.7 cm in the craniocaudal dimension. Pancreas: No mass or duct dilation. Adrenals: No mass. Kidneys: No mass, calculus or hydronephrosis. GI tract: No wall thickening. Colonic diverticulosis. Normal appendix. Possible right colonic wall thickening may relate to portal colopathy. Lymph nodes: No abdominal or pelvic lymphadenopathy. Mesentery/Peritoneum : Large volume ascites. No mass. Retroperitoneum: No mass. Vasculature: - Abdominal aorta and iliac arteries: No aneurysm. - Celiac and SMA: Patent without stenosis. - Portal venous system (SMV, splenic vein, portal vein and branches): Chronic appearing nonocclusive thrombus at the superior SMV/proximal main portal vein. Otherwise patent with portosystemic venous collaterals. - Hepatic veins: Patent. Pelvis: No mass or organized fluid collection. Ascites. Bones/Soft Tissues: Moderate to large umbilical hernia containing fat and loculated ascites. Small bilateral inguinal hernias containing ascitic fluid. Body wall anasarca. Degenerative changes. Lower thorax: Volume loss of the visualized right lower lobe with severe cystic bronchiectatic change. Unremarkable left lung. Calcified mediastinal nodes. Localizer images: No additional findings. IMPRESSION IMPRESSION: Cirrhosis with sequelae of portal hypertension including splenomegaly, large volume ascites, and portosystemic collaterals. Chronic appearing nonocclusive thrombus at the portosplenic confluence. Otherwise patent hepatic vasculature. Moderate umbilical hernia containing fat and ascites. Program Coordinator Executive Education: PSCB Transcribe Date/Time: Aug 12 2024 2:29P Dictated by : OTTONIEL CARMONA MD This examination was interpreted and the report reviewed and electronically signed by: EFE LEO MD on Aug 12 2024 3:45PM EST [facility] Radiology Study observation (narrative) [facility] CT Abdomen and Pelvis W cont rast IVOrdered By: Ccf Provider on 08-12-2024 [facility] CBC panel Auto (Bld)on 08-11 Erythrocyte distribution width (RBC) [Ratio] 13.6 % Normal 11.5-15.0 [facility] Comment on above: Order Comment: Speci men Type: BLOOD SPECIMEN Ordering Facility: [facility] Address: [address] [place] [address] Performed By: #### T SCR30 #### [facility] CLIA [id number] [address] [place] [address] [place] Hematocrit (Bld) [Volume fraction] 31.4 % Low 36.0-46.0 [facility] Comment on above: Order Comment: Speci men Type: BLOOD SPECIMEN Ordering Facility: [facility] Address: [address] [place] [address] Performed By: #### T SCR30 #### [facility] CLIA [id number] [address] [place] [address] [place] Hemoglobin (Bld) [Mass/Vol] 10.1 g/dL Low 11.5-15.5 [facility] Comment on above: Order Comment: Speci men Type: BLOOD SPECIMEN Ordering Facility: [facility] Address: [address] [place] [address] Performed By: #### T SCR30 #### [facility] CLIA [id number] [address] [place] [address] [place] MCH (RBC) [Entitic mass] 32.0 pg Normal 26.0-34.0 [facility] Comment on above: Order Comment: Speci men Type: BLOOD SPECIMEN Ordering Facility: [facility] Address: [address] [place] [address] Performed By: #### T SCR30 #### [facility] CLIA [id number] [address] [place] [address] [place] MCHC (RBC) [Mass/Vol] 32.2 g/dL Normal 30.5-36.0 [facility] Comment on above: Order Comment: Speci men Type: BLOOD SPECIMEN Ordering Facility: [facility] Address: [address] [place] [address] Performed By: #### T SCR30 #### [facility] CLIA [id number] [address] [place] [address] [place] MCV (RBC) [Entitic vol] 99.4 fL Normal 80.0-100.0 [facility] Comment on above: Order Comment: Speci men Type: BLOOD SPECIMEN Ordering Facility: [facility] Address: [address] [place] [address] Performed By: #### T SCR30 #### [facility] CLIA [id number] [address] [place] [address] [place] Nucleated RBC (Bld) [#/Vol] 10*3/uL Normal <0.01 [facility] Comment on above: Order Comment: Speci men Type: BLOOD SPECIMEN Ordering Facility: [facility] Address: [address] [place] [address] Performed By: #### T SCR30 #### [facility] CLIA [id number] [address] [place] [address] [place] Platelet mean volume (Bld) [Entitic vol] 10.4 fL Normal 9.0-12.7 [facility] Comment on above: Order Comment: Speci men Type: BLOOD SPECIMEN Ordering Facility: [facility] Address: [address] [place] [address] Performed By: #### T SCR30 #### [facility] CLIA [id number] [address] [place] [address] [place] Platelets (Bld) [#/Vol] 102 10*3/uL Low 150-400 [facility] Comment on above: Order Comment: Speci men Type: BLOOD SPECIMEN Ordering Facility: [facility] Address: [address] [place] [address] Performed By: #### T SCR30 #### [facility] CLIA [id number] [address] [place] [address] [place] RBC (Bld) [#/Vol] 3.16 10*6/uL Low 3.90-5.20 [facility] Comment on above: Order Comment: Speci men Type: BLOOD SPECIMEN Ordering Facility: [facility] Address: [address] [place] [address] Performed By: #### T SCR30 #### [facility] CLIA [id number] [address] [place] [address] [place] WBC (Bld) [#/Vol] 4.26 10*3/uL Normal 3.70-11.00 [facility] Comment on above: Order Comment: Speci men Type: BLOOD SPECIMEN Ordering Facility: [facility] Address: [address] [place] [address] Performed By: #### T SCR30 #### [facility] CLIA [id number] [address] [place] [address] [place] CONFIRM BLOOD TYPEon 024 ABO O Normal [facility] Comment on above: Order Comment: Speci men Type: BLOOD SPECIMEN Ordering Facility: [facility] Address: [address] [place] [address] Performed By: #### C ONABO #### [facility] CLIA [id number] [address] [place] [address] [place] Rh Nom (Bld) Positive Normal [facility] Comment on above: Order Comment: Speci men Type: BLOOD SPECIMEN Ordering Facility: [facility] Address: [address] [place] [address] Performed By: #### C ONABO #### [facility] CLIA [id number] [address] [place] [address] [place] Comprehensive metabolic 2000 panelon 08-11-2024 Albumin [Mass/Vol] 3.0 g/dL Low 3.9-4.9 [facility] Comment on above: Order Comment: Speci men Type: BLOOD SPECIMEN Ordering Facility: [facility] Address: [address] [place] [address] Performed By: #### T SCR30 #### [facility] CLIA [id number] [address] [place] [address] [place] ALP [Catalytic activity/Vol] 178 U/L High 34-123 [facility] Comment on above: Order Comment: Speci men Type: BLOOD SPECIMEN Ordering Facility: [facility] Address: [address] [place] [address] Performed By: #### T SCR30 #### [facility] CLIA [id number] [address] [place] [address] [place] ALT [Catalytic activity/Vol] 14 U/L Normal 7-38 [facility] Comment on above: Order Comment: Speci men Type: BLOOD SPECIMEN Ordering Facility: [facility] Address: [address] [place] [address] Performed By: #### T SCR30 #### [facility] CLIA [id number] [address] [place] [address] [place] Anion gap [Moles/Vol] 7 mmol/L Low 8-15 [facility] Comment on above: Order Comment: Speci men Type: BLOOD SPECIMEN Ordering Facility: [facility] Address: [address] [place] [address] Performed By: #### T SCR30 #### [facility] CLIA [id number] [address] [place] [address] [place] AST [Catalytic activity/Vol] 26 U/L Normal 13-35 [facility] Comment on above: Order Comment: Speci men Type: BLOOD SPECIMEN Ordering Facility: [facility] Address: [address] [place] [address] Performed By: #### T SCR30 #### [facility] CLIA [id number] [address] [place] [address] [place] Bilirubin [Mass/Vol] 1.8 mg/dL High 0.2-1.3 [facility] Comment on above: Order Comment: Speci men Type: BLOOD SPECIMEN Ordering Facility: [facility] Address: [address] [place] [address] Performed By: #### T SCR30 #### [facility] CLIA [id number] [address] [place] [address] [place] Calcium [Mass/Vol] 7.8 mg/dL Low 8.5-10.2 [facility] Comment on above: Order Comment: Speci men Type: BLOOD SPECIMEN Ordering Facility: [facility] Address: [address] [place] [address] Performed By: #### T SCR30 #### [facility] CLIA [id number] [address] [place] [address] [place] Chloride [Moles/Vol] 105 mmol/L Normal 98-107 [facility] Comment on above: Order Comment: Speci men Type: BLOOD SPECIMEN Ordering Facility: [facility] Address: [address] [place] [address] Performed By: #### T SCR30 #### [facility] CLIA [id number] [address] [place] [address] [place] CO2 [Moles/Vol] 26 mmol/L Normal 22-30 [facility] Comment on above: Order Comment: Speci men Type: BLOOD SPECIMEN Ordering Facility: [facility] Address: [address] [place] [address] Performed By: #### T SCR30 #### [facility] CLIA [id number] [address] [place] [address] [place] Creatinine [Mass/Vol] 0.69 mg/dL Normal 0.58-0.96 [facility] Comment on above: Order Comment: Speci men Type: BLOOD SPECIMEN Ordering Facility: [facility] Address: [address] [place] [address] Performed By: #### T SCR30 #### [facility] CLIA [id number] [address] [place] [address] [place] Creatinine and Glomerular filtration rate.predicted panel (S/P/Bld) 98 mL/min/1.73m??? Normal >=60 [facility] Comment on above: Order Comment: Lincoln fonseca Type: BLOOD SPECIMEN Ordering Facility: [facility] Address: [address] [place] [address] Result Comment: Imladis mated Glomerular Filtration Rate (eGFR) is calculated using the 2020 CKD-EPI creatinine equation. This equation utilizes serum creatinine, sex, and age as parameters. The creatinine assay has traceable calibration to isotope dilution-mass spectrometry. Refer to KDIGO guidelines for clinical interpretation. In patients with unstable renal function, e.g. those with acute kidney injury, the eGFR may not accurately reflect actual GFR. Performed By: #### T SCR30 #### [facility] IA [id number] [address] [place] [address] [place] Glucose [Mass/Vol] 150 mg/dL High 74-99 [facility] Comment on above: Order Comment: Lincoln fonseca Type: BLOOD SPECIMEN Ordering Facility: [facility] Address: [address] [place] [address] Result Comment: The [place] [employer] (ADA) provides guidance for cutoff values for fasting glucose and random glucose. The ADA defines fasting as no caloric intake for at least 8 hours. Fasting plasma glucose results between 100 to 125 mg/dL indicate increased risk for diabetes (prediabetes). Fasting plasma glucose results greater than or equal to 126 mg/dL meet the criteria for diagnosis of diabetes. In the absence of unequivocal hyperglycemia, results should be confirmed by repeat testing. In a patient with classic symptoms of hyperglycemia or hyperglycemic crisis, random plasma glucose results greater than or equal to 200 mg/dL meet the criteria for diagnosis of diabetes. Reference: Standards of Medical Care in Diabetes 2016, [place] [employer]. Diabetes Care. 2016.39(Suppl 1). Performed By: #### T SCR30 #### [facility] CLIA [id number] [address] [place] [address] [place] Potassium [Moles/Vol] 4.9 mmol/L Normal 3.7-5.1 [facility] Comment on above: Order Comment: Lincoln fonseca Type: BLOOD SPECIMEN Ordering Facility: [facility] Address: [address] [place] [address] Performed By: #### T SCR30 #### [facility] CLIA [id number] [address] [place] [address] [place] Protein [Mass/Vol] 6.0 g/dL Low 6.3-8.0 [facility] Comment on above: Order Comment: Speci men Type: BLOOD SPECIMEN Ordering Facility: [facility] Address: [address] [place] [address] Performed By: #### T SCR30 #### [facility] CLIA [id number] [address] [place] [address] [place] Sodium [Moles/Vol] 138 mmol/L Normal 136-144 [facility] Comment on above: Order Comment: Speci men Type: BLOOD SPECIMEN Ordering Facility: [facility] Address: [address] [place] [address] Performed By: #### T SCR30 #### [facility] CLIA [id number] [address] [place] [address] [place] Urea nitrogen [Mass/Vol] 19 mg/dL Normal 7-21 [facility] Comment on above: Order Comment: Speci men Type: BLOOD SPECIMEN Ordering Facility: [facility] Address: [address] [place] [address] Performed By: #### T SCR30 #### [facility] CLIA [id number] [address] [place] [address] [place] HISTORY PHYSICALon HISTORY PHYSICAL HNO ID: [id number] Author: ROSALEE VALENCIA APRN.CNP Service: ? 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 Robbins Received weekly paracentesis On spironolactone, torsemide and lactulose Ron Activity Status Index: METS: Walk indoors, such as around the house (1.75 METs) Do light work around the house, such as dusting or washing dishes (2.70 METs) Take care of self; that is eating, dressing, bathing, using the toilet (2.75 METs) Walk a block or two on level ground (2.75 METs) Climb a flight of stairs or walk up a hill (5.50 METs) DASI Score: 15.45 Patient denies any chest pain or undue shortness of breath with the above physical activity. Clinical Frailty Scale: 3. Well, with treated comorbid disease STOP-Bang Score: Patient over 50 years old Male patient Denies snoring loudly Denies feeling tired, fatigued, or sleepy during the daytime Has not been observed to stop breathing or choking/gasping during sleep Denies having high blood pressure BMI less than or equal to 35 kg/m2 Does not have a large neck STOP-Bang Score: 2 [id number] Score: Age: <65 Sex: female CHF history: No Hypertension history: No Stroke/TIA/thromboem bolism history: No Vascular disease history: No Diabetes history: No [id number] Score: 1 ARISCAT Score: Age: 51-80 Preoperative SpO2: >=96% Respiratory infection in the last month: No Preoperative anemia: Yes Duration of surgery: >3 hrs Emergency procedure: No ARISCAT Score: ANESTHESIA FINDINGS: Intubation History: No abnormal airway history Significant Anesthesia Considerations: none Airway History: No abnormal airway history I - PHYSICAL EVALUATION AIRWAY Patient intubated: No. Tracheostomy tube not present Mallampati: II. TM distance: >3 FB. Neck ROM: full ROM without neurological symptoms. Mouth opening: adequate. Short neck: no. Thick neck: no Garcia present: no Lip Bite Test: I DENTAL Dental findings: missing tooth/teeth. Additional comments: Several missing upper and lower . II - ANESTHESIA PLAN Anesthetic Plan: other Beta Tomi Monitoring Plan Post Procedure Analgesic Plan Prepared for Surgery: optimally prepared for surgery, pending [see comment]. Type and Screen, CMP, CBC (ordered by surgery), CONABO and DOS exam. CONSULTS: Patient does not require consults for optimization at this time Planned Anesthetic: other The Following Tests/Procedures Have Been Initiated: Orders Placed This Encounter Confirm Blood Type Standing Status: Future Number of Occurrences: 1 Standing Expiration Date: 11/10/2024 Order Specific Question: Did Blood Bank direct you to place this order: Answer: No - Presurgical Workflow midodrine (PROAMITINE) 5 mg tablet Sig: Take 1 tablet by mouth three times a day. REASON FOR VISIT: Madhavi Avalos is a 64 year old female who is scheduled for Procedure(s) with comments: INSERT TIPS SHUNT STENT (N/A) - TIPS W/ VINETE (PORSHA) PER SHERRI Benítez at the request of Awa Schneider MD for consultation. My final recommendation will be communicated back to the requesting physician by way of shared medical record or letter. Subjective The patient has the following: COVID-19 Immunization Status Overdue - Covid-19 Vaccine ( season) Never done No completion, postpone, frequency change, or communication history exists for this topic. CHIEF COMPLAINT: Pre-Op Visit HPI: 64 year old female who has Cirrhosis of liver with ascites seen for PACC. Diagnosed with cirrhosis in 2020. She complains of abdominal pain that increases with coughing and movement. She has ascites that has been difficult to control with diuretics and LVPs. She has recurrent Ascites with weekly paracentesis despite diuretics. HH and is s/p Thoracentesis X1 on 11/2023. Scheduled for INSERT TIPS SHUNT STENT (N/A) - TIPS W/ GEN on 09/09/24. Denies any fever, chills, nausea, vomiting, SOB, dizziness, lightheadedness, palpitations, syncope, chest pain or abdominal pain. She has elected to proceed with the surgical procedure. REVIEW OF SYSTEMS: General: No weight loss, malaise or fevers. Neurological: No history of TIA's, stroke, CN (more content not included)... Normal [facility] PT panel Coag (PPP)on 2023 INR Coag (PPP) [Relative time] 1.4 {INR} High 0.9-1.3 [facility] Comment on above: Order Comment: Lincoln fonseca Type: BLOOD SPECIMEN Ordering Facility: [facility] Address: [address] [place] [address] Result Comment: Soledad min K Antagonist (VKA) Therapeutic Range: INR 2 to 3 (Target INR of 2.5) Note: For patients treated with VKA drugs, such as warfarin, the [place] [employer] 2012 Guideline recommends a therapeutic INR range of 2 to 3 (target INR of 2.5). This recommendation includes high-risk patients with antiphospholipid syndrome with previous arterial or venous thromboembolism, current-generation mechanical or bioprosthetic aortic heart valve replacement. Note: Patients with mechanical aortic valve replacement and additional risk factors for thromboembolic events (atrial fibrillation, previous thromboembolism, LV dysfunction, hypercoagulable conditions) or an older generation mechanical AVR (i.e., ball in-Cage) or any mechanical MVR should have a INR therapeutic range of 2.5 to 3.5 (target INR of 3). Marentt GH, et al. Chest 2012, 141:7S-47S Ricky RA, et al. JAC 2017, 70: 252-289 Performed By: #### T SCR30 #### CC [facility] BLOOD BANK [facility] [id number] [address] [place] [address] [place] PT Coag (PPP) [Time] 14.5 s High 9.7-13.0 [facility] Comment on above: Order Comment: Lincoln fonseca Type: BLOOD SPECIMEN Ordering Facility: [facility] Address: [address] [place] [address] Performed By: #### T SCR30 #### CC MAIN BLOOD BANK CLIA [id number] [address] [place] [address] [place] TYPE AND SCREEN,30 DAYon ABO O Normal [facility] Comment on above: Order Comment: Speci men Type: BLOOD SPECIMEN Ordering Facility: [facility] Address: [address] [place] [address] Performed By: #### T SCR30 #### [facility]LOOD [facility] CLIA [id number] [address] [place] [address] [place] Rh Nom (Bld) Positive Normal [facility] Comment on above: Order Comment: Speci men Type: BLOOD SPECIMEN Ordering Facility: [facility] Address: [address] [place] [address] Performed By: #### T SCR30 #### [facility]LOOD BANK CLIA [id number] [address] [place] [address] [facility] Naeem 08-05-2024 FRED Telephone (KATERINE) MADHAVI FLOWER ([id number]* 1960 F [place] Date Time Provider Department 08/05/24 AWA REILLY During your visit today, we recorded the following information about you: Sherri Martinez APRN.CNP 08/05/2024 3:55 PM Signed INTERVENTIONAL RADIOLOGY PATIENT APPOINTMENT REQUEST August 05, 2024 Madhavi Avalos [id number] Request: Schedule Requestor: Sherri Martinez APRN.CNP Ref.Physician:Dr. Parmjit ANN Physician: Dr. Reilly Procedure/Request: TIPS Reason/ICD Code: hepatic cirrhosis with ascites Priority: routine Scheduling Comments: please schedule patient for TIPS procedure. Please schedule patient for labs and CT scan CONNIE. Please schedule for PACC appt. Does MD need to be present for consult?: N/A IR Procedure Room: To be scheduled in any room except 20 Equipment or Vendor Request: No / N/A Anticipated length of procedure (not including prep or Anesthesia): 4 hours Pre-Procedure Orders: Labs CBC, CMP, T/S, INR CT ABD/PEL PACE/IMPACT Sedation: General Anesthesia Bed Reservation: Yes G100 Location of Procedure: [facility] [place] Juanis Garcia 08/06/2024 2:21 PM Addendum SCHEDULED PACC ON 08/11 CT ON 08/12 LABS ON 08/12 PROCEDURE ON 09/09 NATHANIEL Moreno/ [facility] [address] [address] A P MANAGER ON 08/06 TO GET IN TOUCH WITH PT, SHE LEFT PT A VOICEMAIL REGARDING APPOINTMENTS Allergies As of Date: 08/05/2024 (Not on File) Date Reviewed: 08/05/2024 Reviewed by: Sherri Martinez APRN.SENIOR REPORT DEVELOPER - Fully Assessed Reason for Visit: Appointment [186] Prescriptions as of 08/06/2024 - lactulose 10 gram/15 mL solution Take 20 g by mouth three times a day. - iv contrast (will be provided with radiology test) CT ABD/PEL -Inject, intravenously, once for 1 dose.No IV access, insert saline lock prior to the beginning of sedation, infusion, injection of imaging exam. Discontinue saline lock post exam. If Pt. has a central line or IVAD, may access for administration according to line specific nursing protocol. Once exam is complete flush line and de-access according to line specific nursing protocol in the CT contrast administration guidelines link. - albuterol HFA (PROVENTIL HFA, VENTOLIN HFA) 90 mcg/actuation inhaler Inhale 2 Puffs as instructed. - ciprofloxacin HCl (CIPRO) 500 mg tablet Take 1 tablet by mouth every 12 hours. - metroNIDAZOLE (FLAGYL) 500 mg tablet Take 500 mg by mouth three times a day. - cyclobenzaprine (FLEXERIL) 5 mg tablet Take 5 mg by mouth every 8 hours as needed. - oxyCODONE ir (OXYIR) 5 mg capsule TAKE 1 CAPSULE BY MOUTH EVERY 6 HOURS NEEDED FOR PAIN - spironolactone (ALDACTONE) 100 mg tablet Take 3 tablets by mouth every afternoon. - torsemide (DEMADEX) 20 mg tablet TAKE 2 TABLETS BY MOUTH IN THE MORNING AND 1 IN THE EVENING - ondansetron (ZOFRAN) 4 mg tablet Take by mouth every 8 hours as needed for nausea/vomiting. - promethazine HCl (PROMETHAZINE ORAL) Take by mouth. Problem List As Of Date: 08/05/2024 (None) Encounter Status:Closed by JUANIS GARCIA on 08/06/24 Normal [facility] HISTORY PHYSICALon HISTORY PHYSICAL HNO ID: [id number] Author: SHERRI MARTINEZ APRN.FELICIA Service: ? Author Type: Nurse Practitioner Type: H&P Filed: 08/05/2024 15:53 Note Text: INTERVENTIONAL RADIOLOGY SERVICE CONSULT NOTE SERVICE DATE: 08/05/24 SERVICE TIME: 8:00 AM PRIMARY CARE PHYSICIAN: Darlene Garibay MD Consultation requested by Dr. Robbins for an opinion regarding TIPS. Final recommendations will be communicated back to the requesting physician by way of shared Medical record or letter to requesting physician via US mail. HPI: Madhavi Avalos is a 64 year old female with a PMHx of latent TB (s/p rifampin tx for 3 months), obesity, s/p cholecystectomy 2021, and HARRISON cirrhosis. She has a hx of ascites now requiring bi-weekly paracentesis for the past 12 months, and weekly paracentesis for the past 10 months as well as management with spironolactone, lasix, and torsemide. Hx of HE, taking lactulose 3-4x per day. Hx of grade 3 EV s/p banding 10/2022. Last EGD done on 02/04/2424 grade 1 and large EV with no bleeding. On 08/29/23, TIPS was attempted at [facility], but was aborted due inability to advance the sheath into the right hepatic vein Patient presents today with her daughter. email marketing executive present throughout entire visit ([facility] telephone freight trucker). Patient states that she has had trouble with ascites for the past year. She began requiring paracentesis every 2 weeks about one year ago, but for the past 10 months, she has required weekly ema. She states that they drained 6-7L during her last paracentesis. States that she has a large umbilical hernia that causes discomfort, but denies any other abdominal pain at this time. Denies confusion or HE, currently taking lactulose 3-4x per day. Denies hematemesis. The patient is referred to Interventional Radiology for evaluation regarding a TIPS procedure. Complications of Cirrhosis: Ascites: Yes Usual paracentesis schedule Yes - weekly Non-bleeding varices: Yes Variceal hemorrage: No Varices managed by beta blockers and banding. Yes - banding 10/2022 Portosystemic encephalopathy: No - taking lactulose 3-4x per day Hepatic hydrothorax: No Recurrent Cholangitis (PSC): No Early satiety Yes - decreased appetite also Abdominal discomfort/sx No Jaundice itching No HISTORY REVIEWED (electronic chart updated): No past medical history on file. No past surgical history on file. No family history on file. Current Outpatient Medications Medication Sig albuterol HFA (PROVENTIL HFA, VENTOLIN HFA) 90 mcg/actuation inhaler Inhale 2 Puffs as instructed. ciprofloxacin HCl (CIPRO) 500 mg tablet Take 1 tablet by mouth every 12 hours. metroNIDAZOLE (FLAGYL) 500 mg tablet Take 500 mg by mouth three times a day. cyclobenzaprine (FLEXERIL) 5 mg tablet Take 5 mg by mouth every 8 hours as needed. oxyCODONE ir (OXYIR) 5 mg capsule TAKE 1 CAPSULE BY MOUTH EVERY 6 HOURS NEEDED FOR PAIN spironolactone (ALDACTONE) 100 mg tablet Take 3 tablets by mouth every afternoon. torsemide (DEMADEX) 20 mg tablet TAKE 2 TABLETS BY MOUTH IN THE MORNING AND 1 IN THE EVENING ondansetron (ZOFRAN) 4 mg tablet Take by mouth every 8 hours as needed for nausea/vomiting. promethazine HCl (PROMETHAZINE ORAL) Take by mouth. No current facility-administere d medications for this visit. ALLERGIES Not on File REVIEW OF SYSTEMS: See HPI: Remaining ROS reviewed and negative unless otherwise noted in HPI. PHYSICAL EXAMINATION: BP 95/52 Pulse 100 Wt 78 kg (171 lb 15.3 oz) SpO2 97% BMI 32.49 kg/m? General appearance: Well appearing, alert, in no acute distress, well-hydrated, well nourished. Skin: Skin color, texture, turgor normal, no suspicious rashes or lesions Eyes: Anicteric sclera Lungs: Lungs clear to auscultation. No wheezing, rhonchi, rales. Heart: RRR without murmur, gallop, or rubs. No ectopy Abdomen: large umbilical hernia. No pain on palpation of abdomen Extremities: No deformities, skin discoloration, or cyanosis. BLE edema. Peripheral pulses: Normal Neuro: Gait normal. Sensation grossly intact. DATA: Diagnostic tests reviewed for today's visit: Most recent labs and imaging results. - Labs 04/14/24: Tbili 2.8, Alk Phos 143, Albumin 3.0, AST 28, ALT 19, INR 1.6, Hgb 11.2, Hct 35.0, Platelets 121, BUN 34, Creatinine 0.74, GFR 90, AFP <2.2 CT ABD/PEL 07/05/23: IMPRESSION: 1. Cirrhosis with stigmata of portal hypertension, including splenomegaly, large ascites and portosystemic collaterals. 2. Moderate umbilical hernia containing fat and loculated ascites. 3. Partial visualization of severe bronchiectatic changes in the right lower lobe with bronchial wall thickening and volume loss. ECHO 08/27/23: Very technically challenging study despite the use of contrast. Poor apical windows Overall, suspect normal left ventricular size and systolic function. LVEF of approximately 55-60%. Normal diastolic function Right sided chamb (more content not included)... [facility] (GASTA5[facility] MADHAVI FLOWER ([id number]* 1960 F INT Date Time Provider Department 07/03/24 XIAO NEFF GASTA5 During your visit today, we recorded the following information about you: Xiao Neff MD 07/03/2024 11:27 AM Signed Called the patient, she didn't worm picker. Called daughter and spoke with her [phone] and she will bring her for IR evaluation for TIPS procedure. Gave her the appointment line. Also told her that her mom doesn't qualify for a liver transplant at [facility] at this moment. Xiao Neff (click to page) PGY-4 Gastroenterology AND Hepatology July 03, 2024 11:25 AM Allergies As of Date: 07/03/2024 (Not on File) Date Reviewed: Never Reviewed Reason for Visit: Patient Update [1234] Cmt: Needs TIPS evaluation Prescriptions as of 07/03/2024 - albuterol HFA (PROVENTIL HFA, VENTOLIN HFA) 90 mcg/actuation inhaler Inhale 2 Puffs as instructed. - ciprofloxacin HCl (CIPRO) 500 mg tablet Take 1 tablet by mouth every 12 hours. - metroNIDAZOLE (FLAGYL) 500 mg tablet Take 500 mg by mouth three times a day. - cyclobenzaprine (FLEXERIL) 5 mg tablet Take 5 mg by mouth every 8 hours as needed. - oxyCODONE ir (OXYIR) 5 mg capsule TAKE 1 CAPSULE BY MOUTH EVERY 6 HOURS NEEDED FOR PAIN - spironolactone (ALDACTONE) 100 mg tablet Take 3 tablets by mouth every afternoon. - torsemide (DEMADEX) 20 mg tablet TAKE 2 TABLETS BY MOUTH IN THE MORNING AND 1 IN THE EVENING - ondansetron (ZOFRAN) 4 mg tablet Take by mouth every 8 hours as needed for nausea/vomiting. - promethazine HCl (PROMETHAZINE ORAL) Take by mouth. Problem List As Of Date: 07/03/2024 (None) Encounter Status:Closed by XIAO NEFF on 07/03/24 [facility] MADHAVI FLOWER ([id number]* 1960 F INT Date Time Provider Department 07/02/24 ALVINO ROBBINS GASTA5 During your visit today, we recorded the following information about you: Ana Cristina Albert RN 07/02/2024 3:12 PM Addendum Pt not transplant eligible due to no insurance coverage for transplant. TIPS consult order pended for review. Ana Cristina Albert RN July 02, 2024 3:10 PM Order reviewed and signed. Tried calling [phone] to update the patient, she didn't pickup. Xiao Neff (click to page) PGY-4 Gastroenterology AND Hepatology July 03, 2024 7:23 AM Allergies As of Date: 07/02/2024 (Not on File) Date Reviewed: Never Reviewed Primary Visit Diagnosis: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 (HCC) [K75.81, K74.60] Order(s):IR INTERVENTIONAL CONSULT [[id number]] Order #: [id number] Prescriptions as of 07/03/2024 - albuterol HFA (PROVENTIL HFA, VENTOLIN HFA) 90 mcg/actuation inhaler Inhale 2 Puffs as instructed. - ciprofloxacin HCl (CIPRO) 500 mg tablet Take 1 tablet by mouth every 12 hours. - metroNIDAZOLE (FLAGYL) 500 mg tablet Take 500 mg by mouth three times a day. - cyclobenzaprine (FLEXERIL) 5 mg tablet Take 5 mg by mouth every 8 hours as needed. - oxyCODONE ir (OXYIR) 5 mg capsule TAKE 1 CAPSULE BY MOUTH EVERY 6 HOURS NEEDED FOR PAIN - spironolactone (ALDACTONE) 100 mg tablet Take 3 tablets by mouth every afternoon. - torsemide (DEMADEX) 20 mg tablet TAKE 2 TABLETS BY MOUTH IN THE MORNING AND 1 IN THE EVENING - ondansetron (ZOFRAN) 4 mg tablet Take by mouth every 8 hours as needed for nausea/vomiting. - promethazine HCl (PROMETHAZINE ORAL) Take by mouth. Problem List As Of Date: 07/02/2024 (None) Encounter Status:Closed by XIAO NEFF on 07/03/24 [facility] 06-26-2024 CNOV Office Visit (GASTA5) MADHAVI DELGADO ([id number]* 1960 F [place] Date Time Provider Department 06/26/24 10:00 AM ALVINO ROBBINS GASTA5 During your visit today, we recorded the following information about you: Temperature Pulse Blood pressure Weight 98 degrees 88/minute 103/61 74 kg Height 1.549 m Alvino Robbins MD 06/26/2024 11:55 AM Signed Hepatology Clinic [facility] Date of Service: June 26, 2024 Patient: Madhavi Avalos Preceptor: Dr. Robbins History of Present Illness Madhavi Avalso is a 64 year old YO female who presents today (June 26, 2024) to gastroenterology clinic for establishing care for HARRISON cirrhosis and consideration for TIPS for refractory ascites. 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 Here with daughter. She is here for issues with cirrhosis. She sees someone at a local hospital in [place], [place]. This problem started about a year back. The OSH records in care everywhere are not loading. [facility]. Sees Zahraa Tony MD who has been prescribing the medications for her. She has been having ascites for the same during the same time frame of 1.5 years. Now needing weekly paracentesis and is on high dose diuretics. She was admitted for elective TIPS on 08/29, however due to patient's anatomy, size of the liver, length of the right hepatic vein and the angle between the right atrium, IVC and right hepatic vein, it was not possible to advance the sheath into the right hepatic vein. She has epigastric pain for 4 days. Lately in the last few months, 4L/3.5L is being drained, before they used to drain 7L. This is her usual pain 2/2 abdominal distension and umbilical hernia. Last paracentesis Sunday. She has nausea, but no vomiting. No issues with diarrhea. No melena or hematochezia. She denied ETOH use. No smoking. She lost about 55lbs during the last year. Has anyone in your family (grandparents, parents, brothers, sisters, aunts, or uncles) had: Liver problems: No Colitis: No Colon cancer:No Celiac disease: No Lives in [facility], 1.5 hrs away. Lives with family. Works: not working currently She is originally from [facility] [not a Citizen, undergoing [place] process] Patient has no other concerns today. GI workup 11/08/2023 RUQ US Impression: - Fatty infiltration of the liver - Ascites 07/05/2023 CT A/P with Contrast IMPRESSION: 1. [...] study performed due to poor image quality. 02/04/2024 EGD Impression: - Z-line regular, 38 cm from the incisors. - Grade I and large (> 5 mm) esophageal varices with no bleeding and no stigmata of recent bleeding. - Portal hypertensive gastropathy. - Normal examined duodenum. - No specimens collected. 09/11/2023 EGD Impression: - Small (< 5 [...] of the duodenum - No specimens collected Vaccinations Hepatitis A:immunized Hepatitis B:no immunity Review of Systems Review of Systems Constitutional: Negative for chills, diaphoresis, fever, malaise/fatigue and weight loss. HENT: Negative. Eyes: Negative. Respiratory: Positive for shortness of breath. Neg (more content not included)... Normal [facility] CNPNon 05-14-2024 CNPN Telephone (GENSMN) MADHAVI DELGADO ([id number]* 1960 F [place] Date Time Provider Department 05/14/24 AFIA CHAVES During your visit today, we recorded the following information about you: Afia Chaves LPN 05/14/2024 4:42 PM Signed Contacted [employer] ([id number]), spoke with [employer]. Advised of briant needing to be rescheduled with correct provider for Hepatology as patient's appointment scheduled with Liver Surgeon. [employer] attempted to contact patient's mobile line first. Per [employer] mobile phone number is full and unable to leave message. Able to leave message on patient's home and advised to related this message to patient advised scheduled with incorrect provider and will need to to rescheduled with Gastroenterology/Hep atology , option (zero). Appointment to be cancelled as no records or Imaging for patient and unable to reach to discuss. Nurse Coordinator Danica Louie RN advised. Afia Chvaes LPN Allergies As of Date: 05/14/2024 (Not on File) Date Reviewed: Never Reviewed Reason for Visit: Appointment [186] Problem List As Of Date: 05/14/2024 (None) Encounter Status:Closed by AFIA CHAVES on 05/14/24 Normal [facility] AFP TUMOR MARKERon AFP Tumor Marker <2.2 Normal <8.1 [facility] Comment on above: Result Comment: This test was performed on the edulio IM Immunoassay platform by [employer] which is a two-site sandwich chemiluminescent immunoassay. It is important to note that assays using different manufacturers and/or methods may not be comparable. Performed By: #### M GO, CHM7, HFP #### [facility] (DEFAULT) [address] [place] [address] 33400 CBC AND ELECTRONIC DIFFon Abs Baso Auto Normal [facility] Comment on above: Performed By: #### C A, IPB, MGO, CHM7, HFP #### [facility] (DEFAULT) [address] [place] [address] 86857 Abs Eos Auto Normal [facility] Comment on above: Performed By: #### C A, IPB, MGO, CHM7, HFP #### [facility] (DEFAULT) [address] [place] [address] 21476 Abs Lymph Auto Normal [facility] Comment on above: Performed By: #### C A, IPB, MGO, CHM7, HFP #### [facility] (DEFAULT) [address] [place] [address] 96460 Abs [place] Auto Normal [facility] Comment on above: Performed By: #### C A, IPB, MGO, CHM7, HFP #### [facility] (DEFAULT) [address] [place] [address] 08763 Basophil % Auto Normal [facility] Comment on above: Performed By: #### C A, IPB, MGO, CHM7, HFP #### [facility] (DEFAULT) [address] [place] [address] 01740 Eosinophil % Auto Normal [facility] Comment on above: Performed By: #### C A, IPB, MGO, CHM7, HFP #### [facility] (DEFAULT) [address] [place] [address] 76288 Hematocrit (Bld) [Volume fraction] 35.0 % Normal 34.9-44.3 [facility] Comment on above: Performed By: #### C Riccardo, IPB, MGO, CHM7, HFP #### [facility] (DEFAULT) [address] [place] [address] 96635 Hemoglobin (Bld) [Mass/Vol] 11.2 g/dL Low 11.4-15.2 [facility] Comment on above: Performed By: #### C Riccardo, IPB, MGO, CHM7, HFP #### [facility] (DEFAULT) [address] [place] [address] 68845 Immature Grans % Normal [facility] Comment on above: Performed By: #### C Riccardo, IPB, MGO, CHM7, HFP #### [facility] (DEFAULT) [address] [place] [address] 17430 Immature Grans Absolute Normal [facility] Comment on above: Performed By: #### Jackelin Gu, IPB, MGO, CHM7, HFP #### [facility] (DEFAULT) [address] [place] [address] 88738 Lymphocyte % Auto Normal [facility] Comment on above: Performed By: #### C Riccardo, IPB, MGO, CHM7, HFP #### [facility] (DEFAULT) [address] [place] [address] 89801 MCV (RBC) [Entitic vol] 97.5 fL Normal 79.6-97.7 [facility] Comment on above: Performed By: #### C Riccardo, IPB, MGO, CHM7, HFP #### [facility] (DEFAULT) [address] [place] [address] 33011 Mean Cell Hgb 31.2 pg Normal 25.9-33.9 [facility] Comment on above: Performed By: #### C A, IPB, MGO, CHM7, HFP #### [facility] (DEFAULT) [address] [place] [address] 04663 Mean Cell Hgb Conc 32.0 g/dL Normal 31.4-35.9 [facility] Comment on above: Performed By: #### C A, IPB, MGO, CHM7, HFP #### [facility] (DEFAULT) [address] [place] [address] 60292 Monocyte % Auto Normal [facility] Comment on above: Performed By: #### C A, IPB, MGO, CHM7, HFP #### [facility] (DEFAULT) [address] [place] [address] 34672 Platelet mean volume (Bld) [Entitic vol] 10.6 fL Normal 8.5-12.2 [facility] Comment on above: Performed By: #### Jackelin Gu, IPB, MGO, CHM7, HFP #### [facility] (DEFAULT) [address] [place] [address] 46794 Platelets (Bld) [#/Vol] 121 10*3/uL Low 150-393 [facility] Comment on above: Performed By: #### C A, IPB, MGO, CHM7, HFP #### [facility] (DEFAULT) [address] [place] [address] 15427 RBC (Bld) [#/Vol] 3.59 10*6/uL Low 3.91-5.04 [facility] Comment on above: Performed By: #### C A, IPB, MGO, CHM7, HFP #### [facility] (DEFAULT) [address] [place] [address] 79703 RBC Distribution 14.3 % Normal 10.8-14.9 [facility] Comment on above: Performed By: #### C A, IPB, MGO, CHM7, HFP #### [facility] (DEFAULT) [address] [place] [address] 23303 Segs + Bands Auto Normal [facility] Comment on above: Performed By: #### C A, IPB, MGO, CHM7, HFP #### [facility] (DEFAULT) [address] [place] [address] Segs + Bands,Absolute Auto Normal [facility] Comment on above: Performed By: #### C A, IPB, MGO, CHM7, HFP #### [facility] (DEFAULT) [address] [place] [address] WBC (Bld) [#/Vol] 5.97 10*3/uL Normal 3.99-11.19 [facility] Comment on above: Performed By: #### C A, IPB, MGO, CHM7, HFP #### [facility] (DEFAULT) [address] [place] [address] 87878 CHEM 6 (LYTES, BUN CREA)on 0 04-14-2023 Anion gap [Moles/Vol] 10 mmol/L 7 - 17 mmol/L [facility] Chloride [Moles/Vol] 97 mmol/L Low 98 - 10 8 mmol/L [facility] CO2 [Moles/Vol] 31 mmol/L 21 - 31 mmol/L [facility] Creatinine [Mass/Vol] 0.74 mg/dL 0.50 - 1.20 mg/dL [facility] eGFR, CKD-EPI, Female - PINF [facility] Comment on above: Reported eGFR is bas ed on the CKD-EPI 2020 equation using creatinine, age, and sex. Potassium [Moles/Vol] 3.9 mmol/L 3.5 - 5.0 mmol/L [facility] Sodium [Moles/Vol] 134 mmol/L Low 135 - 145 mmol/L [facility] Urea nitrogen [Mass/Vol] 25 mg/dL 7 - 25 mg/dL [facility] Urea nitrogen/Creatinine [Mass ratio] 34 mg/mg [facility] Anion gap [Moles/Vol] 10 mmol/L Normal 7-17 [facility] Comment on above: Performed By: #### C A, IPB, MGO, CHM7, HFP #### [facility] (DEFAULT) [address] [place] [address] 29427 Chloride [Moles/Vol] 97 mmol/L Low 98-108 [facility] Comment on above: Performed By: #### C Riccardo, SAMB, MGO, CHM7, HFP #### [facility] (DEFAULT) [address] [place] [address] 63080 CO2 [Moles/Vol] 31 mmol/L Normal 21-31 [facility] Comment on above: Performed By: #### Jackelin Gu, IPB, MGO, CHM7, HFP #### [facility] (DEFAULT) [address] [place] [address] 50532 Creatinine [Mass/Vol] 0.74 mg/dL Normal 0.50-1.20 [facility] Comment on above: Performed By: #### Jackelin Gu, IPB, MGO, CHM7, HFP #### [facility] (DEFAULT) [address] [place] [address] 16405 eGFR, CKD-EPI, Female > Normal >=60 [facility] Comment on above: Result Comment: Repo rted eGFR is based on the CKD-EPI 2020 equation using creatinine, age, and sex. Performed By: #### Jackelin Gu, SAMB, MGO, CHM7, HFP #### [facility] (DEFAULT) [address] [place] [address] 44578 Potassium [Moles/Vol] 3.9 mmol/L Normal 3.5-5.0 [facility] Comment on above: Performed By: #### Jackelin Gu, IPB, MGO, CHM7, HFP #### [facility] (DEFAULT) [address] [place] [address] 19712 Sodium [Moles/Vol] 134 mmol/L Low 135-145 [facility] Comment on above: Performed By: #### Jackelin Gu, IPB, MGO, CHM7, HFP #### [facility] (DEFAULT) [address] [place] [address] 14248 Urea nitrogen [Mass/Vol] 25 mg/dL Normal 7-25 [facility] Comment on above: Performed By: #### C A, IPB, MGO, CHM7, HFP #### [facility] (DEFAULT) [address] [place] [address] 13927 Urea nitrogen/Creatinine [Mass ratio] 34 mg/mg Normal [facility] Comment on above: Performed By: #### C A, IPB, MGO, CHM7, HFP #### [facility] (DEFAULT) [address] [place] [address] 31062 HEPATIC FUNCTION PANELon Albumin [Mass/Vol] 3.0 g/dL Low 3.5 - 5.0 g/dL [facility] ALP [Catalytic activity/Vol] 143 U/L High 32 - 126 U/L [facility] ALT [Catalytic activity/Vol] 19 U/L 9 - 48 U/L [facility] AST [Catalytic activity/Vol] 28 U/L 10 - 39 U/L [facility] Bilirubin [Mass/Vol] 2.8 mg/dL High NINF - 1.5 mg/dL [facility] Bilirubin.direct [Mass/Vol] 1.3 mg/dL High NINF - 0.3 mg/dL [facility] Protein [Mass/Vol] 5.9 g/dL Low 6.4 - 8.3 g/dL [facility] Albumin [Mass/Vol] 3.0 g/dL Low 3.5-5.0 [facility] Comment on above: Performed By: #### C A, IPB, MGO, CHM7, HFP #### [facility] (DEFAULT) [address] [place] [address] ALP [Catalytic activity/Vol] 143 U/L High 32-126 [facility] Comment on above: Performed By: #### C A, IPB, MGO, CHM7, HFP #### [facility] (DEFAULT) [address] [place] [address] ALT [Catalytic activity/Vol] 19 U/L Normal 9-48 [facility] Comment on above: Performed By: #### C A, IPB, MGO, CHM7, HFP #### [facility] (DEFAULT) [address] [place] [address] 36317 AST [Catalytic activity/Vol] 28 U/L Normal 10-39 [facility] Comment on above: Performed By: #### C A, IPB, MGO, CHM7, HFP #### [facility] (DEFAULT) [address] [place] [address] 28540 Bilirubin [Mass/Vol] 2.8 mg/dL High <1.5 [facility] Comment on above: Performed By: #### C A, IPB, MGO, CHM7, HFP #### [facility] (DEFAULT) [address] [place] [address] 70641 Bilirubin.indirect [Mass/Vol] 1.3 mg/dL High <0.3 [facility] Comment on above: Performed By: #### C A, IPB, MGO, CHM7, HFP #### [facility] (DEFAULT) [address] [place] [address] 19322 Protein [Mass/Vol] 5.9 g/dL Low 6.4-8.3 [facility] Comment on above: Performed By: #### C A, IPB, MGO, CHM7, HFP #### [facility] (DEFAULT) [address] [place] [address] 83234 No Panel Informationon 04-14 Interpretation and review of laboratory results Abnormal [facility] PROTIME-INRon 04-14-2024 INR Coag (Bld) [Relative time] 1.6 {INR} High 0.9 - 1.1 [facility] Interpretation and review of laboratory results Abnormal [facility] PT Coag (PPP) [Time] 19.3 s High [facility] INR Coag (PPP) [Relative time] 1.6 {INR} High 0.9-1.1 [facility] Comment on above: Performed By: #### P TI #### [facility] (DEFAULT) [address] [place] [address] 21829 PT Coag (PPP) [Time] 19.3 s High 11.9-14.2 [facility] Comment on above: Performed By: #### P TI #### [facility] (DEFAULT) [address] [place], [place] [id number] DIAGNOSTIC UPPER ENDOSCOPYon 02-04-[address] [facility] Gastroenterology Patient Name: Madhavi Avalos Procedure Date: 02/04/2024 4:11 PM Date of : 1960 Admit Type: Outpatient Age: 64 Room: [place] [address] Gender: Female Note Status: Finalized Attending MD: Matteo Martinez MD, [id number] Procedure: Upper GI endoscopy Indications: Esophageal varices, Follow-up of esophageal varices Providers: Matteo Martinez MD (Doctor), AYAKA Griffin (Doctor), Vonda Ortiz (Nurse), Anne Moreno RN (Nurse) Patient Profile: This is a 64 year old female. Refer to note in patient chart for documentation of history and physical. Referring MD: Randal Vital MD (Referring MD) Medicines: Monitored Anesthesia Care Complications: No immediate complications. Procedure: Pre-Anesthesia Assessment: - Prior to the procedure, a History and Physical was performed, and patient medications and allergies were reviewed. The patient is competent. The risks and benefits of the procedure and the sedation options and risks were discussed with the patient. All questions were answered and informed consent was obtained. Patient identification and proposed procedure were verified by the physician and the nurse in the procedure room at 16:20 PM. Mental Status Examination: alert and oriented. Airway Examination: normal oropharyngeal airway and neck mobility and Mallampati Class II (the uvula but not tonsillar pillars visualized). Respiratory Examination: clear to auscultation. CV Examination: RRR, no murmurs, no S3 or S4 and ascites. Prophylactic Antibiotics: The patient does not require prophylactic antibiotics. Prior Anticoagulants: The patient has taken no anticoagulant or antiplatelet agents. ASA Grade Assessment: III - A patient with severe systemic disease. After reviewing the risks and benefits, the patient was deemed in satisfactory condition to undergo the procedure. The anesthesia plan was to use monitored anesthesia care (MAC). Immediately prior to administration of medications, the patient was re-assessed for adequacy to receive sedatives. The heart rate, respiratory rate, oxygen saturations, blood pressure, adequacy of pulmonary ventilation, and response to care were monitored throughout the procedure. The physical status of the patient was re-assessed after the procedure. After obtaining informed consent, the endoscope was passed under direct vision. Throughout the procedure, the patient's blood pressure, pulse, and oxygen saturations were monitored continuously. The Endoscope was introduced through the mouth, and advanced to the second part of duodenum. The upper GI endoscopy was accomplished without difficulty. The patient tolerated the procedure (transient hypotension, which was quickly corrected). Findings: The Z-line was regular and was found 38 cm from the incisors. Grade I, large (> 5 mm) varices with no bleeding and no stigmata of recent bleeding were found in the middle third of the esophagus and in the lower third of the esophagus. No red naida signs were present. Scarring from prior treatment was visible. Portal hypertensive gastropathy was found in the entire examined stomach. The examined duodenum was normal. Impression: - Z-line regular, 38 cm from the incisors. - Grade I and large (> 5 mm) esophageal varices with no bleeding and no stigmata of recent bleeding. - Portal hypertensive gastropathy. - Normal examined duodenum. - No specimens collected. Recommendation: - Patient has a contact number available for emergencies. The signs and symptoms of potential (more content not included)... LAB, [facility] Radiology Study observation (narrative) [facility] AFP TUMOR MARKEROrdered By: Sarah Ewing on 01-02-2024 AFP.tumor marker [Mass/Vol] ng/mL NINF - 8.1 ng/mL [facility] Comment on above: This test was perfor med on the PolyRemedy Immunoassay platform by [employer] which is a two-site sandwich chemiluminescent immunoassay. It is important to note that assays using different manufacturers and/or methods may not be comparable. Interpretation and review of laboratory results Normal [facility] AFP TUMOR MARKERon AFP Tumor Marker <2.2 Normal <8.1 [facility] Comment on above: Result Comment: This test was performed on the PolyRemedy Immunoassay platform by [employer] which is a two-site sandwich chemiluminescent immunoassay. It is important to note that assays using different manufacturers and/or methods may not be comparable. Performed By: #### C A, IPB, MGO, CHM7, HFP #### [facility] (DEFAULT) [address] [place] [address] 88979 CBC AND ELECTRONIC DIFFon Abs Baso Auto < Normal 0.00-0.15 [facility] Comment on above: Performed By: #### C A, IPB, MGO, CHM7, HFP #### [facility] (DEFAULT) [address] [place] [address] 67846 Basophils/100 WBC (Bld) 0.4 % Normal [facility] Comment on above: Performed By: #### C A, IPB, MGO, CHM7, HFP #### [facility] (DEFAULT) [address] [place] [address] 24436 DIFF STATUS Electronic Differential Normal [facility] Comment on above: Performed By: #### C A, IPB, MGO, CHM7, HFP #### [facility] (DEFAULT) [address] [place] [address] 79223 Eosinophils (Bld) [#/Vol] 0.11 10*3/uL Normal 0.00-0.42 [facility] Comment on above: Performed By: #### C A, IPB, MGO, CHM7, HFP #### [facility] (DEFAULT) [address] [place] [address] 19556 Eosinophils/100 WBC (Bld) 2.2 % Normal [facility] Comment on above: Performed By: #### C A, IPB, MGO, CHM7, HFP #### [facility] (DEFAULT) [address] [place] [address] 55661 Hematocrit (Bld) [Volume fraction] 35.4 % Normal 34.9-44.3 [facility] Comment on above: Performed By: #### C Riccardo, IPB, MGO, CHM7, HFP #### [facility] (DEFAULT) [address] [place] [address] 37998 Hemoglobin (Bld) [Mass/Vol] 11.5 g/dL Normal 11.4-15.2 [facility] Comment on above: Performed By: #### C Riccardo, IPB, MGO, CHM7, HFP #### [facility] (DEFAULT) [address] [place] [address] 13261 Immature Grans % 0.2 % Normal [facility] Comment on above: Performed By: #### Jackelin A, IPB, MGO, CHM7, HFP #### [facility] (DEFAULT) [address] [place] [address] 73467 Immature Grans Absolute < Normal <=0.08 [facility] Comment on above: Performed By: #### C A, IPB, MGO, CHM7, HFP #### [facility] (DEFAULT) [address] [place] [address] 74577 Lymphocytes (Bld) [#/Vol] 1.09 10*3/uL Low 1.16-3.51 [facility] Comment on above: Performed By: #### C A, IPB, MGO, CHM7, HFP #### [facility] (DEFAULT) [address] [place] [address] 77324 Lymphocytes/100 WBC (Bld) 21.8 % Normal [facility] Comment on above: Performed By: #### C A, IPB, MGO, CHM7, HFP #### [facility] (DEFAULT) [address] [place] [address] 75817 MCV (RBC) [Entitic vol] 93.2 fL Normal 79.6-97.7 [facility] Comment on above: Performed By: #### C A, IPB, MGO, CHM7, HFP #### [facility] (DEFAULT) [address] [place] [address] 47265 Mean Cell Hgb 30.3 pg Normal 25.9-33.9 [facility] Comment on above: Performed By: #### Jackelin A, IPB, MGO, CHM7, HFP #### [facility] (DEFAULT) [address] [place] [address] 51265 Mean Cell Hgb Conc 32.5 g/dL Normal 31.4-35.9 [facility] Comment on above: Performed By: #### Jackelin Gu, IPB, MGO, CHM7, HFP #### [facility] (DEFAULT) [address] [place] [address] 00524 Monocytes (Bld) [#/Vol] 0.80 10*3/uL Normal 0.22-0.87 [facility] Comment on above: Performed By: #### Jackelin A, IPB, MGO, CHM7, HFP #### [facility] (DEFAULT) [address] [place] [address] 02627 Monocytes/100 WBC (Bld) 16.0 % Normal [facility] Comment on above: Performed By: #### Jackelin A, IPB, MGO, CHM7, HFP #### [facility] (DEFAULT) [address] [place] [address] 35045 Nucleated RBC 0.0 /100 WBC Normal <=0.2 [facility] Comment on above: Performed By: #### Jackelin uG, IPB, MGO, CHM7, HFP #### [facility] (DEFAULT) [address] [place] [address] 08460 Platelet mean volume (Bld) [Entitic vol] 11.1 fL Normal 8.5-12.2 [facility] Comment on above: Performed By: #### C A, IPB, MGO, CHM7, HFP #### [facility] (DEFAULT) [address] [place] [address] 97597 Platelets (Bld) [#/Vol] 119 10*3/uL Low 150-393 [facility] Comment on above: Performed By: #### C A, IPB, MGO, CHM7, HFP #### [facility] (DEFAULT) [address] [place] [address] 41308 RBC (Bld) [#/Vol] 3.80 10*6/uL Low 3.91-5.04 [facility] Comment on above: Performed By: #### C A, IPB, MGO, CHM7, HFP #### [facility] (DEFAULT) [address] [place] [address] 81907 RBC Distribution 14.8 % Normal 10.8-14.9 [facility] Comment on above: Performed By: #### C A, IPB, MGO, CHM7, HFP #### [facility] (DEFAULT) [address] [place] [address] 22030 Segs + Bands Auto 59.4 % Normal [facility] Comment on above: Performed By: #### C A, IPB, MGO, CHM7, HFP #### [facility] (DEFAULT) [address] [place] [address] 54987 Segs + Bands,Absolute Auto 2.98 K/uL Normal 1.64-7.28 [facility] Comment on above: Performed By: #### C A, IPB, MGO, CHM7, HFP #### [facility] (DEFAULT) [address] [place] [address] 46986 WBC (Bld) [#/Vol] 5.01 10*3/uL Normal 3.99-11.19 [facility] Comment on above: Performed By: #### C A, IPB, MGO, CHM7, HFP #### [facility] (DEFAULT) [address] [place] [address] 34327 COMPREHENSIVE METABOLIC PANE Rory 01-02-2024 Albumin [Mass/Vol] 2.5 g/dL Low 3.5 - 5.0 g/dL [facility] ALP [Catalytic activity/Vol] 157 U/L High 32 - 126 U/L [facility] ALT [Catalytic activity/Vol] 18 U/L 9 - 48 U/L [facility] Anion gap [Moles/Vol] 8 mmol/L 7 - 17 mmol/L [facility] AST [Catalytic activity/Vol] 30 U/L 10 - 39 U/L [facility] Bilirubin [Mass/Vol] 2.3 mg/dL High NINF - 1.5 mg/dL [facility] Calcium [Mass/Vol] 7.3 mg/dL Low 8.6 - 10. 5 mg/dL [facility] Chloride [Moles/Vol] 99 mmol/L 98 - 10 8 mmol/L [facility] CO2 [Moles/Vol] 33 mmol/L High 21 - 31 mmol/L [facility] Creatinine [Mass/Vol] 0.69 mg/dL 0.50 - 1.20 mg/dL [facility] eGFR, CKD-EPI, Female - PINF [facility] Comment on above: Reported eGFR is bas ed on the CKD-EPI 2020 equation using creatinine, age, and sex. Glucose [Mass/Vol] 90 mg/dL 70 - 99 mg/dL [facility] Interpretation and review of laboratory results Abnormal [facility] Osmolality Calc [Osmolality] 287 [facility] Potassium [Moles/Vol] 4.1 mmol/L 3.5 - 5.0 mmol/L [facility] Protein [Mass/Vol] 6.2 g/dL Low 6.4 - 8.3 g/dL [facility] Sodium [Moles/Vol] 136 mmol/L 135 - 145 mmol/L [facility] Urea nitrogen [Mass/Vol] 20 mg/dL 7 - 25 mg/dL [facility] Urea nitrogen/Creatinine [Mass ratio] 29 mg/mg [facility] Albumin [Mass/Vol] 2.5 g/dL Low 3.5-5.0 [facility] Comment on above: Performed By: #### M , CHM7, HFP #### [facility] (DEFAULT) [address] [place] [address] 43539 ALP [Catalytic activity/Vol] 157 U/L High 32-126 [facility] Comment on above: Performed By: #### M GO, CHM7, HFP #### [facility] (DEFAULT) [address] [place] [address] 34068 ALT [Catalytic activity/Vol] 18 U/L Normal 9-48 [facility] Comment on above: Performed By: #### M GO, CHM7, HFP #### [facility] (DEFAULT) [address] [place] [address] 33086 Anion gap [Moles/Vol] 8 mmol/L Normal 7-17 [facility] Comment on above: Performed By: #### M GO CHM7, HFP #### [facility] (DEFAULT) [address] [place] [address] 20247 AST [Catalytic activity/Vol] 30 U/L Normal 10-39 [facility] Comment on above: Performed By: #### M GO CHM7, HFP #### [facility] (DEFAULT) [address] [place] [address] 63884 Bilirubin [Mass/Vol] 2.3 mg/dL High <1.5 [facility] Comment on above: Performed By: #### M GO CHM7, HFP #### [facility] (DEFAULT) [address] [place] [address] 43137 Calcium [Mass/Vol] 7.3 mg/dL Low 8.6-10.5 [facility] Comment on above: Performed By: #### M GO, CHM7, HFP #### [facility] (DEFAULT) [address] [place] [address] 39352 Chloride [Moles/Vol] 99 mmol/L Normal 98-108 [facility] Comment on above: Performed By: #### M GO, CHM7, HFP #### [facility] (DEFAULT) [address] [place] [address] 63725 CO2 [Moles/Vol] 33 mmol/L High 21-31 [facility] Comment on above: Performed By: #### MAHENDRA NDIAYE, HFP #### [facility] (DEFAULT) [address] [place] [address] 00288 Creatinine [Mass/Vol] 0.69 mg/dL Normal 0.50-1.20 [facility] Comment on above: Performed By: #### MAHENDRA NDIAYE, HFP #### [facility] (DEFAULT) [address] [place] [address] 59387 eGFR, CKD-EPI, Female > Normal >=60 [facility] Comment on above: Result Comment: Repo rted eGFR is based on the CKD-EPI 2020 equation using creatinine, age, and sex. Performed By: #### MAHENDRA NDIAYE, HFP #### [facility] (DEFAULT) [address] [place] [address] 63480 Glucose [Mass/Vol] 90 mg/dL Normal 70-99 [facility] Comment on above: Performed By: #### MAHENDRA NDIAYE, HFP #### [facility] (DEFAULT) [address] [place] [address] 78235 Osmolality [Osmolality] 287 mosm/kg Normal 278-305 [facility] Comment on above: Performed By: #### MAHENDRA NDIAYE, HFP #### [facility] (DEFAULT) [address] [place] [address] 67000 Potassium [Moles/Vol] 4.1 mmol/L Normal 3.5-5.0 [facility] Comment on above: Performed By: #### MAHENDRA NDIAYE, HFP #### [facility] (DEFAULT) [address] [place] [address] 86770 Protein [Mass/Vol] 6.2 g/dL Low 6.4-8.3 [facility] Comment on above: Performed By: #### MAHENDRA NDIAYE, HFP #### [facility] (DEFAULT) [address] [place] [address] 64286 Sodium [Moles/Vol] 136 mmol/L Normal 135-145 [facility] Comment on above: Performed By: #### M MAHENDRA SANCHEZ, HFP #### [facility] (DEFAULT) [address] [place] [address] 31141 Urea nitrogen [Mass/Vol] 20 mg/dL Normal 7-25 [facility] Comment on above: Performed By: #### M MAHENDRA SANCHEZ, HFP #### [facility] (DEFAULT) [address] [place] [address] 69339 Urea nitrogen/Creatinine [Mass ratio] 29 mg/mg Normal [facility] Comment on above: Performed By: #### MAHENDRA NDIAYE, HFP #### [facility] (DEFAULT) [address] [place] [address] 00217 PROTIME-INRon 01-02-2024 INR Coag (Bld) [Relative time] 1.6 {INR} High 0.9 - 1.1 [facility] Interpretation and review of laboratory results Abnormal [facility] PT Coag (PPP) [Time] 18.8 s High [facility] INR Coag (PPP) [Relative time] 1.6 {INR} High 0.9-1.1 [facility] Comment on above: Performed By: #### P TI #### [facility] (DEFAULT) [address] [place] [address] 06055 PT Coag (PPP) [Time] 18.8 s High 11.9-14.2 [facility] Comment on above: Performed By: #### P TI #### [facility] (DEFAULT) [address] [place] [address] 34220 BILIRUBIN DIRECTon 3 Bilirubin.indirect [Mass/Vol] 0.8 mg/dL High <0.3 [facility] Comment on above: Performed By: #### C A, IPB, MGO, CHM7, HFP #### [facility] (DEFAULT) [address] [place] [address] 78871 CBC AND ELECTRONIC DIFFon Abs Baso Auto < Normal 0.00-0.15 [facility] Comment on above: Performed By: #### C A, IPB, MGO, CHM7, HFP #### [facility] (DEFAULT) [address] [place] [address] 12237 Basophils/100 WBC (Bld) 0.7 % Normal [facility] Comment on above: Performed By: #### C A, IPB, MGO, CHM7, HFP #### [facility] (DEFAULT) [address] [place] [address] 87829 DIFF STATUS Electronic Differential Normal [facility] Comment on above: Performed By: #### C A, IPB, MGO, CHM7, HFP #### [facility] (DEFAULT) [address] [place] [address] 72615 Eosinophils (Bld) [#/Vol] 0.10 10*3/uL Normal 0.00-0.42 [facility] Comment on above: Performed By: #### C A, IPB, MGO, CHM7, HFP #### [facility] (DEFAULT) [address] [place] [address] 02745 Eosinophils/100 WBC (Bld) 2.4 % Normal [facility] Comment on above: Performed By: #### C A, IPB, MGO, CHM7, HFP #### [facility] (DEFAULT) [address] [place] [address] 58330 Hematocrit (Bld) [Volume fraction] 34.5 % Low 34.9-44.3 [facility] Comment on above: Performed By: #### C A, IPB, MGO, CHM7, HFP #### [facility] (DEFAULT) [address] [place] [address] 44170 Hemoglobin (Bld) [Mass/Vol] 11.1 g/dL Low 11.4-15.2 [facility] Comment on above: Performed By: #### C A, IPB, MGO, CHM7, HFP #### [facility] (DEFAULT) [address] [place] [address] 52902 Immature Grans % 0.5 % Normal [facility] Comment on above: Performed By: #### C A, IPB, MGO, CHM7, HFP #### [facility] (DEFAULT) [address] [place] [address] 29043 Immature Grans Absolute < Normal <=0.08 [facility] Comment on above: Performed By: #### C A, IPB, MGO, CHM7, HFP #### [facility] (DEFAULT) [address] [place] [address] 70685 Lymphocytes (Bld) [#/Vol] 1.08 10*3/uL Low 1.16-3.51 [facility] Comment on above: Performed By: #### C A, IPB, MGO, CHM7, HFP #### [facility] (DEFAULT) [address] [place] [address] 08420 Lymphocytes/100 WBC (Bld) 25.8 % Normal [facility] Comment on above: Performed By: #### C A, IPB, MGO, CHM7, HFP #### [facility] (DEFAULT) [address] [place] [address] 79444 MCV (RBC) [Entitic vol] 94.3 fL Normal 79.6-97.7 [facility] Comment on above: Performed By: #### C A, IPB, MGO, CHM7, HFP #### [facility] (DEFAULT) [address] [place] [address] 38976 Mean Cell Hgb 30.3 pg Normal 25.9-33.9 [facility] Comment on above: Performed By: #### C A, IPB, MGO, CHM7, HFP #### [facility] (DEFAULT) [address] [place] [address] 58401 Mean Cell Hgb Conc 32.2 g/dL Normal 31.4-35.9 [facility] Comment on above: Performed By: #### C A, IPB, MGO, CHM7, HFP #### [facility] (DEFAULT) [address] [place] [address] 55485 Monocytes (Bld) [#/Vol] 0.60 10*3/uL Normal 0.22-0.87 [facility] Comment on above: Performed By: #### C A, IPB, MGO, CHM7, HFP #### [facility] (DEFAULT) [address] [place] [address] 24581 Monocytes/100 WBC (Bld) 14.4 % Normal [facility] Comment on above: Performed By: #### C A, IPB, MGO, CHM7, HFP #### [facility] (DEFAULT) [address] [place] [address] 34940 Nucleated RBC 0.0 /100 WBC Normal <=0.2 [facility] Comment on above: Performed By: #### C A, IPB, MGO, CHM7, HFP #### [facility] (DEFAULT) [address] [place] [address] 72775 Platelet mean volume (Bld) [Entitic vol] 9.8 fL Normal 8.5-12.2 [facility] Comment on above: Performed By: #### C A, IPB, MGO, CHM7, HFP #### [facility] (DEFAULT) [address] [place] [address] 81626 Platelets (Bld) [#/Vol] 118 10*3/uL Low 150-393 [facility] Comment on above: Performed By: #### C A, IPB, MGO, CHM7, HFP #### [facility] (DEFAULT) [address] [place] [address] 76023 RBC (Bld) [#/Vol] 3.66 10*6/uL Low 3.91-5.04 [facility] Comment on above: Performed By: #### C A, IPB, MGO, CHM7, HFP #### [facility] (DEFAULT) [address] [place] [address] 12282 RBC Distribution 14.7 % Normal 10.8-14.9 [facility] Comment on above: Performed By: #### C A, IPB, MGO, CHM7, HFP #### [facility] (DEFAULT) [address] [place] [address] 01398 Segs + Bands Auto 56.2 % Normal [facility] Comment on above: Performed By: #### C A, IPB, MGO, CHM7, HFP #### [facility] (DEFAULT) [address] [place] [address] 52509 Segs + Bands,Absolute Auto 2.35 K/uL Normal 1.64-7.28 [facility] Comment on above: Performed By: #### C A, IPB, MGO, CHM7, HFP #### [facility] (DEFAULT) [address] [place] [address] 44596 WBC (Bld) [#/Vol] 4.18 10*3/uL Normal 3.99-11.19 [facility] Comment on above: Performed By: #### C Riccardo, IPB, MGO, CHM7, HFP #### [facility] (DEFAULT) [address] [place] [address] 24542 COMPREHENSIVE METABOLIC PANE Rory 10-16-2023 Albumin [Mass/Vol] 3.0 g/dL Low 3.5-5.0 [facility] Comment on above: Performed By: #### C A, IPB, MGO, CHM7, HFP #### [facility] (DEFAULT) [address] [place] [address] 58684 ALP [Catalytic activity/Vol] 147 U/L High 32-126 [facility] Comment on above: Performed By: #### C A, IPB, MGO, CHM7, HFP #### [facility] (DEFAULT) [address] [place] [address] 94817 ALT [Catalytic activity/Vol] 15 U/L Normal 9-48 [facility] Comment on above: Performed By: #### C A, IPB, MGO, CHM7, HFP #### [facility] (DEFAULT) [address] [place] [address] 28566 Anion gap [Moles/Vol] 11 mmol/L Normal 7-17 [facility] Comment on above: Performed By: #### C A, IPB, MGO, CHM7, HFP #### [facility] (DEFAULT) [address] [place] [address] 39543 AST [Catalytic activity/Vol] 25 U/L Normal 10-39 [facility] Comment on above: Performed By: #### C A, IPB, MGO, CHM7, HFP #### [facility] (DEFAULT) [address] [place] [address] 52879 Bilirubin [Mass/Vol] 2.1 mg/dL High <1.5 [facility] Comment on above: Performed By: #### C A, IPB, MGO, CHM7, HFP #### [facility] (DEFAULT) [address] [place] [address] 94549 Calcium [Mass/Vol] 7.9 mg/dL Low 8.6-10.5 [facility] Comment on above: Performed By: #### C A, IPB, MGO, CHM7, HFP #### [facility] (DEFAULT) [address] [place] [address] 51987 Chloride [Moles/Vol] 100 mmol/L Normal 98-108 [facility] Comment on above: Performed By: #### C A, IPB, MGO, CHM7, HFP #### [facility] (DEFAULT) [address] [place] [address] 23153 CO2 [Moles/Vol] 31 mmol/L Normal 21-31 [facility] Comment on above: Performed By: #### C A, IPB, MGO, CHM7, HFP #### [facility] (DEFAULT) [address] [place] [address] 18179 Creatinine [Mass/Vol] 0.65 mg/dL Normal 0.50-1.20 [facility] Comment on above: Performed By: #### C A, IPB, MGO, CHM7, HFP #### [facility] (DEFAULT) [address] [place] [address] 58624 eGFR, CKD-EPI, Female > Normal >=60 [facility] Comment on above: Result Comment: Repo rted eGFR is based on the CKD-EPI 2020 equation using creatinine, age, and sex. Performed By: #### C A, IPB, MGO, CHM7, HFP #### [facility] (DEFAULT) [address] [place] [address] 49809 Glucose [Mass/Vol] 87 mg/dL Normal 70-99 [facility] Comment on above: Performed By: #### C A, IPB, MGO, CHM7, HFP #### [facility] (DEFAULT) [address] [place] [address] 17527 Osmolality [Osmolality] 291 mosm/kg Normal 278-305 [facility] Comment on above: Performed By: #### C A, IPB, MGO, CHM7, HFP #### [facility] (DEFAULT) [address] [place] [address] 79279 Potassium [Moles/Vol] 3.9 mmol/L Normal 3.5-5.0 [facility] Comment on above: Performed By: #### C A, IPB, MGO, CHM7, HFP #### [facility] (DEFAULT) [address] [place] [address] 10013 Protein [Mass/Vol] 6.1 g/dL Low 6.4-8.3 [facility] Comment on above: Performed By: #### C A, IPB, MGO, CHM7, HFP #### [facility] (DEFAULT) [address] [place] [address] 94937 Sodium [Moles/Vol] 138 mmol/L Normal 135-145 [facility] Comment on above: Performed By: #### C A, IPB, MGO, CHM7, HFP #### [facility] (DEFAULT) [address] [place] [address] 31225 Urea nitrogen [Mass/Vol] 21 mg/dL Normal 7-25 [facility] Comment on above: Performed By: #### C A, IPB, MGO, CHM7, HFP #### [facility] (DEFAULT) [address] [place] [address] 28332 Urea nitrogen/Creatinine [Mass ratio] 32 mg/mg Normal [facility] Comment on above: Performed By: #### C A, IPB, MGO, CHM7, HFP #### [facility] (DEFAULT) [address] [place] [address] 80953 PROTIME-INRon 10-16-2023 INR Coag (Bld) [Relative time] 1.5 {INR} High 0.9 - 1.1 [facility] Interpretation and review of laboratory results Abnormal [facility] PT Coag (PPP) [Time] 18.2 s High [facility] INR Coag (PPP) [Relative time] 1.5 {INR} High 0.9-1.1 [facility] Comment on above: Performed By: #### M GO, CHM7, HFP #### [facility] (DEFAULT) [address] [place] [address] 25448 PT Coag (PPP) [Time] 18.2 s High 11.9-14.2 [facility] Comment on above: Performed By: #### M LAURA, CHM7, HFP #### [facility] (DEFAULT) [address] [place] [address] 72802 ABDOMINAL PARACENTESISon Percutaneous abdominal drainage EXAM: IR PERCUTANEOUS TRANSHEPATIC PORTAL VEIN-IP ONLY, IR ABDOMINAL PARACENTESIS, 08/29/2023 13:18 PM (accession [id number]), 08/29/2023 13:19 PM (accession [id number]) CLINICAL INDICATIONS: 63-year-old woman with cirrhosis and refractory ascites presenting for TIPS placement. MEDICATIONS: 1:03 PM 08/29/23 Iohexol (OMNIPAQUE) 300 MG/ML vial 50 mL 40 mL Given Rate: 0 Route: Intravenous; 1:03 PM 08/29/23 Lidocaine 2 % injection 0-400 mg 5 mL Given Rate: 0 Route: Infiltration; TOTAL FLUORO TIME: 99.2 minutes OPERATORS: Amber Clemons MD (Attending); Toma Trent DO (Resident) CONSENT: Following discussion of the risks, benefits and alternatives of the procedure, written informed consent was obtained. SEDATION: General anesthesia was provided by the anesthesiology service. COMPARISON: CT abdomen/pelvis dated July 05, 2023 TIME OUT: Prior to the procedure a time out was performed in the presence of the patient and all personnel involved in this case. The patient identity, procedure type, procedure side/site, and allergies were verified. TECHNIQUE: Position: The patient was transferred to the IR laboratory and was positioned supine on the procedural table. The right neck, abdomen, and right groin were prepped and draped using maximum sterile barrier technique. This consisted of cap, mask, hand hygiene, sterile gown and gloves, 2% Chlorhexidine solution for cutaneous antisepsis and occlusive sterile draping of the field. Preliminary ultrasound demonstrated a large fluid pocket in the right hemiabdomen. A suitable skin site was identified. A Yueh centesis needle was advanced under ultrasound guidance into the perihepatic ascites, with immediate return of straw-colored fluid. An image was saved in the archive system for documentation. The Yueh centesis catheter was attached to suction catheter with removal of 6.2 L of fluid. Attention was then turned to the right groin. Initial ultrasound imaging demonstrated a patent right common femoral vein. After infiltration of the skin and subcutaneous tissue over the target vessel with lidocaine, the right common femoral vein was accessed under direct ultrasound guidance using the modified Seldinger technique. An image was saved to the archive system for documentation. A 9 x 30 cm sheath was then advanced into the IVC. The ICE catheter was inserted through the sheath into the IVC to visualize the hepatic and portal veins. Next attention was turned to the right neck. After infiltration with 2% lidocaine, the right internal jugular vein was accessed with a micropuncture set with ultrasound guidance. An image was saved in the archive system for documentation. The tract was subsequently dilated and a 10-Scottish hemostatic vascular sheath was ultimately advanced over the Bentson wire into the inferior vena cava. A 5-Scottish directional multipurpose catheter was used to selectively catheterize the right hepatic vein. Contrast was injected to evaluate the status of the vein and the position of the catheter in the hepatic vein. The catheter was wedged and pressure measurements were obtained (both the wedge pressure in the right atrial pressure via the sheath). A trans-sinusoidal CO2 portal venogram was obtained to demonstrate the position and anatomy of the portal venous system. Multiple attempts with a variety of catheters and wires were made to advance the sheath into the hepatic vein, however due to the patient's anatomy, size of the liver, length of the right hepatic vein and the angle between the right atrium, IVC and right hepatic vein, it was not possible to advance the sheath into the right hepatic vein. After numerous failed attempts, decision was made to abort the procedure at this time. All catheters and wires were removed and hemostasis was achieved with manual pressure. FINDINGS: Pressure measurements: Wedge: 24 Right atrial: 7 Gradient: 17 IMPRESSION: Aborted TIPS procedure. Continue paracentesis for recurrent ascites. Paracentesis with removal of 6.2 L of straw-colored fluid. Amber Clemons MD was in the room and participated during all lisa portions of this procedure. I personally viewed and interpreted these images and I have reviewed and approved this report. Table formatting from the original result was not included. Flowsheet Row Most Recent Value Fluoro time: 99.2 Fluoro time measurement: minutes Rad Dose: 791 Rad Dose Measurement: ? Partnered Event Details User 8:10 AM 08/29/23 Timeout: Sign-in Signed by Katherine Florian RN at 08/29/2023 8:10 AM FB 9:14 AM 08/29/23 Timeout: TimeOut Signed by Katherine Florian RN at 08/29/2023 9:14 AM FB 12:24 PM 08/29/23 Timeout: Hand-off Signed by Katherine Florian RN at 08/29/2023 12:24 PM FB 12:59 PM 08/29/23 Timeout: Sign-out Signed by Toma Johnson RN at 08/29/2023 1:03 PM ED 1:03 PM 11 (more content not included)... Normal [facility] PERCUTANEOUS TRANSHEPATIC PO RTAL VEIN-IP ONLYon 08-31-2023 PERCUTANEOUS TRANSHEPATIC PORTAL VEIN-IP ONLY EXAM: IR PERCUTANEOUS TRANSHEPATIC PORTAL VEIN-IP ONLY, IR ABDOMINAL PARACENTESIS, 08/29/2023 13:18 PM (accession [id number]), 08/29/2023 13:19 PM (accession [id number]) CLINICAL INDICATIONS: 63-year-old woman with cirrhosis and refractory ascites presenting for TIPS placement. MEDICATIONS: 1:03 PM 08/29/23 Iohexol (OMNIPAQUE) 300 MG/ML vial 50 mL 40 mL Given Rate: 0 Route: Intravenous; 1:03 PM 08/29/23 Lidocaine 2 % injection 0-400 mg 5 mL Given Rate: 0 Route: Infiltration; TOTAL FLUORO TIME: 99.2 minutes OPERATORS: Amber Clemons MD (Attending); Toma Trent DO (Resident) CONSENT: Following discussion of the risks, benefits and alternatives of the procedure, written informed consent was obtained. SEDATION: General anesthesia was provided by the anesthesiology service. COMPARISON: CT abdomen/pelvis dated July 05, 2023 TIME OUT: Prior to the procedure a time out was performed in the presence of the patient and all personnel involved in this case. The patient identity, procedure type, procedure side/site, and allergies were verified. TECHNIQUE: Position: The patient was transferred to the IR laboratory and was positioned supine on the procedural table. The right neck, abdomen, and right groin were prepped and draped using maximum sterile barrier technique. This consisted of cap, mask, hand hygiene, sterile gown and gloves, 2% Chlorhexidine solution for cutaneous antisepsis and occlusive sterile draping of the field. Preliminary ultrasound demonstrated a large fluid pocket in the right hemiabdomen. A suitable skin site was identified. A Code Climateesis needle was advanced under ultrasound guidance into the perihepatic ascites, with immediate return of straw-colored fluid. An image was saved in the archive system for documentation. The Yueh centesis catheter was attached to suction catheter with removal of 6.2 L of fluid. Attention was then turned to the right groin. Initial ultrasound imaging demonstrated a patent right common femoral vein. After infiltration of the skin and subcutaneous tissue over the target vessel with lidocaine, the right common femoral vein was accessed under direct ultrasound guidance using the modified Seldinger technique. An image was saved to the archive system for documentation. A 9 x 30 cm sheath was then advanced into the IVC. The ICE catheter was inserted through the sheath into the IVC to visualize the hepatic and portal veins. Next attention was turned to the right neck. After infiltration with 2% lidocaine, the right internal jugular vein was accessed with a micropuncture set with ultrasound guidance. An image was saved in the archive system for documentation. The tract was subsequently dilated and a 10-Scottish hemostatic vascular sheath was ultimately advanced over the Bentson wire into the inferior vena cava. A 5-Scottish directional multipurpose catheter was used to selectively catheterize the right hepatic vein. Contrast was injected to evaluate the status of the vein and the position of the catheter in the hepatic vein. The catheter was wedged and pressure measurements were obtained (both the wedge pressure in the right atrial pressure via the sheath). A trans-sinusoidal CO2 portal venogram was obtained to demonstrate the position and anatomy of the portal venous system. Multiple attempts with a variety of catheters and wires were made to advance the sheath into the hepatic vein, however due to the patient's anatomy, size of the liver, length of the right hepatic vein and the angle between the right atrium, IVC and right hepatic vein, it was not possible to advance the sheath into the right hepatic vein. After numerous failed attempts, decision was made to abort the procedure at this time. All catheters and wires were removed and hemostasis was achieved with manual pressure. FINDINGS: Pressure measurements: Wedge: 24 Right atrial: 7 Gradient: 17 IMPRESSION: Aborted TIPS procedure. Continue paracentesis for recurrent ascites. Paracentesis with removal of 6.2 L of straw-colored fluid. Amber Clemons MD was in the room and participated during all lisa portions of this procedure. I personally viewed and interpreted these images and I have reviewed and approved this report. Table formatting from the original result was not included. Flowsheet Row Most Recent Value Fluoro time: 99.2 Fluoro time measurement: minutes Rad Dose: 791 Rad Dose Measurement: ? Meds Meds Event Details User 8:10 AM 08/29/23 Timeout: Sign-in Signed by Katherine Florian RN at 08/29/2023 8:10 AM FB 9:14 AM 08/29/23 Timeout: TimeOut Signed by Katherine Florian RN at 08/29/2023 9:14 AM FB 12:24 PM 08/29/23 Timeout: Hand-off Signed by Katherine Florian RN at 08/29/2023 12:24 PM FB 12:59 PM 08/29/23 Timeout: Sign-out Signed by Toma Johnson RN at 08/29/2023 1:03 PM ED 1:03 PM 11 (more content not included)... Normal [facility] CBC,PLATELETSon 08-30-2023 Erythrocyte distribution width (RBC) [Ratio] 14.7 % 10.8 - 14.9 % [facility] Hematocrit (Bld) [Volume fraction] 28.9 % Low 34.9 - 44.3 % [facility] Hemoglobin (Bld) [Mass/Vol] 9.4 g/dL Low 11.4 - 15.2 g/dL [facility] Interpretation and review of laboratory results Abnormal [facility] MCH (RBC) [Entitic mass] 30.9 pg 25.9 - 33.9 pg [facility] MCHC (RBC) [Mass/Vol] 32.5 g/dL 31.4 - 35.9 g/dL [facility] MCV (RBC) [Entitic vol] 95.1 fL 79.6 - 97.7 fL [facility] Platelet mean volume (Bld) [Entitic vol] [facility] Comment on above: Not measured Platelets (Bld) [#/Vol] 62 10*3/uL Low 150 - 393 K/uL [facility] RBC (Bld) [#/Vol] 3.04 10*6/uL Low [facility] WBC (Bld) [#/Vol] 3.27 10*3/uL Low 3.99 - 11. 19 K/uL [facility] Hematocrit (Bld) [Volume fraction] 28.9 % Low 34.9-44.3 [facility] Comment on above: Performed By: #### C A, IPB, MGO, CHM7, HFP #### [facility] (DEFAULT) [address] [place] [address] 83327 Hemoglobin (Bld) [Mass/Vol] 9.4 g/dL Low 11.4-15.2 [facility] Comment on above: Performed By: #### C A, IPB, MGO, CHM7, HFP #### [facility] (DEFAULT) [address] [place] [address] 17009 MCV (RBC) [Entitic vol] 95.1 fL Normal 79.6-97.7 [facility] Comment on above: Performed By: #### C A, IPB, MGO, CHM7, HFP #### [facility] (DEFAULT) [address] [place] [address] 46919 Mean Cell Hgb 30.9 pg Normal 25.9-33.9 [facility] Comment on above: Performed By: #### C A, IPB, MGO, CHM7, HFP #### [facility] (DEFAULT) [address] [place] [address] 65968 Mean Cell Hgb Conc 32.5 g/dL Normal 31.4-35.9 [facility] Comment on above: Performed By: #### C A, IPB, MGO, CHM7, HFP #### [facility] (DEFAULT) [address] [place] [address] 53432 Mean Platelet Volume Normal [facility] Comment on above: Result Comment: Not measured Performed By: #### C A, IPB, MGO, CHM7, HFP #### [facility] (DEFAULT) [address] [place] [address] 77105 Platelets (Bld) [#/Vol] 62 10*3/uL Low 150-393 [facility] Comment on above: Performed By: #### C A, IPB, MGO, CHM7, HFP #### [facility] (DEFAULT) [address] [place] [address] 91139 RBC (Bld) [#/Vol] 3.04 10*6/uL Low 3.91-5.04 [facility] Comment on above: Performed By: #### C A, IPB, MGO, CHM7, HFP #### [facility] (DEFAULT) [address] [place] [address] 10264 RBC Distribution 14.7 % Normal 10.8-14.9 [facility] Comment on above: Performed By: #### C A, IPB, MGO, CHM7, HFP #### [facility] (DEFAULT) [address] [place] [address] 42485 WBC (Bld) [#/Vol] 3.27 10*3/uL Low 3.99-11.19 [facility] Comment on above: Performed By: #### C A, IPB, MGO, CHM7, HFP #### [facility] (DEFAULT) [address] [place] [address] 04276 CHEM 7 (LYTES,BUN,CREA,GLUC) on 08-30-2023 Anion gap [Moles/Vol] 11 mmol/L 7 - 17 mmol/L [facility] Chloride [Moles/Vol] 107 mmol/L 98 - 10 8 mmol/L [facility] CO2 [Moles/Vol] 24 mmol/L 21 - 31 mmol/L [facility] Creatinine [Mass/Vol] 0.65 mg/dL 0.50 - 1.20 mg/dL [facility] eGFR, CKD-EPI, Female - PINF [facility] Comment on above: Reported eGFR is bas ed on the CKD-EPI 2020 equation using creatinine, age, and sex. Glucose [Mass/Vol] 195 mg/dL High 70 - 99 mg/dL [facility] Interpretation and review of laboratory results Abnormal [facility] Osmolality Calc [Osmolality] 298 [facility] Potassium [Moles/Vol] 4.0 mmol/L 3.5 - 5.0 mmol/L [facility] Sodium [Moles/Vol] 138 mmol/L 135 - 145 mmol/L [facility] Urea nitrogen [Mass/Vol] 20 mg/dL 7 - 25 mg/dL [facility] Urea nitrogen/Creatinine [Mass ratio] 31 mg/mg [facility] Anion gap [Moles/Vol] 11 mmol/L Normal 7-17 [facility] Comment on above: Performed By: #### MAHENDRA NDIAYE, HFP #### [facility] (DEFAULT) [address] [place] [address] 54645 Chloride [Moles/Vol] 107 mmol/L Normal 98-108 [facility] Comment on above: Performed By: #### MAHENDRA NDIAYE, HFP #### [facility] (DEFAULT) [address] [place] [address] 95664 CO2 [Moles/Vol] 24 mmol/L Normal 21-31 [facility] Comment on above: Performed By: #### MAHENDRA NDIAYE, HFP #### [facility] (DEFAULT) [address] [place] [address] 97119 Creatinine [Mass/Vol] 0.65 mg/dL Normal 0.50-1.20 [facility] Comment on above: Performed By: #### MAHENDRA NDIAYE, HFP #### [facility] (DEFAULT) [address] [place] [address] 30580 eGFR, CKD-EPI, Female > Normal >=60 [facility] Comment on above: Result Comment: Repo rted eGFR is based on the CKD-EPI 2020 equation using creatinine, age, and sex. Performed By: #### MAHENDRA NDIAYE, HFP #### [facility] (DEFAULT) [address] [place] [address] 51684 Glucose [Mass/Vol] 195 mg/dL High 70-99 [facility] Comment on above: Performed By: #### MAHENDRA NDIAYE, HFP #### [place] [facility] (DEFAULT) [address] [place] [address] 64194 Osmolality [Osmolality] 298 mosm/kg Normal 278-305 [facility] Comment on above: Performed By: #### MAHENDRA NDIAYE, HFP #### [place] [facility] (DEFAULT) [address] [place] [address] 58048 Potassium [Moles/Vol] 4.0 mmol/L Normal 3.5-5.0 [facility] Comment on above: Performed By: #### MAHENDRA NDIAYE, HFP #### [place] [facility] (DEFAULT) [address] [place] [address] 52995 Sodium [Moles/Vol] 138 mmol/L Normal 135-145 [facility] Comment on above: Performed By: #### MAHENDRA NDIAYE, HFP #### [place] [facility] (DEFAULT) [address] [place] [address] 06207 Urea nitrogen [Mass/Vol] 20 mg/dL Normal 7-25 [facility] Comment on above: Performed By: #### MAHENDRA NDIAYE, HFP #### [place] [facility] (DEFAULT) [address] [place] [address] 81403 Urea nitrogen/Creatinine [Mass ratio] 31 mg/mg Normal [facility] Comment on above: Performed By: #### MAHENDRA NDIAYE, HFP #### [facility] (DEFAULT) [address] [place] [address] 46259 HEPATIC FUNCTION PANELon Albumin [Mass/Vol] 3.5 g/dL 3.5 - 5.0 g/dL [facility] ALP [Catalytic activity/Vol] 90 U/L 32 - 126 U/L [facility] ALT [Catalytic activity/Vol] 16 U/L 9 - 48 U/L [facility] AST [Catalytic activity/Vol] 31 U/L 10 - 39 U/L [facility] Bilirubin [Mass/Vol] 2.2 mg/dL High NINF - 1.5 mg/dL [facility] Bilirubin.direct [Mass/Vol] 0.9 mg/dL High NINF - 0.3 mg/dL [facility] Interpretation and review of laboratory results Abnormal [facility] Protein [Mass/Vol] 5.4 g/dL Low 6.4 - 8.3 g/dL [facility] Albumin [Mass/Vol] 3.5 g/dL Normal 3.5-5.0 [facility] Comment on above: Performed By: #### C A, IPB, MGO, CHM7, HFP #### [facility] (DEFAULT) [address] [place] [address] 23536 ALP [Catalytic activity/Vol] 90 U/L Normal 32-126 [facility] Comment on above: Performed By: #### C A, IPB, MGO, CHM7, HFP #### [facility] (DEFAULT) [address] [place] [address] 08033 ALT [Catalytic activity/Vol] 16 U/L Normal 9-48 [facility] Comment on above: Performed By: #### C A, IPB, MGO, CHM7, HFP #### [facility] (DEFAULT) [address] [place] [address] 93751 AST [Catalytic activity/Vol] 31 U/L Normal 10-39 [facility] Comment on above: Performed By: #### C A, IPB, MGO, CHM7, HFP #### [facility] (DEFAULT) [address] [place] [address] 67356 Bilirubin [Mass/Vol] 2.2 mg/dL High <1.5 [facility] Comment on above: Performed By: #### C A, IPB, MGO, CHM7, HFP #### [facility] (DEFAULT) [address] [place] [address] 41693 Bilirubin.indirect [Mass/Vol] 0.9 mg/dL High <0.3 [facility] Comment on above: Performed By: #### C CHETAN Gu MGO, CHM7, HFP #### [facility] (DEFAULT) [address] [place] [address] 58535 Protein [Mass/Vol] 5.4 g/dL Low 6.4-8.3 [facility] Comment on above: Performed By: #### C CHETAN Gu, ZAIRE, CHM7, HFP #### [facility] (DEFAULT) [address] [place] [address] 50286 MAGNESIUMon 08-30-2023 Interpretation and review of laboratory results Normal [facility] Magnesium [Mass/Vol] 1.8 mg/dL 1.6 - 2 .6 mg/dL [facility] Magnesium [Mass/Vol] 1.8 mg/dL Normal 1.6-2.6 [facility] Comment on above: Performed By: #### M LAURA, LUDMILAM7, HFP #### [facility] (DEFAULT) [address] [place] [address] 14635 No Panel Informationon 08-30 [facility] BASIC METABOLIC PANELon 11-0 Anion gap [Moles/Vol] 12 mmol/L 7 - 17 mmol/L [facility] Calcium [Mass/Vol] 7.9 mg/dL Low 8.6 - 10. 5 mg/dL [facility] Chloride [Moles/Vol] 110 mmol/L High 98 - 10 8 mmol/L [facility] CO2 [Moles/Vol] 24 mmol/L 21 - 31 mmol/L [facility] Creatinine [Mass/Vol] 0.48 mg/dL Low 0.50 - 1.20 mg/dL [facility] eGFR, CKD-EPI, Female - PINF [facility] Comment on above: Reported eGFR is bas ed on the CKD-EPI 2020 equation using creatinine, age, and sex. Glucose [Mass/Vol] 73 mg/dL 70 - 99 mg/dL [facility] Interpretation and review of laboratory results Abnormal [facility] Osmolality Calc [Osmolality] 296 [facility] Potassium [Moles/Vol] 4.0 mmol/L 3.5 - 5.0 mmol/L [facility] Sodium [Moles/Vol] 142 mmol/L 135 - 145 mmol/L [facility] Urea nitrogen [Mass/Vol] 16 mg/dL 7 - 25 mg/dL [facility] Urea nitrogen/Creatinine [Mass ratio] 33 mg/mg [facility] Anion gap [Moles/Vol] 12 mmol/L Normal 7-17 [facility] Comment on above: Performed By: #### MAHENDRA NDIAYE, HFP #### [facility] (DEFAULT) [address] [place] [address] 96427 Calcium [Mass/Vol] 7.9 mg/dL Low 8.6-10.5 [facility] Comment on above: Performed By: #### MAHENDRA NDIAYE, HFP #### [facility] (DEFAULT) [address] [place] [address] 86951 Chloride [Moles/Vol] 110 mmol/L High 98-108 [facility] Comment on above: Performed By: #### MAHENDRA NDIAYE, HFP #### [facility] (DEFAULT) [address] [place] [address] 52558 CO2 [Moles/Vol] 24 mmol/L Normal 21-31 [facility] Comment on above: Performed By: #### MAHENDRA NDIAYE, HFP #### [facility] (DEFAULT) [address] [place] [address] 64339 Creatinine [Mass/Vol] 0.48 mg/dL Low 0.50-1.20 [facility] Comment on above: Performed By: #### SHARMILA NDIAYE7, HFP #### [facility] (DEFAULT) [address] [place] [address] 44478 eGFR, CKD-EPI, Female > Normal >=60 [facility] Comment on above: Result Comment: Repo rted eGFR is based on the CKD-EPI 2020 equation using creatinine, age, and sex. Performed By: #### MAHENDRA NDIAYE, HFP #### [facility] (DEFAULT) [address] [place] [address] 26736 Glucose [Mass/Vol] 73 mg/dL Normal 70-99 [facility] Comment on above: Performed By: #### MAHENDRA NDIAYE, HFP #### [facility] (DEFAULT) [address] [place] [address] 26378 Osmolality [Osmolality] 296 mosm/kg Normal 278-305 [facility] Comment on above: Performed By: #### MAHENDRA NDIAYE, HFP #### [facility] (DEFAULT) [address] [place] [address] 77591 Potassium [Moles/Vol] 4.0 mmol/L Normal 3.5-5.0 [facility] Comment on above: Performed By: #### MAHENDRA NDIAYE, HFP #### [facility] (DEFAULT) [address] [place] [address] 05195 Sodium [Moles/Vol] 142 mmol/L Normal 135-145 [facility] Comment on above: Performed By: #### MAHENDRA NDIAYE, HFP #### [facility] (DEFAULT) [address] [place] [address] 33014 Urea nitrogen [Mass/Vol] 16 mg/dL Normal 7-25 [facility] Comment on above: Performed By: #### MAHENDRA NDIAYE, HFP #### [facility] (DEFAULT) [address] [place] [address] 39739 Urea nitrogen/Creatinine [Mass ratio] 33 mg/mg Normal [facility] Comment on above: Performed By: #### MAHENDRA NDIAYE, HFP #### [facility] (DEFAULT) [address] [place] [address] 74380 CBC,PLATELETSon 08-29-2023 Erythrocyte distribution width (RBC) [Ratio] 14.7 % 10.8 - 14.9 % [facility] Hematocrit (Bld) [Volume fraction] 31.2 % Low 34.9 - 44.3 % [facility] Hemoglobin (Bld) [Mass/Vol] 10.4 g/dL Low 11.4 - 15.2 g/dL [facility] Interpretation and review of laboratory results Abnormal [facility] MCH (RBC) [Entitic mass] 31.0 pg 25.9 - 33.9 pg [facility] MCHC (RBC) [Mass/Vol] 33.3 g/dL 31.4 - 35.9 g/dL [facility] MCV (RBC) [Entitic vol] 92.9 fL 79.6 - 97.7 fL [facility] Platelet mean volume (Bld) [Entitic vol] 10.6 fL 8.5 - 12.2 fL [facility] Platelets (Bld) [#/Vol] 100 10*3/uL Low 150 - 393 K/uL [facility] RBC (Bld) [#/Vol] 3.36 10*6/uL Low [facility] WBC (Bld) [#/Vol] 3.39 10*3/uL Low 3.99 - 11. 19 K/uL [facility] Hematocrit (Bld) [Volume fraction] 31.2 % Low 34.9-44.3 [facility] Comment on above: Performed By: #### MAHENDRA NDIAYE, HFP #### [facility] (DEFAULT) [address] [address] Hemoglobin (Bld) [Mass/Vol] 10.4 g/dL Low 11.4-15.2 [facility] Comment on above: Performed By: #### MAHENDRA NDIAYE, HFP #### [facility] (DEFAULT) [address] [address] MCV (RBC) [Entitic vol] 92.9 fL Normal 79.6-97.7 [facility] Comment on above: Performed By: #### MAHENDRA NDIAYE, HFP #### [facility] (DEFAULT) [address] [place] [address] 69710 Mean Cell Hgb 31.0 pg Normal 25.9-33.9 [facility] Comment on above: Performed By: #### SHARMILA NDIAYE7, HFP #### [facility] (DEFAULT) [address] [place] [address] 84279 Mean Cell Hgb Conc 33.3 g/dL Normal 31.4-35.9 [facility] Comment on above: Performed By: #### MAHENDRA NDIAYE, HFP #### [facility] (DEFAULT) [address] [place] [address] 76122 Platelet mean volume (Bld) [Entitic vol] 10.6 fL Normal 8.5-12.2 [facility] Comment on above: Performed By: #### MAHENDRA NDIAYE, HFP #### [facility] (DEFAULT) [address] [place] [address] 07832 Platelets (Bld) [#/Vol] 100 10*3/uL Low 150-393 [facility] Comment on above: Performed By: #### MAHENDRA NDIAYE, HFP #### [facility] (DEFAULT) [address] [place] [address] 01477 RBC (Bld) [#/Vol] 3.36 10*6/uL Low 3.91-5.04 [facility] Comment on above: Performed By: #### MAHENDRA NDIAYE, HFP #### [facility] (DEFAULT) [address] [place] [address] 81492 RBC Distribution 14.7 % Normal 10.8-14.9 [facility] Comment on above: Performed By: #### SHARMILA NDIAYE7, HFP #### [facility] (DEFAULT) [address] [place] [address] 75399 WBC (Bld) [#/Vol] 3.39 10*3/uL Low 3.99-11.19 [facility] Comment on above: Performed By: #### M SHARMILA SANCHEZ7, HFP #### [facility] (DEFAULT) [address] [place] [address] CHEM 7 (LYTES,BUN,CREA,GLUC) on 08-29-2023 Anion gap [Moles/Vol] 11 mmol/L 7 - 17 mmol/L [facility] Chloride [Moles/Vol] 107 mmol/L 98 - 10 8 mmol/L [facility] CO2 [Moles/Vol] 23 mmol/L 21 - 31 mmol/L [facility] Creatinine [Mass/Vol] 0.56 mg/dL 0.50 - 1.20 mg/dL [facility] eGFR, CKD-EPI, Female - PINF [facility] Comment on above: Reported eGFR is bas ed on the CKD-EPI 2020 equation using creatinine, age, and sex. Glucose [Mass/Vol] 88 mg/dL 70 - 99 mg/dL [facility] Osmolality Calc [Osmolality] 289 [facility] Potassium [Moles/Vol] 4.4 mmol/L 3.5 - 5.0 mmol/L [facility] Sodium [Moles/Vol] 137 mmol/L 135 - 145 mmol/L [facility] Urea nitrogen [Mass/Vol] 19 mg/dL 7 - 25 mg/dL [facility] Urea nitrogen/Creatinine [Mass ratio] 34 mg/mg [facility] Anion gap [Moles/Vol] 11 mmol/L Normal 7-17 [facility] Comment on above: Performed By: #### M SHARMILA SANCHEZ7, HFP #### [facility] (DEFAULT) [address] [place] [address] Chloride [Moles/Vol] 107 mmol/L Normal 98-108 [facility] Comment on above: Performed By: #### M LUDMILA SANCHEZM7, HFP #### [facility] (DEFAULT) [address] [place] [address] CO2 [Moles/Vol] 23 mmol/L Normal 21-31 [facility] Comment on above: Performed By: #### Manisha SANCHEZ CHM7, HFP #### [facility] (DEFAULT) [address] [place] [address] 32647 Creatinine [Mass/Vol] 0.56 mg/dL Normal 0.50-1.20 [facility] Comment on above: Performed By: #### Manisha SANCHEZ CHM7, HFP #### [facility] (DEFAULT) [address] [place] [address] 60503 eGFR, CKD-EPI, Female > Normal >=60 [facility] Comment on above: Result Comment: Repo rted eGFR is based on the CKD-EPI 2020 equation using creatinine, age, and sex. Performed By: #### Manisha SANCHEZ CHM7, HFP #### [facility] (DEFAULT) [address] [place] [address] 39620 Glucose [Mass/Vol] 88 mg/dL Normal 70-99 [facility] Comment on above: Performed By: #### SHARMILA NDIAYE7, HFP #### [facility] (DEFAULT) [address] [place] [address] 62869 Osmolality [Osmolality] 289 mosm/kg Normal 278-305 [facility] Comment on above: Performed By: #### Manisha SANCHEZ CHM7, HFP #### [facility] (DEFAULT) [address] [place] [address] 54237 Potassium [Moles/Vol] 4.4 mmol/L Normal 3.5-5.0 [facility] Comment on above: Performed By: #### Manisha SANCHEZ CHM7, HFP #### [facility] (DEFAULT) [address] [place] [address] 80953 Sodium [Moles/Vol] 137 mmol/L Normal 135-145 [facility] Comment on above: Performed By: #### Manisha SANCHEZ CHM7, HFP #### [facility] (DEFAULT) [address] [place] [address] 94047 Urea nitrogen [Mass/Vol] 19 mg/dL Normal 7-25 [facility] Comment on above: Performed By: #### M MAHENDRA SANCHEZ, HFP #### [facility] (DEFAULT) [address] [place] [address] Urea nitrogen/Creatinine [Mass ratio] 34 mg/mg Normal [facility] Comment on above: Performed By: #### M MAHENDRA SANCHEZ, HFP #### [facility] (DEFAULT) [address] [place] [address] GENERAL PROCEDUREon 08-29-20 [facility] Radiology Study observation (narrative) [facility] HEPATIC FUNCTION PANELOrdere d By: Tay Go on 08-29-2023 Albumin [Mass/Vol] 2.6 g/dL Low 3.5 - 5.0 g/dL [facility] ALP [Catalytic activity/Vol] 140 U/L High 32 - 126 U/L [facility] ALT [Catalytic activity/Vol] 11 U/L 9 - 48 U/L [facility] AST [Catalytic activity/Vol] 22 U/L 10 - 39 U/L [facility] Bilirubin [Mass/Vol] 1.8 mg/dL [facility]dL [facility] Bilirubin.direct [Mass/Vol] 0.7 mg/dL High NINF - 0.3 mg/dL [facility] Interpretation and review of laboratory results Abnormal [facility] Protein [Mass/Vol] 5.2 g/dL Low 6.4 - 8.3 g/dL [facility] HEPATIC FUNCTION PANELon Albumin [Mass/Vol] 2.6 g/dL Low 3.5-5.0 [facility] Comment on above: Performed By: #### MAHENDRA NDIAYE, HFP #### [facility] (DEFAULT) [address] [place] [address] 78098 ALP [Catalytic activity/Vol] 140 U/L High 32-126 [facility] Comment on above: Performed By: #### MAHENDRA NDIAYE, HFP #### [facility] (DEFAULT) [address] [place] [address] 81419 ALT [Catalytic activity/Vol] 11 U/L Normal 9-48 [facility] Comment on above: Performed By: #### SHARMILA NDIAYE7, HFP #### [facility] (DEFAULT) [address] [place] [address] 65007 AST [Catalytic activity/Vol] 22 U/L Normal 10-39 [facility] Comment on above: Performed By: #### MAHENDRA NDIAYE, HFP #### [facility] (DEFAULT) [address] [place] [address] 08130 Bilirubin [Mass/Vol] 1.8 mg/dL High <1.5 [facility] Comment on above: Performed By: #### MAHENDRA NDIAYE, HFP #### [facility] (DEFAULT) [address] [place] [address] 63764 Bilirubin.indirect [Mass/Vol] 0.7 mg/dL High <0.3 [facility] Comment on above: Performed By: #### MAHENDRA NDIAYE, HFP #### [facility] (DEFAULT) [address] [place] [address] 82478 Protein [Mass/Vol] 5.2 g/dL Low 6.4-8.3 [facility] Comment on above: Performed By: #### MAHENDRA NDIAYE, HFP #### [facility] (DEFAULT) [address] [place] [address] 38855 MAGNESIUMon 08-29-2023 Interpretation and review of laboratory results Normal [facility] Magnesium [Mass/Vol] 1.8 mg/dL 1.6 - 2 .6 mg/dL [facility] Magnesium [Mass/Vol] 1.8 mg/dL Normal 1.6-2.6 [facility] Comment on above: Performed By: #### MAHENDRA NDIAYE, HFP #### [facility] (DEFAULT) [address] [place] [address] 12539 No Panel Informationon 08-29 [facility] PREPARE TO TRANSFUSE PLASMAo n 08-29-2023 ABO/RH(D) TYPE Positive [facility] BLOOD COMPONENT TYPE Plasma, Thawed [facility] EXPIRATION DATE [id number] [facility] Product ABO/RH(D) Positive [facility] Product ABO/RH(D) NUMBER 7300 [facility] PRODUCT CODE [id number] [facility] UNIT NUMBER [id number] [facility] UNIT STATUS transfused [facility] PT,INR,PTTon 08-29-2023 aPTT Coag (PPP) [Time] 45.6 s High [facility] INR Coag (Bld) [Relative time] 1.8 {INR} High 0.9 - 1.1 [facility] Interpretation and review of laboratory results Abnormal [facility] PT Coag (PPP) [Time] 20.3 s High [facility] aPTT Coag (Bld) [Time] 45.6 s High 24.0-34.3 [facility] Comment on above: Performed By: #### MAHENDRA NDIAYE, HFP #### [facility] (DEFAULT) [address] [place] [address] 53169 INR Coag (PPP) [Relative time] 1.8 {INR} High 0.9-1.1 [facility] Comment on above: Performed By: #### M MAHENDRA SANCHEZ, HFP #### [facility] (DEFAULT) [address] [place] [address] 63191 PT Coag (PPP) [Time] 20.3 s High 11.9-14.2 [facility] Comment on above: Performed By: #### M MAHENDRA SANCHEZ, HFP #### [facility] (DEFAULT) [address] [place] [address] TRANSFUSE OR PLASMAOrdered B y: Allan Turpin on 08-29-2023 [facility] VENOUS BLOOD GAS (FULL PANEL )Ordered By: Martha King on 08-29-2023 Base excess Calc (Bld) [Moles/Vol] -2.0000 mmol/L -3.0 - 3.0 mmol/L [facility] Calcium.ionized (Bld) [Mass/Vol] 3.97 mg/dL Low 4.60 - 5.30 mg/dL [facility] Carboxyhemoglobin (Bld) [Mass fraction] 1.7 % High NINF - 1.5 % [facility] CO2 (Bld) [Partial pressure] 40 mm[Hg] [facility] Glucose [Mass/Vol] 81 mg/dL 70 - 99 mg/dL [facility] HCO3 (Bld) [Moles/Vol] 23 mmol/L 22 - 29 mmol/L [facility] Hematocrit (Bld) [Volume fraction] 30.1 % Low 34.2 - 45.6 % [facility] Hemoglobin (Bld) [Mass/Vol] 9.7 g/dL Low 11.4 - 15.2 g/dL [facility] Interpretation and review of laboratory results Abnormal [facility] Lactate [Moles/Vol] 1.6 mmol/L 0.5 - 1. 6 mmol/L [facility] Methemoglobin (Bld) [Mass fraction] 0.6 % NINF - 1.5 % [facility] Oxygen (Bld) [Partial pressure] 106 mm[Hg] mm Hg [facility] Comment on above: Venous pO2 is not re commended for the evaluation of oxygen status, clinical correlation is recommended. Oxygen saturation in Blood 98 % High 70 - 80 % [facility] Oxyhemoglobin 96 % 94 - 98 % [facility] pH (Bld) 7.37 [pH] 7.32 - 7.43 [facility] Potassium [Moles/Vol] 6.3 mmol/L Critically high 3.5 - 5.0 mmol/L [facility] Sodium [Moles/Vol] 135 mmol/L 135 - 145 mmol/L [facility] Specimen source Nom (Unsp spec) Venous [facility] VENOUS BLOOD GAS (FULL PANEL )on 08-29-2023 Base Excess -2.0 mmol/L Normal -3.0-3.0 [facility] Comment on above: Performed By: #### MAHENDRA NDIAYE, HFP #### [facility] (DEFAULT) [address] [place] [address] 99679 Carboxyhemoglobin 1.7 % High <=1.5 [facility] Comment on above: Performed By: #### MAHENDRA NDIAYE, HFP #### [facility] (DEFAULT) [address] [place] [address] 98631 Glucose [Mass/Vol] 81 mg/dL Normal 70-99 [facility] Comment on above: Performed By: #### MAHENDRA NDIAYE, HFP #### [facility] (DEFAULT) [address] [place] [address] 50970 HCO3 (Bld) [Moles/Vol] 23 mmol/L Normal 22-29 [facility] Comment on above: Performed By: #### MAHENDRA NDIAYE, HFP #### [facility] (DEFAULT) [address] [place] [address] 74227 Hematocrit (Bld) [Volume fraction] 30.1 % Low 34.2-45.6 [facility] Comment on above: Performed By: #### MAHENDRA NDIAYE, HFP #### [facility] (DEFAULT) [address] [place] [address] 83796 Hemoglobin (Bld) [Mass/Vol] 9.7 g/dL Low 11.4-15.2 [facility] Comment on above: Performed By: #### Manisha SANCHEZ CHM7, HFP #### [facility] (DEFAULT) [address] [place] [address] 94325 Ionized Calcium, Whole Blood 3.97 mg/dL Low 4.60-5.30 [facility] Comment on above: Performed By: #### MAHENDRA NDIAYE, HFP #### [facility] (DEFAULT) [address] [place] [address] 27136 Lactate, Whole Blood 1.6 mmol/L Normal 0.5-1.6 [facility] Comment on above: Performed By: #### MAHENDRA NDIAYE, HFP #### [facility] (DEFAULT) [address] [place] [address] 03957 Methemoglobin 0.6 % Normal <=1.5 [facility] Comment on above: Performed By: #### MAHENDRA NDIAYE, HFP #### [facility] (DEFAULT) [address] [place] [address] 22456 Oxyhemoglobin 96 % Normal 94-98 [facility] Comment on above: Performed By: #### MAHENDRA NDIAYE, HFP #### [facility] (DEFAULT) [address] [place] [address] 21511 PCO2 40 mm Hg Normal 36-52 [facility] Comment on above: Performed By: #### MAHENDRA NDIAYE, HFP #### [facility] (DEFAULT) [address] [place] [address] 27881 pH (Bld) 7.37 [pH] Normal 7.32-7.43 [facility] Comment on above: Performed By: #### MAHENDRA NDIAYE, HFP #### [facility] (DEFAULT) [address] [place] [address] 56937 PO2 106 mm Hg Normal [facility] Comment on above: Result Comment: Veno us pO2 is not recommended for the evaluation of oxygen status, clinical correlation is recommended. Performed By: #### MAHENDRA NDIAYE, HFP #### [facility] (DEFAULT) [address] [place] [address] 50237 Potassium [Moles/Vol] 6.3 mmol/L Critically high 3.5-5.0 [facility] Comment on above: Performed By: #### M MAHENDRA SANCHEZ, HFP #### [facility] (DEFAULT) [address] [place] [address] 66050 sO2 98 % High 70-80 [facility] Comment on above: Performed By: #### SHARMILA NDIAYE7, HFP #### [facility] (DEFAULT) [address] [place] [address] 54587 Sodium [Moles/Vol] 135 mmol/L Normal 135-145 [facility] Comment on above: Performed By: #### SHARMILA NDIAYE7, HFP #### [facility] (DEFAULT) [address] [place] [address] 14400 Specimen type Nom (Spec) Venous Normal [facility] Comment on above: Performed By: #### MAHENDRA NDIAYE, HFP #### [facility] (DEFAULT) [address] [place] [address] 47761 ABORH TYPE RECONFIRMATIONon 08-28-2023 ABO/RH(D) TYPE Positive [facility] ABO/RH(D) TYPE Positive Normal [facility] Comment on above: Performed By: #### MAHENDRA NDIAYE, HFP #### [facility] (DEFAULT) [address] [place] [address] 10285 CALCIUMon 08-28-2023 Calcium [Mass/Vol] 8.1 mg/dL Low 8.6 - 10. 5 mg/dL [facility] Calcium [Mass/Vol] 8.1 mg/dL Low 8.6-10.5 [facility] Comment on above: Performed By: #### C A, IPB, MGO, CHM7, HFP #### [facility] (DEFAULT) [address] [place] [address] 75690 CBC AND ELECTRONIC DIFFon Basophils (Bld) [#/Vol] K/uL 0.00 - 0.15 K/uL [facility] Basophils/100 WBC (Bld) 0.4 % [facility] Differential cell count method Nom (Bld) Electronic Differential [facility] Eosinophils (Bld) [#/Vol] 0.09 10*3/uL 0.00 - 0.42 K/uL [facility] Eosinophils/100 WBC (Bld) 1.9 % [facility] Erythrocyte distribution width (RBC) [Ratio] 14.6 % 10.8 - 14.9 % [facility] Comment on above: This is an appended report. These results have been appended to a previously preliminary verified report. Hematocrit (Bld) [Volume fraction] 39.1 % 34.9 - 44.3 % [facility] Comment on above: This is an appended report. These results have been appended to a previously preliminary verified report. Hemoglobin (Bld) [Mass/Vol] 12.7 g/dL 11.4 - 15.2 g/dL [facility] Comment on above: This is an appended report. These results have been appended to a previously preliminary verified report. Immature granulocytes (Bld) [#/Vol] K/uL NINF - 0.08 K/uL [facility] Immature granulocytes/100 WBC (Bld) 0.4 % [facility] Interpretation and review of laboratory results Abnormal [facility] Lymphocytes (Bld) [#/Vol] 1.04 10*3/uL Low 1.16 - 3.51 K/uL [facility] Lymphocytes/100 WBC (Bld) 22.3 % [facility] MCH (RBC) [Entitic mass] 30.8 pg 25.9 - 33.9 pg [facility] Comment on above: This is an appended report. These results have been appended to a previously preliminary verified report. MCHC (RBC) [Mass/Vol] 32.5 g/dL 31.4 - 35.9 g/dL [facility] Comment on above: This is an appended report. These results have been appended to a previously preliminary verified report. MCV (RBC) [Entitic vol] 94.9 fL 79.6 - 97.7 fL [facility] Comment on above: This is an appended report. These results have been appended to a previously preliminary verified report. Monocytes (Bld) [#/Vol] 0.49 10*3/uL 0.22 - 0.87 K/uL [facility] Monocytes/100 WBC (Bld) 10.5 % [facility] Neutrophils (Bld) [#/Vol] 3.01 10*3/uL 1.64 - 7.28 K/uL [facility] Nucleated RBC/100 WBC (Bld) [Ratio] 0.0 % NINF [facility] Comment on above: This is an appended report. These results have been appended to a previously preliminary verified report. Platelet mean volume (Bld) [Entitic vol] [facility] Comment on above: Not measured Platelets (Bld) [#/Vol] 118 10*3/uL Low 150 - 393 K/uL [facility] Comment on above: This is an appended report. These results have been appended to a previously preliminary verified report. RBC (Bld) [#/Vol] 4.12 10*6/uL [facility] Comment on above: This is an appended report. These results have been appended to a previously preliminary verified report. Segmented neutrophils/100 WBC (Bld) 64.5 % [facility] WBC (Bld) [#/Vol] 4.67 10*3/uL 3.99 - 11. 19 K/uL [facility] Comment on above: This is an appended report. These results have been appended to a previously preliminary verified report. [facility] Abs Baso Auto < Normal 0.00-0.15 [facility] Comment on above: Performed By: #### C Riccardo, IPB, MGPhylicia, CHM7, HFP #### [facility] (DEFAULT) [address] [place] [address] 30527 Basophils/100 WBC (Bld) 0.4 % Normal [facility] Comment on above: Performed By: #### Jackelin Gu, IPB, MGO, CHM7, HFP #### [facility] (DEFAULT) [address] [place] [address] 23297 DIFF STATUS Electronic Differential Normal [facility] Comment on above: Performed By: #### C Riccardo, IPB, MGO, CHM7, HFP #### [facility] (DEFAULT) [address] [place] [address] 50926 Eosinophils (Bld) [#/Vol] 0.09 10*3/uL Normal 0.00-0.42 [facility] Comment on above: Performed By: #### C A, IPB, MGO, CHM7, HFP #### [facility] (DEFAULT) [address] [place] [address] 78975 Eosinophils/100 WBC (Bld) 1.9 % Normal [facility] Comment on above: Performed By: #### C A, IPB, MGO, CHM7, HFP #### [facility] (DEFAULT) [address] [place] [address] 97006 Hematocrit (Bld) [Volume fraction] 39.1 % Normal 34.9-44.3 [facility] Comment on above: Result Comment: This is an appended report. These results have been appended to a previously preliminary verified report. Performed By: #### C Riccardo, IPB, MGO, CHM7, HFP #### [facility] (DEFAULT) [address] [place] [address] 03677 Hemoglobin (Bld) [Mass/Vol] 12.7 g/dL Normal 11.4-15.2 [facility] Comment on above: Result Comment: This is an appended report. These results have been appended to a previously preliminary verified report. Performed By: #### C Riccardo, IPB, MGO, CHM7, HFP #### [facility] (DEFAULT) [address] [place] [address] 16109 Immature Grans % 0.4 % Normal [facility] Comment on above: Performed By: #### Jackelin A, IPB, MGO, CHM7, HFP #### [facility] (DEFAULT) [address] [place] [address] 35585 Immature Grans Absolute < Normal <=0.08 [facility] Comment on above: Performed By: #### C Riccardo, IPB, MGO, CHM7, HFP #### [facility] (DEFAULT) [address] [place] [address] 52677 Lymphocytes (Bld) [#/Vol] 1.04 10*3/uL Low 1.16-3.51 [facility] Comment on above: Performed By: #### C Riccardo, IPB, MGO, CHM7, HFP #### [facility] (DEFAULT) [address] [place] [address] 20105 Lymphocytes/100 WBC (Bld) 22.3 % Normal [facility] Comment on above: Performed By: #### Jackelin Gu, IPB, MGO, CHM7, HFP #### [facility] (DEFAULT) [address] [place] [address] 07519 MCV (RBC) [Entitic vol] 94.9 fL Normal 79.6-97.7 [facility] Comment on above: Result Comment: This is an appended report. These results have been appended to a previously preliminary verified report. Performed By: #### C Riccardo, IPB, MGO, CHM7, HFP #### [facility] (DEFAULT) [address] [place] [address] 94439 Mean Cell Hgb 30.8 pg Normal 25.9-33.9 [facility] Comment on above: Result Comment: This is an appended report. These results have been appended to a previously preliminary verified report. Performed By: #### C Riccardo, IPB, MGO, CHM7, HFP #### [facility] (DEFAULT) [address] [place] [address] 72017 Mean Cell Hgb Conc 32.5 g/dL Normal 31.4-35.9 [facility] Comment on above: Result Comment: This is an appended report. These results have been appended to a previously preliminary verified report. Performed By: #### Jackelin Gu, IPB, MGO, CHM7, HFP #### [facility] (DEFAULT) [address] [place] [address] 58938 Mean Platelet Volume Normal [facility] Comment on above: Result Comment: Not measured Performed By: #### C A, IPB, MGO, CHM7, HFP #### [facility] (DEFAULT) [address] [place] [address] 09590 Monocytes (Bld) [#/Vol] 0.49 10*3/uL Normal 0.22-0.87 [facility] Comment on above: Performed By: #### C A, IPB, MGO, CHM7, HFP #### [facility] (DEFAULT) [address] [place] [address] 22242 Monocytes/100 WBC (Bld) 10.5 % Normal [facility] Comment on above: Performed By: #### C A, IPB, MGO, CHM7, HFP #### [facility] (DEFAULT) [address] [place] [address] 13739 Nucleated RBC 0.0 /100 WBC Normal <=0.2 [facility] Comment on above: Result Comment: This is an appended report. These results have been appended to a previously preliminary verified report. Performed By: #### C A, IPB, MGO, CHM7, HFP #### [facility] (DEFAULT) [address] [place] [address] 40968 Platelets (Bld) [#/Vol] 118 10*3/uL Low 150-393 [facility] Comment on above: Result Comment: This is an appended report. These results have been appended to a previously preliminary verified report. Performed By: #### C A, IPB, MGO, CHM7, HFP #### [facility] (DEFAULT) [address] [place] [address] 00837 RBC (Bld) [#/Vol] 4.12 10*6/uL Normal 3.91-5.04 [facility] Comment on above: Result Comment: This is an appended report. These results have been appended to a previously preliminary verified report. Performed By: #### C A, IPB, MGO, CHM7, HFP #### [facility] (DEFAULT) [address] [place] [address] 13999 RBC Distribution 14.6 % Normal 10.8-14.9 [facility] Comment on above: Result Comment: This is an appended report. These results have been appended to a previously preliminary verified report. Performed By: #### C Riccardo, IPB, MGO, CHM7, HFP #### [facility] (DEFAULT) [address] [place] [address] 05205 Segs + Bands Auto 64.5 % Normal [facility] Comment on above: Performed By: #### Jackelin A, IPB, MGO, CHM7, HFP #### [facility] (DEFAULT) [address] [place] [address] 19963 Segs + Bands,Absolute Auto 3.01 K/uL Normal 1.64-7.28 [facility] Comment on above: Performed By: #### C Riccardo, IPB, MGO, CHM7, HFP #### [facility] (DEFAULT) [address] [place] [address] 74125 WBC (Bld) [#/Vol] 4.67 10*3/uL Normal 3.99-11.19 [facility] Comment on above: Result Comment: This is an appended report. These results have been appended to a previously preliminary verified report. Performed By: #### C A, IPB, MGO, CHM7, HFP #### [facility] (DEFAULT) [address] [place] [address] 98179 CHEM 7 (LYTES,BUN,CREA,GLUC) on 08-28-2023 Anion gap [Moles/Vol] 12 mmol/L 7 - 17 mmol/L [facility] Chloride [Moles/Vol] 106 mmol/L 98 - 10 8 mmol/L [facility] CO2 [Moles/Vol] 25 mmol/L 21 - 31 mmol/L [facility] Creatinine [Mass/Vol] 0.63 mg/dL 0.50 - 1.20 mg/dL [facility] eGFR, CKD-EPI, Female - PINF [facility] Comment on above: Reported eGFR is bas ed on the CKD-EPI 2020 equation using creatinine, age, and sex. Glucose [Mass/Vol] 91 mg/dL 70 - 99 mg/dL [facility] Osmolality Calc [Osmolality] 292 [facility] Potassium [Moles/Vol] 5.0 mmol/L 3.5 - 5.0 mmol/L [facility] Sodium [Moles/Vol] 138 mmol/L 135 - 145 mmol/L [facility] Urea nitrogen [Mass/Vol] 18 mg/dL 7 - 25 mg/dL [facility] Urea nitrogen/Creatinine [Mass ratio] 29 mg/mg [facility] Anion gap [Moles/Vol] 12 mmol/L Normal 7-17 [facility] Comment on above: Performed By: #### C A, IPB, MGO, CHM7, HFP #### [facility] (DEFAULT) [address] [place] [address] 67636 Chloride [Moles/Vol] 106 mmol/L Normal 98-108 [facility] Comment on above: Performed By: #### C A, IPB, MGO, CHM7, HFP #### [facility] (DEFAULT) [address] [place] [address] CO2 [Moles/Vol] 25 mmol/L Normal 21-31 [facility] Comment on above: Performed By: #### C A, IPB, MGO, CHM7, HFP #### [facility] (DEFAULT) [address] [place] [address] 53844 Creatinine [Mass/Vol] 0.63 mg/dL Normal 0.50-1.20 [facility] Comment on above: Performed By: #### C A, IPB, MGO, CHM7, HFP #### [facility] (DEFAULT) [address] [place] [address] 21781 eGFR, CKD-EPI, Female > Normal >=60 [facility] Comment on above: Result Comment: Repo rted eGFR is based on the CKD-EPI 2020 equation using creatinine, age, and sex. Performed By: #### C A, IPB, MGO, CHM7, HFP #### [facility] (DEFAULT) [address] [place] [address] 38076 Glucose [Mass/Vol] 91 mg/dL Normal 70-99 [facility] Comment on above: Performed By: #### C A, IPB, MGO, CHM7, HFP #### [facility] (DEFAULT) [address] [place] [address] 25988 Osmolality [Osmolality] 292 mosm/kg Normal 278-305 [facility] Comment on above: Performed By: #### C A, IPB, MGO, CHM7, HFP #### [facility] (DEFAULT) [address] [place] [address] 24495 Potassium [Moles/Vol] 5.0 mmol/L Normal 3.5-5.0 [facility] Comment on above: Performed By: #### C A, IPB, MGO, CHM7, HFP #### [facility] (DEFAULT) [address] [place] [address] 55574 Sodium [Moles/Vol] 138 mmol/L Normal 135-145 [facility] Comment on above: Performed By: #### C A, IPB, MGO, CHM7, HFP #### [facility] (DEFAULT) [address] [place] [address] 18944 Urea nitrogen [Mass/Vol] 18 mg/dL Normal 7-25 [facility] Comment on above: Performed By: #### C A, IPB, MGO, CHM7, HFP #### [facility] (DEFAULT) [address] [place] [address] 50267 Urea nitrogen/Creatinine [Mass ratio] 29 mg/mg Normal [facility] Comment on above: Performed By: #### C Riccardo, IPB, MGO, CHM7, HFP #### [facility] (DEFAULT) [address] [place] [address] HEPATIC FUNCTION PANELon Albumin [Mass/Vol] 3.4 g/dL Low 3.5 - 5.0 g/dL [facility] ALP [Catalytic activity/Vol] 195 U/L High 32 - 126 U/L [facility] ALT [Catalytic activity/Vol] 15 U/L 9 - 48 U/L [facility] AST [Catalytic activity/Vol] 35 U/L 10 - 39 U/L [facility] Bilirubin [Mass/Vol] 1.9 mg/dL High NINF - 1.5 mg/dL [facility] Bilirubin.direct [Mass/Vol] 0.6 mg/dL High NINF - 0.3 mg/dL [facility] Protein [Mass/Vol] 6.6 g/dL 6.4 - 8.3 g/dL [facility] Albumin [Mass/Vol] 3.4 g/dL Low 3.5-5.0 [facility] Comment on above: Performed By: #### C Riccardo, IPB, MGO, CHM7, HFP #### [facility] (DEFAULT) [address] [place] [address] ALP [Catalytic activity/Vol] 195 U/L High 32-126 [facility] Comment on above: Performed By: #### C A, IPB, MGO, CHM7, HFP #### [facility] (DEFAULT) [address] [place] [address] ALT [Catalytic activity/Vol] 15 U/L Normal 9-48 [facility] Comment on above: Performed By: #### C A, IPB, MGO, CHM7, HFP #### [facility] (DEFAULT) [address] [place] [address] AST [Catalytic activity/Vol] 35 U/L Normal 10-39 [facility] Comment on above: Performed By: #### C A, IPB, MGO, CHM7, HFP #### [facility] (DEFAULT) [address] [place] [address] 23383 Bilirubin [Mass/Vol] 1.9 mg/dL High <1.5 [facility] Comment on above: Performed By: #### C A, IPB, MGO, CHM7, HFP #### [facility] (DEFAULT) [address] [place] [address] 32627 Bilirubin.indirect [Mass/Vol] 0.6 mg/dL High <0.3 [facility] Comment on above: Performed By: #### C A, IPB, MGO, CHM7, HFP #### [facility] (DEFAULT) [address] [place] [address] 14670 Protein [Mass/Vol] 6.6 g/dL Normal 6.4-8.3 [facility] Comment on above: Performed By: #### C A, IPB, MGO, CHM7, HFP #### [facility] (DEFAULT) [address] [place] [address] 65069 MAGNESIUMon 08-28-2023 Magnesium [Mass/Vol] 1.9 mg/dL 1.6 - 2 .6 mg/dL [facility] Magnesium [Mass/Vol] 1.9 mg/dL Normal 1.6-2.6 [facility] Comment on above: Performed By: #### C A, IPB, MGO, CHM7, HFP #### [facility] (DEFAULT) [address] [place] [address] 57764 No Panel Informationon 08-28 Interpretation and review of laboratory results Normal [facility] Interpretation and review of laboratory results Abnormal [facility] PHOSPHATE, INORGANICon 08-28 Phosphate [Mass/Vol] 2.9 mg/dL 2.2 - 4 .6 mg/dL [facility] Phosphorous 2.9 mg/dL Normal 2.2-4.6 [facility] Comment on above: Performed By: #### C A, IPB, MGO, SHARMILA7, HFP #### [facility] (DEFAULT) [address] [place] [address] 22773 PT,INR,PTTon 08-28-2023 aPTT Coag (PPP) [Time] 40.6 s High [facility] INR Coag (Bld) [Relative time] 1.4 {INR} High 0.9 - 1.1 [facility] Interpretation and review of laboratory results Abnormal [facility] PT Coag (PPP) [Time] 17.3 s High [facility] aPTT Coag (Bld) [Time] 40.6 s High 24.0-34.3 [facility] Comment on above: Performed By: #### MAHENDRA NDIAYE, HFP #### [facility] (DEFAULT) [address] [place] [address] 02029 INR Coag (PPP) [Relative time] 1.4 {INR} High 0.9-1.1 [facility] Comment on above: Performed By: #### MAHENDRA NDIAYE, HFP #### [facility] (DEFAULT) [address] [place] [address] 08436 PT Coag (PPP) [Time] 17.3 s High 11.9-14.2 [facility] Comment on above: Performed By: #### MAHENDRA NDIAYE, HFP #### [facility] (DEFAULT) [address] [place] [address] 80510 TYPE AND SCREENon 08-28-2023 ABO/RH(D) TYPE Positive [facility] ABO/RH(D) TYPE Positive Normal [facility] Comment on above: Performed By: #### MAHENDRA NDIAYE, HFP #### [facility] (DEFAULT) [address] [place] [address] 20796 AFP TUMOR MARKEROrdered By: Karyn Barrera on 08-27-2023 AFP.tumor marker [Mass/Vol] ng/mL NINF - 8.1 ng/mL [facility] Comment on above: This test was perfor med on the [employer] IM Immunoassay platform by [employer] which is a two-site sandwich chemiluminescent immunoassay. It is important to note that assays using different manufacturers and/or methods may not be comparable. Interpretation and review of laboratory results Normal [facility] AFP TUMOR MARKERon 3 AFP Tumor Marker <2.2 Normal <8.1 [facility] Comment on above: Result Comment: This test was performed on the [employer] IM Immunoassay platform by [employer] which is a two-site sandwich chemiluminescent immunoassay. It is important to note that assays using different manufacturers and/or methods may not be comparable. Performed By: #### M GO, CHM7, HFP #### [facility] (DEFAULT) [address] [place] [address] 31410 CBC AND ELECTRONIC DIFFon Abs Baso Auto < Normal 0.00-0.15 [facility] Comment on above: Performed By: #### C A, IPB, MGO, CHM7, HFP #### [facility] (DEFAULT) [address] [place] [address] 21408 Basophils/100 WBC (Bld) 0.5 % Normal [facility] Comment on above: Performed By: #### C A, IPB, MGO, CHM7, HFP #### [facility] (DEFAULT) [address] [place] [address] 34393 DIFF STATUS Electronic Differential Normal [facility] Comment on above: Performed By: #### C A, IPB, MGO, CHM7, HFP #### [facility] (DEFAULT) [address] [place] [address] 63166 Eosinophils (Bld) [#/Vol] 0.14 10*3/uL Normal 0.00-0.42 [facility] Comment on above: Performed By: #### C A, IPB, MGO, CHM7, HFP #### [facility] (DEFAULT) [address] [place] [address] 20375 Eosinophils/100 WBC (Bld) 3.7 % Normal [facility] Comment on above: Performed By: #### Jackelin Gu, IPB, MGO, CHM7, HFP #### [facility] (DEFAULT) [address] [place] [address] 62631 Hematocrit (Bld) [Volume fraction] 36.1 % Normal 34.9-44.3 [facility] Comment on above: Performed By: #### Jackelin Gu, IPB, MGO, CHM7, HFP #### [facility] (DEFAULT) [address] [place] [address] 88437 Hemoglobin (Bld) [Mass/Vol] 11.6 g/dL Normal 11.4-15.2 [facility] Comment on above: Performed By: #### Jackelin Gu, IPB, MGO, CHM7, HFP #### [facility] (DEFAULT) [address] [place] [address] 43473 Immature Grans % 0.3 % Normal [facility] Comment on above: Performed By: #### Jackelin Gu, IPB, MGO, CHM7, HFP #### [facility] (DEFAULT) [address] [place] [address] 10585 Immature Grans Absolute < Normal <=0.08 [facility] Comment on above: Performed By: #### Jackelin A, IPB, MGO, CHM7, HFP #### [facility] (DEFAULT) [address] [place] [address] 58569 Lymphocytes (Bld) [#/Vol] 1.17 10*3/uL Normal 1.16-3.51 [facility] Comment on above: Performed By: #### C A, IPB, MGO, CHM7, HFP #### [facility] (DEFAULT) [address] [place] [address] 27278 Lymphocytes/100 WBC (Bld) 30.7 % Normal [facility] Comment on above: Performed By: #### C A, IPB, MGO, CHM7, HFP #### [facility] (DEFAULT) [address] [place] [address] 74442 MCV (RBC) [Entitic vol] 96.3 fL Normal 79.6-97.7 [facility] Comment on above: Result Comment: Resu lts inconsistent with previous results Performed By: #### C Riccardo, IPB, MGO, CHM7, HFP #### [facility] (DEFAULT) [address] [place] [address] 98513 Mean Cell Hgb 30.9 pg Normal 25.9-33.9 [facility] Comment on above: Performed By: #### Jackelin Gu, IPB, MGO, CHM7, HFP #### [facility] (DEFAULT) [address] [place] [address] 51220 Mean Cell Hgb Conc 32.1 g/dL Normal 31.4-35.9 [facility] Comment on above: Performed By: #### Jackelin A, IPB, MGO, CHM7, HFP #### [facility] (DEFAULT) [address] [place] [address] 19788 Monocytes (Bld) [#/Vol] 0.48 10*3/uL Normal 0.22-0.87 [facility] Comment on above: Performed By: #### C A, IPB, MGO, CHM7, HFP #### [facility] (DEFAULT) [address] [place] [address] 94634 Monocytes/100 WBC (Bld) 12.6 % Normal [facility] Comment on above: Performed By: #### C A, IPB, MGO, CHM7, HFP #### [facility] (DEFAULT) [address] [place] [address] 45805 Nucleated RBC 0.0 /100 WBC Normal <=0.2 [facility] Comment on above: Performed By: #### C A, IPB, MGO, CHM7, HFP #### [facility] (DEFAULT) [address] [place] [address] 61007 Platelet mean volume (Bld) [Entitic vol] 10.7 fL Normal 8.5-12.2 [facility] Comment on above: Performed By: #### C A, IPB, MGO, CHM7, HFP #### [facility] (DEFAULT) [address] [place] [address] 99787 Platelets (Bld) [#/Vol] 113 10*3/uL Low 150-393 [facility] Comment on above: Performed By: #### C A, IPB, MGO, CHM7, HFP #### [facility] (DEFAULT) [address] [place] [address] 61271 RBC (Bld) [#/Vol] 3.75 10*6/uL Low 3.91-5.04 [facility] Comment on above: Performed By: #### C A, IPB, MGO, CHM7, HFP #### [facility] (DEFAULT) [address] [place] [address] 48427 RBC Distribution 14.6 % Normal 10.8-14.9 [facility] Comment on above: Performed By: #### C A, IPB, MGO, CHM7, HFP #### [facility] (DEFAULT) [address] [place] [address] 79536 Segs + Bands Auto 52.2 % Normal [facility] Comment on above: Performed By: #### C A, IPB, MGO, CHM7, HFP #### [facility] (DEFAULT) [address] [place] [address] 67465 Segs + Bands,Absolute Auto 1.99 K/uL Normal 1.64-7.28 [facility] Comment on above: Performed By: #### C A, IPB, MGO, CHM7, HFP #### [facility] (DEFAULT) [address] [place] [address] 80894 WBC (Bld) [#/Vol] 3.81 10*3/uL Low 3.99-11.19 [facility] Comment on above: Performed By: #### C CHETAN Gu, ZAIRE, SHARMILA7, HFP #### [facility] (DEFAULT) [address] [place] [address] CHEM 6 (LYTES, BUN CREA)on Anion gap [Moles/Vol] 12 mmol/L 7 - 17 [facility] [Moles/Vol] 103 mmol/L 98 - 10 8 [facility] CO2 [Moles/Vol] 27 mmol/L 21 - 31 mmol/L [facility] Creatinine [Mass/Vol] 0.58 mg/dL 0.50 - 1.20 mg/dL [facility] eGFR, CKD-EPI, Female - PINF [facility] Comment on above: Reported eGFR is bas ed on the CKD-EPI 2020 equation using creatinine, age, and sex. Potassium [Moles/Vol] 4.1 mmol/L 3.5 - 5.0 mmol/L [facility] Sodium [Moles/Vol] 138 mmol/L 135 - 145 mmol/L [facility] Urea nitrogen [Mass/Vol] 17 mg/dL 7 - 25 mg/dL [facility] Urea nitrogen/Creatinine [Mass ratio] 29 mg/mg [facility] Anion gap [Moles/Vol] 12 mmol/L Normal 7-17 [facility] Comment on above: Performed By: #### MAHENDRA NDIAYE, HFP #### [facility] (DEFAULT) [address] [place] [address] Chloride [Moles/Vol] 103 mmol/L Normal 98-108 [facility] Comment on above: Performed By: #### MAHENDRA NDIAYE, HFP #### [facility] (DEFAULT) [address] [place] [address] CO2 [Moles/Vol] 27 mmol/L Normal 21-31 [facility] Comment on above: Performed By: #### MAHENDRA NDIAYE, HFP #### [facility] (DEFAULT) [address] [place] [address] Creatinine [Mass/Vol] 0.58 mg/dL Normal 0.50-1.20 [facility] Comment on above: Performed By: #### MAHENDRA NDIAYE, HFP #### [facility] (DEFAULT) [address] [place] [id number] eGFR, CKD-EPI, Female > Normal >=60 [facility] Comment on above: Result Comment: Repo rted eGFR is based on the CKD-EPI 2020 equation using creatinine, age, and sex. Performed By: #### MAHENDRA NDIAYE, HFP #### [place] [facility] (DEFAULT) [address] [place] [address] Potassium [Moles/Vol] 4.1 mmol/L Normal 3.5-5.0 [facility] Comment on above: Performed By: #### MAHENDRA NDIAYE, HFP #### [facility] (DEFAULT) [address] [place] [address] Sodium [Moles/Vol] 138 mmol/L Normal 135-145 [facility] Comment on above: Performed By: #### MAHENDRA NDIAYE, HFP #### [facility] (DEFAULT) [address] [place] [address] Urea nitrogen [Mass/Vol] 17 mg/dL Normal 7-25 [facility] Comment on above: Performed By: #### MAHENDRA NDIAYE, HFP #### [facility] (DEFAULT) [address] [place] [address] Urea nitrogen/Creatinine [Mass ratio] 29 mg/mg Normal [facility] Comment on above: Performed By: #### MAHENDRA NDIAYE, HFP #### [facility] (DEFAULT) [address] [place] [address] Cardiac echo study Procedure Ordered By: Kathy Luis on 08-27-2023 Ao arch [facility] 1.56 cm/[facility] Work [facility]: Ao ASC index 1.90 cm/m2 [facility] Work Phone: Ao peak venita 1.31 m/s [facility] Work [facility]: Ao SOV index 1.60 cm/m2 [facility] Work Phone: Ao STJ index 1.41 cm/m2 [facility] Work Phone: Ao VTI 28.13 cm [facility] Work Phone: Aortic arch 2.83 cm [facility] Work Phone: [facility] 3.[facility] AV LVOT peak gradient 3 mmHg [facility]: [facility] gradient 4 [facility]: [facility] peak gradient 7 mmHG [facility]: AV valve area 2.18 cm2 [facility] Work Phone: AV Velocity Ratio 0.64 [facility] Work Phone: KAYLA (continuity Vmax) 2.14 cm2 [facility] Work Phone: KAYLA (continuity VTI) 2.18 cm2 [facility] Work Phone: KAYLA index (continuity Vmax) 1.18 m/s [facility] Work Phone: KAYLA index (continuity VTI) 1.20 cm2/m2 [facility] Work Phone: Avg e' pk venita 0.09 m/s [facility] Work Phone: Avg E/e' ratio 8.44 [facility] Work Phone: Body surface area Derived from formula 1.81 m2 [facility] Work Phone: BP EF 59 % [facility] Work Phone: DI (Vmax) 0.64 [facility] Work Phone: DI (VTI) 0.65 m/2 [facility] Work Phone: E wave decelartion time 280.24 msec [facility] Work Phone: e' lateral pk venita 0.1141 [facility]: e' lateral pk venita 0.11 m/s [facility]: e' septal pk venita 0.0652 m/s [facility] Work Phone: e' septal pk venita 0.07 m/s [facility] Work Phone: E/A ratio 0.91 [facility] Work Phone: E/e' lateral [facility] 6.13 [facility]: E/e' septal [facility] 10.74 [facility]: EF SP 2CH 60 [facility] Work Phone: EF SP 4CH 58 [facility] Work Phone: FS 40 % 28 - 44 % [facility] Work Phone: IVS 0.66 cm [facility] Work Phone: LA AREA 2CH 22.80 cm2 [facility] Work Phone: LA area 4CH 20.52 cm2 [facility] Work Phone: LA ESV BP (MOD) 58 mL [facility] Work Phone: LA ESV BP (MOD) index 32 mL/m2 [facility] Work Phone: LA ESV SP 2CH (MOD) 66 mL [facility] Work Phone: LA ESV SP 4CH (MOD) 49 mL [facility] Work Phone: LV EDV BP 108 mL [facility] Work Phone: LV EDV SP 2CH 112 mL [facility] Work Phone: LV EDV SP 4CH 103 mL [facility] Work Phone: LV ESV BP 44 mL [facility] Work Phone: LV ESV SP 2CH 45 mL [facility] Work Phone: LV ESV SP 4CH 43 mL [facility] Work Phone: LV mass 97.09 g [facility] Work Phone: LV Mass Index 53.6 g/m2 [facility] Work Phone: LV RWT 0.25 [facility] Work Phone: LV stroke volume BP (ml) 64 mL [facility] Work Phone: LV stroke volume index BP 35.36 mL/m2 [facility] Work Phone: LVIDD 4.87 cm [facility] Work Phone: LVIDS 2.93 cm [facility] Work Phone: LVOT area 3.33 cm2 [facility] Work Phone: LVOT diameter 2.06 cm [facility] Work Phone: LVOT peak venita 0.84 m/s [facility] Work Phone: LVOT peak VTI 18.41 cm [facility] Work Phone: LVOT stroke volume 61 cm3 [facility] Work Phone: LVOT stroke volume index 33.88 ml/m2 [facility] Work Phone: MV mean gradient 2.00 mmHg [facility] Work Phone: MV pk A venita 0.77 m/s [facility] Work Phone: MV pk E venita 0.70 m/s [facility] Work Phone: MV stenosis pressure 1/2 time 81.27 ms [facility] Work Phone: MV valve area by continuity eq 2.34 cm2 [facility] Work Phone: MV valve area p 1/2 method 2.71 cm2 [facility] Work Phone: MV VTI 26.20 cm [facility] Work Phone: [facility] AV VTI RATIO PRE STRESS 0.65 [facility] Work Phone: [facility] ECHO LV BIPLANE SYSTOLIC VOLUME INDEX 24.31 mL/m2 [facility] Work Phone: [facility] ECHO LV BP DIASTOLIC VOLUME INDEX 59.67 mL/m2 [facility] Work Phone: [facility] RVOT VTI RATIO 0.73 [facility] Work [facility]: PV mean gradient 2 mmHg [facility] Work Phone: PV peak gradient 4 mmHg [facility] Work Phone: PV PK VENITA 0.96 m/s [facility] Work Phone: PV VTI 19.15 cm [facility] Work Phone: PW 0.61 cm [facility] Work Phone: RVOT peak gradient 2 mmHg [facility] Work Phone: RVOT peak venita 0.66 m/s [facility] Work Phone: RVOT peak VTI 13.91 cm [facility] Work Phone: Sinus 2.90 cm [facility] Work Phone: STJ 2.55 cm [facility] Work Phone: Stroke Volume 61 cm/mL [facility] Work Phone: [facility]roke [facility] Work Phone: Cardiac echo study Procedure on 08-27-2023 Very technically challenging study despite the use of contrast. Poor apical windows Overall, suspect normal left ventricular size and systolic function. LVEF of approximately 55-60%. Normal diastolic function Right sided chambers not well seen No obvious significant valvular abnormalities Unable to assess RVSP due to poor TR jet signal Agitated saline study performed using off axis views. No obvious shunt seen but sensitivity severely reduced due to poor image quality Fluid collection seen posterior to right atrium in limited apical views - suspect ascites Left Ventricle Left ventricle not well visualized. Chamber size is normal. Normal wall thickness. Normal global systolic function. Regional wall motion is normal. Ejection fraction is normal (55 - 60%). Diastolic function is normal. Right Ventricle Right ventricle not well visualized. Left Atrium Chamber size is normal. Right Atrium Right atrium not well visualized. IVC/SVC The inferior vena cava is normal in size. Mitral Valve Normal appearing leaflets. Leaflet mobility is normal. Mild annular calcification. Trace regurgitation. No valve stenosis. Tricuspid Valve Normal leaflets. Leaflet mobility is normal. Trace regurgitation. No stenosis. Pulmonary artery systolic pressure (PASP) is unable to be estimated. Aortic Valve Trileaflet valve. Non-specific thickening. Leaflet mobility is normal. No regurgitation. No stenosis. Pulmonic Valve Pulmonic valve not well visualized. No regurgitation. No stenosis. Pericardium No pericardial effusion. Ascites is present. Septum The atrial septum is normal. No evidence of patent foramen ovale determined by color flow and saline contrast. Aorta No dilation to extent seen. SOV: 2.90 cm. Ascendin.44 cm. Study Details A complete echocardiography study (including agitated saline contrast and microbubbles) was performed. Contrast indication: evaluation of left ventricle contiguous segments. Study limitations include poor cardiac windows and technically difficult study. Imaging system used: Siemens. Indications Indications for study: pre-op. Wall Scoring Score Index: 1.00 The left ventricular wall motion is normal. [facility] Radiology Study observation (narrative) [facility] ECHOCARDIOGRAMon 08-27-2023 Echocardiography Very technically challenging study despite the use of contrast. Poor apical windows Overall, suspect normal left ventricular size and systolic function. LVEF of approximately 55-60%. Normal diastolic function Right sided chambers not well seen No obvious significant valvular abnormalities Unable to assess RVSP due to poor TR jet signal Agitated saline study performed using off axis views. No obvious shunt seen but sensitivity severely reduced due to poor image quality Fluid collection seen posterior to right atrium in limited apical views - suspect ascites Table formatting from the original result was not included. Images from the original result were not included. Patient Information Patient Name Madhavi Flower Legal Sex Female Indication for Exam Priority: Routine Dx: Other ascites [R18.8 (ICD-10-CM)] Comments: Cirrhosis being evaluated for TIPS. Had echo 03/20 with poor quality images, no EF calculation. Please repeat study. Interpretation Summary Very technically challenging study despite the use of contrast. Poor apical windows Overall, suspect normal left ventricular size and systolic function. LVEF of approximately 55-60%. Normal diastolic function Right sided chambers not well seen No obvious significant valvular abnormalities Unable to assess RVSP due to poor TR jet signal Agitated saline study performed using off axis views. No obvious shunt seen but sensitivity severely reduced due to poor image quality Fluid collection seen posterior to right atrium in limited apical views - suspect ascites Findings Left Ventricle Left ventricle not well visualized. Chamber size is normal. Normal wall thickness. Normal global systolic function. Regional wall motion is normal. Ejection fraction is normal (55 - 60%). Diastolic function is normal. Right Ventricle Right ventricle not well visualized. Left Atrium Chamber size is normal. Right Atrium Right atrium not well visualized. Septum The atrial septum is normal. No evidence of patent foramen ovale determined by color flow and saline contrast. Mitral Valve Normal appearing leaflets. Leaflet mobility is normal. Mild annular calcification. Trace regurgitation. No valve stenosis. Aortic Valve Trileaflet valve. Non-specific thickening. Leaflet mobility is normal. No regurgitation. No stenosis. Tricuspid Valve Normal leaflets. Leaflet mobility is normal. Trace regurgitation. No stenosis. Pulmonary artery systolic pressure (PASP) is unable to be estimated. Pulmonic Valve Pulmonic valve not well visualized. No regurgitation. No stenosis. Aorta No dilation to extent seen. SOV: 2.90 cm. Ascendin.44 cm. Pericardium No pericardial effusion. Ascites is present. IVC/SVC The inferior vena cava is normal in size. Reading Providers Reading Role Read Date Vaiileti Luis MD Echo [facility] 08/27/2023 Wall Scoring Score Index: 1.00 The left ventricular wall motion is normal. Left Heart Measurements LV - Systole LVIDD 4.87 cm IVS 0.66 cm LVIDS 2.93 cm PW 0.61 cm LV RWT 0.25 LV Mass Index 53.6 g/m2 LV EDV BP 108 mL LV ESV BP 44 mL BP EF 59 % LV stroke volume BP (ml) 64 mL LV stroke volume index BP 35.36 mL/m2 LV - Diastole MV pk E venita 0.7 m/s MV pk A venita 0.77 m/s E/A ratio 0.91 e' septal pk venita 0.07 m/s e' lateral pk venita 0.11 m/s Avg e' pk venita 0.09 m/s E/e' septal ratio 10.74 E/e' lateral ratio 6.13 Avg E/e' ratio 8.44 LV - HCM AV LVOT peak gradient 3 mmHg Left Atrium LA ESV SP 4CH (MOD) 49 mL LA ESV SP 2CH (MOD) 66 mL LA ESV BP (MOD) index 32 mL/m2 Great Vessels Aortic Root - End Diastolic Sinus 2.9 cm STJ 2.55 cm Ascending aorta 3.44 cm Aortic arch 2.83 cm Doppler Measurements - Aortic Valve Stenosis LVOT diameter 2.06 cm LVOT area 3.33 cm2 LVOT peak venita 0.84 m/s LVOT peak VTI 18.41 cm Stroke Volume 61 cm/mL Stroke volume index 34 Ao peak venita 1.31 m/s Ao VTI 28.13 cm AV peak gradient 7 mmHG AV mean gradient 4 mmHg DI (VTI) 0.65 m/2 DI (Vmax) 0.64 KAYLA (continuity Vmax) 2.14 cm2 KAYLA index (continuity Vmax) 1.18 m/s KAYLA (continuity VTI) 2.18 cm2 KAYLA index (continuity VTI) 1.2 cm2/m2 LVOT stroke volume 61 cm3 LVOT stroke volume index 33.88 ml/m2 Doppler Measurements - Mitral Valve Stenosis MV pk E venita 0.7 m/s MV pk A venita 0.77 m/s E/A ratio 0.91 MV VTI 26.2 cm MV stenosis pressure 1/2 time 81.27 ms MV mean gradient 2 mmHg MV valve area p 1/2 method 2.71 cm2 MV valve area by continuity eq 2.34 cm2 PISA-MS MV pk E venita 0.7 m/s Doppler Measurements - Pulmonic Valve Stenosis PV PK VENITA 0.96 m/s PV VTI 19.15 cm PV peak gradient 4 mmHg PV mean (more content not included)... Normal [facility] HEPATIC FUNCTION PANELon Albumin [Mass/Vol] 3.1 g/dL Low 3.5 - 5.0 g/dL [facility] ALP [Catalytic activity/Vol] 165 U/L High 32 - 126 U/L [facility] ALT [Catalytic activity/Vol] 15 U/L 9 - 48 U/L [facility] AST [Catalytic activity/Vol] 25 U/L 10 - 39 U/L [facility] Bilirubin [Mass/Vol] 2.2 mg/dL High NINF - 1.5 mg/dL [facility] Bilirubin.direct [Mass/Vol] 0.7 mg/dL High NINF - 0.3 mg/dL [facility] Interpretation and review of laboratory results Abnormal [facility] Protein [Mass/Vol] 6.0 g/dL Low 6.4 - 8.3 g/dL [facility] Albumin [Mass/Vol] 3.1 g/dL Low 3.5-5.0 [facility] Comment on above: Performed By: #### MAHENDRA NDIYAE, HFP #### [facility] (DEFAULT) [address] [place] [address] ALP [Catalytic activity/Vol] 165 U/L High 32-126 [facility] Comment on above: Performed By: #### MAHENDRA NDIAYE, HFP #### [facility] (DEFAULT) [address] [place] [address] 04093 ALT [Catalytic activity/Vol] 15 U/L Normal 9-48 [facility] Comment on above: Performed By: #### MAHENDRA NDIAYE, HFP #### [facility] (DEFAULT) [address] [place] [address] 99400 AST [Catalytic activity/Vol] 25 U/L Normal 10-39 [facility] Comment on above: Performed By: #### MAHENDRA NDIAYE, HFP #### [facility] (DEFAULT) [address] [place] [address] 41381 Bilirubin [Mass/Vol] 2.2 mg/dL High <1.5 [facility] Comment on above: Performed By: #### MAHENDRA NDIAYE, HFP #### [facility] (DEFAULT) [address] [place] [address] 78576 Bilirubin.indirect [Mass/Vol] 0.7 mg/dL High <0.3 [facility] Comment on above: Performed By: #### MAHENDRA NDIAYE, HFP #### [facility] (DEFAULT) [address] [place] [address] 43572 Protein [Mass/Vol] 6.0 g/dL Low 6.4-8.3 [facility] Comment on above: Performed By: #### MAHENDRA NDIAYE, HFP #### [facility] (DEFAULT) [address] [place] [address] 68773 No Panel Informationon 08-27 [facility] PROTIME-INRon 08-27-2023 INR Coag (Bld) [Relative time] 1.6 {INR} High 0.9 - 1.1 [facility] Interpretation and review of laboratory results Abnormal [facility] PT Coag (PPP) [Time] 18.5 s High [facility] INR Coag (PPP) [Relative time] 1.6 {INR} High 0.9-1.1 [facility] Comment on above: Performed By: #### M MAHENDRA SANCHEZ, HFP #### [facility] (DEFAULT) [address] [place] [address] PT Coag (PPP) [Time] 18.5 s High 11.9-14.2 [facility] Comment on above: Performed By: #### MAHENDRA NDIAYE, HFP #### [facility] (DEFAULT) [address] [place] [address] CHEM 6 (LYTES, BUN CREA)on Anion gap [Moles/Vol] 7 mmol/L 7 - 17 mmol/L [facility] Chloride [Moles/Vol] 107 mmol/L 98 - 10 8 mmol/L [facility] CO2 [Moles/Vol] 30 mmol/L 21 - 31 mmol/L [facility] Creatinine [Mass/Vol] 0.60 mg/dL 0.50 - 1.20 mg/dL [facility] eGFR, CKD-EPI, Female - PINF [facility] Comment on above: Reported eGFR is bas ed on the CKD-EPI 2020 equation using creatinine, age, and sex. Potassium [Moles/Vol] 4.1 mmol/L 3.5 - 5.0 mmol/L [facility] Sodium [Moles/Vol] 140 mmol/L 135 - 145 mmol/L [facility] Urea nitrogen [Mass/Vol] 18 mg/dL 7 - 25 mg/dL [facility] Urea nitrogen/Creatinine [Mass ratio] 30 mg/mg [facility] Anion gap [Moles/Vol] 7 mmol/L Normal 7-17 [facility] Comment on above: Performed By: #### C A, IPB, MGO, CHM7, HFP #### [facility] (DEFAULT) [address] [place] [address] Chloride [Moles/Vol] 107 mmol/L Normal 98-108 [facility] Comment on above: Performed By: #### C A, IPB, MGO, CHM7, HFP #### [facility] (DEFAULT) [address] [place] [address] [phone] CO2 [Moles/Vol] 30 mmol/L Normal 21-31 [facility] Comment on above: Performed By: #### C A, IPB, MGO, CHM7, HFP #### [facility] (DEFAULT) [address] [place] [address] 37782 Creatinine [Mass/Vol] 0.60 mg/dL Normal 0.50-1.20 [facility] Comment on above: Performed By: #### C A, IPB, MGO, CHM7, HFP #### [facility] (DEFAULT) [address] [place] [address] 36958 eGFR, CKD-EPI, Female > Normal >=60 [facility] Comment on above: Result Comment: Repo rted eGFR is based on the CKD-EPI 2021 equation using creatinine, age, and sex. Performed By: #### C A, IPB, MGO, CHM7, HFP #### [facility] (DEFAULT) [address] [place] [address] 48101 Potassium [Moles/Vol] 4.1 mmol/L Normal 3.5-5.0 [facility] Comment on above: Performed By: #### C A, IPB, MGO, CHM7, HFP #### [facility] (DEFAULT) [address] [place] [address] 90055 Sodium [Moles/Vol] 140 mmol/L Normal 135-145 [facility] Comment on above: Performed By: #### C A, IPB, MGO, CHM7, HFP #### [facility] (DEFAULT) [address] [place] [address] Urea nitrogen [Mass/Vol] 18 mg/dL Normal 7-25 [facility] Comment on above: Performed By: #### C A, IPB, MGO, CHM7, HFP #### [facility] (DEFAULT) [address] [place] [address] Urea nitrogen/Creatinine [Mass ratio] 30 mg/mg Normal [facility] Comment on above: Performed By: #### C A, IPB, MGO, CHM7, HFP #### [facility] (DEFAULT) [address] [place] [address] HEPATIC FUNCTION PANELon Albumin [Mass/Vol] 3.1 g/dL Low 3.5 - 5.0 g/dL [facility] ALP [Catalytic activity/Vol] 187 U/L High 32 - 126 U/L [facility] ALT [Catalytic activity/Vol] 21 U/L 9 - 48 U/L [facility] AST [Catalytic activity/Vol] 40 U/L High 10 - 39 U/L [facility] Bilirubin [Mass/Vol] 1.6 mg/dL [facility]dL [facility] Bilirubin.direct [Mass/Vol] 0.6 mg/dL High NINF - 0.3 mg/dL [facility] Interpretation and review of laboratory results Abnormal [facility] Protein [Mass/Vol] 5.9 g/dL Low 6.4 - 8.3 g/dL [facility] Albumin [Mass/Vol] 3.1 g/dL Low 3.5-5.0 [facility] Comment on above: Performed By: #### C A, IPB, MGO, CHM7, HFP #### [facility] (DEFAULT) [address] [place] [address] ALP [Catalytic activity/Vol] 187 U/L High 32-126 [facility] Comment on above: Performed By: #### C A, IPB, MGO, CHM7, HFP #### [facility] (DEFAULT) [address] [place] [address] 68332 ALT [Catalytic activity/Vol] 21 U/L Normal 9-48 [facility] Comment on above: Performed By: #### C A, IPB, MGO, CHM7, HFP #### [facility] (DEFAULT) [address] [place] [address] 60122 AST [Catalytic activity/Vol] 40 U/L High 10-39 [facility] Comment on above: Performed By: #### C A, IPB, MGO, CHM7, HFP #### [facility] (DEFAULT) [address] [place] [address] 11220 Bilirubin [Mass/Vol] 1.6 mg/dL High <1.5 [facility] Comment on above: Performed By: #### C A, IPB, MGO, CHM7, HFP #### [facility] (DEFAULT) [address] [place] [address]197 Bilirubin.indirect [Mass/Vol] 0.6 mg/dL High <0.3 [facility] Comment on above: Performed By: #### C A, IPB, MGO, CHM7, HFP #### [facility] (DEFAULT) [address] [place] [address] 80927 Protein [Mass/Vol] 5.9 g/dL Low 6.4-8.3 [facility] Comment on above: Performed By: #### C A, IPB, MGO, CHM7, HFP #### [facility] (DEFAULT) [address] [place] [address] 77033 No Panel Informationon 08-10 [facility] PROTIME-INRon 08-10-2023 INR Coag (Bld) [Relative time] 1.6 {INR} High 0.9 - 1.1 [facility] Interpretation and review of laboratory results Abnormal [facility] PT Coag (PPP) [Time] 19.1 s High [facility] [Relative time] 1.6 {INR} High 0.9-1.1 [facility] Comment on above: Performed By: #### C A, IPB, MGO, CHM7, HFP #### [facility] (DEFAULT) [address] [place] [address] PT Coag (PPP) [Time] 19.1 s High 11.9-14.2 [facility] Comment on above: Performed By: #### C A, IPB, MGO, CHM7, HFP #### [facility] (DEFAULT) [address] [place] [address] CT ABDOMEN/PELVIS WITH CONTR Kaleb 07-06-2023 CT ABDOMEN/PELVIS WITH CONTRAST EXAM: CT ABDOMEN/PELVIS WITH CONTRAST COMPARISON: None CLINICAL INDICATIONS: Cirrhosis with ascites being evaluated for TIPS. Decompensated cirrhosis from [place], with recurrent ascites requiring frequent paracenteses. History of esophageal varices status post banding. TECHNIQUE: CT scanning was performed through the abdomen and pelvis following the administration of intravenous contrast. PROTOCOL: Standard FINDINGS: LOWER THORAX: Right-sided volume loss partially visualized. Suspected extensive bronchiectatic changes with bronchial wall thickening seen in the visualized right lower lobe. LIVER: Shrunken, nodular liver, compatible with cirrhosis. No focal hepatic lesions visualized on portal venous phase. The main portal vein is patent. The hepatic veins are grossly patent. BILIARY: Probable prior cholecystectomy. No biliary dilatation. PANCREAS: Unremarkable. SPLEEN: The spleen is enlarged, 15.4 cm in length. No focal splenic lesions. ADRENAL GLANDS: Unremarkable. KIDNEYS/URETERS: Unremarkable. PELVIC ORGANS/BLADDER: The uterus, adnexa and underdistended bladder are grossly unremarkable. GI TRACT: Colonic diverticulosis. Underdistension of the colon slightly limits evaluation. No definite focal bowel wall thickening. No bowel obstruction. The stomach is grossly unremarkable. PERITONEUM: Large ascites. No free air. LYMPH NODES: No pathologically enlarged lymph nodes. VESSELS: Mild atherosclerosis. No abdominal aortic aneurysm. Portosystemic collaterals including upper abdominal and periumbilical varices. BONES AND SOFT TISSUES: Moderate umbilical hernia containing fat and loculated ascites. Mild anasarca. A few subcutaneous nodules in bilateral gluteal regions, likely related to prior injections. No acute or suspicious bony abnormality. IMPRESSION: 1. Cirrhosis with stigmata of portal hypertension, including splenomegaly, large ascites and portosystemic collaterals. 2. Moderate umbilical hernia containing fat and loculated ascites. 3. Partial visualization of severe bronchiectatic changes in the right lower lobe with bronchial wall thickening and volume loss. Elen Flores M.D. This report has been electronically signed and verified by the Radiologist whose name is printed above. / This report contains privileged and confidential information and is intended solely for the use of the individual or entity to which it is addressed. If you are not the intended recipient of this report, you are hereby notified that any copying, distribution, dissemination or action taken in relation to the contents of this report is strictly prohibited and may be unlawful. If you have received this report in error, please notify the sender immediately at [phone] and permanently delete the original report and destroy any copies or printouts. Normal [facility] CREAT/GFRon 07-05-2023 Creatinine [Mass/Vol] 0.49 mg/dL Low 0.50 - 1.20 mg/dL [facility] GFR/1.73 sq M.predicted CKD-EPI (S/P/Bld) [Vol rate/Area] - PINF [facility] Comment on above: Reported eGFR is bas ed on the CKD-EPI 2020 equation using creatinine, age, and sex. Interpretation and review of laboratory results Abnormal [facility] Test performed at address of the patient encounter. [facility] AFP TUMOR MARKEROrdered By: Edwige Dunn on 05-23-2023 AFP.tumor marker [Mass/Vol] ng/mL NINF - 8.1 ng/mL [facility] Comment on above: This test was perfor med on the edulio IM Immunoassay platform by [employer] which is a two-site sandwich chemiluminescent immunoassay. It is important to note that assays using different manufacturers and/or methods may not be comparable. Interpretation and review of laboratory results Normal [facility] AFP TUMOR MARKERon 3 AFP Tumor Marker <2.2 Normal <8.1 [facility] Comment on above: Result Comment: This test was performed on the PolyRemedy Immunoassay platform by [employer] which is a two-site sandwich chemiluminescent immunoassay. It is important to note that assays using different manufacturers and/or methods may not be comparable. Performed By: #### M GO, CHM7, HFP #### [facility] (DEFAULT) [address] [place] [address] CBC AND ELECTRONIC DIFFon Abs Baso Auto < Normal 0.00-0.15 [facility] Comment on above: Performed By: #### C A, IPB, MGO, CHM7, HFP #### [facility] (DEFAULT) [address] [place] [address] Basophils/100 WBC (Bld) 0.5 % Normal [facility] Comment on above: Performed By: #### C A, IPB, MGO, CHM7, HFP #### [facility] (DEFAULT) [address] [place] [address] DIFF STATUS Electronic Differential Normal [facility] Comment on above: Performed By: #### C A, IPB, MGO, CHM7, HFP #### [facility] (DEFAULT) [address] [place] [address] Eosinophils (Bld) [#/Vol] 0.13 10*3/uL Normal 0.00-0.42 [facility] Comment on above: Performed By: #### C A, IPB, MGO, CHM7, HFP #### [facility] (DEFAULT) [address] [place] [address]6035 Eosinophils/100 WBC (Bld) 3.5 % Normal [facility] Comment on above: Performed By: #### C A, IPB, MGO, CHM7, HFP #### [facility] (DEFAULT) [address] [place] [address] Hematocrit (Bld) [Volume fraction] 35.3 % Normal 34.9-44.3 [facility] Comment on above: Performed By: #### Jackelin Gu, SAMB, MGO, CHM7, HFP #### [facility] (DEFAULT) [address] [place] [address] Hemoglobin (Bld) [Mass/Vol] 11.5 g/dL Normal 11.4-15.2 [facility] Comment on above: Performed By: #### Jackelin Gu, IPB, MGO, CHM7, HFP #### [facility] (DEFAULT) [address] [place] [address] 35872 Immature Grans % 0.3 % Normal [facility] Comment on above: Performed By: #### Jackelin Gu, IPB, MGO, CHM7, HFP #### [facility] (DEFAULT) [address] [place] [address] Immature Grans Absolute < Normal <=0.08 [facility] Comment on above: Performed By: #### Jackelin Gu, IPB, MGO, CHM7, HFP #### [facility] (DEFAULT) [address] [place] [address] 22987 Lymphocytes (Bld) [#/Vol] 1.14 10*3/uL Low 1.16-3.51 [facility] Comment on above: Performed By: #### Jackelin Gu, IPB, MGO, CHM7, HFP #### [facility] (DEFAULT) [address] [place] [address] 31980 Lymphocytes/100 WBC (Bld) 31.0 % Normal [facility] Comment on above: Performed By: #### Jackelin Gu, IPB, MGO, CHM7, HFP #### [facility] (DEFAULT) [address] [place] [address]4470 MCV (RBC) [Entitic vol] 91.5 fL Normal 79.6-97.7 [facility] Comment on above: Performed By: #### Jackelin Gu IPB, MGO, CHM7, HFP #### [facility] (DEFAULT) [address] [place] [address] 96128 Mean Cell Hgb 29.8 pg Normal 25.9-33.9 [facility] Comment on above: Performed By: #### C A, IPB, MGO, CHM7, HFP #### [facility] (DEFAULT) [address] [place] [address] 45986 Mean Cell Hgb Conc 32.6 g/dL Normal 31.4-35.9 [facility] Comment on above: Performed By: #### C A, IPB, MGO, CHM7, HFP #### [facility] (DEFAULT) [address] [place] [address] 36524 Monocytes (Bld) [#/Vol] 0.48 10*3/uL Normal 0.22-0.87 [facility] Comment on above: Performed By: #### C A, IPB, MGO, CHM7, HFP #### [facility] (DEFAULT) [address] [place] [address] 69835 Monocytes/100 WBC (Bld) 13.0 % Normal [facility] Comment on above: Performed By: #### C A, IPB, MGO, CHM7, HFP #### [facility] (DEFAULT) [address] [place] [address] 86901 Nucleated RBC 0.0 /100 WBC Normal <=0.2 [facility] Comment on above: Performed By: #### C A, IPB, MGO, CHM7, HFP #### [facility] (DEFAULT) [address] [place] [address] 06141 Platelet mean volume (Bld) [Entitic vol] 11.4 fL Normal 8.5-12.2 [facility] Comment on above: Performed By: #### C A, IPB, MGO, CHM7, HFP #### [facility] (DEFAULT) [address] [place] [address] 18888 Platelets (Bld) [#/Vol] 118 10*3/uL Low 150-393 [facility] Comment on above: Performed By: #### C A, IPB, MGO, CHM7, HFP #### [facility] (DEFAULT) [address] [place] [address] 25639 RBC (Bld) [#/Vol] 3.86 10*6/uL Low 3.91-5.04 [facility] Comment on above: Performed By: #### C A, IPB, MGO, CHM7, HFP #### [facility] (DEFAULT) [address] [place] [address] 77628 RBC Distribution 15.6 % High 10.8-14.9 [facility] Comment on above: Performed By: #### C A, IPB, MGO, CHM7, HFP #### [facility] (DEFAULT) [address] [place] [address] 87438 Segs + Bands Auto 51.7 % Normal [facility] Comment on above: Performed By: #### C A, IPB, MGO, CHM7, HFP #### [facility] (DEFAULT) [address] [place] [address] 51557 Segs + Bands,Absolute Auto 1.90 K/uL Normal 1.64-7.28 [facility] Comment on above: Performed By: #### C A, IPB, MGO, CHM7, HFP #### [facility] (DEFAULT) [address] [place] [address] 48628 WBC (Bld) [#/Vol] 3.68 10*3/uL Low 3.99-11.19 [facility] Comment on above: Performed By: #### C A, IPB, MGO, CHM7, HFP #### [facility] (DEFAULT) [address] [place] [address] 90017 COMPREHENSIVE METABOLIC PANE Rory 05-23-2023 Albumin [Mass/Vol] 3.1 g/dL Low 3.5 - 5.0 g/dL [facility] ALP [Catalytic activity/Vol] 200 U/L High 32 - 126 U/L [facility] ALT [Catalytic activity/Vol] 15 U/L 9 - 48 U/L [facility] Anion gap [Moles/Vol] 10 mmol/L 7 - 17 mmol/L [facility] AST [Catalytic activity/Vol] 31 U/L 10 - 39 U/L [facility] Bilirubin [Mass/Vol] 1.4 mg/dL NINF - 1.5 mg/dL [facility] Calcium [Mass/Vol] 7.8 mg/dL Low 8.6 - 10. 5 mg/dL [facility] Chloride [Moles/Vol] 106 mmol/L 98 - 10 8 mmol/L [facility] CO2 [Moles/Vol] 27 mmol/L 21 - 31 mmol/L [facility] Creatinine [Mass/Vol] 0.62 mg/dL 0.50 - 1.20 mg/dL [facility] GFR/1.73 sq M.predicted CKD-EPI (S/P/Bld) [Vol rate/Area] - PINF [facility] Comment on above: Reported eGFR is bas ed on the CKD-EPI 2020 equation using creatinine, age, and sex. Glucose [Mass/Vol] 90 mg/dL 70 - 99 mg/dL [facility] Interpretation and review of laboratory results Abnormal [facility] Osmolality Calc [Osmolality] 292 [facility] Potassium [Moles/Vol] 4.3 mmol/L 3.5 - 5.0 mmol/L [facility] Protein [Mass/Vol] 6.0 g/dL Low 6.4 - 8.3 g/dL [facility] Sodium [Moles/Vol] 139 mmol/L 135 - 145 mmol/L [facility] Urea nitrogen [Mass/Vol] 16 mg/dL 7 - 25 mg/dL [facility] Urea nitrogen/Creatinine [Mass ratio] 26 mg/mg [facility] Albumin [Mass/Vol] 3.1 g/dL Low 3.5-5.0 [facility] Comment on above: Performed By: #### C A, IPB, MGO, CHM7, HFP #### [facility] (DEFAULT) [address] [place] [address] 15072 ALP [Catalytic activity/Vol] 200 U/L High 32-126 [facility] Comment on above: Performed By: #### C A, IPB, MGO, CHM7, HFP #### [facility] (DEFAULT) [address] [place] [address] 52012 ALT [Catalytic activity/Vol] 15 U/L Normal 9-48 [facility] Comment on above: Performed By: #### C A, IPB, MGO, CHM7, HFP #### [facility] (DEFAULT) [address] [place] [address] 95767 Anion gap [Moles/Vol] 10 mmol/L Normal 7-17 [facility] Comment on above: Performed By: #### C A, IPB, MGO, CHM7, HFP #### [facility] (DEFAULT) [address] [place] [address] 13331 AST [Catalytic activity/Vol] 31 U/L Normal 10-39 [facility] Comment on above: Performed By: #### C A, IPB, MGO, CHM7, HFP #### [facility] (DEFAULT) [address] [place] [address] 91579 Bilirubin [Mass/Vol] 1.4 mg/dL Normal <1.5 [facility] Comment on above: Performed By: #### C A, IPB, MGO, CHM7, HFP #### [facility] (DEFAULT) [address] [place] [address] 37158 Calcium [Mass/Vol] 7.8 mg/dL Low 8.6-10.5 [facility] Comment on above: Performed By: #### C A, IPB, MGO, CHM7, HFP #### [facility] (DEFAULT) [address] [place] [address] 26166 Chloride [Moles/Vol] 106 mmol/L Normal 98-108 [facility] Comment on above: Performed By: #### C A, IPB, MGO, CHM7, HFP #### [facility] (DEFAULT) [address] [place] [address] 51235 CO2 [Moles/Vol] 27 mmol/L Normal 21-31 [facility] Comment on above: Performed By: #### C A, IPB, MGO, CHM7, HFP #### [facility] (DEFAULT) [address] [place] [address] 80398 Creatinine [Mass/Vol] 0.62 mg/dL Normal 0.50-1.20 [facility] Comment on above: Performed By: #### C A, IPB, MGO, CHM7, HFP #### [facility] (DEFAULT) [address] [place] [address] 21165 eGFR, CKD-EPI, Female > Normal >=60 [facility] Comment on above: Result Comment: Repo rted eGFR is based on the CKD-EPI 2020 equation using creatinine, age, and sex. Performed By: #### C A, IPB, MGO, CHM7, HFP #### [facility] (DEFAULT) [address] [place] [address] 88313 Glucose [Mass/Vol] 90 mg/dL Normal 70-99 [facility] Comment on above: Performed By: #### C A, IPB, MGO, CHM7, HFP #### [facility] (DEFAULT) [address] [place] [address] 20462 Osmolality [Osmolality] 292 mosm/kg Normal 278-305 [facility] Comment on above: Performed By: #### C A, IPB, MGO, CHM7, HFP #### [facility] (DEFAULT) [address] [place] [address] 54320 Potassium [Moles/Vol] 4.3 mmol/L Normal 3.5-5.0 [facility] Comment on above: Performed By: #### C A, IPB, MGO, CHM7, HFP #### [facility] (DEFAULT) [address] [place] [address] 50137 Protein [Mass/Vol] 6.0 g/dL Low 6.4-8.3 [facility] Comment on above: Performed By: #### C A, IPB, MGO, CHM7, HFP #### [facility] (DEFAULT) [address] [place] [address] 95298 Sodium [Moles/Vol] 139 mmol/L Normal 135-145 [facility] Comment on above: Performed By: #### C A, IPB, MGO, CHM7, HFP #### [facility] (DEFAULT) [address] [place] [address] 66338 Urea nitrogen [Mass/Vol] 16 mg/dL Normal 7-25 [facility] Comment on above: Performed By: #### C A, IPB, MGO, CHM7, HFP #### [facility] (DEFAULT) [address] [place] [address] 51234 Urea nitrogen/Creatinine [Mass ratio] 26 mg/mg Normal [facility] Comment on above: Performed By: #### C A, IPB, MGO, CHM7, HFP #### [facility] (DEFAULT) [address] [place] [address] 60751 Chronic hepatitis differenti ation between hepatitis B and C virus panelOrdered By: Christiane Lorenz on 05-23-2023 HBV core IgG+IgM Ql (S) Negative Negative [facility] HBV surface Ab IA Ql (S) Negative Negative [facility] HBV surface Ag Ql (S) Negative Negative [facility] HCV Ab Ql (S) Negative Negative [facility] Interpretation and review of laboratory results Normal [facility] HEPATITIS BATTERY, CHRONICon 05-23-2023 Hep B Core Ab,Total (IgG+IgM) Negative Normal Negative [facility] Comment on above: Performed By: #### M LUDMILA SANCHEZM7, HFP #### [facility] (DEFAULT) [address] [address] Hep B Surface Ab Negative Normal Negative [facility] Comment on above: Performed By: #### M LAURA CHM7, HFP #### [facility] (DEFAULT) [address] [address] Hepatitis B Surface Ag Negative Normal Negative [facility] Comment on above: Performed By: #### Manisha SANCHEZ CHM7, HFP #### [facility] (DEFAULT) [address] [address] Hepatitis C Antibody Negative Normal Negative [facility] Comment on above: Performed By: #### Manisha SANCHEZ CHM7, HFP #### [facility] (DEFAULT) [address] [address] M TUBERCULOSIS BY Isabela CHEUNG 05-23-2023 M. TB Mitogen-Nil 9.86 IU/mL Normal [facility] Comment on above: Order Comment: The M . Tuberculosis antigen levels cannot be correlated to stage or degree of infection, response to therapy or likelihood for progression to active disease. Results from QuantiFERON TB Gold Plus must be used in conjunction with individual epidemiological history, current medical status, and results of other diagnostic evaluation. Performed By: #### M LUDMILA SANCHEZM7, HFP #### [facility] (DEFAULT) [address] [address] M. TB Nil 0.14 IU/mL Normal [facility] Comment on above: Order Comment: The M . Tuberculosis antigen levels cannot be correlated to stage or degree of infection, response to therapy or likelihood for progression to active disease. Results from QuantiFERON TB Gold Plus must be used in conjunction with individual epidemiological history, current medical status, and results of other diagnostic evaluation. Performed By: #### M LAURA CHM7, HFP #### [facility] (DEFAULT) [address] [address] M. TB TB1-Nil 3.23 IU/mL Normal [facility] Comment on above: Order Comment: The M . Tuberculosis antigen levels cannot be correlated to stage or degree of infection, response to therapy or likelihood for progression to active disease. Results from QuantiFERON TB Gold Plus must be used in conjunction with individual epidemiological history, current medical status, and results of other diagnostic evaluation. Performed By: #### MAHENDRA NDIAYE, HFP #### [facility] (DEFAULT) [address] [place] [address] M. TB TB2-Nil 2.69 IU/mL Normal [facility] Comment on above: Order Comment: The M . Tuberculosis antigen levels cannot be correlated to stage or degree of infection, response to therapy or likelihood for progression to active disease. Results from QuantiFERON TB Gold Plus must be used in conjunction with individual epidemiological history, current medical status, and results of other diagnostic evaluation. Performed By: #### MAHENDRA NDIAYE, HFP #### [facility] (DEFAULT) [address] [place] [address] M. Tuberculosis by Quantiferon in tube Positive Abnormal Negative [facility] Comment on above: Order Comment: The M . Tuberculosis antigen levels cannot be correlated to stage or degree of infection, response to therapy or likelihood for progression to active disease. Results from QuantiFERON TB Gold Plus must be used in conjunction with individual epidemiological history, current medical status, and results of other diagnostic evaluation. Performed By: #### MAHENDRA NDIAYE, HFP #### [facility] (DEFAULT) [address] [place] [address] PROTIME-INRon 05-23-2023 INR Coag (Bld) [Relative time] 1.5 {INR} High 0.9 - 1.1 [facility] Interpretation and review of laboratory results Abnormal [facility] PT Coag (PPP) [Time] 18.4 s High [facility] INR Coag (PPP) [Relative time] 1.5 {INR} High 0.9-1.1 [facility] Comment on above: Performed By: #### C CHETAN Gu, MGO, CHM7, HFP #### [facility] (DEFAULT) [address] [place] [address] PT Coag (PPP) [Time] 18.4 s High 11.9-14.2 [facility] Comment on above: Performed By: #### C A, IPB, MGO, CHM7, HFP #### [facility] (DEFAULT) [address] [place] [address] Cardiac echo study Procedure Ordered By: Avtar Pastrana on 02-26-2023 Body surface area Derived from formula 1.88 m2 [facility] Work Phone: [facility] Work Phone: Cardiac echo study Procedure on 02-26-2023 Poor image quality. No apical or subcostal images obtained. The LV segments seen contract normally. Multiple segments not seen, thus an EF cannot be determined. Apparent normal RV function. No significant mitral or aortic valve disease on limited 2D images. No saline contrast study performed due to poor image quality. Left Ventricle Chamber size is normal. Normal wall thickness. Normal global systolic function. Ejection fraction was unable to be assessed. Unable to assess diastolic function. Right Ventricle Chamber size is normal. Systolic function is normal. Left Atrium Unable to assess left atrium. Right Atrium Unable to assess right atrium. IVC/SVC Inferior vena cava not well visualized. Mitral Valve Normal appearing leaflets. Leaflet mobility is normal. Tricuspid Valve Tricuspid valve not well visualized. Trace regurgitation. Aortic Valve Trileaflet valve. Non-specific thickening. Pulmonic Valve Pulmonic valve not well visualized. Pericardium No pericardial effusion. Pulmonary Artery Pulmonary artery not well visualized. Aorta Aorta not assessed. Study Details A complete echocardiography study was performed. Overall study quality was poor. Study limitations include poor parasternal window, poor apical window and technically difficult study. Imaging system used: [employer]. 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 Wall Scoring Score Index: 1.00 The following segments are normal: basal anteroseptal, basal inferolateral, mid anterior, mid anteroseptal, mid inferoseptal, mid inferior, mid inferolateral and mid anterolateral. Other segments could not be evaluated. [facility] Radiology Study observation (narrative) [facility] Vital Signs Date Time Vital Sign Value Performing Clinician Facility 08-11-2024 10:20-0400 Body height 154.9 cm Pacc 2 Work Phone: [facility] 08-11-2024 10:20-0400 Body mass index (BMI) [Ratio] 32.31 kg/m2 Pacc 2 Work Phone: [facility] 08-11-2024 10:20-0400 Body temperature 98.1 [degF] Pacc 2 Work Phone: [facility] 08-11-2024 10:20-0400 Body weight 77.56 kg Pacc 2 Work Phone: [facility] Comment on above: per patient 08-11-2024 10:20-0400 Diastolic blood pressure 53 mm[Hg] Pacc 2 Work Phone: [facility] Comment on above: Daughter states this is normal BP 08-11-2024 10:20-0400 Heart rate 82 /min Pacc 2 Work Phone: [facility] 08-11-2024 10:20-0400 SaO2% (BldA) [Mass fraction] 100 % Pacc 2 Work Phone: [facility] 08-11-2024 10:20-0400 Systolic blood pressure 99 mm[Hg] Pacc 2 Work Phone: [facility] Comment on above: Daughter states this is normal BP 08-05-2024 08:50-0400 Body mass index (BMI) [Ratio] 32.49 kg/m2 Imaging 1 Work Phone: [facility] 08-05-2024 08:50-0400 Body weight 78 kg Imaging 1 Work Phone: [facility] 08-05-2024 08:50-0400 Diastolic blood pressure 52 mm[Hg] Imaging 1 Work Phone: [facility] 08-05-2024 08:50-0400 Heart rate 100 /min Imaging 1 Work Phone: [facility] 08-05-2024 08:50-0400 SaO2% (BldA) [Mass fraction] 97 % Imaging 1 Work Phone: [facility] 08-05-2024 08:50-0400 Systolic blood pressure 95 mm[Hg] Imaging 1 Work Phone: [facility] 06-26-2024 10:26-0400 Body height 154.9 cm Alvino Robbins MD Work Phone: [facility] 06-26-2024 10:26-0400 Body mass index (BMI) [Ratio] 30.83 kg/m2 Alvino Robbins MD Work Phone: [facility] 06-26-2024 10:26-0400 Body temperature 98.01 [degF] Alvino Robbins MD Work Phone: [facility] 06-26-2024 10:26-0400 Body weight 74 kg Alvino Robbins MD Work Phone: [facility] 06-26-2024 10:26-0400 Diastolic blood pressure 61 mm[Hg] Alvino Robbins MD Work Phone: [facility] 06-26-2024 10:26-0400 Heart rate 88 /min Alvino Robbins MD Work Phone: [facility] 06-26-2024 10:26-0400 SaO2% (BldA) [Mass fraction] 100 % Alvino Robbins MD Work Phone: [facility] 06-26-2024 10:26-0400 Systolic blood pressure 103 mm[Hg] Alvino Robbins MD Work Phone: [facility] 04-14-2024 08:54-0400 Body height 154.9 cm Annabel Goetz APRN-SENIOR REPORT DEVELOPER Work Phone: [facility] 04-14-2024 08:54-0400 Body mass index (BMI) [Ratio] 30.06 kg/m2 Annabel Goetz TALKBACK HOST-SENIOR REPORT DEVELOPER Work Phone: [facility] 04-14-2024 08:54-0400 Body weight 72.17 kg Annabel Goetz TALKBACK HOST-SENIOR REPORT DEVELOPER Work Phone: [facility] 04-14-2024 08:54-0400 Diastolic blood pressure 56 mm[Hg] Annabel Goetz TALKBACK HOST-SENIOR REPORT DEVELOPER Work Phone: [facility] 04-14-2024 08:54-0400 Heart rate 87 /min Annabel Goetz TALKBACK HOST-SENIOR REPORT DEVELOPER Work Phone: [facility] 04-14-2024 08:54-0400 Respiratory rate 18 /min Annabel Goetz TALKBACK HOST-SENIOR REPORT DEVELOPER Work Phone: [facility] 04-14-2024 08:54-0400 SaO2% (BldA) [Mass fraction] 98 % Annabel Goetz TALKBACK HOST-SENIOR REPORT DEVELOPER Work Phone: [facility] 04-14-2024 08:54-0400 Systolic blood pressure 94 mm[Hg] Annabel Goetz TALKBACK HOST-SENIOR REPORT DEVELOPER Work Phone: [facility] 02-04-2024 17:00-0400 Diastolic blood pressure 52 mm[Hg] Matteo Martinez MD Work Phone: [facility] 02-04-2024 17:00-0400 Systolic blood pressure 99 mm[Hg] Matteo Martinez MD Work Phone: [facility] 02-04-2024 16:45-0400 Heart rate 96 /min Matteo Martinez MD Work Phone: [facility] 02-04-2024 16:45-0400 Respiratory rate 24 /min Matteo Martinez MD Work Phone: [facility] 02-04-2024 16:45-0400 SaO2% (BldA) [Mass fraction] 99 % Matteo Martinez MD Work Phone: [facility] 02-04-2024 16:41-0400 Body temperature 98.01 [degF] Matteo Martinez MD Work Phone: [facility] 02-04-2024 15:39-0400 Body height 154.9 cm Matteo Martinez MD Work Phone: [facility] 01-02-2024 10:17-0500 Body height 154.9 cm Randal Vital MD Work Phone: [facility] 01-02-2024 10:17-0500 Body mass index (BMI) [Ratio] 33.37 kg/m2 Randal Vital MD Work Phone: [facility] 01-02-2024 10:17-0500 Body weight 80.11 kg Randal Vital MD Work Phone: [facility] 01-02-2024 10:17-0500 Diastolic blood pressure 52 mm[Hg] Randal Vital MD Work Phone: [facility] 01-02-2024 10:17-0500 Heart rate 99 /min Randal Vital MD Work Phone: [facility] 01-02-2024 10:17-0500 Respiratory rate 14 /min Randal Vital MD Work Phone: [facility] 01-02-2024 10:17-0500 SaO2% (BldA) [Mass fraction] 97 % Randal Vital MD Work Phone: [facility] 01-02-2024 10:17-0500 Systolic blood pressure 94 mm[Hg] Randal Vital MD Work Phone: [facility] 10-16-2023 10:59-0500 Body mass index (BMI) [Ratio] 31.91 kg/m2 Annabel WOODARD Work Phone: [facility] 10-16-2023 10:59-0500 Body weight 76.61 kg Annabel Goetz TALKBACK HOST-SENIOR REPORT DEVELOPER Work Phone: [facility] 10-16-2023 10:59-0500 Diastolic blood pressure 58 mm[Hg] Annabel Goetz TALKBACK HOST-SENIOR REPORT DEVELOPER Work Phone: [facility] 10-16-2023 10:59-0500 Heart rate 103 /min Annabel Goetz TALKBACK HOST-SENIOR REPORT DEVELOPER Work Phone: [facility] 10-16-2023 10:59-0500 SaO2% (BldA) [Mass fraction] 98 % Annabel Goetz TALKBACK HOST-SENIOR REPORT DEVELOPER Work Phone: [facility] 10-16-2023 10:59-0500 Systolic blood pressure 98 mm[Hg] Annabel Goetz TALKBACK HOST-SENIOR REPORT DEVELOPER Work Phone: [facility] 08-30-2023 13:44-0400 Body temperature 97.39 [degF] Seth Hines MD, MPH Work Phone: [facility] 08-30-2023 13:44-0400 Diastolic blood pressure 52 mm[Hg] Seth Hines MD, MPH Work Phone: [facility] 08-30-2023 13:44-0400 Heart rate 65 /min Seth Hines MD, MPH Work Phone: [facility] 08-30-2023 13:44-0400 Respiratory rate 16 /min Seth Hines MD, MPH Work Phone: [facility] 08-30-2023 13:44-0400 SaO2% (BldA) [Mass fraction] 97 % Seth Hines MD, MPH Work Phone: [facility] 08-30-2023 13:44-0400 Systolic blood pressure 95 mm[Hg] Seth Hines MD, MPH Work Phone: [facility] 08-28-2023 11:49-0400 Body height 154.9 cm Seth Hines MD, MPH Work Phone: [facility] 08-28-2023 11:49-0400 Body mass index (BMI) [Ratio] 32.9 kg/m2 Seth Hines MD, MPH Work Phone: [facility] 08-28-2023 11:49-0400 Body weight 78.97 kg Seth Hines MD, MPH Work Phone: [facility] 08-27-2023 13:10-0400 Body height 160 cm Haile Pollock TALKBACK HOST-SENIOR REPORT DEVELOPER Work Phone: [facility] 08-27-2023 13:10-0400 Body mass index (BMI) [Ratio] 30.47 kg/m2 Haile Pollock TALKBACK HOST-SENIOR REPORT DEVELOPER Work Phone: [facility] 08-27-2023 13:10-0400 Body weight 78 kg Haile Pollock TALKBACK HOST-SENIOR REPORT DEVELOPER Work Phone: [facility] 08-27-2023 13:10-0400 Diastolic blood pressure 62 mm[Hg] Haile Pollock TALKBACK HOST-SENIOR REPORT DEVELOPER Work Phone: [facility] 08-27-2023 13:10-0400 Heart rate 80 /min Haile Pollock TALKBACK HOST-SENIOR REPORT DEVELOPER Work Phone: [facility] 08-27-2023 13:10-0400 Systolic blood pressure 94 mm[Hg] Haile Pollock TALKBACK HOST-SENIOR REPORT DEVELOPER Work Phone: [facility] 08-27-2023 08:36-0400 Body height 160 cm Annabel Goezt TALKBACK HOST-SENIOR REPORT DEVELOPER Work Phone: [facility] 08-27-2023 08:36-0400 Body mass index (BMI) [Ratio] 30.47 kg/m2 Annabel Goetz TALKBACK HOST-SENIOR REPORT DEVELOPER Work Phone: [facility] 08-27-2023 08:36-0400 Body weight 78.02 kg Annabel Goetz TALKBACK HOST-SENIOR REPORT DEVELOPER Work Phone: [facility] 08-27-2023 08:36-0400 Diastolic blood pressure 62 mm[Hg] Annabel Goetz TALKBACK HOST-SENIOR REPORT DEVELOPER Work Phone: [facility] 08-27-2023 08:36-0400 Heart rate 80 /min Annabel Goetz TALKBACK HOST-SENIOR REPORT DEVELOPER Work Phone: [facility] 08-27-2023 08:36-0400 SaO2% (BldA) [Mass fraction] 95 % Annabel Goetz TALKBACK HOST-SENIOR REPORT DEVELOPER Work Phone: [facility] 08-27-2023 08:36-0400 Systolic blood pressure 94 mm[Hg] Annabel Goetz TALKBACK HOST-SENIOR REPORT DEVELOPER Work Phone: [facility] 08-10-2023 08:43-0400 Body temperature 97.81 [degF] [facility] 08-10-2023 08:43-0400 Diastolic blood pressure 57 mm[Hg] [facility] 08-10-2023 08:43-0400 Heart rate 84 /min [facility] 08-10-2023 08:43-0400 SaO2% (BldA) [Mass fraction] 97 % [facility] 08-10-2023 08:43-0400 Systolic blood pressure 107 mm[Hg] [facility] Jak[facility] 07-05-2023 17:18-0400 Body height 160 cm Randal Vital MD Work Phone: 2(965)631-766370 [place] [address] 07-05-2023 17:18-0400 Body mass index (BMI) [Ratio] 28.34 kg/m2 Randal Vital MD Work Phone: 2(205)258-268386 [place] [address] 07-05-2023 17:18-0400 Body weight 72.58 kg Randal Vital MD Work Phone: 3(494)254-589486 [place] [address] 07-05-2023 17:18-0400 Diastolic blood pressure 57 mm[Hg] Randal Vitla MD Work Phone: 6(080)640-862086 [place] [address] 07-05-2023 17:18-0400 Heart rate 74 /min Randal Vital MD Work Phone: 7(537)774-199386 [place] [address] 07-05-2023 17:18-0400 Systolic blood pressure 96 mm[Hg] Randal Vital MD Work Phone: 3(485)736-666186 [place] [address] 05-23-2023 09:47-0400 Body height 159.8 cm Randal Vital MD Work Phone: 5(498)465-171686 [place] [address] 05-23-2023 09:47-0400 Body mass index (BMI) [Ratio] 31.22 kg/m2 Randal Vital MD Work Phone: 1(180)310-727086 [place] [address] 05-23-2023 09:47-0400 Body weight 79.7 kg Randal Vital MD Work Phone: 4(014)955-307186 [place] [address] 05-23-2023 09:47-0400 Diastolic blood pressure 62 mm[Hg] Randal Vital MD Work Phone: 8(989)251-313086 [place] [address] 05-23-2023 09:47-0400 Heart rate 78 /min Randal Vital MD Work Phone: 5(664)965-831386 [place] [address] 05-23-2023 09:47-0400 Respiratory rate 16 /min Randal Vital MD Work Phone: [facility] 05-23-2023 09:47-0400 SaO2% (BldA) [Mass fraction] 99 % Randal Vital MD Work Phone: 1(106)033-297986 [place] [address] 05-23-2023 09:47-0400 Systolic blood pressure 104 mm[Hg] Randal Vital MD Work Phone: 9(159)289-772186 [place] [address] 02-26-2023 13:27-0400 Body height 160 cm Randal Vital MD Work Phone: 9(238)424-673286 [place] [address] 02-26-2023 13:27-0400 Body mass index (BMI) [Ratio] 33.16 kg/m2 Randal Vital MD Work Phone: 4(280)269-518986 [place] [address] 02-26-2023 13:27-0400 Body weight 84.9 kg Randal Vital MD Work Phone: 1(543)644-827986 [place] [address] 02-26-2023 13:27-0400 Diastolic blood pressure 78 mm[Hg] Randal Vital MD Work Phone: 1(291)812-402986 [place] [address] 02-26-2023 13:27-0400 Systolic blood pressure 112 mm[Hg] Randal Vital MD Work Phone: 6(960)981-723786 [place] [address] 11-07-2022 16:13-0500 Body height 157.5 cm Randal Vital MD Work Phone: 5(217)199-308286 [place] [address] 11-07-2022 16:13-0500 Body mass index (BMI) [Ratio] 34.2 kg/m2 Randal Vital MD Work Phone: 7(112)205-936486 [place] [address] 11-07-2022 16:13-0500 Body weight 84.82 kg Randal Vital MD Work Phone: 9(993)722-936886 [place] [address] 11-07-2022 16:13-0500 Diastolic blood pressure 70 mm[Hg] Randal Vital MD Work Phone: [facility] 11-07-2022 16:13-0500 Heart rate 88 /min Randal Vital MD Work Phone: [facility] 11-07-2022 16:13-0500 Respiratory rate 18 /min Randal Vital MD Work Phone: [facility] 11-07-2022 16:13-0500 SaO2% (BldA) [Mass fraction] 98 % Randal Vital MD Work Phone: [facility] 11-07-2022 16:13-0500 Systolic blood pressure 102 mm[Hg] Randal Vital MD Work Phone: [facility] Encounters Encounter Date Encounter Type Care Provider Facility Start: 08-12-2024 End: 08-12-2024 ambulatory [facility] Facility:[facility] Start: 08-12-2024 End: 08-12-2024 Subsequent hospital visit by physician Ct 2 Main Qb (I-Stat) Radiology Comment on above: Cirrhosis of liver w ith ascites, unspecified hepatic cirrhosis type (HCC) (HCC) [K74.60, R18.8] Start: 08-11-2024 End: 08-11-2024 ambulatory [facility] Facility:[facility] Start: 08-11-2024 Encounter for other preprocedural examination AWA REILLY [facility] Start: 08-11-2024 End: 08-11-2024 Admission to establishment Pacc Main 2 Work Phone: Pre Anesthesia Start: 08-11-2024 End: 08-11-2024 Anesthesia consultation Pacc Main 2 Work Phone: Pre Anesthesia Comment on above: Pre-op evaluation (P rimary Dx); History of TB (tuberculosis); History of esophageal varices; Hypotension, unspecified hypotension type; History of ascites Start: 08-11-2024 End: 08-11-2024 Preprocedural examination done Pacc Main 2 Work Phone: [facility] Work Phone: Start: 08-11-2024 ambulatory AWA REILLY Facility :[facility] Start: 08-05-2024 End: 08-06-2024 Telephone encounter Awa Reilly MD Work Phone: Radiology Comment on above: Appointment Start: 08-05-2024 End: 08-05-2024 ambulatory DARLENE GARIBAY Facility:[facility] Start: 08-05-2024 End: 08-05-2024 Patient encounter procedure Imaging Consult Room 1 Work Phone: Radiology Comment on above: Consult (TIPS consul t) Start: 07-03-2024 End: 07-03-2024 Telephone encounter Xiao Neff MD Work Phone: Gastroenterology Comment on above: Patient Update (Need s TIPS evaluation) Start: 07-02-2024 End: 07-03-2024 Telephone encounter Alvino Robbins MD Work Phone: Gastroenterology Start: 06-26-2024 End: 06-26-2024 ambulatory ALVINO ROBBINS Facility:[facility] Start: 06-26-2024 End: 06-26-2024 Patient encounter procedure Alvino Robbins MD Work Phone: Gastroenterology Comment on above: Liver cirrhosis seco ndary to HARRISON (HCC) (Primary Dx); Refractory ascites; Esophageal varices without bleeding, unspecified esophageal varices type (HCC); Class 1 drug-induced obesity with serious comorbidity and body mass index (BMI) of 30.0 to 30.9 in adult; Hepatic encephalopathy (HCC) Start: 05-14-2024 Telephone encounter Afia verde LPN Work Phone: General Surgery Comment on above: Appointment Start: 04-14-2024 End: 04-14-2024 Office outpatient visit 25 minutes Annabel Goetz APRN-SENIOR REPORT DEVELOPER Work Phone: [facility] [place] Comment on above: Liver cirrhosis seco ndary to HARRISON (Primary Dx); Generalized abdominal pain Start: 04-14-2024 ambulatory ANNABEL DENTON Facility :[facility] Start: 02-04-2024 End: 02-04-2024 Subsequent hospital visit by physician Matteo Martinez MD Work Phone: [facility] Start: 02-04-2024 ambulatory KNE Rosy ALVAREZU Fac ility:[facility] Start: 01-02-2024 [facility] Facility :[facility] Start: 01-02-2024 End: 01-02-2024 Office outpatient visit 40 minutes Randal Vital MD Work Phone: [facility] [place] Comment on above: Decompensated hepati c cirrhosis (Primary Dx) Start: 01-02-2024 [facility] Facility :[facility] Start: 10-16-2023 [facility] Facility :[facility] Start: 10-16-2023 End: 10-16-2023 Office outpatient visit 25 minutes Annabel Goetz TALKBACK HOST-SENIOR REPORT DEVELOPER Work Phone: [facility] [place] Comment on above: Liver cirrhosis seco ndary to HARRISON (Primary Dx) Start: 10-16-2023 [facility] Facility :[facility] Start: 09-11-2023 ambulatory KEN Rosy ALVAREZU Fac ility:[facility] Start: 08-28-2023 End: 08-30-2023 Evaluation and management of inpatient Seth Hines MD, MPH Work Phone: [facility] Comment on above: Liver cirrhosis seco ndary to HARRISON Start: 08-27-2023 ambulatory DARLENE TORREZNATALIADIDI Facility: [facility] Start: 08-27-2023 End: 08-27-2023 Subsequent hospital visit by physician Haile Pollock TALKBACK HOST-SENIOR REPORT DEVELOPER Work Phone: [facility] [place] Start: 08-27-2023 [facility] Facility :[facility] Start: 08-27-2023 End: 08-27-2023 Office outpatient visit 25 minutes Annabel Goetz TALKBACK HOST-SENIOR REPORT DEVELOPER Work Phone: [facility] [place] Comment on above: Decompensated hepati c cirrhosis (Primary Dx) Start: 08-27-2023 ambulatory ANNABEL GOETZ Facility :[facility] Start: 08-10-2023 [facility] Start: 08-10-2023 End: 08-10-2023 Office outpatient visit 25 minutes Amber Clemons MD Work Phone: [facility] Comment on above: Other ascites (Prima ry Dx); Other cirrhosis of liver Start: 08-10-2023 ambulatory CHATHUR ZAHRAA Facilit y:[facility] Start: 07-05-2023 ambulatory CHATHUR ZAHRAA Facilit y:[facility] Start: 07-05-2023 End: 07-05-2023 Subsequent hospital visit by physician Randal Vital MD Work Phone: [facility] [place] Comment on above: Arrived Start: 05-23-2023 ambulatory [facility] Facility: [facility] Start: 05-23-2023 End: 05-23-2023 Office outpatient visit 40 minutes Randal Vital MD Work Phone: [facility] [place] Comment on above: Decompensated hepati c cirrhosis (Primary Dx) Start: 05-23-2023 ambulatory SELF SELF Facility:[facility] Start: 02-26-2023 End: 02-26-2023 Subsequent hospital visit by physician Randal Vital MD Work Phone: [facility] [place] Start: 11-07-2022 End: 11-07-2022 Office consultation new/estab patient 80 min Randal Vital MD Work Phone: [facility] [place] Comment on above: Decompensated hepati c cirrhosis (Primary Dx); Non-alcoholic fatty liver disease Procedures Date Procedure Procedure Detail Performing Clinician Start: 08-12-2024 Ct abdomen & pelvis w/contrast material Sherri Martinez APRN.CNP Work Phone: Start: 08-11-2024 Antibody screen AWA REILLY Comment on above: Order Comment: Speci men Type: BLOOD SPECIMEN Ordering Facility: [facility] Address: [address] [place] [address] Performed By: #### T [id number] #### [facility] CLIA [id number] [address] [place], [place] [address] [address] [place] Start: 02-04-2024 DIAGNOSTIC UPPER ENDOSCOPY Magdalena Abdalla MD Work Phone: Start: 08-30-2023 Assay of magnesium Will kenya Contreras MD Work Phone: Start: 08-30-2023 Hepatic function panel Tk Contreras MD Work Phone: Start: 08-29-2023 GENERAL PROCEDURE Edilia Trent DO Work Phone: Start: 08-29-2023 End: 08-29-2023 Creatinine blood Marilia NEAL Work Phone: Start: 08-29-2023 End: 08-29-2023 TRANSFUSE OR PLASMA Allan Turpin TALKBACK HOST-C RNA Start: 08-29-2023 Bilirubin direct Wally Contreras MD Work Phone: Start: 08-28-2023 ABORH TYPE RECONFIRMATION Daniel May MD Work Phone: Start: 08-28-2023 Antibody screen Seth heath MD, MPH Work Phone: Start: 08-28-2023 Antibody screen SELF SE LF Comment on above: Performed By: #### Manisha SANCHEZ CHM7, HFP #### [facility] (DEFAULT) [address] [address] Start: 08-28-2023 Blood typing serologic abo Tk Contreras MD Work Phone: Start: 08-28-2023 PREPARE TO TRANSFUSE PLASMA Marilia NEAL Work Phone: Start: 08-28-2023 Bilirubin direct Wally Contreras MD Work Phone: Start: 08-28-2023 CBC AND ELECTRONIC DIFF Tk Contreras MD Work Phone: Start: 08-28-2023 Complete blood count with white cell differential, automated Tk Contreras MD Work Phone: Start: 08-27-2023 Echo tthrc r-t 2d w/wom-mode compl spec&colr d Haile Vazquezgini TALKBACK HOST-SENIOR REPORT DEVELOPER Work Phone: Start: 07-05-2023 Creatinine blood Lucia Vital MD Work Phone: Start: 05-23-2023 PNEUMOCOCCAL VACCINE 20-VALENT Randal Vital MD Work Phone: Start: 02-26-2023 Echo tthrc r-t 2d w/wom-mode compl spec&colr d Randal Vital MD Work Phone: Plan of Treatment Date Care Activity Detail Author Start: 08-11-2027 Diabetes Screening Diabetes Screening [facility] Start: 04-14-2027 Diabetes Screening Diabetes Screening [facility] Start: 04-14-2025 Potassium [Moles/volume] in Serum or Plasma POTASSIUM [facility] Start: 01-01-2025 Potassium [Moles/volume] in Serum or Plasma POTASSIUM [facility] Start: 11-03-2024 End: 02-03-2025 DIAGNOSTIC UPPER ENDOSCOPY DIAGNOSTIC UPPER ENDOSCOPY GI/Bronch Routine 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 Obesity (BMI 30.0-34.9) Expected: 11/03/2024, Expires: 02/03/2025 [facility] Comment on above: Expected: 11/03/2024, Expires: Start: 10-16-2024 Potassium [Moles/volume] in Serum or Plasma POTASSIUM [facility] Start: 09-09-2024 End: 09-09-2024 Admission to same day surgery center 09/09/2024 7:30 AM EST - 09/09/2024 12:00 PM EST Surgery Angio [address] [place] [address] Awa Reilly MD [address] [place] [address] INSERT TIPS SHUNT STENT Angio Comment on above: INSERT TIPS SHUNT STENT Start: 09-09-2024 End: 09-09-2024 Insj transvns intrahepatc portosysic shunt INSERT TIPS SHUNT STENT Cirrhosis of liver with ascites, unspecified hepatic cirrhosis type (HCC) (HCC) 09/09/2024 7:30 AM EST ANGIO HB6 Start: 09-09-2024 Subsequent hospital visit by physician 09/09/2024 7:30 AM EST Hospital Encounter Angio [address] [place] [address] Awa Reilly MD [address] [place] [address] Cirrhosis of liver with ascites, unspecified hepatic cirrhosis type (HCC) (HCC) [K74.60, R18.8] Angio Comment on above: Cirrhosis of liver with ascites, unspeci fied hepatic cirrhosis type (HCC) (HCC) [K74.60, R18.8] Start: 09-09-2024 End: 09-09-2024 Patient encounter procedure 09/09/2024 7:00 AM EST Office Visit [employer] [facility] [address] [place] [address] Language, Senior Product Analyst [facility] [address] [place] [address] PHARMACEUTICAL ASSISTANT [employer] Comment on above: PHARMACEUTICAL ASSISTANT Start: 08-27-2024 Potassium [Moles/volume] in Serum or Plasma POTASSIUM [facility] Start: 08-15-2024 End: 08-15-2024 Patient encounter procedure 08/15/2024 8:30 AM EDT Office [place] [id number] surg reg [employer] Screening Comment on above: surg reg Start: 08-12-2024 End: 08-12-2024 ambulatory 08/12/2024 2:15 PM EDT Results Only [facility] [place] [facility] [address] [place], [place] [id number] [facility] [place] [facility] Comment on above: LABS Start: 08-12-2024 End: 08-12-2024 Patient encounter procedure Radiology Comment on above: CT ABD/PEL W IVCON SPAINISH A P MANAGER Start: 08-12-2024 End: 08-12-2024 Patient encounter procedure Senior [employer] Analyst Services Comment on above: SPAINISH A P MANAGER CT ABD/PEL W IVCON Start: 08-11-2024 End: 11-10-[address] [facility] Work Phone: Comment on above: Expected: 08/11/2024, Expires: Start: 08-11-2024 End: 08-11-2024 Anesthesia consultation 08/11/2024 10:40 AM EDT PAT Pre Anesthesia [address] [place] [id number] 2, Pacc Main [address] [id number] PACC Pre Anesthesia Comment on above: PACC Start: 08-11-2024 End: 08-11-2024 Patient encounter procedure 08/11/2024 10:15 AM EDT Office Visit [employer] [address] [place] [address] Language, Senior Product Analyst [facility] [address] [id number] PHARMACEUTICAL ASSISTANT [employer]st Services Comment on above: PHARMACEUTICAL ASSISTANT Start: 08-10-2024 Potassium [Moles/volume] in Serum or Plasma POTASSIUM [facility] Start: 08-05-2024 End: 11-04-2024 CBC panel - Blood by Automated count COMPLETE BLOOD COUNT Lab Routine Cirrhosis of liver with ascites, unspecified hepatic cirrhosis type (HCC) (HCC) Expected: 08/05/2024, Expires: 11/04/2024 [facility] Comment on above: Expected: 08/05/2024, Expires: Start: 08-05-2024 End: 11-04-2024 Comprehensive metabolic 2000 panel - Serum or Plasma COMPREHENSIVE METABOLIC PANEL Lab Routine Cirrhosis of liver with ascites, unspecified hepatic cirrhosis type (HCC) (HCC) Expected: 08/05/2024, Expires: 11/04/2024 [facility] Comment on above: Expected: 08/05/2024, Expires: Start: 08-05-2024 End: 11-04-2024 CREATININE BLD CREATININE BLD Lab Routine Cirrhosis of liver with ascites, unspecified hepatic cirrhosis type (HCC) (HCC) Expected: 08/05/2024, Expires: 11/04/2024 [facility] Comment on above: Expected: 08/05/2024, Expires: Start: 08-05-2024 End: 11-04-2024 PT panel - Platelet poor plasma by Coagulation assay PROTHROMBIN TIME Lab Routine Cirrhosis of liver with ascites, unspecified hepatic cirrhosis type (HCC) (HCC) Expected: 08/05/2024, Expires: 11/04/2024 [facility] Comment on above: Expected: 08/05/2024, Expires: Start: 08-05-2024 End: 11-04-2024 TYPE AND SCREEN,30 DAY TYPE AND SCREEN,30 DAY Blood Bank Routine Cirrhosis of liver with ascites, unspecified hepatic cirrhosis type (HCC) (HCC) Expected: 08/05/2024, Expires: 11/04/2024 [facility] Comment on above: Expected: 08/05/2024, Expires: Start: 08-05-2024 End: 08-05-2024 Patient encounter procedure 08/05/2024 11:30 AM EDT Office Visit [facility] [place] [facility] [address] [place], [place] [phone] Randal Vital MD [address] [place] [address] [facility] [place] [facility] Start: 06-29-2024 Covid-19 Vaccine ( season) Covid-19 Vaccine () [facility] Start: 06-29-2024 Covid-19 Vaccine ( season) Covid-19 Vaccine ( season) [facility] Start: 06-29-2024 Influenza vaccination [facility] Start: 06-26-2024 End: 06-26-2024 Patient encounter procedure Senior [employer] Analyst Services Comment on above: 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-needing TIPS procedure Start: 05-23-2024 Potassium [Moles/volume] in Serum or Plasma POTASSIUM [facility] Start: 04-14-2024 End: 04-14-2025 AFP TUMOR MARKER [facility] Comment on above: Expected: 04/14/2024 (Approximate), Expi res: 04/14/2025 Start: 04-14-2024 End: 04-14-2025 CT Abdomen and Pelvis W contrast IV CT ABDOMEN/PELVIS WITH CONTRAST Imaging Routine 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 Generalized abdominal pain Expected: 04/14/2024, Expires: 04/14/2025 [facility] Comment on above: Expected: 04/14/2024, Expires: Start: 04-14-2024 End: 04-14-2024 Patient encounter procedure 04/14/2024 9:00 AM EDT Office Visit [facility] [address] [place] [address] Annabel Goetz APRN-SENIOR REPORT DEVELOPER [address] [place] [address] [place] [address] [facility] [place] [facility] Start: 02-27-2024 Potassium [Moles/volume] in Serum or Plasma POTASSIUM [facility] Start: 02-04-2024 End: 02-04-2024 Patient encounter procedure 02/04/2024 4:30 PM EDT Appointment [facility] [address] [facility] [address]nd [place] [phone] Matteo Martinez MD [address] [place] [facility] [address] [place] [address] [facility] Start: 01-02-2024 End: 01-01-2025 US Abdomen RUQ US ABDOMEN RUQ/LIVER/GB Imaging Routine Decompensated hepatic cirrhosis Expected: 01/02/2024 (Approximate), Expires: 01/01/2025 [facility] Comment on above: Expected: 01/02/2024 (Approximate), Expi res: 01/01/2025 Start: 01-02-2024 End: 01-02-2024 Patient encounter procedure 01/02/2024 10:30 AM EST Office Visit [facility] [address] [place] [address] Randal Vital MD [address] [place] [address] [facility] Start: 12-28-2023 End: 10-16-2024 US Abdomen RUQ US ABDOMEN RUQ/LIVER/GB Imaging Routine 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 Expected: 12/28/2023 (Approximate), Expires: 10/16/2024 [facility] Comment on above: Expected: 12/28/2023 (Approximate), Expi res: 10/16/2024 Start: 10-29-2023 Behavioral Health Screening Behavioral Health Screening [facility] Start: 10-16-2023 End: 10-16-2023 Patient encounter procedure 10/16/2023 11:30 AM EST Office Visit [facility] [address] [place] [address] Annabel Goetz APRN-FELICIA [address] [place] [phone] [facility] Start: 09-11-2023 End: 09-11-2023 Patient encounter procedure 09/11/2023 1:00 PM EST Appointment [facility] [address] [phone] Ken Garcia MD [address] [place] [address] [facility] Start: 08-29-2023 End: 08-29-2023 Admission to same day surgery center 08/29/2023 7:30 AM EDT - 08/29/2023 12:30 PM EDT Surgery [facility] [address] [place] [phone] Amber Clemons MD [address] [address] Insertion Shunt Transvenous Intrahepatic Portosystemic Percutaneous (Tips) TIPS Imaging [facility] Comment on above: Insertion Shunt Transvenous Intrahepatic Portosystemic Percutaneous (Tips) TIPS Start: 08-28-2023 Subsequent hospital visit by physician 08/28/2023 1:00 PM EDT Hospital Encounter Request [facility] [address] [place] [address] Seth Hines MD, MPH 0 [facility] 7th [place] [address] Other ascites Request [facility] Comment on above: Other ascites Start: 08-27-2023 End: 08-27-2023 Patient encounter procedure [facility] Start: 08-10-2023 End: 08-10-2024 Echocardiography ECHOCARDIOGRAM Echocardiography Routine Other ascites Expected: 08/10/2023, Expires: 08/10/2024 [facility] Comment on above: Expected: 08/10/2023, Expires: Start: 08-10-2023 End: 08-10-2023 Patient encounter procedure 08/10/2023 8:40 AM EDT Office Visit [facility] [address] [place] [phone] Amber Clemons MD [address] [place] [address] Interventional [facility]iology Clinic Start: 06-29-2023 COVID-19 VACCINE ( season) COVID-19 VACCINE ( season) [facility] Start: 06-29-2023 Influenza vaccination [facility] Start: 05-23-2023 End: 05-23-2024 INTERVENTIONAL UPPER ENDOSCOPY INTERVENTIONAL UPPER ENDOSCOPY GI/Bronch Routine Decompensated hepatic cirrhosis Expected: 05/23/2023, Expires: 05/23/2024 [facility] Comment on above: Expected: 05/23/2023, Expires: 4 Start: 05-23-2023 End: 05-23-2024 M TUBERCULOSIS BY QUANTIFERON, BLD [facility] Comment on above: Expected: 05/23/2023, Expires: Start: 05-23-2023 End: 05-23-2024 US Abdomen RUQ US ABDOMEN RUQ/LIVER/GB Imaging Routine Decompensated hepatic cirrhosis Expected: 05/23/2023 (Approximate), Expires: 05/23/2024 [facility] Comment on above: Expected: 05/23/2023 (Approximate), Expi res: 05/23/2024 Start: 05-23-2023 End: 05-23-2023 Patient encounter procedure 05/23/2023 Office [place] [address] [place] [address] [place] [address] [facility] Start: 02-13-2023 End: 02-13-2023 Patient encounter procedure 02/13/2023 Office [place] [address] [place] [address] [facility] Start: 11-07-2022 End: 11-07-2023 AFP TUMOR MARKER AFP TUMOR MARKER Lab Routine Decompensated hepatic cirrhosis Non-alcoholic fatty liver disease Expected: 11/07/2022 (Approximate), Expires: 11/07/2023 [facility] Comment on above: Expected: 11/07/2022 (Approximate), Expi res: 11/07/2023 Start: 11-07-2022 End: 11-07-2023 ALPHA 1 ANTITRYPSIN ALPHA 1 ANTITRYPSIN Lab Routine Decompensated hepatic cirrhosis Non-alcoholic fatty liver disease Expected: 11/07/2022, Expires: 11/07/2023 [facility] Comment on above: Expected: 11/07/2022, Expires: Start: 11-07-2022 End: 11-07-2023 [id number],WILDER TYPING [id number],GEN OTYPING Lab Routine Decompensated hepatic cirrhosis Non-alcoholic fatty liver disease Expected: 11/07/2022, Expires: 11/07/2023 [facility] Comment on above: Expected: 11/07/2022, Expires: Start: 11-07-2022 End: 11-07-2023 SASHA SCREEN IFA SASHA SCREEN IFA Lab Routine Decompensated hepatic cirrhosis Non-alcoholic fatty liver disease Expected: 11/07/2022 (Approximate), Expires: 11/07/2023 [facility] Comment on above: Expected: 11/07/2022 (Approximate), Expi res: 11/07/2023 Start: 11-07-2022 End: 11-07-2023 ANTI MITOCHONDRIAL ANTIBODY ANTI MITOCHONDRIAL ANTIBODY Lab Routine Decompensated hepatic cirrhosis Non-alcoholic fatty liver disease Expected: 11/07/2022 (Approximate), Expires: 11/07/2023 [facility] Comment on above: Expected: 11/07/2022 (Approximate), Expi res: 11/07/2023 Start: 11-07-2022 End: 11-07-2023 ANTI SMOOTH MUSCLE ANTIBODY ANTI SMOOTH MUSCLE ANTIBODY Lab Routine Decompensated hepatic cirrhosis Non-alcoholic fatty liver disease Expected: 11/07/2022 (Approximate), Expires: 11/07/2023 [facility] Comment on above: Expected: 11/07/2022 (Approximate), Expi res: 11/07/2023 Start: 11-07-2022 End: 11-07-2023 CERULOPLASMIN CERULOPLASMIN Lab Routine Decompensated hepatic cirrhosis Non-alcoholic fatty liver disease Expected: 11/07/2022 (Approximate), Expires: 11/07/2023 [facility] Comment on above: Expected: 11/07/2022 (Approximate), Expi res: 11/07/2023 Start: 11-07-2022 End: 11-07-2023 Complete blood count with white cell differential, automated CBC, EDIF, PLATELET Lab Routine Decompensated hepatic cirrhosis Non-alcoholic fatty liver disease Expected: 11/07/2022, Expires: 11/07/2023 [facility] Comment on above: Expected: 11/07/2022, Expires: Start: 11-07-2022 End: 11-07-2023 Comprehensive metabolic 2000 panel - Serum or Plasma COMPREHENSIVE METABOLIC PANEL Lab Routine Decompensated hepatic cirrhosis Non-alcoholic fatty liver disease Expected: 11/07/2022, Expires: 11/07/2023 [facility] Comment on above: Expected: 11/07/2022, Expires: Start: 11-07-2022 End: 11-07-2023 Ferritin [Mass/volume] in Serum or Plasma FERRITIN Lab Routine Decompensated hepatic cirrhosis Non-alcoholic fatty liver disease Expected: 11/07/2022 (Approximate), Expires: 11/07/2023 [facility] Comment on above: Expected: 11/07/2022 (Approximate), Expi res: 11/07/2023 Start: 11-07-2022 End: 11-07-2023 HEP A AB, TOTAL (IGG+IGM) HEP A AB, TOTAL (IGG+IGM) Lab Routine Decompensated hepatic cirrhosis Non-alcoholic fatty liver disease Expected: 11/07/2022, Expires: 11/07/2023 [facility] Comment on above: Expected: 11/07/2022, Expires: Start: 11-07-2022 End: 11-07-2023 HEPATITIS B CORE IGM AB HEPATITIS B CORE IGM AB Lab Routine Decompensated hepatic cirrhosis Non-alcoholic fatty liver disease Expected: 11/07/2022 (Approximate), Expires: 11/07/2023 [facility] Comment on above: Expected: 11/07/2022 (Approximate), Expi res: 11/07/2023 Start: 11-07-2022 End: 11-07-2023 HEPATITIS C ANTIBODY HEPATITIS C ANTIBODY Lab Routine Decompensated hepatic cirrhosis Non-alcoholic fatty liver disease Expected: 11/07/2022, Expires: 11/07/2023 [facility] Comment on above: Expected: 11/07/2022, Expires: Start: 11-07-2022 End: 11-07-2023 HIV 1+2 Ab+HIV1 p24 Ag [Presence] in Serum or Plasma by Immunoassay HIV 1 AND 2 ANTIBODIES Lab Routine Decompensated hepatic cirrhosis Non-alcoholic fatty liver disease Expected: 11/07/2022, Expires: 11/07/2023 [facility] Comment on above: Expected: 11/07/2022, Expires: Start: 11-07-2022 End: 11-07-2023 IMMUNOGLOBULINS IGG IGA IGM IMMUNOGLOBULINS IGG IGA IGM Lab Routine Decompensated hepatic cirrhosis Non-alcoholic fatty liver disease Expected: 11/07/2022, Expires: 11/07/2023 [facility] Comment on above: Expected: 11/07/2022, Expires: 4 Start: 11-07-2022 End: 11-07-2023 IRON/IRON BINDING/TRANSFERRIN IRON/IRON BINDING/TRANSFERRIN Lab Routine Decompensated hepatic cirrhosis Non-alcoholic fatty liver disease Expected: 11/07/2022, Expires: 11/07/2023 [facility] Comment on above: Expected: 11/07/2022, Expires: 4 Start: 11-07-2022 End: 11-07-2023 LIVER-KIDNEY MICROSOMAL AB LIVER-KIDNEY MICROSOMAL AB Lab Routine Decompensated hepatic cirrhosis Non-alcoholic fatty liver disease Expected: 11/07/2022, Expires: 11/07/2023 [facility] Comment on above: Expected: 11/07/2022, Expires: Start: 11-07-2022 End: 11-07-2023 PROTIME-INR PROTIME-INR Lab Routine Decompensated hepatic cirrhosis Non-alcoholic fatty liver disease Expected: 11/07/2022, Expires: 11/07/2023 [facility] Comment on above: Expected: 11/07/2022, Expires: 4 Start: 11-07-2022 End: 11-07-2023 T-TRANSGLUTAMINASE IGG/IGA, AB T-TRANSGLUTAMINASE IGG/IGA, AB Lab Routine Decompensated hepatic cirrhosis Non-alcoholic fatty liver disease Expected: 11/07/2022, Expires: 11/07/2023 [facility] Comment on above: Expected: 11/07/2022, Expires: Start: 06-29-2022 Influenza vaccination INFLUENZA VACCINE (#1) [facility] Start: 2022 Hepatitis B vaccination HEP B VACCINE (1 of 3 - Risk 3-dose series) [facility] Start: 2022 Hepatitis B Vaccine (1 of 3 - Risk 3-dose series) Hepatitis B Vaccine (1 of 3 - Risk 3-dose series) [facility] Start: 2022 RSV Vaccine (1 - 1-dose 60+ series) RSV Vaccine (1 - 1-dose 60+ series) [facility] Start: 2022 RSV Vaccine (1 - Risk 60-74 years 1-dose series) RSV Vaccine (1 - Risk 60-74 years 1-dose series) [facility] Start: 01-28-2012 Shingrix Vaccine (1 of 2) Shingrix Vaccine (1 of 2) [facility] Start: 01-28-2012 Zoster vaccine hzv live for subcutaneous use ZOSTER (SHINGLES) VACCINE (1 of 2) [facility] Start: 2007 Diabetes Screening Diabetes Screening [facility] Start: 2007 Lipid panel Lipid Screening [facility] Start: 2007 Screening for malignant neoplasm of colon [facility] Start: 2002 Lipid panel LIPID SCREENING [facility] Start: 2002 Screening for malignant neoplasm of breast [facility] Start: 1983 Screening for malignant neoplasm of cervix [facility] Start: 1981 Hepatitis A Vaccine (1 of 2 - Risk 2-dose series) Hepatitis A Vaccine (1 of 2 - Risk 2-dose series) [facility] Start: 1981 Third diphtheria, tetanus and acellular pertussis (DTaP) vaccination TDAP (ADULT) [facility] Start: 1981 Urine microalbumin profile DTaP,Tdap,Td Vaccine (1 - Tdap) [facility] Start: 01-28-1980 Anxiety Screening Anxiety Screening [facility] Start: 01-28-1980 Depression Screening Depression Screening [facility] Start: 01-28-1980 Hepatitis C screening Hepatitis C Screening [facility] Start: 01-28-1980 HIV screening HIV Screening [facility] Start: 1977 HIV screening HIV SCREENING DISCUSSION [facility] Start: 1962 COVID-19 VACCINE (#1) COVID-19 VACCINE (#1) [facility] Start: 1962 Hepatitis C screening HEPATITIS C VIRUS SCREENING [facility] Start: 1962 Potassium [Moles/volume] in Serum or Plasma POTASSIUM [facility] Start: 1962 Tetanus vaccination TETANUS [facility] End: 07-05-2023 CT Abdomen and Pelvis W contrast IV [facility] Work Phone: Comment on above: 1 Occurrences starting 07/05/2023 until 07/05/2023 End: 09-04-2025 CT Abdomen and Pelvis W contrast IV CT ABD/PEL W IVCON Radiology Routine Cirrhosis of liver with ascites, unspecified hepatic cirrhosis type (HCC) (HCC) 1 Occurrences starting 08/05/2024 until 09/04/2025 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 Work Phone: Comment on above: Ordered: 07/03/2024 End: 08-10-2023 Percutaneous abdominal drainage [facility] Comment on above: One Time for 1 Occurrences starting 07/29 until 08/10/2023 End: 08-10-2023 PERCUTANEOUS TRANSHEPATIC PORTAL VEIN-IP ONLY [facility] Work Phone: Comment on above: One Time for 1 Occurrences starting 07/29 until 08/10/2023 Immunizations Immunization Date Immunization Notes Care Provider Lorena rizzo 05-23-2023 Pneumococcal Conjuga te 20-Valent Vaccine Randal Vital MD Work Phone: [facility] Social History Date Type Detail Facility Start: 11-07-2022 End: 08-11-2024 Tobacco smoking status NHIS Never smoked tobacco [facility] Start: 11-07-2022 End: 08-11-2024 Tobacco use and exposure Smokeless tobacco non-user [facility] Start: 11-07-2022 End: 08-11-2024 Alcohol intake Lifetime non-drinker (finding) [facility] Start: 1960 Sex Assigned At Not on file [facility] Start: 10-28-2022 End: 11-07-2022 Exposure to SARS-CoV-2 (event) Unable to assess [facility] Start: 05-23-2023 End: 06-26-2024 History of Social function [facility] Start: 05-23-2023 End: 06-26-2024 Tobacco use panel [facility] Tobacco smoking status NHIS Tobacco smoking consumption unknown [facility] Work Phone: National Score (1-100), lower number is lower risk 58 [facility] Clinical Notes 11-07-2022 to 08-12-2024 Desirae Moon RN - 08/12/2024 1:30 PM EDTPanaMichelle sneed RT(R) - 08/12/2024 1:30 PM EDTPatient InstructionsDavis-Rosalee Ellis APRN.SENIOR REPORT DEVELOPER - 08/11/2024 10:40 AM EDTPatient InstructionsAttachments Note Date & Type Note Facility 08-12-2024 History of Presen t illness Narrative Radiology Service Progress Note DATE OF SERVICE: August 12, 2024 TIME: 11:56 AM PATIENT WEIGHT: 171 LBS PATIENT IDENTITY VERIFICATION COMPLETED USING TWO (2) STANDARD IDENTIFIERS: Name and Date of confirmed by patient verbally and Name and Date of confirmed by identification band. FALL SCREENING: Has the patient had 2 falls in the last year or 1 fall with injury or currently using an Ambulatory Assistive Device (Walker, Cane, Wheelchair, Crutches, etc.)? No PATIENT GENDER DATA: Female. status: : No status: NO. ALLERGIES: Reviewed and unchanged CONTRAST ALLERGY: No EXAM: CT -CONTRAST INDUCED NEPHROPATHY RISK FACTORS: Patient age > 60 years CREATININE: Creatinine Date Value Ref Range Status 08/11/2024 0.69 0.58 - 0.96 mg/dL Final Estimated Glomerular Filtration Rate Date Value Ref Range Status 08/11/2024 98 >=60 mL/min/1.73m Final Comment: Estimated Glomerular Filtration Rate (eGFR) is calculated using the 2020 CKD-EPI creatinine equation. This equation utilizes serum creatinine, sex, and age as parameters. The creatinine assay has traceable calibration to isotope dilution-mass spectrometry. Refer to KDIGO guidelines for clinical interpretation. In patients with unstable renal function, e.g. those with acute kidney injury, the eGFR may not accurately reflect actual GFR. P.O.C.T. RESULTS: N/A August 12, 2024 TREATMENT: No Hydration needed. IV SITE: Ambulatory: A peripheral IV was started in the Right antecubital site with a Angio cath: 22 gauge. IV SITE APPEARANCE: Clean,Dry and Intact SIGNATURE: Desirae Moon RN PATIENT NAME: Madhavi Avalos DATE: August 12, 2024 TIME: 11:56 AM Radiology Service Progress Note PATIENT NAME: Madhavi Avalos DATE OF SERVICE: August 12, 2024 TIME: 12:54 PM PATIENT IDENTITY VERIFICATION COMPLETED USING TWO (2) IDENTIFIERS: Name and Date of confirmed by patient verbally and Name and Date of confirmed by identification band. FALL SCREENING: Has the patient had 2 falls in the last year or 1 fall with injury or currently using an Ambulatory Assistive Device (Walker, Cane, Wheelchair, Crutches, etc.)? No PATIENT GENDER DATA: Female. status: Unknown status: N/A PATIENT RELEVANT IMPLANT DATA REVIEWED: Yes PATIENT PRESENTS WITH AN IMPLANTABLE OR ATTACHED BLACK LEATHER TRIMMER: No RADIOLOGY DEPARTMENT: CT; Exam(s) Completed: Abdomen/Pelvis PERIPHERAL IV DATA: Site assessment: Clean,Dry and Intact, Site disposition Discontinued SIGNED BY: RT Douglas(R) August 12, 2024 12:54 PM documented in this encounter [facility] 08-12-2024 Note HNO ID: [id number] Author: MICHELLE JACOB RT(R) Service: Radiology Author Type: Technologist Type: Progress Notes Filed: 08/12/2024 12:54 Note Text: Radiology Service Progress Note PATIENT NAME: Madhavi Avalos DATE OF SERVICE: August 12, 2024 TIME: 12:54 PM PATIENT IDENTITY VERIFICATION COMPLETED USING TWO (2) IDENTIFIERS: Name and Date of confirmed by patient verbally and Name and Date of confirmed by identification band. FALL SCREENING: Has the patient had 2 falls in the last year or 1 fall with injury or currently using an Ambulatory Assistive Device (Walker, Cane, Wheelchair, Crutches, etc.)? No PATIENT GENDER DATA: Female. status: Unknown status: N/A PATIENT RELEVANT IMPLANT DATA REVIEWED: Yes PATIENT PRESENTS WITH AN IMPLANTABLE OR ATTACHED BLACK LEATHER TRIMMER: No RADIOLOGY DEPARTMENT: CT; Exam(s) Completed: Abdomen/Pelvis PERIPHERAL IV DATA: Site assessment: Clean,Dry and Intact, Site disposition Discontinued SIGNED BY: RT Douglas(R) August 12, 2024 12:54 PM [facility] 08-12-2024 Note HNO ID: [id number] Author: DESIRAE MOON RN Service: ? Author Type: Registered Nurse Type: Progress Notes Filed: 08/12/2024 12:00 Note Text: Radiology Service Progress Note DATE OF SERVICE: August 12, 2024 TIME: 11:56 AM PATIENT WEIGHT: 171 LBS PATIENT IDENTITY VERIFICATION COMPLETED USING TWO (2) STANDARD IDENTIFIERS: Name and Date of confirmed by patient verbally and Name and Date of confirmed by identification band. FALL SCREENING: Has the patient had 2 falls in the last year or 1 fall with injury or currently using an Ambulatory Assistive Device (Walker, Cane, Wheelchair, Crutches, etc.)? No PATIENT GENDER DATA: Female. status: : No status: NO. ALLERGIES: Reviewed and unchanged CONTRAST ALLERGY: No EXAM: CT -CONTRAST INDUCED NEPHROPATHY RISK FACTORS: Patient age > 60 years CREATININE: Creatinine Date Value Ref Range Status 08/11/2024 0.69 0.58 - 0.96 mg/dL Final Estimated Glomerular Filtration Rate Date Value Ref Range Status 08/11/2024 98 >=60 mL/min/1.73m? Final Comment: Estimated Glomerular Filtration Rate (eGFR) is calculated using the 2020 CKD-EPI creatinine equation. This equation utilizes serum creatinine, sex, and age as parameters. The creatinine assay has traceable calibration to isotope dilution-mass spectrometry. Refer to KDIGO guidelines for clinical interpretation. In patients with unstable renal function, e.g. those with acute kidney injury, the eGFR may not accurately reflect actual GFR. P.O.C.T. RESULTS: N/A August 12, 2024 TREATMENT: No Hydration needed. IV SITE: Ambulatory: A peripheral IV was started in the Right antecubital site with a Angio cath: 22 gauge. IV SITE APPEARANCE: Clean,Dry and Intact SIGNATURE: Desirae Moon RN PATIENT NAME: Madhavi Avalos DATE: August 12, 2024 TIME: 11:56 AM [facility] 08-11-2024 Instructions Rosalee Valencia APRN.SENIOR REPORT DEVELOPER - 08/11/2024 11:03 AM EDT Images from the original note were not included. [facility] PATIENT PREOPERATIVE INSTRUCTIONS Awa Reilly MD has scheduled you for your procedure at this surgery center: [facility] Scheduling Office: [phone] --[address] [place] [address]. Please read below carefully for your personalized instructions. Dietary Restrictions: - No solid food after midnight. - You may have 12 ounces of clear liquids (water, clear juices such as apple juice or gatorade, carbonated beverages, clear tea, black coffee, jello) until 2 hours before scheduled arrival at facility. Medications: Unless instructed differently below, stay on all of your medications until your surgery. If you start any new medications after today's visit, please contact your surgeon. Pre-Surgery Med Instructions Medication Instructions midodrine (PROAMITINE) 5 mg tablet Take the day of surgery with a small sip of water lactulose 10 gram/15 mL solution Do not take the day of surgery albuterol HFA (PROVENTIL HFA, VENTOLIN HFA) 90 mcg/actuation inhaler Take the day of surgery with a small sip of water cyclobenzaprine (FLEXERIL) 5 mg tablet Do not take the day of surgery oxyCODONE ir (OXYIR) 5 mg capsule If taken on day of surgery inform your surgeon and nurse spironolactone (ALDACTONE) 100 mg tablet Do not take the day of surgery torsemide (DEMADEX) 20 mg tablet Do not take the day of surgery ondansetron (ZOFRAN) 4 mg tablet Take the day of surgery with a small sip of water promethazine HCl (PROMETHAZINE ORAL) Take the day of surgery with a small sip of water If you start any new medications after today's visit, please contact the surgeon's office. Blood Thinning Medications: - Stop NSAIDS (Ibuprofen, Advil, Aleve, Motrin, Celebrex, Mobic, etc.) 7 days before surgery, as directed by your surgeon. - Stop Aspirin 7 days before surgery, as directed by your surgeon. - Stop Vitamin E, ALL multi-vitamins, herbals and dietary supplements 14 days before surgery. - You may take Tylenol (Acetaminophen) or any of your pain medications that do not contain aspirin or NSAIDS as needed. Important Reminders: - If you are prescribed inhalers for breathing, continue using them. - Candy, mints, and tobacco products are NOT permitted the morning of surgery. - Hearing aids, dentures and glasses may be worn the morning of surgery. - NO jewelry, body piercings, makeup, hairpins or contacts are to be worn the day of surgery. If you develop symptoms such as a fever, cold, or flu, or have other changes to your health within TWO DAYS of scheduled surgery or the morning of surgery, please contact the surgery center above. Personal Belongings: -Please have photo ID and insurance cards. -If you do not have a copy of advance directives on file with us, please bring a copy with you on the day of surgery. - Leave ALL valuables and money at home or with family members. For Outpatient Procedures: - YOU MUST HAVE A RESPONSIBLE SHANK THREADER TAKE YOU HOME. A CHARGE MACHINE OPERATOR OR ELIGIBILITY CLERK CANNOT BE MADE A RESPONSIBLE SHANK THREADER. - We recommend that a responsible person stays with you overnight to take care of you. - You cannot stay in a hotel alone after outpatient surgery. You will not be permitted to have your surgery, if you do not have someone to take care of you. Arrival Time for Surgery: - To obtain your arrival time for surgery, call your physician's office the day before your surgery. - If your surgery is scheduled for Sunday, call the Sunday before. Your surgeon s data sme will tell you what time to call the office. - If you have not reached the departmental data sme by 5 P.M., call [phone] after 5 P.M. the day before your surgery. Please be aware that emergency situations arise, which may delay or change your surgical time. If this happens, we will notify you as soon as possible and regret any inconvenience. If you already have an Advance Directive, please fax a copy to [phone] or email to for it to be added to your chart. If you do not have an Advance Directive, you can find the appropriate form and more information at [email or web address]. We recommend that you complete the Advance Directive form found on the website and bring it with you the day of your surgery. It can be witnessed and scanned into your chart that day. Rosalee Valencia APRN.FELICIA documented in this encounter [facility] 08-11-2024 History and physical note Images from the original note were not included. 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 Robbins Received weekly paracentesis On spironolactone, torsemide and lactulose Ron Activity Status Index: METS: Walk indoors, such as around the house (1.75 METs) Do light work around the house, such as dusting or washing dishes (2.70 METs) Take care of self; that is eating, dressing, bathing, using the toilet (2.75 METs) Walk a block or two on level ground (2.75 METs) Climb a flight of stairs or walk up a hill (5.50 METs) DASI Score: 15.45 Patient denies any chest pain or undue shortness of breath with the above physical activity. Clinical Frailty Scale: 3. Well, with treated comorbid disease STOP-Bang Score: Patient over 50 years old Male patient Denies snoring loudly Denies feeling tired, fatigued, or sleepy during the daytime Has not been observed to stop breathing or choking/gasping during sleep Denies having high blood pressure BMI less than or equal to 35 kg/m^2 Does not have a large neck STOP-Bang Score: 2 [id number] Score: Age: <65 Sex: female CHF history: No Hypertension history: No Stroke/TIA/thromboembolism history: No Vascular disease history: No Diabetes history: No [id number] Score: 1 ARISCAT Score: Age: 51-80 Preoperative SpO2: >=96% Respiratory infection in the last month: No Preoperative anemia: Yes Duration of surgery: >3 hrs Emergency procedure: No ARISCAT Score: ANESTHESIA FINDINGS: Intubation History: No abnormal airway history Significant Anesthesia Considerations: none Airway History: No abnormal airway history I - PHYSICAL EVALUATION AIRWAY Patient intubated: No. Tracheostomy tube not present Mallampati: II. TM distance: >3 FB. Neck ROM: full ROM without neurological symptoms. Mouth opening: adequate. Short neck: no. Thick neck: no Garcia present: no Lip Bite Test: I DENTAL Dental findings: missing tooth/teeth. Additional comments: Several missing upper and lower . II - ANESTHESIA PLAN Anesthetic Plan: other Beta Tomi Monitoring Plan Post Procedure Analgesic Plan Prepared for Surgery: optimally prepared for surgery, pending [see comment]. Type and Screen, CMP, CBC (ordered by surgery), CONABO and DOS exam. CONSULTS: Patient does not require consults for optimization at this time Planned Anesthetic: other The Following Tests/Procedures Have Been Initiated: Orders Placed This Encounter Confirm Blood Type Standing Status: Future Standing Expiration Date: 11/10/2024 Order Specific Question: Did Blood Bank direct you to place this order: Answer: No - Presurgical Workflow midodrine (PROAMITINE) 5 mg tablet Sig: Take 1 tablet by mouth three times a day. REASON FOR VISIT: Madhavi Avalos is a 64 year old female who is scheduled for Procedure(s) with comments: INSERT TIPS SHUNT STENT (N/A) - TIPS W/ VINEET (PORSHA) PER SHERRI Benítez at the request of Awa Schneider MD for consultation. My final recommendation will be communicated back to the requesting physician by way of shared medical record or letter. Subjective The patient has the following: COVID-19 Immunization Status Overdue - Covid-19 Vaccine ( season) Never done No completion, postpone, frequency change, or communication history exists for this topic. CHIEF COMPLAINT: Pre-Op Visit HPI: 64 year old female who has Cirrhosis of liver with ascites seen for PACC. Diagnosed with cirrhosis in 2020. She complains of abdominal pain that increases with coughing and movement. She has ascites that has been difficult to control with diuretics and LVPs. She has recurrent Ascites with weekly paracentesis despite diuretics. HH and is s/p Thoracentesis X1 on 11/2023. Scheduled for INSERT TIPS SHUNT STENT (N/A) - TIPS W/ GEN on 09/09/24. Denies any fever, chills, nausea, vomiting, SOB, dizziness, lightheadedness, palpitations, syncope, chest pain or abdominal pain. She has elected to proceed with the surgical procedure. REVIEW OF SYSTEMS: General: No weight loss, malaise or fevers. Neurological: No history of TIA's, stroke, BLOCKING MACHINE TENDER tumor, impaired sensorium, hemiplegia, paraplegia or quadraplegia. No neurological symptoms or problems. Negative for: TIA and strokes. Respiratory: No history of current cough or dyspnea, or pneumonia in the past 6 weeks. No history of respiratory/pulmonary symptoms or problems. Negative for: asthma, bronchitis, COPD, current cough, dyspnea, home oxygen, orthopnea, pneumonia within 6 weeks, tobacco use, URI < 2 weeks and obstructive sleep apnea. Cardiovascular: + Hypotension Negative for: AICD/PPM, angina, anticoagulation therapy, arrhythmia, CAD, chest pain, CHF, congenital heart defect, DVT/PE, hyperlipidemia, hypertension, recent MT and murmur/valvular heart disease. GI: Positive for: abdominal pain, liver disease, nausea and vomiting Negative for: diverticulitis, GERD, hepatitis, pancreatitis and ETOH >2 drinks/day. : Negative for: dysuria, flank pain, frequent urination, hematuria and urgency. Endocrine: No history of diabetes. Has not taken steroids within the past 30 days. No history of endocrinological symptoms or problems. Negative for: diabetes mellitus, hyperthyroidism, hypothyroidism and hyperparathyroidism. Hematology: No history of bleeding or clotting disorder. Patient is not taking anti-coagulation or platelet medications. No history of hematological symptoms or problems. Negative for: anemia. Oncology: No history of CA metastasis, chemo within 30 days, or radiotherapy within 90 days. No history of oncological symptoms or problems. Psych: No history of psychiatric symptoms or problems. Bipolar disorder: acites. Musculoskeletal: Negative for joint pain or swelling, back pain or muscle pain. Skin: Negative for lesions, rash and itching. PAST MEDICAL HISTORY Diagnosis Date History of ascites 08/11/2024 History of esophageal varices 08/10/2024 History of TB (tuberculosis) 08/10/2024 Hypotension 08/11/2024 No past surgical history on file. No family history on file. Social History Tobacco Use Smoking status: Never Smokeless tobacco: Never Substance Use Topics Alcohol use: Never Drug use: Never Prior to Admission medications as of 08/11/24 1050 Medication Sig Last Dose Taking midodrine (PROAMITINE) 5 mg tablet Take 1 tablet by mouth three times a day. Taking Yes lactulose 10 gram/15 mL solution Take 20 g by mouth three times a day. Taking Yes albuterol HFA (PROVENTIL HFA, VENTOLIN HFA) 90 mcg/actuation inhaler Inhale 2 Puffs as instructed. Taking Yes cyclobenzaprine (FLEXERIL) 5 mg tablet Take 5 mg by mouth every 8 hours as needed. Taking Yes oxyCODONE ir (OXYIR) 5 mg capsule TAKE 1 CAPSULE BY MOUTH EVERY 6 HOURS NEEDED FOR PAIN Taking Yes spironolactone (ALDACTONE) 100 mg tablet Take 3 tablets by mouth every afternoon. Taking Yes torsemide (DEMADEX) 20 mg tablet TAKE 2 TABLETS BY MOUTH IN THE MORNING AND 1 IN THE EVENING Taking Yes ondansetron (ZOFRAN) 4 mg tablet Take by mouth every 8 hours as needed for nausea/vomiting. Taking Yes promethazine HCl (PROMETHAZINE ORAL) Take by mouth. Taking Yes ciprofloxacin HCl (CIPRO) 500 mg tablet Take 1 tablet by mouth every 12 hours. metroNIDAZOLE (FLAGYL) 500 mg tablet Take 500 mg by mouth three times a day. No medication comments found. ALLERGIES No Known Allergies Objective PHYSICAL EXAM: General: alert and oriented and healthy appearance. Skin: normal color, no rash or lesions. HEENT: pupils equal round and pupils reactive to light. Cardiovascular: regular rate and rhythm, normal S1 and S2, no rub, murmurs, or gallop. Respiratory: normal breath sounds, no wheezes or crackles. No chest wall deformity or tenderness. Abdomen: bowel sounds present and soft. Extremities: no deformity, no edema or tenderness, no joint swelling or clubbing. Neurological: normal cognition and motor skills. Gait normal. No weakness or sensory deficit. PAIN ASSESSMENT: VITALS: BP 99/53[Daughter states this is normal BP[ Pulse 82 Temp (Src) 98.1 (Oral) Ht 5' 1 (1.55m) Wt 171 lb (77.6kg) SpO2 100% BMI 32.33 kg/(m^2). Diagnostic tests reviewed for today's visit: Lab Value Units Date High Low HB No results within date range. HCT No results within date range. WBC No results within date range. PLT No results within date range. NA No results within date range. K No results within date range. GLUC No results within date range. BUN No results within date range. CREAT No results within date range. PTSEC No results within date range. INR No results within date range. APTT No results within date range. ALT No results within date range. AST No results within date range. TBILI No results within date range. TSH No results within date range. Lab Value Units Date High Low HCGQT No results within date range. UHCG No results within date range. HCG, BODY* No results within date range. Lab Value Units Date High Low ABORHD No results within date range. ABSCREEN No results within date range. No results found for: HBA1C No results found for this or any previous visit (from the past 8760 hour(s)). No results found for this or any previous visit (from the past 01761 hour(s)). 02/26/2023 Echo Poor image quality. No apical or subcostal images obtained. The LV segments seen contract normally. Multiple segments not seen, thus an EF cannot be determined. Apparent normal RV function. No significant mitral or aortic valve disease on limited 2D images. No saline contrast study performed due to poor image quality. Instructions Given to Patient: Instructions located in the after visit summary. Patient given verbal and written preop instructions and voices comprehension and compliance. Offered an freight trucker, patient declined prefers daughter to interpret. SIGNATURE: Rosalee Valencia APRN.CNP PATIENT NAME: Madhavi Avalos DATE: August 11, 2024 TIME: 10:45 AM PAGER/CONTACT #: [facility] 08-11-2024 History and physical note Images from the original note were not included. 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 Robbins Received weekly paracentesis On spironolactone, torsemide and lactulose Ron Activity Status Index: METS: Walk indoors, such as around the house (1.75 METs) Do light work around the house, such as dusting or washing dishes (2.70 METs) Take care of self; that is eating, dressing, bathing, using the toilet (2.75 METs) Walk a block or two on level ground (2.75 METs) Climb a flight of stairs or walk up a hill (5.50 METs) DASI Score: 15.45 Patient denies any chest pain or undue shortness of breath with the above physical activity. Clinical Frailty Scale: 3. Well, with treated comorbid disease STOP-Bang Score: Patient over 50 years old Male patient Denies snoring loudly Denies feeling tired, fatigued, or sleepy during the daytime Has not been observed to stop breathing or choking/gasping during sleep Denies having high blood pressure BMI less than or equal to 35 kg/m^2 Does not have a large neck STOP-Bang Score: 2 [id number] Score: Age: <65 Sex: female CHF history: No Hypertension history: No Stroke/TIA/thromboembolism history: No Vascular disease history: No Diabetes history: No [id number] Score: 1 ARISCAT Score: Age: 51-80 Preoperative SpO2: >=96% Respiratory infection in the last month: No Preoperative anemia: Yes Duration of surgery: >3 hrs Emergency procedure: No ARISCAT Score: ANESTHESIA FINDINGS: Intubation History: No abnormal airway history Significant Anesthesia Considerations: none Airway History: No abnormal airway history I - PHYSICAL EVALUATION AIRWAY Patient intubated: No. Tracheostomy tube not present Mallampati: II. TM distance: >3 FB. Neck ROM: full ROM without neurological symptoms. Mouth opening: adequate. Short neck: no. Thick neck: no Garcia present: no Lip Bite Test: I DENTAL Dental findings: missing tooth/teeth. Additional comments: Several missing upper and lower . II - ANESTHESIA PLAN Anesthetic Plan: other Beta Tomi Monitoring Plan Post Procedure Analgesic Plan Prepared for Surgery: optimally prepared for surgery, pending [see comment]. Type and Screen, CMP, CBC (ordered by surgery), CONABO and DOS exam. CONSULTS: Patient does not require consults for optimization at this time Planned Anesthetic: other The Following Tests/Procedures Have Been Initiated: Orders Placed This Encounter Confirm Blood Type Standing Status: Future Standing Expiration Date: 11/10/2024 Order Specific Question: Did Blood Bank direct you to place this order: Answer: No - Presurgical Workflow midodrine (PROAMITINE) 5 mg tablet Sig: Take 1 tablet by mouth three times a day. REASON FOR VISIT: Madhavi Avalos is a 64 year old female who is scheduled for Procedure(s) with comments: INSERT TIPS SHUNT STENT (N/A) - TIPS W/ VINEET (PORSHA) PER SHERRI Benítez at the request of Awa Schneider MD for consultation. My final recommendation will be communicated back to the requesting physician by way of shared medical record or letter. Subjective The patient has the following: COVID-19 Immunization Status Overdue - Covid-19 Vaccine ( season) Never done No completion, postpone, frequency change, or communication history exists for this topic. CHIEF COMPLAINT: Pre-Op Visit HPI: 64 year old female who has Cirrhosis of liver with ascites seen for PACC. Diagnosed with cirrhosis in 2020. She complains of abdominal pain that increases with coughing and movement. She has ascites that has been difficult to control with diuretics and LVPs. She has recurrent Ascites with weekly paracentesis despite diuretics. HH and is s/p Thoracentesis X1 on 11/2023. Scheduled for INSERT TIPS SHUNT STENT (N/A) - TIPS W/ GEN on 09/09/24. Denies any fever, chills, nausea, vomiting, SOB, dizziness, lightheadedness, palpitations, syncope, chest pain or abdominal pain. She has elected to proceed with the surgical procedure. REVIEW OF SYSTEMS: General: No weight loss, malaise or fevers. Neurological: No history of TIA's, stroke, BLOCKING MACHINE TENDER tumor, impaired sensorium, hemiplegia, paraplegia or quadraplegia. No neurological symptoms or problems. Negative for: TIA and strokes. Respiratory: No history of current cough or dyspnea, or pneumonia in the past 6 weeks. No history of respiratory/pulmonary symptoms or problems. Negative for: asthma, bronchitis, COPD, current cough, dyspnea, home oxygen, orthopnea, pneumonia within 6 weeks, tobacco use, URI < 2 weeks and obstructive sleep apnea. Cardiovascular: + Hypotension Negative for: AICD/PPM, angina, anticoagulation therapy, arrhythmia, CAD, chest pain, CHF, congenital heart defect, DVT/PE, hyperlipidemia, hypertension, recent MT and murmur/valvular heart disease. GI: Positive for: abdominal pain, liver disease, nausea and vomiting Negative for: diverticulitis, GERD, hepatitis, pancreatitis and ETOH >2 drinks/day. : Negative for: dysuria, flank pain, frequent urination, hematuria and urgency. Endocrine: No history of diabetes. Has not taken steroids within the past 30 days. No history of endocrinological symptoms or problems. Negative for: diabetes mellitus, hyperthyroidism, hypothyroidism and hyperparathyroidism. Hematology: No history of bleeding or clotting disorder. Patient is not taking anti-coagulation or platelet medications. No history of hematological symptoms or problems. Negative for: anemia. Oncology: No history of CA metastasis, chemo within 30 days, or radiotherapy within 90 days. No history of oncological symptoms or problems. Psych: No history of psychiatric symptoms or problems. Bipolar disorder: acites. Musculoskeletal: Negative for joint pain or swelling, back pain or muscle pain. Skin: Negative for lesions, rash and itching. PAST MEDICAL HISTORY Diagnosis Date History of ascites 08/11/2024 History of esophageal varices 08/10/2024 History of TB (tuberculosis) 08/10/2024 Hypotension 08/11/2024 No past surgical history on file. No family history on file. Social History Tobacco Use Smoking status: Never Smokeless tobacco: Never Substance Use Topics Alcohol use: Never Drug use: Never Prior to Admission medications as of 08/11/24 1050 Medication Sig Last Dose Taking midodrine (PROAMITINE) 5 mg tablet Take 1 tablet by mouth three times a day. Taking Yes lactulose 10 gram/15 mL solution Take 20 g by mouth three times a day. Taking Yes albuterol HFA (PROVENTIL HFA, VENTOLIN HFA) 90 mcg/actuation inhaler Inhale 2 Puffs as instructed. Taking Yes cyclobenzaprine (FLEXERIL) 5 mg tablet Take 5 mg by mouth every 8 hours as needed. Taking Yes oxyCODONE ir (OXYIR) 5 mg capsule TAKE 1 CAPSULE BY MOUTH EVERY 6 HOURS NEEDED FOR PAIN Taking Yes spironolactone (ALDACTONE) 100 mg tablet Take 3 tablets by mouth every afternoon. Taking Yes torsemide (DEMADEX) 20 mg tablet TAKE 2 TABLETS BY MOUTH IN THE MORNING AND 1 IN THE EVENING Taking Yes ondansetron (ZOFRAN) 4 mg tablet Take by mouth every 8 hours as needed for nausea/vomiting. Taking Yes promethazine HCl (PROMETHAZINE ORAL) Take by mouth. Taking Yes ciprofloxacin HCl (CIPRO) 500 mg tablet Take 1 tablet by mouth every 12 hours. metroNIDAZOLE (FLAGYL) 500 mg tablet Take 500 mg by mouth three times a day. No medication comments found. ALLERGIES No Known Allergies Objective PHYSICAL EXAM: General: alert and oriented and healthy appearance. Skin: normal color, no rash or lesions. HEENT: pupils equal round and pupils reactive to light. Cardiovascular: regular rate and rhythm, normal S1 and S2, no rub, murmurs, or gallop. Respiratory: normal breath sounds, no wheezes or crackles. No chest wall deformity or tenderness. Abdomen: bowel sounds present and soft. Extremities: no deformity, no edema or tenderness, no joint swelling or clubbing. Neurological: normal cognition and motor skills. Gait normal. No weakness or sensory deficit. PAIN ASSESSMENT: VITALS: BP 99/53[Daughter states this is normal BP[ Pulse 82 Temp (Src) 98.1 (Oral) Ht 5' 1 (1.55m) Wt 171 lb (77.6kg) SpO2 100% BMI 32.33 kg/(m^2). Diagnostic tests reviewed for today's visit: Lab Value Units Date High Low HB No results within date range. HCT No results within date range. WBC No results within date range. PLT No results within date range. NA No results within date range. K No results within date range. GLUC No results within date range. BUN No results within date range. CREAT No results within date range. PTSEC No results within date range. INR No results within date range. APTT No results within date range. ALT No results within date range. AST No results within date range. TBILI No results within date range. TSH No results within date range. Lab Value Units Date High Low HCGQT No results within date range. UHCG No results within date range. HCG, BODY* No results within date range. Lab Value Units Date High Low ABORHD No results within date range. ABSCREEN No results within date range. No results found for: HBA1C No results found for this or any previous visit (from the past 8760 hour(s)). No results found for this or any previous visit (from the past 90111 hour(s)). 02/26/2023 Echo Poor image quality. No apical or subcostal images obtained. The LV segments seen contract normally. Multiple segments not seen, thus an EF cannot be determined. Apparent normal RV function. No significant mitral or aortic valve disease on limited 2D images. No saline contrast study performed due to poor image quality. Instructions Given to Patient: Instructions located in the after visit summary. Patient given verbal and written preop instructions and voices comprehension and compliance. Offered an freight trucker, patient declined prefers daughter to interpret. SIGNATURE: Rosalee Valencia APRN.FELICIA PATIENT NAME: Madhavi Avalos DATE: August 11, 2024 TIME: 10:45 AM PAGER/CONTACT #: documented in this encounter [facility] 08-06-2024 Telephone encounter Note SCHEDULED PACC ON 08/11 CT ON 08/12 LABS ON 08/12 PROCEDURE ON 09/09 SPK W/ BARAK [id number] [place] A P MANAGER ON 08/06 TO GET IN TOUCH WITH PT, SHE LEFT PT A VOICEMAIL REGARDING APPOINTMENTS [facility] 08-06-2024 Miscellaneous Notes SCHEDULED PACC ON 08/11 CT ON 08/12 LABS ON 08/12 PROCEDURE ON 09/09 SPK W/ BARAK [id number] [place] A P MANAGER ON 08/06 TO GET IN TOUCH WITH PT, SHE LEFT PT A VOICEMAIL REGARDING APPOINTMENTS INTERVENTIONAL RADIOLOGY PATIENT APPOINTMENT REQUEST August 05, 2024 Madhavi Avalos [id number] Request: Schedule Requestor: Sherri Martinez APRN.CNP Ref.Physician:Dr. Parmjit ANN Physician: Dr. Reilly Procedure/Request: TIPS Reason/ICD Code: hepatic cirrhosis with ascites Priority: routine Scheduling Comments: please schedule patient for TIPS procedure. Please schedule patient for labs and CT scan CONNIE. Please schedule for PACC appt. Does MD need to be present for consult?: N/A IR Procedure Room: To be scheduled in any room except 20 Equipment or Vendor Request: No / N/A Anticipated length of procedure (not including prep or Anesthesia): 4 hours Pre-Procedure Orders: Labs CBC, CMP, T/S, INR CT ABD/PEL PACE/IMPACT Sedation: General Anesthesia Bed Reservation: Yes G100 Location of Procedure: [facility] [place] documented in this encounter [facility] 08-05-2024 Telephone encounter Note INTERVENTIONAL RADIOLOGY PATIENT APPOINTMENT REQUEST August 05, 2024 Madhavi Avalos [id number] Request: Schedule Requestor: Sherri Martinez APRN.CNP Ref.Physician:Dr. Parmjit ANN Physician: Dr. Reilly Procedure/Request: TIPS Reason/ICD Code: hepatic cirrhosis with ascites Priority: routine Scheduling Comments: please schedule patient for TIPS procedure. Please schedule patient for labs and CT scan CONNIE. Please schedule for PACC appt. Does MD need to be present for consult?: N/A IR Procedure Room: To be scheduled in any room except 20 Equipment or Vendor Request: No / N/A Anticipated length of procedure (not including prep or Anesthesia): 4 hours Pre-Procedure Orders: Labs CBC, CMP, T/S, INR CT ABD/PEL PACE/IMPACT Sedation: General Anesthesia Bed Reservation: Yes G100 Location of Procedure: [facility] 08-05-2024 Instructions Sherri Martinez APRN.CNP - 08/05/2024 3:53 PM EDT Thank you for your time today, please plan on the following: - Plan for TIPS procedure to be done with general anesthesia - CT abdomen/pelvis with iv contrast to be done prior to TIPS procedure to assess anatomy - [facility] clinic (anesthesia visit) - Labs: T/S, CBC, CMP, Coags - Admit to Hepatology following TIPS procedure Sherri Martinez APRN.CNP IF / ONCE YOU ARE SCHEDULED FOR A PROCEDURE YOU MUST OBTAIN THE NECESSARY TESTING (INCLUDING LABWORK) REQUIRED BEFORE THE PROCEDURE. IF THIS IS NOT DONE YOUR PROCEDURE WILL BE CANCELED. Contact Information: If you have questions regarding scheduling please call [phone] select option 1 If you have questions regarding your upcoming procedure or would like to speak to an Interventional Radiology Nurse please call [phone] If you need to reach Imaging Physicians/Advanced Practice Providers please call [phone] How to upload non-[facility] images Please use this link to upload your non-[facility] images to a secure [facility] website. This avoids you having to mail the CD. Please notify the provider/service once the images have been uploaded to review in a timely fashion. There are [id number] instructions once you access the following link: [email or web address] documented in this encounter [facility] 08-05-2024 History and physical note Images from the original note were not included. INTERVENTIONAL RADIOLOGY SERVICE CONSULT NOTE SERVICE DATE: 08/05/24 SERVICE TIME: 8:00 AM PRIMARY CARE PHYSICIAN: Darlene Garibay MD Consultation requested by Dr. Robbins for an opinion regarding TIPS. Final recommendations will be communicated back to the requesting physician by way of shared Medical record or letter to requesting physician via US mail. HPI: Madhavi Avalos is a 64 year old female with a PMHx of latent TB (s/p rifampin tx for 3 months), obesity, s/p cholecystectomy 2021, and HARRISON cirrhosis. She has a hx of ascites now requiring bi-weekly paracentesis for the past 12 months, and weekly paracentesis for the past 10 months as well as management with spironolactone, lasix, and torsemide. Hx of HE, taking lactulose 3-4x per day. Hx of grade 3 EV s/p banding 10/2022. Last EGD done on 02/04/2424 grade 1 and large EV with no bleeding. On 08/29/23, TIPS was attempted at [facility], but was aborted due inability to advance the sheath into the right hepatic vein Patient presents today with her daughter. email marketing executive present throughout entire visit ([facility] telephone freight trucker). Patient states that she has had trouble with ascites for the past year. She began requiring paracentesis every 2 weeks about one year ago, but for the past 10 months, she has required weekly ema. She states that they drained 6-7L during her last paracentesis. States that she has a large umbilical hernia that causes discomfort, but denies any other abdominal pain at this time. Denies confusion or HE, currently taking lactulose 3-4x per day. Denies hematemesis. The patient is referred to Interventional Radiology for evaluation regarding a TIPS procedure. Complications of Cirrhosis: Ascites: Yes Usual paracentesis schedule Yes - weekly Non-bleeding varices: Yes Variceal hemorrage: No Varices managed by beta blockers and banding. Yes - banding 10/2022 Portosystemic encephalopathy: No - taking lactulose 3-4x per day Hepatic hydrothorax: No Recurrent Cholangitis (PSC): No Early satiety Yes - decreased appetite also Abdominal discomfort/sx No Jaundice itching No HISTORY REVIEWED (electronic chart updated): No past medical history on file. No past surgical history on file. No family history on file. Current Outpatient Medications Medication Sig albuterol HFA (PROVENTIL HFA, VENTOLIN HFA) 90 mcg/actuation inhaler Inhale 2 Puffs as instructed. ciprofloxacin HCl (CIPRO) 500 mg tablet Take 1 tablet by mouth every 12 hours. metroNIDAZOLE (FLAGYL) 500 mg tablet Take 500 mg by mouth three times a day. cyclobenzaprine (FLEXERIL) 5 mg tablet Take 5 mg by mouth every 8 hours as needed. oxyCODONE ir (OXYIR) 5 mg capsule TAKE 1 CAPSULE BY MOUTH EVERY 6 HOURS NEEDED FOR PAIN spironolactone (ALDACTONE) 100 mg tablet Take 3 tablets by mouth every afternoon. torsemide (DEMADEX) 20 mg tablet TAKE 2 TABLETS BY MOUTH IN THE MORNING AND 1 IN THE EVENING ondansetron (ZOFRAN) 4 mg tablet Take by mouth every 8 hours as needed for nausea/vomiting. promethazine HCl (PROMETHAZINE ORAL) Take by mouth. No current facility-administered medications for this visit. ALLERGIES Not on File REVIEW OF SYSTEMS: See HPI: Remaining ROS reviewed and negative unless otherwise noted in HPI. PHYSICAL EXAMINATION: BP 95/52 Pulse 100 Wt 78 kg (171 lb 15.3 oz) SpO2 97% BMI 32.49 kg/m General appearance: Well appearing, alert, in no acute distress, well-hydrated, well nourished. Skin: Skin color, texture, turgor normal, no suspicious rashes or lesions Eyes: Anicteric sclera Lungs: Lungs clear to auscultation. No wheezing, rhonchi, rales. Heart: RRR without murmur, gallop, or rubs. No ectopy Abdomen: large umbilical hernia. No pain on palpation of abdomen Extremities: No deformities, skin discoloration, or cyanosis. BLE edema. Peripheral pulses: Normal Neuro: Gait normal. Sensation grossly intact. DATA: Diagnostic tests reviewed for today's visit: Most recent labs and imaging results. - Labs 04/14/24: Tbili 2.8, Alk Phos 143, Albumin 3.0, AST 28, ALT 19, INR 1.6, Hgb 11.2, Hct 35.0, Platelets 121, BUN 34, Creatinine 0.74, GFR 90, AFP <2.2 CT ABD/PEL 07/05/23: IMPRESSION: 1. Cirrhosis with stigmata of portal hypertension, including splenomegaly, large ascites and portosystemic collaterals. 2. Moderate umbilical hernia containing fat and loculated ascites. 3. Partial visualization of severe bronchiectatic changes in the right lower lobe with bronchial wall thickening and volume loss. ECHO 08/27/23: Very technically challenging study despite the use of contrast. Poor apical windows Overall, suspect normal left ventricular size and systolic function. LVEF of approximately 55-60%. Normal diastolic function Right sided chambers not well seen No obvious significant valvular abnormalities Unable to assess RVSP due to poor TR jet signal Agitated saline study performed using off axis views. No obvious shunt seen but sensitivity severely reduced due to poor image quality Fluid collection seen posterior to right atrium in limited apical views - suspect ascites Left Ventricle Left ventricle not well visualized. Chamber size is normal. Normal wall thickness. Normal global systolic function. Regional wall motion is normal. Ejection fraction is normal (55 - 60%). Diastolic function is normal. Last EGD 02/04/24: Findings: The Z-line was regular and was found 38 cm from the incisors. Grade I, large (> 5 mm) varices with no bleeding and no stigmata of recent bleeding were found in the middle third of the esophagus and in the lower third of the esophagus. No red naida signs were present. Scarring from prior treatment was visible. Portal hypertensive gastropathy was found in the entire examined stomach. The examined duodenum was normal. Impression: - Z-line regular, 38 cm from the incisors. - Grade I and large (> 5 mm) esophageal varices with no bleeding and no stigmata of recent bleeding. - Portal hypertensive gastropathy. - Normal examined duodenum. - No specimens collected. Computed MELD 3.0 unavailable. One or more values for this score either were not found within the given timeframe or did not fit some other criterion. Computed MELD-Na unavailable. One or more values for this score either were not found within the given timeframe or did not fit some other criterion. ASSESSMENT: Madhavi Avalos is a 64 year old female with a PMHx of latent TB (s/p rifampin tx for 3 months), obesity, s/p cholecystectomy 2021, and HARRISON cirrhosis. She has a hx of ascites now requiring bi-weekly paracentesis for the past 12 months, and weekly paracentesis for the past 10 months as well as management with spironolactone, lasix, and torsemide. Hx of HE, taking lactulose 3-4x per day. Hx of grade 3 EV s/p banding 10/2022. Last EGD done on 02/04/2424 grade 1 and large EV with no bleeding. On 08/29/23, TIPS was attempted at [facility], but was aborted due inability to advance the sheath into the right hepatic vein Patient presents today with her daughter. 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 Patient states that she has had trouble with ascites for the past year. She began requiring paracentesis every 2 weeks about one year ago, but for the past 10 months, she has required weekly ema. She states that they drained 6-7L during her last paracentesis. States that she has a large umbilical hernia that causes discomfort, but denies any other abdominal pain at this time. Denies confusion or HE, currently taking lactulose 3-4x per day. Denies hematemesis. The patient is referred to Interventional Radiology for evaluation regarding a TIPS procedure. PLAN - Dr. Reilly was present and all information and imaging was reviewed - Plan for TIPS procedure to be done with VINEET - CT abdomen/pelvis with iv contrast to be done prior to TIPS procedure to assess anatomy - [facility]/ [facility] - AC: No - Labs: T/S, CBC, CMP, Coags - 2D ECHO pre procedure No - last done in 07/[address] Reilly - Para/Thora 1 day prior Yes - Admit to Hepatology following TIPS procedure - Order LVUS 5-7 days post-op to establish baseline velocities IR procedure schedulers and coordinators will contact her regarding dates and times of pre procedure testing and consultations with [facility]/ [facility] clinic The risks, benefits, alternatives and personnel involved with the procedure were discussed in detail. There was opportunity for question and answer. I spent a total of 60 minutes on the date of the service which included preparing to see the patient, [id number] patient care, completing clinical documentation, obtaining and/or reviewing separately obtained history, performing a medically appropriate examination, counseling and educating the patient/family/caregiver, ordering medications, tests, or procedures, and communicating with other HCPs (not separately reported). SIGNATURE: Sherri Martinez APRN.CNP PATIENT NAME: Madhavi Avalos DATE: August 05, 2024 TIME: 3:48 PM [facility] 08-05-2024 History and physical note Images from the original note were not included. INTERVENTIONAL RADIOLOGY SERVICE CONSULT NOTE SERVICE DATE: 08/05/24 SERVICE TIME: 8:00 AM PRIMARY CARE PHYSICIAN: Darlene Garibay MD Consultation requested by Dr. Robbins for an opinion regarding TIPS. Final recommendations will be communicated back to the requesting physician by way of shared Medical record or letter to requesting physician via US mail. HPI: Madhavi Avalos is a 64 year old female with a PMHx of latent TB (s/p rifampin tx for 3 months), obesity, s/p cholecystectomy 2021, and HARRISON cirrhosis. She has a hx of ascites now requiring bi-weekly paracentesis for the past 12 months, and weekly paracentesis for the past 10 months as well as management with spironolactone, lasix, and torsemide. Hx of HE, taking lactulose 3-4x per day. Hx of grade 3 EV s/p banding 10/2022. Last EGD done on 02/04/2424 grade 1 and large EV with no bleeding. On 08/29/23, TIPS was attempted at [facility], but was aborted due inability to advance the sheath into the right hepatic vein Patient presents today with her daughter. 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 Patient states that she has had trouble with ascites for the past year. She began requiring paracentesis every 2 weeks about one year ago, but for the past 10 months, she has required weekly ema. She states that they drained 6-7L during her last paracentesis. States that she has a large umbilical hernia that causes discomfort, but denies any other abdominal pain at this time. Denies confusion or HE, currently taking lactulose 3-4x per day. Denies hematemesis. The patient is referred to Interventional Radiology for evaluation regarding a TIPS procedure. Complications of Cirrhosis: Ascites: Yes Usual paracentesis schedule Yes - weekly Non-bleeding varices: Yes Variceal hemorrage: No Varices managed by beta blockers and banding. Yes - banding 10/2022 Portosystemic encephalopathy: No - taking lactulose 3-4x per day Hepatic hydrothorax: No Recurrent Cholangitis (PSC): No Early satiety Yes - decreased appetite also Abdominal discomfort/sx No Jaundice itching No HISTORY REVIEWED (electronic chart updated): No past medical history on file. No past surgical history on file. No family history on file. Current Outpatient Medications Medication Sig albuterol HFA (PROVENTIL HFA, VENTOLIN HFA) 90 mcg/actuation inhaler Inhale 2 Puffs as instructed. ciprofloxacin HCl (CIPRO) 500 mg tablet Take 1 tablet by mouth every 12 hours. metroNIDAZOLE (FLAGYL) 500 mg tablet Take 500 mg by mouth three times a day. cyclobenzaprine (FLEXERIL) 5 mg tablet Take 5 mg by mouth every 8 hours as needed. oxyCODONE ir (OXYIR) 5 mg capsule TAKE 1 CAPSULE BY MOUTH EVERY 6 HOURS NEEDED FOR PAIN spironolactone (ALDACTONE) 100 mg tablet Take 3 tablets by mouth every afternoon. torsemide (DEMADEX) 20 mg tablet TAKE 2 TABLETS BY MOUTH IN THE MORNING AND 1 IN THE EVENING ondansetron (ZOFRAN) 4 mg tablet Take by mouth every 8 hours as needed for nausea/vomiting. promethazine HCl (PROMETHAZINE ORAL) Take by mouth. No current facility-administered medications for this visit. ALLERGIES Not on File REVIEW OF SYSTEMS: See HPI: Remaining ROS reviewed and negative unless otherwise noted in HPI. PHYSICAL EXAMINATION: BP 95/52 Pulse 100 Wt 78 kg (171 lb 15.3 oz) SpO2 97% BMI 32.49 kg/m General appearance: Well appearing, alert, in no acute distress, well-hydrated, well nourished. Skin: Skin color, texture, turgor normal, no suspicious rashes or lesions Eyes: Anicteric sclera Lungs: Lungs clear to auscultation. No wheezing, rhonchi, rales. Heart: RRR without murmur, gallop, or rubs. No ectopy Abdomen: large umbilical hernia. No pain on palpation of abdomen Extremities: No deformities, skin discoloration, or cyanosis. BLE edema. Peripheral pulses: Normal Neuro: Gait normal. Sensation grossly intact. DATA: Diagnostic tests reviewed for today's visit: Most recent labs and imaging results. - Labs 04/14/24: Tbili 2.8, Alk Phos 143, Albumin 3.0, AST 28, ALT 19, INR 1.6, Hgb 11.2, Hct 35.0, Platelets 121, BUN 34, Creatinine 0.74, GFR 90, AFP <2.2 CT ABD/PEL 07/05/23: IMPRESSION: 1. Cirrhosis with stigmata of portal hypertension, including splenomegaly, large ascites and portosystemic collaterals. 2. Moderate umbilical hernia containing fat and loculated ascites. 3. Partial visualization of severe bronchiectatic changes in the right lower lobe with bronchial wall thickening and volume loss. ECHO 08/27/23: Very technically challenging study despite the use of contrast. Poor apical windows Overall, suspect normal left ventricular size and systolic function. LVEF of approximately 55-60%. Normal diastolic function Right sided chambers not well seen No obvious significant valvular abnormalities Unable to assess RVSP due to poor TR jet signal Agitated saline study performed using off axis views. No obvious shunt seen but sensitivity severely reduced due to poor image quality Fluid collection seen posterior to right atrium in limited apical views - suspect ascites Left Ventricle Left ventricle not well visualized. Chamber size is normal. Normal wall thickness. Normal global systolic function. Regional wall motion is normal. Ejection fraction is normal (55 - 60%). Diastolic function is normal. Last EGD 02/04/24: Findings: The Z-line was regular and was found 38 cm from the incisors. Grade I, large (> 5 mm) varices with no bleeding and no stigmata of recent bleeding were found in the middle third of the esophagus and in the lower third of the esophagus. No red naida signs were present. Scarring from prior treatment was visible. Portal hypertensive gastropathy was found in the entire examined stomach. The examined duodenum was normal. Impression: - Z-line regular, 38 cm from the incisors. - Grade I and large (> 5 mm) esophageal varices with no bleeding and no stigmata of recent bleeding. - Portal hypertensive gastropathy. - Normal examined duodenum. - No specimens collected. Computed MELD 3.0 unavailable. One or more values for this score either were not found within the given timeframe or did not fit some other criterion. Computed MELD-Na unavailable. One or more values for this score either were not found within the given timeframe or did not fit some other criterion. ASSESSMENT: Madhavi Avalos is a 64 year old female with a PMHx of latent TB (s/p rifampin tx for 3 months), obesity, s/p cholecystectomy 2021, and HARRISON cirrhosis. She has a hx of ascites now requiring bi-weekly paracentesis for the past 12 months, and weekly paracentesis for the past 10 months as well as management with spironolactone, lasix, and torsemide. Hx of HE, taking lactulose 3-4x per day. Hx of grade 3 EV s/p banding 10/2022. Last EGD done on 02/04/2424 grade 1 and large EV with no bleeding. On 08/29/23, TIPS was attempted at [facility], but was aborted due inability to advance the sheath into the right hepatic vein Patient presents today with her daughter. email marketing executive present throughout entire visit ([facility] telephone freight trucker). Patient states that she has had trouble with ascites for the past year. She began requiring paracentesis every 2 weeks about one year ago, but for the past 10 months, she has required weekly ema. She states that they drained 6-7L during her last paracentesis. States that she has a large umbilical hernia that causes discomfort, but denies any other abdominal pain at this time. Denies confusion or HE, currently taking lactulose 3-4x per day. Denies hematemesis. The patient is referred to Interventional Radiology for evaluation regarding a TIPS procedure. PLAN - Dr. Reilly was present and all information and imaging was reviewed - Plan for TIPS procedure to be done with VINEET - CT abdomen/pelvis with iv contrast to be done prior to TIPS procedure to assess anatomy - [facility]/ [facility] - AC: No - Labs: T/S, CBC, CMP, Coags - 2D ECHO pre procedure No - last done in 07/[address] Reilly - Para/Thora 1 day prior Yes - Admit to Hepatology following TIPS procedure - Order LVUS 5-7 days post-op to establish baseline velocities IR procedure schedulers and coordinators will contact her regarding dates and times of pre procedure testing and consultations with [facility]/ [facility] clinic The risks, benefits, alternatives and personnel involved with the procedure were discussed in detail. There was opportunity for question and answer. I spent a total of 60 minutes on the date of the service which included preparing to see the patient, [id number] patient care, completing clinical documentation, obtaining and/or reviewing separately obtained history, performing a medically appropriate examination, counseling and educating the patient/family/caregiver, ordering medications, tests, or procedures, and communicating with other HCPs (not separately reported). SIGNATURE: Sherri Martinez APRN.CNP PATIENT NAME: Madhavi Avalos DATE: August 05, 2024 TIME: 3:48 PM documented in this encounter [facility] 07-03-2024 Telephone encounter Note Called the patient, she didn't worm picker. Called daughter and spoke with her [phone] and she will bring her for IR evaluation for TIPS procedure. Gave her the appointment line. Also told her that her mom doesn't qualify for a liver transplant at [facility] at this moment. Xiao Neff (click to page) PGY-4 Gastroenterology & Hepatology July 03, 2024 11:25 AM [facility] 07-03-2024 Miscellaneous Notes Called the patient, she didn't worm picker. Called daughter and spoke with her [phone] and she will bring her for IR evaluation for TIPS procedure. Gave her the appointment line. Also told her that her mom doesn't qualify for a liver transplant at [facility] at this moment. Xiao Neff (click to page) PGY-4 Gastroenterology & Hepatology July 03, 2024 11:25 AM documented in this encounter [facility] 07-02-2024 Telephone encounter Note Pt not transplant eligible due to no insurance coverage for transplant. TIPS consult order pended for review. Ana Cristina Albert RN July 02, 2024 3:10 PM Order reviewed and signed. Tried calling [phone] to update the patient, she didn't pickup. Xiao Neff (click to page) PGY-4 Gastroenterology & Hepatology July 03, 2024 7:23 AM [facility] 07-02-2024 Miscellaneous Notes Pt not transplant eligible due to no insurance coverage for transplant. TIPS consult order pended for review. Ana Cristina Albert RN July 02, 2024 3:10 PM Order reviewed and signed. Tried calling [phone] to update the patient, she didn't pickup. Xiao Neff (click to page) PGY-4 Gastroenterology & Hepatology July 03, 2024 7:23 AM documented in this encounter [facility] 06-26-2024 Instructions Xiao Neff MD - 06/26/2024 11:37 AM EDT - Initiate transplant evaluation at [facility] - will reach out to the material coordinator - Initiate TIPS evaluation - Medications as per local GI doctor and ascites management with drainage locally, follow up locally documented in this encounter [facility] 06-26-2024 Note HNO ID: [id number] Author: ALVINO ROBBINS MD Service: ? Author Type: Physician Type: Progress Notes Filed: 06/26/2024 11:55 Note Text: Hepatology Clinic A5 Digestive Disease [facility] Date of Service: June 26, 2024 Patient: Madhavi Avalos Preceptor: Dr. Robbins History of Present Illness Madhavi Avalos is a 64 year old YO female who presents today (June 26, 2024) to gastroenterology clinic for establishing care for HARRISON cirrhosis and consideration for TIPS for refractory ascites. 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 Here with daughter. She is here for issues with cirrhosis. She sees someone at a local hospital in [place], [place]. This problem started about a year back. The OSH records in care everywhere are not loading. I looked at hedyt in her daughter phone for collateral records. Sees Zahraa Tony MD who has been prescribing the medications for her. She has been having ascites for the same during the same time frame of 1.5 years. Now needing weekly paracentesis and is on high dose diuretics. She was admitted for elective TIPS on 08/29, however due to patient's anatomy, size of the liver, length of the right hepatic vein and the angle between the right atrium, IVC and right hepatic vein, it was not possible to advance the sheath into the right hepatic vein. She has epigastric pain for 4 days. Lately in the last few months, 4L/3.5L is being drained, before they used to drain 7L. This is her usual pain 2/2 abdominal distension and umbilical hernia. Last paracentesis Sunday. She has nausea, but no vomiting. No issues with diarrhea. No melena or hematochezia. She denied ETOH use. No smoking. She lost about 55lbs during the last year. Has anyone in your family (grandparents, parents, brothers, sisters, aunts, or uncles) had: Liver problems: No Colitis: No Colon cancer:No Celiac disease: No Lives in [facility], 1[place] hrs away. Lives with family. Works: not working currently She is originally from [facility] [not a [place] Citizen, undergoing [place] immigration process] Patient has no other concerns today. GI workup 11/08/2023 RUQ US Impression: - Fatty infiltration of the liver - Ascites 07/05/2023 CT A/P with Contrast IMPRESSION: 1. [...] study performed due to poor image quality. 02/04/2024 EGD Impression: - Z-line regular, 38 cm from the incisors. - Grade I and large (> 5 mm) esophageal varices with no bleeding and no stigmata of recent bleeding. - Portal hypertensive gastropathy. - Normal examined duodenum. - No specimens collected. 09/11/2023 EGD Impression: - Small (< 5 [...] of the duodenum - No specimens collected Vaccinations Hepatitis A:immunized Hepatitis B:no immunity Review of Systems Review of Systems Constitutional: Negative for chills, diaphoresis, fever, malaise/fatigue and weight loss. HENT: Negative. Eyes: Negative. Respiratory: Positive for shortness of breath. Negative for cough, hemoptysis, sputum production and wheezing. Cardiovascular: Positive for leg swelling. Negative for chest pain, palpitations, orthopnea, claudication and PND. Gastrointestinal: See HPI Genitourinary: Negative. Musculoskeletal: Negative. Skin: Negative for itching and rash. (more content not included)... [facility] 06-26-2024 History of Presen t illness Narrative Images from the original note were not included. Hepatology Clinic A5 Digestive Disease [facility] Date of Service: June 26, 2024 Patient: Madhavi Avalos Preceptor: Dr. Robbins History of Present Illness Madhavi Avalos is a 64 year old YO female who presents today (June 26, 2024) to gastroenterology clinic for establishing care for HARRISON cirrhosis and consideration for TIPS for refractory ascites. 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 Here with daughter. She is here for issues with cirrhosis. She sees someone at a local hospital in [place], [place]. This problem started about a year back. The OSH records in care everywhere are not loading. I looked at mychart in her daughter phone for collateral records. Sees Zahraa Tony MD who has been prescribing the medications for her. She has been having ascites for the same during the same time frame of 1.5 years. Now needing weekly paracentesis and is on high dose diuretics. She was admitted for elective TIPS on 08/29, however due to patient's anatomy, size of the liver, length of the right hepatic vein and the angle between the right atrium, IVC and right hepatic vein, it was not possible to advance the sheath into the right hepatic vein. She has epigastric pain for 4 days. Lately in the last few months, 4L/3.5L is being drained, before they used to drain 7L. This is her usual pain 2/2 abdominal distension and umbilical hernia. Last paracentesis Cheryl. She has nausea, but no vomiting. No issues with diarrhea. No melena or hematochezia. She denied ETOH use. No smoking. She lost about 55lbs during the last year. Has anyone in your family (grandparents, parents, brothers, sisters, aunts, or uncles) had: Liver problems: No Colitis: No Colon cancer:No Celiac disease: No Lives in [facility], 1[place] hrs away. Lives with family. Works: not working currently She is originally from [place] [not a [place] Citizen, undergoing [place] immigration process] Patient has no other concerns today. GI workup 11/08/2023 RUQ US Impression: - Fatty infiltration of the liver - Ascites 07/05/2023 CT A/P with Contrast IMPRESSION: 1. [...] study performed due to poor image quality. 02/04/2024 EGD Impression: - Z-line regular, 38 cm from the incisors. - Grade I and large (> 5 mm) esophageal varices with no bleeding and no stigmata of recent bleeding. - Portal hypertensive gastropathy. - Normal examined duodenum. - No specimens collected. 09/11/2023 EGD Impression: - Small (< 5 [...] of the duodenum - No specimens collected Vaccinations Hepatitis A:immunized Hepatitis B:no immunity Review of Systems Review of Systems Constitutional: Negative for chills, diaphoresis, fever, malaise/fatigue and weight loss. HENT: Negative. Eyes: Negative. Respiratory: Positive for shortness of breath. Negative for cough, hemoptysis, sputum production and wheezing. Cardiovascular: Positive for leg swelling. Negative for chest pain, palpitations, orthopnea, claudication and PND. Gastrointestinal: See HPI Genitourinary: Negative. Musculoskeletal: Negative. Skin: Negative for itching and rash. Neurological: Negative. Endo/Heme/Allergies: Negative. Psychiatric/Behavioral: Negative. Current Medications Current Outpatient Medications on File Prior to Visit Medication Sig albuterol HFA (PROVENTIL HFA, VENTOLIN HFA) 90 mcg/actuation inhaler Inhale 2 Puffs as instructed. ciprofloxacin HCl (CIPRO) 500 mg tablet Take 1 tablet by mouth every 12 hours. metroNIDAZOLE (FLAGYL) 500 mg tablet Take 500 mg by mouth three times a day. cyclobenzaprine (FLEXERIL) 5 mg tablet Take 5 mg by mouth every 8 hours as needed. oxyCODONE ir (OXYIR) 5 mg capsule TAKE 1 CAPSULE BY MOUTH EVERY 6 HOURS NEEDED FOR PAIN spironolactone (ALDACTONE) 100 mg tablet Take 3 tablets by mouth every afternoon. torsemide (DEMADEX) 20 mg tablet TAKE 2 TABLETS BY MOUTH IN THE MORNING AND 1 IN THE EVENING ondansetron (ZOFRAN) 4 mg tablet Take by mouth every 8 hours as needed for nausea/vomiting. promethazine HCl (PROMETHAZINE ORAL) Take by mouth. No current facility-administered medications on file prior to visit. Allergies ALLERGIES Not on File Physical Exam VITAL SIGNS: BP 103/61 Pulse 88 Temp (Src) 98 (Temporal) Ht 5' 1 (1.55m) Wt 163 lb 2.3 oz (74.0kg) SpO2 100% BMI 30.84 kg/(m^2). Physical Exam Constitutional: General: She is not in acute distress. Appearance: Normal appearance. She is not ill-appearing or toxic-appearing. Eyes: General: No scleral icterus. Right eye: No discharge. Left eye: No discharge. Extraocular Movements: Extraocular movements intact. Conjunctiva/sclera: Conjunctivae normal. Pupils: Pupils are equal, round, and reactive to light. Cardiovascular: Rate and Rhythm: Normal rate and regular rhythm. Pulses: Normal pulses. Heart sounds: Normal heart sounds. Pulmonary: Effort: Pulmonary effort is normal. No respiratory distress. Breath sounds: Normal breath sounds. No wheezing or rales. Abdominal: General: Abdomen is flat. There is distension. Palpations: Abdomen is soft. Tenderness: There is no abdominal tenderness. There is no right CVA tenderness, left CVA tenderness or guarding. Comments: Has umbilical hernia. Fluid wave + Musculoskeletal: General: Swelling present. Normal range of motion. Right lower leg: Edema present. Left lower leg: Edema present. Skin: Capillary Refill: Capillary refill takes less than 2 seconds. Neurological: General: No focal deficit present. Mental Status: She is alert and oriented to person, place, and time. Mental status is at baseline. Psychiatric: Mood and Affect: Mood normal. Behavior: Behavior normal. Thought Content: Thought content normal. Judgment: Judgment normal. Labs Assessment & Plan Madhavi Avalos is a 64 year old YO female who presents today (June 26, 2024) to clinic for establishing care for HARRISON cirrhosis and consideration for TIPS for refractory ascites. PMHx is significant for: - Decompensated HARRISON Cirrhosis, c/b refractory ascites now needing weekly paracentesis 6mos, Hx of G3EV s/p banding @[facility], HE on lactulose - On spironolactone 100mg TID; Lsaix 40mg BD; Torsemide 20mg AM, PM; low sodium diet - On midodrine 5mg TID - On lactulose TID/QID - Latent TB s/p rifampin tx for 3 months [IGRA positive 05/20] - Obesity Class I, BMI 30 - Hx of Cholecystectomy 2021 ASSESSMENT/PLAN: 1. 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 Refractory ascites - ICD9: 789.59, ICD10: R18.8 3. Esophageal varices without bleeding, unspecified esophageal varices type (HCC) - ICD9: 456.1, ICD10: I85.00 4. Class 1 drug-induced obesity with serious comorbidity and body mass index (BMI) of 30.0 to 30.9 in adult - ICD9: 278.00, V85.30, ICD10: E66.1, Z68.30 5. Hepatic encephalopathy (HCC) - ICD9: 572.2, ICD10: K76.82 Plan: - Initiate transplant evaluation at [facility] - will reach out to the material coordinator [She is originally from [facility] [not a [place] Citizen, undergoing [place] immigration process] - Initiate TIPS evaluation - Medications as per local GI doctor and ascites management with drainage locally, follow up locally Xiao Neff MD Patient seen with: Dr. Parmjit Neff (click to page) PGY-4 Gastroenterology & Hepatology June 26, 2024 10:41 AM [facility] STAFF PHYSICIAN NOTE OF PERSONAL INVOLVEMENT IN CARE I have reviewed the documentation by Dr. Daniel and I personally participated in the lisa components. I have discussed the case and management of the patient's care. I spent a total of 70 minutes on the date of the service which included preparing to see the patient, [id number] patient care, completing clinical documentation, obtaining and/or reviewing separately obtained history, performing a medically appropriate examination, counseling and educating the patient/family/caregiver and ordering medications, tests, or procedures. Patient will clearly benefit from OLT given her relatively young age, over all good health short of cirrhosis. high MELD and complications of portal hypertension. I am not certain of her financial candidacy as she is in the process of acquiring [place] citizenship but does not have it yet, She will also benefit from TIPS especially that she had no significant encephalopathy. However given that TIPS was not technically possible locally (not able to complete the procedure), we will begin OLT assessment first before a re-attempt here at [facility]. Alvino Robbins MD June 26, 2024 documented in this encounter [facility] 05-14-2024 Telephone encounter Note Contacted [employer] ([id number]), spoke with [employer]. Advised of paitent needing to be rescheduled with correct provider for Hepatology as patient's appointment scheduled with Liver Surgeon. Mirabel attempted to contact patient's mobile line first. Per [employer] mobile phone number is full and unable to leave message. Able to leave message on patient's home and advised to related this message to patient advised scheduled with incorrect provider and will need to to rescheduled with Gastroenterology/Hepatology , option (zero). Appointment to be cancelled as no records or Imaging for patient and unable to reach to discuss. Nurse Coordinator Danica Louie RN advised. Afia Chaves LPN [facility] 05-14-2024 Miscellaneous Notes Contacted [employer] ([id number]), spoke with [employer]. Advised of paitent needing to be rescheduled with correct provider for Hepatology as patient's appointment scheduled with Liver Surgeon. Mirabel attempted to contact patient's mobile line first. Per [employer] mobile phone number is full and unable to leave message. Able to leave message on patient's home and advised to related this message to patient advised scheduled with incorrect provider and will need to to rescheduled with Gastroenterology/Hepatology , option (zero). Appointment to be cancelled as no records or Imaging for patient and unable to reach to discuss. Nurse Coordinator Danica Louie RN advised. Afia Chaves LPN documented in this encounter [facility] 04-14-2024 History of Presen t illness Narrative CLINICAL CARE TEAM: -Referring Provider for today's consult: Self, Self -Primary Care Provider: Darlene Garibay HISTORY OF PRESENT ILLNESS: Madhavi Avalos is a 64 y.o. female who presents to the [facility] Hepatology [facility] today for follow-up. I have reviewed her medical, surgical, and social history and have updated medication and allergy information in the computerized patient record. Qualified freight trucker was present as primary freight trucker to interpret during the following: clinic visit. The primary freight trucker resource was qualified video freight trucker: ID # [id number] If qualified freight trucker did not interpret as primary, reason was: N/A If qualified freight trucker refused by patient/authorized customer account representative, waiver form N/A, qualified freight trucker N/A to shadow. Madhavi Avalos has a history of decompensated [facility] cirrhosis c/b refractory ascites despite diuretics [...] was discontinue and she was started on torsemide/aldactone. She developed HH and underwent thoracentesis x1 in 11/2023. LILI with Dr. Vital 01/02/2024. Since her last clinic visit, the patient reports ongoing issues with ascites requiring weekly paracentesis with 7-8L removed. She continues on torsemide 40/20 and spironolactone 300 mg daily. She is compliant with a low sodium diet. She endorses intermittent diffuse abdominal pain that worsens with coughing and movement. She rates this pain as 10/10 when it occurs. She is moving her bowels 4-5x/day. Her thinking has been clear. Otherwise, she denies pruritus, gastrointestinal bleeding or mental status changes suggestive of encephalopathy. Otherwise, she denies any recent fevers, chills, night sweats, unexpected weight loss, chest pain, vomiting, diarrhea, constipation, melena, hematochezia. PAST MEDICAL, SURGICAL, FAMILY, & SOCIAL HISTORY: Past Medical History: Diagnosis Date Abdominal wall hernia Liver disease HARRISON cirrhosis Obesity TB (tuberculosis) 01/2023 Completed treated for 3 months Past Surgical History: Procedure Laterality Date INSERTION SHUNT TRANSVENOUS INTRAHEPATIC PORTOSYSTEMIC PERCUTANEOUS (TIPS) N/A 08/29/2023 Laterality: N/A; Surgeon: Amber Clemons MD; Location: [facility] INTERVENTIONAL RADIOLOGY (VIR) PARACENTESIS ABDOMINAL W/ IMAGING GUIDANCE N/A 08/29/2023 Laterality: N/A; Surgeon: Amber Clemons MD; Location: [facility] INTERVENTIONAL RADIOLOGY (VIR) ESOPHAGOSCOPY W/ LIGATION BAND ESOPHAGEAL VARICES 10/2022 CHOLECYSTECTOMY 2021 Family History Problem Relation Age of Onset Colorectal Cancer Neg Hx GI Disease Neg Hx Social History Socioeconomic History Marital status: Tobacco Use Smoking status: Never Smokeless tobacco: Never Vaping Use Vaping status: Never Used Substance and Sexual Activity Alcohol use: Never [...] mouth daily. Torsemide 20 MG tablet Take 40 mg in the AM and 20 mg in the PM midodrine 5 MG tablet Take 1 tablet by mouth 3 times daily. ALLERGIES: Patient has no allergy information on record. PHYSICAL EXAM: BP 94/56 Pulse 87 Resp 18 Ht 1.549 m (5' 1 ) Wt 72.2 kg (159 lb 1.6 oz) SpO2 98% BMI 30.06 kg/m Smoking Status Never Constitutional: Breathing easily, in no acute distress. Does not appear cachectic. HEENT: PER, neg scleral icterus, normal appearing oropharynx, no appreciable cervical LAD Cardiovascular: Normal rate and regular rhythm. Pulmonary/Chest: RML and RLL crackles. Abdominal: Soft. Distended. NT. HS. Extrem: 1-2+ BLE edema. No gross focal motor deficits [...] record. Lab Results Component Value Date/Time PT 18.8 (H) 01/02/2024 11:10 AM INR 1.6 (H) 01/02/2024 11:10 AM PLATELET 119 (L) 01/02/2024 11:09 AM WBC 5.01 01/02/2024 11:09 AM HGB 11.5 01/02/2024 11:09 AM POTASSIUM 4.1 01/02/2024 11:10 AM POTASSIUM 6.3 (HH) 08/29/2023 11:40 AM BUN 20 01/02/2024 11:10 AM CREATSERUM 0.69 01/02/2024 11:10 AM CREATSERUM 0.49 (L) 07/05/2023 05:10 PM GFR >90 01/02/2024 11:10 AM GFR >90 07/05/2023 05:10 PM Lab Results Component Value Date ALT 18 01/02/2024 AST 30 01/02/2024 ALKPHOS 157 (H) 01/02/2024 BILITOTAL 2.3 (H) 01/02/2024 BILIDIRECT 0.8 (H) 10/16/2023 MELD 3.0: 18 at 01/02/2024 11:10 AM [...] years Sex: Female at 01/02/2024 11:10 AM Wt Readings from Last 3 Encounters: 04/14/24 72.2 kg (159 lb 1.6 oz) 01/02/24 80.1 kg (176 lb 9.6 oz) 10/16/23 76.6 kg (168 lb 14.4 oz) Imaging/Procedures 11/08/2023 RUQ US Impression: - Fatty infiltration of the liver - Ascites 07/05/2023 CT A/P with Contrast IMPRESSION: 1. [...] study performed due to poor image quality. 02/04/2024 EGD Impression: - Z-line regular, 38 cm from the incisors. - Grade I and large (> 5 mm) esophageal varices with no bleeding and no stigmata of recent bleeding. - Portal hypertensive gastropathy. - Normal examined duodenum. - No specimens collected. 09/11/2023 EGD Impression: - Small (< 5 [...] ASSESSMENT AND PLAN: Madhavi Avalos is a 64 y.o. female with a history of decompensated [facility] cirrhosis c/b refractory ascites despite diuretics [...] diuretic refractory ascites requiring weekly paracentesis. Plan [facility] Cirrhosis: MELD 3.0 18 from previous labs. Will recheck MELD labs today. Ascites: Abdomen distended, soft. Requiring weekly ema with 7-8L removed. Unfortunately, her anatomy was not amenable to TIPS. 1-2+ BLE edema. +R posterior lung crackles. Will up titrate diuretics as renal function allows. I would recommend adherence to a strict 2 gram, low sodium diet. EV: 01/2024 EGD with grade I and large EVs without stigmata. Repeat EGD due in 9-12mos, will assist with scheduling HE: A&Ox4. Hx of HE. Continue lactulose, titrate to 3-4 BMs/day HCC: Given her worsening abdominal pain, will order CT with Contrast for further evaluation and HCC screening. I would recommend ongoing surveillance for HCC with abdominal imaging in conjunction with serum AFP every 6 months. 2. Hypotension: BP 94/56. Will start midodrine 5 mg TID in hope to increase diuretics further In addition, I would recommend vaccination against [...] to Dr. Vital's clinic as scheduled on 08/05/2024 Thank you for allowing me to participate in the care of Madhavi Avalos. VANCE Cuellar Hepatology Nurse Practitioner Division of Gastroenterology, Hepatology, & Nutrition [facility] This nurse verified patient's name and documented in this encounter [facility] 02-04-2024 History and physical note ENDOSCOPIC PREPROCEDURE HISTORY AND PHYSICAL HISTORY OF PRESENT ILLNESS: Madhavi Avalos is a 64 y.o. female seen in the preoprocedure area at [facility] ENDOSCOPY. The indication for endoscopic evaluation includes: 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 Reports prior band ligation about 1yr previously. Last PLT 119, INR 1.6 PAST MEDICAL HISTORY: Past Medical History: Diagnosis Date Abdominal wall hernia Liver disease HARRISON cirrhosis Obesity TB (tuberculosis) 01/2023 Completed treated for 3 months SURGICAL HISTORY: Past Surgical History: Procedure Laterality Date INSERTION SHUNT TRANSVENOUS INTRAHEPATIC PORTOSYSTEMIC PERCUTANEOUS (TIPS) N/A 08/29/2023 Laterality: N/A; Surgeon: Amber Clemons MD; Location: [facility] INTERVENTIONAL RADIOLOGY (VIR) PARACENTESIS ABDOMINAL W/ IMAGING GUIDANCE N/A 08/29/2023 Laterality: N/A; Surgeon: Amber Clemons MD; Location: [facility] INTERVENTIONAL RADIOLOGY (VIR) ESOPHAGOSCOPY W/ LIGATION BAND ESOPHAGEAL VARICES 10/2022 CHOLECYSTECTOMY 2021 MEDICATIONS: Current Outpatient Medications Medication Instructions Lactulose 10 GM/15ML Solution oral solution 30 mL, Oral, 2 TIMES DAILY Ondansetron (ZOFRAN) 4 mg, Oral, EVERY 12 HOURS OXYCODONE-ACETAMINOPHEN PO 5 capsules, Oral, DAILY PROMETHAZINE-CODEINE PO Oral, 5 to 10 ml q6hr Spironolactone (ALDACTONE) 300 mg, Oral, DAILY Torsemide 20 MG tablet Take 40 mg in the AM and 20 mg in the PM Current Outpatient Medications: Lactulose 10 GM/15ML Solution oral solution, Take 30 mL by mouth 2 times daily., Disp: , Rfl: Ondansetron 4 MG tablet, Take 1 tablet by mouth every 12 hours., Disp: , Rfl: Spironolactone 100 MG tablet, Take 3 tablets by mouth daily., Disp: 90 tablet, Rfl: 3 Torsemide 20 MG tablet, Take 40 mg in the AM and 20 mg in the PM, Disp: 90 tablet, Rfl: 2 OXYCODONE-ACETAMINOPHEN PO, Take 5 capsules by mouth daily., Disp: , Rfl: PROMETHAZINE-CODEINE PO, Take by mouth. 5 to 10 ml q6hr, Disp: , Rfl: ALLERGIES: No Known Allergies FOCUSED REVIEW OF SYSTEMS: Positive for abdominal fullness (ascites), cough, reflux from time to time VITAL SIGNS: Vitals: 02/04/24 1538 02/04/24 1539 BP: 115/59 Pulse: 104 Resp: 24 SpO2: 99% Height: 1.549 m (5' 1 ) PREPROCEDURE PHYSICAL EXAM: AIRWAY: normal, Mallampati: Class II (complete visualization of the uvula) CARDIO: warm, well-perfused. Regular rate and rhythm. PULMONARY: normal work of breathing, non-labored, no audible wheezing ABDOMEN: Soft, nontender, distended w/ fluid wave ASSESSMENT: Madhavi Avalos is a 64 y.o. female is ready for the planned procedure. ASA Class: ASA 3 - Patient with moderate systemic disease with functional limitations PLAN: Will plan to proceed with DIAGNOSTIC UPPER ENDOSCOPY using Monitored Anesthesia Care today. For post-procedure recommendations including diet and medication changes, please see the separate procedure note. Matteo Martinez MD [facility] 02-04-2024 History and physical note ENDOSCOPIC PREPROCEDURE HISTORY AND PHYSICAL HISTORY OF PRESENT ILLNESS: Madhavi Avalos is a 64 y.o. female seen in the preoprocedure area at [facility] ENDOSCOPY. The indication for endoscopic evaluation includes: 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 Reports prior band ligation about 1yr previously. Last PLT 119, INR 1.6 PAST MEDICAL HISTORY: Past Medical History: Diagnosis Date Abdominal wall hernia Liver disease H[place]ISON cirrhosis Obesity TB (tuberculosis) 01/2023 Completed treated for 3 months SURGICAL HISTORY: Past Surgical History: Procedure Laterality Date INSERTION SHUNT TRANSVENOUS INTRAHEPATIC PORTOSYSTEMIC PERCUTANEOUS (TIPS) N/A 08/29/2023 Laterality: N/A; Surgeon: Amber Clemons MD; Location: [facility] INTERVENTIONAL RADIOLOGY (VIR) PARACENTESIS ABDOMINAL W/ IMAGING GUIDANCE N/A 08/29/2023 Laterality: N/A; Surgeon: Amber Clemons MD; Location: [facility] INTERVENTIONAL RADIOLOGY (VIR) ESOPHAGOSCOPY W/ LIGATION BAND ESOPHAGEAL VARICES 10/2022 CHOLECYSTECTOMY 2021 MEDICATIONS: Current Outpatient Medications Medication Instructions Lactulose 10 GM/15ML Solution oral solution 30 mL, Oral, 2 TIMES DAILY Ondansetron (ZOFRAN) 4 mg, Oral, EVERY 12 HOURS OXYCODONE-ACETAMINOPHEN PO 5 capsules, Oral, DAILY PROMETHAZINE-CODEINE PO Oral, 5 to 10 ml q6hr Spironolactone (ALDACTONE) 300 mg, Oral, DAILY Torsemide 20 MG tablet Take 40 mg in the AM and 20 mg in the PM Current Outpatient Medications: Lactulose 10 GM/15ML Solution oral solution, Take 30 mL by mouth 2 times daily., Disp: , Rfl: Ondansetron 4 MG tablet, Take 1 tablet by mouth every 12 hours., Disp: , Rfl: Spironolactone 100 MG tablet, Take 3 tablets by mouth daily., Disp: 90 tablet, Rfl: 3 Torsemide 20 MG tablet, Take 40 mg in the AM and 20 mg in the PM, Disp: 90 tablet, Rfl: 2 OXYCODONE-ACETAMINOPHEN PO, Take 5 capsules by mouth daily., Disp: , Rfl: PROMETHAZINE-CODEINE PO, Take by mouth. 5 to 10 ml q6hr, Disp: , Rfl: ALLERGIES: No Known Allergies FOCUSED REVIEW OF SYSTEMS: Positive for abdominal fullness (ascites), cough, reflux from time to time VITAL SIGNS: Vitals: 02/04/24 1538 02/04/24 1539 BP: 115/59 Pulse: 104 Resp: 24 SpO2: 99% Height: 1.549 m (5' 1 ) PREPROCEDURE PHYSICAL EXAM: AIRWAY: normal, Mallampati: Class II (complete visualization of the uvula) CARDIO: warm, well-perfused. Regular rate and rhythm. PULMONARY: normal work of breathing, non-labored, no audible wheezing ABDOMEN: Soft, nontender, distended w/ fluid wave ASSESSMENT: Madhavi Avalos is a 64 y.o. female is ready for the planned procedure. ASA Class: ASA 3 - Patient with moderate systemic disease with functional limitations PLAN: Will plan to proceed with DIAGNOSTIC UPPER ENDOSCOPY using Monitored Anesthesia Care today. For post-procedure recommendations including diet and medication changes, please see the separate procedure note. Matteo Martinez MD documented in this encounter [facility] 02-04-2024 Nurse Note PT Given discharge paperwork and reviewed per MD and nurse. Platen Builder Up at bedside. Diet and restrictions reviewed as well. Venous access removed no complications noted. Ok to d/c Anesthesia and procedural . documented in this encounter [facility] 02-04-2024 Nurse Surgical operation note PT Given discharge paperwork and reviewed per MD and nurse. Platen Builder Up at bedside. Diet and restrictions reviewed as well. Venous access removed no complications noted. Ok to d/c Anesthesia and procedural . [facility] History of Presen t illness Narrative Images from the original note were not included. Division of Gastroenterology, Hepatology and Nutrition HEP OP NOTE: HEPATOLOGY OUTPATIENT NOTE PRIMARY CARE PHYSICIAN: Darlene Garibay HEPATOLOGY/GI DIAGNOSIS: 1. Decompensated cirrhosis from [facility]-MELD 3.0 of -09/2023 2. Reccurent Ascites with weekly paracentesis [...] REASON FOR VISIT: Liver cirrhosis secondary to [facility] follow up HISTORY OF PRESENT ILLNESS: Madhavi Avalos is a 63 y.o. [place] female with decompensated [facility] cirrhosis with refractory ascites, HH, EV [...] on aldactone 300 mg daily . DANIEL Bishnu increased this to 40/20 on her LILI [...] ASSESSMENT/PLAN: Madhavi Avalos is a 63 y.o. [place] female with decompensated [place] cirrhosis with ascites, EV bleeding, OHE, obesity, DM borderlinewho comes to the clinic today for a follow up and for further management.LILI with me 04/2023.Saw MEDIA ARTS PROFESSOR Bishnu 09/2023 pts cell [phone] 1. Decompensated cirrhosis: - Etiology: MASH - [...] Return to clinic in 3 months with MEDIA ARTS PROFESSOR and me in 6 months Randal NEAL Wrap Checker in Clinical Medicine Department of Internal medicine Pager:[phone] MELD 3.0: 18 at 01/02/2024 11:10 AM [...] Patient verified name and date of Using freight trucker ID: [id number] documented in this encounter [facility] 01-02-2024 Instructions Randal Vital MD - 01/02/2024 10:30 AM EST - Ask Dr Estrada for [facility] referral documented in this encounter [facility] 10-16-2023 History of Presen t illness Narrative CLINICAL CARE TEAM: -Referring Provider for today's consult: Darlene Garibay MD -Primary Care Provider: Darlene Garibay HISTORY OF PRESENT ILLNESS: Madhavi Avalos is a 63 y.o. female who presents to the [facility] today for follow-up. I have reviewed her medical, surgical, and social history and have updated medication and allergy information in the computerized patient record. Madhavi Avalos has a history of decompensated [facility] cirrhosis c/b refractory ascites despite diuretics [...] (TIPS) N/A 08/29/2023 Laterality: N/A; Surgeon: Amber Clemons MD; Location: [facility] INTERVENTIONAL RADIOLOGY (VIR) PARACENTESIS ABDOMINAL W/ IMAGING GUIDANCE N/A 08/29/2023 Laterality: N/A; Surgeon: Amber Clemons MD; Location: [facility] INTERVENTIONAL RADIOLOGY (VIR) ESOPHAGOSCOPY W/ LIGATION [...] diuretic refractory ascites requiring weekly paracentesis. Plan [facility] Cirrhosis: MELD 3.0 16 from previous [...] Division of Gastroenterology, Hepatology, & Nutrition [facility] This nurse used freight trucker [id number]. This nurse verified pts name and . documented in this [facility] History of Presen t illness Narrative Images from the original note were not included. [facility] Note: Bedside Delivery Documentation The following prescription(s) were delivered to the patient's bedside. Michelet Wright [facility] ([place]) [phone] [facility] [phone] [facility] Bedside Delivery [phone] [facility] [phone] [facility] Bedside Delivery [phone] [facility] [phone] [facility] Bedside Delivery [phone] [place] [phone] [place] [phone] Images from the original note were not included. [facility] Note: Non-Verbal Med Rec [facility] received the following discharge prescription(s): Total cost is $0.00. I have reviewed the Discharge Rx Reconciliation Report. The discharge prescription(s) will be delivered to the patient on 08/30/2023. [facility] ([place] [phone] [facility] [phone] [facility] Bedside Delivery [phone] [facility] [phone] [facility] Bedside Delivery [phone] [facility] [phone] [facility] Bedside Delivery [phone] [place] [phone] [place] [phone] Final Discharge Planning and Transportation Final Discharge [...] contacted related to barriers Nadira Mauricio RN, FINANCIAL INVESTIGATOR-S, ACM R 9 E Clinical Grocery Clerk Selling Telephone # available in Treatment team. Also available via Secure Chat. Acute Physical Therapy Evaluation Prior to Admission [facility] score(s): PRIOR LEVEL AM-PAC Mobility Raw [...] agreeable to PT treatment with RN approval. Moroccan speaking- daughter present and assists with translation [...] intact Mobility Assessment: Supine to Sit Mobility [place] Level: Supine->Sit: modified arcade Bed Features/Set-up: Supine->Sit: Head of bed elevated Skilled Rationale: Verbal cues, Initiation and execution of task Sit to Supine Mobility [place] Level: Sit->Supine: modified arcade Bed Features/Set-up: Sit->Supine: Head of bed elevated, [...] device Transfer Assessment: Sit to Stand Transfer [place] Level: Sit->Stand: stand-by assist Assistive Device: Sit->Stand: gait belt Skilled Rationale: Verbal cues, Initiation and execution of task Skilled Intervention/Details: Sit->Stand: X1 EOB Stand to Sit Transfer [place] Level: Stand->Sit: stand-by assist Assistive Device: Stand->Sit: gait belt Skilled Rationale: Sequencing, Hand placement, Verbal cues, Controlled descent for sitting Gait/Functional Mobility: Gait Assessment [place] Level: Gait: stand-by assist Assistive Device: Gait: [...] to optimize gait mechanics Stairs: Stairs Assessment [place] Level: Stair Negotiation: not tested Outcome Score(s): CURRENT [facility] Basic Mobility Inpatient Short Form Turning over in bed: 4 - No Assistance Sitting/standing from chair: 3 - A Little Assistance Moving from lying on back to sittin - No Assistance Moving to and from bed to chair: 3 - A Little Assistance Walk in hospital room: 3 - A Little Assistance Climbing 3-5 steps with a railin - A Little Assistance CURRENT [facility] Mobility Raw Score: 20 CURRENT [facility] Mobility Functional Limitation/Modifier: 35.83% Currently Impaired in [...] Edema: Mobility Assessment: Supine to Sit Mobility [place] Level: Supine->Sit: supervision Bed Features/Set-up: Supine->Sit: Head of bed elevated Sit to Supine Mobility [place] Level: Sit->Supine: supervision Bed Features/Set-up: Sit->Supine: Head of bed elevated Transfer Assessment: Sit to Stand Transfer [place] Level: Sit->Stand: stand-by assist Assistive Device: Sit->Stand: 2 wheeled walker Skilled Rationale: Cues for increased safety, Full extension to upright positioning/posture Stand to Sit Transfer [place] Level: Stand->Sit: stand-by assist Assistive Device: Stand->Sit: 2 wheeled walker Functional Mobility: Functional Mobility [place] Level: Functional Mobility/Gait: stand-by assist Assistive Device: Functional Mobility/Gait: 2 wheeled walker Functional Mobility Distance: Distance needed for common household mobility Functional Mobility Deficits: Activity tolerance, Balance, Generalized weakness, Slowed gait speed Functional Mobility Skilled Rationale: Cues for increased safety, Walker management/safety Skilled Intervention/Details - Functional Mobility/Gait: Min cueing for safety, navigation around environmental hazards Outcome Score(s): CURRENT [facility] Daily Activity Inpatient Short Form Putting on/Taking Off Lower Body Clothin - A Little Assistance Bathin - A Little Assistance Toiletin - A Little Assistance Putting on/Taking Off Upper Body Clothin - A Little Assistance Groomin - A Little Assistance Eatin - No Assistance CURRENT [facility] Activity Raw Score: 19 CURRENT [facility] Activity Functional Limitation/Modifier: 42.80% Currently Impaired in Daily Activity - CK Interventions: Assessment & Plan: Patient was admitted for MASH cirrhosis and seen for therapy evaluation related [...] (problem-focused assessments w/limited treatment options) Time In: 08 Time Out: 0840 Total Visit Time: 18 [...] Carvalho, OTR/L Time In: 08 Time Out: 08 Total Visit Time: 0 minutes Total Treatment Time (skilled, billable minutes): 0 minutes Physical Therapy Attempt Note 08/29/2023 PT Therapy Completed: Attempted Attempted Reason: Patient is unavailable due to test/procedure (TIPS) Nirmala Mazariegos PT Time In: 0804 Time Out: 0804 Total Visit Time: 0 minutes Total Treatment Time (skilled, billable minutes): 0 minutes Internal Medicine Daily Progress Note Patient: Madhavi Avalos, 1960, [id number] Physician: Tk Contreras MD, Hepatology Service Assessment/Plan: Madhavi Avalos is a 63 y.o. female with a history of decompensated [facility] c/b refractory ascites despite diuretics and weekly paracentesis, EV s/p EBL. Admitted for a planned TIPS on 08/29/2023. [facility] Cirrhosis S/p attempted TIPS procedure MELD 3.0: [...] to discuss her case with the attending shot hole driller, what the next steps would be, and to answer any questions they may have. The patient denies any chest pain, shortness for breath, nausea, vomiting, diarrhea, fever, chills, or abdominal pain. Objective: Vitals: 08/29/231849 BP: 89/52 Pulse: 84 Resp: 16 Temp: 97.3 F (36.3 C) SpO2: 95% O2 Device: room air (08/29/231849) Flow (L/min): 0 (08/29/23 164) Gen: NAD, tired appearing after her procedure [...] is here for planned TIPS procedure. Qualified freight trucker was present as primary freight trucker to interpret during the following: admission. The primary freight trucker resource was qualified telephonic freight trucker: ID # [id number] Initial Discharge Planning Anticipated discharge disposition: Home [...] none Legal Next of Kin: Brent Stone [phone] 2. daughter Fara Neville [phone] Financial Resources Insurance: No Prescription Coverage: No [...] planning and care coordination. Nadira Mauricio RN, FINANCIAL INVESTIGATOR-S, ACM R 9 E Clinical Grocery Clerk Selling Telephone # available in Treatment team. Also available via Secure Chat. documented in this encounter [facility] 08-30-2023 Nurse Note Handout in Moroccan on cirrhosis/low salt diet given to patient and family prior to discharge today. Pt scheduled for hospital follow up with Annabel Goetz NP on 10/16/23. [facility] 08-30-2023 Miscellaneous Notes Handout in Moroccan on cirrhosis/low salt diet given to patient [...] to home. Madhavi Avalos was admitted to [facility] from home. The patient reported all [...] the car documented in this encounter [facility] 08-30-2023 Hospital Discharg e instructions Tk [...] note that you should obtain refills from [employer] using [employer] coupons to get these medications at a [...] Care Everywhere.Torsemide Oral Tablet (TORSEMIDE - ORAL) (Moroccan)documented in this encounter [facility] 08-30-2023 Hospital course [...] during her recent hospital stay at [facility]. As you may know, Madhavi Avalos [...] Tk Contreras MD Dictated under attending physician Tayler att. providers found Division of Hospital Medicine p: [phone] f: [phone] CONSULTS DURING ADMISSION: IP CONSULT TO PHYSICAL THERAPY IP CONSULT TO OCCUPATIONAL THERAPY IP CONSULT TO PHARMACY MEDICATION ASSISTANCE IP CONSULT TO PHARMACY BEDSIDE DISCHARGE MED DELIVERY IMAGING / PROCEDURES / RESULTS: PERCUTANEOUS TRANSHEPATIC PORTAL VEIN-IP ONLY ABDOMINAL PARACENTESIS Should you require further information or copies of results or reports please contact Medical Information Management @ [phone] LABS AT TIME OF DISCHARGE: Lab Results [...] the patient was directed to go to [facility] for discounted medications PATIENT'S MEDICAL HOME AT DISCHARGE: Darlene Garibay [address] [facility] [address] MEDICATIONS: Medication List for when you [...] Dept Phone 09/11/2023 1:00 PM Ken Garcia [facility] Peri Arrive at: Arrive to Outpatient Surgery Center Registration [phone] 10/16/2023 11:30 AM Annabel Goetz [facility] [place] Arrive at: Arrive to 1st Floor Registration [phone] 01/02/2024 10:30 AM Randal Vital [facility]patient [facility] [place] Arrive at: Arrive to 1st Floor Registration [phone] Associated attestation - Seth Hines MD, MPH [...] home and will follow-up with her primary shot hole driller regarding next steps. Diuretics adjusted as follows: Lasix discontinued and started on torsemide 20mg bid. Home Aldactone continued. Midodrine increased to 15mg tid from 10mg tid to assist with hypotension. MELD 3.0 16. documented in this encounter [facility] 08-30-2023 Plan of [...] ROM, necessary for functional mobility. Outcome: Ongoing [facility] 08-30-2023 Plan of care note Problem: OT [...] ability to safely complete toileting. Outcome: Ongoing [facility] 08-30-2023 Plan of care note Problem: Patient [...] active listening utilized verbalization of feelings encouraged [facility] 08-29-2023 Plan of care note Problem: Patient [...] Acute/Chronic (Adult) CPG). Outcome: Progressing Toward Goal [facility] 08-29-2023 Note Amber Clemons MD 3:32 PM VASCULAR INTERVENTIONAL RADIOLOGY PROCEDURE [...] PGY-6 Toma Trent DO 08/29/2023 1:28 PM PIPE LINE MAINTENANCE SUPERVISOR(S): Amber Clemons MD (Attending); Toma Trent DO (Resident) CONSENT: Informed consent was obtained prior to the procedure after discussion of the risks, benefits, and alternatives of the procedure, and expected procedure outcomes were discussed with the patient and/or customer account representative. The consent document was placed in chart. DID THIS PROCEDURE REQUIRE A UNIVERSAL PROTOCOL?: Yes. [place] Protocol is required. Preprocedure verification is complete. [...] Radiology to participate in this patient's care. [facility] 08-29-2023 Nurse Note Interventional Radiology TIPSS procedure [...] of clear yellow ascites removed during paracentesis. [facility] 08-28-2023 Plan of care note Problem: Patient Care Overview Goal: Plan of Care Review Outcome: Ongoing Goal: Individualization & Mutuality Outcome: Ongoing Goal: Discharge Needs Assessment Outcome: Ongoing Goal: Interdisciplinary Rounds/Family Conf Outcome: Ongoing [facility] 08-28-2023 Progress note Formatting of t his note might be different from the original. I certify that this patient requires inpatient services at this time. I anticipate the expected length of stay will include at least two midnights. Inpatient services are due to the following medical concerns TIPS. Plans for post hospitalization care will be discharge to home. [facility] 08-28-2023 History and physical note Internal Medicine Admission History & Physical Patient: Madhavi Avalos, 1960, [id number] Physician: Tk Contreras MD, PGY1, Hepatology Service Date of face to face patient encounter: 08/28/2023. Chief Complaint: Planned Admission for TIPS History Of Present Illness: Madhavi Avalos is a 63 y.o. female with a history of decompensated [facility] cirrhosis c/b refractory ascites despite diuretics [...] chills, cough, melena, hematochezia, or hematemesis. Primary Exterior Interior Specialist Dr. Vital Etiology of Liver Disease [facility] cirrhosis MELD MELD 3.0: 14 at [...] erythema Skin: No jaundice or rash Neuro: manager strategic development 3-7, 9-11 intact and equal. Strength grossly equal in muscle groups of the bilateral UEs and LEs. Psych: Appropriate affect and cognition Data Review: WBC/Hgb/Hct/Plts: 4.67/12.7/39.1/118 (08/28 122) Na/K+/Phos/Mg/Ca: 138/5.0/2.9/1.9/8.1 (08/28 1225) Bun/Creat/Cl/CO2/Glucose: 18/0.63/106/25/91 (08/28 1225) Ptt/Pt/Inr: 40.6/17.3/1.4 (08/28 1225) Impression/Plan: Madhavi Avalos is a 63 y.o. female with a history of decompensated [facility] cirrhosis c/b refractory ascites despite diuretics and weekly paracentesis, EV s/p EBL. Admitted for a planned TIPS on 08/29/2023. [facility] Cirrhosis MELD 3.0: 14 at 08/28/2023 12:25 [...] Ms. Avalos has a history of decompensated [facility] cirrhosis with refractory ascites admitted for planned TIPS. CT abdomen and ECHO findings reviewed; of note RSVP was unable to be estimated on ECHO. TIPS planned for 08/29/23. MELD 3.0 14. [facility] 08-28-2023 History and physical note Internal Medicine Admission History & Physical Patient: Madhavi Avalos, 1960, [id number] Physician: Tk Contreras MD, PGY1, Hepatology Service Date of face to face patient encounter: 08/28/2023. Chief Complaint: Planned Admission for TIPS History Of Present Illness: Madhavi Avalos is a 63 y.o. female with a history of decompensated [facility] cirrhosis c/b refractory ascites despite diuretics [...] chills, cough, melena, hematochezia, or hematemesis. Primary Exterior Interior Specialist Dr. Vital Etiology of Liver Disease [facility] cirrhosis MELD MELD 3.0: 14 at [...] erythema Skin: No jaundice or rash Neuro: manager strategic development 3-7, 9-11 intact and equal. Strength grossly equal in muscle groups of the bilateral UEs and LEs. Psych: Appropriate affect and cognition Data Review: WBC/Hgb/Hct/Plts: 4.67/12.7/39.1/118 (08/28 1225) Na/K+/Phos/Mg/Ca: 138/5.0/2.9/1.9/8.1 (08/28 1225) Bun/Creat/Cl/CO2/Glucose: 18/0.63/106/25/91 (08/28 1225) Ptt/Pt/Inr: 40.6/17.3/1.4 (08/28 1225) Impression/Plan: Madhavi Avalos is a 63 y.o. female with a history of decompensated [facility] cirrhosis c/b refractory ascites despite diuretics and weekly paracentesis, EV s/p EBL. Admitted for a planned TIPS on 08/29/2023. [facility] Cirrhosis MELD 3.0: 14 at 08/28/2023 12:25 [...] MELD 3.0 14. documented in this encounter [facility] 08-28-2023 Nurse Note Madhavi Avalos was admitted to [facility] from home. The patient reported all [...] Dr. Contreras notified of the patient's arrival. [facility] 08-28-2023 Nurse Note Patient arrived from home with family member. Dr. Contreras notified of arrival. [facility] 08-28-2023 Progress note Formatting of t his note might be different from the original. 08/28/2023 Notified room Ready @ 11:16 AM spoke to pt, will arrive to admitting @ now, pt is parking the car [facility] 08-27-2023 History of Presen t illness Narrative [...] Adequate hemostasis achieved. documented in this encounter [facility] 08-27-2023 History of Presen t illness Narrative CLINICAL CARE TEAM: -Referring Provider for today's consult: Self, Self -Primary Care Provider: Darlene Garibay HISTORY OF PRESENT ILLNESS: Madhavi Avalos is a 63 y.o. female who presents to the [facility] today for follow-up. I have reviewed her medical, surgical, and social history and have updated medication and allergy information in the computerized patient record. Madhavi Avalos has a history of decompensated [facility] cirrhosis c/b refractory ascites despite diuretics [...] y.o. female with a history of decompensated [facility] cirrhosis c/b refractory ascites despite diuretics and weekly paracentesis, EV s/p EBL. She will be admitted tomorrow for planned TIPS on 08/29 Plan [facility] Cirrhosis: MELD 3.0 14 from previous [...] the care of Madhavi Avalos. Annabel Goetz APRN-[facility] Hepatology Nurse Practitioner Division of Gastroenterology, Hepatology, & Nutrition [facility] This nurse verified pts name and . [facility] History of Presen t illness Narrative Met with patient(only speaks Moroccan) and daughter (declined freight trucker for me but freight trucker phone available and used for ADRIANO and Doctor) in IR clinic today to discuss TIPS, reviewed patient medication list, allergies, and day of instructions for procedure. Pt gets weekly paracentesis at [place] for last year. She was drained yesterday for 6.4 liters. Handouts given Patient verbalized understanding of all covered information. Patient will be scheduled for procedure with IR data sme. Pt sent to get labs and will need ECHO before procedure. documented in this encounter [facility] 08-10-2023 Instructions Haile Hammond - 08/10/2023 8:40 AM EDT INFORMATION REGARDING YOUR INTERVENTIONAL RADIOLOGY APPOINTMENT FOR PROCEDURE: Transjugular Intrahepatic Portosystemic Shunt (TIPS) with Dr Clemons DATE: 08/29/23. ARRIVAL TIME: 1:00pm on 08/28/23. CHECK IN: Admitting Office, [address] [place] [address], at the [facility] at the [facility], [address] [place] [address]. It is important to arrive on time [...] your appointment, please call our office at [phone] opt 1 at least 24 hours in [...] in the hospital garages in the [facility] Garage [address] [place] [address] or Crew Garage. Press Set Up parking is available for $10 (tiwari only) at the main entrance of the [facility] and [facility]. Plan on being here approximately 3-5 [...] Radiology procedure. documented in this encounter [facility] 05-23-2023 History of Presen t illness [...] with h/o hematemesis X1. Last one done .? 4. H/o OHE last year X1 on [...] MPV 02/13/2023 Comment: Not measured LABS @RESUFAST(WBC,HGB,HCT,MCV,PLT)@ @RESUFAST(GLUCOSE,CALCIUM,NA,K,C O2,CL,BUN,CREATNINE)@ @RESUFAST(INR:3,PROTIME:3)@ @RESUFAST(ALT,AST,GGT,ALKPHOS,BI LITOT)@ @RESUFAST(TACROLIMUS)@ None recently available Outside hospital labs [...] ASSESSMENT/PLAN: Madhavi Avalos is a 62 y.o. [place] female with what appears to be decompensated HARRISON cirrhosis, who comes to the clinic today for a LT evaluation and for further management pts cell [phone] 1. Decompensated cirrhosis: - Etiology: NAFLD/HARRISON - [...] to clinic in 3 months Randal NEAL Wrap Checker in Clinical Medicine Department of Internal medicine Pager:[phone] This nurse used freight trucker [phone]. This nurse verified pts name and . [...] a wait list. documented in this encounter [facility] 05-23-2023 Instructions Randal Vital MD - 05/23/2023 [...] resistance training documented in this encounter [facility] 11-07-2022 History of Presen t illness Narrative Images from the original note were not included. Division of Gastroenterology, Hepatology and Nutrition HEP OP NOTE: HEPATOLOGY OUTPATIENT NOTE PRIMARY CARE PHYSICIAN: No primary care provider on file. REFERRING PROVIDER: Terry Estrada DO [address] [place] [address] HEPATOLOGY/GI DIAGNOSIS: 1. Decompensated cirrhosis from HARRISON- [...] ILLNESS: Madhavi Avalos is a 62 y.o. [facility] female with what appears to [...] ASSESSMENT/PLAN: Madhavi Avalos is a 62 y.o. [facility] female with what appears to [...] Return to clinic in 3 Randal NEAL Wrap Checker in Clinical Medicine Department of Internal medicine Pager:[phone] This HY[employer]OCHLORIC MANUFACTURING SUPERVISOR verified patient's name and through heavy mobile equipment repairer #[id number]. documented in this encounter [facility] 11-07-2022 Instructions Randal Vital MD - 11/07/2022 [...] or resistance training documented in this encounter [facility] Evaluation note Diagnosis Decompensated hepatic cirrhosis- Primary Non-alcoholic fatty liver disease Other chronic nonalcoholic liver disease [facility] [place] Diagnosis Decompensated hepatic cirrhosis [facility] [place] [facility] Diagnosis Decompensated hepatic cirrhosis- Primary [facility] [place] [facility] Diagnosis Other ascites [facility] [place] [facility] Diagnosis Other ascites- Primary Other cirrhosis of liver Other ascites Other cirrhosis of liver Other ascites Other cirrhosis of liver [facility] [place] [facility] Diagnosis Other ascites Other cirrhosis of liver Decompensated hepatic cirrhosis- Primary Other ascites Other cirrhosis of liver [facility] [place] [facility] Diagnosis Other ascites Other ascites Other cirrhosis of liver [facility] [place] [facility]* Diagnosis Other ascites Other cirrhosis of liver Decompensated hepatic cirrhosis 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 [facility] [place] [facility]* Diagnosis 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- Primary Other chronic nonalcoholic liver disease [facility] [place] [facility]* Diagnosis Obesity (BMI 30.0-34.9)- Primary Obesity, unspecified 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 [facility] [place] [facility]* Diagnosis 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- Primary Other chronic nonalcoholic liver disease Generalized abdominal pain Abdominal pain, generalized [facility] [place] [facility]* Diagnosis 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 (HCC)- Primary Other chronic nonalcoholic liver disease Refractory ascites Esophageal varices without bleeding, unspecified esophageal varices type (HCC) Class 1 drug-induced obesity with serious comorbidity and body mass index (BMI) of 30.0 to 30.9 in adult Hepatic encephalopathy (HCC) Hepatic encephalopathy documented in [facility] encounter [facility]* Diagnosis 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 (HCC)- Primary Other chronic nonalcoholic liver disease [facility] [place]* Diagnosis Cirrhosis of liver with ascites, unspecified hepatic cirrhosis type (HCC) (HCC)- Primary documented in this encounter [facility] note* Diagnosis Pre-op evaluation- Primary Preoperative examination, unspecified History of TB (tuberculosis) Personal history of tuberculosis History of esophageal varices Personal history of other diseases of digestive system Hypotension, unspecified hypotension type History of ascites Cirrhosis of liver with ascites, unspecified hepatic cirrhosis type (HCC) (HCC) * Assessment & Plan Note - Rosalee Valencia APRN.CNP - 08/11/2024 11:23 AM EDTAssociated Problem(s): History of ascites Followed by GI Dr. Robbins Received weekly paracentesis On spironolactone, torsemide and lactulose * Assessment & Plan Note - Rosalee Valencia APRN.CNP - 08/11/2024 10:52 AM EDTAssociated Problem(s): Hypotension Managed with midodrine BP this visit 99/53 Denies any SOB, dizziness, lightheadedness, palpitations, syncope and chest pain Followed by PCP * Assessment & Plan Note - Rosalee Valencia APRN.CNP - 08/10/2024 5:07 PM EDTAssociated Problem(s): History of esophageal varices Followed by GI G3EV s/p banding at [facility] Denies hemoptysis or bloody stools * Assessment & Plan Note - Rosalee Valencia APRN.CNP - 08/10/2024 4:39 PM EDTAssociated Problem(s): History of TB (tuberculosis) 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] [facility] Pre-op evaluation- Primary Preoperative examination, unspecified History of TB (tuberculosis) Personal history of tuberculosis History of esophageal varices Personal history of other diseases of digestive system Hypotension, unspecified hypotension type History of ascites Cirrhosis of liver with ascites, unspecified hepatic cirrhosis type (HCC) (HCC) Cirrhosis of liver with ascites, unspecified hepatic cirrhosis type (HCC) (HCC) documented in this encounter [facility] Discharge instructions* Attachments The following attachments cannot be sent through Care Everywhere. * [facility] SMOKING CESSATION LINKS [facility] Reason for Referral Specialty Diagnoses / Procedures Referred By Contac t Referred To Contact Echocardiography Diagnoses Decompensated hepatic cirrhosis Procedures ECHOCARDIOGRAM SD ECHO HEART XTHORACIC,COMPLETE W DOPPLER Randal Vital MD [address] [place], [place] [phone] Echocardiography [place] [address] [facility] 2nd [place] [address] Referral ID Status Reason Start Date Expiration Date Visits Re quested Visits Authorized [id number] Closed 02/13/2023 03/09/2024 1 1 Specialty Diagnoses / Procedures Referred By Contac t Referred To Contact Diagnoses Decompensated hepatic cirrhosis Procedures US ABDOMEN RUQ/LIVER/GB Randal Vital MD [address] [facility] [address] [place], [place] [address] Referral ID Status Reason Start Date Expiration Date V isits Requested Visits Authorized [id number] New Request 05/23/2023 06/16/2024 1 1 Specialty Diagnoses / Procedures Referred By Contac t Referred To Contact Diagnoses Decompensated hepatic cirrhosis Procedures INTERVENTIONAL UPPER ENDOSCOPY INTERVENTIONAL UPPER ENDOSCOPY SD ESOPHAGOGASTRODUODENOSCOPY TRANSORAL DIAGNOSTIC Randal Vital MD [address] [place] [address] Referral ID Status Reason Start Date Expiration Date V isits Requested Visits Authorized [id number] New Request 05/23/2023 06/16/2024 1 1 Specialty Diagnoses / Procedures Referred By Contac t Referred To Contact Diagnoses Other ascites Procedures CT ABDOMEN/PELVIS WITH CONTRAST CHG CT SCAN,ABDOMENT AND PELVIS,W CONTRAST Randal Vital MD [address] [place] [address] Referral ID Status Reason Start Date Expiration Date V isits Requested Visits Authorized [id number] New Request 06/20/2023 07/14/2024 1 1 Specialty Diagnoses / Procedures Referred By Contac t Referred To Contact Diagnoses Other ascites Other cirrhosis of liver Procedures CASE REQUEST DEPARTMENT USE ONLY INTERVENTIONAL RADIOLOGY Haile Pollock, TALKBACK HOST-SENIOR REPORT DEVELOPER [address] [place] [address] Referral ID Status Reason Start Date Expiration Date V isits Requested Visits Authorized [id number] New Request 08/10/2023 09/03/2024 1 1 Specialty Diagnoses / Procedures Referred By Contac t Referred To Contact Diagnoses Other ascites Procedures ECHOCARDIOGRAM SD ECHO HEART XTHORACIC,COMPLETE W DOPPLER Haile Pollock, TALKBACK HOST-SENIOR REPORT DEVELOPER [address] [place] [address] Referral ID Status Reason Start Date Expiration Date V isits Requested Visits Authorized [id number] New Request 08/10/2023 09/03/2024 1 1 Specialty Diagnoses / Procedures Referred By Contac t Referred To Contact Echocardiography Diagnoses Other ascites Procedures ECHOCARDIOGRAM SD ECHO HEART XTHORACIC,COMPLETE W DOPPLER Haile Pollock, TALKBACK HOST-SENIOR REPORT DEVELOPER [address] [place] [address] Echocardiography [place] [address] [place] [address] Referral ID Status Reason Start Date Expiration Date Visits Re quested Visits Authorized [id number] Closed 08/10/2023 09/03/2024 1 1 Specialty Diagnoses / Procedures Referred By Contac t Referred To Contact Procedures DVT/VTE RISK ASSESSMENT Seth Hines MD, MPH [address] [facility] 7th [place] [address] Referral ID Status Reason Start Date Expiration Date V isits Requested Visits Authorized [id number] New Request 08/28/2023 09/21/2024 1 1 Specialty Diagnoses / Procedures Referred By Contac t Referred To Contact Diagnoses 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 Procedures US ABDOMEN RUQ/LIVER/GB Annabel Goetz APRN-SENIOR REPORT DEVELOPER [address] [place] [phone] Referral ID Status Reason Start Date Expiration Date V isits Requested Visits Authorized [id number] New Request 10/16/2023 11/09/2024 1 1 Referral ID Status Reason Start Date Expiration Date V isits Requested Visits Authorized [id number] New Request 01/02/2024 01/26/2025 1 1 Specialty Diagnoses / Procedures Referred By Contac t Referred To Contact Diagnoses 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 Obesity (BMI 30.0-34.9) Procedures DIAGNOSTIC UPPER ENDOSCOPY SD EGD BAND LIGATION ESOPHGEAL/GASTRIC VARICES Matteo Martinez MD [address] [facility] [address] [place] [address] Referral ID Status Reason Start Date Expiration Date V isits Requested Visits Authorized [id number] New Request 02/04/2024 02/28/2025 1 1 Specialty Diagnoses / Procedures Referred By Contac t Referred To Contact Diagnoses 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 Procedures DIAGNOSTIC UPPER ENDOSCOPY SD ESOPHAGOGASTRODUODENOSCOPY TRANSORAL DIAGNOSTIC Ken Garcia MD [address] [place] [address] Referral ID Status Reason Start Date Expiration Date V isits Requested Visits Authorized [id number] New Request 09/11/2023 10/05/2024 1 1 Specialty Diagnoses / Procedures Referred By Contac t Referred To Contact Diagnoses 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 Generalized abdominal pain Procedures CT ABDOMEN/PELVIS WITH CONTRAST CHG CT ABDOMEN & PELVIS W/CONTRAST MATERIAL Annabel Goetz APRN-SENIOR REPORT DEVELOPER [address] [place] [phone] Referral ID Status Reason Start Date Expiration Date V isits Requested Visits Authorized [id number] New Request 04/14/2024 05/09/2025 1 1 Specialty Diagnoses / Procedures Referred By Contac t Referred To Contact Diagnoses Cirrhosis of liver with ascites, unspecified hepatic cirrhosis type (HCC) (HCC) Procedures REFER TO [facility] / [facility] - PREOPERATIVE OPTIMIZATION OFFICE/OUTPATIENT NEW HIGH MDM 60 MINUTES Sherri Martinez, JOSELYN.SENIOR REPORT DEVELOPER [address] [place] [address] Referral ID Status Reason Start Date Expiration Date Visits Requested Visits Authorized [id number] Authorized PCP Requested Referral 08/05/2024 08/05/2025 1 1 Specialty Diagnoses / Procedures Referred By Contac t Referred To Contact CT IMAGING Diagnoses Cirrhosis of liver with ascites, unspecified hepatic cirrhosis type (HCC) (HCC) Procedures CT ABD/PEL W IVCON CT ABD & PELVIS W/CONTRAST Sherri Martinez, JOSELYN.SENIOR REPORT DEVELOPER [address] [place] [address] [place] [address] Referral ID Status Reason Start Date Expiration Date Visits Requested Visits Authorized [id number] New Request Auto-Generat ed Referral 08/05/2024 09/04/2025 1 1 Referral ID Status Reason Start Date Expiration Date Visits Requested Visits Authorized [id number] Pending Review Auto-Generat ed Referral 08/05/2024 09/04/2025 1 1 Advance Directives Latest Code Status on File Code Status Date Activated Date Inactivated Comments Full Code 08/28/2023 4:50 PM Date Activated Date Inactivated Comments 08/28/2023 4:50 PM Summary Purpose Family History No Family History Records FoundNo Family History Records Found Additional Source Comments Reason for Visit (unrecogniz ed section and content) Reason Comments New Patient Patient brought ileana rds in from [facility] Specialty Diagnoses / Procedures Referred By Contac t Referred To Contact Gastroenterology Diagnoses 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 Friend, Terry, DO [address] [address] Referral ID Status Reason Start Date Expiration Date V isits Requested Visits Authorized [id number] New Request 03/17/2022 04/11/2023 1 1 Specialty Diagnoses / Procedures Referred By Contac t Referred To Contact Echocardiography Diagnoses Decompensated hepatic cirrhosis Procedures ECHOCARDIOGRAM SD ECHO HEART XTHORACIC,COMPLETE W DOPPLER ZahraaBrihur, MD [address] [place] [address] Echocardiography [place] [address] [facility] [address] [place] [address] Referral ID Status Reason Start Date Expiration Date Visits Re quested Visits Authorized [id number] Closed 02/13/2023 03/09/2024 1 1 Reason Comments Follow-up Specialty Diagnoses / Procedures Referred By Contac t Referred To Contact Diagnoses Other ascites Procedures CT ABDOMEN/PELVIS WITH CONTRAST CHG CT SCAN,ABDOMENT AND PELVIS,W CONTRAST Randal Vital MD [address] [place] [address] Referral ID Status Reason Start Date Expiration Date V isits Requested Visits Authorized [id number] New Request 06/20/2023 07/14/2024 1 1 Reason Comments Consult Specialty Diagnoses / Procedures Referred By Dorian t Referred To Contact Interventional Radiology Diagnoses Decompensated hepatic cirrhosis Randal Vital MD [address] [place] [address] Referral ID Status Reason Start Date Expiration Date V isits Requested Visits Authorized [id number] New Request 06/18/2023 07/12/2024 1 1 Reason Comments Follow-up Concerns with throat Specialty Diagnoses / Procedures Referred By Contac t Referred To Contact Echocardiography Diagnoses Other ascites Procedures ECHOCARDIOGRAM SD ECHO HEART XTHORACIC,COMPLETE W DOPPLER Haile Pollock, TALKBACK HOST-SENIOR REPORT DEVELOPER [address] [place] [address] Echocardiography [place] [address] [place] [address] Referral ID Status Reason Start Date Expiration Date Visits Re quested Visits Authorized [id number] Closed 08/10/2023 09/03/2024 1 1 Specialty Diagnoses / Procedures Referred By Contac t Referred To Contact Diagnoses Other ascites Other cirrhosis of liver Other ascites [R18.8] Other cirrhosis of liver [K74.69] Procedures SD INSERT TRANSVEN INTRAHEP PORTOSYS SHUNT SD ABDOM PARACENTESIS DX/THER W IMAGING GUIDANCE INSERTION SHUNT TRANSVENOUS INTRAHEPATIC PORTOSYSTEMIC PERCUTANEOUS (TIPS) PARACENTESIS ABDOMINAL W/ IMAGING GUIDANCE Seth Hines MD, MPH [address] [facility] 7th [place] [address] [facility] [address] [place] [address] Referral ID Status Reason Start Date Expiration Date Visits Re quested Visits Authorized [id number] 1 1 Reason Comments Post-Discharge Follow Up Reason Comments Follow-up Pt states no appetit victor m Dizziness Pt states she fell t wice previosuly Specialty Diagnoses / Procedures Referred By Dorian t Referred To Contact Diagnoses 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 Procedures DIAGNOSTIC UPPER ENDOSCOPY SD ESOPHAGOGASTRODUODENOSCOPY TRANSORAL DIAGNOSTIC Kne Garcia MD [address] [place] [address] Referral ID Status Reason Start Date Expiration Date V isits Requested Visits Authorized [id number] New Request 09/11/2023 10/05/2024 1 1 Reason Comments Follow-up Liver cirrhosis seco ndary to HARRISON Reason Comments Appointment Reason Comments New Patient Reason Comments Patient Update Needs TIPS evaluatio n Reason Comments Consult TIPS consult Specialty Diagnoses / Procedures Referred By Contact Referred To Contact Anesthesiology / ANESTHESIOLOGY Diagnoses PACC PER SHERRI Benítez Procedures COMPLETE PACC Awa Reilly MD [address] [place] [address] 1, Pacc [facility] [address] [place] [address] Referral ID Status Reason Start Date Expiration Date V isits Requested Visits Authorized [id number] New Request 08/06/2024 11/04/2024 [address] Specialty Diagnoses / Procedures Referred By Dorian t Referred To Contact CT IMAGING Diagnoses Cirrhosis of liver with ascites, unspecified hepatic cirrhosis type (HCC) (HCC) Procedures CT ABD/PEL W IVCON CT ABD & PELVIS W/CONTRAST Sherri Martinez, TALKBACK HOST.SENIOR REPORT DEVELOPER [address] [place] [address] [facility] [place] [address] Referral ID Status Reason Start Date Expiration Date Visits Requested Visits Authorized [id number] Pending Review Auto-Generat ed Referral 08/05/2024 09/04/2025 1 1 Care Teams (unrecognized sec tion and content) City Detective Relationship Specialty Start Date End Date Darlene Garibay MD [address] [place] [phone] PCP - General Family Medicine 05/23/23 City Detective Relationship Specialty Start Date End Date Darlene Garibay MD [address] [place] [phone] PCP - General Family Medicine 05/23/23 City Detective Relationship Specialty Start Date End Date Darlene Garibay MD [address] [place] [phone] PCP - General Family Medicine 05/23/23 City Detective Relationship Specialty Start Date End Date Darlene Garibay MD [address] [place] [phone] PCP - General Family Medicine 05/23/23 City Detective Relationship Specialty Start Date End Date Darlene Garibay MD [address] [place] [phone] PCP - General Family Medicine 05/23/23 City Detective Relationship Specialty Start Date End Date Darlene Garibay MD [address] [place] [phone] PCP - General Family Medicine 05/23/23 City Detective Relationship Specialty Start Date End Date Darlene Garibay MD [address] [place] [phone] PCP - General Family Medicine 05/23/23 City Detective Relationship Specialty Start Date End Date Darlene Garibay MD [address] [place], [place] [address] PCP - General Family Medicine 05/14/24 Terry Estrada DO [address] [place], [place] [address] Referring Gastroenterology 02/29/24 City Detective Relationship Specialty Start Date End Date Darlene Garibay MD [address] [place] [address] PCP - General Family Medicine 05/14/24 Terry Estrada DO [address] [place], [place] [address] Referring Gastroenterology 02/29/24 City Detective Relationship Specialty Start Date End Date Darlene Garibay MD [address] [place], [place] [address] PCP - General Family Medicine 05/14/24 Terry Estrada DO [address] [place], [place] [id number] Referring Gastroenterology 02/29/24 City Detective Relationship Specialty Start Date End Date Darlene Garibay MD [address] [place] [place], [place] [id number] PCP - General Family Medicine 05/14/24 Terry Estrada DO [address] [place] [address] Referring Gastroenterology 02/29/24 City Detective Relationship Specialty Start Date End Date Darlene Garibay MD [address] [place] [address] PCP - General Family Medicine 05/14/24 Terry Estrada DO [address] [place] [address] Referring Gastroenterology 02/29/24 City Detective Relationship Specialty Start Date End Date Darlene Garibay MD [address] [place] [address] PCP - General Family Medicine 05/14/24 Terry Estrada DO [address] [place], [place] [address] Referring Gastroenterology 02/29/24 City Detective Relationship Specialty Start Date End Date Darlene Garibay MD [address] [place] [place], [place] [address] PCP - General Family Medicine 05/14/24 Terry Estrada DO [address] [place], [place] [id number] Referring Gastroenterology 02/29/24 City Detective Relationship Specialty Start Date End Date Darlene Garibay MD [address] [place] [address] PCP - General Family Medicine 05/14/24 FriendTerry DO [address] [place], [place] [id number] Referring Gastroenterology 02/29/24 Scheduled Active and Recently Administ ered Medications (unrecognized section and content) Medication Order 08/28/2023 08/29/2023 08/30/2023 albumin human 25 % injection 50 g (COMPLETED) 50 g, Intravenous, Administer over 120 Minutes, ONCE, 1 dose, On Sun08/29/23 at 2000, Dose 8 g / L of ascitic fluid removed. , Indications: Paracentesis 1950 ($$New Bag$$ - Provider: Toma Byers RN)2155 (Stopped - Provider: Toma Byers RN) Iohexol (OMNIPAQUE) 300 MG/ML vial 50 mL (COMPLETED) 50 mL, Intravenous, ONCE, 1 dose, On Sun08/29/23 at 0800, Extravasation Risk, Intra-op/Intra-Proc 0800 (Due)1303 (Given - Provider: Amber Clemons MD) Lactulose (CHRONULAC) oral solution 20 g 20 g, Oral, 2 TIMES DAILY, First dose on Sun08/28/23 at 1700, Until Discontinued 1601 (Given - Provider: Merle Linares RN) 0900 (Not Given - Provider: Gill Jaime RN - Reason: Patient not available)1724 (Given - Provider: Gill Jaime RN) 0847 (Given - Provider: Gill Jaime RN)1614 (Not Given - Provider: Gill Jaime RN - Reason: Contraindicated) Lidocaine 2 % injection 0-400 mg (COMPLETED) 0-400 mg (0-20 mL), Infiltration, ONCE, 1 dose, On Sun08/29/23 at 0800, Subcutaneous injection as numbing agent., Intra-op/Intra-Proc 0800 (Due)1303 (Given - Provider: Amber Clemons MD) midodrine (ProAmatine) tablet 10 mg (CANCELED) 10 mg, Oral, 3 TIMES DAILY, First dose on Sun08/28/23 at 1400, Until Discontinued, Hold for SBP greater than 140 1432 (Given - Provider: Merle Linares RN)2127 (Given - Provider: Tristen Ewing, SHEBA) 0900 (Not Given - Provider: Gill Jaime RN - Reason: Patient not available)1422 (Not Given - Provider: Gill Jaime RN - Reason: Patient not available)1516 (Given - Provider: Gill Jaime RN)2007 (Given - Provider: Toma Byers RN) 0847 (Given - Provider: Gill Jaime RN) midodrine (ProAmatine) tablet 15 mg 15 mg, Oral, 3 TIMES DAILY, First dose (after last modification) on Sun08/30/23 at 1400, Until Discontinued, Hold for SBP greater than 140 1455 (Given - Provid er: Gill Jaime RN) midodrine (ProAmatine) tablet 5 mg (COMPLETED) 5 mg, Oral, ONCE, 1 dose, On Sun08/30/23 at 0930 1019 (Given - Provid er: Gill Jaime RN) Torsemide (DEMADEX) tablet 20 mg 20 mg, Oral, 2 TIMES DAILY BEFORE MEALS, First dose on Sun08/30/23 at 0945, Until Discontinued, Max: 200 mg/day 1020 (Given - Provid er: Gill Jaime RN)1613 (Not Given - Provider: Gill Jaime RN - Reason: Contraindicated - Comment: pt to discharge as soon as pharmacy comes. its [place] two [address].) Continuous Medication Order 08/28/2023 08/29/2023 08/30/2023 albumin human 5 % injection 25 g 25 g, Intravenous, CONTINUOUS, Starting on Sun08/29/23 at 0700, Until Sun08/30/23 at 1842, Indications: Fluid Resuscitation, Intra-op/Intra-Proc 0946 (Given - Provider: Nitin Turpin APRN-SEPARATOR INSERTER) PRN Medication Order 08/28/2023 08/29/2023 08/30/2023 Acetaminophen [...] 3 g, Intravenous, Administer over 30 Minutes, DEFENSIVE SECONDARY COACH TO PROCEDURE, 1 dose, Starting on Sun08/29/23 at 0713, Until Sun08/29/23 at 2156, Surgical Prophylaxis, Initiate antibiotic administration 30-60 minutes prior to surgical incision and complete administration prior to surgical incision., Pre-op/Pre-Proc 0838 ($$New Bag$$ - Provider : Allan Turpin APRN-ALICIA)1039 (Bolus - Provider: DEE Britton)2156 (Stopped - Provider: Toma Byers RN - Comment: not running at shift change) guaiFENesin (ROBITUSSIN) oral solution 400 mg 400 mg, Oral, EVERY 6 HOURS NEEDED, Starting on Sun08/28/23 at 1141, Until Ashley 08/30/23 at 1842, Cough, Congestion Melatonin tablet 6 mg 6 mg, Oral, DAILY AT BEDTIME NEEDED, Starting on Sun08/28/23 at 1141, Until Ashley 08/30/23 at 1842, Insomnia Ondansetron (ZOFRAN) tablet 4 [...] INFORMATION SOURCE (unrecogn ized section and content) DATE CREATED AUTHOR 04/16/2024 [facility] DATE CREATED AUTHOR AUTHOR'S ORGANIZ ATION 08/13/2024 [facility] Source Comments (unrecognize d section and content) In the event this informatio n is protected by the Federal Confidentiality of Alcohol and Drug Abuse Patient Records regulations: The Federal rules restrict any use of the information to criminally investigate or prosecute any alcohol or drug abuse patient.[facility] the event this information is protected by the Federal Confidentiality of Alcohol and Drug Abuse Patient Records regulations: The Federal rules restrict any use of the information to criminally investigate or prosecute any alcohol or drug abuse patient.[facility] the event this information is protected by the Federal Confidentiality of Alcohol and Drug Abuse Patient Records regulations: The Federal rules restrict any use of the information to criminally investigate or prosecute any alcohol or drug abuse patient.[facility] the event this information is protected by the Federal Confidentiality of Alcohol and Drug Abuse Patient Records regulations: The Federal rules restrict any use of the information to criminally investigate or prosecute any alcohol or drug abuse patient.[facility] the event this information is protected by the Federal Confidentiality of Alcohol and Drug Abuse Patient Records regulations: The Federal rules restrict any use of the information to criminally investigate or prosecute any alcohol or drug abuse patient.[facility] the event this information is protected by the Federal Confidentiality of Alcohol and Drug Abuse Patient Records regulations: The Federal rules restrict any use of the information to criminally investigate or prosecute any alcohol or drug abuse patient.[facility] the event this information is protected by the Federal Confidentiality of Alcohol and Drug Abuse Patient Records regulations: The Federal rules restrict any use of the information to criminally investigate or prosecute any alcohol or drug abuse patient.[facility] the event this information is protected by the Federal Confidentiality of Alcohol and Drug Abuse Patient Records regulations: The Federal rules restrict any use of the information to criminally investigate or prosecute any alcohol or drug abuse patient.[facility] the event this information is protected by the Federal Confidentiality of Alcohol and Drug Abuse Patient Records regulations: The Federal rules restrict any use of the information to criminally investigate or prosecute any alcohol or drug abuse patient.[facility] FOR RECORDS PERTAINING TO PATIENTS WHO ARE [...] BE BASED ON THE PRIMARY CLINICAL RECORDS. [email or web address]. provides no warranty or guarantee of the accuracy or completeness of information in this document.
[2024-08-15 10:50] VITALS: BP 102/64; PULSE 103; RESP 16; O2SAT 99
[2024-08-15 11:05] VITALS: BP 101/57; PULSE 102; RESP 16; O2SAT 100
[2024-08-15 11:12] VITALS: BP 94/52; PULSE 100; RESP 16; O2SAT 100
--- NOTE | 2024-08-15 11:38 | PCM.OP.PRO ---
Procedure Report Date of Procedure: 08/15/24 Assessment & Plan Assessment/Plan (1) Abdominal ascites: QUALIFIERS: Ascites type: other type Qualified Code(s): R18.8 - Other ascites PLAN: PROCEDURE: Ultrasound guided paracentesis ORDERING PROVIDER: Dr. Estrada INDICATION: Female, 64 years old. Abdominal ascites. PROVIDER: VANCE Painting TECHNIQUE: The risks, benefits, and alternatives to the procedure were explained to the patient and daughter. The specific risks of bleeding, infection, and damage to bowel were detailed and accepted. Witnessed informed consent was obtained. The abdomen was ultrasonographically surveyed. An appropriate pocket of fluid was identified in the left upper quadrant. The skin was prepped with chlorhexidine and sterile field established. 2% lidocaine was used for local anesthetic. Using ultrasound guidance, the peritoneal cavity was accessed with a 5-Portuguese paracentesis needle/catheter system. The trocar was removed. A total of 6500 ml of clear yellow colored fluid was removed from the peritoneal cavity. The catheter was removed and a sterile dressing was applied. The procedure was well tolerated. IMPRESSION: Successful ultrasound guided paracentesis with left upper quadrant access site. Procedures Radiology Radiology US Procedures: [id number] Paracentesis
[2024-08-15] MEDS: Albumin Human 25% (100 mL) 25 GM/100 ML BAG IV (11:40)
[2024-08-15] MEDS: Albumin Human 25% (50 mL) 12.5 GM/50 ML IV.SOLN IV (13:05)
[2024-08-15 14:10] VITALS: BP 88/46; PULSE 92; RESP 16
== END | disposition home or self-care (01) ==
LOC: US 10:22
PROVIDERS: PCP Family Medicine; Referring Provider Internal Medicine Gastroenterology; Visit Provider Internal Medicine Gastroenterology
DX: R18.8 Other ascites (principal)
CPT/HCPCS: 96365; 96366; 49083; P9047

== ENCOUNTER → 2024-08-19 | Outpatient (CLI) | payer SELFPAY ==
[2024-08-19 10:44] VITALS: BP 92/55; PULSE 78; RESP 16; TEMP 36.7; O2SAT 99
[2024-08-19] MEDS: Lidocaine 2% (20 ml mdv) 20 ML Vial INFILT (10:45)
[2024-08-19 10:59] VITALS: BP 92/48; PULSE 75; RESP 16; O2SAT 97
[2024-08-19 11:13] VITALS: BP 98/55; PULSE 79; RESP 16; O2SAT 98
--- NOTE | 2024-08-19 15:37 | PCM.OP.PRO ---
Procedure Report Date of Procedure: 08/19/24 Assessment & Plan Assessment/Plan (1) Abdominal ascites: QUALIFIERS: Ascites type: other type Qualified Code(s): R18.8 - Other ascites PLAN: PROCEDURE: Ultrasound guided paracentesis ORDERING PROVIDER: Dr. Estrada INDICATION: Female, 64 years old. Abdominal ascites. PROVIDER: VANCE Painting TECHNIQUE: The risks, benefits, and alternatives to the procedure were explained to the patient and daughter. The specific risks of bleeding, infection, and damage to bowel were detailed and accepted. Witnessed informed consent was obtained. The abdomen was ultrasonographically surveyed. An appropriate pocket of fluid was identified in the right lower quadrant. The skin was prepped with chlorhexidine and sterile field established. 2% lidocaine was used for local anesthetic. Using ultrasound guidance, the peritoneal cavity was accessed with a 5-Indonesian paracentesis needle/catheter system. The trocar was removed. A total of 4950 ml of clear yellow colored fluid was removed from the peritoneal cavity. The catheter was removed and a sterile dressing was applied. The procedure was well tolerated. IMPRESSION: Successful ultrasound guided paracentesis with right lower quadrant access site. Procedures Radiology Radiology US Procedures: [id number] Paracentesis
== END | disposition home or self-care (01) ==
PROVIDERS: PCP Family Medicine; Referring Provider Internal Medicine Gastroenterology; Visit Provider Internal Medicine Gastroenterology
DX: R18.8 Other ascites (principal)
CPT/HCPCS: 49083

== ENCOUNTER → 2024-08-26 | Outpatient (CLI) | payer SELFPAY ==
[2024-08-26] VITALS (7 sets, daily range): BP systolic 83–97; BP diastolic 39–58; PULSE 73–86; RESP 16–18; TEMP 36.1–36.7; O2SAT 98–100; BMI 31.4
[2024-08-26] MEDS: Lidocaine 2% (20 ml mdv) 20 ML Vial INFILT (10:39)
[2024-08-26] MEDS: 0.9% Saline Lock 10 ML Syringe IV (11:20)
--- NOTE | 2024-08-26 11:22 | OP.PCM_ITS ---
Problems Associated Problem List Diagnoses (1) Abdominal ascites: Operative Report (Standard) Operative Information Surgery/Procedure Performed: Paracentesis Surgeon: Kamryn Daigle Date of Procedure: 08/26/24 Procedure Start Time: 10:30 Procedure Stop Time: 11:20 Pre-Operative Diagnosis: Abdominal ascites Post-Operative Diagnosis: Abdominal ascites Select all DRAINS/GRAFTS/IMPLANTS that apply: None Type of Anesthesia: Local Estimated Blood Loss: 0 Specimen collected: No Description of surgery: PROCEDURE: Ultrasound guided paracentesis ORDERING PROVIDER: Dr. Estrada INDICATION: Female, 64 years old. Abdominal ascites. PROVIDER: VANCE Painting TECHNIQUE: The risks, benefits, and alternatives to the procedure were explained to the patient. The specific risks of bleeding, infection, and damage to bowel were detailed and accepted. Witnessed informed consent was obtained. The abdomen was ultrasonographically surveyed. An appropriate pocket of fluid was identified in the right lower quadrant. The skin was prepped with chlorhexidine and sterile field established. 2% lidocaine was used for local anesthetic. Using ultrasound guidance, the peritoneal cavity was accessed with a 5-English paracentesis needle/catheter system. The trocar was removed. A total of 7650 ml of clear yellow colored fluid was removed from the peritoneal cavity. The catheter was removed and a sterile dressing was applied. The procedure was well tolerated. IMPRESSION: Successful ultrasound guided paracentesis with right lower quadrant access site. Surgical Findings: Successful paracentesis Women Specialist certified wellness program manager: No Complications Complications: No Procedures Radiology Radiology US Procedures: [id number] Paracentesis
[2024-08-26] MEDS: Albumin Human 25% (100 mL) 25 GM/100 ML BAG IV ×2 (11:56→13:24)
[2024-08-26] MEDS: 0.9% NaCl Peripheral Flush Adult/Peds IV (11:59)
== END | disposition home or self-care (01) ==
LOC: US 10:25
PROVIDERS: PCP Family Medicine; Referring Provider Internal Medicine Gastroenterology; Visit Provider Internal Medicine Gastroenterology
DX: R18.8 Other ascites (principal)
CPT/HCPCS: 96365; 96366; 49083; J7040; J7050; P9047; A4216

== ENCOUNTER → 2024-09-02 | Outpatient (CLI) | payer SELFPAY ==
[2024-09-02 10:18] VITALS: BP 94/41; PULSE 83; RESP 16; TEMP 36.9; O2SAT 100
[2024-09-02] MEDS: Lidocaine 2% (20 ml mdv) 20 ML Vial INFILT (10:20)
[2024-09-02 10:30] VITALS: BP 104/51; PULSE 77; RESP 14; O2SAT 100
[2024-09-02 10:45] VITALS: BP 104/51; PULSE 78; RESP 14; O2SAT 99
[2024-09-02 10:53] VITALS: BP 94/45; PULSE 77; RESP 16; O2SAT 100
[2024-09-02 11:13] VITALS: BP 88/45; PULSE 62; RESP 16; TEMP 36.7; O2SAT 95; BMI 30.2
[2024-09-02] MEDS: 0.9% Saline Lock 10 ML Syringe IV (11:15)
[2024-09-02] MEDS: Albumin Human 25% (100 mL) 25 GM/100 ML BAG IV (11:29)
[2024-09-02] MEDS: Albumin Human 25% (50 mL) 12.5 GM/50 ML IV.SOLN IV (12:57)
[2024-09-02 14:06] VITALS: BP 78/40; PULSE 91; RESP 16; TEMP 36.4; O2SAT 99
== END | disposition home or self-care (01) ==
LOC: US 09:42
PROVIDERS: PCP Family Medicine; Referring Provider Internal Medicine Gastroenterology; Visit Provider Internal Medicine Gastroenterology
DX: R18.8 Other ascites (principal)
CPT/HCPCS: 96365; 96366; 49083; P9047

== ENCOUNTER → 2024-09-08 | Outpatient (CLI) | payer SELFPAY ==
[2024-09-08 10:45] VITALS: BP 94/57; PULSE 99; RESP 16; TEMP 36.5; O2SAT 95
[2024-09-08] MEDS: Lidocaine 2% (20 ml mdv) 20 ML Vial INFILT (10:50)
[2024-09-08 11:00] VITALS: BP 106/59; PULSE 80; RESP 16; O2SAT 98
[2024-09-08 11:15] VITALS: BP 93/49; PULSE 99; RESP 16; O2SAT 97
[2024-09-08 11:22] VITALS: BP 95/49; PULSE 105; RESP 16; O2SAT 99
[2024-09-08] MEDS: Albumin Human 25% (100 mL) 25 GM/100 ML BAG IV ×2 (11:56→13:22)
[2024-09-08 15:17] VITALS: BP 85/50; PULSE 89; RESP 16; TEMP 36.4; O2SAT 100
== END | disposition home or self-care (01) ==
LOC: US 10:22
PROVIDERS: PCP Family Medicine; Referring Provider Internal Medicine Gastroenterology; Visit Provider Internal Medicine Gastroenterology
DX: R18.8 Other ascites (principal)
CPT/HCPCS: 49083; P9047

== ENCOUNTER 2024-12-30 11:49 | Inpatient (IN) | payer SELFPAY ==
[2024-12-30] VITALS (21 sets, daily range): BP systolic 95–115; BP diastolic 49–67; PULSE 86–100; RESP 12–25; TEMP 35.9–37; O2SAT 63–100; BMI 32.5; BMI 31.4
--- NOTE | 2024-12-30 13:45 | EKG12_ITS ---
Test Reason : SOB Blood Pressure : */* mmHG Vent. Rate : 87 BPM Atrial Rate : 87 BPM P-R Int : 128 ms QRS Dur : 76 ms QT Int : 376 ms P-R-T Axes : 48 -3 41 degrees QTcB Int : 452 ms Normal sinus rhythm Normal ECG Confirmed by Maximilian Hearn ([id number]), editor at large VERN VALDOVINOS ([id number]) on 01/01/2025 6:53:59 AM Referred By: Confirmed By: Maximilian Hearn
[2024-12-30] MEDS: Ipratropium/Albuterol Sulfate 3 ML AMPUL.NEB INHALATION ×2 (14:03→22:41)
[2024-12-30] MEDS: Albuterol 2.5 MG/3 ML VIAL.NEB. INHALATION ×3 (14:06)
[2024-12-30 14:13] LABS: Absolute Neutrophil Count 2.5 X10^3/uL (2.0-7.7); Basophil# 0.02 X10^3/uL; Basophil% 0.5 % (0-1); Hematocrit 35.2 % (37-47); Lymphocyte % 18.5 % (19-41); Mean Corp Hgb Conc 31.3 g/dL (32-36); Mean Corpuscular Volume 95.9 fL (81-99); Mean Platelet Vol. 11.5 fl (6.2-12.0); Monocyte# 0.49 X10^3/uL; NRBC Flagged by Analyzer 0 % (0-5); Neutrophil # 2.49 X10^3/uL (2.7-7.7); Neutrophil % 65.9 % (47-70); POSITIVE COUNT YES; POSITIVE MORPHOLOGY YES; Platelet Count 65 K/mm3 (150-450); RBC Distribution Width CV 17.7 % (11.6-14.6); RBC Distribution Width SD 60.9 fl (35.1-43.9); Red Blood Count 3.67 M/mm3 (4.2-5.4); White Blood Count 3.8 K/mm3 (4.4-11.0)
[2024-12-30 14:25] LABS: Base Excess 8 mmol/L (-2 to +2); Bicarbonate 35.1 mmol/L (22-26); Blood Gas Specimen Type ART; Mode Not entered; O2 Delivery Device Not entered; PO2 83 mmHG (75-100); SITE R Radial; SO2 94 % (95-99); Total Carbon Dioxide 38 mmol/L; pCO2 78.6 mmHg (35-45); pH 7.26 (7.35-7.45)
--- NOTE | 2024-12-30 14:33 | EX.ED.DYSGE1 ---
HPI History of Present Illness Chief Complaint: Cold Sx Detail of Chief Complaint: Flulike symptoms that started December 23 diagnosed with influenza Informant: patient and family (Family help with interpretation since she is Barbadian-speaking.) Onset/Context/Timing Onset: Days Context: Gradual Onset Timing: Continuous and Waxes and wanes Quality: Dyspnea, dyspnea on exertion, brown-colored sputum, fever shaking chills Location: Respiratory Current Severity: Moderate Maximum Severity: Severe Worsened by: Any type of activity. Relieved by: Nothing Associated Symptoms Associated Symptoms: Infectious-like symptoms Narrative Narrative: Patient is a 64-year-old woman with history of cirrhosis status post TIPS procedure, cholecystectomy, esophageal varices, COPD, chronic respiratory failure on oxygen by nasal cannula, who presents with increasing shortness of breath brown-colored sputum wheezing dyspnea at rest and increased dyspnea with activity. Daughter was concerned and brought her to the emergency department. Prior similar symptoms: No Recent Illness/Hospitalization: Yes PFSH PFS Medical History Uses wheelchair Non-smoker Tuberculosis Wears glasses Walker as ambulation aid Jaundice Difficulty swallowing Nausea S/P abdominal paracentesis Loss of consciousness Chronic cough On home oxygen therapy Shortness of breath on exertion Chronic anemia Peripheral edema Abdominal ascites Emphysema lung Hypoxia Lung bullae Lactic acidosis Appendicitis Cholecystitis Bronchitis Home Medications ?Medication ?Instructions ?Recorded ?Last Taken ?Type spironolactone 100 mg tablet 200 mg PO DAILY 04/17/24 Unknown History torsemide 20 mg tablet 40 mg PO BID 04/17/24 Unknown History albuterol sulfate 2.5 mg/3 mL 2.5 mg continuous nebulization BID 12/30/24 Unknown History (0.083 %) solution for nebulization lactulose 10 gram/15 mL oral 30 ml PO TID 12/30/24 Unknown History solution midodrine 10 mg tablet 20 mg PO Q6H 12/30/24 Unknown History polyethylene glycol 3350 17 17 g PO BID 12/30/24 Unknown History gram/dose oral powder (ClearLax) sennosides 8.6 mg capsule (senna) 17.2 mg PO BID 12/30/24 Unknown History Allergy/AdvReac Type Severity Reaction Status Date / Time No Known Allergies Allergy Verified 12/30/24 11:53 Surgical History S/P laparoscopic cholecystectomy Social History Smoking Status: Never smoker alcohol intake: never substance use type: does not use ROS ROS ED Constitutional Constitutional ED: Reports chills, fever(s) and sweats Eyes Eyes: Denies blurry vision or change in vision ENT ENT ED: Reports rhinorrhea; Denies ear pain or sore throat Cardiovascular Cardiovascular: Reports orthopnea; Denies paroxysmal nocturnal dyspnea Respiratory/Chest Respiratory/Chest: Reports cough, dyspnea, dyspnea on exertion, orthopnea and sputum; Denies paroxysmal nocturnal dyspnea Gastrointestinal Gastrointestinal: Reports abdominal pain; Denies nausea or vomiting Genitourinary Genitourinary ED: Denies dysuria, hematuria or urinary frequency Musculoskeletal Musculoskeletal: Denies arthralgias, back pain or neck pain Integumentary Denies abscess or rash Neurologic Neurologic: Denies headache(s) or paresthesias Endocrine Endocrinology: Denies cold intolerance or heat intolerance Hematologic/Lymphatic Hematologic/Lymphatic: Reports systems reviewed and no addt'l complaints, except as documented EXAM Physical Exam Const Vital Signs: 12/30/24 11:50 12/30/24 11:53 12/30/24 11:57 Temperature 98.4 F Temperature Source Oral Pulse Rate 88 Respiratory Rate 14 Respiratory Pattern Blood Pressure 108/61 Blood Pressure Mean 76 Pulse Ox 63 100 97 Oxygen Delivery Method Room Air Nasal Cannula Nasal Cannula Oxygen Flow Rate (L/min) 4 2 Fraction of Inspired Oxygen (FIO2) 12/30/24 12:50 12/30/24 13:00 12/30/24 14:03 Temperature Temperature Source Pulse Rate 89 87 87 Respiratory Rate 25 H 18 20 H Respiratory Pattern Blood Pressure 112/65 112/65 Blood Pressure Mean 80 80 Pulse Ox 98 96 Oxygen Delivery Method Nasal Cannula Oxygen Flow Rate (L/min) 2 Fraction of Inspired Oxygen (FIO2) 12/30/24 14:20 12/30/24 14:38 12/30/24 15:00 Temperature 96.6 F L Temperature Source Axillary Pulse Rate 91 93 95 Respiratory Rate 19 H 22 H 25 H Respiratory Pattern Tachypnea Blood Pressure 115/67 109/62 Blood Pressure Mean 83 77 Pulse Ox 97 100 92 Oxygen Delivery Method Bi-pap Oxygen Flow Rate (L/min) Fraction of Inspired Oxygen (FIO2) 35 Positive well nourished and well developed Constitutional Narrative: Patient is jaundiced. Vital signs noted. Patient looks ill. She is not alert. General Appearance ED: well developed; Negative for diaphoretic, NAD or pallor HEENT Reports dry mucous membranes HEENT Narrative: Head is atraumatic normocephalic. Ears normal. Nares patent. Posterior pharynx normal. Mouth ED: Yes dry mucous membranes Mouth: dry mucous membranes Eyes PERRL and EOMs intact bilaterally General Eye ED: Yes pale conjunctiva and scleral icterus Neck no lymphadenopathy, supple and No no JVD Chest Wall inspection of chest normal and palpation of chest normal Resp No normal respiratory effort and No clear to auscultation bilaterally Effort and Inspection: retractions supraclavicular Auscultation: rales bilateral mid and lower and wheezes expiratory wheezes, scattered wheezes and throughout Cardio regular rate, regular rhythm, S1 normal heart sound, S2 normal heart sound and no murmurs GI non-tender and no masses; Negative for normal to inspection, nondistended, normoactive bowel sounds, non-distended or hepatosplenomegaly GI Narrative: Patient has slight distention. There is no fluid wave. There is tympanitic percussion. Bowel sounds are diminished Back/Spine no CVA tenderness Extremity normal to inspection General Extremety ED: Yes edema; Negative for tenderness General Extremity: edema Neuro oriented x3 and CN's II-XII intact bilaterally Sensorium / Orientation: alert Psych mental status grossly normal Skin no rashes or lesions noted and no wounds General Skin Exam: jaundice; Negative for pallor Sepsis Attestation Sepsis Alert: Yes Sepsis Attestation: Agree w/Sepsis Date exam was performed: 12/30/24 Time exam was performed: 15:00 Possible Source of Sepsis: Pulmonary Sepsis Organ Dysfunction Criteria Present: Acute Respiratory Failure (New need for BiPAP/CPAP or MV) and Platelets <100,000 / uL Fluid Resuscitation Fluid resuscitation indicated?: Yes (No) Fluid Resuscitation ordered: Fluids not indicated Reason for lesser fluid bolus:: Concern for fluid overload and Heart failure MDM MDM MDM Narrative Medical decision making narrative: With patient having brown-colored sputum concerned she has post influenza pneumonia. With her wheezing aerosol was ordered. Chest x-ray, appropriate blood work to assess for endorgan dysfunction was ordered as well. Will prophylactically cover for post influenza pneumonia. ABG was obtained since she is not awake and alert. ABG reveals acute hypercapnic respiratory failure with chronic hypoxemic respiratory failure. Lab Data Attestation: I reviewed the patient's lab results. Lab results narrative: CBC reveals pancytopenia which is patient's baseline. Competence of metabolic panel is remarkable for an elevated BUN to creatinine ratio of 35:1. Blood sugar is 77 with a normal CO2 anion gap. Labs: Laboratory Results - last 24 hr 12/30/24 13:55 WBC 3.8 L RBC 3.67 L Hgb 11.0 L Hct 35.2 L MCV 95.9 MCH 30.0 MCHC 31.3 L RDW Std Deviation 60.9 H RDW Coeff of Blas 17.7 H Plt Count 65 L MPV 11.5 Immature Gran % (Auto) 2.100 H Neut % (Auto) 65.9 Lymph % (Auto) 18.5 L Baldwin % (Auto) 13.0 H Eos % (Auto) 0.0 Baso % (Auto) 0.5 Absolute Neuts (auto) 2.5 Absolute Lymphs (auto) 0.70 L Nucleated RBC % 0 Platelet Estimate MOD DEC Polychromasia 1+ Sodium 138 Potassium 5.2 H Chloride 103 Carbon Dioxide 30.7 Anion Gap 4 L BUN 19 Creatinine 0.55 L Est GFR (MDRD) Non-Af 104 BUN/Creatinine Ratio 34.8 H Glucose 77 Calcium 7.8 Total Bilirubin 2.65 H AST 58 H ALT 30 Alkaline Phosphatase 253 H Total Protein 7.4 Albumin 2.5 L Globulin 4.9 H Albumin/Globulin Ratio 0.5 L ABG Data Attestation: I personally reviewed and interpreted this ABG as follows: Interpretation: pH is 7.26, bicarb 35.1 which is elevated, total CO2 is 38, base excess 8, O2 sat 94, pCO2 78.6, pO2 83. This was obtained on oxygen 2 L. In light of the fact that she has acute hypercapnia she was placed on BiPAP. ABG results: ABG 12/30/24 14:20 Specimen Type ART Sample Site R Radial pH 7.26 L Bicarbonate Actual 35.1 H Total CO2 38 Base Excess 8 H O2 Saturation 94 L O2 % 2.0 ABG pCO2 78.6 H* ABG pO2 83 O2 Delivery Device Not entered Vent Mode Not entered Crit Call To/Read Back Yes Blood Gas Notified Whom leong Blood Gas Notified Time 14:22:39 Radiography Diagnostic Testing: Clinical Impression(s) from Imaging Studies Chest X-Ray 12/30/24 15:00 IMPRESSION: Acute bilateral infiltrates superimposed on chronic changes in the right hemithorax with volume loss. Reading Location: [facility] EKG Initial EKG: Attestation: I personally reviewed and interpreted this EKG as follows: Interpretation: Sinus Rhythm (Rate of 87. The EKG is normal. ME interval is 128 ms. Cures duration 76 ms QT duration 376 ms. [place] is normal.) Management Discussion w/another healthcare provider: Hospitalist (Hospitalist been paged for admission to ICU for sepsis with bilateral interstitial pneumonia post influenza infection and will treat with vancomycin.) Critical Care Time Critical Care Time: Yes Critical care time (excluding procedures): 30-74 minutes (31), Including time spent: (History, physical, documentation, review of prior records, independent rotation laboratory results, imaging treatment for sepsis due to post influenza pneumonia), Discussing w/Patient &/or Family/Sr. Social Media & Mobile Manager and Discussing w/Consultants Discharge Plan Dx/Rx/DC Orders Clinical Impression: Sepsis, 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, Esophageal varices, Acute on chronic respiratory failure with hypoxia and hypercapnia, Bilateral interstitial pneumonia, Pancytopenia Disposition Disposition: [facility]
[2024-12-30 14:40] LABS: Differential Indicated SCAN CRITERIA MET
[2024-12-30 14:53] LABS: ALB/GLOB Ratio 0.5 RATIO (0.9-2.4); AST(SGOT) 58 U/L (<=31); Alanine Aminotransfer ALT/SGPT 30 U/L (<=34); Albumin, Serum 2.5 g/dL (3.4-4.8); Alkaline Phosphatase 253 U/L (35-104); Anion Gap 4 (5-15); BUN 19 mg/dL (4-19); BUN/Creat Ratio 34.8 RATIO (10-20); Calcium,Total 7.8 mg/dL (7.6-11.0); Carbon Dioxide 30.7 mmol/L (21.0-32.0); Chloride 103 mmol/L (98-108); Creatinine, Serum 0.55 mg/dL (0.70-1.20); EST Glomerular Filtration Rate 104 (>60); Globulin 4.9 g/dL (2.2-4.2); Glucose 77 mg/dL (70-99); Potassium 5.2 mmol/L (3.3-5.1); Protein, Total 7.4 g/dL (5.9-8.4); Sodium Level 138 mmol/L (133-145); Total Bilirubin 2.65 mg/dL (0.00-1.30)
[2024-12-30 14:54] LABS: Platelet Estimate MOD DEC (ADEQ); Polychromasia 1+
--- NOTE | 2024-12-30 15:00 | RAD_ITS ---
PROCEDURE: CHEST PA AND LATERAL REASON FOR EXAM: Wheezing and productive cough. TECHNIQUE: Frontal and lateral views of the chest. COMPARISON: Comparison is made with prior study dated December 17, 2023. FINDINGS: EKG electrodes are seen. Volume loss in the right hemithorax in keeping with patient's history of prior tuberculosis with scarring. This has progressed as compared to prior study. Progressive infiltration in the left lower lobe and left perihilar regions. This may represent superimposed bilateral infiltrates. Follow-up recommended. Degenerative changes of the thoracic spine. RAD/Chest PA and Lateral IMPRESSION: Acute bilateral infiltrates superimposed on chronic changes in the right hemith orax with volume loss. Reading Location: [place]
--- NOTE | 2024-12-30 15:45 | PCM.HP.STD ---
HPI - General General Date of Admission: 12/30/24 Date of Service: 12/30/24 Chief Complaint: Worsening shortness of breath HPI Narrative KIERRA FOSTER, is a 64 F who presented to [facility] ED on 12/30/2024 with worsening shortness of breath. Patient has history significant for cirrhosis s/p TIPS procedure and COPD with chronic respiratory failure on home 2 L nasal cannula. She developed upper respiratory infection symptoms last week and tested positive for influenza A at her PCP office on 12/25. She has had worsening shortness of breath over the past few days prompting her to come in for further evaluation. She also had some worsening darker sputum production over that time. In the ED she was found to be more hypoxic than her baseline. Chest x-ray showed acute bilateral infiltrates superimposed on chronic changes with significant right-sided infiltrates especially noted. Given these findings, she was placed on BiPAP in the ED and hospitalist was contacted for admission. I saw the patient at bedside in the ED, daughter was present. Patient is [place]i-speaking, daughter served as her olive grader. Patient was on the BiPAP when I saw her and was breathing about 20 times per minute. She did appear fatigued but did not have much increased work of breathing noted when I saw her. Daughter notes that she does appear more comfortable now than she did about 1 hour ago. Patient noted that she feels generally fatigued but not tired from a respiratory standpoint. She was growing tired of the BiPAP and hoping to transition off of it soon. She currently denies any fevers or chills. Denies any chest pain or any abdominal pain or discomfort. No other acute concerns at this time. [facility] Medical History Uses wheelchair Non-smoker Tuberculosis Wears glasses Walker as ambulation aid Jaundice Difficulty swallowing Nausea S/P abdominal paracentesis Loss of consciousness Chronic cough On home oxygen therapy Shortness of breath on exertion Chronic anemia Peripheral edema Abdominal ascites Emphysema lung Hypoxia Lung bullae Lactic acidosis Appendicitis Cholecystitis Bronchitis Home Medications ?Medication ?Instructions ?Recorded ?Last Taken ?Type spironolactone 100 mg tablet 200 mg PO DAILY 04/17/24 Unknown History torsemide 20 mg tablet 40 mg PO BID 04/17/24 Unknown History albuterol sulfate 2.5 mg/3 mL 2.5 mg continuous nebulization BID 12/30/24 Unknown History (0.083 %) solution for nebulization lactulose 10 gram/15 mL oral 30 ml PO TID 12/30/24 Unknown History solution midodrine 10 mg tablet 20 mg PO Q6H 12/30/24 Unknown History polyethylene glycol 3350 17 17 g PO BID 12/30/24 Unknown History gram/dose oral powder (ClearLax) sennosides 8.6 mg capsule (senna) 17.2 mg PO BID 12/30/24 Unknown History Allergy/AdvReac Type Severity Reaction Status Date / Time No Known Allergies Allergy Verified 12/30/24 11:53 Surgical History S/P laparoscopic cholecystectomy Social History Smoking Status: Never smoker alcohol intake: never substance use type: does not use ROS Constitutional Constitutional: Reports fatigue and weakness; Denies chills or fever(s) Eyes Eyes: Denies change in vision Cardiovascular Cardiovascular: Reports dyspnea on exertion; Denies chest pain or edema Respiratory/Chest Respiratory/Chest: Reports cough, dyspnea, productive cough, shortness of breath at rest and shortness of breath with exertion; Denies wheezing Gastrointestinal Gastrointestinal: Denies abdominal pain Musculoskeletal Musculoskeletal: Denies arthralgias or myalgias Vital Signs Vital Signs Vital Signs: 12/30/24 11:50 12/30/24 11:53 12/30/24 11:57 Temperature 98.4 F Temperature Source Oral Pulse Rate 88 Respiratory Rate 14 Respiratory Pattern Blood Pressure 108/61 Blood Pressure Mean 76 Pulse Ox 63 100 97 Oxygen Delivery Method Room Air Nasal Cannula Nasal Cannula Oxygen Flow Rate (L/min) 4 2 Fraction of Inspired Oxygen (FIO2) 12/30/24 12:50 12/30/24 13:00 12/30/24 14:03 Temperature Temperature Source Pulse Rate 89 87 87 Respiratory Rate 25 H 18 20 H Respiratory Pattern Blood Pressure 112/65 112/65 Blood Pressure Mean 80 80 Pulse Ox 98 96 Oxygen Delivery Method Nasal Cannula Oxygen Flow Rate (L/min) 2 Fraction of Inspired Oxygen (FIO2) 12/30/24 14:20 12/30/24 14:38 12/30/24 15:00 Temperature 96.6 F L Temperature Source Axillary Pulse Rate 91 93 95 Respiratory Rate 19 H 22 H 25 H Respiratory Pattern Tachypnea Blood Pressure 115/67 109/62 Blood Pressure Mean 83 77 Pulse Ox 97 100 92 Oxygen Delivery Method Bi-pap Oxygen Flow Rate (L/min) Fraction of Inspired Oxygen (FIO2) 35 Weight Weight: 78.3 kg Body Mass Index (BMI) 32.5 Physical Exam Const alert and oriented x3 Constitutional Narrative: Upper middle-aged female, class I obesity, fatigued appearing, breathing comfortably on BiPAP, answering questions with short appropriate responses and mentating appropriately. General Appearance: cooperative HEENT normocephalic, head/scalp atraumatic, hearing grossly normal bilaterally and nasal mucous membranes and turbinates normal HEENT Narrative: BiPAP in place. Eyes PERRL, EOMs intact bilaterally and conjunctivae normal Neck full ROM Chest inspection of chest normal Resp Resp Narrative: Mild increased work of breathing noted on BiPAP. Significantly diminished breath sounds bilaterally with crackles noted on right. No wheezing noted. Cardio regular rate, regular rhythm, no murmurs and peripheral pulses 2+ throughout GI normal to inspection, nondistended, normoactive bowel sounds, soft to palpation, non-tender and non-distended Back/Spine normal ROM Extremity normal to inspection, full ROM and no pedal edema Skin no rashes or lesions noted Neuro moves all extremities and no focal motor deficits Speech: speech normal Motor Exam: strength 5/5 throughout Psych mental status grossly normal Mood & Affect: anxious Results Lab / Micro Data 12/30/24 13:55 12/30/24 13:55 Labs: Laboratory Results - last 24 hr 12/30/24 13:55: WBC 3.8 L, RBC 3.67 L, Hgb 11.0 L, Hct 35.2 L, MCV 95.9, MCH 30.0, MCHC 31.3 L, RDW Std Deviation 60.9 H, RDW Coeff of Blas 17.7 H, Plt Count 65 L, MPV 11.5, Immature Gran % (Auto) 2.100 H, Neut % (Auto) 65.9, Lymph % (Auto) 18.5 L, [place] % (Auto) 13.0 H, Eos % (Auto) 0.0, Baso % (Auto) 0.5, Absolute Neuts (auto) 2.5, Absolute Lymphs (auto) 0.70 L, Nucleated RBC % 0, Platelet Estimate MOD DEC, Polychromasia 1+, Sodium 138, Potassium 5.2 H, Chloride 103, Carbon Dioxide 30.7, Anion Gap 4 L, BUN 19, Creatinine 0.55 L, Est GFR (MDRD) Non-Af 104, BUN/Creatinine Ratio 34.8 H, Glucose 77, Calcium 7.8, Total Bilirubin 2.65 H, AST 58 H, ALT 30, Alkaline Phosphatase 253 H, Total Protein 7.4, Albumin 2.5 L, Globulin 4.9 H, Albumin/Globulin Ratio 0.5 L ABG Data ABG results: ABG 12/30/24 14:20 Specimen Type ART Sample Site R Radial pH 7.26 L Bicarbonate Actual 35.1 H Total CO2 38 Base Excess 8 H O2 Saturation 94 L O2 % 2.0 ABG pCO2 78.6 H* ABG pO2 83 O2 Delivery Device Not entered Vent Mode Not entered Crit Call To/Read Back Yes Blood Gas Notified Whom leong Blood Gas Notified Time 14:22:39 Imaging Radiology Impression Chest X-Ray 12/30/24 15:00 IMPRESSION: Acute bilateral infiltrates superimposed on chronic changes in the right hemithorax with volume loss. Reading Location: [id number] Assessment & Plan Assessment/Plan (1) Acute on chronic respiratory failure with hypoxia and hypercapnia: PLAN: Plan Patient is a 64-year-old female who presented [facility] ED on 12/30/2024 with worsening shortness of breath. 1. Acute on chronic hypoxic and hypercapnic respiratory failure in setting of influenza A infection ? Admit under inpatient status to ICU. Service Desk Manager consulted. Positive for influenza A on 12/25 at PCP office. On home 2 L nasal cannula. Presented with worsening shortness of breath and cough. Initial ABG on 2L showed pH 7.26, pO2 83, pCO2 78. Chest x-ray with acute bilateral infiltrates superimposed on chronic changes. Placed on BiPAP in the ED with good improvement in respiratory status. Procalcitonin normal, low concern for superimposed bacterial infection. Outside of the window for Tamiflu. Suspect patient has some degree of pulmonary edema in setting of cirrhosis and possibly in part due to flu infection. Will give 1 dose of IV Lasix and monitor BMP and urine output. Wean supplemental oxygen as able. Appreciate sheet rock nailer recommendations. 2. History of decompensated HARRISON cirrhosis with ascites and esophageal varices s/p TIPS procedure ? Follows with Dr. Estrada. Has history of frequent paracenteses here. Last paracentesis was done in August with 7550 ml of fluid removed. Abdomen soft on admit but fluid wave did appear present. Mentating appropriately on admit. Therapeutic paracentesis ordered. Will continue home torsemide and spironolactone. Continue home lactulose as well. LFTs mildly elevated on admit but stable from previous. 3. Mild chronic normocytic anemia ? Hemoglobin 11.0 on admit, stable at baseline. 4. Chronic thrombocytopenia ? Platelet count 65 on admit, baseline 70-80. Stable. 5. Class I obesity ? BMI 31 on admit. Complicates hospital course, care and prognosis. DVT prophylaxis: Lovenox CODE STATUS: Full code, verified Expected disposition: TBD Total clinical time spent by myself addressing the patient's medical issues, reviewing all the data, and collaborating with patient's care team: 75 minutes. Charges/Coding Visit Charges Inpatient E&M: 04854 Init Hosp L3
[2024-12-30] MEDS: Ceftriaxone 2 GM in 0.9% Normal Saline (50mL MB+) 50 ML IV (16:07)
[2024-12-30] MEDS: Azithromycin 500 MG in 0.9% Normal Saline (250mL Bag) 250 ML 255 MG IV (16:10)
[2024-12-30 16:13] LABS: Lactic Acid 1.7 mmol/L (0.0-2.0)
[2024-12-30] MEDS: Furosemide 40 MG/4 ML Vial IV (17:00)
[2024-12-30 17:38] LABS: Procalcitonin 0.03 ng/mL (<=0.10)
[2024-12-30] MEDS: Vancomycin HCl 1,250 MG in 0.9% Normal Saline (250mL Bag) 250 ML 250 MG IV (18:36)
[2024-12-30] MEDS: Spironolactone 50 MG Tablet 100 MG PO (21:51)
[2024-12-30] MEDS: Midodrine HCl 5 MG Tablet 20 MG PO (21:51)
[2024-12-30] MEDS: Torsemide 20 MG Tablet 40 MG PO (21:52)
[2024-12-30] MEDS: Lactulose 20 GM/30 ML UDC PO (21:53)
[2024-12-30] MEDS: 0.9% Normal Saline (100mL Bag) 100 ML 15 ML IV (21:55)
[2024-12-30] MEDS: 0.9% Saline Lock 10 ML Syringe IV (21:55)
[2024-12-30] MEDS: Piperacil/Tazobactam 3.375 GM in 0.9% Normal Saline (50mL MB+) 50 ML IV (21:56)
--- NOTE | 2024-12-30 23:41 | PCM.RX.CS ---
Consult Antibiotic Management Pharmacy has been consulted to manage selected antibiotic: Vancomycin Type of Intervention Type of Consult: New start Suspected Infection Suspected Infection: Pneumonia Labs Labs: Sodium 138 mmol/L (133-145) 12/30/24 13:55 Potassium 5.2 mmol/L (3.3-5.1) H 12/30/24 13:55 Chloride 103 mmol/L (98-108) 12/30/24 13:55 Carbon Dioxide 30.7 mmol/L (21.0-32.0) 12/30/24 13:55 Anion Gap 4 (5-15) L 12/30/24 13:55 BUN 19 mg/dL (4-19) 12/30/24 13:55 Creatinine 0.55 mg/dL (0.70-1.20) L 12/30/24 13:55 Est GFR (MDRD) Non-Af 104 (>60) 12/30/24 13:55 BUN/Creatinine Ratio 34.8 RATIO (10-20) H 12/30/24 13:55 Glucose 77 mg/dL (70-99) 12/30/24 13:55 Dosing Weight Weight used for dosin.6 kg Estimated Creatinine Clearance Estimated Creatinine Clearance: 90 Goal Trough Goal Trough: 15-20 mcg/mL Pharmacy Plan for Drug Dosing Pharmacy Plan for Drug Dosing: Pharmacy Service will continue to monitor and adjust dosing as required. Follow-Up Labs Follow-Up Labs: Trough: Vancomycin Date/Time Labs Ordered Labs to be done on [date and time ordered]: 01/01/25 @0600
[2024-12-31] VITALS (23 sets, daily range): BP systolic 86–117; BP diastolic 48–62; PULSE 71–93; RESP 12–24; TEMP 36.1–36.2; O2SAT 94–100; BMI 31.4
[2024-12-31 05:04] LABS: Hematocrit 32.6 % (37-47); Mean Corp Hgb Conc 30.7 g/dL (32-36); Mean Corpuscular Hgb 29.4 pg (27.0-32.0); Mean Corpuscular Volume 95.9 fL (81-99); Mean Platelet Vol. 9.1 fl (6.2-12.0); POSITIVE COUNT YES; Platelet Count 67 K/mm3 (150-450); RBC Distribution Width CV 17.9 % (11.6-14.6); RBC Distribution Width SD 61.1 fl (35.1-43.9); White Blood Count 3.8 K/mm3 (4.4-11.0)
[2024-12-31 05:06] LABS: Scan Indicated on CBC? Y/N YES- FLAGS NOTED
[2024-12-31 05:22] LABS: ALB/GLOB Ratio 0.5 RATIO (0.9-2.4); AST(SGOT) 59 U/L (<=31); Alanine Aminotransfer ALT/SGPT 29 U/L (<=34); Albumin, Serum 2.4 g/dL (3.4-4.8); Alkaline Phosphatase 242 U/L (35-104); Anion Gap 6 (5-15); BUN 17 mg/dL (4-19); BUN/Creat Ratio 24.1 RATIO (10-20); Calcium,Total 7.7 mg/dL (7.6-11.0); Chloride 101 mmol/L (98-108); EST Glomerular Filtration Rate 98 (>60); Estimated Creatinine Clearance 77.51 ml/min (50-250); Globulin 4.9 g/dL (2.2-4.2); Glucose 76 mg/dL (70-99); Potassium 4.4 mmol/L (3.3-5.1); Protein, Total 7.3 g/dL (5.9-8.4); Sodium Level 140 mmol/L (133-145); Total Bilirubin 2.73 mg/dL (0.00-1.30)
[2024-12-31] MEDS: Lactulose 20 GM/30 ML UDC PO ×3 (05:50→21:01)
[2024-12-31] MEDS: Midodrine HCl 5 MG Tablet 20 MG PO ×3 (05:50→17:57)
[2024-12-31] MEDS: Piperacil/Tazobactam 3.375 GM in 0.9% Normal Saline (50mL MB+) 50 ML IV ×3 (05:50→20:59)
[2024-12-31] MEDS: Vancomycin HCl 1,500 MG in 0.9% Normal Saline (500mL Bag) 500 ML 250 MG IV ×2 (06:39→17:57)
[2024-12-31] MEDS: 0.9% Normal Saline (100mL Bag) 100 ML 15 ML IV (06:39)
[2024-12-31] MEDS: Ipratropium/Albuterol Sulfate 3 ML AMPUL.NEB INHALATION ×3 (07:14→19:26)
--- NOTE | 2024-12-31 07:28 | PN.HOSP_ITS ---
Reason for Visit Reason for Visit: Diagnoses Acute and chronic respiratory failure with hypoxia (12/30/24) Acute and chronic respiratory failure with hypercapnia (12/30/24) Subjective Subjective Patient is a 64-year-old female who presented with progressive shortness of breath diagnosed with acute hypoxic respiratory failure in the setting of acute influenza A infection placed on noninvasive ventilation admitted to the intensive care unit for further management Objective Data Objective Data Vital Signs: Vital Signs Temp Pulse Resp BP Pulse Ox O2 Del Method O2 Flow Rate 97.0 F L 71 18 99/60 100 Bi-pap 2 12/31/24 04:00 12/31/24 07:15 12/31/24 07:15 12/31/24 06:00 12/31/24 07:15 12/31/24 06:00 12/30/24 22:00 FiO2 30 12/31/24 07:15 Oxygen Flow Rate (L/min) 2 Oxygen Delivery Method Bi-pap Weight: 75.6 kg Body Mass Index (BMI) 31.4 Intake & Output: Intake and Output for Last 24 Hours 12/29/24 12/30/24 12/31/24 23:59 23:59 23:59 Intake Total 630 / 630 200 / 200 Output Total 0 / 1000 2100 / 2100 Balance 630 / -370 -1900 / -1900 Lab / Micro Data 12/31/24 04:50 12/31/24 04:50 Labs: Laboratory Results - last 24 hr 12/30/24 13:55: WBC 3.8 L, RBC 3.67 L, Hgb 11.0 L, Hct 35.2 L, MCV 95.9, MCH 30.0, MCHC 31.3 L, RDW Std Deviation 60.9 H, RDW Coeff of Blas 17.7 H, Plt Count 65 L, MPV 11.5, Immature Gran % (Auto) 2.100 H, Neut % (Auto) 65.9, Lymph % (Auto) 18.5 L, [place] % (Auto) 13.0 H, Eos % (Auto) 0.0, Baso % (Auto) 0.5, Absolute Neuts (auto) 2.5, Absolute Lymphs (auto) 0.70 L, Nucleated RBC % 0, Platelet Estimate MOD DEC, Polychromasia 1+, Sodium 138, Potassium 5.2 H, Chloride 103, Carbon Dioxide 30.7, Anion Gap 4 L, BUN 19, Creatinine 0.55 L, Est GFR (MDRD) Non-Af 104, BUN/Creatinine Ratio 34.8 H, Glucose 77, Lactic Acid 1.7, Calcium 7.8, Total Bilirubin 2.65 H, AST 58 H, ALT 30, Alkaline Phosphatase 253 H, Total Protein 7.4, Albumin 2.5 L, Globulin 4.9 H, Albumin/Globulin Ratio 0.5 L 12/30/24 16:15: Procalcitonin 0.03 12/31/24 04:50: WBC 3.8 L, RBC 3.40 L, Hgb 10.0 L, Hct 32.6 L, MCV 95.9, MCH 29.4, MCHC 30.7 L, RDW Std Deviation 61.1 H, RDW Coeff of Blas 17.9 H, Plt Count 67 L, MPV 9.1, Differential Comment , Sodium 140, Potassium 4.4, Chloride 101, C arbon Dioxide 33.0 H, Anion Gap 6, BUN 17, Creatinine 0.70, Estim Creat Clear Calc 77.51, Est GFR (MDRD) Non-Af 98, BUN/Creatinine Ratio 24.1 H, Glucose 76, Calcium 7.7, Total Bilirubin 2.73 H, AST 59 H, ALT 29, Alkaline Phosphatase 242 H, Total Protein 7.3, Albumin 2.4 L, Globulin 4.9 H, Albumin/Globulin Ratio 0.5 L ABG Data ABG results: ABG 12/30/24 14:20 Specimen Type ART Sample Site R Radial pH 7.26 L Bicarbonate Actual 35.1 H Total CO2 38 Base Excess 8 H O2 Saturation 94 L O2 % 2.0 ABG pCO2 78.6 H* ABG pO2 83 O2 Delivery Device Not entered Vent Mode Not entered Crit Call To/Read Back Yes Blood Gas Notified Whom leong Blood Gas Notified Time 14:22:39 Radiography Diagnostic Testing: Radiology Impression Chest X-Ray 12/30/24 15:00 IMPRESSION: Acute bilateral infiltrates superimposed on chronic changes in the right hemithorax with volume loss. Reading Location: [facility] Physical Exam Narrative GENERAL: Patient appears ill looking HEENT: Atraumatic; normocephalic EYES; Anicteric, Normal Conjunctiva NECK; supple, normal thyroid, RESPIRATORY: Diminished to auscultation CARDIOVASCULAR: Regular S1 S2, GI: soft, normoactive bowel sounds, : No Renal angle tenderness; EXTREMITIES: adelso edema, no clubbing, MUSCULOSKELETAL: no muscle wasting NEURO: Awake; no lateralizing signs. SKIN: No Rash PSYCH; Flat affect Assessment & Plan Assessment/Plan (1) Acute on chronic respiratory failure with hypoxia and hypercapnia: PLAN: Plan Patient is a 64-year-old female who presented [facility] ED on 12/30/2024 with worsening shortness of breath. 1. Acute on chronic hypoxic and hypercapnic respiratory failure secondary to influenza A infection ?Imaging studies obtained on admission demonstrated bilateral infiltrates. Patient admitted to the intensive care unit placed on noninvasive ventilation via BiPAP. Patient was deemed to be outside the window for Tamiflu. Patient was however started on broad-spectrum antibiotic therapy with piperacillin/tazobactam and vancomycin for suspected superimposed pneumonia. Consult placed to employee service officer 2. Nonalcoholic fatty liver disease with complications including cirrhosis with ascites and esophageal varices ? With previous TIPS procedure. Patient has frequent paracentesis as outpatient and is followed by Dr. Estrada with GI. Patient is on lactulose did continue with home dose. Patient is on torsemide and Aldactone continued 3. Anemia ? Secondary to chronic disorder monitoring H&H and transfuse if patient becomes symptomatic or hemoglobin falls below 7 4. Chronic trouble cytopenia ? Secondary to chronic liver disease we will continue with monitoring with daily CBC with differential 5. Class I obesity with BMI of 32 ? Complicating care weight loss advised 6. Physical deconditioning ? Requested for PT OT eval and social worker assistant to assist with discharge planning 7. DVT prophylaxis ? On enoxaparin Time spent in the patient's overall evaluation,decision-making process, review of diagnostic data, adjustment of management, discussion with other providers, nursing nursing and ancillary staff involved in patient's care documentation, 52 Minutes Charges/Coding Visit Charges Inpatient E&M: 44856 [facility] Hosp L3
--- NOTE | 2024-12-31 07:43 | EX.PCM.CONCC ---
Assessment & Plan Assessment/Plan (1) Acute on chronic respiratory failure with hypoxia and hypercapnia: PLAN: Plan RECOMMENDATIONS: 1. Okay to wean from BiPAP therapy. Continue to wean supplemental oxygen to maintain saturations at or above 90%. 2. Tentative plans for paracentesis. 3. Continue empiric broad-spectrum antimicrobials. 4. Continue scheduled bronchodilators and IV steroids. 5. Check COVID, influenza and RSV PCR's, along with strep and urine Legionella antigens. 6. The patient is medically stable for transfer out of the intensive care unit. IMPRESSIONS: 1. Acute on chronic respiratory failure with hypoxemia and hypercapnia Presumed secondary to COPD exacerbation related to bilateral pneumonia. The patient has been maintained on bronchodilators and IV antimicrobial therapy. She has responded to noninvasive positive pressure ventilatory support and has been weaned to nasal cannula oxygen this morning. Plan to continue current supportive measures. Will also plan to check COVID, influenza and RSV PCR's, along the strep and urine Legionella antigens. 2. History of HARRISON cirrhosis status post TIPS The patient requires frequent paracenteses on an outpatient basis. Continue outpatient medication regimen, including diuretics and lactulose. This note was generated with [employer] dictation software. It may contain incorrect words, spelling, and punctuation that were not noted in checking the note before signing. HPI Consult Data Date of Consult: 12/31/24 HPI Narrative Reason for Consultation: Respiratory failure HPI Narrative: The patient is a 64-year-old female, with a history as outlined below, who presented to the emergency department on December 30 with progressive dyspnea. The patient has an apparent history of COPD of unclear severity along with chronic hypoxemic respiratory failure with a baseline oxygen requirement of 2 L/min and a history of HARRISON cirrhosis status post TIPS, requiring frequent paracenteses. In addition to her dyspnea, the patient also reported the presence of a worsening cough with dark sputum production. On presentation to the emergency department, the patient was documented to be afebrile and hemodynamically stable. Laboratory evaluation was notable for evidence of pancytopenia. Initial ABG was notable for a pH of 7.26 with a pCO2 of 78 and pO2 of 83. Chemistry profile was notable for a potassium of 5.2 and normal creatinine. Lactate was within normal limits. Total bilirbin was elevated at 2.65. Procalcitonin was within normal limits. Chest x-ray demonstrated evidence of bilateral infiltrates, right greater than left with associated volume loss. In the emergency department, the patient was started on BiPAP therapy. Empiric broad-spectrum antimicrobials were initiated. The patient was subsequently admitted to the medical intensive care unit for further management. This morning, the patient is afebrile and hemodynamically stable. She is currently maintaining appropriate oxygen saturations on 4 L/min via nasal cannula, after having been weaned from BiPAP therapy. [facility] Medical History Uses wheelchair Non-smoker Tuberculosis Wears glasses Walker as ambulation aid Jaundice Difficulty swallowing Nausea S/P abdominal paracentesis Loss of consciousness Chronic cough On home oxygen therapy Shortness of breath on exertion Chronic anemia Peripheral edema Abdominal ascites Emphysema lung Hypoxia Lung bullae Lactic acidosis Appendicitis Cholecystitis Bronchitis Home Medications ?Medication ?Instructions ?Recorded ?Last Taken ?Type spironolactone 100 mg tablet 200 mg PO DAILY 04/17/24 Unknown History torsemide 20 mg tablet 40 mg PO BID 04/17/24 Unknown History albuterol sulfate 2.5 mg/3 mL 2.5 mg continuous nebulization BID 12/30/24 Unknown History (0.083 %) solution for nebulization lactulose 10 gram/15 mL oral 30 ml PO TID 12/30/24 Unknown History solution midodrine 10 mg tablet 20 mg PO Q6H 12/30/24 Unknown History polyethylene glycol 3350 17 17 g PO BID 12/30/24 Unknown History gram/dose oral powder (ClearLax) sennosides 8.6 mg capsule (senna) 17.2 mg PO BID 12/30/24 Unknown History Allergy/AdvReac Type Severity Reaction Status Date / Time No Known Allergies Allergy Verified 12/30/24 11:53 Surgical History S/P laparoscopic cholecystectomy Social History Smoking Status: Never smoker alcohol intake: never substance use type: does not use ROS ROS Narrative 10 systems were reviewed with pertinent positives as noted in the HPI above. Physical Exam Const alert and no apparent distress Constitutional Narrative: Sitting in bedside recliner. General Appearance: cooperative and ill appearing HEENT normocephalic and head/scalp atraumatic Eyes EOMs intact bilaterally and conjunctivae normal Neck supple General: trachea midline Chest inspection of chest normal Resp normal respiratory effort Auscultation: rhonchi and diminished lung sounds Cardio regular rate and regular rhythm GI normal to inspection, nondistended, normoactive bowel sounds Extremity no clubbing, cyanosis or edema Skin no rashes or lesions noted Neuro CN's II-XII intact bilaterally, moves all extremities and no focal motor deficits Psych Mood & Affect: flat affect Lab / Micro Data 12/31/24 04:50 12/31/24 04:50 Labs: Laboratory Results - last 24 hr 12/30/24 13:55: WBC 3.8 L, RBC 3.67 L, Hgb 11.0 L, Hct 35.2 L, MCV 95.9, MCH 30.0, MCHC 31.3 L, RDW Std Deviation 60.9 H, RDW Coeff of Blas 17.7 H, Plt Count 65 L, MPV 11.5, Immature Gran % (Auto) 2.100 H, Neut % (Auto) 65.9, Lymph % (Auto) 18.5 L, [place] % (Auto) 13.0 H, Eos % (Auto) 0.0, Baso % (Auto) 0.5, Absolute Neuts (auto) 2.5, Absolute Lymphs (auto) 0.70 L, Nucleated RBC % 0, Platelet Estimate MOD DEC, Polychromasia 1+, Sodium 138, Potassium 5.2 H, Chloride 103, Carbon Dioxide 30.7, Anion Gap 4 L, BUN 19, Creatinine 0.55 L, Est GFR (MDRD) Non-Af 104, BUN/Creatinine Ratio 34.8 H, Glucose 77, Lactic Acid 1.7, Calcium 7.8, Total Bilirubin 2.65 H, AST 58 H, ALT 30, Alkaline Phosphatase 253 H, Total Protein 7.4, Albumin 2.5 L, Globulin 4.9 H, Albumin/Globulin Ratio 0.5 L 12/30/24 16:15: Procalcitonin 0.03 12/31/24 04:50: WBC 3.8 L, RBC 3.40 L, Hgb 10.0 L, Hct 32.6 L, MCV 95.9, MCH 29.4, MCHC 30.7 L, RDW Std Deviation 61.1 H, RDW Coeff of Blas 17.9 H, Plt Count 67 L, MPV 9.1, Differential Comment , Sodium 140, Potassium 4.4, Chloride 101, Carbon Dioxide 33.0 H, Anion Gap 6, BUN 17, Creatinine 0.70, Estim Creat Clear Calc 77.51, Est GFR (MDRD) Non-Af 98, BUN/Creatinine Ratio 24.1 H, Glucose 76, Calcium 7.7, Total Bilirubin 2.73 H, AST 59 H, ALT 29, Alkaline Phosphatase 242 H, Total Protein 7.3, Albumin 2.4 L, Globulin 4.9 H, Albumin/Globulin Ratio 0.5 L ABG Data ABG results: ABG 12/30/24 14:20 Specimen Type ART Sample Site R Radial pH 7.26 L Bicarbonate Actual 35.1 H Total CO2 38 Base Excess 8 H O2 Saturation 94 L O2 % 2.0 ABG pCO2 78.6 H* ABG pO2 83 O2 Delivery Device Not entered Vent Mode Not entered Crit Call To/Read Back Yes Blood Gas Notified Whom leong Blood Gas Notified Time 14:22:39 Imaging Radiology Impression Chest X-Ray 12/30/24 15:00 IMPRESSION: Acute bilateral infiltrates superimposed on chronic changes in the right hemithorax with volume loss. Reading Location: [id number] Charges/Coding Visit Charges Inpatient E&M: 99660 Init Hosp L3
[2024-12-31] MEDS: Polyethylene Glycol 3350 17 GM PACKET PO (10:01)
[2024-12-31] MEDS: Senna Tablet 2 TABLET PO (10:01)
[2024-12-31] MEDS: Torsemide 20 MG Tablet 40 MG PO ×2 (10:02→17:57)
[2024-12-31] MEDS: Spironolactone 50 MG Tablet 100 MG PO ×2 (10:03→21:01)
[2024-12-31] MEDS: Enoxaparin 40 MG/0.4 ML Syringe SC (11:59)
--- NOTE | 2024-12-31 14:25 | NURSING ---
Patient left unit to radiology
--- NOTE | 2024-12-31 14:50 | CASEMGMT ---
SHEBA CM into pt room for assessment, pt is off of the floor at this time.
--- NOTE | 2024-12-31 15:00 | NURSING ---
Patient returned to unit
--- NOTE | 2024-12-31 22:43 | US_ITS ---
PROCEDURE: ABDOMEN LIMITED REASON FOR EXAM: Recurrent ascites COMPARISON: 09/08/2024 FINDINGS: Grayscale images of the abdomen were obtained. No visualized ascites. US/Abdomen Limited IMPRESSION: No visualized ascites. Reading Location: [facility]
[2025-01-01] VITALS (18 sets, daily range): BP systolic 102–116; BP diastolic 56–77; PULSE 69–108; RESP 12–38; TEMP 36.1–36.4; O2SAT 96–100; BMI 31.6
[2025-01-01] MEDS: Vancomycin Trough/Random Due 1 LAB MC (05:19)
[2025-01-01] MEDS: Piperacil/Tazobactam 3.375 GM in 0.9% Normal Saline (50mL MB+) 50 ML IV ×3 (05:45→22:37)
[2025-01-01] MEDS: Lactulose 20 GM/30 ML UDC PO ×2 (05:48→13:21)
[2025-01-01] MEDS: Midodrine HCl 5 MG Tablet 20 MG PO ×2 (05:48→11:37)
[2025-01-01 05:57] LABS: Absolute Lymphocyte Count 0.55 X10^3/uL (0.83-4.51); Basophil# 0.01 X10^3/uL; Basophil% 0.4 % (0-1); Hematocrit 33.1 % (37-47); Hemoglobin 10.2 g/dL (12.0-15.0); Lymphocyte # 0.55 X10^3/ul (0.83-4.51); Lymphocyte % 20.3 % (19-41); Mean Corp Hgb Conc 30.8 g/dL (32-36); Mean Corpuscular Hgb 29.4 pg (27.0-32.0); Mean Corpuscular Volume 95.4 fL (81-99); Monocyte# 0.15 X10^3/uL; Monocyte% 5.5 % (0-10); NRBC Flagged by Analyzer 0 % (0-5); Neutrophil # 1.96 X10^3/uL (2.7-7.7); Neutrophil % 72.3 % (47-70); POSITIVE COUNT YES; POSITIVE DIFFERENTIAL YES; POSITIVE MORPHOLOGY YES; Platelet Count 69 K/mm3 (150-450); RBC Distribution Width CV 17.7 % (11.6-14.6); RBC Distribution Width SD 60.2 fl (35.1-43.9); Red Blood Count 3.47 M/mm3 (4.2-5.4); White Blood Count 2.7 K/mm3 (4.4-11.0)
[2025-01-01 06:54] LABS: Differential Indicated SCAN CRITERIA MET
[2025-01-01 06:59] LABS: ALB/GLOB Ratio 0.5 RATIO (0.9-2.4); AST(SGOT) 55 U/L (<=31); Alanine Aminotransfer ALT/SGPT 26 U/L (<=34); Albumin, Serum 2.3 g/dL (3.4-4.8); Alkaline Phosphatase 217 U/L (35-104); Anion Gap 8 (5-15); BUN 15 mg/dL (4-19); BUN/Creat Ratio 16.6 RATIO (10-20); Calcium,Total 7.4 mg/dL (7.6-11.0); Carbon Dioxide 35.9 mmol/L (21.0-32.0); Chloride 98 mmol/L (98-108); Creatinine, Serum 0.88 mg/dL (0.70-1.20); EST Glomerular Filtration Rate 75 (>60); Estimated Creatinine Clearance 61.78 ml/min (50-250); Glucose 122 mg/dL (70-99); Magnesium 1.4 mg/dL (1.5-2.2); Phosphorus 3.4 mg/dL (2.7-4.5); Potassium 3.7 mmol/L (3.3-5.1); Protein, Total 7.2 g/dL (5.9-8.4); Sodium Level 143 mmol/L (133-145); Total Bilirubin 2.97 mg/dL (0.00-1.30)
[2025-01-01 07:40] LABS: Pathologist Review May foll; Platelet Estimate MOD DEC (ADEQ)
--- NOTE | 2025-01-01 07:42 | PCM.PN.INT ---
Assessment & Plan Assessment/Plan (1) Acute on chronic respiratory failure with hypoxia and hypercapnia: PLAN: Plan RECOMMENDATIONS: 1. Continue to wean supplemental oxygen to maintain saturations at or above 90%. 2. Continue antimicrobials. 3. Continue scheduled bronchodilators. 4. Okay to transition from IV steroids to prednisone 40 mg daily to complete a 5-day burst. 5. Will sign off from a critical care perspective. Please call with any additional questions. IMPRESSIONS: 1. Acute on chronic respiratory failure with hypoxemia and hypercapnia Presumed secondary to COPD exacerbation related to influenza A and superimposed Enterobacter pneumonia. The patient has been maintained on bronchodilators and IV antimicrobial therapy. She has responded to noninvasive positive pressure ventilatory support and has been weaned to nasal cannula oxygen. Plan to continue current supportive measures. At this time, we will transition the patient from IV steroids to prednisone 40 mg daily to complete a 5-day burst. Encourage incentive spirometer use and mobilize patient as tolerated. 2. History of HARRISON cirrhosis status post TIPS The patient requires frequent paracenteses on an outpatient basis. Continue outpatient medication regimen, including diuretics and lactulose. This note was generated with [employer] dictation software. It may contain incorrect words, spelling, and punctuation that were not noted in checking the note before signing. Subjective Subjective The patient was seen and examined at the bedside this morning. Events from the last 24 hours have been reviewed. The patient is currently afebrile, hemodynamically stable and maintaining appropriate oxygen saturations on 3 L/min via nasal cannula. No overnight events were noted by the nursing staff. The patient did ultimately test positive for influenza A yesterday. Objective Data Objective Data The patient's most recent lab work, culture data and imaging studies have all been personally reviewed. Influenza A PCR was positive on December 31. Sputum culture is currently demonstrating growth of Enterobacter species. Vital Signs: Vital Signs Temp Pulse Resp BP Pulse Ox O2 Del Method O2 Flow Rate 97.0 F L 90 18 106/58 L 98 Nasal Cannula 2 01/01/25 02:00 01/01/25 06:00 01/01/25 06:00 01/01/25 02:00 01/01/25 05:30 01/01/25 06:00 01/01/25 06:00 FiO2 30 01/01/25 05:30 Oxygen Flow Rate (L/min) 2 Oxygen Delivery Method Nasal Cannula Weight: 167 lb 5.294 oz Body Mass Index (BMI) 31.6 Intake & Output: Intake and Output for Last 24 Hours 12/30/24 12/31/24 01/01/25 23:59 23:59 23:59 Intake Total 630 / 630 1899.50 / 1899.50 410 / 410 Output Total 0 / 1000 4750 / 4750 600 / 600 Balance 630 / -370 -2850.50 / -2850.50 -190 / -190 Lab / Micro Data Attestation: I reviewed the patient's lab results. 01/01/25 05:48 01/01/25 05:48 Labs: Laboratory Results - last 24 hr 01/01/25 05:48: WBC 2.7 L, RBC 3.47 L, Hgb 10.2 L, Hct 33.1 L, MCV 95.4, MCH 29.4, MCHC 30.8 L, RDW Std Deviation 60.2 H, RDW Coeff of Blas 17.7 H, Plt Count 69 L, MPV 9.0, Immature Gran % (Auto) 1.500 H, Neut % (Auto) 72.3 H, Lymph % (Auto) 20.3, [place] % (Auto) 5.5, Eos % (Auto) 0.0, Baso % (Auto) 0.4, Absolute Neuts (auto) 2.0, Absolute Lymphs (auto) 0.55 L, Nucleated RBC % 0, Diff Path Review February, Platelet Estimate MOD DEC, Sodium 143, Potassium 3.7, Chloride 98, Carbon Dioxide 35.9 H, Anion Gap 8, BUN 15, Creatinine 0.88, Estim Creat Clear Calc 61.78, Est GFR (MDRD) Non-Af 75, BUN/Creatinine Ratio 16.6, Glucose 122 H, Calcium 7.4 L, Phosphorus 3.4, Magnesium 1.4 L, Total Bilirubin 2.97 H, AST 55 H, ALT 26, Alkaline Phosphatase 217 H, Total Protein 7.2, Albumin 2.3 L, Globulin 5.0 H, Albumin/Globulin Ratio 0.5 L Micro: Microbiology 12/31/24 12:10 Urine, Clean Catch Legionella Antigen - Final 12/31/24 12:10 Urine, Clean Catch Streptococcus pneumoniae Antigen (M - Final 12/31/24 11:25 Mucosa - Nasopharyngeal SARS-CoV-2, Influenza & RSV (PCR) - Final Influenzae A 12/30/24 14:25 Sputum, Expectorated/Coughed Gram Stain - Final 12/30/24 14:25 Sputum, Expectorated/Coughed Respiratory Culture - Preliminary Gram negative melany Radiography Diagnostic Testing: Radiology Impression Abdomen Ultrasound 12/31/24 22:43 IMPRESSION: No visualized ascites. Reading Location: [facility] Physical Exam Const alert and no apparent distress Constitutional Narrative: Sitting in bedside recliner. General Appearance: cooperative HEENT normocephalic, head/scalp atraumatic and moist oral mucous membranes Eyes EOMs intact bilaterally and conjunctivae normal Neck supple General: trachea midline Chest inspection of chest normal Resp normal respiratory effort Auscultation: diminished lung sounds; Negative for rales, rhonchi or wheezes Cardio regular rate and regular rhythm GI normal to inspection, nondistended, normoactive bowel sounds Extremity no clubbing, cyanosis or edema Skin no rashes or lesions noted Neuro CN's II-XII intact bilaterally, moves all extremities and no focal motor deficits Psych Mood & Affect: flat affect Charges/Coding Visit Charges Inpatient E&M: 60191 Subs Hosp L2
[2025-01-01 07:47] LABS: Vancomycin, Trough Level 31.3 ug/mL (5.0-15.0)
[2025-01-01] MEDS: Ipratropium/Albuterol Sulfate 3 ML AMPUL.NEB INHALATION ×2 (07:51→20:25)
--- NOTE | 2025-01-01 08:17 | PN.HOSP_ITS ---
Reason for Visit Reason for Visit: Diagnoses Acute and chronic respiratory failure with hypoxia (12/30/24) Acute and chronic respiratory failure with hypercapnia (12/30/24) Subjective Subjective Patient seen much more awake and interactive compared to previous day. Patient has been weaned off noninvasive ventilation currently remains on supplemental oxygen 2 L Objective Data Objective Data Vital Signs: Vital Signs Temp Pulse Resp BP Pulse Ox O2 Del Method O2 Flow Rate 97.0 F L 87 16 106/58 L 100 Nasal Cannula 3 01/01/25 02:00 01/01/25 07:52 01/01/25 07:52 01/01/25 02:00 01/01/25 07:52 01/01/25 07:52 01/01/25 07:52 FiO2 30 01/01/25 05:30 Oxygen Flow Rate (L/min) 3 Oxygen Delivery Method Nasal Cannula Weight: 75.9 kg Body Mass Index (BMI) 31.6 Intake & Output: Intake and Output for Last 24 Hours 12/30/24 12/31/24 01/01/25 23:59 23:59 23:59 Intake Total 630 / 630 1899.50 / 1899.50 410 / 410 Output Total 0 / 1000 4750 / 4750 600 / 600 Balance 630 / -370 -2850.50 / -2850.50 -190 / -190 Lab / Micro Data 01/01/25 05:48 01/01/25 05:48 Labs: Laboratory Results - last 24 hr 01/01/25 05:48: WBC 2.7 L, RBC 3.47 L, Hgb 10.2 L, Hct 33.1 L, MCV 95.4, MCH 29.4, MCHC 30.8 L, RDW Std Deviation 60.2 H, RDW Coeff of Blas 17.7 H, Plt Count 69 L, MPV 9.0, Immature Gran % (Auto) 1.500 H, Neut % (Auto) 72.3 H, Lymph % (Auto) 20.3, [place] % (Auto) 5.5, Eos % (Auto) 0.0, Baso % (Auto) 0.4, Absolute Neuts (auto) 2.0, Absolute Lymphs (auto) 0.55 L, Nucleated RBC % 0, Diff Path Review May , Platelet Estimate MOD DEC, Sodium 143, Potassium 3.7, Chloride 98, Carbon Dioxide 35.9 H, Anion Gap 8, BUN 15, Creatinine 0.88, Estim Creat Clear Calc 61.78, Est GFR (MDRD) Non-Af 75, BUN/Creatinine Ratio 16.6, Glucose 122 H, Calcium 7.4 L, Phosphorus 3.4, Magnesium 1.4 L, Total Bilirubin 2.97 H, A ST 55 H, ALT 26, Alkaline Phosphatase 217 H, Total Protein 7.2, Albumin 2.3 L, G lobulin 5.0 H, Albumin/Globulin Ratio 0.5 L, Vancomycin Trough 31.3 H Micro: Microbiology 12/30/24 14:25 Sputum, Expectorated/Coughed Gram Stain - Final 12/30/24 14:25 Sputum, Expectorated/Coughed Respiratory Culture - Preliminary Enterobacter spp. 12/31/24 12:10 Urine, Clean Catch Legionella Antigen - Final 12/31/24 12:10 Urine, Clean Catch Streptococcus pneumoniae Antigen (M - Final 12/31/24 11:25 Mucosa - Nasopharyngeal SARS-CoV-2, Influenza & RSV (PCR) - Final Influenzae A Radiography Diagnostic Testing: Radiology Impression Abdomen Ultrasound 12/31/24 22:43 IMPRESSION: No visualized ascites. Reading Location: [facility] Physical Exam Narrative GENERAL: Patient appears ill looking HEENT: Atraumatic; normocephalic EYES; Anicteric, Normal Conjunctiva NECK; supple, normal thyroid, RESPIRATORY: Diminished to auscultation CARDIOVASCULAR: Regular S1 S2, GI: soft, normoactive bowel sounds, : No Renal angle tenderness; EXTREMITIES: adelso edema, no clubbing, MUSCULOSKELETAL: no muscle wasting NEURO: Awake; no lateralizing signs. SKIN: No Rash PSYCH; Flat affect Assessment & Plan Assessment/Plan (1) Acute on chronic respiratory failure with hypoxia and hypercapnia: PLAN: Plan Patient is a 64-year-old female who presented [facility] ED on 12/30/2024 with worsening shortness of breath. 1. Acute on chronic hypoxic and hypercapnic respiratory failure secondary to influenza A infection ?Imaging studies obtained on admission demonstrated bilateral infiltrates. Patient admitted to the intensive care unit placed on noninvasive ventilation via BiPAP. Patient was deemed to be outside the window for Tamiflu. Patient was however started on broad-spectrum antibiotic therapy with piperacillin/tazobactam and vancomycin for suspected superimposed pneumonia. Consult placed to code clerk ? 01/01/2025Patient seen much more awake and interactive compared to previous day. Patient has been weaned off noninvasive ventilation currently remains on supplemental oxygen 2 L 2. Nonalcoholic fatty liver disease with complications including cirrhosis with ascites and esophageal varices ? With previous TIPS procedure. Patient has frequent paracentesis as outpatient and is followed by Dr. Estrada with GI. Patient is on lactulose did continue with home dose. Patient is on torsemide and Aldactone continued 3. Pancytopenia ? Secondary to chronic liver disease monitoring count with daily CBC with differential 4. Hypocalcemia secondary to severe hypoalbuminemia 5. Hypoalbuminemia ? Suspected to be secondary to protein calorie malnutrition as a result of decreased oral intake decreased energy level as well as multiple medical comorbidities consult placed to dietitian 6. Class I obesity with BMI of 32 ? Complicating care weight loss advised 7. Physical deconditioning ? Requested for PT OT eval and oncology social worker to assist with discharge planning 8. DVT prophylaxis ? On enoxaparin Time spent in the patient's overall evaluation,decision-making process, review of diagnostic data, adjustment of management, discussion with other providers, nursing nursing and ancillary staff involved in patient's care documentation, 50 Minutes Charges/Coding Visit Charges Inpatient E&M: 58439 Subs Hosp L3
--- NOTE | 2025-01-01 08:24 | PCM.RX.CS ---
Consult Antibiotic Management Pharmacy has been consulted to manage selected antibiotic: Vancomycin Type of Intervention Type of Consult: Follow-up Labs Labs: Sodium 143 mmol/L (133-145) 01/01/25 05:48 Potassium 3.7 mmol/L (3.3-5.1) 01/01/25 05:48 Chloride 98 mmol/L (98-108) 01/01/25 05:48 Carbon Dioxide 35.9 mmol/L (21.0-32.0) H 01/01/25 05:48 Anion Gap 8 (5-15) 01/01/25 05:48 BUN 15 mg/dL (4-19) 01/01/25 05:48 Creatinine 0.88 mg/dL (0.70-1.20) 01/01/25 05:48 Est GFR (MDRD) Non-Af 75 (>60) 01/01/25 05:48 BUN/Creatinine Ratio 16.6 RATIO (10-20) 01/01/25 05:48 Glucose 122 mg/dL (70-99) H 01/01/25 05:48 Vancomycin Trough 31.3 ug/mL (5.0-15.0) H 01/01/25 05:48 Microbiology Microbiology: Microbiology 12/30/24 14:25 Sputum, Expectorated/Coughed Gram Stain - Final 12/30/24 14:25 Sputum, Expectorated/Coughed Respiratory Culture - Preliminary Enterobacter spp. 12/31/24 12:10 Urine, Clean Catch Legionella Antigen - Final 12/31/24 12:10 Urine, Clean Catch Streptococcus pneumoniae Antigen (M - Final 12/31/24 11:25 Mucosa - Nasopharyngeal SARS-CoV-2, Influenza & RSV (PCR) - Final Influenzae A Goal Trough Goal Trough: 15-20 mcg/mL Pharmacy Plan for Drug Dosing Pharmacy Plan for Drug Dosing: VANCOMYCIN LEVEL RECEIVED Current Vancomycin Dose: 1500mg IV Q12h Number of Doses Received: 3 (ED dose + 2 scheduled) Vancomycin Level: 31.3 Hours Since Last Dose: 11.75hr Renal Function: 0.88 Renal Function Trend: stable Vancomycin Plan/Comments: Patient had a level drawn which resulted in a value of 31.3 (goal 15-20). Patient's level is supratherapeutic. Will hold vancomycin and recheck a level with AM labs tomorrow. Will resume vancomycin once trough is <20. Pending Level: *RANDOM* level 01/02/25 @0600 Pharmacy Service will continue to monitor and adjust dosing as required.
[2025-01-01] MEDS: Enoxaparin 40 MG/0.4 ML Syringe SC (09:14)
[2025-01-01] MEDS: Senna Tablet 2 TABLET PO (09:14)
[2025-01-01] MEDS: Spironolactone 50 MG Tablet 100 MG PO (09:14)
[2025-01-01] MEDS: Torsemide 20 MG Tablet 40 MG PO ×2 (09:15→17:19)
--- NOTE | 2025-01-01 12:38 | CASEMGMT ---
SHEBA PEÑA into pt room with Ipad hourly sign language interpreter. Locks Inspector ID is [id number]- Lizette. Pt would not answer questions when hourly sign language interpreter asked. Pt just looked at the RN MARIANA and ipad. Asked if pt would like this SHEBA PEÑA to call her dtr, pt agreed.
--- NOTE | 2025-01-01 14:22 | CASEMGMT ---
1410-TC to pt dtr, she states she is in room now. SHEBA PEÑA to meet her in room. SHEBA PEÑA Assessment: RN MARIANA introduced self and role at [facility], pt dtr voices understanding and consents to assessment. Care providers, pharmacy, and demographics verified/updated. Admitting Dx: influenza A with acute resp failure Strata Score: 3 PCP:[place] Specialists:Friend, GI; Agueda, liver specialist Preferred Pharmacy: [facility] Insurance: Self pay Prescription Benefit: no LNOK: Denise Sullivan, dtr; Jagdish Stone, son Living Arrangements: Pt lives with in a two story home with 2 steps to enter. Pt dtr reports that she is present most of the time but does not live there. She assists pt in all ADL/IADLs since her TIPS procedure last year. Transportation: Pt dtr transports pt to medical appts. DME:pox, oxygen through [employer] with portable tanks- dtr will bring in at dc, grab bars in the bathroom, shower chair, walker, w/c HHC/SNF: Denies hx of Pt dtr states no concerns with going home at time of dc. She declines any homegoing services d/t pt not having insurance. Pt dtr states no further concerns/needs. CM to follow. Advised pt dtr to ask CM if any further questions/concerns/needs arise, voices understanding. Pt Dtr Goal: Home Plan: Home, follow for increased oxygen rx Racheal SCRUGGS CM
--- NOTE | 2025-01-01 21:19 | PCM.HOSP.N ---
Hospitalist Note Rapid response note: Patient with onset of significant respiratory distress, tachypnea, increased work of breathing, mild lethargy and less responsiveness. Patient with significant decreased breath sounds bilaterally with evidence of respiratory distress with tachypnea, accessory muscle usage, less interactiveness but slowly did improve during evaluation. ABG has been requested, EKG with sinus rhythm with no acute evidence of ischemia, chest x-ray also requested. 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
--- NOTE | 2025-01-01 21:20 | RAD_ITS ---
PROCEDURE: CHEST 1 VIEW (PORTABLE) REASON FOR EXAM: Shortness of breath TECHNIQUE: Frontal view of the chest. COMPARISON: Chest radiograph dated 12/30/2024 FINDINGS: Heart size is stable. Elevated right hemidiaphragm with volume loss of the right lung. Bilateral patchy airspace opacities. No pneumothorax. The bones are unremarkable. RAD/Chest 1 View (Portable) IMPRESSION: No significant interval change when compared with the prior study. Reading Location: [facility]
[2025-01-01 21:25] LABS: Base Excess 19 mmol/L (-2 to +2); Bicarbonate 41.7 mmol/L (22-26); Blood Gas Specimen Type ART; Mode Not entered; O2 Delivery Device Cannula; PO2 48 mmHG (75-100); SITE R Radial; SO2 86 % (95-99); Total Carbon Dioxide 43 mmol/L; pCO2 52.1 mmHg (35-45); pH 7.51 (7.35-7.45)
--- NOTE | 2025-01-01 21:30 | NURSING ---
Upon this RN entering patient's room, it was observed that RT Rick was placing the patient on QHS Bipap, since patient was sleeping when RT Rick entered. Patient was tachypneic with RR between 35-50/min on BIPAP 30%. Patient was moaning with exhale, and would not answer any questions for this RN, or for daughter. Patient not following commands. Patient removed from BIPAP, and placed back on baseline 2L NC. Patient's SpO2 remained greater than 90% during event. This RN asked PCU Charge Alfred for help in the room, and initiated a Rapid Response following patient's HR increased from ~90-100 up to 190 bpm for less than 10 seconds before returning to NSR/ST. Dr. Almodovar Arrived to assess patient at bedside. Glucose of 115 recorded. STAT EKG performed --NSR. ABG collected by RT. CXR/KUB ordered for patient. CXR was completed in PCU department before patient transported to ICU Rm #5 for continued care. Bedside Report given to SHEBA Guido.
--- NOTE | 2025-01-01 21:45 | RAD_ITS ---
PROCEDURE: ABDOMEN SINGLE VIEW (PORTABLE) REASON FOR EXAM: Pain evaluate for small bowel obstruction. TECHNIQUE: Single view abdomen. COMPARISON: CT of the abdomen and pelvis dated 07/06/2024 FINDINGS: Gas-filled bowel loops. No dilatation is demonstrated. Nasogastric tube terminates within the stomach. No suspicious calcifications. The bones are unremarkable. RAD/Abdomen Single View (Portable) IMPRESSION: Gas-filled bowel loops. This may represent ileus. Underlying obstruction can not be completely excluded. Reading Location: [facility]
[2025-01-01 21:54] LABS: Bedside Glucose 115 mg/dL (74-106)
--- NOTE | 2025-01-01 22:08 | CON.PCM.CC_ITS ---
HPI Consult Data Date of Consult: 01/01/25 HPI Narrative Reason for Consultation: Respiratory distress, acute encephalopathy HPI Narrative: KIERRA FOSTER, is a 64yo who was just discharged from the ICU today, who had rapid response after being found less responsive and with respiratory distress. Patient feels better now, but daughter at bedside still reports patient's mentation and clinical appearance appear worse from earlier today. Patient unable to vocalize much and only minimally participatory but denies SOB and pain. Orientation is questionable. LOC is decreased, but patient is rousable. Therefore, HPI is gathered from onsite staff and collateral sources including hospitalist and EMR. During rapid, patient placed on NIPPV. CXR done after NIPPV and showing some insufflation. ABG returned alkalotic and NIPPV DC'd. NG placed and on LIS. Patient now feels mejor. Reider at bedside reports h/o cirrhosis and TIPS procedure. Denies CHF and renal disease. [facility] Medical History Uses wheelchair Non-smoker Tuberculosis Wears glasses Walker as ambulation aid Jaundice Difficulty swallowing Nausea S/P abdominal paracentesis Loss of consciousness Chronic cough On home oxygen therapy Shortness of breath on exertion Chronic anemia Peripheral edema Abdominal ascites Emphysema lung Hypoxia Lung bullae Lactic acidosis Appendicitis Cholecystitis Bronchitis Home Medications ?Medication ?Instructions ?Recorded ?Last Taken ?Type spironolactone 100 mg tablet 200 mg PO DAILY 04/17/24 Unknown History torsemide 20 mg tablet 40 mg PO BID 04/17/24 Unknow n History albuterol sulfate 2.5 mg/3 mL 2.5 mg continuous nebuli zation BID 12/30/24 Unknown History (0.083 %) solution for nebulization lactulose 10 gram/15 mL oral 30 ml PO TID 12/30/24 Unk nown History solution midodrine 10 mg tablet 20 mg PO Q6H 12/30/24 Unknow n History polyethylene glycol 3350 17 17 g PO BID 12/30/24 Unkno wn History gram/dose oral powder (ClearLax) sennosides 8.6 mg capsule (senna) 17.2 mg PO BID 12/30 Unknown History Allergy/AdvReac Type Severity Reaction Status Date / Time No Known Allergies Allergy Verified 12/30/24 11:53 Surgical History S/P laparoscopic cholecystectomy Social History Smoking Status: Never smoker alcohol intake: never substance use type: does not use ROS Review of Systems ROS Unobtainable: due to mental status Objective Data Objective Data Vital Signs: Vital Signs Last response 3 Temperature 36.4 C L 01/01/25 18:10 Temperature Source Oral 01/01/25 18:10 Pulse Rate 99 01/01/25 21:10 Pulse Strength Normal (2+) 01/01/25 10:00 Respiratory Rate 34 H 01/01/25 21:10 Respiratory Effort Short of Breath, Labored, Accessory Muscle Use, Head Bobbing 01/01/25 21:00 Respiratory Depth Shallow 01/01/25 21:00 Respiratory Pattern Tachypnea 01/01/25 21:10 Blood Pressure 115/77 01/01/25 18:10 Blood Pressure Mean 89 01/01/25 18:10 Blood Pressure Source Monitor 01/01/25 18:10 Blood Pressure Position Semi-Fowlers 01/01/25 18:10 Blood Pressure Location Right Forearm 01/01/25 18:10 Pulse Ox 96 01/01/25 21:10 Oxygen Delivery Method Nasal Cannula 01/01/25 21:00 Oxygen Flow Rate (L/min) 2 01/01/25 21:00 Fraction of Inspired Oxygen (FIO2) 30 01/01/25 21:10 I&O: I&O Last 24 Hours 3 12/31/24 01/01/25 01/01/25 23:59 11:59 23:59 Intake Total 1040.00 / 1899.50 460 / 630 170 / 630 Output Total 1700 / 4750 600 / 600 0 / 600 Balance -660.00 / -2850.50 -140 / 30 170 / 30 I&O: Total Stay 3 12/30/24 11:49 thru 01/01/25 20:00 Intake Total 3159.50 Output Total 5350 Balance -2190.50 Current Meds Ordered / Administered: Current meds ordered / Administered 3 Generic Name Dose Route Start Last Admin Trade Name Freq PRN Reason Stop Dose Admin Acetaminophen 650 mg 12/30/24 20:30 Acetaminophen 325 Mg Tablet PO Q6H PRN PRN Pain 1-10 Or Fever>100.7 Albuterol/Ipratropium 3 ml 12/30/24 20:30 01/01/25 20:25 Ipratropium/Albuterol Sulfate 3 Ml Ampul.Neb INHALATION 3 ml Q4HWA.RT DILIA Administration Enoxaparin Sodium 40 mg 12/31/24 10:00 01/01/25 09:14 Enoxaparin 40 Mg/0.4 Ml Syringe SC 40 mg DAILY DILIA Administration Vancomycin IV-PHARMACY TO DOSE 500 mls @ 250 mls/hr 12/30/24 20:30 1 each/ Sodium Chloride IV PRN PRN Rx to Dose Protocol Piperacillin Sod/Tazobactam 50 mls @ 12.5 mls/hr 12/30/24 22:00 01/01/25 17:46 Sod 3.375 gm/ Sodium Chloride IV Infused Q8 DILIA Infusion Sodium Chloride 100 mls @ 15 mls/hr 12/30/24 20:46 12/31/24 11:57 IV Infused .Q6H40M PRN Infusion Saline Flush Sodium Chloride 100 mls @ 15 mls/hr 12/30/24 20:46 IV .Q6H40M PRN Additional IVPB Infusion Lactulose 20 gm 12/30/24 22:00 01/01/25 13:21 Lactulose 20 Gm/30 Ml Udc PO 20 gm TID DILIA Administration Magnesium Chloride 128 mg 01/01/25 22:00 Magnesium Chloride 64 Mg Delay Rel.Tablet PO BID [facility] Melatonin 3 mg 12/30/24 20:30 Melatonin 3 Mg Tablet PO QHS PRN PRN INSOMNIA Methylprednisolone Sodium Succinate 40 mg 01/01/25 22:00 Methylprednisolone Sod Succ 40 Mg/Ml Vial IV Q8 [facility] Midodrine 20 mg 12/30/24 20:30 01/01/25 17:20 Midodrine Hcl 5 Mg Tablet PO Not Given Q6 [facility] Ondansetron HCl 4 mg 12/30/24 20:30 Ondansetron 4 Mg/2 Ml Vial IV Q8H PRN PRN NAUSEA/VOMITING Phenol/Menthol 5 spray 01/01/25 20:16 Phenol/Sodium Phenolate 180ml MUCOUS MEM Q2H PRN PRN SORE THROAT Polyethylene Glycol 17 gm 12/30/24 22:00 01/01/25 09:26 Polyethylene Glycol 3350 17 Gm Packet PO Not Given BID [facility] Senna 2 tablet 12/30/24 22:00 01/01/25 09:14 Senna Tablet PO 2 tablet BID DILIA Administration Sodium Chloride 10 - 40 ml 12/30/24 20:46 12/30/24 21:55 0.9% Saline Lock 10 Ml Syringe IV 20 ml UD PRN Administration SALINE FLUSH Spironolactone 100 mg 12/30/24 22:00 01/01/25 09:14 Spironolactone 50 Mg Tablet PO 100 mg BID DILIA Administration Torsemide 40 mg 12/30/24 22:00 01/01/25 17:19 Torsemide 20 Mg Tablet PO 40 mg BIDLX DILIA Administration Vancomycin Protocol 1 lab 01/02/25 04:00 Vancomycin Trough/Random Due MC 01/02/25 08:00 DAILY DILIA Physical Exam Const Constitutional Narrative: Not jaundiced appearing, but furrowed brow and uncomfortable Weak and frail, eyes closed and not answering questions consistentyl General Appearance: ill appearing and frail HEENT normocephalic and head/scalp atraumatic HEENT Narrative: dry membranes Eyes no scleral icterus Neck no JVD Chest inspection of chest normal Resp normal respiratory effort and no use of accessory muscles Resp Narrative: diminished bilateral sounds Cardio regular rate and regular rhythm GI soft to palpation and non-tender Back/Spine no CVA tenderness Extremity no clubbing, cyanosis or edema Skin no rashes or lesions noted Neuro no focal motor deficits Neuro Narrative: lethargic/sluggish neuromotor responses Lab / Micro Data 01/01/25 05:48 01/01/25 05:48 Labs: Laboratory Results - last 24 hr 01/01/25 05:48: WBC 2.7 L, RBC 3.47 L, Hgb 10.2 L, Hct 33.1 L, MCV 95.4, MCH 29.4, MCHC 30.8 L, RDW Std Deviation 60.2 H, RDW Coeff of Blas 17.7 H, Plt Count 69 L, MPV 9.0, Immature Gran % (Auto) 1.500 H, Neut % (Auto) 72.3 H, Lymph % (Auto) 20.3, Will % (Auto) 5.5, Eos % (Auto) 0.0, Baso % (Auto) 0.4, Absolute Neuts (auto) 2.0, Absolute Lymphs (auto) 0.55 L, Nucleated RBC % 0, Diff Path Review May foll, Platelet Estimate MOD DEC, Sodium 143, Potassium 3.7, Chloride 98, Carbon Dioxide 35.9 H, Anion Gap 8, BUN 15, Creatinine 0.88, Estim Creat Clear Calc 61.78, Est GFR (MDRD) Non-Af 75, BUN/Creatinine Ratio 16.6, Glucose 122 H, Calcium 7.4 L, Phosphorus 3.4, Magnesium 1.4 L, Total Bilirubin 2.97 H, A ST 55 H, ALT 26, Alkaline Phosphatase 217 H, Total Protein 7.2, Albumin 2.3 L, G lobulin 5.0 H, Albumin/Globulin Ratio 0.5 L, Vancomycin Trough 31.3 H 01/01/25 21:07: POC Glucose 115 H Micro: Microbiology 12/30/24 14:25 Sputum, Expectorated/Coughed Gram Stain - Final 12/30/24 14:25 Sputum, Expectorated/Coughed Respiratory Culture - Preliminary Enterobacter spp. ABG Data ABG results: ABG 01/01/25 21:22 Specimen Type ART Sample Site R Radial pH 7.51 H Bicarbonate Actual 41.7 H Total CO2 43 Base Excess 19 H O2 Saturation 86 L O2 % 2.0 ABG pCO2 52.1 H ABG pO2 48 L Charles Test N/A O2 Delivery Device Cannula Vent Mode Not entered Imaging CXR and KUb reviewed personally- gastric and colonic insufflation. Assessment and Plan . Assessment and plan: ICU Problem LIst: acute metabolic encephalopathy liver cirrhosis, possible hepatic encephalopathy Plan: Doppler Liver r/o thrombus of portal vein/TIPS malfunction CMP and CBC/D now LA and Ammonia level now NGT to LIS Grade 1 HE- no indication yet to protect airway but aspiration precautions Travon Solitario MD [facility] Critical Care Time: 60 minutes The entirety of this encounter was done via Telemedicine
[2025-01-01] MEDS: 0.9% Normal Saline (100mL Bag) 100 ML 15 ML IV (22:38)
[2025-01-01 22:47] LABS: Absolute Lymphocyte Count 0.61 X10^3/uL (0.83-4.51); Absolute Neutrophil Count 3.9 X10^3/uL (2.0-7.7); Basophil# 0.01 X10^3/uL; Basophil% 0.2 % (0-1); Hematocrit 33.1 % (37-47); Hemoglobin 10.2 g/dL (12.0-15.0); Lymphocyte # 0.61 X10^3/ul (0.83-4.51); Lymphocyte % 11.6 % (19-41); Mean Corp Hgb Conc 30.8 g/dL (32-36); Mean Corpuscular Hgb 28.7 pg (27.0-32.0); Mean Platelet Vol. 10.2 fl (6.2-12.0); Monocyte# 0.72 X10^3/uL; Monocyte% 13.7 % (0-10); NRBC Flagged by Analyzer 0 % (0-5); Neutrophil # 3.89 X10^3/uL (2.7-7.7); Neutrophil % 73.9 % (47-70); POSITIVE COUNT YES; RBC Distribution Width SD 60.2 fl (35.1-43.9); Red Blood Count 3.56 M/mm3 (4.2-5.4); White Blood Count 5.3 K/mm3 (4.4-11.0)
[2025-01-01 22:59] LABS: Platelet Count 74 K/mm3 (150-450)
[2025-01-01 23:04] LABS: ALB/GLOB Ratio 0.5 RATIO (0.9-2.4); AST(SGOT) 56 U/L (<=31); Alanine Aminotransfer ALT/SGPT 24 U/L (<=34); Albumin, Serum 2.3 g/dL (3.4-4.8); Alkaline Phosphatase 209 U/L (35-104); Anion Gap 9 (5-15); BUN 19 mg/dL (4-19); BUN/Creat Ratio 17.7 RATIO (10-20); Calcium,Total 7.4 mg/dL (7.6-11.0); Carbon Dioxide 36.6 mmol/L (21.0-32.0); Chloride 98 mmol/L (98-108); Creatinine, Serum 1.05 mg/dL (0.70-1.20); EST Glomerular Filtration Rate 60 (>60); Estimated Creatinine Clearance 51.78 ml/min (50-250); Globulin 4.9 g/dL (2.2-4.2); Glucose 129 mg/dL (70-99); Potassium 3.6 mmol/L (3.3-5.1); Protein, Total 7.3 g/dL (5.9-8.4); Sodium Level 144 mmol/L (133-145); Total Bilirubin 2.86 mg/dL (0.00-1.30)
[2025-01-01 23:10] LABS: Lactic Acid 2.2 mmol/L (0.0-2.0)
[2025-01-01] MEDS: Methylprednisolone Sod Succ 40 MG/ML VIAL IV (23:27)
[2025-01-01] MEDS: Pantoprazole Sodium 40 MG in 0.9% Normal Saline (100mL MB+) 100 ML 330 MG IV (23:27)
[2025-01-01] MEDS: Morphine 2 MG/ML Syringe IV (23:29)
[2025-01-01] MEDS: 0.9% Normal Saline (1000mL) 1,000 ML 100 ML IV (23:29)
[2025-01-02] VITALS (26 sets, daily range): BP systolic 95–115; BP diastolic 56–73; PULSE 91–111; RESP 9–24; TEMP 35.6–36.6; O2SAT 94–100; BMI 30.2
--- NOTE | 2025-01-02 02:50 | RAD_ITS ---
PROCEDURE: ABDOMEN SINGLE VIEW (PORTABLE) REASON FOR EXAM: Small-bowel obstruction TECHNIQUE: Single view abdomen. 2 total supine images to include the entire abdomen and pelvis COMPARISON: 01/01/2025 at 21:40 FINDINGS: Gaseous distention of bowel in the upper and mid abdomen not significantly changed in appearance with gaseous prominence of the proximal and transverse colon to the splenic flexure. Overall the bowel gas pattern is not significantly changed and may represent ileus with a distal obstructing process not entirely excluded. Nasogastric tube again identified with tip again at the area of the distal stomach. TIPS shunt and embolization coil material right upper quadrant again seen. Coarse irregular opacities at the visualized right base with a bubbly appearance may represent chronic changes and possible very small effusion. Patchy ill-defined opacities at the visualized left base may be inflammatory/infectious with possible aspiration not excluded. RAD/Abdomen Single View (Portable) IMPRESSION: Gaseous distention of bowel in the upper and mid abdomen not significantly tolentino ged in appearance with gaseous prominence of the proximal and transverse colon to the splenic flexure. Overall the bowel gas pat tern is not significantly changed and may represent ileus with a distal obstructing process not entirely excluded, clinic ally correlate.. Reading Location: [id number]
[2025-01-02] MEDS: Vancomycin Trough/Random Due 1 LAB MC (04:00)
[2025-01-02 04:15] LABS: Absolute Lymphocyte Count 0.43 X10^3/uL (0.83-4.51); Absolute Neutrophil Count 3.6 X10^3/uL (2.0-7.7); Basophil# 0.01 X10^3/uL; Basophil% 0.2 % (0-1); Hematocrit 31.8 % (37-47); Hemoglobin 9.9 g/dL (12.0-15.0); Lymphocyte # 0.43 X10^3/ul (0.83-4.51); Lymphocyte % 9.9 % (19-41); Mean Corp Hgb Conc 31.1 g/dL (32-36); Mean Corpuscular Hgb 28.9 pg (27.0-32.0); Mean Platelet Vol. 9.3 fl (6.2-12.0); Monocyte% 6.9 % (0-10); NRBC Flagged by Analyzer 0 % (0-5); Neutrophil # 3.57 X10^3/uL (2.7-7.7); Neutrophil % 81.9 % (47-70); POSITIVE COUNT YES; POSITIVE DIFFERENTIAL YES; Platelet Count 64 K/mm3 (150-450); RBC Distribution Width CV 18.1 % (11.6-14.6); RBC Distribution Width SD 61.3 fl (35.1-43.9); Red Blood Count 3.42 M/mm3 (4.2-5.4); White Blood Count 4.4 K/mm3 (4.4-11.0)
[2025-01-02 05:38] LABS: Vancomycin, Random Level 17.4 ug/mL (0.0-15.0)
[2025-01-02] MEDS: Piperacil/Tazobactam 3.375 GM in 0.9% Normal Saline (50mL MB+) 50 ML IV ×3 (06:03→20:45)
[2025-01-02] MEDS: Methylprednisolone Sod Succ 40 MG/ML VIAL IV ×3 (06:06→20:44)
--- NOTE | 2025-01-02 06:11 | PCM.RX.CS ---
Consult Antibiotic Management Pharmacy has been consulted to manage selected antibiotic: Vancomycin Type of Intervention Type of Consult: Follow-up Labs Labs: Vancomycin Trough 31.3 ug/mL (5.0-15.0) H 01/01/25 05:48 Random Vancomycin 17.4 ug/mL (0.0-15.0) H 01/02/25 04:05 Microbiology Microbiology: Microbiology 12/30/24 14:25 Sputum, Expectorated/Coughed Gram Stain - Final 12/30/24 14:25 Sputum, Expectorated/Coughed Respiratory Culture - Preliminary Enterobacter spp. 12/31/24 12:10 Urine, Clean Catch Legionella Antigen - Final 12/31/24 12:10 Urine, Clean Catch Streptococcus pneumoniae Antigen (M - Final 12/31/24 11:25 Mucosa - Nasopharyngeal SARS-CoV-2, Influenza & RSV (PCR) - Final Influenzae A Goal Trough Goal Trough: 15-20 mcg/mL Pharmacy Plan for Drug Dosing Pharmacy Plan for Drug Dosing: Pharmacy Service will continue to monitor and adjust dosing as required. RANDOM LEVEL 17.4. START 750MG Q12H AND DRAW TROUGH PRIOR TO 4TH DOSE Follow-Up Labs Follow-Up Labs: Trough: Vancomycin Date/Time Labs Ordered Labs to be done on [date and time ordered]: 01/03 @ 8722
[2025-01-02 06:50] LABS: ALB/GLOB Ratio 0.4 RATIO (0.9-2.4); AST(SGOT) 63 U/L (<=31); Alanine Aminotransfer ALT/SGPT 26 U/L (<=34); Albumin, Serum 2.2 g/dL (3.4-4.8); Alkaline Phosphatase 194 U/L (35-104); BUN 20 mg/dL (4-19); BUN/Creat Ratio 19.9 RATIO (10-20); Calcium,Total 7.3 mg/dL (7.6-11.0); Carbon Dioxide 35.4 mmol/L (21.0-32.0); Creatinine, Serum 1.01 mg/dL (0.70-1.20); EST Glomerular Filtration Rate 63 (>60); Estimated Creatinine Clearance 52.59 ml/min (50-250); Glucose 132 mg/dL (70-99); Protein, Total 7.2 g/dL (5.9-8.4); Total Bilirubin 2.79 mg/dL (0.00-1.30)
[2025-01-02 06:52] LABS: Anion Gap 11 (5-15); Chloride 99 mmol/L (98-108); Potassium 3.7 mmol/L (3.3-5.1); Sodium Level 145 mmol/L (133-145)
[2025-01-02] MEDS: Ipratropium/Albuterol Sulfate 3 ML AMPUL.NEB INHALATION ×3 (07:23→20:00)
--- NOTE | 2025-01-02 07:29 | PCM.PN.HOSP ---
Reason for Visit Reason for Visit: Diagnoses Acute and chronic respiratory failure with hypoxia (12/30/24) Acute and chronic respiratory failure with hypercapnia (12/30/24) Subjective Subjective Patient had been transferred to the progressive care unit following stabilization of her clinical condition she was however found to be barely responsive with increased work of breathing. Patient was transferred back to the intensive care unit. Chest x-ray demonstrated elevated right hemidiaphragm with volume loss involving the right lung as well as bilateral patchy airspace opacities. Patient was also found to have distended loops of bowel. In this a.m. patient appears much more comfortable and communicative. Interview was conducted in the presence of patient's daughter Objective Data Objective Data Vital Signs: Vital Signs Temp Pulse Resp BP Pulse Ox O2 Del Method O2 Flow Rate 97.9 F 94 13 95/69 100 Nasal Cannula 2 01/02/25 04:00 01/02/25 06:00 01/02/25 06:00 01/02/25 06:00 01/02/25 06:00 01/02/25 06:00 01/02/25 06:00 FiO2 30 01/01/25 21:10 Oxygen Flow Rate (L/min) 2 Oxygen Delivery Method Nasal Cannula Weight: 72.5 kg Body Mass Index (BMI) 30.2 Intake & Output: Intake and Output for Last 24 Hours 12/31/24 01/01/25 01/02/25 23:59 23:59 23:59 Intake Total 1899.50 / 1899.50 740 / 740 50 / 50 Output Total 4750 / 4750 600 / 600 Balance -2850.50 / -2850.50 140 / 140 50 / 50 Lab / Micro Data 01/02/25 04:05 01/02/25 04:05 Labs: Laboratory Results - last 24 hr 01/01/25 05:48: Diff Path Review February kady, Platelet Estimate MOD DEC, Vancomycin Trough 31.3 H 01/01/25 21:07: POC Glucose 115 H 01/01/25 22:30: WBC 5.3, RBC 3.56 L, Hgb 10.2 L, Hct 33.1 L, MCV 93.0, MCH 28.7, MCHC 30.8 L, RDW Std Deviation 60.2 H, RDW Coeff of Blas 18.0 H, Plt Count 74 L, MPV 10.2, Immature Gran % (Auto) 0.600, Neut % (Auto) 73.9 H, Lymph % (Auto) 11.6 L, [place] % (Auto) 13.7 H, Eos % (Auto) 0.0, Baso % (Auto) 0.2, Absolute Neuts (auto) 3.9, Absolute Lymphs (auto) 0.61 L, Nucleated RBC % 0, Sodium 144, Potassium 3.6, Chloride 98, Carbon Dioxide 36.6 H, Anion Gap 9, BUN 19, Creatinine 1.05, Estim Creat Clear Calc 51.78, Est GFR (MDRD) Non-Af 60, BUN/Creatinine Ratio 17.7, Glucose 129 H, Lactic Acid 2.2 H*, Calcium 7.4 L, Total Bilirubin 2.86 H, AST 56 H, ALT 24, Alkaline Phosphatase 209 H, Ammonia 23.0, Total Protein 7.3, Albumin 2.3 L, Globulin 4.9 H, Albumin/Globulin Ratio 0.5 L 01/02/25 04:05: WBC 4.4, RBC 3.42 L, Hgb 9.9 L, Hct 31.8 L, MCV 93.0, MCH 28.9, MCHC 31.1 L, RDW Std Deviation 61.3 H, RDW Coeff of Blas 18.1 H, Plt Count 64 L, MPV 9.3, Immature Gran % (Auto) 1.100 H, Neut % (Auto) 81.9 H, Lymph % (Auto) 9.9 L, [place] % (Auto) 6.9, Eos % (Auto) 0.0, Baso % (Auto) 0.2, Absolute Neuts (auto) 3.6, Absolute Lymphs (auto) 0.43 L, Nucleated RBC % 0, Sodium 145, Potassium 3.7, Chloride 99, Carbon Dioxide 35.4 H, Anion Gap 11, BUN 20 H, Creatinine 1.01, Estim Creat Clear Calc 52.59, Est GFR (MDRD) Non-Af 63, BUN/Creatinine Ratio 19.9, Glucose 132 H, Calcium 7.3 L, Total Bilirubin 2.79 H, AST 63 H, ALT 26, Alkaline Phosphatase 194 H, Total Protein 7.2, Albumin 2.2 L, Globulin 5.0 H, Albumin/Globulin Ratio 0.4 L, Random Vancomycin 17.4 H Micro: Microbiology 12/30/24 14:25 Sputum, Expectorated/Coughed Gram Stain - Final 12/30/24 14:25 Sputum, Expectorated/Coughed Respiratory Culture - Preliminary Enterobacter spp. 12/31/24 12:10 Urine, Clean Catch Legionella Antigen - Final 12/31/24 12:10 Urine, Clean Catch Streptococcus pneumoniae Antigen (M - Final 12/31/24 11:25 Mucosa - Nasopharyngeal SARS-CoV-2, Influenza & RSV (PCR) - Final Influenzae A ABG Data ABG results: ABG 01/01/25 21:22 Specimen Type ART Sample Site R Radial pH 7.51 H Bicarbonate Actual 41.7 H Total CO2 43 Base Excess 19 H O2 Saturation 86 L O2 % 2.0 ABG pCO2 52.1 H ABG pO2 48 L Charles Test N/A O2 Delivery Device Cannula Vent Mode Not entered Radiography Diagnostic Testing: Radiology Impression Chest X-Ray 01/01/25 21:20 IMPRESSION: No significant interval change when compared with the prior study. Reading Location: [facility] X-Ray 01/01/25 21:45 IMPRESSION: Gas-filled bowel loops. This may represent ileus. Underlying obstruction can not be completely excluded. Reading Location: [facility] X-Ray 01/02/25 02:50 IMPRESSION: Gaseous distention of bowel in the upper and mid abdomen not significantly changed in appearance with gaseous prominence of the proximal and transverse colon to the splenic flexure. Overall the bowel gas pattern is not significantly changed and may represent ileus with a distal obstructing process not entirely excluded, clinically correlate.. Reading Location: [id number] Physical Exam Narrative GENERAL: Patient appears ill looking HEENT: Atraumatic; normocephalic EYES; Anicteric, Normal Conjunctiva NECK; supple, normal thyroid, RESPIRATORY: Diminished to auscultation CARDIOVASCULAR: Regular S1 S2, GI: soft, normoactive bowel sounds, abdominal sutures from her previous herniorrhaphy August 2024 : No Renal angle tenderness; EXTREMITIES: adelso edema, no clubbing, MUSCULOSKELETAL: no muscle wasting NEURO: Awake; no lateralizing signs. SKIN: No Rash PSYCH; Flat affect Assessment & Plan Assessment/Plan (1) Acute on chronic respiratory failure with hypoxia and hypercapnia: PLAN: Plan Patient is a 64-year-old female who presented [facility] ED on 12/30/2024 with worsening shortness of breath. 1. Acute on chronic hypoxic and hypercapnic respiratory failure secondary to influenza A infection ?Imaging studies obtained on admission demonstrated bilateral infiltrates. Patient admitted to the intensive care unit placed on noninvasive ventilation via BiPAP. Patient was deemed to be outside the window for Tamiflu. Patient was however started on broad-spectrum antibiotic therapy with piperacillin/tazobactam and vancomycin for suspected superimposed pneumonia. Consult placed to metal fabricator ? 01/01/2025Patient seen much more awake and interactive compared to previous day. Patient has been weaned off noninvasive ventilation currently remains on supplemental oxygen 2 L ? 01/02/2025.Patient had been transferred to the progressive care unit following stabilization of her clinical condition she was however found to be barely responsive with increased work of breathing. Patient was transferred back to the intensive care unit. Chest x-ray demonstrated elevated right hemidiaphragm with volume loss involving the right lung as well as bilateral patchy airspace opacities. Patient was also found to have distended loops of bowel. Ordered CT of the abdomen and pelvis for subsequent eval 2. Nonalcoholic fatty liver disease with complications including cirrhosis with ascites and esophageal varices ? With previous TIPS procedure. Patient has frequent paracentesis as outpatient and is followed by Dr. Estrada with GI. Patient is on lactulose did continue with home dose. Patient is on torsemide and Aldactone continued 3. Pancytopenia ? Secondary to chronic liver disease monitoring count with daily CBC with differential 4. Hypocalcemia secondary to severe hypoalbuminemia 5. Hypoalbuminemia ? Suspected to be secondary to protein calorie malnutrition as a result of decreased oral intake decreased energy level as well as multiple medical comorbidities consult placed to dietitian 6. Class I obesity with BMI of 32 ? Complicating care weight loss advised 7. Physical deconditioning ? Requested for PT OT eval and social insurance specialist to assist with discharge planning 8. DVT prophylaxis ? On enoxaparin 9. Status post hernia repair ? Requested for old records from [facility] and order was given for patient sutures to be removed from her previous surgery Time spent in the patient's overall evaluation,decision-making process, review of diagnostic data, adjustment of management, discussion with other providers, nursing nursing and ancillary staff involved in patient's care documentation, 50 Minutes Charges/Coding Visit Charges Inpatient E&M: 87808 Disch Hosp >30min
[2025-01-02] MEDS: Vancomycin HCl 750 MG in 0.9% Normal Saline (250mL Bag) 250 ML 250 MG IV ×2 (07:30→18:29)
--- NOTE | 2025-01-02 07:58 | CT_ITS ---
PROCEDURE: ABDOMEN/PELVIS WITH CONTRAST REASON FOR EXAM: Distended loops of bowel TECHNIQUE: CT abdomen and pelvis was performed with IV contrast. Multiplanar reformats were generated. Oral Gastrografin also administered. IV CONTRAST: 100 mL Isovue 370 COMPARISON: Radiographs of same date FINDINGS: Motion limitation through the lung bases and upper to mid somewhat limited abdomen. Additional streak artifact through the upper abdomen related to dense presumed embolization coils. Lung bases: Similar volume loss in the right chest with rightward mediastinal shift and elevation of the right hemidiaphragm. New small left and trace right pleural effusions. Similar consolidation and extensive multifocal cystic changes in the right lung base since earliest exam of 04/14/2024. New dependent consolidation and ground-glass in the left lung base. Enlarged pulmonary arteries may indicate pulmonary arterial hypertension. Prominent chest wall collaterals. Chronic granulomatous disease. Mild cardiomegaly. Liver: Suspect cirrhosis, surface nodularity better depicted previously given limitations. Likely steatosis. Interval placement of a TIPS which appears patent. Interval right hepatic lobe presumed embolization. Spleen: Tiny hypodensity medially too small to characterize, likely a cyst or hemangioma in the absence of known malignancy.. Gallbladder: Reportedly surgically absent. Pancreas: Grossly unremarkable. Adrenals: Grossly unremarkable. Kidneys: Unremarkable. Bowel: Enteric tube terminates in the duodenum. Oral contrast opacifies some small-bowel loops but does not reach the colon. Distorted small and large bowel loops are difficult to trace. Alternating areas of mild small bowel dilatation up to maximum 3.5 cm in diameter. No single or dominant transition point can be confidently identified. Diverticulosis. Colonic interposition between the right hepatic lobe and the diaphragm. Reported appendectomy. Lymph nodes: Unremarkable. Vasculature: Distended but patent portal vein and SMV. Patent splenic vein. Trace atherosclerosis. Mildly prominent body wall collaterals. Distended IVC. Peritoneum: Trace to small volume free fluid considerably decreased from prior, now predominantly located within the right upper quadrant/subdiaphragmatic region. Small volume free fluid also present within the below described ventral hernia. Bladder: Unremarkable. Partially imaged external urinary catheter. Reproductive Organs: Question changes of prior with possible scar along the anterior lower uterine segment and possible small scar niche and focal endometrial thickening in this area, not well evaluated by CT, slightly increased in conspicuity from prior. Body Wall: Body wall edema has increased. Moderate fat containing umbilical/periumbilical hernia containing small volume of fluid, decreased in size from prior. Additional small fat containing umbilical/periumbilical hernia immediately cranial to this. Bones: Mild spondylosis.. CT/Abdomen/Pelvis WITH Contrast IMPRESSION: 1. Somewhat limited exam as above. Alternating areas of mild small bowel dilat ation without single convincing/dominant transition point noting that distorted small and large bowel loops are difficul t to trace. Findings favor ileus however early or partial small bowel obstruction can not be excluded. Continued follow-up to ev aluate for distal propagation of orally administered contrast may be helpful. 2. Findings in the left lung base concerning for pneumonia. Chronic findings i n the right lung base may reflect sequela of previous necrotizing pneumonia with or without ongoing pneumonia. New small le ft and trace right pleural effusions. 3. Cirrhosis with sequela of portal hypertension. Anasarca, with considerably decreased now small volume free intraperitoneal fluid, increased body wall edema, and new pleural effusions as above. If there is clinical concern for HCC (elevated AFP), recommend outpatient multiphase hepatic protocol MRI abodmen with and without c ontrast, versus CT if there is a contraindication. 4. Consider outpatient pelvic for above endometrial findings. 5. Additional description as above. Reading Location: [facility]
[2025-01-02] MEDS: Ondansetron 4 MG/2 ML Vial IV (09:02)
[2025-01-02] MEDS: Pantoprazole Sodium 40 MG in 0.9% Normal Saline (100mL MB+) 100 ML 330 MG IV ×2 (09:20→20:44)
--- NOTE | 2025-01-02 11:33 | CASEMGMT ---
SW met with patient and her daughter. Introduced self and role at [facility]. Patient's daughter was present and spoke Mongolian. SW provided her with information in Greek on prescription assistance programs and [facility]. They thanked BHARGAVI for the information. Isaura PARIS
[2025-01-02] MEDS: Midodrine HCl 5 MG Tablet 20 MG PO ×2 (13:48→18:29)
[2025-01-02] MEDS: Lactulose 20 GM/30 ML UDC PO ×2 (13:48→20:44)
[2025-01-02] MEDS: Enoxaparin 40 MG/0.4 ML Syringe SC (13:48)
[2025-01-02] MEDS: Magnesium Chloride 64 MG Delay Rel.Tablet 128 MG PO ×2 (13:48→20:44)
[2025-01-02] MEDS: Spironolactone 50 MG Tablet 100 MG PO ×2 (13:48→20:44)
[2025-01-02] MEDS: Polyethylene Glycol 3350 17 GM PACKET PO ×2 (13:49→20:44)
[2025-01-02] MEDS: Torsemide 20 MG Tablet 40 MG PO ×2 (13:49→18:29)
[2025-01-02] MEDS: Senna Tablet 2 TABLET PO (20:45)
[2025-01-03] VITALS (22 sets, daily range): BP systolic 92–118; BP diastolic 54–81; PULSE 66–108; RESP 7–18; TEMP 36.2–36.8; O2SAT 98–100; BMI 31.8
[2025-01-03 03:14] LABS: Absolute Lymphocyte Count 0.31 X10^3/uL (0.83-4.51); Absolute Neutrophil Count 2.8 X10^3/uL (2.0-7.7); Basophil# 0.01 X10^3/uL; Basophil% 0.3 % (0-1); Hematocrit 32.3 % (37-47); Hemoglobin 9.7 g/dL (12.0-15.0); Lymphocyte # 0.31 X10^3/ul (0.83-4.51); Lymphocyte % 8.9 % (19-41); Mean Corpuscular Hgb 28.6 pg (27.0-32.0); Mean Corpuscular Volume 95.3 fL (81-99); Mean Platelet Vol. 10.4 fl (6.2-12.0); Monocyte# 0.39 X10^3/uL; Monocyte% 11.1 % (0-10); NRBC Flagged by Analyzer 0 % (0-5); Neutrophil # 2.75 X10^3/uL (2.7-7.7); Neutrophil % 78.6 % (47-70); POSITIVE COUNT YES; POSITIVE DIFFERENTIAL YES; Platelet Count 59 K/mm3 (150-450); RBC Distribution Width CV 18.2 % (11.6-14.6); RBC Distribution Width SD 62.4 fl (35.1-43.9); Red Blood Count 3.39 M/mm3 (4.2-5.4); White Blood Count 3.5 K/mm3 (4.4-11.0)
[2025-01-03 03:46] LABS: ALB/GLOB Ratio 0.5 RATIO (0.9-2.4); AST(SGOT) 53 U/L (<=31); Alanine Aminotransfer ALT/SGPT 27 U/L (<=34); Albumin, Serum 2.5 g/dL (3.4-4.8); Alkaline Phosphatase 192 U/L (35-104); Anion Gap 9 (5-15); BUN 23 mg/dL (4-19); BUN/Creat Ratio 23.3 RATIO (10-20); Calcium,Total 6.9 mg/dL (7.6-11.0); Carbon Dioxide 40.1 mmol/L (21.0-32.0); Chloride 97 mmol/L (98-108); EST Glomerular Filtration Rate 64 (>60); Estimated Creatinine Clearance 54.62 ml/min (50-250); Globulin 4.8 g/dL (2.2-4.2); Glucose 129 mg/dL (70-99); Potassium 2.9 mmol/L (3.3-5.1); Protein, Total 7.3 g/dL (5.9-8.4); Sodium Level 146 mmol/L (133-145); Total Bilirubin 2.93 mg/dL (0.00-1.30)
[2025-01-03] MEDS: Piperacil/Tazobactam 3.375 GM in 0.9% Normal Saline (50mL MB+) 50 ML IV ×3 (05:24→22:30)
[2025-01-03] MEDS: Midodrine HCl 5 MG Tablet 20 MG PO ×2 (05:25→12:12)
[2025-01-03] MEDS: Lactulose 20 GM/30 ML UDC PO ×3 (05:25→21:26)
[2025-01-03] MEDS: Methylprednisolone Sod Succ 40 MG/ML VIAL IV ×3 (05:25→21:26)
[2025-01-03] MEDS: 0.9% Saline Lock 10 ML Syringe IV ×3 (05:29→21:26)
[2025-01-03] MEDS: Potassium Chloride 10mEq/100mL 10 MEQ/100 ML IV.SOLN. 100 MEQ IV BOLUS ×4 (07:04→13:46)
[2025-01-03 07:17] LABS: Magnesium 1.5 mg/dL (1.5-2.2); Phosphorus 4.9 mg/dL (2.7-4.5)
--- NOTE | 2025-01-03 07:23 | PN.HOSP_ITS ---
Reason for Visit Reason for Visit: Diagnoses Acute and chronic respiratory failure with hypoxia (12/30/24) Acute and chronic respiratory failure with hypercapnia (12/30/24) Subjective Subjective Patient seen still appears ill looking. Remains in ICU NG tube to continuous suction. Patient has significant electrolyte abnormalities this a.m. including hypokalemia and hypomagnesemia Objective Data Objective Data Vital Signs: Vital Signs Temp Pulse Resp BP Pulse Ox O2 Del Method O2 Flow Rate 97.2 F L 97 12 118/81 H 99 Nasal Cannula 2 01/03/25 06:00 01/03/25 07:00 01/03/25 07:00 01/03/25 07:00 01/03/25 07:00 01/03/25 07:00 01/03/25 07:00 FiO2 30 01/01/25 21:10 Oxygen Flow Rate (L/min) 2 Oxygen Delivery Method Nasal Cannula Weight: 76.6 kg Body Mass Index (BMI) 31.8 Intake & Output: Intake and Output for Last 24 Hours 01/01/25 01/02/25 01/03/25 23:59 23:59 23:59 Intake Total 740 / 740 2090 / 2090 50 / 50 Output Total 600 / 600 1250 / 1800 950 / 950 Balance 140 / 140 840 / 290 -900 / -900 Lab / Micro Data 01/03/25 03:05 01/03/25 03:05 Labs: Laboratory Results - last 24 hr 01/03/25 03:05: WBC 3.5 L, RBC 3.39 L, Hgb 9.7 L, Hct 32.3 L, MCV 95.3, MCH 28.6, MCHC 30.0 L, RDW Std Deviation 62.4 H, RDW Coeff of Blas 18.2 H, Plt Count 59 L, MPV 10.4, Immature Gran % (Auto) 1.100 H, Neut % (Auto) 78.6 H, Lymph % (Auto) 8.9 L, [place] % (Auto) 11.1 H, Eos % (Auto) 0.0, Baso % (Auto) 0.3, Absolute Neuts (auto) 2.8, Absolute Lymphs (auto) 0.31 L, Nucleated RBC % 0, S odium 146 H, Potassium 2.9 L, Chloride 97 L, Carbon Dioxide 40.1 H, Anion Gap 9, BUN 23 H, Creatinine 1.00, Estim Creat Clear Calc 54.62, Est GFR (MDRD) Non-Af 64, BUN/Creatinine Ratio 23.3 H, Glucose 129 H, Calcium 6.9 L, Phosphorus 4.9 H, Magnesium 1.5, Total Bilirubin 2.93 H, AST 53 H, ALT 27, Alkaline Phosphatase 192 H, Total Protein 7.3, Albumin 2.5 L, Globulin 4.8 H, Albumin/Globulin Ratio 0.5 L Micro: Microbiology 12/30/24 14:25 Sputum, Expectorated/Coughed Gram Stain - Final 12/30/24 14:25 Sputum, Expectorated/Coughed Respiratory Culture - Final Enterobacter spp. 12/31/24 12:10 Urine, Clean Catch Legionella Antigen - Final 12/31/24 12:10 Urine, Clean Catch Streptococcus pneumoniae Antigen (M - Final 12/31/24 11:25 Mucosa - Nasopharyngeal SARS-CoV-2, Influenza & RSV (PCR) - Final Influenzae A Radiography Diagnostic Testing: Radiology Impression Abdomen/Pelvis CT 01/02/25 07:58 IMPRESSION: 1. Somewhat limited exam as above. Alternating areas of mild small bowel dilatation without single convincing/dominant transition point noting that distorted small and large bowel loops are difficult to trace. Findings favor ileus however early or partial small bowel obstruction can not be excluded. Continued follow-up to evaluate for distal propagation of orally administered contrast may be helpful. 2. Findings in the left lung base concerning for pneumonia. Chronic findings in the right lung base may reflect sequela of previous necrotizing pneumonia with or without ongoing pneumonia. New small left and trace right pleural effusions. 3. Cirrhosis with sequela of portal hypertension. Anasarca, with considerably decreased now small volume free intraperitoneal fluid, increased body wall edema, and new pleural effusions as above. If there is clinical concern for HCC (elevated AFP), recommend outpatient multiphase hepatic protocol MRI abodmen with and without contrast, versus CT if there is a contraindication. 4. Consider outpatient pelvic for above endometrial findings. 5. Additional description as above. Reading Location: [facility] Physical Exam Narrative GENERAL: Patient appears ill looking HEENT: Atraumatic; normocephalic EYES; Anicteric, Normal Conjunctiva NECK; supple, normal thyroid, RESPIRATORY: Diminished to auscultation CARDIOVASCULAR: Regular S1 S2, GI: soft, normoactive bowel sounds, nondistended : No Renal angle tenderness; EXTREMITIES: adelso edema, no clubbing, MUSCULOSKELETAL: no muscle wasting NEURO: Awake; no lateralizing signs. SKIN: No Rash PSYCH; Flat affect Assessment & Plan Assessment/Plan (1) Acute on chronic respiratory failure with hypoxia and hypercapnia: PLAN: Plan Patient is a 64-year-old female who presented [facility] ED on 12/30/2024 with worsening shortness of breath. 1. Acute on chronic hypoxic and hypercapnic respiratory failure secondary to influenza A infection ?Imaging studies obtained on admission demonstrated bilateral infiltrates. Patient admitted to the intensive care unit placed on noninvasive ventilation via BiPAP. Patient was deemed to be outside the window for Tamiflu. Patient was however started on broad-spectrum antibiotic therapy with piperacillin/tazobactam and vancomycin for suspected superimposed pneumonia. Consult placed to dip stand loader ? 01/01/2025Patient seen much more awake and interactive compared to previous day. Patient has been weaned off noninvasive ventilation currently remains on supplemental oxygen 2 L ? 01/02/2025.Patient had been transferred to the progressive care unit following stabilization of her clinical condition she was however found to be barely responsive with increased work of breathing. Patient was transferred back to the intensive care unit. Chest x-ray demonstrated elevated right hemidiaphragm with volume loss involving the right lung as well as bilateral patchy airspace opacities. Patient was also found to have distended loops of bowel. Ordered CT of the abdomen and pelvis for subsequent eval ? 01/03/2025; patient remains on supplemental oxygen 2. Pneumonia with gram-negative organisms ? Patient sputum cultures came back positive for Enterobacter species. Remains on broad-spectrum antibiotic therapy with Zosyn and vancomycin. CT of the abdomen and pelvis obtained did showFindings in the left lung base concerning for pneumonia. Chronic findings in the right lung base may reflect sequela of previous necrotizing pneumonia with or without ongoing pneumonia. New small left and trace right pleural effusions. 3. Partial small bowel obstruction/ileus ? Imaging studies did show Alternating areas of mild small bowel dilatation without single convincing/dominant transition point noting that distorted small and large bowel loops are difficult to trace. Findings favor ileus however early or partial small bowel obstruction can not be excluded.. Patient managed conservatively with NG tube to suction. KUB ordered this a.m. for follow-up 4. Hypokalemia -Corrected per protocol 5. Hypomagnesemia -Corrected for protocol 6. Nonalcoholic fatty liver disease with complications including cirrhosis with ascites and esophageal varices ? With previous TIPS procedure. Patient has frequent paracentesis as outpatient and is followed by Dr. Estrada with GI. Patient is on lactulose did continue with home dose. Patient is on torsemide and Aldactone continued 7. Pancytopenia ? Secondary to chronic liver disease monitoring count with daily CBC with differential 8. Hypocalcemia secondary to severe hypoalbuminemia 9. Hypoalbuminemia ? Suspected to be secondary to protein calorie malnutrition as a result of decreased oral intake decreased energy level as well as multiple medical comorbidities consult placed to dietitian 10. Class I obesity with BMI of 32 ? Complicating care weight loss advised 11. Physical deconditioning ? Requested for PT OT eval and director of social media marketing to assist with discharge planning 12. DVT prophylaxis ? On enoxaparin 13. Status post hernia repair ? Requested for old records from [facility] and order was given for patient sutures to be removed from her previous surgery Time spent in the patient's overall evaluation,decision-making process, review of diagnostic data, adjustment of management, discussion with other providers, nursing nursing and ancillary staff involved in patient's care documentation, 52 Minutes Charges/Coding Visit Charges Inpatient E&M: 37943 [facility] L3
[2025-01-03] MEDS: Magnesium Sulfate 2 GM in Dextrose 5%-Water (100mL Bag) 100 ML IV (08:40)
[2025-01-03] MEDS: Calcium Gluconate IV 1 GM in 0.9% Normal Saline (100mL Bag) 100 ML IV (08:42)
[2025-01-03] MEDS: Vancomycin HCl 750 MG in 0.9% Normal Saline (250mL Bag) 250 ML 250 MG IV (08:48)
--- NOTE | 2025-01-03 09:05 | RAD_ITS ---
PROCEDURE: ABD INC DECUB AND/OR ERECT REASON FOR EXAM: 64-year-old female, partial small bowel obstruction. TECHNIQUE: Supine and upright views of the abdomen. COMPARISON: CT abdomen pelvis 01/02/2025. FINDINGS: Stable, partially visualized enteric tube with side hole and tip terminating within the proximal duodenum. TIPS and coil embolization overlying the liver parenchyma. Increased dilation of the small bowel loops within the central abdomen. Oral contrast material within the distal colon. Contrast opacifies the urinary bladder from recent CT examination.No obvious pneumoperitoneum, however visualization is limited by large right diaphragmatic hernia. The bowel loops within the right diaphragmatic hernia are not completely included in the field of view, however appear grossly stable to comparison CT from 1 day prior. See recent CT abdomen pelvis for discussion of thoracic findings. No suspicious calcifications.The bones are unremarkable. RAD/Abd Inc Decub and/or Erect IMPRESSION: 1. Increased dilation of the small bowel loops within the central abdomen, martínez zainab the oral contrast material from CT examination 1 day prior is now visualized within the distal colon, indicating at least part ial or incomplete small bowel obstruction. Continued progress radiographs are recommended. 2. Partially visualized large right diaphragmatic hernia containing small bowel loops. See recent CT for discussion of thoracic findings. Reading Location: [id number]
[2025-01-03] MEDS: Torsemide 20 MG Tablet 40 MG PO (10:52)
[2025-01-03] MEDS: Ipratropium/Albuterol Sulfate 3 ML AMPUL.NEB INHALATION ×2 (11:04→19:33)
[2025-01-03] MEDS: Pantoprazole Sodium 40 MG in 0.9% Normal Saline (100mL MB+) 100 ML 330 MG IV ×2 (11:05→21:36)
[2025-01-03] MEDS: Enoxaparin 40 MG/0.4 ML Syringe SC (12:11)
[2025-01-03] MEDS: Magnesium Chloride 64 MG Delay Rel.Tablet 128 MG PO ×2 (12:11→21:26)
[2025-01-03] MEDS: Polyethylene Glycol 3350 17 GM PACKET PO (12:12)
[2025-01-03] MEDS: Senna Tablet 2 TABLET PO ×2 (12:12→21:26)
[2025-01-03] MEDS: Spironolactone 50 MG Tablet 100 MG PO (12:12)
[2025-01-03 20:49] LABS: Magnesium 2.1 mg/dL (1.5-2.2)
--- NOTE | 2025-01-03 21:07 | PCM.RX.CS ---
Consult Antibiotic Management Pharmacy has been consulted to manage selected antibiotic: Vancomycin Type of Intervention Type of Consult: Follow-up Labs Labs: Sodium 146 mmol/L (133-145) H 01/03/25 03:05 Chloride 97 mmol/L (98-108) L 01/03/25 03:05 Carbon Dioxide 40.1 mmol/L (21.0-32.0) H 01/03/25 03:05 Anion Gap 9 (5-15) 01/03/25 03:05 BUN 23 mg/dL (4-19) H 01/03/25 03:05 Creatinine 1.00 mg/dL (0.70-1.20) 01/03/25 03:05 Est GFR (MDRD) Non-Af 64 (>60) 01/03/25 03:05 BUN/Creatinine Ratio 23.3 RATIO (10-20) H 01/03/25 03:05 Glucose 129 mg/dL (70-99) H 01/03/25 03:05 Vancomycin Trough 26.0 ug/mL (5.0-15.0) H 01/03/25 18:30 Random Vancomycin 17.4 ug/mL (0.0-15.0) H 01/02/25 04:05 Microbiology Microbiology: Microbiology 12/30/24 14:25 Sputum, Expectorated/Coughed Gram Stain - Final 12/30/24 14:25 Sputum, Expectorated/Coughed Respiratory Culture - Final Enterobacter spp. 12/31/24 12:10 Urine, Clean Catch Legionella Antigen - Final 12/31/24 12:10 Urine, Clean Catch Streptococcus pneumoniae Antigen (M - Final 12/31/24 11:25 Mucosa - Nasopharyngeal SARS-CoV-2, Influenza & RSV (PCR) - Final Influenzae A Goal Trough Goal Trough: 15-20 mcg/mL Pharmacy Plan for Drug Dosing Pharmacy Plan for Drug Dosing: Pharmacy Service will continue to monitor and adjust dosing as required. TROUGH 26. HOLD DOSE AND DRAW RANDOM LEVEL IN 24 HOURS Follow-Up Labs Follow-Up Labs: Trough: Vancomycin Date/Time Labs Ordered Labs to be done on [date and time ordered]: 01/04 @ 5206
[2025-01-03 23:11] LABS: Calcium 6.6 mg/dL (7.6-11.0); Potassium 3.3 mmol/L (3.3-5.1)
[2025-01-04] VITALS (8 sets, daily range): BP systolic 107–112; BP diastolic 52–75; PULSE 69–98; RESP 17–52; TEMP 36.4–36.9; O2SAT 93–98; BMI 30.9
[2025-01-04] MEDS: Midodrine HCl 5 MG Tablet 20 MG PO ×3 (00:13→12:29)
[2025-01-04] MEDS: Piperacil/Tazobactam 3.375 GM in 0.9% Normal Saline (50mL MB+) 50 ML IV (05:21)
[2025-01-04] MEDS: Lactulose 20 GM/30 ML UDC PO (05:23)
[2025-01-04] MEDS: 0.9% Saline Lock 10 ML Syringe IV ×5 (05:29→22:31)
[2025-01-04] MEDS: Methylprednisolone Sod Succ 40 MG/ML VIAL IV ×3 (05:30→22:32)
[2025-01-04] MEDS: Ipratropium/Albuterol Sulfate 3 ML AMPUL.NEB INHALATION ×3 (07:11→14:54)
--- NOTE | 2025-01-04 07:40 | PN.HOSP_ITS ---
Reason for Visit Reason for Visit: Diagnoses Acute and chronic respiratory failure with hypoxia (12/30/24) Acute and chronic respiratory failure with hypercapnia (12/30/24) Subjective Subjective Patient was transferred from the intensive care unit to PCU the day prior. Overall clinical condition continues to improve platelet count however is down to 46. Potassium 2.7. Plan is to increase activity as tolerated. Objective Data Objective Data Vital Signs: Vital Signs Temp Pulse Resp BP Pulse Ox O2 Del Method O2 Flow Rate 98.4 F 90 18 107/52 L 93 Nasal Cannula 2 01/04/25 04:19 01/04/25 07:12 01/04/25 07:12 01/04/25 04:19 01/04/25 07:12 01/04/25 07:12 01/04/25 07:12 FiO2 30 01/01/25 21:10 Oxygen Flow Rate (L/min) 2 Oxygen Delivery Method Nasal Cannula Weight: 74.4 kg Body Mass Index (BMI) 30.9 Intake & Output: Intake and Output for Last 24 Hours 01/02/25 01/03/25 01/05/25 23:59 23:59 00:59 Intake Total 2090 / 2090 1469 / 1469 200 / 200 Output Total 1250 / 1800 1050 / 1050 Balance 840 / 290 419 / 419 200 / 200 Lab / Micro Data 01/04/25 07:55 01/04/25 07:55 Labs: Laboratory Results - last 24 hr 01/03/25 03:05: Phosphorus 4.9 H, Magnesium 1.5 01/03/25 18:30: Potassium 3.3, Calcium 6.6 L, Magnesium 2.1, Vancomycin Trough 26.0 H Micro: Microbiology 12/30/24 14:25 Sputum, Expectorated/Coughed Gram Stain - Final 12/30/24 14:25 Sputum, Expectorated/Coughed Respiratory Culture - Final Enterobacter spp. 12/31/24 12:10 Urine, Clean Catch Legionella Antigen - Final 12/31/24 12:10 Urine, Clean Catch Streptococcus pneumoniae Antigen (M - Final 12/31/24 11:25 Mucosa - Nasopharyngeal SARS-CoV-2, Influenza & RSV (PCR) - Final Influenzae A Radiography Diagnostic Testing: Radiology Impression Abdomen X-Ray 01/03/25 09:05 IMPRESSION: 1. Increased dilation of the small bowel loops within the central abdomen, however the oral contrast material from CT examination 1 day prior is now visualized within the distal colon, indicating at least partial or incomplete small bowel obstruction. Continued progress radiographs are recommended. 2. Partially visualized large right diaphragmatic hernia containing small bowel loops. See recent CT for discussion of thoracic findings. Reading Location: [facility] Physical Exam Narrative GENERAL: Patient appears ill looking HEENT: Atraumatic; normocephalic EYES; Anicteric, Normal Conjunctiva NECK; supple, normal thyroid, RESPIRATORY: Diminished to auscultation CARDIOVASCULAR: Regular S1 S2, GI: soft, normoactive bowel sounds, nondistended : No Renal angle tenderness; EXTREMITIES: adelso edema, no clubbing, MUSCULOSKELETAL: no muscle wasting NEURO: Awake; no lateralizing signs. SKIN: No Rash PSYCH; Flat affect Assessment & Plan Assessment/Plan (1) Acute on chronic respiratory failure with hypoxia and hypercapnia: PLAN: Plan Patient is a 64-year-old female who presented [facility] ED on 12/30/2024 with worsening shortness of breath. 1. Acute on chronic hypoxic and hypercapnic respiratory failure secondary to influenza A infection ?Imaging studies obtained on admission demonstrated bilateral infiltrates. Patient admitted to the intensive care unit placed on noninvasive ventilation via BiPAP. Patient was deemed to be outside the window for Tamiflu. Patient was however started on broad-spectrum antibiotic therapy with piperacillin/tazobactam and vancomycin for suspected superimposed pneumonia. Consult placed to supervisor component assembler ? 01/01/2025Patient seen much more awake and interactive compared to previous day. Patient has been weaned off noninvasive ventilation currently remains on supplemental oxygen 2 L ? 01/02/2025.Patient had been transferred to the progressive care unit following stabilization of her clinical condition she was however found to be barely responsive with increased work of breathing. Patient was transferred back to the intensive care unit. Chest x-ray demonstrated elevated right hemidiaphragm with volume loss involving the right lung as well as bilateral patchy airspace opacities. Patient was also found to have distended loops of bowel. Ordered CT of the abdomen and pelvis for subsequent eval ? 01/03/2025; patient remains on supplemental oxygen ? 01/04/2025; remains on 2 L flow per minute. Plan is for patient to be assessed for home oxygen prior to being discharged 2. Pneumonia with gram-negative organisms ? Patient sputum cultures came back positive for Enterobacter species. Remains on broad-spectrum antibiotic therapy with Zosyn and vancomycin. CT of the abdomen and pelvis obtained did showFindings in the left lung base concerning for pneumonia. Chronic findings in the right lung base may reflect sequela of previous necrotizing pneumonia with or without ongoing pneumonia. New small left and trace right pleural effusions. ? 01/04/2025;Discontinue Zosyn patient started on Levaquin 3. Partial small bowel obstruction/ileus ? Imaging studies did show Alternating areas of mild small bowel dilatation without single convincing/dominant transition point noting that distorted small and large bowel loops are difficult to trace. Findings favor ileus however early or partial small bowel obstruction can not be excluded.. Patient managed conservatively with NG tube to suction. KUB ordered this a.m. for follow-up 4. Hypokalemia -Corrected per protocol ? 01/04/2025; patient potassium still remains significantly low additional replacement given 5. Hypomagnesemia -Corrected for protocol 6. Nonalcoholic fatty liver disease with complications including cirrhosis with ascites and esophageal varices ? With previous TIPS procedure. Patient has frequent paracentesis as outpatient and is followed by Dr. Estrada with GI. Patient is on lactulose did continue with home dose. Patient is on torsemide and Aldactone continued 7. Pancytopenia ? Secondary to chronic liver disease monitoring count with daily CBC with differential 8. Hypocalcemia secondary to severe hypoalbuminemia 9. Hypoalbuminemia ? Suspected to be secondary to protein calorie malnutrition as a result of decreased oral intake decreased energy level as well as multiple medical comorbidities consult placed to dietitian 10. Class I obesity with BMI of 32 ? Complicating care weight loss advised 11. Physical deconditioning ? Requested for PT OT eval and clinical social work therapist to assist with discharge planning 12. DVT prophylaxis ? On enoxaparin 13. Status post hernia repair ? Requested for old records from [facility] and order was given for patient sutures to be removed from her previous surgery Time spent in the patient's overall evaluation,decision-making process, review of diagnostic data, adjustment of management, discussion with other providers, nursing nursing and ancillary staff involved in patient's care documentation, 50 minutes Charges/Coding Visit Charges Inpatient E&M: [id number] [facility] L3
[2025-01-04 08:36] LABS: Absolute Lymphocyte Count 0.21 X10^3/uL (0.83-4.51); Absolute Neutrophil Count 1.6 X10^3/uL (2.0-7.7); Hematocrit 32.8 % (37-47); Lymphocyte # 0.21 X10^3/ul (0.83-4.51); Lymphocyte % 9.6 % (19-41); Mean Corp Hgb Conc 30.5 g/dL (32-36); Mean Corpuscular Hgb 29.2 pg (27.0-32.0); Mean Corpuscular Volume 95.9 fL (81-99); Mean Platelet Vol. 8.8 fl (6.2-12.0); Monocyte# 0.34 X10^3/uL; Monocyte% 15.5 % (0-10); NRBC Flagged by Analyzer 0 % (0-5); Neutrophil # 1.61 X10^3/uL (2.7-7.7); Neutrophil % 73.5 % (47-70); POSITIVE COUNT YES; POSITIVE DIFFERENTIAL YES; RBC Distribution Width CV 17.9 % (11.6-14.6); RBC Distribution Width SD 62.6 fl (35.1-43.9); Red Blood Count 3.42 M/mm3 (4.2-5.4); White Blood Count 2.2 K/mm3 (4.4-11.0)
[2025-01-04 08:38] LABS: Differential Indicated SCAN CRITERIA MET; Platelet Count 46 K/mm3 (150-450)
[2025-01-04 08:58] LABS: Anisocytosis 1+; Hypochromasia 1+; Pathologist Review May foll; Platelet Estimate MKD DEC (ADEQ)
[2025-01-04 09:41] LABS: ALB/GLOB Ratio 0.5 RATIO (0.9-2.4); AST(SGOT) 50 U/L (<=31); Alanine Aminotransfer ALT/SGPT 23 U/L (<=34); Albumin, Serum 2.5 g/dL (3.4-4.8); Alkaline Phosphatase 168 U/L (35-104); Anion Gap 9 (5-15); BUN 25 mg/dL (4-19); BUN/Creat Ratio 22.3 RATIO (10-20); Calcium,Total 6.8 mg/dL (7.6-11.0); Carbon Dioxide 39.4 mmol/L (21.0-32.0); Chloride 95 mmol/L (98-108); Creatinine, Serum 1.11 mg/dL (0.70-1.20); EST Glomerular Filtration Rate 56 (>60); Estimated Creatinine Clearance 48.48 ml/min (50-250); Globulin 4.7 g/dL (2.2-4.2); Glucose 169 mg/dL (70-99); Potassium 2.7 mmol/L (3.3-5.1); Protein, Total 7.2 g/dL (5.9-8.4); Sodium Level 144 mmol/L (133-145)
[2025-01-04] MEDS: Pantoprazole Sodium 40 MG in 0.9% Normal Saline (100mL MB+) 100 ML 330 MG IV ×2 (10:25→23:52)
[2025-01-04] MEDS: Ondansetron 4 MG/2 ML Vial IV ×2 (10:33→16:00)
[2025-01-04] MEDS: Potassium Chloride Oral Tablet 20 MEQ 40 MEQ PO (11:56)
[2025-01-04] MEDS: Magnesium Chloride 64 MG Delay Rel.Tablet 128 MG PO (11:56)
[2025-01-04] MEDS: Torsemide 20 MG Tablet 40 MG PO (12:00)
[2025-01-04] MEDS: levoFLOXacin 500 MG Tablet PO (12:27)
[2025-01-04] MEDS: Potassium Chloride 10mEq/100mL 10 MEQ/100 ML IV.SOLN. 100 MEQ IV BOLUS ×4 (12:27→16:14)
[2025-01-04] MEDS: Morphine 2 MG/ML Syringe IV ×2 (16:10→22:38)
--- NOTE | 2025-01-04 17:03 | RAD_ITS ---
PROCEDURE: Abdomen radiographs REASON FOR EXAM: Pain TECHNIQUE: Three views of the abdomen COMPARISON: Yesterday FINDINGS: See impression RAD/Abd Decub and/or Erect(Portabl IMPRESSION: Mild diffuse gaseous dilation of the colon which may relate to partial obstruct ion or ileus. Some contrast distally within the rectum. Fecal retention in the cecum and sigmoid colon. Tips shunt in place. Elevated right hemidiaphragm. Bibasilar airspace opacities. No gross pneumoperitoneum. Reading Location: [facility]
[2025-01-04 17:28] LABS: Anion Gap 10 (5-15); BUN 26 mg/dL (4-19); BUN/Creat Ratio 22.9 RATIO (10-20); Calcium,Total 6.8 mg/dL (7.6-11.0); Carbon Dioxide 41.6 mmol/L (21.0-32.0); Chloride 94 mmol/L (98-108); Creatinine, Serum 1.12 mg/dL (0.70-1.20); EST Glomerular Filtration Rate 56 (>60); Estimated Creatinine Clearance 48.05 ml/min (50-250); Glucose 198 mg/dL (70-99); Potassium 2.9 mmol/L (3.3-5.1); Sodium Level 145 mmol/L (133-145)
--- NOTE | 2025-01-04 19:00 | RAD_ITS ---
PROCEDURE: ABDOMEN SINGLE VIEW (PORTABLE) REASON FOR EXAM: Tube placement TECHNIQUE: Single view abdomen. COMPARISON: Same day radiographs FINDINGS: See impression RAD/Abdomen Single View (Portable) IMPRESSION: Enteric tube terminates in the stomach. Otherwise, no significant interval miko nge. Reading Location: [facility]
[2025-01-04 20:13] LABS: Vancomycin, Random Level 17.2 ug/mL (0.0-15.0)
--- NOTE | 2025-01-04 21:36 | PCM.RX.CS ---
Consult Antibiotic Management Pharmacy has been consulted to manage selected antibiotic: Vancomycin Type of Intervention Type of Consult: Follow-up Labs Labs: Sodium 145 mmol/L (133-145) 01/04/25 15:50 Potassium 2.9 mmol/L (3.3-5.1) L 01/04/25 15:50 Chloride 94 mmol/L (98-108) L 01/04/25 15:50 Carbon Dioxide 41.6 mmol/L (21.0-32.0) H 01/04/25 15:50 Anion Gap 10 (5-15) 01/04/25 15:50 BUN 26 mg/dL (4-19) H 01/04/25 15:50 Creatinine 1.12 mg/dL (0.70-1.20) 01/04/25 15:50 Est GFR (MDRD) Non-Af 56 (>60) L 01/04/25 15:50 BUN/Creatinine Ratio 22.9 RATIO (10-20) H 01/04/25 15:50 Glucose 198 mg/dL (70-99) H 01/04/25 15:50 Vancomycin Trough 26.0 ug/mL (5.0-15.0) H 01/03/25 18:30 Random Vancomycin 17.2 ug/mL (0.0-15.0) H 01/04/25 18:30 Microbiology Microbiology: Microbiology 12/30/24 15:07 Blood Culture (Wb) - Anticubital Left Blood Culture - Final No growth in 5 days. 12/30/24 15:35 Blood Culture (Wb) - Anticubital Right Blood Culture - Final No growth in 5 days. 12/30/24 14:25 Sputum, Expectorated/Coughed Gram Stain - Final 12/30/24 14:25 Sputum, Expectorated/Coughed Respiratory Culture - Final Enterobacter spp. 12/31/24 12:10 Urine, Clean Catch Legionella Antigen - Final 12/31/24 12:10 Urine, Clean Catch Streptococcus pneumoniae Antigen (M - Final 12/31/24 11:25 Mucosa - Nasopharyngeal SARS-CoV-2, Influenza & RSV (PCR) - Final Influenzae A Goal Trough Goal Trough: 15-20 mcg/mL Pharmacy Plan for Drug Dosing Pharmacy Plan for Drug Dosing: Pharmacy Service will continue to monitor and adjust dosing as required. RANDOM LEVEL 17.2. START 500MG Q12H AND DRAW TROUGH PRIOR TO 4TH DOSE Follow-Up Labs Follow-Up Labs: Trough: Vancomycin Date/Time Labs Ordered Labs to be done on [date and time ordered]: 01/06 @ 0800
[2025-01-04] MEDS: Vancomycin IV 500 MG/100 ML BAG 100 MG IV (22:30)
[2025-01-05] VITALS (10 sets, daily range): BP systolic 115–122; BP diastolic 68–78; PULSE 91–115; RESP 16–19; TEMP 36.3–36.8; O2SAT 96–100; BMI 31.5
[2025-01-05] MEDS: Methylprednisolone Sod Succ 40 MG/ML VIAL IV ×3 (05:01→22:40)
[2025-01-05 05:42] LABS: Absolute Lymphocyte Count 0.16 X10^3/uL (0.83-4.51); Absolute Neutrophil Count 1.7 X10^3/uL (2.0-7.7); Hemoglobin 10.9 g/dL (12.0-15.0); Lymphocyte # 0.16 X10^3/ul (0.83-4.51); Lymphocyte % 7.9 % (19-41); Mean Corp Hgb Conc 30.3 g/dL (32-36); Mean Corpuscular Hgb 28.9 pg (27.0-32.0); Mean Corpuscular Volume 95.5 fL (81-99); Mean Platelet Vol. 9.2 fl (6.2-12.0); Monocyte# 0.18 X10^3/uL; Monocyte% 8.9 % (0-10); NRBC Flagged by Analyzer 0 % (0-5); Neutrophil # 1.65 X10^3/uL (2.7-7.7); Neutrophil % 81.7 % (47-70); POSITIVE COUNT YES; POSITIVE DIFFERENTIAL YES; RBC Distribution Width CV 17.7 % (11.6-14.6); RBC Distribution Width SD 62.3 fl (35.1-43.9); Red Blood Count 3.77 M/mm3 (4.2-5.4)
[2025-01-05 05:46] LABS: Differential Indicated SCAN CRITERIA MET; Platelet Count 37 K/mm3 (150-450)
[2025-01-05 07:02] LABS: Differential Comment SCANNED; Pathologist Review May foll; Platelet Estimate MKD DEC (ADEQ); Target Cells 1+
[2025-01-05 07:21] LABS: ALB/GLOB Ratio 0.5 RATIO (0.9-2.4); AST(SGOT) 53 U/L (<=31); Alanine Aminotransfer ALT/SGPT 26 U/L (<=34); Albumin, Serum 2.6 g/dL (3.4-4.8); Alkaline Phosphatase 173 U/L (35-104); Anion Gap 12 (5-15); BUN 23 mg/dL (4-19); BUN/Creat Ratio 20.8 RATIO (10-20); Calcium,Total 6.9 mg/dL (7.6-11.0); Carbon Dioxide 42.3 mmol/L (21.0-32.0); Chloride 93 mmol/L (98-108); EST Glomerular Filtration Rate 57 (>60); Estimated Creatinine Clearance 49.36 ml/min (50-250); Globulin 5.3 g/dL (2.2-4.2); Glucose 165 mg/dL (70-99); Potassium 2.9 mmol/L (3.3-5.1); Protein, Total 7.8 g/dL (5.9-8.4); Sodium Level 147 mmol/L (133-145); Total Bilirubin 3.89 mg/dL (0.00-1.30)
[2025-01-05] MEDS: Ipratropium/Albuterol Sulfate 3 ML AMPUL.NEB INHALATION ×4 (07:32→19:33)
--- NOTE | 2025-01-05 08:10 | PCM.PN.HOSP ---
Reason for Visit Reason for Visit: Diagnoses Acute and chronic respiratory failure with hypoxia (12/30/24) Acute and chronic respiratory failure with hypercapnia (12/30/24) Subjective Subjective Patient had recurrence of her nausea and vomiting imaging studies obtained demonstrate Mild diffuse gaseous dilation of the colon which may relate to partial obstruction or ileus. Some contrast distally within the rectum. Fecal retention in the cecum and sigmoid colon. Patient NG tube was placed back.. Consult was placed to general surgery Case discussed with Dr. Celis Objective Data Objective Data Vital Signs: Vital Signs Temp Pulse Resp BP Pulse Ox O2 Del Method O2 Flow Rate 98.3 F 93 19 H 122/78 H 98 Nasal Cannula 2 01/05/25 05:13 01/05/25 05:13 01/05/25 05:13 01/05/25 05:13 01/05/25 05:13 01/05/25 05:13 01/05/25 05:13 FiO2 30 01/01/25 21:10 Oxygen Flow Rate (L/min) 2 Oxygen Delivery Method Nasal Cannula Weight: 75.7 kg Body Mass Index (BMI) 31.5 Intake & Output: Intake and Output for Last 24 Hours 01/03/25 01/05/25 01/05/25 23:59 00:59 23:59 Intake Total 1469 / 1469 880 / 880 270 / 270 Output Total 1050 / 1050 200 / 200 725 / 725 Balance 419 / 419 680 / 680 -455 / -455 Lab / Micro Data 01/05/25 05:23 01/05/25 05:23 Labs: Laboratory Results - last 24 hr 01/04/25 07:55: WBC 2.2 L, RBC 3.42 L, Hgb 10.0 L, Hct 32.8 L, MCV 95.9, MCH 29.2, MCHC 30.5 L, RDW Std Deviation 62.6 H, RDW Coeff of Blas 17.9 H, Plt Count 46 L*, MPV 8.8, Immature Gran % (Auto) 1.400 H, Neut % (Auto) 73.5 H, Lymph % (Auto) 9.6 L, [place] % (Auto) 15.5 H, Eos % (Auto) 0.0, Baso % (Auto) 0.0, Absolute Neuts (auto) 1.6 L, Absolute Lymphs (auto) 0.21 L, Nucleated RBC % 0, Diff Path Review May kady, Platelet Estimate MKD DEC, Hypochromasia 1+, Anisocytosis 1+, Sodium 144, Potassium 2.7 L*, Chloride 95 L, Carbon Dioxide 39.4 H, Anion Gap 9, BUN 25 H, Creatinine 1.11, Estim Creat Clear Calc 48.48 L, Est GFR (MDRD) Non-Af 56 L, BUN/Creatinine Ratio 22.3 H, Glucose 169 H, Calcium 6.8 L, Total Bilirubin 2.90 H, AST 50 H, ALT 23, Alkaline Phosphatase 168 H, Total Protein 7.2, Albumin 2.5 L, Globulin 4.7 H, Albumin/Globulin Ratio 0.5 L 01/04/25 15:50: Sodium 145, Potassium 2.9 L, Chloride 94 L, Carbon Dioxide 41.6 H, Anion Gap 10, BUN 26 H, Creatinine 1.12, Estim Creat Clear Calc 48.05 L, Est GFR (MDRD) Non-Af 56 L, BUN/Creatinine Ratio 22.9 H, Glucose 198 H, Calcium 6.8 L 01/04/25 18:30: Random Vancomycin 17.2 H 01/05/25 05:23: WBC 2.0 L, RBC 3.77 L, Hgb 10.9 L, Hct 36.0 L, MCV 95.5, MCH 28.9, MCHC 30.3 L, RDW Std Deviation 62.3 H, RDW Coeff of Blas 17.7 H, Plt Count 37 L*, MPV 9.2, Immature Gran % (Auto) 1.500 H, Neut % (Auto) 81.7 H, Lymph % (Auto) 7.9 L, [place] % (Auto) 8.9, Eos % (Auto) 0.0, Baso % (Auto) 0.0, Absolute Neuts (auto) 1.7 L, Absolute Lymphs (auto) 0.16 L, Nucleated RBC % 0, Differential Comment SCANNED, Diff Path Review February kady, Platelet Estimate MKD DEC, Target Cells 1+, Sodium 147 H, Potassium 2.9 L, Chloride 93 L, Carbon Dioxide 42.3 H, Anion Gap 12, BUN 23 H, Creatinine 1.10, Estim Creat Clear Calc 49.36 L, Est GFR (MDRD) Non-Af 57 L, BUN/Creatinine Ratio 20.8 H, Glucose 165 H, Calcium 6.9 L, Total Bilirubin 3.89 H, AST 53 H, ALT 26, Alkaline Phosphatase 173 H, Total Protein 7.8, Albumin 2.6 L, Globulin 5.3 H, Albumin/Globulin Ratio 0.5 L Micro: Microbiology 12/30/24 15:07 Blood Culture (Wb) - Anticubital Left Blood Culture - Final No growth in 5 days. 12/30/24 15:35 Blood Culture (Wb) - Anticubital Right Blood Culture - Final No growth in 5 days. 12/30/24 14:25 Sputum, Expectorated/Coughed Gram Stain - Final 12/30/24 14:25 Sputum, Expectorated/Coughed Respiratory Culture - Final Enterobacter spp. 12/31/24 12:10 Urine, Clean Catch Legionella Antigen - Final 12/31/24 12:10 Urine, Clean Catch Streptococcus pneumoniae Antigen (M - Final 12/31/24 11:25 Mucosa - Nasopharyngeal SARS-CoV-2, Influenza & RSV (PCR) - Final Influenzae A Radiography Diagnostic Testing: Radiology Impression Abdomen X-Ray 01/04/25 17:03 IMPRESSION: Mild diffuse gaseous dilation of the colon which may relate to partial obstruction or ileus. Some contrast distally within the rectum. Fecal retention in the cecum and sigmoid colon. Tips shunt in place. Elevated right hemidiaphragm. Bibasilar airspace opacities. No gross pneumoperitoneum. Reading Location: [facility] KUB X-Ray 01/04/25 19:00 IMPRESSION: Enteric tube terminates in the stomach. Otherwise, no significant interval change. Reading Location: [facility] Physical Exam Narrative GENERAL: Patient appears ill looking HEENT: Atraumatic; normocephalic EYES; Anicteric, Normal Conjunctiva NECK; supple, normal thyroid, RESPIRATORY: Diminished to auscultation CARDIOVASCULAR: Regular S1 S2, GI: soft, NG tube in place with feculent material : No Renal angle tenderness; EXTREMITIES: adelso edema, no clubbing, MUSCULOSKELETAL: no muscle wasting NEURO: Awake; no lateralizing signs. SKIN: No Rash PSYCH; Flat affect Assessment & Plan Assessment/Plan (1) Acute on chronic respiratory failure with hypoxia and hypercapnia: PLAN: Plan Patient is a 64-year-old female who presented [facility] ED on 12/30/2024 with worsening shortness of breath. 1. Acute on chronic hypoxic and hypercapnic respiratory failure secondary to influenza A infection ?Imaging studies obtained on admission demonstrated bilateral infiltrates. Patient admitted to the intensive care unit placed on noninvasive ventilation via BiPAP. Patient was deemed to be outside the window for Tamiflu. Patient was however started on broad-spectrum antibiotic therapy with piperacillin/tazobactam and vancomycin for suspected superimposed pneumonia. Consult placed to c wpf developer ? 01/01/2025Patient seen much more awake and interactive compared to previous day. Patient has been weaned off noninvasive ventilation currently remains on supplemental oxygen 2 L ? 01/02/2025.Patient had been transferred to the progressive care unit following stabilization of her clinical condition she was however found to be barely responsive with increased work of breathing. Patient was transferred back to the intensive care unit. Chest x-ray demonstrated elevated right hemidiaphragm with volume loss involving the right lung as well as bilateral patchy airspace opacities. Patient was also found to have distended loops of bowel. Ordered CT of the abdomen and pelvis for subsequent eval ? 01/03/2025; patient remains on supplemental oxygen ? 01/04/2025; remains on 2 L flow per minute. Plan is for patient to be assessed for home oxygen prior to being discharged 2. Pneumonia with gram-negative organisms ? Patient sputum cultures came back positive for Enterobacter species. Remains on broad-spectrum antibiotic therapy with Zosyn and vancomycin. CT of the abdomen and pelvis obtained did showFindings in the left lung base concerning for pneumonia. Chronic findings in the right lung base may reflect sequela of previous necrotizing pneumonia with or without ongoing pneumonia. New small left and trace right pleural effusions. ? 01/04/2025;Discontinued Zosyn patient started on Levaquin 3. Partial small bowel obstruction/ileus ? Imaging studies did show Alternating areas of mild small bowel dilatation without single convincing/dominant transition point noting that distorted small and large bowel loops are difficult to trace. Findings favor ileus however early or partial small bowel obstruction can not be excluded.. Patient managed conservatively with NG tube to suction. KUB ordered this a.m. for follow-up ? 01/05/2025; Patient had recurrence of her nausea and vomiting imaging studies obtained demonstrate Mild diffuse gaseous dilation of the colon which may relate to partial obstruction or ileus. Some contrast distally within the rectum. Fecal retention in the cecum and sigmoid colon. Patient NG tube was placed back. ? Given the recurrent nature of patient partial small bowel obstruction consult was placed to general surgery Case was discussed with Dr. Celis 4. Hypokalemia -Corrected per protocol ? 01/04/2025; patient potassium still remains significantly low additional replacement given ? 01/05/2025; patient low potassium levels persist despite aggressive replacement. Ordered repeat phosphorus and magnesium 5. Hypomagnesemia -Corrected for protocol 6. Nonalcoholic fatty liver disease with complications including cirrhosis with ascites and esophageal varices ? With previous TIPS procedure. Patient has frequent paracentesis as outpatient and is followed by Dr. Estrada with GI. Patient is on lactulose did continue with home dose. Patient is on torsemide and Aldactone continued 7. Pancytopenia ? Secondary to chronic liver disease monitoring count with daily CBC with differential ? 01/05/2025 patient WBC count at 2.0, hemoglobin 10.9 and platelet count 37 patient had been placed on enoxaparin previously discontinued. Repeat CBC with differential ordered in a.m. 8. Hypocalcemia secondary to severe hypoalbuminemia 9. Hypoalbuminemia ? Suspected to be secondary to protein calorie malnutrition as a result of decreased oral intake decreased energy level as well as multiple medical comorbidities consult placed to dietitian 10. Class I obesity with BMI of 32 ? Complicating care weight loss advised 11. Physical deconditioning ? Requested for PT OT eval and social science research assistant to assist with discharge planning 12. DVT prophylaxis ? On enoxaparin 13. Status post hernia repair ? Requested for old records from [facility] and order was given for patient sutures to be removed from her previous surgery Time spent in the patient's overall evaluation,decision-making process, review of diagnostic data, adjustment of management, discussion with other providers, nursing nursing and ancillary staff involved in patient's care documentation, 50 minutes Charges/Coding Visit Charges Inpatient E&M: 14930 [facility] L3
[2025-01-05 08:37] LABS: Phosphorus 3.5 mg/dL (2.7-4.5)
[2025-01-05] MEDS: Morphine 2 MG/ML Syringe IV (09:54)
[2025-01-05] MEDS: Potassium Chloride 10mEq/100mL 10 MEQ/100 ML IV.SOLN. 100 MEQ IV BOLUS ×4 (10:31→15:01)
--- NOTE | 2025-01-05 12:08 | EX.PCM.CON.S ---
Assessment & Plan Assessment/Plan (1) Ileus due to infection: (2) Small bowel obstruction: PLAN: Plan I have been consulted in conjunction with Dr. Celis. He will independently evaluate this patient. Patient presents due to increased respiratory efforts secondary to testing positive for influenza A. Patient had developed nausea and vomiting during her hospitalization and subsequently had an NG tube placed. Our service was consulted to manage patient's small bowel obstruction versus ileus. Recommend obtaining a KUB today. Continue NG tube for another 24 hours. Patient has had an output of 800 cc of light brownish fluid within the canister since beginning of night assistant last night. We will allow for patient to continue to decompress her abdomen today, reassess patient tomorrow and plan tomorrow possibly obtaining a small bowel follow-through. The plan was explained to the patient's son and daughter, who relayed the information to the patient. Patient and family are in agreement with the plan. Patient and family have had the opportunity to ask and have questions answered and verbally agree with the proposed plan. Thank you for allowing us to participate in this patient's care. HPI Consult Data Date of Consult: 01/05/25 HPI Narrative Reason for Consultation: Small bowel obstruction versus ileus HPI Narrative: KIERRA FOSTER, is a 64 F who who speaks very little Amharic. Patient's daughter and son provide all of the patient's history. Patient presented with increased shortness of breath with brown-colored sputum, wheezing and dyspnea at rest and with activity. She tested positive for influenza A. She has a history of cirrhosis post TIPS procedure, cholecystectomy, esophageal varices, COPD and chronic respiratory failure on oxygen via nasal canula. Today is patient's day #6 of her hospitalization. She was noted to develop nausea and vomiting on the . An NG tube was placed and removed the . Patient had reoccurrence of her nausea, vomiting and NG tube was replaced. KUB was obtained on 01/04, demonstrating Mild diffuse gaseous dilation of the colon which may relate to partial obstruction or ileus. Some contrast distally within the rectum. Fecal retention in the cecum and sigmoid colon. Tips shunt in place. Elevated right hemidiaphragm. Bibasilar airspace opacities. No gross pneumoperitoneum. Patient describes her abdominal symptoms as pressure and cramping. She notes her last bowel movement was last night. Per patient's daughter it was diarrhea. Patient has not been passing flatus. Patient has had a previous incisional hernia repair at her previous site, TIPS procedure, appendectomy and cholecystectomy. Patient denies any other sick contacts at home with respiratory or GI issues. Patient denies having these symptoms previously. Patient's CT scan on 01/02 demonstrated: IMPRESSION: 1. Somewhat limited exam as above. Alternating areas of mild small bowel dilatation without single convincing/dominant transition point noting that distorted small and large bowel loops are difficult to trace. Findings favor ileus however early or partial small bowel obstruction can not be excluded. Continued follow-up to evaluate for distal propagation of orally administered contrast may be helpful. 2. Findings in the left lung base concerning for pneumonia. Chronic findings in the right lung base may reflect sequela of previous necrotizing pneumonia with or without ongoing pneumonia. New small left and trace right pleural effusions. 3. Cirrhosis with sequela of portal hypertension. Anasarca, with considerably decreased now small volume free intraperitoneal fluid, increased body wall edema, and new pleural effusions as above. If there is clinical concern for HCC (elevated AFP), recommend outpatient multiphase hepatic protocol MRI abodmen with and without contrast, versus CT if there is a contraindication. 4. Consider outpatient pelvic for above endometrial findings. 5. Additional description as above. [facility] Medical History Uses wheelchair Non-smoker Tuberculosis Wears glasses Walker as ambulation aid Jaundice Difficulty swallowing Nausea S/P abdominal paracentesis Loss of consciousness Chronic cough On home oxygen therapy Shortness of breath on exertion Chronic anemia Peripheral edema Abdominal ascites Emphysema lung Hypoxia Lung bullae Lactic acidosis Appendicitis Cholecystitis Bronchitis Home Medications ?Medication ?Instructions ?Recorded ?Last Taken ?Type spironolactone 100 mg tablet 200 mg PO DAILY 04/17/24 Unknown History torsemide 20 mg tablet 40 mg PO BID 04/17/24 Unknown History albuterol sulfate 2.5 mg/3 mL 2.5 mg continuous nebulization BID 12/30/24 Unknown History (0.083 %) solution for nebulization lactulose 10 gram/15 mL oral 30 ml PO TID 12/30/24 Unknown History solution midodrine 10 mg tablet 20 mg PO Q6H 12/30/24 Unknown History polyethylene glycol 3350 17 17 g PO BID 12/30/24 Unknown History gram/dose oral powder (ClearLax) sennosides 8.6 mg capsule (senna) 17.2 mg PO BID 12/30/24 Unknown History Allergy/AdvReac Type Severity Reaction Status Date / Time No Known Allergies Allergy Verified 12/30/24 11:53 Surgical History S/P laparoscopic cholecystectomy Social History Smoking Status: Never smoker alcohol intake: never substance use type: does not use ROS Constitutional Constitutional: Reports systems reviewed and no addt'l complaints, except as documented Eyes Eyes: Reports systems reviewed and no addt'l complaints, except as documented ENT HEENT: Reports systems reviewed and no addt'l complaints, except as documented Cardiovascular Cardiovascular: Reports systems reviewed and no addt'l complaints, except as documented Respiratory/Chest Respiratory/Chest: Reports systems reviewed and no addt'l complaints, except as documented Gastrointestinal Gastrointestinal: Reports systems reviewed and no addt'l complaints, except as documented Genitourinary Genitourinary: Reports systems reviewed and no addt'l complaints, except as documented Musculoskeletal Musculoskeletal: Reports systems reviewed and no addt'l complaints, except as documented Integumentary Integumentary: Reports systems reviewed and no addt'l complaints, except as documented Neurologic Neurologic: Reports systems reviewed and no addt'l complaints, except as documented Psychiatric Psychiatric: Reports systems reviewed and no addt'l complaints, except as documented Endocrine Endocrinology: Reports systems reviewed and no addt'l complaints, except as documented Hematologic/Lymphatic Hematologic/Lymphatic: Reports systems reviewed and no addt'l complaints, except as documented Allergic/Immunologic Allergic/Immunologic: Reports systems reviewed and no addt'l complaints, except as documented Physical Exam Const alert, oriented x3 and no apparent distress HEENT normocephalic and head/scalp atraumatic HEENT Narrative: NG tube in place Eyes PERRL Neck full ROM Chest inspection of chest normal Resp normal respiratory effort Auscultation: wheezes throughout Cardio regular rate and regular rhythm GI GI Narrative: Abdomen- soft. Umbilical hernia noted with subcutaneous fat noted. Tenderness to palpation at the umbilicus. no CVA tenderness Back/Spine no CVA tenderness Extremity normal to inspection Skin no rashes or lesions noted Neuro no focal motor deficits and no sensory deficits noted Psych mental status grossly normal and cooperative Lab / Micro Data 01/05/25 05:23 01/05/25 05:23 Labs: Laboratory Results - last 24 hr 01/04/25 15:50: Sodium 145, Potassium 2.9 L, Chloride 94 L, Carbon Dioxide 41.6 H, Anion Gap 10, BUN 26 H, Creatinine 1.12, Estim Creat Clear Calc 48.05 L, Est GFR (MDRD) Non-Af 56 L, BUN/Creatinine Ratio 22.9 H, Glucose 198 H, Calcium 6.8 L 01/04/25 18:30: Random Vancomycin 17.2 H 01/05/25 05:23: WBC 2.0 L, RBC 3.77 L, Hgb 10.9 L, Hct 36.0 L, MCV 95.5, MCH 28.9, MCHC 30.3 L, RDW Std Deviation 62.3 H, RDW Coeff of Blas 17.7 H, Plt Count 37 L*, MPV 9.2, Immature Gran % (Auto) 1.500 H, Neut % (Auto) 81.7 H, Lymph % (Auto) 7.9 L, [place] % (Auto) 8.9, Eos % (Auto) 0.0, Baso % (Auto) 0.0, Absolute Neuts (auto) 1.7 L, Absolute Lymphs (auto) 0.16 L, Nucleated RBC % 0, Differential Comment SCANNED, Diff Path Review February foll, Platelet Estimate MKD DEC, Target Cells 1+, Sodium 147 H, Potassium 2.9 L, Chloride 93 L, Carbon Dioxide 42.3 H, Anion Gap 12, BUN 23 H, Creatinine 1.10, Estim Creat Clear Calc 49.36 L, Est GFR (MDRD) Non-Af 57 L, BUN/Creatinine Ratio 20.8 H, Glucose 165 H, Calcium 6.9 L, Phosphorus 3.5, Magnesium 2.0, Total Bilirubin 3.89 H, AST 53 H, ALT 26, Alkaline Phosphatase 173 H, Total Protein 7.8, Albumin 2.6 L, Globulin 5.3 H, Albumin/Globulin Ratio 0.5 L Micro: Microbiology 12/30/24 15:07 Blood Culture (Wb) - Anticubital Left Blood Culture - Final No growth in 5 days. 12/30/24 15:35 Blood Culture (Wb) - Anticubital Right Blood Culture - Final No growth in 5 days. Imaging Radiology Impression Abdomen X-Ray 01/04/25 17:03 IMPRESSION: Mild diffuse gaseous dilation of the colon which may relate to partial obstruction or ileus. Some contrast distally within the rectum. Fecal retention in the cecum and sigmoid colon. Tips shunt in place. Elevated right hemidiaphragm. Bibasilar airspace opacities. No gross pneumoperitoneum. Reading Location: [facility] KUB X-Ray 01/04/25 19:00 IMPRESSION: Enteric tube terminates in the stomach. Otherwise, no significant interval change. Reading Location: [facility] Charges/Coding Visit Charges Inpatient E&M: 40759 Init Hosp L2
[2025-01-05] MEDS: Pantoprazole Sodium 40 MG in 0.9% Normal Saline (100mL MB+) 100 ML 330 MG IV ×2 (12:20→22:40)
[2025-01-05] MEDS: 0.9% Saline Lock 10 ML Syringe IV ×2 (12:23→22:41)
--- NOTE | 2025-01-05 15:05 | RAD_ITS ---
PROCEDURE: ABDOMEN SINGLE VIEW (PORTABLE) REASON FOR EXAM: Abdominal distension TECHNIQUE: Single AP view abdomen was obtained. COMPARISON: 01/04/2025 FINDINGS: Similar diffuse gaseous dilatation of the colon 25.9 cm. Contrast remains within the rectosigmoid. Suspect mild gaseous distention of small-bowel loops, also similar. Redemonstrated tips, enteric tube, and suspected hepatic embolization coils. Redemonstrated elevation of the right hemidiaphragm with right basilar opacities. Lumbar spondylosis. RAD/Abdomen Single View (Portable) IMPRESSION: 1. No significant interval change. Findings again suggestive of ileus or parti al obstruction. 2. Additional description as above. Reading Location: [facility]
[2025-01-06] VITALS (10 sets, daily range): BP systolic 109–121; BP diastolic 45–70; PULSE 80–113; RESP 15–19; TEMP 36.2–36.7; O2SAT 88–100; BMI 35.5
[2025-01-06] MEDS: 0.9% Saline Lock 10 ML Syringe IV ×4 (05:00→22:13)
[2025-01-06] MEDS: Methylprednisolone Sod Succ 40 MG/ML VIAL IV ×2 (05:00→14:51)
--- NOTE | 2025-01-06 06:00 | RAD_ITS ---
PROCEDURE: ABD DECUB AND/OR ERECT(PORTABL REASON FOR EXAM: SMALL BOWEL OBSTRUCTION TECHNIQUE: Single view abdomen. COMPARISON: CT abdomen/pelvis dated 01/02/2025. FINDINGS: Limited examination due to over penetration. Enteric tube is present with tip overlying the stomach the cardiac silhouette is partially visualized. A TIPS stent is visualized. Probable rectal tube is noted. There are several gas-filled bowel loops within the abdomen. Some of these bowel loops measure up to 4.9 cm within the left upper abdominal quadrant and 7.8 cm within the right lower abdominal quadrant. Gas and stool seen within the rectum. RAD/Abd Decub and/or Erect(Portabl IMPRESSION: Prominent bowel loops within the abdomen is nonspecific. This may be due to il eus versus developing bowel obstruction. Reading Location: [id number]
[2025-01-06] MEDS: Ipratropium/Albuterol Sulfate 3 ML AMPUL.NEB INHALATION ×3 (07:23→14:54)
[2025-01-06 09:21] LABS: Hemoglobin 10.6 g/dL (12.0-15.0); Mean Corp Hgb Conc 30.3 g/dL (32-36); Mean Corpuscular Hgb 28.7 pg (27.0-32.0); Mean Corpuscular Volume 94.9 fL (81-99); POSITIVE COUNT YES; RBC Distribution Width CV 17.8 % (11.6-14.6); RBC Distribution Width SD 61.6 fl (35.1-43.9); Red Blood Count 3.69 M/mm3 (4.2-5.4)
[2025-01-06] MEDS: Pantoprazole Sodium 40 MG in 0.9% Normal Saline (100mL MB+) 100 ML 330 MG IV ×2 (09:27→22:11)
[2025-01-06 09:32] LABS: Platelet Count 34 K/mm3 (150-450); Scan Indicated on CBC? Y/N YES- FLAGS NOTED
[2025-01-06 09:53] LABS: ALB/GLOB Ratio 0.5 RATIO (0.9-2.4); AST(SGOT) 48 U/L (<=31); Alanine Aminotransfer ALT/SGPT 25 U/L (<=34); Albumin, Serum 2.6 g/dL (3.4-4.8); Alkaline Phosphatase 166 U/L (35-104); BUN 28 mg/dL (4-19); BUN/Creat Ratio 31.9 RATIO (10-20); Calcium,Total 7.2 mg/dL (7.6-11.0); Chloride 93 mmol/L (98-108); Creatinine, Serum 0.88 mg/dL (0.70-1.20); EST Glomerular Filtration Rate 74 (>60); Estimated Creatinine Clearance 65.76 ml/min (50-250); Globulin 4.8 g/dL (2.2-4.2); Glucose 136 mg/dL (70-99); Potassium 3.5 mmol/L (3.3-5.1); Protein, Total 7.4 g/dL (5.9-8.4); Sodium Level 146 mmol/L (133-145)
[2025-01-06 10:01] LABS: Carbon Dioxide 45.5 mmol/L (21.0-32.0)
--- NOTE | 2025-01-06 10:15 | NURSING ---
Lab and chem called me to report lab values, plt at 34 and Carbon Dioxide at 45.5 but they are still pending in the computer after 15 min of being told the values. Scott from Chem said he notified his Senior Financial Analyst to let him know that it is not crossing over into the computer.
[2025-01-06 10:18] LABS: Pathologist Review May foll
--- NOTE | 2025-01-06 10:55 | PCM.PN.HOSP ---
Reason for Visit Reason for Visit: Diagnoses Unspecified infectious disease (12/30/24) Acute and chronic respiratory failure with hypoxia (12/30/24) Acute and chronic respiratory failure with hypercapnia (12/30/24) Unspecified intestinal obstruction, unspecified as to partial versus complete obstruction (12/30/24) Ileus, unspecified (12/30/24) Subjective Subjective Saw patient at bedside this morning, daughter present. Patient is Uzbek-speaking, daughter acted as trust vault custodian. Patient was sitting up in bedside chair but was fatigued appearing and mildly uncomfortable appearing due to NG tube. She denied any abdominal pain this morning. Stated that she was starting to feel hungry. Denied any other concerns today. Objective Data Objective Data Vital Signs: Vital Signs Temp Pulse Resp BP Pulse Ox O2 Del Method O2 Flow Rate 97.4 F L 85 18 112/69 100 Room Air 2 01/06/25 09:29 01/06/25 10:29 01/06/25 10:29 01/06/25 09:29 01/06/25 09:29 01/06/25 09:29 01/06/25 08:38 FiO2 30 01/01/25 21:10 Oxygen Flow Rate (L/min) 2 Oxygen Delivery Method Room Air Weight: 85.4 kg Body Mass Index (BMI) 35.5 Intake & Output: Intake and Output for Last 24 Hours 01/05/25 01/05/25 01/06/25 00:59 23:59 23:59 Intake Total 880 / 880 960 / 960 550 / 550 Output Total 200 / 200 1625 / 1625 1300 / 1300 Balance 680 / 680 -665 / -665 -750 / -750 Lab / Micro Data 01/06/25 09:13 01/06/25 09:13 Labs: Laboratory Results - last 24 hr 01/06/25 09:13: WBC 3.0 L, RBC 3.69 L, Hgb 10.6 L, Hct 35.0 L, MCV 94.9, MCH 28.7, MCHC 30.3 L, RDW Std Deviation 61.6 H, RDW Coeff of Blas 17.8 H, Plt Count 34 L*, MPV TNP, Differential Comment , Diff Path Review February, Sodium 146 H, Potassium 3.5, Chloride 93 L, Anion Gap TNP, BUN 28 H, Creatinine 0.88, Estim Creat Clear Calc 65.76, Est GFR (MDRD) Non-Af 74, BUN/Creatinine Ratio 31.9 H, Glucose 136 H, Calcium 7.2 L, Total Bilirubin 4.80 H, AST 48 H, ALT 25, Alkaline Phosphatase 166 H, Total Protein 7.4, Albumin 2.6 L, Globulin 4.8 H, Albumin/Globulin Ratio 0.5 L Micro: Microbiology 12/30/24 15:07 Blood Culture (Wb) - Anticubital Left Blood Culture - Final No growth in 5 days. 12/30/24 15:35 Blood Culture (Wb) - Anticubital Right Blood Culture - Final No growth in 5 days. 12/30/24 14:25 Sputum, Expectorated/Coughed Gram Stain - Final 12/30/24 14:25 Sputum, Expectorated/Coughed Respiratory Culture - Final Enterobacter spp. 12/31/24 12:10 Urine, Clean Catch Legionella Antigen - Final 12/31/24 12:10 Urine, Clean Catch Streptococcus pneumoniae Antigen (M - Final 12/31/24 11:25 Mucosa - Nasopharyngeal SARS-CoV-2, Influenza & RSV (PCR) - Final Influenzae A Radiography Diagnostic Testing: Radiology Impression KUB X-Ray 01/05/25 15:05 IMPRESSION: 1. No significant interval change. Findings again suggestive of ileus or partial obstruction. 2. Additional description as above. Reading Location: [facility] Abdomen X-Ray 01/06/25 06:00 IMPRESSION: Prominent bowel loops within the abdomen is nonspecific. This may be due to ileus versus developing bowel obstruction. Reading Location: [id number] Physical Exam Const alert and oriented x3 Constitutional Narrative: Upper middle-aged female, class I obesity, fatigued appearing, mildly uncomfortable appearing due to NG tube, otherwise sitting up in bedside chair and answering questions appropriately. General Appearance: cooperative HEENT normocephalic, head/scalp atraumatic, hearing grossly normal bilaterally and nasal mucous membranes and turbinates normal HEENT Narrative: NG tube in place. Eyes PERRL, EOMs intact bilaterally and conjunctivae normal Neck full ROM Chest inspection of chest normal Resp normal respiratory effort and no use of accessory muscles Resp Narrative: Breathing comfortably on 2 L nasal cannula at rest. Mildly decreased breath sounds in lung bases, no wheezing or crackles noted. Cardio regular rate, regular rhythm, no murmurs and peripheral pulses 2+ throughout GI GI Narrative: Abdomen mildly tender to palpation diffusely but otherwise soft and nondistended. Back/Spine normal ROM Extremity normal to inspection and no pedal edema Skin no rashes or lesions noted Neuro moves all extremities and no focal motor deficits Speech: speech normal Motor Exam: strength 5/5 throughout Psych mental status grossly normal Assessment & Plan Assessment/Plan (1) Acute on chronic respiratory failure with hypoxia and hypercapnia: PLAN: Plan Patient is a 64-year-old female who presented [facility] ED on 12/30/2024 with worsening shortness of breath. 1. Acute on chronic hypoxic and hypercapnic respiratory failure secondary to influenza A infection and superimposed bacterial pneumonia ? Application Security Engineer followed. Positive for influenza A on 12/25 at PCP office. Is on home 2 L nasal cannula. Required BiPAP on admit to maintain appropriate oxygen saturations. Chest x-ray showed acute bilateral infiltrates superimposed on chronic changes. Sputum culture grew 2+ Enterobacter. Treated with IV steroids, scheduled DuoNebs and IV antibiotics with good improvement. Continue p.o. prednisone, DuoNebs as needed and p.o. Levaquin for now. Plan to complete 7-day course of antibiotics total. Weaned down to 2 L nasal cannula by 01/06, continue to wean as able. 2. Partial small bowel obstruction/ileus ? General Surgery following. Patient developed nausea with vomiting and abdominal distention during hospitalization with concern for small bowel obstruction. NG tube was placed with significant lightish brown output. KUB on 01/06 showed prominent bowel loops secondary to either ileus versus developing bowel obstruction. Per surgery, appears more consistent with ileus. Will continue NG tube with decompression of the bowel until tomorrow and then reassess for small bowel follow-through versus clamping trial of NG tube. Continue n.p.o. status. Continue mobilization as able. 3. Hypokalemia and hypomagnesemia ? Presume secondary to poor p.o. intake. Repleting as needed. 4. Pancytopenia ? Suspected multifactorial from acute infection and cirrhosis. Hemoglobin stable at baseline 08-08. WBC count stable around 3. Platelet count was slow downtrend since admission, baseline was around 60-70 and has now downtrended to 34. Continue to monitor CBC daily. SCDs for DVT prophylaxis. 5. Suspected protein calorie malnutrition ? Nutrition consulted. Low albumin noted and suspected malnutrition in setting of poor p.o. intake recently. Appreciate nutrition recommendations. 6. Nonalcoholic fatty liver disease with complications including cirrhosis with ascites and esophageal varices s/p TIPS procedure ? Follows with Dr. Estrada. Has history of frequent paracenteses here. Last paracentesis was done in August with 7550 ml of fluid removed. No significant ascites noted on this admit, no need for paracentesis. Continue home torsemide, Aldactone and lactulose. 7. Acute on chronic debility ? PT/OT/case management following. Likely planning for home with home health care on discharge. 8. Class I obesity ? BMI 31 on admit. Complicates hospital course, care and prognosis. DVT prophylaxis: SCDs CODE STATUS: Full code, verified Expected disposition: TBD Total clinical time spent by myself addressing the patient's medical issues, reviewing all the data, and collaborating with patient's care team: 35 minutes. Charges/Coding Visit Charges Inpatient E&M: 32849 Subs Hosp L2
--- NOTE | 2025-01-06 12:14 | PCM.PN.SRG ---
Subjective Subjective Patient evaluate sitting comfortably in the chair. Patient notes less abdominal pain/pressure than yesterday. She notes feeling hungry today. She states she has passed flatus from her bottom. She denies any bowel movements. She denies feeling nauseated. Objective Data Objective Data Vital Signs: Vital Signs Temp Pulse Resp BP Pulse Ox O2 Del Method O2 Flow Rate 97.4 F L 85 18 112/69 100 Room Air 2 01/06/25 09:29 01/06/25 10:29 01/06/25 10:29 01/06/25 09:29 01/06/25 09:29 01/06/25 09:29 01/06/25 08:38 FiO2 30 01/01/25 21:10 Oxygen Flow Rate (L/min) 2 Oxygen Delivery Method Room Air Weight: 188 lb 4.396 oz Body Mass Index (BMI) 35.5 Intake & Output: Intake and Output for Last 24 Hours 01/05/25 01/05/25 01/06/25 00:59 23:59 23:59 Intake Total 880 / 880 960 / 960 580 / 580 Output Total 200 / 200 1625 / 1625 1300 / 1300 Balance 680 / 680 -665 / -665 -720 / -720 Lab / Micro Data 01/06/25 09:13 01/06/25 09:13 Labs: Laboratory Results - last 24 hr 01/06/25 09:13: WBC 3.0 L, RBC 3.69 L, Hgb 10.6 L, Hct 35.0 L, MCV 94.9, MCH 28.7, MCHC 30.3 L, RDW Std Deviation 61.6 H, RDW Coeff of Blas 17.8 H, Plt Count 34 L*, MPV TNP, Differential Comment , Diff Path Review February, Sodium 146 H, Potassium 3.5, Chloride 93 L, Anion Gap TNP, BUN 28 H, Creatinine 0.88, Estim Creat Clear Calc 65.76, Est GFR (MDRD) Non-Af 74, BUN/Creatinine Ratio 31.9 H, Glucose 136 H, Calcium 7.2 L, Total Bilirubin 4.80 H, AST 48 H, ALT 25, Alkaline Phosphatase 166 H, Total Protein 7.4, Albumin 2.6 L, Globulin 4.8 H, Albumin/Globulin Ratio 0.5 L Micro: Microbiology 12/30/24 15:07 Blood Culture (Wb) - Anticubital Left Blood Culture - Final No growth in 5 days. 12/30/24 15:35 Blood Culture (Wb) - Anticubital Right Blood Culture - Final No growth in 5 days. 12/30/24 14:25 Sputum, Expectorated/Coughed Gram Stain - Final 12/30/24 14:25 Sputum, Expectorated/Coughed Respiratory Culture - Final Enterobacter spp. 12/31/24 12:10 Urine, Clean Catch Legionella Antigen - Final 12/31/24 12:10 Urine, Clean Catch Streptococcus pneumoniae Antigen (M - Final 12/31/24 11:25 Mucosa - Nasopharyngeal SARS-CoV-2, Influenza & RSV (PCR) - Final Influenzae A Radiography Diagnostic Testing: Radiology Impression KUB X-Ray 01/05/25 15:05 IMPRESSION: 1. No significant interval change. Findings again suggestive of ileus or partial obstruction. 2. Additional description as above. Reading Location: [facility] Abdomen X-Ray 01/06/25 06:00 IMPRESSION: Prominent bowel loops within the abdomen is nonspecific. This may be due to ileus versus developing bowel obstruction. Reading Location: [id number] Physical Exam HEENT HEENT Narrative: NG tube intact GI GI Narrative: Abdomen- soft, generalized tenderness with palpation. Umbilical hernia noted. Assessment & Plan Assessment/Plan (1) Ileus due to infection: PLAN: I am seeing this patient in conjunction with Dr. Celis. He will independently evaluate this patient. KUB this morning demonstrated prominent bowel loops within the abdomen, nonspecific bowel gas pattern consistent more with an ileus picture. Continue with decompression of the bowel until tomorrow We will reassess tomorrow whether to pursue a small bowel follow-through versus clamping trial of the NG tube Continue NPO at this time It is encouraging to know that patient is beginning to have an appetite Continue to encourage sitting in the chair and ambulation We will continue to monitor this patient Charges/Coding Visit Charges Inpatient E&M: 60216 [facility] Hosp L1
--- NOTE | 2025-01-06 13:00 | CHAPLAIN ---
Type of Pastoral Visit _x__ Initial Visit ___ Follow-up Visit ___ On-call Visit ___ General Patient Visit ___ Spiritual Assessment ___ Family Conference ___ Bereavement ___ Rapid Response ___ Code Blue ___ Other (describe below) Pastoral Care Referral From ___ Patient _x__ Family ___ Nurse ___ Physician ___ Network Relay Tester ___ Film Vault Supervisor ___ Other (describe below) Sacrament/Intervention _x__ Active listening ___ Anointing ___ Mandaeism ___ Bereavement ___ Communion ___ Katherine exploration ___ ___ Life review _x__ Prayer ___ Reconciliation ___ Sacrament of Sick _x__ Supportive presence ___ Wedding ___ Other (describe below) Pastoral Comments patient is a Singaporean only speaker but her daughter is in the room and she speaks clear [place] Verdean; patient is sitting up in the chair but has a nasal tube; offer of presence, help with needs, and a prayer; the pt welcomes a prayer through the interpretation; prayer is given; as prayer is given the patient prays also and continues after the radio operator finishes the prayer; daughter reports that pt is not in need of other intervention; pt repeats gracious
[2025-01-06] MEDS: Morphine 2 MG/ML Syringe IV (16:10)
[2025-01-06] MEDS: Ondansetron 4 MG/2 ML Vial IV (16:10)
[2025-01-06 23:33] LABS: Anion Gap 8 (5-15)
--- NOTE | 2025-01-07 00:04 | RAD_ITS ---
PROCEDURE: ABDOMEN SINGLE VIEW (PORTABLE) REASON FOR EXAM: NG PLACEMENT RECONFIRMATION TECHNIQUE: Single view abdomen. COMPARISON: 01/06/2025 FINDINGS: Nasogastric tube within the stomach. Gaseous prominence of bowel loops have decreased since the prior study. Elevation of the right hemidiaphragm, appearance of the visualized lungs, tips and embolization coil again noted. RAD/Abdomen Single View (Portable) IMPRESSION: Nasogastric tube within the stomach. Gaseous prominence of bowel loops have dec reased since the prior study.. Reading Location: [id number]
[2025-01-07] MEDS: Lactated Ringers 1,000 ML 100 ML IV (01:28)
[2025-01-07 01:44] VITALS: BP 106/60; PULSE 100; RESP 16; TEMP 36.5; O2SAT 100
[2025-01-07 02:00] LABS: Bedside Glucose 121 mg/dL (74-106)
[2025-01-07] MEDS: Morphine 2 MG/ML Syringe IV (02:10)
[2025-01-07 05:36] VITALS: BMI 34.5
[2025-01-07 07:24] VITALS: O2SAT 94
[2025-01-07 07:25] LABS: Hematocrit 30.7 % (37-47); Hemoglobin 9.4 g/dL (12.0-15.0); Mean Corp Hgb Conc 30.6 g/dL (32-36); Mean Corpuscular Hgb 29.1 pg (27.0-32.0); Mean Platelet Vol. 9.2 fl (6.2-12.0); POSITIVE COUNT YES; RBC Distribution Width CV 18.4 % (11.6-14.6); RBC Distribution Width SD 63.6 fl (35.1-43.9); Red Blood Count 3.23 M/mm3 (4.2-5.4); White Blood Count 3.2 K/mm3 (4.4-11.0)
[2025-01-07 07:29] LABS: Platelet Count 29 K/mm3 (150-450)
[2025-01-07 07:30] LABS: Scan Indicated on CBC? Y/N YES- FLAGS NOTED
[2025-01-07 07:45] VITALS: BP 113/56; PULSE 98; RESP 15; TEMP 36.7; O2SAT 100
[2025-01-07 08:13] LABS: Pathologist Review May foll
[2025-01-07 08:25] LABS: ALB/GLOB Ratio 0.6 RATIO (0.9-2.4); AST(SGOT) 49 U/L (<=31); Alanine Aminotransfer ALT/SGPT 25 U/L (<=34); Albumin, Serum 2.4 g/dL (3.4-4.8); Alkaline Phosphatase 143 U/L (35-104); BUN 31 mg/dL (4-19); BUN/Creat Ratio 39.7 RATIO (10-20); Calcium,Total 7.6 mg/dL (7.6-11.0); Chloride 97 mmol/L (98-108); Creatinine, Serum 0.77 mg/dL (0.70-1.20); EST Glomerular Filtration Rate 87 (>60); Globulin 4.1 g/dL (2.2-4.2); Glucose 139 mg/dL (70-99); Potassium 3.7 mmol/L (3.3-5.1); Protein, Total 6.6 g/dL (5.9-8.4); Sodium Level 151 mmol/L (133-145); Total Bilirubin 5.42 mg/dL (0.00-1.30)
--- NOTE | 2025-01-07 09:05 | PN.SURG_ITS ---
Subjective Subjective Patient evaluated resting comfortably in bed. Her daughter is at bedside helping to translate. Patient notes little to no abdominal pain. She notes feeling hungry. She states she has passed flatus multiple times. She denies any nausea, vomiting. She somehow obtained a clear liquids tray yesterday and had liquids including red jello which is seen in the canister this morning. She had approximately 200 cc output from the NG tube. She denies a bowel movement. KUB was obtained at midnight with notation of decreased bowel loops since the prior study. Objective Data Objective Data Vital Signs: Vital Signs Temp Pulse Resp BP Pulse Ox O2 Del Method O2 Flow Rate 97.7 F L 100 16 106/60 100 Nasal Cannula 2 01/07/25 01:44 01/07/25 01:44 01/07/25 01:44 01/07/25 01:44 01/07/25 01:44 01/07/25 04:24 01/07/25 04:24 FiO2 30 01/01/25 21:10 Oxygen Flow Rate (L/min) 2 Oxygen Delivery Method Nasal Cannula Weight: 182 lb 15.739 oz Body Mass Index (BMI) 34.5 Intake & Output: Intake and Output for Last 24 Hours 01/05/25 01/06/25 01/07/25 23:59 23:59 23:59 Intake Total 960 / 960 1710 / 1710 120 / 120 Output Total 1625 / 1625 1850 / 1850 400 / 400 Balance -665 / -665 -140 / -140 -280 / -280 Lab / Micro Data 01/07/25 06:39 01/07/25 06:39 Labs: Laboratory Results - last 24 hr 01/06/25 09:13: WBC 3.0 L, RBC 3.69 L, Hgb 10.6 L, Hct 35.0 L, MCV 94.9, MCH 28.7, MCHC 30.3 L, RDW Std Deviation 61.6 H, RDW Coeff of Blas 17.8 H, Plt Count 34 L*, MPV TNP, Differential Comment , Diff Path Review February, Sodium 146 H, Potassium 3.5, Chloride 93 L, Anion Gap 8, BUN 28 H, Creatinine 0.88, Estim Creat Clear Calc 65.76, Est GFR (MDRD) Non-Af 74, BUN/Creatinine Ratio 31.9 H, G lucose 136 H, Calcium 7.2 L, Total Bilirubin 4.80 H, AST 48 H, ALT 25, Alkaline Phosphatase 166 H, Total Protein 7.4, Albumin 2.6 L, Globulin 4.8 H, A lbumin/Globulin Ratio 0.5 L 01/07/25 01:36: POC Glucose 121 H 01/07/25 06:39: WBC 3.2 L, RBC 3.23 L, Hgb 9.4 L, Hct 30.7 L, MCV 95.0, MCH 29.1, MCHC 30.6 L, RDW Std Deviation 63.6 H, RDW Coeff of Blas 18.4 H, Plt Count 29 L*, MPV 9.2, Diff Path Review February, Sodium 151 H, Potassium 3.7, Chloride 97 L, Anion Gap 7, BUN 31 H, Creatinine 0.77, Estim Creat Clear Calc 74.00, Est GFR (MDRD) Non-Af 87, BUN/Creatinine Ratio 39.7 H, Glucose 139 H, Calcium 7.6, T otal Bilirubin 5.42 H, AST 49 H, ALT 25, Alkaline Phosphatase 143 H, Total Protein 6.6, Albumin 2.4 L, Globulin 4.1, Albumin/Globulin Ratio 0.6 L Micro: Microbiology 12/30/24 15:07 Blood Culture (Wb) - Anticubital Left Blood Culture - Final No growth in 5 days. 12/30/24 15:35 Blood Culture (Wb) - Anticubital Right Blood Culture - Final No growth in 5 days. 12/30/24 14:25 Sputum, Expectorated/Coughed Gram Stain - Final 12/30/24 14:25 Sputum, Expectorated/Coughed Respiratory Culture - Final Enterobacter spp. 12/31/24 12:10 Urine, Clean Catch Legionella Antigen - Final 12/31/24 12:10 Urine, Clean Catch Streptococcus pneumoniae Antigen (M - Final 12/31/24 11:25 Mucosa - Nasopharyngeal SARS-CoV-2, Influenza & RSV (PCR) - Final Influenzae A Radiography Diagnostic Testing: Radiology Impression KUB X-Ray 01/07/25 00:04 IMPRESSION: Nasogastric tube within the stomach. Gaseous prominence of bowel loops have decreased since the prior study.. Reading Location: [facility] Physical Exam GI GI Narrative: Abdomen- soft, slight tenderness with palpation. Bowel sounds present. Umbilical hernia present, reducible. Assessment & Plan Assessment/Plan (1) Ileus due to infection: PLAN: I am following this patient in conjunction with Dr. Celis. He will independently evaluate this patient. Remove NG tube Start clears Fleets enema to help initiate bowel movements We will continue to monitor this patient Charges/Coding Visit Charges Inpatient E&M: 16459 [facility] Hosp L1
[2025-01-07 09:25] LABS: Carbon Dioxide 47.2 mmol/L (21.0-32.0)
[2025-01-07] MEDS: Pantoprazole Sodium 40 MG in 0.9% Normal Saline (100mL MB+) 100 ML 330 MG IV ×2 (10:45→21:53)
[2025-01-07] MEDS: Dextrose 5%-Water (1000mL Bag) 1,000 ML 60 ML IV (12:45)
[2025-01-07] MEDS: Midodrine HCl 5 MG Tablet 20 MG PO ×2 (13:00→18:10)
[2025-01-07 13:45] VITALS: BP 121/62; PULSE 89; RESP 15; TEMP 36.4; O2SAT 99
[2025-01-07] MEDS: Lactulose 20 GM/30 ML UDC PO ×2 (15:57→22:00)
--- NOTE | 2025-01-07 16:52 | PN.HOSP_ITS ---
Subjective Subjective No issues overnight, she is passing gas. NG tube in place Objective Data Objective Data Vital Signs: Vital Signs Temp Pulse Resp BP Pulse Ox O2 Del Method O2 Flow Rate 97.6 F L 89 15 121/62 H 99 Nasal Cannula 2 01/07/25 13:45 01/07/25 13:45 01/07/25 13:45 01/07/25 13:45 01/07/25 13:45 01/07/25 14:00 01/07/25 14:00 FiO2 30 01/01/25 21:10 Oxygen Flow Rate (L/min) 2 Oxygen Delivery Method Nasal Cannula Weight: 182 lb 15.739 oz Body Mass Index (BMI) 34.5 Intake & Output: Intake and Output for Last 24 Hours 01/06/25 01/07/25 01/08/25 03:59 03:59 03:59 Intake Total 830 / 830 1690 / 1690 1520 / 1520 Output Total 1625 / 1625 1850 / 1850 750 / 750 Balance -795 / -795 -160 / -160 770 / 770 Lab / Micro Data 01/07/25 06:39 01/07/25 06:39 Labs: Laboratory Results - last 24 hr 01/06/25 09:13: Anion Gap 8 01/07/25 01:36: POC Glucose 121 H 01/07/25 06:39: WBC 3.2 L, RBC 3.23 L, Hgb 9.4 L, Hct 30.7 L, MCV 95.0, MCH 29.1, MCHC 30.6 L, RDW Std Deviation 63.6 H, RDW Coeff of Blas 18.4 H, Plt Count 29 L*, MPV 9.2, Diff Path Review February, Sodium 151 H, Potassium 3.7, Chloride 97 L, Carbon Dioxide 47.2 H*, Anion Gap TNP, BUN 31 H, Creatinine 0.77, Estim Creat Clear Calc 74.00, Est GFR (MDRD) Non-Af 87, BUN/Creatinine Ratio 39.7 H, G lucose 139 H, Calcium 7.6, Total Bilirubin 5.42 H, AST 49 H, ALT 25, Alkaline Phosphatase 143 H, Total Protein 6.6, Albumin 2.4 L, Globulin 4.1, A lbumin/Globulin Ratio 0.6 L Micro: Microbiology 12/30/24 15:07 Blood Culture (Wb) - Anticubital Left Blood Culture - Final No growth in 5 days. 12/30/24 15:35 Blood Culture (Wb) - Anticubital Right Blood Culture - Final No growth in 5 days. 12/30/24 14:25 Sputum, Expectorated/Coughed Gram Stain - Final 12/30/24 14:25 Sputum, Expectorated/Coughed Respiratory Culture - Final Enterobacter spp. 12/31/24 12:10 Urine, Clean Catch Legionella Antigen - Final 12/31/24 12:10 Urine, Clean Catch Streptococcus pneumoniae Antigen (M - Final 12/31/24 11:25 Mucosa - Nasopharyngeal SARS-CoV-2, Influenza & RSV (PCR) - Final Influenzae A Radiography Diagnostic Testing: Radiology Impression KUB X-Ray 01/07/25 00:04 IMPRESSION: Nasogastric tube within the stomach. Gaseous prominence of bowel loops have decreased since the prior study.. Reading Location: [facility] Physical Exam Narrative General: Alert, Oriented x3, Cooperative, No apparent distress HEENT: Atraumatic, PERRLA, EOMI, Normocephalic, NG tube in place Oral: Moist Mucosa Neck: Supple, No JVD Lungs: Diminished, Normal air movement, No rhonchi, No wheeze, No rales Cardiovascular: Regular rate, Regular Rhythm, Normal S1, Normal S2, No murmurs Abdomen: Soft, Non Tender, Non-Distended, No Hepato-splenomegaly Extremities: No edema, Capillary Refill Less than 3 Seconds Skin: No rashes, No breakdown Musculoskeletal: No Tenderness to Palpation of Joints or Extremities Neurological: No focal neurological deficits, Motor Exam 5/5 strength throughout, Sensory exam intact to light touch and pain Psych/Mental Status: Normal Affect, Appropriate Assessment & Plan Assessment/Plan (1) Acute on chronic respiratory failure with hypoxia and hypercapnia: PLAN: Plan 1. Acute on chronic hypoxic and hypercapnic respiratory failure secondary to influenza A infection and superimposed bacterial pneumonia ? Kelp Gatherer followed. Positive for influenza A on 12/25 at PCP office. Is on home 2 L nasal cannula. Required BiPAP on admit to maintain appropriate oxygen saturations. Chest x-ray showed acute bilateral infiltrates superimposed on chronic changes. Sputum culture grew 2+ Enterobacter. Treated with IV steroids, scheduled DuoNebs and IV antibiotics with good improvement. Continue p.o. prednisone, DuoNebs as needed and p.o. Levaquin for now. Plan to complete 7-day course of antibiotics total. Weaned down to 2 L nasal cannula by 01/06, continue to wean as able. 01/07/2025: She has not received any of her antibiotics for the last 3 days as they were continued as p.o. and it does not appear that it was ever changed to IV and nursing was just charting not given, she did receive 5 days of vancomycin and Zosyn as she received 1 day of p.o. Levaquin on 01/04/2025 2. Partial small bowel obstruction/ileus ? General Surgery following. Patient developed nausea with vomiting and abdominal distention during hospitalization with concern for small bowel obstruction. NG tube was placed with significant lightish brown output. KUB on 01/06 showed prominent bowel loops secondary to either ileus versus developing bowel obstruction. Per surgery, appears more consistent with ileus. Will continue NG tube with decompression of the bowel until tomorrow and then reassess for small bowel follow-through versus clamping trial of NG tube. Continue n.p.o. status. Continue mobilization as able. 01/07/2025: Awaiting general surgery's evaluation plan for possible NG tube clamping or removal 3. Hypokalemia and hypomagnesemia ? Presume secondary to poor p.o. intake. Repleting as needed. 01/07/2025: Hypernatremia, will start D5W and recheck in the morning, this is likely related to probable dehydration given her n.p.o. status with her small bowel obstruction. 4. Pancytopenia ? Suspected multifactorial from acute infection and cirrhosis. Hemoglobin stable at baseline -. WBC count stable around 3. Platelet count was slow downtrend since admission, baseline was around 60-70 and has now downtrended to 34. Continue to monitor CBC daily. SCDs for DVT prophylaxis. 01/07/2025: Platelets are down to 29, will continue to monitor it is felt that her pancytopenia is reactive to her acute infection as well as her history of cirrhosis. Would recommend outpatient monitoring with hematology 5. Suspected protein calorie malnutrition ? Nutrition consulted. Low albumin noted and suspected malnutrition in setting of poor p.o. intake recently. Appreciate nutrition recommendations. 6. Nonalcoholic fatty liver disease with complications including cirrhosis with ascites and esophageal varices s/p TIPS procedure ? Follows with Dr. Estrada. Has history of frequent paracenteses here. Last paracentesis was done in August with 7550 ml of fluid removed. No significant ascites noted on this admit, no need for paracentesis. Continue home torsemide, Aldactone and lactulose. 7. Acute on chronic debility ? PT/OT/case management following. Likely planning for home with home health care on discharge. 8. Class I obesity ? BMI 31 on admit. Complicates hospital course, care and prognosis. DVT: SCDs Charges/Coding Visit Charges Inpatient E&M: 60995 Subs Hosp L2
[2025-01-07] MEDS: Fleet Enema 133 ML RC (18:07)
[2025-01-07] MEDS: Potassium Chloride Oral Tablet 20 MEQ PO (18:11)
[2025-01-07] MEDS: levoFLOXacin 500 MG Tablet PO (20:48)
[2025-01-07] MEDS: Magnesium Chloride 64 MG Delay Rel.Tablet 128 MG PO (21:52)
[2025-01-07] MEDS: Senna Tablet 2 TABLET PO (21:52)
[2025-01-07] MEDS: Polyethylene Glycol 3350 17 GM PACKET PO (21:52)
[2025-01-07 23:20] VITALS: BP 109/69; PULSE 87; RESP 16; TEMP 36.8; O2SAT 100
[2025-01-08 02:55] VITALS: PULSE 108; RESP 18; O2SAT 95
[2025-01-08] MEDS: Ipratropium/Albuterol Sulfate 3 ML AMPUL.NEB INHALATION (02:55)
[2025-01-08 04:45] VITALS: BP 108/60; PULSE 82; RESP 18; TEMP 36.6; O2SAT 96
[2025-01-08 05:58] LABS: Absolute Lymphocyte Count 0.21 X10^3/uL (0.83-4.51); Absolute Neutrophil Count 2.2 X10^3/uL (2.0-7.7); Eosinophil# 0.03 X10^3/uL; Eosinophils% 1.1 % (0-5); Hematocrit 27.6 % (37-47); Hemoglobin 8.4 g/dL (12.0-15.0); Lymphocyte # 0.21 X10^3/ul (0.83-4.51); Lymphocyte % 7.4 % (19-41); Mean Corp Hgb Conc 30.4 g/dL (32-36); Mean Corpuscular Hgb 29.2 pg (27.0-32.0); Mean Corpuscular Volume 95.8 fL (81-99); Mean Platelet Vol. 10.6 fl (6.2-12.0); Monocyte# 0.33 X10^3/uL; Monocyte% 11.7 % (0-10); NRBC Flagged by Analyzer 0 % (0-5); Neutrophil # 2.23 X10^3/uL (2.7-7.7); Neutrophil % 79.1 % (47-70); POSITIVE COUNT YES; POSITIVE DIFFERENTIAL YES; RBC Distribution Width CV 18.3 % (11.6-14.6); RBC Distribution Width SD 63.1 fl (35.1-43.9); Red Blood Count 2.88 M/mm3 (4.2-5.4); White Blood Count 2.8 K/mm3 (4.4-11.0)
[2025-01-08] MEDS: Midodrine HCl 5 MG Tablet 20 MG PO ×2 (05:59→12:28)
[2025-01-08] MEDS: Dextrose 5%-Water (1000mL Bag) 1,000 ML 60 ML IV ×2 (05:59→22:34)
[2025-01-08] MEDS: Lactulose 20 GM/30 ML UDC PO ×3 (05:59→21:06)
[2025-01-08 06:00] VITALS: BMI 34.6
[2025-01-08 06:12] LABS: Differential Indicated SCAN CRITERIA MET; Platelet Count 26 K/mm3 (150-450)
[2025-01-08 06:39] LABS: Anisocytosis 1+; Differential Comment SCANNED; Ovalocyte 1+; Pathologist Review May foll; Platelet Estimate MKD DEC (ADEQ); Schistocytes RARE; Target Cells RARE
[2025-01-08 07:45] VITALS: O2SAT 96
--- NOTE | 2025-01-08 08:04 | PN.SURG_ITS ---
Subjective Subjective Patient evaluated resting comfortably in bed. Her daughter is present and helps with communication as patient speaks very little Vietnamese. Patient denies any abdominal pain. She denies any nausea, vomiting with diet. Tolerating clear liquids. She continues to pass flatus and has had multiple loose bowel movements. Enema was given yesterday. Patient is also given Miralax and Senna twice daily as well. Objective Data Objective Data Vital Signs: Vital Signs Temp Pulse Resp BP Pulse Ox O2 Del Method O2 Flow Rate 97.9 F 82 18 108/60 96 Nasal Cannula 2 01/08/25 04:45 01/08/25 04:45 01/08/25 04:45 01/08/25 04:45 01/08/25 04:45 01/08/25 05:04 01/08/25 05:04 FiO2 30 01/01/25 21:10 Oxygen Flow Rate (L/min) 2 Oxygen Delivery Method Nasal Cannula Weight: 183 lb 3.266 oz Body Mass Index (BMI) 34.6 Intake & Output: Intake and Output for Last 24 Hours 01/06/25 01/07/25 01/08/25 23:59 23:59 23:59 Intake Total 1710 / 1710 3024 / 3264 784 / 784 Output Total 1850 / 1850 750 / 750 Balance -140 / -140 2274 / 2514 784 / 784 Lab / Micro Data 01/08/25 04:28 01/07/25 06:39 Labs: Laboratory Results - last 24 hr 01/07/25 06:39: WBC 3.2 L, RBC 3.23 L, Hgb 9.4 L, Hct 30.7 L, MCV 95.0, MCH 29.1, MCHC 30.6 L, RDW Std Deviation 63.6 H, RDW Coeff of Blas 18.4 H, Plt Count 29 L*, MPV 9.2, Diff Path Review February, Sodium 151 H, Potassium 3.7, Chloride 97 L, Carbon Dioxide 47.2 H*, Anion Gap TNP, BUN 31 H, Creatinine 0.77, Estim Creat Clear Calc 74.00, Est GFR (MDRD) Non-Af 87, BUN/Creatinine Ratio 39.7 H, G lucose 139 H, Calcium 7.6, Total Bilirubin 5.42 H, AST 49 H, ALT 25, Alkaline Phosphatase 143 H, Total Protein 6.6, Albumin 2.4 L, Globulin 4.1, A lbumin/Globulin Ratio 0.6 L 01/08/25 04:28: WBC 2.8 L, RBC 2.88 L, Hgb 8.4 L, Hct 27.6 L, MCV 95.8, MCH 29.2, MCHC 30.4 L, RDW Std Deviation 63.1 H, RDW Coeff of Blas 18.3 H, Plt Count 26 L*, MPV 10.6, Immature Gran % (Auto) 0.700, Neut % (Auto) 79.1 H, Lymph % (Auto) 7.4 L, [place] % (Auto) 11.7 H, Eos % (Auto) 1.1, Baso % (Auto) 0.0, Absolute Neuts (auto) 2.2, Absolute Lymphs (auto) 0.21 L, Nucleated RBC % 0, Differential Comment SCANNED, Diff Path Review May foll, Platelet Estimate MKD DEC, Anisocytosis 1+, Target Cells RARE, Ovalocytes 1+, Schistocytes RARE Micro: Microbiology 12/30/24 15:07 Blood Culture (Wb) - Anticubital Left Blood Culture - Final No growth in 5 days. 12/30/24 15:35 Blood Culture (Wb) - Anticubital Right Blood Culture - Final No growth in 5 days. 12/30/24 14:25 Sputum, Expectorated/Coughed Gram Stain - Final 12/30/24 14:25 Sputum, Expectorated/Coughed Respiratory Culture - Final Enterobacter spp. 12/31/24 12:10 Urine, Clean Catch Legionella Antigen - Final 12/31/24 12:10 Urine, Clean Catch Streptococcus pneumoniae Antigen (M - Final 12/31/24 11:25 Mucosa - Nasopharyngeal SARS-CoV-2, Influenza & RSV (PCR) - Final Influenzae A Assessment & Plan Assessment/Plan (1) Ileus due to infection: PLAN: I am following this patient in conjunction with Dr. Celis. Patient seems to be improving from a digestive standpoint Increase diet to full liquids with protein supplementation. Currently has Ensure clear. May increase to ensure high protein per dietary and speech recommendations. Would like to see diet slowly increase. Will keep at full liquids today and likely increase to regular diet tomorrow. Encourage ambulation and I.S. Patient on swallowing precautions per speech therapy We will contiune to leonid this patient Charges/Coding Visit Charges Inpatient E&M: 77339 Subs Hosp L1
[2025-01-08 08:12] LABS: ALB/GLOB Ratio 0.6 RATIO (0.9-2.4); AST(SGOT) 55 U/L (<=31); Alanine Aminotransfer ALT/SGPT 26 U/L (<=34); Albumin, Serum 2.1 g/dL (3.4-4.8); Alkaline Phosphatase 129 U/L (35-104); Anion Gap 6 (5-15); BUN 23 mg/dL (4-19); BUN/Creat Ratio 38.2 RATIO (10-20); Calcium,Total 7.4 mg/dL (7.6-11.0); Carbon Dioxide 45.8 mmol/L (21.0-32.0); Chloride 95 mmol/L (98-108); EST Glomerular Filtration Rate 101 (>60); Estimated Creatinine Clearance 95.03 ml/min (50-250); Globulin 3.6 g/dL (2.2-4.2); Glucose 111 mg/dL (70-99); Potassium 3.2 mmol/L (3.3-5.1); Protein, Total 5.8 g/dL (5.9-8.4); Sodium Level 147 mmol/L (133-145); Total Bilirubin 5.29 mg/dL (0.00-1.30)
--- NOTE | 2025-01-08 09:28 | PN.HOSP_ITS ---
Subjective Subjective No issues overnight she was tolerating clear liquids yesterday and she continues to have flatus and had some bowel movements earlier Objective Data Objective Data Vital Signs: Vital Signs Temp Pulse Resp BP Pulse Ox O2 Del Method O2 Flow Rate 97.9 F 82 18 108/60 96 Nasal Cannula 2 01/08/25 04:45 01/08/25 04:45 01/08/25 04:45 01/08/25 04:45 01/08/25 07:45 01/08/25 07:45 01/08/25 07:45 FiO2 30 01/01/25 21:10 Oxygen Flow Rate (L/min) 2 Oxygen Delivery Method Nasal Cannula Weight: 183 lb 3.266 oz Body Mass Index (BMI) 34.6 Intake & Output: Intake and Output for Last 24 Hours 01/07/25 01/08/25 01/09/25 03:59 03:59 03:59 Intake Total 1690 / 1690 3174 / 3174 544 / 544 Output Total 1850 / 1850 750 / 750 Balance -160 / -160 2424 / 2424 544 / 544 Lab / Micro Data 01/08/25 04:28 01/08/25 04:28 Labs: Laboratory Results - last 24 hr 01/08/25 04:28: WBC 2.8 L, RBC 2.88 L, Hgb 8.4 L, Hct 27.6 L, MCV 95.8, MCH 29.2, MCHC 30.4 L, RDW Std Deviation 63.1 H, RDW Coeff of Blas 18.3 H, Plt Count 26 L*, MPV 10.6, Immature Gran % (Auto) 0.700, Neut % (Auto) 79.1 H, Lymph % (Auto) 7.4 L, [place] % (Auto) 11.7 H, Eos % (Auto) 1.1, Baso % (Auto) 0.0, Absolute Neuts (auto) 2.2, Absolute Lymphs (auto) 0.21 L, Nucleated RBC % 0, Differential Comment SCANNED, Diff Path Review May foll, Platelet Estimate MKD DEC, Anisocytosis 1+, Target Cells RARE, Ovalocytes 1+, Schistocytes RARE, S odium 147 H, Potassium 3.2 L, Chloride 95 L, Carbon Dioxide 45.8 H*, Anion Gap 6, BUN 23 H, Creatinine 0.60 L, Estim Creat Clear Calc 95.03, Est GFR (MDRD) Non-Af 101, BUN/Creatinine Ratio 38.2 H, Glucose 111 H, Calcium 7.4 L, Total Bilirubin 5.29 H, AST 55 H, ALT 26, Alkaline Phosphatase 129 H, Total Protein 5.8 L, Albumin 2.1 L, Globulin 3.6, Albumin/Globulin Ratio 0.6 L Micro: Microbiology 12/30/24 15:07 Blood Culture (Wb) - Anticubital Left Blood Culture - Final No growth in 5 days. 12/30/24 15:35 Blood Culture (Wb) - Anticubital Right Blood Culture - Final No growth in 5 days. 12/30/24 14:25 Sputum, Expectorated/Coughed Gram Stain - Final 12/30/24 14:25 Sputum, Expectorated/Coughed Respiratory Culture - Final Enterobacter spp. 12/31/24 12:10 Urine, Clean Catch Legionella Antigen - Final 12/31/24 12:10 Urine, Clean Catch Streptococcus pneumoniae Antigen (M - Final 12/31/24 11:25 Mucosa - Nasopharyngeal SARS-CoV-2, Influenza & RSV (PCR) - Final Influenzae A Physical Exam Narrative General: Alert, Oriented x2, Cooperative, No apparent distress HEENT: Atraumatic, PERRLA, EOMI, Normocephalic, NG tube in place Oral: Moist Mucosa Neck: Supple, No JVD Lungs: Diminished, Normal air movement, No rhonchi, No wheeze, No rales Cardiovascular: Regular rate, Regular Rhythm, Normal S1, Normal S2, No murmurs Abdomen: Soft, Non Tender, Non-Distended, No Hepato-splenomegaly Extremities: No edema, Capillary Refill Less than 3 Seconds Skin: No rashes, No breakdown Musculoskeletal: No Tenderness to Palpation of Joints or Extremities Neurological: No focal neurological deficits, Motor Exam 5/5 strength throughout, Sensory exam intact to light touch and pain Psych/Mental Status: Normal Affect, Appropriate Assessment & Plan Assessment/Plan (1) Acute on chronic respiratory failure with hypoxia and hypercapnia: PLAN: Plan 1. Acute on chronic hypoxic and hypercapnic respiratory failure secondary to influenza A infection and superimposed bacterial pneumonia ? Front Desk Agent followed. Positive for influenza A on 12/25 at PCP office. Is on home 2 L nasal cannula. Required BiPAP on admit to maintain appropriate oxygen saturations. Chest x-ray showed acute bilateral infiltrates superimposed on chronic changes. Sputum culture grew 2+ Enterobacter. Treated with IV steroids, scheduled DuoNebs and IV antibiotics with good improvement. Continue p.o. prednisone, DuoNebs as needed and p.o. Levaquin for now. Plan to complete 7-day course of antibiotics total. Weaned down to 2 L nasal cannula by 01/06, continue to wean as able. 01/07/2025: She has not received any of her antibiotics for the last 3 days as they were continued as p.o. and it does not appear that it was ever changed to IV and nursing was just charting not given, she did receive 5 days of vancomycin and Zosyn as she received 1 day of p.o. Levaquin on 01/04/2025 2. Partial small bowel obstruction/ileus ? General Surgery following. Patient developed nausea with vomiting and abdominal distention during hospitalization with concern for small bowel obstruction. NG tube was placed with significant lightish brown output. KUB on 01/06 showed prominent bowel loops secondary to either ileus versus developing bowel obstruction. Per surgery, appears more consistent with ileus. Will continue NG tube with decompression of the bowel until tomorrow and then reassess for small bowel follow-through versus clamping trial of NG tube. Continue n.p.o. status. Continue mobilization as able. 01/07/2025: Awaiting general surgery's evaluation plan for possible NG tube clamping or removal 01/08/2025: NG tube has been removed and she is tolerating clear liquid diet. General surgery to advance diet as indicated 3. Hypokalemia and hypomagnesemia ? Presume secondary to poor p.o. intake. Repleting as needed. 01/07/2025: Hypernatremia, will start D5W and recheck in the morning, this is likely related to probable dehydration given her n.p.o. status with her small bowel obstruction. 01/08/2025: Sodium levels are improving we will continue to monitor. 4. Pancytopenia ? Suspected multifactorial from acute infection and cirrhosis. Hemoglobin stable at baseline 08-08. WBC count stable around 3. Platelet count was slow downtrend since admission, baseline was around 60-70 and has now downtrended to 34. Continue to monitor CBC daily. SCDs for DVT prophylaxis. 01/07/2025: Platelets are down to 29, will continue to monitor it is felt that her pancytopenia is reactive to her acute infection as well as her history of cirrhosis. Would recommend outpatient monitoring with hematology 01/08/2025: Platelets are down to 26 will continue to monitor at this moment there is nothing to do as she is chronically thrombocytopenic from cirrhosis so in light of her influenza A and bacterial pneumonia as treatment progresses this would likely improve 5. Suspected protein calorie malnutrition ? Nutrition consulted. Low albumin noted and suspected malnutrition in setting of poor p.o. intake recently. Appreciate nutrition recommendations. 6. Nonalcoholic fatty liver disease with complications including cirrhosis with ascites and esophageal varices s/p TIPS procedure ? Follows with Dr. Estrada. Has history of frequent paracenteses here. Last paracentesis was done in August with 7550 ml of fluid removed. No significant ascites noted on this admit, no need for paracentesis. Continue home torsemide, Aldactone and lactulose. 7. Acute on chronic debility ? PT/OT/case management following. Likely planning for home with home health care on discharge. 8. Class I obesity ? BMI 31 on admit. Complicates hospital course, care and prognosis. DVT: SCDs Charges/Coding Visit Charges Inpatient E&M: 34186 Subs Hosp L2
[2025-01-08 10:30] VITALS: BP 100/64; PULSE 87; RESP 16; TEMP 36.4; O2SAT 94
[2025-01-08] MEDS: predniSONE 20 MG Tablet 40 MG PO (10:33)
[2025-01-08] MEDS: Senna Tablet 2 TABLET PO ×2 (10:34→21:06)
[2025-01-08] MEDS: Potassium Chloride Oral Tablet 20 MEQ PO (10:34)
[2025-01-08] MEDS: Magnesium Chloride 64 MG Delay Rel.Tablet 128 MG PO ×2 (10:34→21:06)
[2025-01-08] MEDS: levoFLOXacin 500 MG Tablet PO (10:34)
[2025-01-08] MEDS: 0.9% Saline Lock 10 ML Syringe IV (10:40)
[2025-01-08] MEDS: Potassium Chloride Oral Tablet 20 MEQ 40 MEQ PO (10:40)
[2025-01-08] MEDS: Pantoprazole Sodium 40 MG in 0.9% Normal Saline (100mL MB+) 100 ML 330 MG IV ×2 (10:43→21:07)
[2025-01-08] MEDS: Acetaminophen 650 MG/20 ML UDC PO (15:58)
[2025-01-08] MEDS: SimETHICONE 80 MG Chewable Tablet PO (15:58)
[2025-01-08 16:30] VITALS: BP 115/64; PULSE 84; RESP 20; TEMP 35.8; O2SAT 94
[2025-01-08 21:01] VITALS: BP 109/63; PULSE 79; RESP 18; TEMP 36.3; O2SAT 95
[2025-01-09] VITALS (7 sets, daily range): BP systolic 103–122; BP diastolic 52–75; PULSE 77–93; RESP 16–20; TEMP 35.7–37.1; O2SAT 94–100; BMI 34.9
--- NOTE | 2025-01-09 05:20 | RAD_ITS ---
PROCEDURE: ABD DECUB AND/OR ERECT(PORTABL REASON FOR EXAM: ABDOMINAL BLOATING TECHNIQUE: Single view abdomen. COMPARISON: Abdomen x-ray dated 01/07/2025. FINDINGS: Airspace opacity again seen within the right lung. TIPS stent present within the liver. Moderate amount of gas seen within the colonic loops. Probable rectal tube is identified. No gross evidence of bowel obstruction. RAD/Abd Decub and/or Erect(Portabl IMPRESSION: No gross evidence of bowel obstruction. Reading Location: [id number]
[2025-01-09] MEDS: Lactulose 20 GM/30 ML UDC PO ×3 (05:46→20:02)
[2025-01-09] MEDS: Midodrine HCl 5 MG Tablet 20 MG PO ×4 (05:46→23:47)
[2025-01-09 07:37] LABS: Absolute Lymphocyte Count 0.43 X10^3/uL (0.83-4.51); Absolute Neutrophil Count 2.8 X10^3/uL (2.0-7.7); Eosinophil# 0.01 X10^3/uL; Eosinophils% 0.3 % (0-5); Hematocrit 30.9 % (37-47); Hemoglobin 9.3 g/dL (12.0-15.0); Lymphocyte # 0.43 X10^3/ul (0.83-4.51); Lymphocyte % 11.4 % (19-41); Mean Corp Hgb Conc 30.1 g/dL (32-36); Mean Corpuscular Hgb 28.8 pg (27.0-32.0); Mean Corpuscular Volume 95.7 fL (81-99); Monocyte# 0.48 X10^3/uL; Monocyte% 12.7 % (0-10); NRBC Flagged by Analyzer 0 % (0-5); Neutrophil # 2.84 X10^3/uL (2.7-7.7); Neutrophil % 75.1 % (47-70); POSITIVE COUNT YES; POSITIVE DIFFERENTIAL YES; RBC Distribution Width CV 17.6 % (11.6-14.6); Red Blood Count 3.23 M/mm3 (4.2-5.4); White Blood Count 3.8 K/mm3 (4.4-11.0)
[2025-01-09 07:43] LABS: Differential Indicated SCAN CRITERIA MET
[2025-01-09 07:44] LABS: Platelet Count 30 K/mm3 (150-450)
[2025-01-09 08:11] LABS: Pathologist Review May foll
--- NOTE | 2025-01-09 08:48 | PCM.PN.HOSP ---
Subjective Subjective She was having difficulty swallowing yesterday, awaiting speech therapy evaluation today Objective Data Objective Data Vital Signs: Vital Signs Temp Pulse Resp BP Pulse Ox O2 Del Method O2 Flow Rate 96.2 F L 92 16 114/75 94 Nasal Cannula 2 01/09/25 03:15 01/09/25 03:15 01/09/25 03:15 01/09/25 03:15 01/09/25 03:15 01/09/25 03:15 01/09/25 03:15 FiO2 30 01/01/25 21:10 Oxygen Flow Rate (L/min) 2 Oxygen Delivery Method Nasal Cannula Weight: 183 lb 3.266 oz Body Mass Index (BMI) 34.6 Intake & Output: Intake and Output for Last 24 Hours 01/08/25 01/09/25 01/10/25 03:59 03:59 03:59 Intake Total 3174 / 3174 1727 / 1727 Output Total 750 / 750 150 / 150 Balance 2424 / 2424 1577 / 1577 Lab / Micro Data 01/09/25 06:53 01/08/25 04:28 Labs: Laboratory Results - last 24 hr 01/09/25 06:53: WBC 3.8 L, RBC 3.23 L, Hgb 9.3 L, Hct 30.9 L, MCV 95.7, MCH 28.8, MCHC 30.1 L, RDW Std Deviation 61.0 H, RDW Coeff of Blas 17.6 H, Plt Count 30 L*, MPV 11.0, Immature Gran % (Auto) 0.500, Neut % (Auto) 75.1 H, Lymph % (Auto) 11.4 L, [place] % (Auto) 12.7 H, Eos % (Auto) 0.3, Baso % (Auto) 0.0, Absolute Neuts (auto) 2.8, Absolute Lymphs (auto) 0.43 L, Nucleated RBC % 0, Differential Comment , Diff Path Review May Micro: Microbiology 12/30/24 15:07 Blood Culture (Wb) - Anticubital Left Blood Culture - Final No growth in 5 days. 12/30/24 15:35 Blood Culture (Wb) - Anticubital Right Blood Culture - Final No growth in 5 days. 12/30/24 14:25 Sputum, Expectorated/Coughed Gram Stain - Final 12/30/24 14:25 Sputum, Expectorated/Coughed Respiratory Culture - Final Enterobacter spp. 12/31/24 12:10 Urine, Clean Catch Legionella Antigen - Final 12/31/24 12:10 Urine, Clean Catch Streptococcus pneumoniae Antigen (M - Final 12/31/24 11:25 Mucosa - Nasopharyngeal SARS-CoV-2, Influenza & RSV (PCR) - Final Influenzae A Radiography Diagnostic Testing: Radiology Impression Abdomen X-Ray 01/09/25 05:20 IMPRESSION: No gross evidence of bowel obstruction. Reading Location: [id number] Physical Exam Narrative General: Alert, Oriented x2, Cooperative, No apparent distress HEENT: Atraumatic, PERRLA, EOMI, Normocephalic, NG tube in place Oral: Moist Mucosa Neck: Supple, No JVD Lungs: Diminished, Normal air movement, No rhonchi, No wheeze, No rales Cardiovascular: Regular rate, Regular Rhythm, Normal S1, Normal S2, No murmurs Abdomen: Soft, Non Tender, Non-Distended, No Hepato-splenomegaly Extremities: No edema, Capillary Refill Less than 3 Seconds Skin: No rashes, No breakdown Musculoskeletal: No Tenderness to Palpation of Joints or Extremities Neurological: No focal neurological deficits, Motor Exam 5/5 strength throughout, Sensory exam intact to light touch and pain Psych/Mental Status: Normal Affect, Appropriate Assessment & Plan Assessment/Plan (1) Acute on chronic respiratory failure with hypoxia and hypercapnia: PLAN: Plan 1. Acute on chronic hypoxic and hypercapnic respiratory failure secondary to influenza A infection and superimposed bacterial pneumonia ? 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 Positive for influenza A on 12/25 at PCP office. Is on home 2 L nasal cannula. Required BiPAP on admit to maintain appropriate oxygen saturations. Chest x-ray showed acute bilateral infiltrates superimposed on chronic changes. Sputum culture grew 2+ Enterobacter. Treated with IV steroids, scheduled DuoNebs and IV antibiotics with good improvement. Continue p.o. prednisone, DuoNebs as needed and p.o. Levaquin for now. Plan to complete 7-day course of antibiotics total. Weaned down to 2 L nasal cannula by 01/06, continue to wean as able. 01/07/2025: She has not received any of her antibiotics for the last 3 days as they were continued as p.o. and it does not appear that it was ever changed to IV and nursing was just charting not given, she did receive 5 days of vancomycin and Zosyn as she received 1 day of p.o. Levaquin on 01/04/2025 2. Partial small bowel obstruction/ileus ? General Surgery following. Patient developed nausea with vomiting and abdominal distention during hospitalization with concern for small bowel obstruction. NG tube was placed with significant lightish brown output. KUB on 01/06 showed prominent bowel loops secondary to either ileus versus developing bowel obstruction. Per surgery, appears more consistent with ileus. Will continue NG tube with decompression of the bowel until tomorrow and then reassess for small bowel follow-through versus clamping trial of NG tube. Continue n.p.o. status. Continue mobilization as able. 01/07/2025: Awaiting general surgery's evaluation plan for possible NG tube clamping or removal 01/08/2025: NG tube has been removed and she is tolerating clear liquid diet. General surgery to advance diet as indicated 01/09/2025: She was having episodes of dysphagia yesterday, awaiting speech evaluation unclear as to the etiology 3. Hypokalemia and hypomagnesemia/hypernatremia ? Presume secondary to poor p.o. intake. Repleting as needed. 01/07/2025: Hypernatremia, will start D5W and recheck in the morning, this is likely related to probable dehydration given her n.p.o. status with her small bowel obstruction. 01/08/2025: Sodium levels are improving we will continue to monitor. 01/09/2025: Can likely discontinue fluids though still pending BMP from this morning 4. Pancytopenia ? Suspected multifactorial from acute infection and cirrhosis. Hemoglobin stable at baseline -11. WBC count stable around 3. Platelet count was slow downtrend since admission, baseline was around 60-70 and has now downtrended to 34. Continue to monitor CBC daily. SCDs for DVT prophylaxis. 01/07/2025: Platelets are down to 29, will continue to monitor it is felt that her pancytopenia is reactive to her acute infection as well as her history of cirrhosis. Would recommend outpatient monitoring with hematology 01/08/2025: Platelets are down to 26 will continue to monitor at this moment there is nothing to do as she is chronically thrombocytopenic from cirrhosis so in light of her influenza A and bacterial pneumonia as treatment progresses this would likely improve 01/09/2025: Platelet count has improved slightly we will continue to monitor 5. Suspected protein calorie malnutrition ? Nutrition consulted. Low albumin noted and suspected malnutrition in setting of poor p.o. intake recently. Appreciate nutrition recommendations. 6. Nonalcoholic fatty liver disease with complications including cirrhosis with ascites and esophageal varices s/p TIPS procedure ? Follows with Dr. Estrada. Has history of frequent paracenteses here. Last paracentesis was done in August with 7550 ml of fluid removed. No significant ascites noted on this admit, no need for paracentesis. Continue home torsemide, Aldactone and lactulose. 7. Acute on chronic debility ? PT/OT/case management following. Likely planning for home with home health care on discharge. 8. Class I obesity ? BMI 31 on admit. Complicates hospital course, care and prognosis. DVT: SCDs Charges/Coding Visit Charges Inpatient E&M: 51944 Subs Hosp L2
--- NOTE | 2025-01-09 09:17 | SP.MBSS_ITS ---
Modified Barium Swallow Patient Information Study Date: 01/09/25 Study Time: 10:30 Direct Billable Minutes: 61 Total Minutes procedure & reportin Diagnosis: Bilateral PNA J84.9 Referring Physician: Abdiel Grimaldo Reason for Referral: Assess swallow function, assess risk for aspiration, and determine recommendations for least restrictive diet textures and compensatory strategies to improve safety of swallow. Medical History: Pt presented to [facility] ED on 12/30/2024 with worsening SOB. PMH below. 2L nasal cannula at home baseline. Pt developed URI week before admission and tested positive for influenza A at her PCP office on 12/25. She has had worsening SOB the few days before admission. In the ED, chest x-ray showed acute bilateral infiltrates superimposed on chronic changes with significant right-sided infiltrates especially noted. Given these findings, she was placed on BiPAP in the ED and hospitalist was contacted for admission. During stay, patient also was found to have small bowel obstruction, which she has been treated for. BSE 01/03/2025 recommended puree textures / thin liquids; however, current diet is clear liquid diet s/p treatment for small bowel obstruction. Pt has had increased coughing w/ liquids and is recommended for MBSS today. Per discussion w/ Dr. Grimaldo, the patient is cleared for puree and solid po trials. She is also ok for use of barium as opposed to gastrografin as the small bowel obstruction is resolved. Of note, the patient is primarily Ukrainian speaking, but her daughter has stayed w/ her during the hospitalization and is able to translate for her. Pt and daughter are agreeble to MBSS. PMH: Uses wheelchair, Non-smoker, Tuberculosis, Wears glasses, Walker as am bulation aid, Jaundice, Difficulty swallowing, Nausea, S/P abdominal paracentesis, Loss of consciousness, Chronic cough, On home oxygen therapy, SOB on exertion, Chronic anemia, Abdominal ascites, Emphysema lung, Hypoxia, Lung bullae, Lactic acidosis, Appendicitis, Cholecystitis, Bronchitis. Current Diet Ordered: Clear liquids Dentition: Natural Teeth and Missing Teeth (few teeth) Mental Status: WNL Respiratory Status: Oxygenating on 2L/M nasal cannula Penetration-Aspiration Scale Penetration-Aspiration Scale: OBJECTIVE ASSESSMENT OF SWALLOW FUNCTION (QUANTITATIVE ? PER TRIAL): PENETRATION / ASPIRATION SCALE (HOOKS): 1 = does not enter airway 2 = enters airway/above vocal folds/ejected 3 = enters airway/above vocal folds/not ejected 4 = enters airway/contacts vocal folds/ejected 5 = enters airway/contacts vocal folds/not ejected 6 = enters airway/below vocal folds/ejected 7 = enters airway/below vocal folds/not ejected despite effort 8 = enters airway/below vocal folds/no effort VIDEOFLOROSCOPIC SCALE SCORE (HOOKS): Grade I = aspiration of material that has penetrated into the laryngeal vestibule, intact cough reflex Grade II = aspiration < 10 % of the bolus, intact cough reflex Grade III = aspiration of < 10 % of the bolus, reduced cough reflex or aspiration of > 10 % of the bolus, intact cough reflex Grade IV = aspiration of > 10 % of the bolus, reduced cough reflex Penetration-Aspiration Scale Score Thin Liquid via teaspoon: Result: 1= does not enter airway Thin Liquid via teaspoon Trial 2: Result: 1= does not enter airway Thin Liquid via teaspoon Trial 3: Result: 1= does not enter airway Thin Liquid via small single sip: cup: Result: 1= does not enter airway [place] Thick Liquid via small single sip: cup: Result: 1= does not enter airway Pudding via teaspoon: Result: 1= does not enter airway Comment: Esophageal screen - Complete clearance. Oral Phase Labial Seal: Escape beyond mid-chin Tongue Control During Bolus Hold: Posterior escape of greater than half of bolus Bolus Transport/Lingual Motion: Repetitive/disorganized tongue motion Oral Residue: Majority of bolus remaining (piecemeal deglutition of pudding, majority remaining after 1st swallow) Pharyngeal Phase Initiation of Pharyngeal Swallow: Bolus head in valleculae Soft Palate Elevation: Trace column of contrast/air between soft palate and pharyngeal wall Laryngeal Elevation: Comp. Superior move thyroid cart w/comp. apprx arytenoid cart-epig pet Anterior Hyoid Excursion: Partial anterior movement Epiglottic Movement: Complete inversion Pharyngeal Stripping Wave: Present - complete Pharyngoesophageal Segment Opening: Complete distension and complete duration; no obstruction of flow Tongue Base Retraction: Narrow column of contrast between tongue base & post. pharyngeal wall Pharyngeal Residue: Trace residue within or on pharyngeal structures Esophageal Phase Esophageal Clearance: Complete clearance Diagnosis/Impression Diagnosis: Moderate oral dysphagia R13.11 Impression: The oral phase is marked by... -Loss of >1/2 of various boluses to the vallecula prior to swallow onset. -Lingual pumping for A-P transport. -Moderate oral residue of pudding, which mostly cleared w/ a second swallow. -Could not assess mastication as the patient declined cookie trial. The pharyngeal phase appeared grossly WNL. Swallow onset w/ bolus in the vallecula. Despite two coughs immediately following sips of liquids during the MBSS, no aspiration or laryngeal penetration was observed during the study. Trace pharyngeal residues due to good pharyngeal motility. Recommendations Diet: Puree Textures and Thin Liquids Compensatory Strategies: Small Bites, Small Sips, Slow Rate, Sitting upright and Remain sitting upright for 30 minutes after PO intake Supervision: 1:1 Direct Supervision (Assist Feeding - Family is ok to assist feeding and provide supervision) Recommend Repeat Modified Barium Swallow: No Need for Skilled Speech Therapy Services: Yes Comment: Follow for ongoing assessment of diet tolerance and training in strategies to decrease risk for aspiration. AUTOMOTIVE ACCESSORY INSTALLER to trial soft solids in upcoming sessions to consider further diet advancement. Education Completed: 1. Described result of evaluation., 2. Pt understands evaluation & agrees with goals and treatment plan., 4. Family/caregivers understand evaluation & agree w/ goals & tx plan. and 7. Pt requires further education on strategies & risks. Status Active ST Patient: Active Contact Information [facility]:: Sanjuana Byrd M.A. CCC-AUTOMOTIVE ACCESSORY INSTALLER? Speech-Language Pathologist?? [facility] [address] [place] [address]? [email or web address]?? [phone]
[2025-01-09 09:20] LABS: Anion Gap 2 (5-15); BUN 13 mg/dL (4-19); BUN/Creat Ratio 26.2 RATIO (10-20); Calcium,Total 7.6 mg/dL (7.6-11.0); Carbon Dioxide 45.8 mmol/L (21.0-32.0); Chloride 94 mmol/L (98-108); EST Glomerular Filtration Rate 106 (>60); Estimated Creatinine Clearance 114.04 ml/min (50-250); Glucose 143 mg/dL (70-99); Potassium 3.8 mmol/L (3.3-5.1); Sodium Level 141 mmol/L (133-145)
[2025-01-09] MEDS: Potassium Chloride Oral Tablet 20 MEQ PO ×2 (09:54→18:32)
[2025-01-09] MEDS: levoFLOXacin 500 MG Tablet PO (09:55)
[2025-01-09] MEDS: predniSONE 20 MG Tablet 40 MG PO (09:55)
[2025-01-09] MEDS: Magnesium Chloride 64 MG Delay Rel.Tablet 128 MG PO ×2 (09:56→20:02)
[2025-01-09] MEDS: Senna Tablet 2 TABLET PO ×2 (09:57→20:02)
--- NOTE | 2025-01-09 13:11 | PCM.PN.SRG ---
Subjective Subjective According to the patient's daughter, patient is having more distention today. She has been tolerating diet. However she has not passed any flatus today. X-rays performed earlier today show moderate colonic gas. There is no appreciable small bowel distention. This seems to be most consistent with ileus Objective Data Objective Data Vital Signs: Vital Signs Temp Pulse Resp BP Pulse Ox O2 Del Method O2 Flow Rate 98.1 F 93 18 113/68 98 Nasal Cannula 2 01/09/25 13:10 01/09/25 13:10 01/09/25 13:10 01/09/25 13:10 01/09/25 13:10 01/09/25 13:10 01/09/25 13:10 FiO2 30 01/01/25 21:10 Oxygen Flow Rate (L/min) 2 Oxygen Delivery Method Nasal Cannula Weight: 185 lb Body Mass Index (BMI) 34.9 Intake & Output: Intake and Output for Last 24 Hours 01/07/25 01/08/25 01/09/25 23:59 23:59 23:59 Intake Total 3024 / 3264 1944 / 1966 696 / 696 Output Total 750 / 750 150 / 150 Balance 2274 / 2514 1946 / 1816 546 / 546 Lab / Micro Data 01/09/25 06:53 01/09/25 06:53 Labs: Laboratory Results - last 24 hr 01/09/25 06:53: WBC 3.8 L, RBC 3.23 L, Hgb 9.3 L, Hct 30.9 L, MCV 95.7, MCH 28.8, MCHC 30.1 L, RDW Std Deviation 61.0 H, RDW Coeff of Blas 17.6 H, Plt Count 30 L*, MPV 11.0, Immature Gran % (Auto) 0.500, Neut % (Auto) 75.1 H, Lymph % (Auto) 11.4 L, [place] % (Auto) 12.7 H, Eos % (Auto) 0.3, Baso % (Auto) 0.0, Absolute Neuts (auto) 2.8, Absolute Lymphs (auto) 0.43 L, Nucleated RBC % 0, Differential Comment , Diff Path Review February, Sodium 141, Potassium 3.8, Chloride 94 L, Carbon Dioxide 45.8 H*, Anion Gap 2 L, BUN 13, Creatinine 0.50 L, Estim Creat Clear Calc 114.04, Est GFR (MDRD) Non-Af 106, BUN/Creatinine Ratio 26.2 H, Glucose 143 H, Calcium 7.6 Micro: Microbiology 12/30/24 15:07 Blood Culture (Wb) - Anticubital Left Blood Culture - Final No growth in 5 days. 12/30/24 15:35 Blood Culture (Wb) - Anticubital Right Blood Culture - Final No growth in 5 days. 12/30/24 14:25 Sputum, Expectorated/Coughed Gram Stain - Final 12/30/24 14:25 Sputum, Expectorated/Coughed Respiratory Culture - Final Enterobacter spp. 12/31/24 12:10 Urine, Clean Catch Legionella Antigen - Final 12/31/24 12:10 Urine, Clean Catch Streptococcus pneumoniae Antigen (M - Final 12/31/24 11:25 Mucosa - Nasopharyngeal SARS-CoV-2, Influenza & RSV (PCR) - Final Influenzae A Radiography Diagnostic Testing: Radiology Impression Abdomen X-Ray 01/09/25 05:20 IMPRESSION: No gross evidence of bowel obstruction. Reading Location: [id number] Physical Exam Narrative She is awake and alert. No acute distress. Abdomen is soft and nontender. Very minimal distention compared to abdominal exam earlier this week Assessment & Plan Assessment/Plan (1) Ileus due to infection: PLAN: The patient is a 64-year-old female with persistent abdominal distention likely secondary to ileus. She has been tolerating diet advancement thus far however is having some increasing distention and bloating today. I do recommend that she be up and ambulate more frequently. I advised that is better for her to be sitting up in a chair rather than laying in bed as I feel that this will improve her ability to regain bowel function. Will continue a pur?e diet for now. Will also add fleets enema today as there appears to be some persistent stool in the left side of the colon
[2025-01-09] MEDS: Polyethylene Glycol 3350 17 GM PACKET PO (13:12)
[2025-01-09] MEDS: Torsemide 20 MG Tablet 40 MG PO ×2 (13:12→18:32)
[2025-01-09] MEDS: Pantoprazole Sodium 40 MG in 0.9% Normal Saline (100mL MB+) 100 ML 330 MG IV ×2 (13:13→20:03)
--- NOTE | 2025-01-09 15:45 | CASEMGMT ---
SHEBA PEÑA NOTE: Per Sanjuana, , OP ST recommended. SHEBA PEÑA to room. DtrTimoteo, @ bedside. Discussed recommendations for OP ST. She states they may be interested/able to pay for this private-pay, but she wants to talk w/her brother about this 1st. If they do, they would like to bring pt to [place] for OP ST. Made aware of locations in [place] that do OP ST. She was made aware a script for OP ST can be provided @ dc and they can take to location of choice. Call was placed to [facility] for pricing. If pt does the [facility], which is a pay as you go pricing, Eval would be $129 and each tx appt thereafter would be $88. DtTimoteo campbell, was provided w/this info. Dtr denies needing wanting/needing script for OP PT or OT. She denies having any DME needs and denies having other dc needs/concerns/questions. Green sheet placed on chart w/prepared script for OP ST. MD to sign. Script to be given to family @ dc. Karyna DIAZ RN CM
[2025-01-09] MEDS: Spironolactone 50 MG Tablet 100 MG PO (20:02)
[2025-01-10] VITALS (7 sets, daily range): BP systolic 92–118; BP diastolic 52–66; PULSE 73–90; RESP 14–18; TEMP 36.3–36.9; O2SAT 95–100; BMI 34.6
[2025-01-10] MEDS: Midodrine HCl 5 MG Tablet 20 MG PO ×4 (05:54→23:51)
[2025-01-10] MEDS: Lactulose 20 GM/30 ML UDC PO ×3 (05:54→21:52)
[2025-01-10 06:10] LABS: Absolute Lymphocyte Count 0.66 X10^3/uL (0.83-4.51); Basophil# 0.01 X10^3/uL; Basophil% 0.2 % (0-1); Eosinophil# 0.06 X10^3/uL; Eosinophils% 1.3 % (0-5); Hematocrit 32.1 % (37-47); Lymphocyte # 0.66 X10^3/ul (0.83-4.51); Lymphocyte % 14.6 % (19-41); Mean Corp Hgb Conc 31.2 g/dL (32-36); Mean Corpuscular Hgb 29.2 pg (27.0-32.0); Mean Corpuscular Volume 93.6 fL (81-99); Mean Platelet Vol. 10.1 fl (6.2-12.0); Monocyte# 0.77 X10^3/uL; Monocyte% 17.1 % (0-10); NRBC Flagged by Analyzer 0 % (0-5); Neutrophil # 2.98 X10^3/uL (2.7-7.7); Neutrophil % 66.1 % (47-70); POSITIVE COUNT YES; RBC Distribution Width CV 17.7 % (11.6-14.6); RBC Distribution Width SD 59.8 fl (35.1-43.9); Red Blood Count 3.43 M/mm3 (4.2-5.4); White Blood Count 4.5 K/mm3 (4.4-11.0)
[2025-01-10 06:12] LABS: Differential Indicated SCAN CRITERIA MET
[2025-01-10 06:13] LABS: Platelet Count 29 K/mm3 (150-450)
[2025-01-10 07:17] LABS: Anion Gap 4 (5-15); BUN 14 mg/dL (4-19); BUN/Creat Ratio 22.1 RATIO (10-20); Calcium,Total 7.7 mg/dL (7.6-11.0); Carbon Dioxide 43.7 mmol/L (21.0-32.0); Chloride 90 mmol/L (98-108); Creatinine, Serum 0.62 mg/dL (0.70-1.20); EST Glomerular Filtration Rate 100 (>60); Estimated Creatinine Clearance 91.96 ml/min (50-250); Glucose 109 mg/dL (70-99); Potassium 4.1 mmol/L (3.3-5.1); Sodium Level 137 mmol/L (133-145)
--- NOTE | 2025-01-10 08:53 | PN.HOSP_ITS ---
Subjective Subjective Denies any abdominal pain or nausea but has not passed any gas Objective Data Objective Data Vital Signs: Vital Signs Temp Pulse Resp BP Pulse Ox O2 Del Method O2 Flow Rate 98.5 F 73 16 109/56 L 95 Nasal Cannula 2 01/10/25 02:40 01/10/25 02:40 01/10/25 02:40 01/10/25 02:40 01/10/25 07:46 01/10/25 07:46 01/10/25 07:46 FiO2 30 01/01/25 21:10 Oxygen Flow Rate (L/min) 2 Oxygen Delivery Method Nasal Cannula Weight: 183 lb 3.266 oz Body Mass Index (BMI) 34.6 Intake & Output: Intake and Output for Last 24 Hours 01/09/25 01/10/25 01/11/25 03:59 03:59 03:59 Intake Total 1727 / 1727 1546 / 1546 Output Total 150 / 150 1100 / 1100 1250 / 1250 Balance 1577 / 1577 446 / 446 -1220 / -1220 Lab / Micro Data 01/10/25 05:58 01/10/25 05:58 Labs: Laboratory Results - last 24 hr 01/09/25 06:53: Sodium 141, Potassium 3.8, Chloride 94 L, Carbon Dioxide 45.8 H* , Anion Gap 2 L, BUN 13, Creatinine 0.50 L, Estim Creat Clear Calc 114.04, Est GFR (MDRD) Non-Af 106, BUN/Creatinine Ratio 26.2 H, Glucose 143 H, Calcium 7.6 01/10/25 05:58: WBC 4.5, RBC 3.43 L, Hgb 10.0 L, Hct 32.1 L, MCV 93.6, MCH 29.2, MCHC 31.2 L, RDW Std Deviation 59.8 H, RDW Coeff of Blas 17.7 H, Plt Count 29 L*, MPV 10.1, Immature Gran % (Auto) 0.700, Neut % (Auto) 66.1, Lymph % (Auto) 14.6 L, [place] % (Auto) 17.1 H, Eos % (Auto) 1.3, Baso % (Auto) 0.2, Absolute Neuts (auto) 3.0, Absolute Lymphs (auto) 0.66 L, Nucleated RBC % 0, Sodium 137, Potassium 4.1, Chloride 90 L, Carbon Dioxide 43.7 H, Anion Gap 4 L, BUN 14, C reatinine 0.62 L, Estim Creat Clear Calc 91.96, Est GFR (MDRD) Non-Af 100, B UN/Creatinine Ratio 22.1 H, Glucose 109 H, Calcium 7.7 Micro: Microbiology 12/30/24 15:07 Blood Culture (Wb) - Anticubital Left Blood Culture - Final No growth in 5 days. 12/30/24 15:35 Blood Culture (Wb) - Anticubital Right Blood Culture - Final No growth in 5 days. 12/30/24 14:25 Sputum, Expectorated/Coughed Gram Stain - Final 12/30/24 14:25 Sputum, Expectorated/Coughed Respiratory Culture - Final Enterobacter spp. 12/31/24 12:10 Urine, Clean Catch Legionella Antigen - Final 12/31/24 12:10 Urine, Clean Catch Streptococcus pneumoniae Antigen (M - Final 12/31/24 11:25 Mucosa - Nasopharyngeal SARS-CoV-2, Influenza & RSV (PCR) - Final Influenzae A Physical Exam Narrative General: Alert, Oriented x3, Cooperative, No apparent distress HEENT: Atraumatic, PERRLA, EOMI, Normocephalic, NG tube in place Oral: Moist Mucosa Neck: Supple, No JVD Lungs: Diminished, Normal air movement, No rhonchi, No wheeze, No rales Cardiovascular: Regular rate, Regular Rhythm, Normal S1, Normal S2, No murmurs Abdomen: Soft, Non Tender, Non-Distended, No Hepato-splenomegaly Extremities: No edema, Capillary Refill Less than 3 Seconds Skin: No rashes, No breakdown Musculoskeletal: No Tenderness to Palpation of Joints or Extremities Neurological: No focal neurological deficits, Motor Exam 5/5 strength throughout, Sensory exam intact to light touch and pain Psych/Mental Status: Flat Assessment & Plan Assessment/Plan (1) Acute on chronic respiratory failure with hypoxia and hypercapnia: PLAN: Plan 1. Acute on chronic hypoxic and hypercapnic respiratory failure secondary to influenza A infection and superimposed bacterial pneumonia ? 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 Positive for influenza A on 12/25 at PCP office. Is on home 2 L nasal cannula. Required BiPAP on admit to maintain appropriate oxygen saturations. Chest x-ray showed acute bilateral infiltrates superimposed on chronic changes. Sputum culture grew 2+ Enterobacter. Treated with IV steroids, scheduled DuoNebs and IV antibiotics with good improvement. Continue p.o. prednisone, DuoNebs as needed and p.o. Levaquin for now. Plan to complete 7-day course of antibiotics total. Weaned down to 2 L nasal cannula by 01/06, continue to wean as able. 01/07/2025: She has not received any of her antibiotics for the last 3 days as they were continued as p.o. and it does not appear that it was ever changed to IV and nursing was just charting not given, she did receive 5 days of vancomycin and Zosyn as she received 1 day of p.o. Levaquin on 01/04/2025 2. Partial small bowel obstruction/ileus ? General Surgery following. Patient developed nausea with vomiting and abdominal distention during hospitalization with concern for small bowel obstruction. NG tube was placed with significant lightish brown output. KUB on 01/06 showed prominent bowel loops secondary to either ileus versus developing bowel obstruction. Per surgery, appears more consistent with ileus. Will continue NG tube with decompression of the bowel until tomorrow and then reassess for small bowel follow-through versus clamping trial of NG tube. Continue n.p.o. status. Continue mobilization as able. 01/07/2025: Awaiting general surgery's evaluation plan for possible NG tube clamping or removal 01/08/2025: NG tube has been removed and she is tolerating clear liquid diet. General surgery to advance diet as indicated 01/09/2025: She was having episodes of dysphagia yesterday, awaiting speech evaluation unclear as to the etiology 01/10/2025: Modified barium swallow did not show any significant signs of dysphagia and it seems like her reticence to eat was due more to bloating and ileus. Appreciate general surgery's assistance 3. Hypokalemia and hypomagnesemia/hypernatremia ? Presume secondary to poor p.o. intake. Repleting as needed. 01/07/2025: Hypernatremia, will start D5W and recheck in the morning, this is likely related to probable dehydration given her n.p.o. status with her small bowel obstruction. 01/08/2025: Sodium levels are improving we will continue to monitor. 01/09/2025: Can likely discontinue fluids though still pending BMP from this morning 01/10/2025: Sodium levels are back to normal, can discontinue IV fluids and resume torsemide 4. Pancytopenia ? Suspected multifactorial from acute infection and cirrhosis. Hemoglobin stable at baseline 10-11. WBC count stable around 3. Platelet count was slow downtrend since admission, baseline was around 60-70 and has now downtrended to 34. Continue to monitor CBC daily. SCDs for DVT prophylaxis. 01/07/2025: Platelets are down to 29, will continue to monitor it is felt that her pancytopenia is reactive to her acute infection as well as her history of cirrhosis. Would recommend outpatient monitoring with hematology 01/08/2025: Platelets are down to 26 will continue to monitor at this moment there is nothing to do as she is chronically thrombocytopenic from cirrhosis so in light of her influenza A and bacterial pneumonia as treatment progresses this would likely improve 01/09/2025: Platelet count has improved slightly we will continue to monitor 01/10/2025: It appears that platelets have reached their lance we will monitor 5. Suspected protein calorie malnutrition ? Nutrition consulted. Low albumin noted and suspected malnutrition in setting of poor p.o. intake recently. Appreciate nutrition recommendations. 6. Nonalcoholic fatty liver disease with complications including cirrhosis with ascites and esophageal varices s/p TIPS procedure ? Follows with Dr. Estrada. Has history of frequent paracenteses here. Last paracentesis was done in August with 7550 ml of fluid removed. No significant ascites noted on this admit, no need for paracentesis. Continue home torsemide, Aldactone and lactulose. 7. Acute on chronic debility ? PT/OT/case management following. Likely planning for home with home health care on discharge. 8. Class I obesity ? BMI 31 on admit. Complicates hospital course, care and prognosis. DVT: SCDs Charges/Coding Visit Charges Inpatient E&M: 43563 Subs Hosp L2
[2025-01-10 09:17] LABS: Platelet Estimate MKD DEC (ADEQ)
[2025-01-10] MEDS: levoFLOXacin 500 MG Tablet PO (10:24)
[2025-01-10] MEDS: Magnesium Chloride 64 MG Delay Rel.Tablet 128 MG PO ×2 (10:24→21:52)
--- NOTE | 2025-01-10 10:24 | PCM.PN.SRG ---
Subjective Subjective Patient seen and examined on rounds this morning. Family member was present for assistance with translation. She denies any issues or problems this morning. She states that the bloating that she was experiencing yesterday has resolved. She had at least 1 large liquid bowel movement yesterday which provided quite a bit of relief. She passed gas several times yesterday but she does not recall passing flatus this morning yet. She has been tolerating diet. Objective Data Objective Data Vital Signs: Vital Signs Temp Pulse Resp BP Pulse Ox O2 Del Method O2 Flow Rate 97.8 F 84 14 92/52 L 96 Nasal Cannula 2 01/10/25 10:19 01/10/25 10:19 01/10/25 10:19 01/10/25 10:19 01/10/25 10:19 01/10/25 10:19 01/10/25 10:19 FiO2 30 01/01/25 21:10 Oxygen Flow Rate (L/min) 2 Oxygen Delivery Method Nasal Cannula Weight: 183 lb 3.266 oz Body Mass Index (BMI) 34.6 Intake & Output: Intake and Output for Last 24 Hours 01/08/25 01/09/25 01/10/25 23:59 23:59 23:59 Intake Total 1946 / 1966 1566 / 1566 Output Total 1250 / 1250 1250 / 1250 Balance 1946 / 1816 316 / 316 -1220 / -1220 Lab / Micro Data 01/10/25 05:58 01/10/25 05:58 Labs: Laboratory Results - last 24 hr 01/10/25 05:58: WBC 4.5, RBC 3.43 L, Hgb 10.0 L, Hct 32.1 L, MCV 93.6, MCH 29.2, MCHC 31.2 L, RDW Std Deviation 59.8 H, RDW Coeff of Blas 17.7 H, Plt Count 29 L*, MPV 10.1, Immature Gran % (Auto) 0.700, Neut % (Auto) 66.1, Lymph % (Auto) 14.6 L, [place] % (Auto) 17.1 H, Eos % (Auto) 1.3, Baso % (Auto) 0.2, Absolute Neuts (auto) 3.0, Absolute Lymphs (auto) 0.66 L, Nucleated RBC % 0, Platelet Estimate MKD DEC, Sodium 137, Potassium 4.1, Chloride 90 L, Carbon Dioxide 43.7 H, Anion Gap 4 L, BUN 14, Creatinine 0.62 L, Estim Creat Clear Calc 91.96, Est GFR (MDRD) Non-Af 100, BUN/Creatinine Ratio 22.1 H, Glucose 109 H, Calcium 7.7 Micro: Microbiology 12/30/24 15:07 Blood Culture (Wb) - Anticubital Left Blood Culture - Final No growth in 5 days. 12/30/24 15:35 Blood Culture (Wb) - Anticubital Right Blood Culture - Final No growth in 5 days. 12/30/24 14:25 Sputum, Expectorated/Coughed Gram Stain - Final 12/30/24 14:25 Sputum, Expectorated/Coughed Respiratory Culture - Final Enterobacter spp. 12/31/24 12:10 Urine, Clean Catch Legionella Antigen - Final 12/31/24 12:10 Urine, Clean Catch Streptococcus pneumoniae Antigen (M - Final 12/31/24 11:25 Mucosa - Nasopharyngeal SARS-CoV-2, Influenza & RSV (PCR) - Final Influenzae A Physical Exam Narrative She is awake and alert. No acute distress. Abdomen is soft, nontender nondistended. Assessment & Plan Assessment/Plan (1) Ileus: PLAN: Plan Patient is a 64-year-old female admitted with respiratory failure who developed an ileus while hospitalized. This seems to be improving. I encouraged her and her family to get her up walking is much as possible as this will further stimulate bowel function. I also suggested that she be up to a chair more and more each day. She continues to progress nicely from a surgical standpoint. Will continue to follow Charges/Coding Visit Charges Inpatient E&M: 45280 Subs Hosp L2
[2025-01-10] MEDS: predniSONE 20 MG Tablet 40 MG PO (10:25)
[2025-01-10] MEDS: Potassium Chloride Oral Tablet 20 MEQ PO ×2 (10:25→16:56)
[2025-01-10] MEDS: Polyethylene Glycol 3350 17 GM PACKET PO (10:26)
[2025-01-10] MEDS: Pantoprazole Sodium 40 MG in 0.9% Normal Saline (100mL MB+) 100 ML 330 MG IV ×2 (10:26→21:52)
[2025-01-10] MEDS: Senna Tablet 2 TABLET PO ×2 (10:26→21:52)
[2025-01-10] MEDS: 0.9% Saline Lock 10 ML Syringe IV ×2 (10:28→21:52)
[2025-01-10] MEDS: Metoclopramide 5 MG TABLET PO (16:56)
[2025-01-10] MEDS: Torsemide 20 MG Tablet 40 MG PO (18:21)
[2025-01-10] MEDS: Spironolactone 50 MG Tablet 100 MG PO (21:52)
[2025-01-10 22:38] LABS: Pathologist Review May foll
[2025-01-11 05:50] VITALS: BP 119/67; PULSE 76; RESP 18; TEMP 36.4; O2SAT 98
[2025-01-11 05:57] LABS: Absolute Lymphocyte Count 1.27 X10^3/uL (0.83-4.51); Absolute Neutrophil Count 3.4 X10^3/uL (2.0-7.7); Basophil# 0.01 X10^3/uL; Basophil% 0.2 % (0-1); Eosinophil# 0.03 X10^3/uL; Eosinophils% 0.5 % (0-5); Hematocrit 30.8 % (37-47); Hemoglobin 9.7 g/dL (12.0-15.0); Lymphocyte # 1.27 X10^3/ul (0.83-4.51); Lymphocyte % 22.3 % (19-41); Mean Corp Hgb Conc 31.5 g/dL (32-36); Mean Corpuscular Hgb 29.3 pg (27.0-32.0); Mean Corpuscular Volume 93.1 fL (81-99); Mean Platelet Vol. 10.1 fl (6.2-12.0); Monocyte# 0.91 X10^3/uL; NRBC Flagged by Analyzer 0 % (0-5); Neutrophil # 3.43 X10^3/uL (2.7-7.7); Neutrophil % 60.3 % (47-70); POSITIVE COUNT YES; RBC Distribution Width CV 17.6 % (11.6-14.6); RBC Distribution Width SD 58.6 fl (35.1-43.9); Red Blood Count 3.31 M/mm3 (4.2-5.4); White Blood Count 5.7 K/mm3 (4.4-11.0)
[2025-01-11 06:00] VITALS: BMI 32.3
[2025-01-11 06:09] LABS: Platelet Count 39 K/mm3 (150-450)
[2025-01-11 06:10] LABS: Differential Indicated SCAN CRITERIA MET
[2025-01-11] MEDS: Lactulose 20 GM/30 ML UDC PO (06:19)
[2025-01-11] MEDS: Midodrine HCl 5 MG Tablet 20 MG PO ×2 (06:19→13:00)
[2025-01-11] MEDS: Metoclopramide 5 MG TABLET PO (06:19)
[2025-01-11 07:04] LABS: Anion Gap 6 (5-15); BUN 16 mg/dL (4-19); BUN/Creat Ratio 21.6 RATIO (10-20); Calcium,Total 7.9 mg/dL (7.6-11.0); Carbon Dioxide 41.1 mmol/L (21.0-32.0); Chloride 91 mmol/L (98-108); Creatinine, Serum 0.75 mg/dL (0.70-1.20); EST Glomerular Filtration Rate 91 (>60); Estimated Creatinine Clearance 73.32 ml/min (50-250); Glucose 92 mg/dL (70-99); Potassium 4.8 mmol/L (3.3-5.1); Sodium Level 138 mmol/L (133-145)
[2025-01-11 07:06] LABS: Anisocytosis 1+; Differential Comment SCANNED; Platelet Estimate MKD DEC (ADEQ)
[2025-01-11 07:07] LABS: Acanthocytes RARE; Microcytosis 1+; Pathologist Review May foll; Schistocytes RARE; Tear Drop Cell RARE
[2025-01-11 07:15] VITALS: O2SAT 94
--- NOTE | 2025-01-11 08:16 | PCM.PN.HOSP ---
Reason for Visit Reason for Visit: Diagnoses Unspecified infectious disease (12/30/24) Acute and chronic respiratory failure with hypoxia (12/30/24) Acute and chronic respiratory failure with hypercapnia (12/30/24) Unspecified intestinal obstruction, unspecified as to partial versus complete obstruction (12/30/24) Ileus, unspecified (12/30/24) Subjective Subjective Feeling better. Had BMs. Normally on 2 liter/m of oxygen at home. Objective Data Objective Data Vital Signs: Vital Signs Temp Pulse Resp BP Pulse Ox O2 Del Method O2 Flow Rate 36.4 C L 76 18 119/67 94 Nasal Cannula 2 01/11/25 05:50 01/11/25 05:50 01/11/25 05:50 01/11/25 05:50 01/11/25 07:15 01/11/25 07:15 01/11/25 07:15 FiO2 30 01/01/25 21:10 Oxygen Flow Rate (L/min) 2 Oxygen Delivery Method Nasal Cannula Weight: 77.6 kg Body Mass Index (BMI) 32.3 Intake & Output: Intake and Output for Last 24 Hours 01/09/25 01/10/25 01/11/25 23:59 23:59 23:59 Intake Total 1566 / 1566 250 / 690 440 / 440 Output Total 1250 / 1250 1250 / 2050 1400 / 1400 Balance 316 / 316 -1000 / -1360 -960 / -960 Lab / Micro Data 01/11/25 04:21 01/11/25 04:21 Labs: Laboratory Results - last 24 hr 01/10/25 05:58: Diff Path Review February, Platelet Estimate MKD 01/11/25 04:21: WBC 5.7, RBC 3.31 L, Hgb 9.7 L, Hct 30.8 L, MCV 93.1, MCH 29.3, MCHC 31.5 L, RDW Std Deviation 58.6 H, RDW Coeff of Blas 17.6 H, Plt Count 39 L*, MPV 10.1, Immature Gran % (Auto) 0.700, Neut % (Auto) 60.3, Lymph % (Auto) 22.3, [place] % (Auto) 16.0 H, Eos % (Auto) 0.5, Baso % (Auto) 0.2, Absolute Neuts (auto) 3.4, Absolute Lymphs (auto) 1.27, Nucleated RBC % 0, Differential Comment SCANNED, Diff Path Review May , Platelet Estimate MKD DEC, Anisocytosis 1+, Microcytosis 1+, Tear Drop Cells RARE, Acanthocytes (Spur) RARE, Schistocytes RARE, Sodium 138, Potassium 4.8, Chloride 91 L, Carbon Dioxide 41.1 H, Anion Gap 6, BUN 16, Creatinine 0.75, Estim Creat Clear Calc 73.32, Est GFR (MDRD) Non-Af 91, BUN/Creatinine Ratio 21.6 H, Glucose 92, Calcium 7.9 Micro: Microbiology 12/30/24 15:07 Blood Culture (Wb) - Anticubital Left Blood Culture - Final No growth in 5 days. 12/30/24 15:35 Blood Culture (Wb) - Anticubital Right Blood Culture - Final No growth in 5 days. 12/30/24 14:25 Sputum, Expectorated/Coughed Gram Stain - Final 12/30/24 14:25 Sputum, Expectorated/Coughed Respiratory Culture - Final Enterobacter spp. 12/31/24 12:10 Urine, Clean Catch Legionella Antigen - Final 12/31/24 12:10 Urine, Clean Catch Streptococcus pneumoniae Antigen (M - Final 12/31/24 11:25 Mucosa - Nasopharyngeal SARS-CoV-2, Influenza & RSV (PCR) - Final Influenzae A Physical Exam Const alert and no apparent distress HEENT head/scalp atraumatic and moist oral mucous membranes Resp normal respiratory effort, no retractions, no use of accessory muscles and clear to auscultation bilaterally Cardio regular rate, regular rhythm, S1 normal heart sound and S2 normal heart sound GI normal to inspection, nondistended, normoactive bowel sounds, soft to palpation, non-tender and non-distended Extremity normal to inspection and full ROM Assessment & Plan Assessment/Plan (1) Ileus: PLAN: 2/2 underlying infection has had BMs. Feeling better. (2) Influenza: PLAN: Did not receive oseltamavir. Was treated with abx. Completed treatment with prednisone (3) Difficulty swallowing: PLAN: Chronic MBS on the . Pureed textures and thin liquids Follow up with ST as outpt. PLAN: Plan Chronic conditions: Cirrhosis: continue spironolactone and torsemide. DC potassium. Continue midodrine. Continue lactulose. VTE prophylaxis: SCDs. DC home. DW patient's daughter. Patient is to go home with family. Pt does not speak Japanese. I was able to communicate with her in my limited eritrean, but with her permission, using the daughter to translate.
[2025-01-11 10:11] VITALS: BP 102/54; PULSE 94; RESP 17; TEMP 36.8; O2SAT 99
[2025-01-11] MEDS: Senna Tablet 2 TABLET PO (10:15)
[2025-01-11] MEDS: Magnesium Chloride 64 MG Delay Rel.Tablet 128 MG PO (10:16)
[2025-01-11] MEDS: Polyethylene Glycol 3350 17 GM PACKET PO (10:16)
[2025-01-11] MEDS: Torsemide 20 MG Tablet 40 MG PO (10:16)
[2025-01-11] MEDS: Pantoprazole Sodium 40 MG in 0.9% Normal Saline (100mL MB+) 100 ML 330 MG IV (10:23)
[2025-01-11] MEDS: 0.9% Saline Lock 10 ML Syringe IV (10:24)
[2025-01-11 10:35] VITALS: O2SAT 88
--- NOTE | 2025-01-11 10:58 | DS.PCM_ITS ---
Providers Date of Admission: 12/30/24 Primary Care Physician: Dr. Darlene Garibay MD Consultations 12/30/24 20:30 Consult: Bonding Machine Setter / Pulmonary Medicine Routine Consulting Provider: Intensivists/Pulmonary Med Reason for Consult: flu A with acute respiratory failure EMERGENT Consult: No Notified: Yes Date Notified: 12/31/24 Time Notified: 05:13 Method of Notification: Text 01/05/25 09:47 Consult: General Surgery Routine Consulting Provider: Jelani Celis Reason for Consult: Recurrent small bowel obstruction EMERGENT Consult: No Notified: Yes Date Notified: 01/05/25 Time Notified: 09:47 Method of Notification: Verbal Reason For Visit: INFLUENZA A W/ ACUTE RESPIRATORY FAILURE Diagnosis Discharge Diagnosis (1) Ileus: Status: Acute Code(s): K56.7 - Ileus, unspecified Plan: 2/2 underlying infection has had BMs. Feeling better. (2) Influenza: Status: Acute Code(s): J11.1 - Influenza due to unidentified influenza virus with other respiratory manifestations Plan: Did not receive oseltamavir. Was treated with abx. Completed treatment with prednisone (3) Difficulty swallowing: Status: Acute Code(s): R13.10 - Dysphagia, unspecified Plan: Chronic MBS on the . Pureed textures and thin liquids Follow up with ST as outpt. Plan Chronic conditions: * Cirrhosis: continue spironolactone and torsemide. DC potassium. Continue midodrine. Continue lactulose. VTE prophylaxis: SCDs. DC home. DW patient's daughter. Patient is to go home with family. Pt does not speak Icelandic. I was able to communicate with her in my limited northern irish, but with her permission, using the daughter to translate. Medications at Discharge Home Medications spironolactone 100 mg tablet 200 mg PO DAILY 04/17/24 torsemide 20 mg tablet 40 mg PO BID 04/17/24 albuterol sulfate 2.5 mg/3 mL (0.083 %) solution for nebulization 2.5 mg continuous nebulization BID 12/30/24 lactulose 10 gram/15 mL oral solution 30 ml PO TID 12/30/24 midodrine 10 mg tablet 20 mg PO Q6H 12/30/24 polyethylene glycol 3350 17 gram/dose oral powder (ClearLax) 17 g PO BID 12/30/24 sennosides 8.6 mg capsule (senna) 17.2 mg PO BID 12/30/24 Hospital Course Operations None Procedures None Summary of Care Provided Minutes Spent on Discharge: 32 Hospital Course: Patient presented with acute on chronic hypoxic and hypercapnic respiratory failure. Patient had influenza A and was not treated with Tamiflu but that was treated with superimposed bacterial infection with antibiotics. Patient's course became complicated by concerns for developing small bowel obstruction which was likely determined to be an ileus. That was slow to recover. I took over the patient's care today and the patient is feeling much better at this time. I discussed with the patient's daughter, doing the patient lives with, and plan is for her to go back home with family. Weight / BMI Weight Weight: 77.6 kg Body Mass Index (BMI) 32.3 ABG / Lab / Microbiology Data 01/11/25 04:21 01/11/25 04:21 Laboratory: Laboratory Results - last 24 hr 01/10/25 05:58: Diff Path Review Natalie hillman 01/11/25 04:21: WBC 5.7, RBC 3.31 L, Hgb 9.7 L, Hct 30.8 L, MCV 93.1, MCH 29.3, MCHC 31.5 L, RDW Std Deviation 58.6 H, RDW Coeff of Blas 17.6 H, Plt Count 39 L*, MPV 10.1, Immature Gran % (Auto) 0.700, Neut % (Auto) 60.3, Lymph % (Auto) 22.3, [place] % (Auto) 16.0 H, Eos % (Auto) 0.5, Baso % (Auto) 0.2, Absolute Neuts (auto) 3.4, Absolute Lymphs (auto) 1.27, Nucleated RBC % 0, Differential Comment SCANNED, Diff Path Review February kady, Platelet Estimate MKD DEC, Anisocytosis 1+, Microcytosis 1+, Tear Drop Cells RARE, Acanthocytes (Spur) RARE, Schistocytes RARE, Sodium 138, Potassium 4.8, Chloride 91 L, Carbon Dioxide 41.1 H, Anion Gap 6, BUN 16, Creatinine 0.75, Estim Creat Clear Calc 73.32, Est GFR (MDRD) Non-Af 91, BUN/Creatinine Ratio 21.6 H, Glucose 92, Calcium 7.9 Microbiology: Microbiology 12/30/24 15:07 Blood Culture (Wb) - Anticubital Left Blood Culture - Final No growth in 5 days. 12/30/24 15:35 Blood Culture (Wb) - Anticubital Right Blood Culture - Final No growth in 5 days. 12/30/24 14:25 Sputum, Expectorated/Coughed Gram Stain - Final 12/30/24 14:25 Sputum, Expectorated/Coughed Respiratory Culture - Final Enterobacter spp. 12/31/24 12:10 Urine, Clean Catch Legionella Antigen - Final 12/31/24 12:10 Urine, Clean Catch Streptococcus pneumoniae Antigen (M - Final 12/31/24 11:25 Mucosa - Nasopharyngeal SARS-CoV-2, Influenza & RSV (PCR) - Final Influenzae A D/C Instructions Discharge Diet: Low fat / Low cholesterol, 2000 mg Sodium Diet and - (pureed textures. ) DC O2, CPAP, BIPAP Needs PSN CPAP & BiPAP: BiPAP & CPAP Settings per PSN Mode BiPAP 01/01/25 21:10 Bipap Delivery Device Face Mask 01/01/25 21:10 BiPAP Inspiratory Pressure 12 01/01/25 21:10 BiPAP Expiratory Pressure 6 01/01/25 21:10 BiPAP Rate 12 01/01/25 21:10 Fraction of Inspired Oxygen ( 30 01/01/25 21:10 FIO2) Home O2 Discharge instructions: Yes Type of respiratory needs?: Oxygen Oxygen frequency: Continuous Continuous oxygen liters per minute: 2 DC home with Oxygen: Yes Home O2 MD Review: I have reviewed the oxygen testing, and the patient qualifies for home oxygen equipment and portability. The patient is mobile in the home and the community. Meaningful Use Info Meaningful Use Meaningful Use Diagnoses (Choose all that apply): None applicable Ischemic Stroke Statin Dosing Therapy Reference: STATIN DOSE THERAPY REFERENCE: * Patients > 75 years receive moderate or high dose statin therapy. * Patients 75 years or YOUNGER should receive HIGH intensity statin dose unless contraindicated. You will be required to document reason for non-treatment if statin daily dose does not meet guidelines. HIGH DOSE STATIN THERAPY DAILY Atorvastatin > than or = to 40 mg Rosuvastatin > than or = to 20 mg Amlodipine + Atorvastatin > than or = to 2.5/40 mg Ezetimibe + Simvastatin 10/80 mg Simvastatin 80mg Discharge Plan Admission Admit Date/Time: 12/30/24 15:56 Primary Reason for Your Visit: Influenza. Pneumonia. Ileus. Attending Provider: Brodie Dumont Primary Care Provider: Darlene Garibay Consulting Providers: Domingo Rojas; Jelani Celis; Rick Rivera; Abdiel Grimaldo Discharge Orders/Prescriptions Prescriptions: Continued torsemide 20 mg tablet 40 mg PO BID spironolactone 100 mg tablet 200 mg PO DAILY albuterol sulfate 2.5 mg /3 mL (0.083 %) solution for nebulization 2.5 mg continuous nebulization BID lactulose 10 gram/15 mL solution 30 ml PO TID midodrine 10 mg tablet 20 mg PO Q6H polyethylene glycol 3350 [ClearLax] 17 gram/dose powder 17 g PO BID senna 8.6 mg capsule 17.2 mg PO BID Referrals / Follow Up: Darlene Garibay MD [Primary Care Provider] - Within 2 Weeks Disposition Disposition (needs filled in before D/C Order can be placed): Home, Self Care Charges/Coding Visit Charges Inpatient E&M: 64750 Disch Hosp >30min
[2025-01-11 11:53] VITALS: O2SAT 93; O2SAT 99
[2025-01-11 12:00] VITALS: O2SAT 99
--- NOTE | 2025-01-11 12:43 | PN.SURG_ITS ---
Subjective Subjective Patient seen and evaluated this morning on rounds. She is without complaints. Her daughter was present and assisted with translation. She states that she is passing flatus and had some bowel movements. She was sitting up to a chair this morning and was tolerating diet. Discharge today as anticipated. Objective Data Objective Data Vital Signs: Vital Signs Temp Pulse Resp BP Pulse Ox O2 Del Method O2 Flow Rate 98.3 F 94 17 102/54 L 99 Room Air 2 01/11/25 10:11 01/11/25 10:11 01/11/25 10:11 01/11/25 10:11 01/11/25 12:00 01/11/25 10:35 01/11/25 12:01 FiO2 30 01/01/25 21:10 Oxygen Flow Rate (L/min) 2 Oxygen Delivery Method Room Air Weight: 171 lb 1.259 oz Body Mass Index (BMI) 32.3 Intake & Output: Intake and Output for Last 24 Hours 01/09/25 01/10/25 01/11/25 23:59 23:59 23:59 Intake Total 1566 / 1566 250 / 690 550 / 550 Output Total 1250 / 1250 1250 / 2050 1400 / 1400 Balance 316 / 316 -1000 / -1360 -850 / -850 Lab / Micro Data 01/11/25 04:21 01/11/25 04:21 Labs: Laboratory Results - last 24 hr 01/10/25 05:58: Diff Path Review Natalie hillman 01/11/25 04:21: WBC 5.7, RBC 3.31 L, Hgb 9.7 L, Hct 30.8 L, MCV 93.1, MCH 29.3, MCHC 31.5 L, RDW Std Deviation 58.6 H, RDW Coeff of Blas 17.6 H, Plt Count 39 L*, MPV 10.1, Immature Gran % (Auto) 0.700, Neut % (Auto) 60.3, Lymph % (Auto) 22.3, [place] % (Auto) 16.0 H, Eos % (Auto) 0.5, Baso % (Auto) 0.2, Absolute Neuts (auto) 3.4, Absolute Lymphs (auto) 1.27, Nucleated RBC % 0, Differential Comment SCANNED, Diff Path Review February kady, Platelet Estimate MKD DEC, Anisocytosis 1+, Microcytosis 1+, Tear Drop Cells RARE, Acanthocytes (Spur) RARE, Schistocytes RARE, Sodium 138, Potassium 4.8, Chloride 91 L, Carbon Dioxide 41.1 H, Anion Gap 6, BUN 16, Creatinine 0.75, Estim Creat Clear Calc 73.32, Est GFR (MDRD) Non-Af 91, BUN/Creatinine Ratio 21.6 H, Glucose 92, Calcium 7.9 Micro: Microbiology 12/30/24 15:07 Blood Culture (Wb) - Anticubital Left Blood Culture - Final No growth in 5 days. 12/30/24 15:35 Blood Culture (Wb) - Anticubital Right Blood Culture - Final No growth in 5 days. 12/30/24 14:25 Sputum, Expectorated/Coughed Gram Stain - Final 12/30/24 14:25 Sputum, Expectorated/Coughed Respiratory Culture - Final Enterobacter spp. 12/31/24 12:10 Urine, Clean Catch Legionella Antigen - Final 12/31/24 12:10 Urine, Clean Catch Streptococcus pneumoniae Antigen (M - Final 12/31/24 11:25 Mucosa - Nasopharyngeal SARS-CoV-2, Influenza & RSV (PCR) - Final Influenzae A Physical Exam Narrative She is alert and oriented x 3. She is in no acute distress. Abdomen is soft nontender nondistended. Assessment & Plan Assessment/Plan (1) Ileus: PLAN: Plan The patient is a 64-year-old female with a resolved ileus. She is anticipated to be discharged later today. After discharge, I recommended smaller more frequent meals and again encouraged frequent ambulation. No follow-up needed from a surgical standpoint Charges/Coding Visit Charges Inpatient E&M: 80491 Subs Hosp L2
== END 2025-01-11 14:23 | disposition home or self-care (01) | DRG 388 ==
LOC: ED 15:13 → ICU 12-31 07:16 → PCU 01-01 17:57 → ICU 01-01 21:29 → PCU 01-03 13:54
PROVIDERS: Family Medicine; Internal Medicine; Internal Medicine Critical Care Medicine; Admitting Provider Hospitalist; Emergency Provider Emergency Medicine; PCP Family Medicine
DX: K56.7 Ileus, unspecified (principal); J96.21 Acute and chronic respiratory failure with hypoxia; J96.22 Acute and chronic respiratory failure with hypercapnia; G93.41 Metabolic encephalopathy; J15.69 Pneumonia due to other Gram-negative bacteria; E46 Unspecified protein-calorie malnutrition; R18.8 Other ascites; I85.00 Esophageal varices without bleeding; D61.818 Other pancytopenia; J90 Pleural effusion, not elsewhere classified; E87.0 Hyperosmolality and hypernatremia; J43.9 Emphysema, unspecified; Z68.31 Body mass index [BMI] 31.0-31.9, adult; J10.1 Influenza due to other identified influenza virus with other respiratory manifestations; K74.69 Other cirrhosis of liver; K75.81 Nonalcoholic steatohepatitis (NASH); E88.09 Other disorders of plasma-protein metabolism, not elsewhere classified; K76.82 Hepatic encephalopathy; E87.6 Hypokalemia; J84.111 Idiopathic interstitial pneumonia, not otherwise specified; J11.1 Influenza due to unidentified influenza virus with other respiratory manifestations; K56.690 Other partial intestinal obstruction; D69.6 Thrombocytopenia, unspecified; E66.811 Obesity, class 1; Z68.32 Body mass index [BMI] 32.0-32.9, adult; R13.10 Dysphagia, unspecified; Z98.890 Other specified postprocedural states
CPT/HCPCS: 36415; 36600; 71045; 71046; 74018; 74019; 74177; 74230; 76705; 80048; 80053; 80202; 82140; 82310; 82803; 82962; 83605; 83735; 84100; 84132; 84145; 85025; 85027; 87040; 87070; 87077; 87186; 87205; 87449; 87631; 92526; 92610; 92611; 93005; 94002; 94003; 94640; 94668; 94762; 97110; 97116; 97162; 97166; 97530; 97535; 99284; Q9967; A4216; J0612; J0696; J1940; J2405

== ENCOUNTER 2025-01-14 13:03 | Outpatient (RCR) | payer SELFPAY ==
--- NOTE | 2025-01-14 14:36 | HP.SP.EV_ITS ---
Visit History Visit Info Date of Eval: 01/14/25 Visit: 1 Pool Attendant: EMILIE History Attending Doctor: Referring Doctor: Reason for Referral: DYSPHAGIA RX HERE [facility] [place] SPEAK[facility]! Medical Diagnosis: Oral Dysphagia R13.11 Date of Onset of Diagnosis: 01-09-25 Previous speech therapy: Yes Results: Evaluation, treatment, and MBSS. MBSS 01-11-24: Diagnosis/Impression Diagnosis: Moderate oral dysphagia R13.11 Impression: The oral phase is marked by... -Loss of >1/2 of various boluses to the vallecula prior to swallow onset. -Lingual pumping for A-P transport. -Moderate oral residue of pudding, which mostly cleared w/ a second swallow. -Could not assess mastication as the patient declined cookie trial. The pharyngeal phase appeared grossly WNL. Swallow onset w/ bolus in the vallecula. Despite two coughs immediately following sips of liquids during the MBSS, no aspiration or laryngeal penetration was observed during the study. Trace pharyngeal residues due to good pharyngeal motility. MBSS recommendations: Diet: Puree Textures and Thin Liquids Compensatory Strategies: Small Bites, Small Sips, Slow Rate, Sitting upright and Remain sitting upright for 30 minutes after PO intake Supervision: 1:1 Direct Supervision (Assist Feeding - Family is ok to assist feeding and provide supervision) Recommend Repeat Modified Barium Swallow: No Need for Skilled Speech Therapy Services: Yes Comment: Follow for ongoing assessment of diet tolerance and training in strategies to decrease risk for aspiration. RADIO ELECTRONICS TECHNICIAN to trial soft solids in upcoming sessions to consider further diet advancement. Other Relevant Medical History/Diagnoses/Surgery: Uses wheelchair, Non-smoker, Tuberculosis, Wears glasses, Walker as ambulation aid, Jaundice, Difficulty swallowing, Nausea, S/P abdominal paracentesis, Loss of consciousness, Chronic cough, On home oxygen therapy, SOB on exertion, Chronic anemia, Abdominal ascites, Emphysema lung, Hypoxia, Lung bullae, Lactic acidosis, Appendicitis, Cholecystitis, Bronchitis. Medications related to this diagnosis: n/a Smoking Status: Never smoker Diagnosis Diagnosis: Oral Dysphagia R13.11 Pain Is pain an issue with your current prescribed condition?: No Personal Preferred language: Faroese Patient Allergies Allergies Allergies: Allergies No Known Allergies Allergy (Verified 12/30/24 11:53) Subjective Dysphagia Current Diet Solids Current Diet: Pureed Current Diet Liquids Current Liquids: Thin Kulk[place]i free water Protocol: No Comments Comments: -: Patient hospitalized at [facility] 12/30/2024-01/11/25 for hypoxia and Influenza A. Chest x-ray: acute bilateral infiltrates superimposed on chronic changes with significant right-sided infiltrates. On BiPAP in the ED and admitted for care. Stay complicated by small bowel obstruction. Patient referred to ST during hospitalization due to coughing with meals and liquids. MBSS completed with no significant findings. Patient with limited participation in ST during acute stay due to fatigue. Unable to trial solids s/p MBSS. Referred to outpatient ST for dysphagia assessment and management. Objective Dysphagia Administered by Administered by: Self Thin Liquids Administred via: Cup and Straw Oral Transit: Delay > 1 seconds Bolus clearance: fully cleared Gagging: No Cough: none observed/unable to assess Pharyngeal phase: immediate laryngeal elevation Patient Report: Patient and daughter deny dysphagia. Daughter reports patient coughing with meals and liquids prior to ED, and states that once Flu A resolved, dysphagia did as well. Regular Oral Preparation: WNL Oral Transit: Delay > 1 seconds Bolus clearance: significant clearance/minimal residue Gagging: No Cough: none observed/unable to assess Pharyngeal phase: immediate laryngeal elevation Patient Report: Denies sensation of globus. Comments: Patient's daughter interpreted during assessment as needed. Patient consumed 8 bites cubed, canned peaches; 6 oz. thin water via cup and straw; and 5 bites elaine cracker free of clinical indications of dysphagia or pulmonary compromise. Patient oral cavity clear and slightly dry, which impacted bolus breakdown, cohesion, and oral clearance with elaine cracker, however patient independently utilized liquid wash and lingual sweeps to promote oral clearance of mild dental and medial lingual residue. Oral phase WNL with use of self- imposed swallow guidelines. Additionally, daughter reports reinforcing upright positioning for all intake, cueing PRN for small bite/sip, and slow rate of intake. Given these results, lack of patient/caregiver concerns, and MBSS results, RADIO ELECTRONICS TECHNICIAN recommends diet advancement to regular easy to chew textures with additional moistening agents and thin liquids. RADIO ELECTRONICS TECHNICIAN provided written instructions for diet recommendations and swallow guidelines. Patient and daughter able to demonstrate teachback. No ST indicated at this time. Swallowing Impairment Contributing Factors to Swallowing Impairment: Impaired Oral-Pharyngeal Transport and Other Other: Xerostomia Impact Impact on Safety & Functioning: No Limitations Recommendations Modified Barium Swallow/Cookie Swallow Recommended: No Swallowing Treatment: No Diet Texture Recommendations Solids: Easy to Chew (Level 7) Liquids: Thin (Level 0) Other liquids: Thin Kulkarni free water Protocol: No Safety Saftey Precautions/Swallowing Recommendations (Check all that Apply): Small Sips & Bites when Eating and Alternate Liquids & Solids Results Swallowing Within Normal Limits: Yes Swallowing Diagnosis: Oral Phase Dysphagia (R13.11) Severity: Mild Reference: Neuro-QoL instrument Radiation Oncology Patient Plan Plan Plan: No ST indicated at this time. Recommendations Treatment Warranted: No Progress Prognosis: Good Frequency Frequency: Evaluation only Education Patient has Indicated that the Following Identified Educational Needs: Language Barrier Other Educational Needs: Family to interpret as Romansh is primary and only language The Patient has indicated that they have no educational or learning abilities that may effect their care.: Yes Patient Instruction Patient Education: Diagnosis and Diet Level Other Education: Swallow Guidelines; means of modifying and moistening foods PRN Person Taught: Patient and Family Teaching Method: Discussion, Demonstration, Handout and Teach Back Response to teaching: Return Demonstration, Verbalize Understanding and Teaching Completed
== END 2025-01-14 19:00 | disposition home or self-care (01) ==
LOC: SP 13:03
PROVIDERS: PCP Family Medicine
DX: R13.11 Dysphagia, oral phase (principal)
CPT/HCPCS: 92610

== ENCOUNTER → 2025-06-05 | Outpatient (CLI) | payer SELFPAY ==
--- NOTE | 2025-06-05 11:05 | RAD_ITS ---
PROCEDURE: KNEE 4 OR MORE VIEWS 06/05/2025 REASON FOR EXAM: POSTERIOR KNEE PAIN TECHNIQUE: KNEE 4 OR MORE VIEWS Laterality: Left knee COMPARISON: None FINDINGS: Bones: There is evidence of geographical lucency along the medial aspect of the patella. Possible infectious process should be ruled out. Joints: Minimal narrowing of the medial compartment of the knee joint. Effusion: Tiny joint effusion. Soft tissues: Soft tissue swelling. Other: RAD/Knee 4 or More Views IMPRESSION: Geographical lucency along the medial aspect of the patella as described. Poss ible infectious process. Clinical correlation recommended. Minimal narrowing of the medial compartment of the knee joint. Tiny joint effusion and soft tissue swelling. Reading Location: [place]
--- NOTE | 2025-06-05 11:06 | VDLE_ITS ---
Reason For Study Reason For Study: Left leg pain RIGHT LEFT CFV is compressible, spontaneous, phasic, competent GSV is normal. and demonstrates normal augmentation. CFV is compressible, spontaneous, phasic, competent, Procedure and demonstrates normal augmentation. This is a venous duplex using B-mode, color flow and FV is compressible, spontaneous, phasic, competent spectral Doppler. and demonstrates normal augmentation. Exam performed in department. POP V is compressible, spontaneous, phasic, competent A preliminary report was called and/or faxed to and demonstrates normal augmentation. [place]. T/P Trunk is compressible. PTV is compressible. LT PerV is compressible. VL/Venous Duplex US, Unilateral Interpretation Summary Deep veins of the left lower extremity are patent and compressible segmentally. There is no evidence of left lower extremity deep vein thrombosis. Valvular competence appears intact within the p roximal deep venous system on the left . The left great saphenous vein appears patent and compressible segmentally. The right common femoral vein is patent and compressible . Ordering Physician: Darlene Garibay Referring Physician: Darlene Garibay Performed By: Katherine Mak RVT
[2025-06-05 12:29] LABS: Hematocrit 34.3 % (37-47); Hemoglobin 11.1 g/dL (12.0-15.0); Immature Granulocytes Count 0.000 X10^3/uL (0.0-0.0); Mean Corp Hgb Conc 32.4 g/dL (32-36); Mean Corpuscular Volume 96.9 fL (81-99); Mean Platelet Vol. 9.5 fl (6.2-12.0); NRBC Flagged by Analyzer 0 % (0-5); POSITIVE COUNT YES; Platelet Count 83 K/mm3 (150-450); RBC Distribution Width CV 15.6 % (11.6-14.6); RBC Distribution Width SD 55.9 fl (35.1-43.9); Red Blood Count 3.54 M/mm3 (4.2-5.4); White Blood Count 3.7 K/mm3 (4.4-11.0)
[2025-06-05 12:40] LABS: Prothrombin Time (Protime)PT. 22.1 SECONDS (11.7-14.9)
[2025-06-05 12:41] LABS: Partial Thromboplast Time 50.1 Seconds (24.1-36.2)
[2025-06-05 13:09] LABS: AST(SGOT) 40 U/L (<=31); Alanine Aminotransfer ALT/SGPT 20 U/L (<=34); Albumin, Serum 2.7 g/dL (3.4-4.8); Alkaline Phosphatase 231 U/L (35-104); Anion Gap 6 (5-15); BUN 18 mg/dL (4-19); BUN/Creat Ratio 27.6 RATIO (10-20); Calcium,Total 8.0 mg/dL (7.6-11.0); Carbon Dioxide 34.0 mmol/L (21.0-32.0); Chloride 99 mmol/L (98-108); Globulin 3.4 g/dL (2.2-4.2); Glucose 87 mg/dL (70-99); Potassium 3.8 mmol/L (3.3-5.1)
== END | disposition home or self-care (01) ==
LOC: CVS 11:05
PROVIDERS: PCP Family Medicine; Referring Provider Family Medicine; Visit Provider Family Medicine
DX: M79.605 Pain in left leg (principal); M25.562 Pain in left knee; Z86.718 Personal history of other venous thrombosis and embolism
CPT/HCPCS: 36415; 73564; 80053; 85025; 85610; 85730; 93971